=== PATIENT | female | born 1955 | race Caucasian/White ===

== ENCOUNTER 2016-09-02 22:15 | Outpatient (CLI) | payer MEDICARE | END 2016-09-02 22:16 | disposition short-term general hospital (02) | DX: S81.802A Unspecified open wound, left lower leg, initial encounter (principal); W05.0XXA Fall from non-moving wheelchair, initial encounter; Y92.038 Other place in apartment as the place of occurrence of the external cause | CPT/HCPCS: A0425; A0429 ==

== ENCOUNTER 2016-09-25 18:08 | Outpatient (CLI) | payer MEDICARE | END 2016-09-25 18:09 | disposition short-term general hospital (02) | LOC: EMS 18:08 | PROVIDERS: ATTEND Surgery | DX: R68.89 Other general symptoms and signs (principal) | CPT/HCPCS: A0425; A0429 ==

== ENCOUNTER 2016-10-10 11:51 | Outpatient (CLI) | payer MEDICARE | END 2016-10-10 11:52 | disposition short-term general hospital (02) | LOC: EMS 11:51 | PROVIDERS: ATTEND Surgery | DX: G43.909 Migraine, unspecified, not intractable, without status migrainosus (principal) | CPT/HCPCS: A0425; A0429 ==

== ENCOUNTER 2017-01-25 23:15 | Outpatient (CLI) | payer MEDICARE | END 2017-01-25 23:16 | disposition short-term general hospital (02) | LOC: EMS 23:15 | PROVIDERS: ATTEND Surgery | DX: R58 Hemorrhage, not elsewhere classified (principal) | CPT/HCPCS: A0425; A0429 ==

== ENCOUNTER 2017-01-30 17:11 | Outpatient (CLI) | payer MEDICARE | END 2017-01-30 17:12 | disposition short-term general hospital (02) | LOC: EMS 17:11 | PROVIDERS: ATTEND Surgery | DX: M79.606 Pain in leg, unspecified (principal); M25.559 Pain in unspecified hip | CPT/HCPCS: A0425; A0429 ==

== ENCOUNTER 2017-07-18 13:27 | Outpatient (CLI) | payer MEDICARE | END 2017-07-18 13:28 | disposition EMS.NT | LOC: EMS 13:27 | PROVIDERS: ATTEND Surgery | DX: Z03.89 Encounter for observation for other suspected diseases and conditions ruled out (principal) ==

== ENCOUNTER 2017-07-22 10:06 | Outpatient (CLI) | payer MEDICARE | END 2017-07-22 10:07 | disposition short-term general hospital (02) | LOC: EMS 10:06 | PROVIDERS: ATTEND Surgery | DX: R58 Hemorrhage, not elsewhere classified (principal); R05 Cough | CPT/HCPCS: A0425; A0429 ==

== ENCOUNTER 2017-09-26 13:26 | Outpatient (CLI) | payer MEDICARE | END 2017-09-26 13:27 | disposition short-term general hospital (02) | LOC: EMS 13:26 | PROVIDERS: ATTEND Surgery | DX: S91.309A Unspecified open wound, unspecified foot, initial encounter (principal); X58.XXXA Exposure to other specified factors, initial encounter | CPT/HCPCS: A0425; A0429 ==

== ENCOUNTER 2017-10-12 16:18 | Outpatient (CLI) | payer MEDICARE | END 2017-10-12 16:19 | disposition EMS.NT | LOC: EMS 16:18 | PROVIDERS: ATTEND Surgery | DX: Z03.89 Encounter for observation for other suspected diseases and conditions ruled out (principal) ==

== ENCOUNTER 2018-02-27 15:46 | Outpatient (CLI) | payer MEDICARE | END 2018-02-27 15:47 | disposition critical access hospital (66) | LOC: EMS 15:46 | PROVIDERS: ATTEND Surgery | DX: R51 Headache (principal); R10.2 Pelvic and perineal pain; R19.7 Diarrhea, unspecified | CPT/HCPCS: A0425; A0429 ==

== ENCOUNTER 2018-02-27 16:31 | Emergency (ER) | payer MEDICARE ==
--- NOTE | 2018-02-27 17:06 | ED Physician Documentation ---
PD HPI ABD PAIN - Stated complaint Stated Complaint: ABD PX - Chief complaint Chief Complaint: General - History obtained from History obtained from: Patient - History of Present Illness Timing - onset: Today Timing - duration: Days (1) Timing - details: Gradual onset, Still present Quality: Cramping, Aching, Pain (She is having pain in the lower abdomen and pelvic area progressive through the day. 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 She states she was unable to pass a catheter today as she typically would. She is feeling that her bladder is full. She has pain in the bladder and pelvic area into the low back. She had not noticed any fever or chills. She had not noticed dysuria but typically does not have sensation in that area. She also had an onset of a migraine type headache through the afternoon.) Location: Suprapubic Radiation: Left flank, Right flank Worsened by: Moving, Palpation Associated symptoms: Nausea, Other (unable to self cath as usual, feeling the catheter did not want to go in.). No: Fever, Diarrhea Similar symptoms before: Has not had sx before Recently seen: Not recently seen Review of Systems Constitutional: denies: Fever, Chills, Myalgias Nose: denies: Rhinorrhea / runny nose, Congestion Throat: denies: Sore throat Respiratory: denies: Cough GI: reports: Abdominal Pain, Nausea. denies: Vomiting, Constipation : denies: Incontinent Skin: denies: Rash, Lesions Neurologic: reports: Headache (this afternoon, feeling like migraine) PD PAST MEDICAL HISTORY - Past Medical History Cardiovascular: None Respiratory: None Musculoskeletal: Paraplegia (due to spinal cord injury) - Present Medications Home Medications: Ambulatory Orders Medication Instructions Recorded Confirmed 5-Hydroxytryptophan (5-Htp) [5-Htp] 100 mg PO BID 10/07/12 10/07/12 Aspirin EC [Ecotrin] 325 mg PO BID 10/07/12 10/07/12 Diphenhydramine HCl [Benadryl] 50 mg PO PRN 10/07/12 10/07/12 Anh 500 mg PO DAILY 10/07/12 10/07/12 Metoclopramide [Reglan] 5 mg PO Q6H 10/07/12 10/07/12 Morphine Sulfate [Ms Contin] 30 mg PO TID 10/07/12 10/07/12 Multivitamin [Multivitamins] 1 each PO BID 10/07/12 10/07/12 Ondansetron Oral Soln [Zofran] 4 mg PO Q6H PRN 10/07/12 10/07/12 Oxybutynin [Ditropan] 10 mg PO TID 10/07/12 10/07/12 Prochlorperazine [Compazine] 5 mg PO Q6H PRN 10/07/12 10/07/12 Sennosides [Senna] 8.6 mg PO PRN 10/07/12 10/07/12 Vitamin E (Dl,Tocopheryl Acet) 15 unit PO BID 10/07/12 10/07/12 [Vitamin E] Ceftriaxone [Rocephin] 2 gm IV DAILY 01/08/13 01/08/13 Docusate Sodium 250 mg PO 01/08/13 01/08/13 Loratadine 10 mg PO DAILY 01/08/13 01/08/13 Vancomycin HCl in Dextrose 5 % 750 mg IV BID 01/08/13 01/08/13 [Vancomycin 750 mg/150 ml Bag] Cephalexin [Keflex] 500 mg PO QID #24 capsule 02/28/18 Ondansetron Odt [Zofran] 4 mg TL Q6H PRN #15 tablet 02/28/18 - Allergies Allergies/Adverse Reactions: Allergies Allergy/AdvReac Type Severity Reaction Status Date / Time Penicillins Allergy Mild Rash Verified 02/27/18 17:52 chlorhexidine Allergy Unknown Itching Verified 02/05/13 14:16 PD ED PE NORMAL - Vitals Vital signs reviewed: Yes - General General: Alert and oriented X 3, Well developed/nourished, Other (appears uncomfortable) - HEENT HEENT: Atraumatic, Pharynx benign - Neck Neck: Supple, no meningeal sign, No adenopathy - Cardiac Cardiac: RRR, No murmur - Respiratory Respiratory: Clear bilaterally - Abdomen Abdomen: Normal bowel sounds, Soft, Other (some distension in suprapubic area; bladder scanner showed about 400 ml. Tender suprapubic area. ) - Female Female : Deferred - Back Back: No CVA TTP - Derm Derm: Normal color, Warm and dry Results - Vitals Vitals: Vital Signs - 24 hr 02/27/18 02/27/18 02/27/18 16:39 19:43 22:16 Temperature 36.6 C 36.7 C Heart Rate 100 76 85 Respiratory 100 H 16 18 Rate Blood Pressure 157/83 H 126/78 133/68 H O2 Saturation 97 100 97 02/28/18 00:18 Temperature 36.7 C Heart Rate 73 Respiratory 16 Rate Blood Pressure 135/82 H O2 Saturation 96 Oxygen O2 Source Room air - Labs Labs: Laboratory Tests 02/27/18 02/27/18 02/27/18 17:25 17:25 17:45 WBC 6.7 RBC 3.56 L Hgb 9.2 L Hct 28.8 L MCV 80.9 L MCH 25.8 L MCHC 31.9 L RDW 16.0 H Plt Count 255 MPV 7.5 L Neut # (Auto) 4.6 Lymph # (Auto) 1.5 [place] # (Auto) 0.5 Eos # (Auto) 0.1 Baso # (Auto) 0.0 Absolute Nucleated RBC 0.00 Nucleated RBC % 0.1 Sodium 139 Potassium 3.0 L Chloride 105 Carbon Dioxide 27 Anion Gap 7.0 BUN 13 Creatinine 0.3 L Estimated GFR (MDRD) 226 Glucose 100 Lactic Acid Calcium 8.4 L Total Bilirubin 0.5 AST 28 ALT 35 Alkaline Phosphatase 63 Total Protein 7.0 Albumin 3.2 Globulin 3.8 Albumin/Globulin Ratio 0.8 L Lipase 26 Urine Color YELLOW Urine Clarity CLEAR Urine pH 6.0 Ur Specific Pope 1.025 Urine Protein NEGATIVE Urine Glucose (UA) NEGATIVE Urine Ketones NEGATIVE Urine Occult Blood NEGATIVE Urine Nitrite POSITIVE H Urine Bilirubin NEGATIVE Urine Urobilinogen 0.2 (NORMAL) Ur Leukocyte Esterase TRACE H Urine RBC 0-5 Urine WBC 11-25 H Ur Squamous Epith Cells RARE Squamous Urine Bacteria Many H Ur Microscopic Review INDICATED Urine Culture Comments INDICATED 02/27/18 17:55 WBC RBC Hgb Hct MCV MCH MCHC RDW Plt Count MPV Neut # (Auto) Lymph # (Auto) [place] # (Auto) Eos # (Auto) Baso # (Auto) Absolute Nucleated RBC Nucleated RBC % Sodium Potassium Chloride Carbon Dioxide Anion Gap BUN Creatinine Estimated GFR (MDRD) Glucose Lactic Acid 0.6 Calcium Total Bilirubin AST ALT Alkaline Phosphatase Total Protein Albumin Globulin Albumin/Globulin Ratio Lipase Urine Color Urine Clarity Urine pH Ur Specific Pope Urine Protein Urine Glucose (UA) Urine Ketones Urine Occult Blood Urine Nitrite Urine Bilirubin Urine Urobilinogen Ur Leukocyte Esterase Urine RBC Urine WBC Ur Squamous Epith Cells Urine Bacteria Ur Microscopic Review Urine Culture Comments PD MEDICAL DECISION MAKING - ED course Complexity details: reviewed results (Bladder scanner showed approximately 400 mL. She was having troubles with self catheters catheterizing. Nursing placed a Stephens here and did get out over 400 mL of fluid. There is no difficulty with the Stephens catheter. However the urine does show signs of infection. I presume this is causing some spasming of the urethra and perhaps some inflammation. As such I think the catheter should stay in while we treat the infection to guarantee urine output as opposed to continuing the intermittent self caths. I think after a few days on antibiotics she could be attempted to have the catheter out and resume her normal intermittent catheterizations. She was given some IV fluids and medications in her abdominal pain improved which was mostly related to the decompression of the bladder. Her headache improved as well and that seems like 1 of her migraine type headaches. She is feeling much better at this time. However she does not have a way home except by bus so she will need to wait in the morning to be able to get home.) Departure - Departure Disposition: Home, Self Care Clinical Impression: Lower abdominal pain, Urinary retention UTI (urinary tract infection) Qualifiers: Urinary tract infection type: catheter-associated UTI Indwelling urinary catheter type: unspecified Encounter type: initial encounter Qualified Code(s): T83.511A - Infection and inflammatory reaction due to indwelling urethral catheter, initial encounter; N39.0 - Urinary tract infection, site not specified Migraine headache Qualifiers: Migraine type: without aura Status migrainosus presence: without status migrainosus Intractability: not intractable Qualified Code(s): G43.009 - Migraine without aura, not intractable, without status migrainosus Condition: Stable Record reviewed to determine appropriate education?: Yes Instructions: ED UTI Cystitis Female Follow-Up: Neo Pritchard MD [Primary Care Provider] - Prescriptions: Cephalexin [Keflex] 500 mg PO QID #24 capsule Ondansetron Odt [Zofran] 4 mg TL Q6H PRN #15 tablet PRN Reason: Nausea / Vomiting Comments: You do have a urinary tract infection which is likely causing some inflammation around the urethra and making it difficult for the self cath. I would leave the indwelling catheter in for several days while we treat the infection with cephalexin over the next week. Ondansetron if needed for nausea. After we have treated the infection for several days, we could then have the catheter out and resume the intermittent self caths which is actually better in the long run. Follow-up with your primary care early next week, call tomorrow for an appointment. Drink lots of fluids and continue usual medications.
[2018-02-27 17:34] LABS: BASOPHILS % (AUTO) 0.5 %; EOSINOPHILS # (AUTO) 0.1 10^3/uL (0.0-0.7); EOSINOPHILS % (AUTO) 1.2 %; HGB - HEMOGLOBIN 9.2 g/dL (12.0-16.0); LYMPHOCYTES # (AUTO) 1.5 10^3/uL (1.5-3.5); LYMPHOCYTES % (AUTO) 23.1 %; MEAN CORPUSCULAR HEMOGLOBIN 25.8 pg (27.0-31.0); MEAN CORPUSCULAR HGB CONC 31.9 g/dL (32.0-36.0); MEAN CORPUSCULAR VOLUME 80.9 fL (81.0-99.0); MEAN PLATELET VOLUME 7.5 fL (7.9-10.8); MONOCYTES # (AUTO) 0.5 10^3/uL (0.0-1.0); MONOCYTES % (AUTO) 6.9 %; NEUTROPHILS # (AUTO) 4.6 10^3/uL (1.5-6.6); NEUTROPHILS % (AUTO) 68.3 %; PLT - PLATELET COUNT 255 10^3/uL (130-450); RED BLOOD COUNT 3.56 10^6/uL (4.20-5.40); WHITE BLOOD COUNT 6.7 x10^3/uL (4.8-10.8)
[2018-02-27] MEDS ORDERED: MORPHINE 10 MG/ML VIAL IVP STA ×2 (17:39→22:30)
[2018-02-27] MEDS ORDERED: SODIUM CHLORIDE 0.9% 1,000 ML IV ONE (17:40)
[2018-02-27] MEDS ORDERED: KETOROLAC 15 MG/ML VIAL IVP STA (17:40)
[2018-02-27] MEDS ORDERED: METOCLOPRAMIDE 10 MG/2 ML VIAL IVP STA (17:40)
[2018-02-27 17:46] LABS: ALBUMIN 3.2 g/dL (3.2-5.5); ALBUMIN/GLOBULIN RATIO 0.8 (1.0-2.2); BILIRUBIN,TOTAL 0.5 mg/dL (0.2-1.0); CALCIUM 8.4 mg/dL (8.5-10.3); CREATININE 0.3 mg/dL (0.4-1.0)
[2018-02-27 17:56] LABS: BILIRUBIN,URINE NEGATIVE (NEGATIVE); GLUCOSE, URINE (UA) NEGATIVE (NEGATIVE); KETONES,URINE (UA) NEGATIVE (NEGATIVE); LEUKOCYTE ESTERASE, URINE TRACE (NEGATIVE); NITRITE,URINE POSITIVE (NEGATIVE); OCCULT BLOOD,URINE NEGATIVE (NEGATIVE); PROTEIN,URINE NEGATIVE (NEGATIVE); UROBILINOGEN,URINE 0.2 (NORMAL) E.U./dL (NORMAL)
[2018-02-27 18:05] LABS: BACTERIA,URINE Many /HPF (None Seen); CLARITY,URINE CLEAR (CLEAR); RBC,URINE 0-5 /HPF (0-5); SQUAMOUS EPITHELIAL CELL,UR RARE Squamous (<= Few)
[2018-02-27] MEDS ORDERED: cefTRIAXone 1 GM VIAL IVP STA (18:25)
[2018-02-28] MEDS ORDERED: LOPERAMIDE 2 MG CAPSULE PO STA (02:04)
[2018-02-28 02:13] VITALS: BP 165/72
== END 2018-02-28 02:43 | disposition home or self-care (01) ==
LOC: EDUNIT# → ED 16:31
DX: T83.511A Infection and inflammatory reaction due to indwelling urethral catheter, initial encounter (principal); N39.0 Urinary tract infection, site not specified; G43.009 Migraine without aura, not intractable, without status migrainosus; G82.20 Paraplegia, unspecified; R11.0 Nausea
CPT/HCPCS: 36415; 51703; 80053; 81001; 83605; 83690; 85025; 87077; 87086; 87181; 96361; 96374; 96375; 96376; 99283; 99284; A9270; J2765; 81003

== ENCOUNTER 2018-03-07 14:16 | Outpatient (CLI) | payer MEDICARE | END 2018-03-07 14:17 | disposition short-term general hospital (02) | LOC: EMS 14:16 | PROVIDERS: ATTEND Surgery | DX: R10.9 Unspecified abdominal pain (principal) | CPT/HCPCS: A0425; A0429 ==

== ENCOUNTER 2018-03-17 19:51 | Outpatient (CLI) | payer MEDICARE | END 2018-03-17 19:52 | disposition EMS.NT | LOC: EMS 19:51 | PROVIDERS: ATTEND Surgery | DX: S91.301A Unspecified open wound, right foot, initial encounter (principal); X58.XXXA Exposure to other specified factors, initial encounter ==

== ENCOUNTER 2018-03-22 16:11 | Outpatient (CLI) | payer MEDICARE | END 2018-03-22 16:12 | disposition short-term general hospital (02) | LOC: EMS 16:11 | PROVIDERS: ATTEND Surgery | DX: M25.552 Pain in left hip (principal); W05.0XXA Fall from non-moving wheelchair, initial encounter; Y92.039 Unspecified place in apartment as the place of occurrence of the external cause | CPT/HCPCS: A0425; A0429; A0888 ==

== ENCOUNTER 2018-04-21 13:30 | Emergency (ER) | payer MEDICARE ==
--- NOTE | 2018-04-21 14:03 | ED Physician Documentation ---
PD HPI SKIN - Stated complaint Stated Complaint: WOUND INFECTION/FEVER - Chief complaint Chief Complaint: Wound - History obtained from History obtained from: Patient - History of Present Illness Timing - onset: Today, Yesterday Timing - duration: Days (couple) Timing - details: Gradual onset, Still present, Waxing and waning Location: Other (she has sores on feet/toes with redness for couple of days. Also history of sacral area pressure sores but cannot see those areas. She does intermittent self cath at home for urine. She does own self care at home.) Quality / character: Discolored (redness of feet), Draining Review of Systems Constitutional: reports: Fever (today) Nose: denies: Rhinorrhea / runny nose, Congestion Throat: denies: Sore throat Cardiac: denies: Chest pain / pressure Respiratory: denies: Dyspnea, Cough GI: reports: Abdominal Pain (lower abd/periumbilical area), Nausea. denies: Abdominal Swelling, Vomiting, Diarrhea : reports: Unable to Void (does self-cath 3-4 times daily chronically.) Skin: reports: Lesions (ulcerations/pressure sores on feet and sacral/inguinal areas.). denies: Rash Neurologic: reports: Focal weakness (both legs from waist down due to prior T12 injury.) PD PAST MEDICAL HISTORY - Past Medical History Cardiovascular: None Respiratory: None Neuro: Migraines, Other : Kidney stones, Other Psych: Anxiety Musculoskeletal: Paraplegia (due to spinal cord injury) - Past Surgical History Past Surgical History: Yes - Present Medications Home Medications: Ambulatory Orders Medication Instructions Recorded Confirmed 5-Hydroxytryptophan (5-Htp) [5-Htp] 100 mg PO BID 10/07/12 10/07/12 Aspirin EC [Ecotrin] 325 mg PO BID 10/07/12 10/07/12 Diphenhydramine HCl [Benadryl] 50 mg PO PRN 10/07/12 10/07/12 Anh 500 mg PO DAILY 10/07/12 10/07/12 Metoclopramide [Reglan] 5 mg PO Q6H 10/07/12 10/07/12 Morphine Sulfate [Ms Contin] 30 mg PO TID 10/07/12 10/07/12 Multivitamin [Multivitamins] 1 each PO BID 10/07/12 10/07/12 Ondansetron Oral Soln [Zofran] 4 mg PO Q6H PRN 10/07/12 10/07/12 Oxybutynin [Ditropan] 10 mg PO TID 10/07/12 10/07/12 Prochlorperazine [Compazine] 5 mg PO Q6H PRN 10/07/12 10/07/12 Sennosides [Senna] 8.6 mg PO PRN 10/07/12 10/07/12 Vitamin E (Dl,Tocopheryl Acet) 15 unit PO BID 10/07/12 10/07/12 [Vitamin E] Ceftriaxone [Rocephin] 2 gm IV DAILY 01/08/13 01/08/13 Docusate Sodium 250 mg PO 01/08/13 01/08/13 Loratadine 10 mg PO DAILY 01/08/13 01/08/13 Vancomycin HCl in Dextrose 5 % 750 mg IV BID 01/08/13 01/08/13 [Vancomycin 750 mg/150 ml Bag] Cephalexin [Keflex] 500 mg PO QID #24 capsule 02/28/18 Ondansetron Odt [Zofran] 4 mg TL Q6H PRN #15 tablet 02/28/18 - Allergies Allergies/Adverse Reactions: Allergies Allergy/AdvReac Type Severity Reaction Status Date / Time Penicillins Allergy Mild Rash Verified 04/21/18 13:43 chlorhexidine Allergy Unknown Itching Verified 04/21/18 13:43 - Social History Does the pt smoke?: No Smoking Status: Never smoker Does the pt drink ETOH?: No Does the pt have substance abuse?: No - Immunizations Immunizations are current?: Yes - POLST Patient has POLST: No PD ED PE NORMAL - Vitals Vital signs reviewed: Yes - General General: Alert and oriented X 3, Well developed/nourished - HEENT HEENT: Ears normal, Moist mucous membranes, Pharynx benign - Neck Neck: Supple, no meningeal sign, No adenopathy - Cardiac Cardiac: No murmur. No: RRR (tachy but regular) - Respiratory Respiratory: No respiratory distress, Clear bilaterally - Abdomen Abdomen: Normal bowel sounds, Soft, Non distended, No organomegaly, Other (tender with some fullness in periumbilical area. Poor sensation at suprapubic area related to prior cord defect. Legs paraplegic. ) - Female Female : Deferred - Rectal Rectal: Deferred - Back Back: No CVA TTP - Derm Derm: Normal color, Warm and dry - Neuro Neuro: Other (no motor ability in legs due to prior cord injury T 12. ) Results - Vitals Vitals: Vital Signs - 24 hr 04/21/18 04/21/18 04/21/18 13:30 13:36 14:10 Temperature 38.7 C H 38 C H Heart Rate 110 H 116 H 111 H Respiratory 20 24 22 Rate Blood Pressure 122/51 L 147/60 H 144/70 H O2 Saturation 96 98 97 04/21/18 04/21/18 04/21/18 14:30 14:57 16:00 Temperature 38 C H Heart Rate 102 H 108 H 98 Respiratory 16 20 18 Rate Blood Pressure 112/66 131/69 H 118/52 L O2 Saturation 95 5 L 95 04/21/18 04/21/18 04/21/18 16:54 17:30 18:07 Temperature Heart Rate 99 94 93 Respiratory 21 16 18 Rate Blood Pressure 142/75 H 106/62 102/60 O2 Saturation 96 98 98 04/21/18 04/21/18 04/21/18 18:37 19:45 20:31 Temperature 36.7 C 36.4 C L Heart Rate 90 96 93 Respiratory 18 18 14 Rate Blood Pressure 109/82 H 103/52 L 118/50 L O2 Saturation 98 97 95 Oxygen O2 Source Room air - Labs Labs: Microbiology 04/21/18 14:25 Wound Culture - Preliminary Ankle - Left 04/21/18 14:25 Wound Culture - Preliminary Buttock - Left Laboratory Tests 04/21/18 04/21/18 04/21/18 14:00 14:00 14:00 WBC 14.7 H RBC 3.53 L Hgb 8.0 L Hct 25.1 L MCV 71.0 L MCH 22.5 L MCHC 31.7 L RDW 18.4 H Plt Count 476 H MPV 7.1 L Neut # (Auto) 12.7 H Lymph # (Auto) 0.9 L [place] # (Auto) 1.0 Eos # (Auto) 0.0 Baso # (Auto) 0.0 Absolute Nucleated RBC 0.00 Nucleated RBC % 0.0 PT 14.8 H INR 1.3 H APTT 25.9 Sodium 134 L Potassium 2.9 L Chloride 98 L Carbon Dioxide 28 Anion Gap 8.0 BUN 7 Creatinine 0.3 L Estimated GFR (MDRD) 226 Glucose 131 H Lactic Acid Calcium 8.3 L Total Bilirubin 0.7 AST 21 ALT 18 Alkaline Phosphatase 55 Total Protein 7.4 Albumin 2.7 L Globulin 4.7 H Albumin/Globulin Ratio 0.6 L Lipase 21 L Urine Color Urine Clarity Urine pH Ur Specific [place] Urine Protein Urine Glucose (UA) Urine Ketones Urine Occult Blood Urine Nitrite Urine Bilirubin Urine Urobilinogen Ur Leukocyte Esterase Ur Microscopic Review Urine Culture Comments 04/21/18 04/21/18 14:00 15:45 WBC RBC Hgb Hct MCV MCH MCHC RDW Plt Count MPV Neut # (Auto) Lymph # (Auto) [place] # (Auto) Eos # (Auto) Baso # (Auto) Absolute Nucleated RBC Nucleated RBC % PT INR APTT Sodium Potassium Chloride Carbon Dioxide Anion Gap BUN Creatinine Estimated GFR (MDRD) Glucose Lactic Acid 0.7 Calcium Total Bilirubin AST ALT Alkaline Phosphatase Total Protein Albumin Globulin Albumin/Globulin Ratio Lipase Urine Color YELLOW Urine Clarity CLEAR Urine pH 5.5 Ur Specific [place] >=1.030 H Urine Protein NEGATIVE Urine Glucose (UA) NEGATIVE Urine Ketones NEGATIVE Urine Occult Blood NEGATIVE Urine Nitrite NEGATIVE Urine Bilirubin NEGATIVE Urine Urobilinogen 0.2 (NORMAL) Ur Leukocyte Esterase NEGATIVE Ur Microscopic Review NOT INDICATED Urine Culture Comments NOT INDICATED - Rads (name of study) chest xray Radiology: Prelim report reviewed, EMP read contemporaneously (no acute process), See rad report abd/pelvic CT Radiology: Prelim report reviewed (Soft tissue 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 She is having abdominal pain and so I did do a CT abdomen for concern of other intra-abdominal process causing her fever and pain. The pain may not be referrable into the sacral area because of her spinal injury. The CT abdomen did not show any acute intra-abdominal process. However there were pelvic infections and labial abscess related to fistula formations from these soft tissue of the decubitus. I talked with our hospitalist who felt that the patient's surgical approach and care would be beyond the capacity of our critical care hospital. I talked with the [facility] sales representative and coordinating physician who said they do not have any beds available at their facilities of [facility] or [facility] and gave approval for transfer to any bed space we could find available. [facility] was contacted and did have beds available and they would accept transfer.), considered differential (She has fever and general feeling of illness. She is complicated patient with prior pressure sores and ulcerations and pelvic surgery as well as the paraplegia and prior UTIs with self cathing. She has had a little bit of cough recently as well. There are multiple potential causes for her fever and these will all need to be investigated. Concern for sepsis. ), d/w patient Departure - Departure Disposition: 02 Transfer Acute Care Hosp Clinical Impression: Wound infection, Pelvic abscess Sacral decubitus ulcer Qualifiers: Pressure injury stage: unspecified pressure injury stage Qualified Code(s): L89.159 - Pressure ulcer of sacral region, unspecified stage Fever Qualifiers: Fever type: due to other condition Qualified Code(s): R50.81 - Fever presenting with conditions classified elsewhere Condition: Stable Record reviewed to determine appropriate education?: Yes
[2018-04-21 14:10] LABS: BASOPHILS % (AUTO) 0.2 %; EOSINOPHILS % (AUTO) 0.1 %; LYMPHOCYTES # (AUTO) 0.9 10^3/uL (1.5-3.5); LYMPHOCYTES % (AUTO) 6.1 %; MEAN CORPUSCULAR HEMOGLOBIN 22.5 pg (27.0-31.0); MEAN CORPUSCULAR HGB CONC 31.7 g/dL (32.0-36.0); MEAN PLATELET VOLUME 7.1 fL (7.9-10.8); MONOCYTES % (AUTO) 6.9 %; NEUTROPHILS # (AUTO) 12.7 10^3/uL (1.5-6.6); NEUTROPHILS % (AUTO) 86.7 %; PLT - PLATELET COUNT 476 10^3/uL (130-450); RED BLOOD COUNT 3.53 10^6/uL (4.20-5.40); RED CELL DISTRIBUTION WIDTH 18.4 % (12.0-15.0); WHITE BLOOD COUNT 14.7 x10^3/uL (4.8-10.8)
[2018-04-21 14:18] LABS: INR 1.3 (0.8-1.2); PT - PROTHROMBIN TIME 14.8 secs (9.9-12.6)
[2018-04-21 14:28] LABS: ALBUMIN 2.7 g/dL (3.2-5.5); ALBUMIN/GLOBULIN RATIO 0.6 (1.0-2.2); BILIRUBIN,TOTAL 0.7 mg/dL (0.2-1.0); CALCIUM 8.3 mg/dL (8.5-10.3); CREATININE 0.3 mg/dL (0.4-1.0); TOTAL PROTEIN 7.4 g/dL (6.7-8.2)
[2018-04-21] MEDS ORDERED: SODIUM CHLORIDE 0.9% 1,000 ML IV ONE ×2 (14:37→17:28)
[2018-04-21] MEDS ORDERED: MORPHINE 10 MG/ML VIAL IVP STA (14:37)
[2018-04-21] MEDS ORDERED: ONDANSETRON 4 MG/2 ML VIAL IVP STA (14:38)
[2018-04-21] MEDS ORDERED: KETOROLAC 15 MG/ML VIAL IVP STA (14:42)
[2018-04-21] MEDS ORDERED: cefTRIAXone 1 GM VIAL IVP STA (14:42)
[2018-04-21] MEDS ORDERED: VANCOMYCIN INJ 1 GM in SODIUM CHLORIDE 0.9% 500 ML IV STA (14:43)
--- NOTE | 2018-04-21 14:43 | XRAY Report ---
Reason: tachy/febrile Procedure Date: 04/21/2018 Accession Number: [id number] / [id number] Procedure: XR - Chest 1 View X-Ray CPT Code: 46782 FULL RESULT: EXAM: CHEST RADIOGRAPHY EXAM DATE: 04/21/2018 02:07 PM. CLINICAL HISTORY: Tachycardic/febrile. COMPARISON: 07/09/2012. TECHNIQUE: 1 view. FINDINGS: Lungs/Pleura: No focal opacities evident. No pleural effusion. No pneumothorax. Stable geographic density superimposes over the left midlung possibly pleural-based, unchanged since 2012. Mediastinum: Within exam limitations, the cardiomediastinal contour is normal. Other: Stable appearance of spinal/scoliosis hardware, incompletely included. IMPRESSION: No infiltrates. RADIA
[2018-04-21] MEDS ORDERED: POTASSIUM BICARB 25 MEQ TABLET PO STA (14:54)
[2018-04-21] MEDS ORDERED: POTASSIUM CHLOR 10 MEQ/100 ML 10 MEQ/100 ML BAG IV ONE (14:54)
[2018-04-21] MEDS ORDERED: IOVERSOL 320 100 ML VIAL IVP ONE ×2 (15:19→16:51)
[2018-04-21 15:59] LABS: BILIRUBIN,URINE NEGATIVE (NEGATIVE); GLUCOSE, URINE (UA) NEGATIVE (NEGATIVE); KETONES,URINE (UA) NEGATIVE (NEGATIVE); LEUKOCYTE ESTERASE, URINE NEGATIVE (NEGATIVE); NITRITE,URINE NEGATIVE (NEGATIVE); OCCULT BLOOD,URINE NEGATIVE (NEGATIVE); PH,URINE 5.5 PH (5.0-7.5); PROTEIN,URINE NEGATIVE (NEGATIVE); UROBILINOGEN,URINE 0.2 (NORMAL) E.U./dL (NORMAL)
[2018-04-21 16:05] LABS: CLARITY,URINE CLEAR (CLEAR)
[2018-04-21] MEDS ORDERED: HYDROmorphone 1 MG/ML CARPUJECT IVP STA (17:28)
--- NOTE | 2018-04-21 17:49 | CT Report ---
Reason: lower abd pain and fever Procedure Date: 04/21/2018 Accession Number: [id number] / [id number] Procedure: CT - Abdomen/Pelvis W/ CPT Code: FULL RESULT: EXAM: CT ABDOMEN AND PELVIS EXAM DATE: 04/21/2018 04:52 PM. CLINICAL HISTORY: Lower abdominal pain. Fever. Decubitus ulcers. COMPARISONS: CT ABDOMEN AND PELVIS WITH CONTRAST 07/10/2012 5:16 PM. TECHNIQUE: Routine helical CT imaging was performed through the abdomen and pelvis. IV contrast: 90 ML OPTIRAY 320. Enteric contrast: No. Reconstructions: Coronal and sagittal. In accordance with CT protocol optimization, one or more of the following dose reduction techniques were utilized for this exam: automated exposure control, adjustment of mA and/or KV based on patient size, or use of iterative reconstructive technique. FINDINGS: Lung Bases: Unremarkable. Liver: Normal. No masses. Gallbladder/Bile Ducts: Unremarkable. Spleen: Stable mild splenomegaly. Pancreas: Normal. Adrenal Glands: Normal. Kidneys: Normal. No masses or hydronephrosis. Peritoneal Cavity/Bowel: Normal. No free fluid, free air or adenopathy. No masses or acute inflammatory process. Appendix not visualized but no inflammatory changes adjacent to the cecum. Pelvic Organs: Interval removal of the Stephens catheter. No stones nor air in the small caliber urinary bladder. Normal caliber uterus. Persistent trace amount of free fluid. No adnexal mass lesions. Increasing overall extent and volume of the markedly thickened and indurated soft tissues involving the subcutaneous fat to the left of midline at the sacrococcygeal region, centrally at the level of the rectum, and posteriorly involving the gluteal creases, left much greater than right. Interval increase in caliber and depth of the ulcerations and large sinus tracts, with the sinus tracts now extending into the left labia. The left labial collection of air and fluid measures over 2.1 x 5.1 x 2 cm, equivocal tiny patent fistulous tract between this fluid collection and the adjacent left peroneal ulceration. Vasculature: No aneurysm. Increasing caliber and number of common bifemoral hepatic vein collaterals, extending from right to left due to stable marked decrease in caliber of the left iliac venous systems. Bones: Chronic bony reactive changes both inferior pubic rami, if shims, and left acetabulum. No acute trabecular cortical disruption. Increasing effusion and disorganization of the left hip joint with the epicenter of the left humeral head 50% superior and anterior to the acetabular roof. Persistent moderate right hip effusion. Remote L2 and L3 corpectomy, remote thoracolumbar spine fusion. Other: None. IMPRESSION: 1. Stable mild splenomegaly. 2. Stable trace amount of free pelvic fluid. 3. No other intraabdominal evidence of reactive or inflammatory changes. 4. Interval progression of extensive communicating decubitus ulcers, wide open fistulous tracts, and associated subcutaneous fat necrosis and edema involving the pelvic floor, perineum, gluteal creases. 5. New 2.1 x 5.1 x 2.0 cm air and fluid collection left labia, previous phlegmon in this region. Probable tiny fistulous connection to the left peroneal ulceration bed, please note that isolated gas producing abscess not excluded. 6. Increasing right to left cross femoral venous collaterals due to extremely small caliber left iliac venous system. 7. Increasing disorganization left hip joint with increasing large left effusion. Correlate clinically to determine if this apparent dislocation is transitory or fixed. 8. Stable moderate right hip effusion. RADIA
[2018-04-22] MEDS ORDERED: HYDROmorphone 1 MG/ML CARPUJECT IVP STA (01:21)
[2018-04-22 03:12] VITALS: BP 120/65
== END 2018-04-22 03:05 | disposition short-term general hospital (02) ==
LOC: ED 13:30
DX: N76.4 Abscess of vulva (principal); N73.9 Female pelvic inflammatory disease, unspecified; L89.159 Pressure ulcer of sacral region, unspecified stage; L89.609 Pressure ulcer of unspecified heel, unspecified stage; L98.8 Other specified disorders of the skin and subcutaneous tissue; R05 Cough; G82.20 Paraplegia, unspecified; S24.104S Unspecified injury at T11-T12 level of thoracic spinal cord, sequela; X58.XXXS Exposure to other specified factors, sequela; Z79.82 Long term (current) use of aspirin
CPT/HCPCS: 36415; 51701; 51703; 71045; 74177; 80053; 81001; 81003; 83605; 83690; 85025; 85610; 85730; 87040; 87070; 87077; 87086; 87181; 87205; 96361; 96365; 96366; 96368; 96375; 96376; 99284; 99285

== ENCOUNTER 2018-05-27 21:23 | Outpatient (CLI) | payer MEDICARE | END 2018-05-27 21:24 | disposition home or self-care (01) | LOC: EMS 21:23 | PROVIDERS: ATTEND Surgery | DX: S91.301S Unspecified open wound, right foot, sequela (principal); Z99.3 Dependence on wheelchair | CPT/HCPCS: A0425; A0429 ==

== ENCOUNTER 2018-05-27 21:50 | Emergency (ER) | payer MEDICARE ==
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
[2018-05-28] MEDS: PIPERACILLIN/TAZOBACTAM 4.5 GM in SODIUM CHLORIDE 0.9% MINIBAG 100 ML IV STA (00:22)
[2018-05-28] MEDS: HYDROmorphone 1 MG/ML CARPUJECT IVP STA (00:22)
[2018-05-28 03:28] VITALS: BP 128/102
== END 2018-05-28 03:28 | disposition home or self-care (01) ==
LOC: EDUNIT# → ED 21:50
DX: L89.153 Pressure ulcer of sacral region, stage 3 (principal); L89.603 Pressure ulcer of unspecified heel, stage 3; M18.9 Osteoarthritis of first carpometacarpal joint, unspecified; G82.20 Paraplegia, unspecified
CPT/HCPCS: 80053; 85025; 85651; 86140; 96365; 96375; 99283

== ENCOUNTER 2018-05-28 03:44 | Outpatient (CLI) | payer MEDICARE | END 2018-05-28 03:45 | disposition home or self-care (01) | LOC: EMS 03:44 | PROVIDERS: ATTEND Surgery | DX: S91.311A Laceration without foreign body, right foot, initial encounter (principal); G82.20 Paraplegia, unspecified | CPT/HCPCS: A0425; A0428 ==

== ENCOUNTER 2018-05-28 08:00 | Outpatient (CLI) | payer MEDICARE ==
[2018-05-28 15:01] LABS: BASOPHILS % (AUTO) 0.4 %; EOSINOPHILS # (AUTO) 0.2 10^3/uL (0.0-0.7); EOSINOPHILS % (AUTO) 2.9 %; LYMPHOCYTES # (AUTO) 1.9 10^3/uL (1.5-3.5); LYMPHOCYTES % (AUTO) 32.2 %; MEAN CORPUSCULAR HEMOGLOBIN 25.8 pg (27.0-31.0); MEAN CORPUSCULAR HGB CONC 32.7 g/dL (32.0-36.0); MEAN CORPUSCULAR VOLUME 78.9 fL (81.0-99.0); MEAN PLATELET VOLUME 8.7 fL (7.9-10.8); MONOCYTES # (AUTO) 0.5 10^3/uL (0.0-1.0); MONOCYTES % (AUTO) 7.9 %; NEUTROPHILS # (AUTO) 3.4 10^3/uL (1.5-6.6); NEUTROPHILS % (AUTO) 56.6 %; PLT - PLATELET COUNT 205 10^3/uL (130-450); RED BLOOD COUNT 3.47 10^6/uL (4.20-5.40); RED CELL DISTRIBUTION WIDTH 24.7 % (12.0-15.0); WHITE BLOOD COUNT 5.9 x10^3/uL (4.8-10.8)
[2018-05-28 15:21] LABS: ALBUMIN 3.1 g/dL (3.2-5.5); ALBUMIN/GLOBULIN RATIO 0.9 (1.0-2.2); ALKALINE PHOSPHATASE 57 IU/L (42-121); ALT ALANINE AMINOTRANSFERASE 24 IU/L (10-60); AST ASPARTATE AMINOTRANSFERASE 22 IU/L (10-42); BILIRUBIN,TOTAL 0.4 mg/dL (0.2-1.0); BUN - BLOOD UREA NITROGEN 15 mg/dL (6-20); CALCIUM 8.7 mg/dL (8.5-10.3); CARBON DIOXIDE - CO2 26 mmol/L (21-32); CHLORIDE 106 mmol/L (101-111); CREATININE 0.4 mg/dL (0.4-1.0); CRP - C-REACTIVE PROTEIN < 1.0 mg/dL (0-1.0); GFR - MDRD 162 (>89); GLUCOSE 88 mg/dL (70-100); SODIUM 139 mmol/L (135-145); TOTAL PROTEIN 6.7 g/dL (6.7-8.2)
[2018-05-28 16:44] LABS: PLATELET ESTIMATE, MANUAL NORMAL (130-450,000) (NORMAL); PLATELET MORPHOLOGY NORMAL APPEARANCE (NORMAL)
== END 2018-05-28 23:59 | disposition home or self-care (01) ==
LOC: LAB.R 08:00
PROVIDERS: ATTEND Internal Medicine
DX: M18.9 Osteoarthritis of first carpometacarpal joint, unspecified (principal)
CPT/HCPCS: 80053; 85025; 85651; 86140

== ENCOUNTER 2018-06-06 14:00 | Outpatient (CLI) | payer MEDICARE ==
[2018-06-06 19:28] LABS: BASOPHILS % (AUTO) 0.2 %; EOSINOPHILS # (AUTO) 0.2 10^3/uL (0.0-0.7); HGB - HEMOGLOBIN 9.5 g/dL (12.0-16.0); LYMPHOCYTES # (AUTO) 1.7 10^3/uL (1.5-3.5); MEAN CORPUSCULAR HEMOGLOBIN 25.4 pg (27.0-31.0); MEAN CORPUSCULAR HGB CONC 31.5 g/dL (32.0-36.0); MEAN CORPUSCULAR VOLUME 80.6 fL (81.0-99.0); MEAN PLATELET VOLUME 8.3 fL (7.9-10.8); MONOCYTES # (AUTO) 0.4 10^3/uL (0.0-1.0); MONOCYTES % (AUTO) 9.6 %; NEUTROPHILS # (AUTO) 2.1 10^3/uL (1.5-6.6); NEUTROPHILS % (AUTO) 48.2 %; PLT - PLATELET COUNT 229 10^3/uL (130-450); RED BLOOD COUNT 3.74 10^6/uL (4.20-5.40); RED CELL DISTRIBUTION WIDTH 22.3 % (12.0-15.0); WHITE BLOOD COUNT 4.4 x10^3/uL (4.8-10.8)
[2018-06-06 20:13] LABS: ALBUMIN 3.3 g/dL (3.2-5.5); ALBUMIN/GLOBULIN RATIO 0.9 (1.0-2.2); BILIRUBIN,TOTAL 0.4 mg/dL (0.2-1.0); CALCIUM 8.7 mg/dL (8.5-10.3); CREATININE 0.4 mg/dL (0.4-1.0); CRP - C-REACTIVE PROTEIN 1.2 mg/dL (0-1.0); TOTAL PROTEIN 7.1 g/dL (6.7-8.2)
== END 2018-06-06 23:59 | disposition home or self-care (01) ==
LOC: LAB.WCP 14:00
PROVIDERS: ATTEND Internal Medicine
DX: A41.9 Sepsis, unspecified organism (principal); L89.309 Pressure ulcer of unspecified buttock, unspecified stage
CPT/HCPCS: 80053; 85025; 85651; 86140

== ENCOUNTER 2018-06-09 12:00 | Outpatient (CLI) | payer MEDICARE | END 2018-06-09 12:01 | disposition home or self-care (01) | LOC: LAB.WCP 12:00 | PROVIDERS: ATTEND Family Medicine | DX: A41.9 Sepsis, unspecified organism (principal); S31.502D Unspecified open wound of unspecified external genital organs, female, subsequent encounter | CPT/HCPCS: 87493 ==

== ENCOUNTER 2018-07-02 13:30 | Outpatient (CLI) | payer MEDICARE ==
[2018-07-02 19:10] LABS: BILIRUBIN,URINE NEGATIVE (NEGATIVE); GLUCOSE, URINE (UA) NEGATIVE (NEGATIVE); KETONES,URINE (UA) NEGATIVE (NEGATIVE); LEUKOCYTE ESTERASE, URINE SMALL (NEGATIVE); NITRITE,URINE NEGATIVE (NEGATIVE); OCCULT BLOOD,URINE MODERATE (NEGATIVE); PH,URINE 6.5 PH (5.0-7.5); PROTEIN,URINE 100 mg/dL (NEGATIVE); UROBILINOGEN,URINE 0.2 (NORMAL) E.U./dL (NORMAL)
[2018-07-02 19:24] LABS: CLARITY,URINE CLEAR (CLEAR)
[2018-07-02 19:25] LABS: BACTERIA,URINE None Seen /HPF (None Seen); SQUAMOUS EPITHELIAL CELL,UR RARE Squamous (<= Few)
== END 2018-07-02 23:59 | disposition home or self-care (01) ==
LOC: LAB.WCP 13:30
PROVIDERS: ATTEND Family Medicine
DX: R33.9 Retention of urine, unspecified (principal); N31.9 Neuromuscular dysfunction of bladder, unspecified
CPT/HCPCS: 81001; 81003; 87086

== ENCOUNTER 2018-09-27 07:30 | Outpatient (CLI) | payer MEDICARE | END 2018-09-27 07:31 | disposition short-term general hospital (02) | LOC: EMS 07:30 | PROVIDERS: ATTEND Surgery | DX: R53.1 Weakness (principal); R11.2 Nausea with vomiting, unspecified; R19.7 Diarrhea, unspecified; M54.5 Low back pain | CPT/HCPCS: A0425; A0429; A0888 ==

== ENCOUNTER 2018-12-26 14:50 | Outpatient (CLI) | payer MEDICARE | END 2018-12-26 14:51 | disposition EMS.NT | LOC: EMS 14:50 | PROVIDERS: ATTEND Surgery | DX: M79.631 Pain in right forearm (principal); X12.XXXA Contact with other hot fluids, initial encounter; Y92.009 Unspecified place in unspecified non-institutional (private) residence as the place of occurrence of the external cause ==

== ENCOUNTER 2019-02-18 17:40 | Outpatient (CLI) | payer MEDICARE | END 2019-02-18 17:41 | disposition critical access hospital (66) | LOC: EMS 17:40 | PROVIDERS: ATTEND Surgery | DX: S91.302A Unspecified open wound, left foot, initial encounter (principal); S91.301A Unspecified open wound, right foot, initial encounter; R41.0 Disorientation, unspecified; R42 Dizziness and giddiness; R53.1 Weakness; Z99.3 Dependence on wheelchair; X58.XXXA Exposure to other specified factors, initial encounter | CPT/HCPCS: A0425; A0429 ==

== ENCOUNTER 2019-04-30 07:25 | Outpatient (CLI) | payer MEDICARE | END 2019-04-30 07:26 | disposition EMS.NT | LOC: EMS 07:25 | PROVIDERS: ATTEND Surgery | DX: Z03.89 Encounter for observation for other suspected diseases and conditions ruled out (principal) ==

== ENCOUNTER 2019-05-25 16:00 | Outpatient (CLI) | payer MEDICARE ==
[2019-05-25 18:59] LABS: BILIRUBIN,URINE NEGATIVE (NEGATIVE); GLUCOSE, URINE (UA) NEGATIVE (NEGATIVE); KETONES,URINE (UA) NEGATIVE (NEGATIVE); LEUKOCYTE ESTERASE, URINE NEGATIVE (NEGATIVE); NITRITE,URINE NEGATIVE (NEGATIVE); OCCULT BLOOD,URINE NEGATIVE (NEGATIVE); PROTEIN,URINE NEGATIVE (NEGATIVE); UROBILINOGEN,URINE 0.2 (NORMAL) E.U./dL (NORMAL)
[2019-05-25 19:01] LABS: CLARITY,URINE HAZY (CLEAR)
[2019-05-25 19:08] LABS: BACTERIA,URINE Few /HPF (None Seen); RBC,URINE 0-5 /HPF (0-5); SQUAMOUS EPITHELIAL CELL,UR FEW Squamous (<= Few)
== END 2019-05-25 23:59 | disposition home or self-care (01) ==
LOC: LAB.R 16:00
PROVIDERS: ATTEND Family Medicine
DX: N31.9 Neuromuscular dysfunction of bladder, unspecified (principal)
CPT/HCPCS: 81001; 81003; 87086; 87181

== ENCOUNTER 2019-05-27 17:08 | Outpatient (CLI) | payer MEDICARE | END 2019-05-27 17:09 | disposition critical access hospital (66) | LOC: EMS 17:08 | PROVIDERS: ATTEND Surgery | DX: R52 Pain, unspecified (principal); R50.9 Fever, unspecified | CPT/HCPCS: A0425; A0429 ==

== ENCOUNTER 2019-05-27 17:38 | Emergency (ER) | payer MEDICARE ==
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
[2019-05-27 18:17] LABS: BASOPHILS % (AUTO) 0.3 %; EOSINOPHILS # (AUTO) 0.1 10^3/uL (0.0-0.7); EOSINOPHILS % (AUTO) 1.2 %; HGB - HEMOGLOBIN 9.8 g/dL (12.0-16.0); LYMPHOCYTES % (AUTO) 15.8 %; MEAN CORPUSCULAR HEMOGLOBIN 27.7 pg (27.0-31.0); MEAN CORPUSCULAR HGB CONC 30.2 g/dL (32.0-36.0); MEAN CORPUSCULAR VOLUME 91.5 fL (81.0-99.0); MEAN PLATELET VOLUME 9.2 fL (7.9-10.8); MONOCYTES # (AUTO) 0.6 10^3/uL (0.0-1.0); MONOCYTES % (AUTO) 9.4 %; NEUTROPHILS # (AUTO) 4.8 10^3/uL (1.5-6.6); PLT - PLATELET COUNT 260 10^3/uL (130-450); RED BLOOD COUNT 3.54 10^6/uL (4.20-5.40); RED CELL DISTRIBUTION WIDTH 15.4 % (12.0-15.0); WHITE BLOOD COUNT 6.6 x10^3/uL (4.8-10.8)
[2019-05-27 18:30] LABS: ALBUMIN 3.1 g/dL (3.2-5.5); ALBUMIN/GLOBULIN RATIO 0.7 (1.0-2.2); BILIRUBIN,TOTAL 0.5 mg/dL (0.2-1.0); CALCIUM 8.4 mg/dL (8.5-10.3); CREATININE 0.4 mg/dL (0.4-1.0); TOTAL PROTEIN 7.3 g/dL (6.7-8.2)
[2019-05-27] MEDS ORDERED: IOVERSOL 320 100 ML VIAL IVP ONE ×2 (18:34→21:06)
--- NOTE | 2019-05-27 19:27 | XRAY Report ---
Reason: wounds to B feet Procedure Date: 05/27/2019 Accession Number: [id number] / [id number] Procedure: XR - Foot 2 View BILAT CPT Code: Final Report FULL RESULT: EXAMS: 1. RIGHT FOOT RADIOGRAPHY 2. LEFT FOOT RADIOGRAPHY EXAM DATE: 05/27/2019 07:10 PM. CLINICAL HISTORY: Wounds to bilateral feet. COMPARISON: None. TECHNIQUE: 2 views each foot. FINDINGS: Right: Bones: No fractures or evidence of osteomyelitis. There is generalized demineralization. Joints: Normal. No subluxations. Soft Tissues: Normal. No soft tissue swelling. Left: Bones: No fractures or evidence of osteomyelitis. There is generalized demineralization. Joints: Normal. No subluxations. Soft Tissues: Normal. No soft tissue swelling. IMPRESSION: No acute bony abnormality. RADIA
--- NOTE | 2019-05-27 19:33 | CT Report ---
Reason: pelvic wounds, decubitus ulcers Procedure Date: 05/27/2019 Accession Number: [id number] / [id number] Procedure: CT - PELVIS W CPT Code: Final Report FULL RESULT: EXAM: CT PELVIS EXAM DATE: 05/27/2019 07:06 PM. CLINICAL HISTORY: Pelvic wounds, decubitus ulcers. COMPARISONS: ABDOMEN/PELVIS W/ 02/18/2019 7:21 PM. TECHNIQUE: Routine helical CT imaging was performed through the pelvis. IV contrast: OPTI 320 100ML. Enteric contrast: No. Reconstructions: Coronal and sagittal. In accordance with CT protocol optimization, one or more of the following dose reduction techniques were utilized for this exam: automated exposure control, adjustment of mA and/or KV based on patient size, or use of iterative reconstructive technique. FINDINGS: Peritoneal Cavity/Bowel: Normal. No free fluid, free air or adenopathy. No masses or acute inflammatory process. Visualized small bowel loops are nondilated. The appendix is normal. There is moderate formed stool in the visualized colon without pericolonic fat stranding. No free air or free fluid. No lymphadenopathy. Pelvic Organs: The bladder is unremarkable with the uterus is unremarkable. No adnexal mass is identified. Vasculature: Mild aortic atherosclerotic calcification. Bones: Bilateral L5 and S1 pedicle screws, incompletely visualized bilateral lumbosacral longitudinal stabilization rods, prior corpectomy and bone graft implant incompletely visualized in the lumbar spine down to the upper L5 level, as before. There are dysplastic bilateral hips with subluxation, as before small bilateral hip joint effusions, as before. Dysplastic appearing pelvis. As before, there is chronic mild erosion and sclerosis at the left greater than right ischial tuberosities and ischiopubic rami. Other: Large left and small right open decubitus ischial wounds with extensive soft tissue thickening, as before. No distinct fluid collections are identified. Subcutaneous varicosities are again noted in the region of the mons pubis. IMPRESSION: 1. Large left and small right ischial decubitus open wounds with moderate soft tissue thickening, as before. No distinct fluid collection is identified. 2. Chronic changes of osteomyelitis with mild bone erosion and sclerosis ischial tuberosities and ischiopubic rami bilaterally, as before. RADIA
[2019-05-27] MEDS ORDERED: MORPHINE 2 MG/ML CARPUJECT IVP STA ×2 (19:53→22:54)
[2019-05-27] MEDS ORDERED: VANCOMYCIN INJ 1 GM in SODIUM CHLORIDE 0.9% 500 ML IV STA (20:03)
[2019-05-27] MEDS ORDERED: MEROPENEM 1 GM in SODIUM CHLORIDE 0.9% MINIBAG 100 ML IV STA (20:03)
[2019-05-27 20:07] LABS: BILIRUBIN,URINE NEGATIVE (NEGATIVE); CLARITY,URINE HAZY (CLEAR); GLUCOSE, URINE (UA) NEGATIVE (NEGATIVE); KETONES,URINE (UA) NEGATIVE (NEGATIVE); LEUKOCYTE ESTERASE, URINE TRACE (NEGATIVE); NITRITE,URINE POSITIVE (NEGATIVE); OCCULT BLOOD,URINE NEGATIVE (NEGATIVE); PROTEIN,URINE NEGATIVE (NEGATIVE); UROBILINOGEN,URINE 0.2 (NORMAL) E.U./dL (NORMAL)
[2019-05-27 20:13] LABS: BACTERIA,URINE Many /HPF (None Seen); RBC,URINE 0-5 /HPF (0-5); SQUAMOUS EPITHELIAL CELL,UR RARE Squamous (<= Few)
[2019-05-28] MEDS ORDERED: MORPHINE 2 MG/ML CARPUJECT IVP STA (02:01)
[2019-05-28] MEDS ORDERED: LORazepam 2 MG/ML VIAL IVP STA (02:16)
[2019-05-28 02:30] VITALS: BP 128/76
== END 2019-05-28 02:31 | disposition short-term general hospital (02) ==
LOC: ED 17:38
DX: Z87.891 Personal history of nicotine dependence (principal); Z66 Do not resuscitate; M86.8X8 Other osteomyelitis, other site; L89.620 Pressure ulcer of left heel, unstageable; L89.610 Pressure ulcer of right heel, unstageable; L89.329 Pressure ulcer of left buttock, unspecified stage; L89.319 Pressure ulcer of right buttock, unspecified stage; L89.150 Pressure ulcer of sacral region, unstageable; N30.00 Acute cystitis without hematuria
CPT/HCPCS: 36415; 51702; 72193; 73620; 80053; 81001; 83605; 83690; 85025; 85651; 86140; 87040; 87070; 87077; 87086; 87181; 87205; 96365; 96366; 96368; 96375; 96376; 99285; J2060; J2185; J3370; Q9967; 81003

== ENCOUNTER 2019-10-11 16:42 | Outpatient (CLI) | payer MEDICARE | END 2019-10-11 23:59 | disposition critical access hospital (66) | LOC: EMS 16:42 | PROVIDERS: ATTEND Surgery | DX: R23.9 Unspecified skin changes (principal); W19.XXXA Unspecified fall, initial encounter; Y92.003 Bedroom of unspecified non-institutional (private) residence as the place of occurrence of the external cause | CPT/HCPCS: A0425; A0429 ==

== ENCOUNTER 2019-10-11 17:10 | Emergency (ER) | payer MEDICARE ==
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
[2019-10-11 17:50] LABS: BASOPHILS % (AUTO) 0.2 %; EOSINOPHILS # (AUTO) 0.1 10^3/uL (0.0-0.7); EOSINOPHILS % (AUTO) 1.2 %; HGB - HEMOGLOBIN 11.6 g/dL (12.0-16.0); LYMPHOCYTES # (AUTO) 1.4 10^3/uL (1.5-3.5); LYMPHOCYTES % (AUTO) 16.6 %; MEAN CORPUSCULAR HEMOGLOBIN 27.5 pg (27.0-31.0); MEAN CORPUSCULAR HGB CONC 30.8 g/dL (32.0-36.0); MEAN CORPUSCULAR VOLUME 89.3 fL (81.0-99.0); MEAN PLATELET VOLUME 10.3 fL (7.9-10.8); MONOCYTES # (AUTO) 0.6 10^3/uL (0.0-1.0); NEUTROPHILS % (AUTO) 74.6 %; PLT - PLATELET COUNT 255 10^3/uL (130-450); RED BLOOD COUNT 4.22 10^6/uL (4.20-5.40); RED CELL DISTRIBUTION WIDTH 13.1 % (12.0-15.0); WHITE BLOOD COUNT 8.1 x10^3/uL (4.8-10.8)
[2019-10-11 18:07] LABS: ALBUMIN 3.5 g/dL (3.2-5.5); ALBUMIN/GLOBULIN RATIO 0.7 (1.0-2.2); BILIRUBIN,TOTAL 0.7 mg/dL (0.2-1.0); CALCIUM 9.1 mg/dL (8.5-10.3); CREATININE 0.5 mg/dL (0.4-1.0); CRP - C-REACTIVE PROTEIN 3.5 mg/dL (0-1.0); TOTAL PROTEIN 8.2 g/dL (6.7-8.2)
--- NOTE | 2019-10-11 18:33 | XRAY Report ---
Reason: fall, L hip pain Procedure Date: 10/11/2019 Accession Number: [id number] / [id number] Procedure: XR - Hip w/Pelvis 2-3V LT CPT Code: Final Report FULL RESULT: PROCEDURE: Hip w/Pelvis 2-3V LT INDICATIONS: fall, L hip pain TECHNIQUE: AP pelvis with lateral view(s) of the bilateral hip(s). COMPARISON: CT pelvis 05/27/2019. FINDINGS: Bones: Exam is somewhat limited by positioning. The bilateral acetabulum appear dysplastic. Heterotopic calcification adjacent to the left greater trochanter. No fracture or dislocation is identified. Pelvic ring appears intact. No suspicious bony lesions. Lumbar/sacral fixation hardware. Soft tissues: The visualized bowel gas pattern is normal. No suspicious soft tissue calcifications. IMPRESSION: Exam is limited by positioning. No fracture or dislocation is identified. -Consider further evaluation with CT pelvis if concern for occult fracture. Bilateral acetabulum are dysplastic. Reviewed by: Aleks Plummer MD on 10/11/2019 6:32 PM PDT Approved by: Aleks Plummer MD on 10/11/2019 6:32 PM PDT Station ID: [id number]
[2019-10-11] MEDS ORDERED: POTASSIUM CHLORIDE 20 MEQ TABLET PO STA (19:06)
[2019-10-11] MEDS ORDERED: oxyCODONE 5 MG TABLET PO STA (19:21)
[2019-10-11 20:27] VITALS: BP 145/80
== END 2019-10-11 20:30 | disposition home or self-care (01) ==
LOC: EDUNIT# → ED 17:10
DX: M25.552 Pain in left hip (principal); W05.0XXA Fall from non-moving wheelchair, initial encounter; Y92.003 Bedroom of unspecified non-institutional (private) residence as the place of occurrence of the external cause; R53.1 Weakness; E87.6 Hypokalemia; S31.819A Unspecified open wound of right buttock, initial encounter; S31.829A Unspecified open wound of left buttock, initial encounter; S91.302A Unspecified open wound, left foot, initial encounter; S91.301A Unspecified open wound, right foot, initial encounter; X58.XXXA Exposure to other specified factors, initial encounter; G82.20 Paraplegia, unspecified; S24.104S Unspecified injury at T11-T12 level of thoracic spinal cord, sequela; V89.2XXS Person injured in unspecified motor-vehicle accident, traffic, sequela; B19.20 Unspecified viral hepatitis C without hepatic coma; Z79.82 Long term (current) use of aspirin; Z87.891 Personal history of nicotine dependence; Z66 Do not resuscitate
CPT/HCPCS: 36415; 73502; 80053; 83605; 83690; 85025; 85651; 86140; 87040; 99284; A9270

== ENCOUNTER 2019-10-11 20:32 | Outpatient (CLI) | payer MEDICARE | END 2019-10-11 23:59 | disposition home or self-care (01) | LOC: EMS 20:32 | PROVIDERS: ATTEND Surgery | DX: G82.20 Paraplegia, unspecified (principal); E87.6 Hypokalemia | CPT/HCPCS: A0425; A0428 ==

== ENCOUNTER 2020-04-19 14:24 | Inpatient (IN) | payer MEDICARE ==
[2020-04-19] MEDS ORDERED: SODIUM CHLORIDE 0.9% IV STA (14:53)
[2020-04-19] MEDS ORDERED: PIPERACILLIN/TAZOBACTAM 3.375 GM in SODIUM CHLORIDE 0.9% MINIBAG 100 ML IV STA (14:53)
[2020-04-19] MEDS ORDERED: VANCOMYCIN INJ 1.25 GM in SODIUM CHLORIDE 0.9% 250 ML IV STA (14:53)
[2020-04-19] MEDS ORDERED: CLINDAMYCIN 900 MG/50 ML 50 ML IV STA (14:53)
[2020-04-19 15:19] LABS: BASOPHILS % (AUTO) 0.3 %; EOSINOPHILS % (AUTO) 0.2 %; HGB - HEMOGLOBIN 7.9 g/dL (12.0-16.0); MEAN CORPUSCULAR HEMOGLOBIN 23.2 pg (27.0-31.0); MEAN CORPUSCULAR HGB CONC 29.5 g/dL (32.0-36.0); MEAN CORPUSCULAR VOLUME 78.8 fL (81.0-99.0); MEAN PLATELET VOLUME 9.4 fL (7.9-10.8); MONOCYTES % (AUTO) 5.7 %; NEUTROPHILS % (AUTO) 90.3 %; PLT - PLATELET COUNT 367 10^3/uL (130-450); RED CELL DISTRIBUTION WIDTH 16.5 % (12.0-15.0); WHITE BLOOD COUNT 31.9 x10^3/uL (4.8-10.8)
[2020-04-19 15:24] LABS: ABNORMAL LYMPHS % (MANUAL) 0 %
[2020-04-19 15:30] LABS: ALBUMIN 2.5 g/dL (3.2-5.5); ALBUMIN/GLOBULIN RATIO 0.5 (1.0-2.2); BILIRUBIN,TOTAL 2.1 mg/dL (0.2-1.0); CALCIUM 8.2 mg/dL (8.5-10.3); CREATININE 0.5 mg/dL (0.4-1.0); TOTAL PROTEIN 7.3 g/dL (6.7-8.2)
[2020-04-19] MEDS ORDERED: POTASSIUM CHLORIDE 20 MEQ TABLET PO STA (15:44)
[2020-04-19 15:50] LABS: BAND NEUTROPHILS % (MANUAL) 10 %; DIFFERENTIAL COMMENT MANUAL DIFFERENTIAL; LYMPHOCYTES # (MANUAL) 0.3 10^3/uL (1.5-3.5); LYMPHOCYTES % (MANUAL) 1 %; MONOCYTES # (MANUAL) 1.3 10^3/uL (0.0-1.0); PLATELET ESTIMATE, MANUAL NORMAL (130-450,000) (NORMAL); PLATELET MORPHOLOGY NORMAL APPEARANCE (NORMAL); RBC MORPHOLOGY (MULTIPLE) 2+ HYPOCHROMASIA (NORMAL)
[2020-04-19] MEDS ORDERED: MORPHINE 10 MG/ML VIAL IVP STA (16:18)
[2020-04-19] MEDS ORDERED: ONDANSETRON 4 MG/2 ML VIAL IVP STA (16:34)
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
[2020-04-19] MEDS ORDERED: IOVERSOL 320 100 ML VIAL IVP ONE ×2 (17:59→18:44)
--- NOTE | 2020-04-19 18:04 | XRAY Report ---
PROCEDURE: Chest 1 View X-Ray INDICATIONS: tachypnea, sepsis TECHNIQUE: One view of the chest was acquired. COMPARISON: Chest xray 02/23/19 FINDINGS: Surgical changes and devices: Thoracolumbar fixation rods. Lungs and pleura: No pleural effusions or pneumothorax. Lungs are clear. Mediastinum: Mediastinal contours appear normal. Heart size is mildly prominent. Bones and chest wall: No suspicious bony lesions. Overlying soft tissues appear unremarkable. IMPRESSION: 1. No acute pulmonary process. Reviewed by: Annelise Sargent MD on 04/19/2020 6:03 PM [facility] Approved by: Annelise Sargent MD on 04/19/2020 6:03 PM [facility] Station ID: [id number]
[2020-04-19] MEDS ORDERED: POTASSIUM CHLORIDE 20 MEQ/15 ML UDC PO STA (18:12)
[2020-04-19] MEDS ORDERED: ACETAMINOPHEN 325 MG TABLET PO STA (18:29)
--- NOTE | 2020-04-19 19:08 | CT Report ---
PROCEDURE: Abdomen/Pelvis W INDICATIONS: sepsis CONTRAST: IV CONTRAST: Optiray 320 ml: 100 PO CONTRAST: *NO PO CONTRAST TECHNIQUE: After the administration of IV contrast, 5 mm thick sections acquired from the diaphragms to the symp hysis. 5 mm thick coronal and sagittal reformats were acquired. For radiation dose reduction, the f ollowing was used: automated exposure control, adjustment of mA and/or kV according to patient size. COMPARISON: CT abdomen pelvis 02/19/2019. CT pelvis 05/27/2019 FINDINGS: Image quality: There is limited visualization of portions of the pelvis secondary to artifact from s radha fusion hardware. ABDOMEN: Lung bases: Lung bases are clear. Heart size is normal. Solid organs: Liver and spleen are normal in size and enhancement. Gallbladder demonstrates a depen dent calcification without wall thickening Biliary system is non dilated. Pancreas enhances normall y. No adrenal nodules. Kidneys demonstrate normal size and enhancement, without hydronephrosis. Peritoneum and bowel: Bowel loops demonstrate normal wall thickness and caliber. No free fluid or a ir. Nodes and vessels: No retroperitoneal or mesenteric adenopathy by size criteria. Aorta and inferior vena cava are normal in size. Miscellaneous: No ventral hernias. PELVIS: Genitourinary: Bladder wall thickness is normal. Miscellaneous: No inguinal hernias or adenopathy. There is diffuse soft tissue thickening within th e gluteal region bilaterally. Areas of air and soft tissue defect are identified. Is noted that a sim ilar appearance was present on the 05/27/2019 exam, although predominantly in the central and left asp ect. These regions have become more prominent as well as interval extension to the right gluteal leigh on. Bones: Dysplastic appearance of the pelvis is present. There is erosion and sclerosis of the initial tuberosities and ischio pubic rami. This has not significantly changed compared to prior exam. No kai tebral body compression fractures. IMPRESSION: 1. Persistent and progressive area of gluteal decubital soft tissue wounds with areas of skin defect as well as soft tissue air. Overall appearance remains most consistent with infection with likely are as of necrosis giving presence of air particularly within the right gluteal region. No defined fluid collection is identified. 2. Chronic changes of osteomyelitis within the initial tuberosities and rami without appreciable prog ression. Reviewed by: Annelise Sargent MD on 04/19/2020 7:06 PM PST Approved by: Annelise Sargent MD on 04/19/2020 7:06 PM PST Station ID: [id number]
[2020-04-19 19:38] LABS: C. PNEUMONIAE- RESP PCR PANEL NOT DETECTED
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
[2020-04-19] MEDS ORDERED: metroNIDAZOLE 500 MG/100 ML 500 MG/100 ML BAG IV SCH (21:00)
[2020-04-19] MEDS ORDERED: VANCOMYCIN INJ 1 GM in SODIUM CHLORIDE 0.9% 250 ML IV SCH (21:00)
[2020-04-19] MEDS ORDERED: SODIUM CHLORIDE 0.9% 1,000 ML IV SCH (21:00)
[2020-04-19] MEDS: CEFEPIME 2 GM in SODIUM CHLORIDE 0.9% MINIBAG 100 ML IV SCH (22:21)
[2020-04-19] MEDS: HEPARIN 5,000 UNIT/ML VIAL SUBQ SCH (22:27)
[2020-04-19] MEDS: SODIUM CHLORIDE FLUSH 0.9% 10 ML SYRINGE IVP PRN (22:32)
[2020-04-19] MEDS ORDERED: SODIUM CHLORIDE 0.9% 500 ML IV ONE (23:45)
[2020-04-19] MEDS ORDERED: SODIUM CHLORIDE 0.9% 1,000 ML IV ONE (23:57)
[2020-04-20] MEDS: HYDROcod/ACETAM 5/325 MG TABLET PO PRN ×5 (00:21→20:49)
[2020-04-20] MEDS ORDERED: VANCOMYCIN INJ 1 GM in SODIUM CHLORIDE 0.9% 250 ML IV SCH (03:00)
[2020-04-20 05:04] LABS: BASOPHILS % (AUTO) 0.2 %; EOSINOPHILS % (AUTO) 0.1 %; LYMPHOCYTES # (AUTO) 1.7 10^3/uL (1.5-3.5); LYMPHOCYTES % (AUTO) 9.4 %; MEAN CORPUSCULAR HEMOGLOBIN 23.7 pg (27.0-31.0); MEAN CORPUSCULAR VOLUME 81.8 fL (81.0-99.0); MEAN PLATELET VOLUME 9.3 fL (7.9-10.8); MONOCYTES % (AUTO) 5.6 %; NEUTROPHILS # (AUTO) 14.8 10^3/uL (1.5-6.6); PLT - PLATELET COUNT 262 10^3/uL (130-450); RED BLOOD COUNT 2.74 10^6/uL (4.20-5.40); RED CELL DISTRIBUTION WIDTH 16.5 % (12.0-15.0); WHITE BLOOD COUNT 17.5 x10^3/uL (4.8-10.8)
[2020-04-20 05:11] LABS: CALCIUM 7.3 mg/dL (8.5-10.3); CREATININE 0.4 mg/dL (0.4-1.0)
[2020-04-20 05:18] LABS: HGB - HEMOGLOBIN 6.5 g/dL (12.0-16.0)
[2020-04-20] MEDS: LEVOTHYROXINE 25 MCG TABLET PO SCH (06:15)
[2020-04-20] MEDS: SODIUM CHLORIDE 0.9% 1,000 ML IV SCH ×2 (06:22→15:57)
[2020-04-20] MEDS: metroNIDAZOLE 500 MG/100 ML 500 MG/100 ML BAG IV SCH ×2 (07:45→15:57)
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
[2020-04-20] MEDS ORDERED: POTASSIUM CHLORIDE 20 MEQ/15 ML UDC PO SCH (08:00)
[2020-04-20] MEDS: CEFEPIME 2 GM in SODIUM CHLORIDE 0.9% MINIBAG 100 ML IV SCH ×2 (08:56→20:49)
[2020-04-20] MEDS: HEPARIN 5,000 UNIT/ML VIAL SUBQ SCH ×2 (08:56→20:47)
--- NOTE | 2020-04-20 08:56 | PHARMACY PROGRESS NOTE ---
- Therapy Status Vancomycin regimen day #: 2 Therapy status: Awaiting steady state Basis for treatment: Empirical Treatment indication: Sepsis/osteomyelitis Trough goal: 15-20 Concurrent antibiotics: Cefepime and metronidazole - ROGE Risk Risk level for Acute Kidney Injury: Moderate Acute Kidney Injury risk factors: IV contrast within 72 hrs, Goal trough >15, Chronic baseline hypertension, Sepsis - Monitoring and Recommendation Clinical response to treatment: I&O Previous 24 hours 04/18/20 04/19/20 04/20/20 23:59 23:59 23:59 Intake Total 2690 3450.000 Output Total 700 750 Balance 1989 2700.000 Lab Results 04/20/20 04/19/20 04:55 15:00 BUN 9 11 Creatinine 0.4 0.5 Estimated GFR (MDRD) 161 125 Cultures 04/19/20 15:00 Blood Blood Culture - Preliminary 04/19/20 15:10 Blood Blood Culture - Preliminary Monitoring plan: Daily serum creatinine, Suggest ongoing fluid replacement Next trough due prior to maintenance dose #: 5 Next trough due (date/time): 04/21/2020 @ 1000 Areas for additional monitoring: IV to PO when appropriate, Therapy de- escalation based on culture results Pharmacy recommendation: Continue current regime
[2020-04-20] MEDS: ethyl alcohoL 62% SWAB AMPULE NAS SCH ×2 (08:57→20:48)
[2020-04-20 10:19] LABS: BILIRUBIN,URINE NEGATIVE (NEGATIVE); GLUCOSE, URINE (UA) NEGATIVE (NEGATIVE); KETONES,URINE (UA) NEGATIVE (NEGATIVE); LEUKOCYTE ESTERASE, URINE TRACE (NEGATIVE); NITRITE,URINE NEGATIVE (NEGATIVE); OCCULT BLOOD,URINE NEGATIVE (NEGATIVE); PROTEIN,URINE NEGATIVE (NEGATIVE); UROBILINOGEN,URINE 1 (NORMAL) E.U./dL (NORMAL)
[2020-04-20] MEDS: VANCOMYCIN INJ 1 GM in SODIUM CHLORIDE 0.9% 250 ML IV SCH ×2 (10:19→18:43)
[2020-04-20] MEDS: SODIUM CHLORIDE FLUSH 0.9% 10 ML SYRINGE IVP SCH ×3 (10:19→15:57)
[2020-04-20 10:26] LABS: CLARITY,URINE CLEAR (CLEAR)
[2020-04-20 10:33] LABS: BACTERIA,URINE Moderate /HPF (None Seen); RBC,URINE 0-5 /HPF (0-5); SQUAMOUS EPITHELIAL CELL,UR FEW Squamous (<= Few)
[2020-04-20 10:34] LABS: WBC CLUMPS,URINE PRESENT
--- NOTE | 2020-04-20 11:23 | PHARMACY PROGRESS NOTE ---
- Best Possible Medication History Admit Date and Time: 04/19/202001 Processed by: Pharmacy Medication History completed: Yes Patient Interview: Completed Secondary Source(s): Physician records, Pharmacy records, Insurance records As the person ultimately responsible for medication therapy, providers are able to order a medication from an existing home medication list in [facility] via the "Reconcile Routine" prior to Confirmation of that medication by business support administrator. Such practice is discouraged except when the physician, in their clinical judgment, deems that a medical need exists for a medication without regard to previous use.
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
[2020-04-20] MEDS ORDERED: diphenhydrAMINE 25 MG CAPSULE PO PRN (22:01)
[2020-04-21] MEDS: metroNIDAZOLE 500 MG/100 ML 500 MG/100 ML BAG IV SCH ×3 (00:47→15:50)
[2020-04-21] MEDS: SODIUM CHLORIDE FLUSH 0.9% 10 ML SYRINGE IVP SCH ×3 (00:47→15:58)
[2020-04-21] MEDS ORDERED: SODIUM CHLORIDE 0.9% 1,000 ML IV SCH (01:38)
[2020-04-21] MEDS: VANCOMYCIN INJ 1 GM in SODIUM CHLORIDE 0.9% 250 ML IV SCH ×2 (02:41→17:01)
[2020-04-21] MEDS: HYDROcod/ACETAM 5/325 MG TABLET PO PRN ×4 (02:41→19:37)
[2020-04-21 04:42] LABS: BASOPHILS % (AUTO) 0.2 %; EOSINOPHILS # (AUTO) 0.1 10^3/uL (0.0-0.7); EOSINOPHILS % (AUTO) 0.9 %; HGB - HEMOGLOBIN 7.8 g/dL (12.0-16.0); LYMPHOCYTES # (AUTO) 1.1 10^3/uL (1.5-3.5); LYMPHOCYTES % (AUTO) 9.6 %; MEAN CORPUSCULAR HEMOGLOBIN 24.2 pg (27.0-31.0); MEAN CORPUSCULAR HGB CONC 29.2 g/dL (32.0-36.0); MEAN CORPUSCULAR VOLUME 82.9 fL (81.0-99.0); MEAN PLATELET VOLUME 9.3 fL (7.9-10.8); MONOCYTES # (AUTO) 0.6 10^3/uL (0.0-1.0); MONOCYTES % (AUTO) 5.5 %; NEUTROPHILS # (AUTO) 9.2 10^3/uL (1.5-6.6); NEUTROPHILS % (AUTO) 83.2 %; PLT - PLATELET COUNT 285 10^3/uL (130-450); RED BLOOD COUNT 3.22 10^6/uL (4.20-5.40); RED CELL DISTRIBUTION WIDTH 16.9 % (12.0-15.0)
[2020-04-21 05:02] LABS: CALCIUM 7.5 mg/dL (8.5-10.3); CREATININE 0.3 mg/dL (0.4-1.0)
[2020-04-21] MEDS: LEVOTHYROXINE 25 MCG TABLET PO SCH (06:15)
[2020-04-21] MEDS: ONDANSETRON 4 MG/2 ML VIAL IVP PRN ×2 (07:57→15:46)
[2020-04-21] MEDS: HEPARIN 5,000 UNIT/ML VIAL SUBQ SCH ×2 (07:57→21:06)
[2020-04-21] MEDS: ethyl alcohoL 62% SWAB AMPULE NAS SCH ×2 (07:57→21:05)
--- NOTE | 2020-04-21 08:11 | PROVIDER PROGRESS NOTE ---
Assessment/Plan - Problem List (1) Gram-positive bacteremia Assessment/Plan: 2 of 2 bottles are growing gram pos cocci, drawn at admission. Obtain another blood cx today, to assure no further growth. Continue antibiotics. Await identification and sensitivities to tailor treatment. Follow CBC daily. She has received a lot of fluid for resuscitation because of septic picture. She is edematous. We will give 1 dose of p.o. Lasix to help diurese her extra fluid. (2) Sacral decubitus ulcer Qualifiers: Pressure injury stage: stage 3 Qualified Code(s): L89.153 - Pressure ulcer of sacral region, stage 3 Assessment/Plan: Awaiting Gen Surg and Wound service consults. Continue antibx Continue pain meds. Continue Stephens, to assist healing in this area. (3) Decubitus ulcer, heel Qualifiers: Pressure injury stage: unstageable Laterality: unspecified laterality Qualified Code(s): L89.600 - Pressure ulcer of unspecified heel, unstageable Assessment/Plan: Awaiting Gen Surg and Wound service consults. Continue antibiotics. Continue elevation. (4) Chronic osteomyelitis, other specified site Assessment/Plan: As per Hx and seen on imaging at admission. (5) Anemia Qualifiers: Anemia type: unspecified type Qualified Code(s): D64.9 - Anemia, unspecified Assessment/Plan: She needed 1U of PRBCs transfused yesterday, when Hgb was 6.5. Today Hgb 7.8. Follow CBC daily. (6) Paraplegia following spinal cord injury Assessment/Plan: As per Hx. (7) Neurogenic bladder Assessment/Plan: As per Hx. Now requiring a Stephens. (8) Chronic pain Qualifiers: Chronic pain type: chronic pain syndrome Qualified Code(s): G89.4 - Chronic pain syndrome Assessment/Plan: She was able to describe that she does not like to use morphine because she does not like how it makes her feel "high". She takes 2 [place] at a time and these changes were made. (9) Hypothyroidism Assessment/Plan: TSH normal. Continue her home dose of Synthroid. (10) Anxiety Assessment/Plan: She was reporting to the palliative adult care provider that she uses cannabis to manage her anxiety, does not want tablets like SSRIs. 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 (12) Sepsis Assessment/Plan: Resolved. No fever for 24 hours, BP and HR normalized and WBC decreasing. - Current Meds Current Meds: Current Medications Generic Name Dose Route Start Last Admin Trade Name Freq PRN Reason Stop Dose Admin Hydrocodone Bitart/Acetaminophen 2 tab 04/20/20 18:28 04/21/20 07:58 Hydrocod/Acetam 5/325 Mg Tablet PO 2 tab Q4HR PRN Administration PAIN Alcohol 1 amp 04/20/20 09:00 04/21/20 07:57 Ethyl Alcohol 62% Swab Ampule CONNER 1 amp BID VANE Administration Heparin Sodium (Porcine) 5,000 unit 04/19/20 21:00 04/21/20 07:57 Heparin 5,000 Unit/Ml Vial SUBQ 5,000 unit BID VANE Administration Cefepime HCl 2 gm/ Sodium 100 mls @ 200 mls/hr 04/19/20 21:00 04/20/20 21:20 Chloride IV Infused BID VANE Infusion Metronidazole 500 mg in 100 mls @ 100 mls/hr 04/20/20 08:00 04/21/20 07:57 Flagyl 500 Mg/100 Ml IV 100 mls/hr Q8H VANE Administration Vancomycin HCl 1 gm/ Sodium 250 mls @ 167 mls/hr 04/20/20 11:00 04/21/20 04:14 Chloride IV Infused Q8H VANE Infusion Sodium Chloride 1,000 mls @ 75 mls/hr 04/21/20 01:38 04/21/20 02:41 Normal Saline 0.9% IV 04/21/20 13:00 75 mls/hr .[id number] VANE Administration Levothyroxine Sodium 50 mcg 04/20/20 07:00 04/21/20 06:15 Levothyroxine 25 Mcg Tablet PO 50 mcg QDAC VANE Administration Ondansetron HCl 4 mg 04/19/20 20:02 04/21/20 07:57 Ondansetron 4 Mg/2 Ml Vial IVP 4 mg Q6HR PRN Administration Nausea / Vomiting Sodium Chloride 10 ml 04/19/20 20:02 04/19/20 22:32 Sodium Chloride Flush 0.9% 10 Ml Syringe IVP 10 ml PRN PRN Administration NEEDED PER PROVIDER ORDERS Sodium Chloride 10 ml 04/20/20 01:00 04/21/20 07:57 Sodium Chloride Flush 0.9% 10 Ml Syringe IVP 10 ml [id number] [facility] Administration - Lab Result Fish Bone Diagrams: 04/21/20 04:35 04/21/20 04:35 - Additional Planning My Orders: My Active Orders 04/20/20 18:28 HYDROcod/ACETAM 5/325 [[place] 5/325] 2 tab PO Q4HR PRN 04/21/20 CULTURE, BLOOD #1 [RM] Urgent Subjective - Subjective Patient Reports: Shortness of Breath (She intermittently starts breathing quickly and with deeper breaths and then speaks normally. Her oxygen saturation is normal on room) Objective Vital Signs: Vital Signs - 24 hr 04/20/20 04/20/20 04/20/20 10:45 11:21 12:08 Temperature 36.5 C 36.9 C 37 C Heart Rate 84 89 Heart Rate [ Brachial] Heart Rate [ 92 Radial] Respiratory 17 18 22 Rate Blood Pressure 111/51 L 111/53 L Blood Pressure [Left Brachial artery] Blood Pressure 90/59 L [Right Brachial artery] O2 Saturation 100 04/20/20 04/20/20 04/20/20 14:03 16:00 21:01 Temperature 36.8 C 37.2 C 37.5 C Heart Rate 87 Heart Rate [ 88 91 Brachial] Heart Rate [ Radial] Respiratory 20 24 20 Rate Blood Pressure 111/58 L Blood Pressure 118/60 [Left Brachial artery] Blood Pressure 124/52 L [Right Brachial artery] O2 Saturation 97 98 04/21/20 04/21/20 00:00 06:11 Temperature 36.5 C 36.7 C Heart Rate Heart Rate [ 91 76 Brachial] Heart Rate [ Radial] Respiratory 20 20 Rate Blood Pressure Blood Pressure 119/49 L [Left Brachial artery] Blood Pressure 105/61 [Right Brachial artery] O2 Saturation 97 97 Oxygen O2 Source Room air I&O (Last 24 Hrs): Intake and Output Totals x24h 04/19/20 04/20/20 04/21/20 23:59 23:59 23:59 Intake Total 2690 7355.000 1400 Output Total 700 1475 800 Balance 1989 5880.000 600 General: Alert, Oriented x3 HEENT: Mucous membr. moist/pink, Other (Pale) Neck: Supple, No JVD Neuro: Other (Paraplegia) Cardiovascular: Regular rate, No murmurs Respiratory: No respiratory distress, Breath sounds nml (anteriorly) Abdomen: Soft Genitourinary: Other (Ulcers as on photos, Stephens in place) Extremities: Other (deep L heel ulcer, 1+ hand edema) - Results Results: Laboratory Results WBC 11.0 x10^3/uL (4.8-10.8) H 04/21/20 04:35 RBC 3.22 10^6/uL (4.20-5.40) L 04/21/20 04:35 Hgb 7.8 g/dL (12.0-16.0) L 04/21/20 04:35 Hct 26.7 % (37.0-47.0) L 04/21/20 04:35 MCV 82.9 fL (81.0-99.0) 04/21/20 04:35 MCH 24.2 pg (27.0-31.0) L 04/21/20 04:35 MCHC 29.2 g/dL (32.0-36.0) L 04/21/20 04:35 RDW 16.9 % (12.0-15.0) H 04/21/20 04:35 Plt Count 285 10^3/uL (130-450) 04/21/20 04:35 MPV 9.3 fL (7.9-10.8) 04/21/20 04:35 Neut # (Auto) 9.2 10^3/uL (1.5-6.6) H 04/21/20 04:35 Lymph # (Auto) 1.1 10^3/uL (1.5-3.5) L 04/21/20 04:35 [place] # (Auto) 0.6 10^3/uL (0.0-1.0) 04/21/20 04:35 Eos # (Auto) 0.1 10^3/uL (0.0-0.7) 04/21/20 04:35 Baso # (Auto) 0.0 10^3/uL (0.0-0.1) 04/21/20 04:35 Absolute Nucleated RBC 0.00 x10^3/uL 04/21/20 04:35 Total Counted 100 04/19/20 15:00 Band Neuts % (Manual) 10 % (0-10) 04/19/20 15:00 Abnorm Lymph % (Manual) 0 % 04/19/20 15:00 Nucleated RBC % 0.0 /100WBC 04/21/20 04:35 Neutrophils # (Manual) 30.3 10^3/uL (1.5-6.6) H 04/19/20 15:00 Lymphocytes # (Manual) 0.3 10^3/uL (1.5-3.5) L 04/19/20 15:00 Monocytes # (Manual) 1.3 10^3/uL (0.0-1.0) H 04/19/20 15:00 Eosinophils # (Manual) 0.0 10^3/uL (0-0.7) 04/19/20 15:00 Basophils # (Manual) 0.0 10^3/uL (0-0.1) 04/19/20 15:00 Differential Comment MANUAL DIFFERENTIAL 04/19/20 15:00 Platelet Estimate NORMAL (130-450,000) (NORMAL) 04/19/20 15:00 Platelet Morphology NORMAL APPEARANCE (NORMAL) 04/19/20 15:00 RBC Morph Micro Appear 2+ HYPOCHROMASIA (NORMAL) 04/19/20 15:00 Sodium 141 mmol/L (135-145) 04/21/20 04:35 Potassium 3.4 mmol/L (3.5-5.0) L 04/21/20 04:35 Chloride 110 mmol/L (101-111) 04/21/20 04:35 Carbon Dioxide 22 mmol/L (21-32) 04/21/20 04:35 Anion Gap 9.0 (6-13) 04/21/20 04:35 BUN 8 mg/dL (6-20) 04/21/20 04:35 Creatinine 0.3 mg/dL (0.4-1.0) L 04/21/20 04:35 Estimated GFR (MDRD) 225 (>89) 04/21/20 04:35 Glucose 88 mg/dL (70-100) 04/21/20 04:35 Lactic Acid 1.3 mmol/L (0.5-2.2) 04/19/20 15:00 Calcium 7.5 mg/dL (8.5-10.3) L 04/21/20 04:35 Total Bilirubin 2.1 mg/dL (0.2-1.0) H 04/19/20 15:00 AST 24 IU/L (10-42) 04/19/20 15:00 ALT 26 IU/L (10-60) 04/19/20 15:00 Alkaline Phosphatase 62 IU/L (42-121) 04/19/20 15:00 Total Protein 7.3 g/dL (6.7-8.2) 04/19/20 15:00 Albumin 2.5 g/dL (3.2-5.5) L 04/19/20 15:00 Globulin 4.8 g/dL (2.1-4.2) H 04/19/20 15:00 Albumin/Globulin Ratio 0.5 (1.0-2.2) L 04/19/20 15:00 TSH 1.71 uIU/mL (0.34-5.60) 04/20/20 04:55 Cortisol 12.2 ug/dL 04/20/20 04:55 Urine Color YELLOW 04/19/20 09:15 Urine Clarity CLEAR (CLEAR) 04/19/20 09:15 Urine pH 5.0 PH (5.0-7.5) 04/19/20 09:15 Ur Specific [place] 1.010 (1.002-1.030) 04/19/20 09:15 Urine Protein NEGATIVE mg/dL (NEGATIVE) 04/19/20 09:15 Urine Glucose (UA) NEGATIVE mg/dL (NEGATIVE) 04/19/20 09:15 Urine Ketones NEGATIVE mg/dL (NEGATIVE) 04/19/20 09:15 Urine Occult Blood NEGATIVE (NEGATIVE) 04/19/20 09:15 Urine Nitrite NEGATIVE (NEGATIVE) 04/19/20 09:15 Urine Bilirubin NEGATIVE (NEGATIVE) 04/19/20 09:15 Urine Urobilinogen 1 (NORMAL) E.U./dL (NORMAL) 04/19/20 09:15 Ur Leukocyte Esterase TRACE (NEGATIVE) H 04/19/20 09:15 Urine RBC 0-5 /HPF (0-5) 04/19/20 09:15 Urine WBC 6-10 /HPF (0-5) H 04/19/20 09:15 Urine WBC Clumps PRESENT 04/19/20 09:15 Ur Squamous Epith Cells FEW Squamous (<= Few) 04/19/20 09:15 Urine Bacteria Moderate /HPF (None Seen) H 12/15/20 09:15 Urine Culture Comments INDICATED 04/19/20 09:15 Nasal Adenovirus (PCR) NOT DETECTED 04/19/20 18:40 Nasal B. parapertussis DNA (PCR) NOT DETECTED 04/19/20 18:40 Nasal Coronavir 229E PCR NOT DETECTED 04/19/20 18:40 Nasal Coronavir HKU1 PCR NOT DETECTED 04/19/20 18:40 Nasal Coronavir NL63 PCR NOT DETECTED 04/19/20 18:40 Nasal Coronavir OC43 PCR NOT DETECTED 04/19/20 18:40 Nasal Enterovir/Rhinovir PCR NOT DETECTED 04/19/20 18:40 Nasal Influenza B PCR NOT DETECTED 04/19/20 18:40 Nasal Influenza A PCR NOT DETECTED 04/19/20 18:40 Nasal Parainfluen 1 PCR NOT DETECTED 04/19/20 18:40 Nasal Parainfluen 2 PCR NOT DETECTED 04/19/20 18:40 Nasal Parainfluen 3 PCR NOT DETECTED 04/19/20 18:40 Nasal Parainfluen 4 PCR NOT DETECTED 04/19/20 18:40 Nasal RSV (PCR) NOT DETECTED 04/19/20 18:40 Nasal Screen MRSA (PCR) POSITIVE (NEGATIVE) A* 04/19/20 22:40 Nasal B.pertussis DNA PCR NOT DETECTED 04/19/20 18:40 Nasal C.pneumoniae (PCR) NOT DETECTED 04/19/20 18:40 [place] Human Metapneumo PCR NOT DETECTED 04/19/20 18:40 Nasal M.pneumoniae (PCR) NOT DETECTED 04/19/20 18:40 Nasal SARS-CoV-2 (PCR) NOT DETECTED 04/19/20 18:40 Blood Type A NEGATIVE 04/20/20 06:15 Antibody Screen NEGATIVE 04/20/20 06:15 Crossmatch See Detail 04/20/20 06:15 - Procedures Procedures: Procedures EXTRACTION OF BUTTOCK SKIN, EXTERNAL APPROACH (02/18/19) EXTRACTION OF L UP LEG SUBCU/FASCIA, PERC APPROACH (02/18/19) EXTRACTION OF LEFT FOOT SKIN, EXTERNAL APPROACH (02/18/19) EXTRACTION OF RIGHT FOOT SKIN, EXTERNAL APPROACH (02/18/19) INSERTION OF INFUSION DEV INTO SUP VENA CAVA, PERC APPROACH (02/18/19) Sepsis Event Note (H) - Evaluation Current Stage of Sepsis: Sepsis Possible source of Sepsis: positive: Skin/soft tissue - Sepsis Criteria Sepsis Criteria: Recorded Heart Rate greater than 90 bpm, Recorded Respiratory Rate greater than 20, WBC count greater than 10% bands, SBP less than 90 mmHg
[2020-04-21] MEDS: CEFEPIME 2 GM in SODIUM CHLORIDE 0.9% MINIBAG 100 ML IV SCH ×2 (10:00→21:24)
[2020-04-21 10:50] LABS: VANCOMYCIN,TROUGH 27.2 ug/mL (10.0-20.0)
[2020-04-21] MEDS ORDERED: FUROSEMIDE 20 MG TABLET PO STA (14:07)
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
--- NOTE | 2020-04-21 16:01 | OPERATIVE REPORT ---
Operative Report - General Admit Date: 04/19/20 Procedure Date: 04/21/20 Planned Procedure: Bedside debridement of bilateral heel ulcers Pre-Op Diagnosis: Bilateral heel ulcers. Stage I on the right and unstageable on the left Procedure Performed: Sharp debridement of bilateral heel ulcers Post Op Diagnosis: Stage IV bilateral heel ulcers with exposed calcaneus - Procedure Note Primary Surgeon: Cristian Estimated Blood Loss (mL): 5 Indications: Necrotic right heel ulcer and unstageable left heel ulcer Findings: Bilateral stage IV pressure ulcers Complications: None apparent - Other Other Information/Narrative: After obtaining informed consent, the patient's legs were placed on pillows in her bed revealing the calcaneus of each foot. Both areas were prepped and draped in the standard surgical fashion. Using a 15 blade scalpel, I began on the right side by examining the wound. It measured 5 x 5 cm in greatest dimension. At the superior aspect of the wound there was khanna devitalized tissue that did not have any foul odor. This area was sharply debrided in a full-thickness fashion to include all devitalized epidermis dermis subcutaneous tissue and periosteum down to the calcaneus. Total area of debridement was approximately 1 x 2 cm. The wound was checked for hemostasis. Direct pressure was held until all bleeding had stopped. A Mepilex dressing was applied. I now turned my attention to the left side. A 4 x 3 and half centimeter dark eschar was present over the calcaneus. I began by peeling the external portion off and it revealed devitalized and necrotic tissue beneath the continued sharp debridement with a 15 blade scalpel, iris scissors, and Adson forceps removing only devitalized tissue. The area of necrosis extended in a full-thickness fashion through all layers of the skin and subcutaneous tissue down to the calcaneus. Final debridement revealed exposed calcaneus in the region of 4 x 4 cm with surrounding viable tissue. The wound was checked for hemostasis. Direct pressure was held to provide hemostasis. A Mepilex dressing was applied. All sponge needle instrument counts were correct at the conclusion of the case. The patient tolerated procedure very well.
[2020-04-22] MEDS: HYDROcod/ACETAM 5/325 MG TABLET PO PRN ×5 (00:05→20:38)
[2020-04-22] MEDS: ONDANSETRON 4 MG/2 ML VIAL IVP PRN ×2 (00:14→10:13)
[2020-04-22] MEDS: SODIUM CHLORIDE FLUSH 0.9% 10 ML SYRINGE IVP SCH ×4 (00:14→15:55)
[2020-04-22] MEDS: metroNIDAZOLE 500 MG/100 ML 500 MG/100 ML BAG IV SCH ×3 (00:43→15:55)
[2020-04-22] MEDS: VANCOMYCIN INJ 1 GM in SODIUM CHLORIDE 0.9% 250 ML IV SCH ×2 (05:03→17:14)
[2020-04-22 05:43] LABS: BASOPHILS % (AUTO) 0.2 %; EOSINOPHILS # (AUTO) 0.2 10^3/uL (0.0-0.7); HGB - HEMOGLOBIN 7.8 g/dL (12.0-16.0); LYMPHOCYTES # (AUTO) 1.5 10^3/uL (1.5-3.5); LYMPHOCYTES % (AUTO) 18.4 %; MEAN CORPUSCULAR HEMOGLOBIN 24.1 pg (27.0-31.0); MEAN CORPUSCULAR HGB CONC 29.2 g/dL (32.0-36.0); MEAN CORPUSCULAR VOLUME 82.7 fL (81.0-99.0); MEAN PLATELET VOLUME 9.1 fL (7.9-10.8); MONOCYTES # (AUTO) 0.5 10^3/uL (0.0-1.0); MONOCYTES % (AUTO) 6.1 %; NEUTROPHILS # (AUTO) 5.7 10^3/uL (1.5-6.6); NEUTROPHILS % (AUTO) 71.4 %; PLT - PLATELET COUNT 324 10^3/uL (130-450); RED BLOOD COUNT 3.23 10^6/uL (4.20-5.40); RED CELL DISTRIBUTION WIDTH 17.3 % (12.0-15.0)
[2020-04-22] MEDS: LEVOTHYROXINE 25 MCG TABLET PO SCH (05:59)
[2020-04-22 06:22] LABS: FOLATE 13.6 ng/mL (5.90 - >24.8)
[2020-04-22 06:30] LABS: BUN - BLOOD UREA NITROGEN 12 mg/dL (6-20); CALCIUM 7.4 mg/dL (8.5-10.3); CARBON DIOXIDE - CO2 24 mmol/L (21-32); CHLORIDE 109 mmol/L (101-111); CREATININE 0.4 mg/dL (0.4-1.0); GLUCOSE 88 mg/dL (70-100); IRON < 6 ug/dL (28-170); SODIUM 140 mmol/L (135-145); TOTAL IRON BINDING CAPACITY 168 ug/dL (250-450); TRANSFERRIN 120 mg/dL (192-382)
[2020-04-22] MEDS ORDERED: BENZONATATE 100 MG CAPSULE PO PRN (06:57)
[2020-04-22] MEDS ORDERED: POTASSIUM CHLORIDE 20 MEQ TABLET PO ONE (07:30)
[2020-04-22] MEDS: ASCORBIC ACID CHEW 500 MG TABLET PO SCH ×2 (08:23→08:29)
[2020-04-22] MEDS: DOCUSATE SODIUM 250 MG CAPSULE PO SCH (08:23)
[2020-04-22] MEDS: MULTIVITAMIN W/MINERALS TABLET PO SCH (08:24)
[2020-04-22] MEDS: ethyl alcohoL 62% SWAB AMPULE NAS SCH ×2 (08:31→20:00)
[2020-04-22] MEDS: HEPARIN 5,000 UNIT/ML VIAL SUBQ SCH ×2 (08:33→20:00)
[2020-04-22] MEDS: polyethylene glycoL 3350 17 GM PACKET PO SCH (08:42)
[2020-04-22] MEDS: FERROUS GLUCONATE 324 MG TABLET PO SCH (08:45)
[2020-04-22] MEDS: CEFEPIME 2 GM in SODIUM CHLORIDE 0.9% MINIBAG 100 ML IV SCH ×2 (09:30→19:59)
--- NOTE | 2020-04-22 10:44 | PROVIDER PROGRESS NOTE ---
Progress Note Karian is not in good spirits today. She reports she is nauseated and "feels ignored". Left heel bled last evening after debridement. Dressed with surgifoam and dry gauze and stopped. Today the dressing is dry. Surgifoam is removed and replace with hydrofiber and clean gauze. Recommend changing both heel dressing with hydrofiber every 3 days.
[2020-04-22] MEDS ORDERED: LORazepam 2 MG/ML VIAL IVP ONE (11:56)
--- NOTE | 2020-04-22 13:15 | XRAY Report ---
PROCEDURE: Chest for Line Placement INDICATIONS: L PICC TECHNIQUE: One view of the chest was acquired. COMPARISON: 04/19/2020 FINDINGS: Surgical changes and devices: Partially visualized lower lumbar spine fixation hardware. PICC line pr ojects to the left axilla. Lungs and pleura: No pleural effusions or pneumothorax. Patchy opacities noted in the left lung base . Mediastinum: Mediastinal contours appear normal. Heart is enlarged. Bones and chest wall: No suspicious bony lesions. Overlying soft tissues appear unremarkable. IMPRESSION: 1. PICC line tip projects over the left axilla and should be advanced approximately 25-28 cm to reach the distal SVC. 2. New patchy opacities in the left lung base which could represent atelectasis, aspiration or pneumo michael. Reviewed by: Donna Polanco MD, PhD on 04/22/2020 1:14 PM PST Approved by: Donna Polanco MD, PhD on 04/22/2020 1:14 PM PST Station ID: [id number]
--- NOTE | 2020-04-22 13:42 | ANESTHESIA PROCEDURE NOTE ---
Diagnosis: wound infection on leg Procedure: midline IV Consent for Procedure(s) Verified and Reviewed: Yes Height and Weight: Height 5 ft 7 in Weight (kg) 64 kg Body Mass Index 22.1 Vital Signs: Temp Pulse Resp BP Pulse Ox 36.3 C L 75 16 129/63 94 04/22/20 08:00 04/22/20 08:00 04/22/20 08:00 04/22/20 08:00 04/22/20 08:00 Allergies Penicillins Allergy (Mild, Verified 04/19/20 14:37) Rash chlorhexidine Allergy (Unknown, Verified 04/19/20 14:37) Itching gabapentin Allergy (Verified 04/19/20 14:37) Unknown linezolid Allergy (Verified 04/19/20 14:37) Nausea Requesting Provider: Mikel Location: 2206 ASA classification: 3-Severe systemic disease Is this case an emergency?: No Anes. Monitoring and Equipment: All ports aspirate blood, Sterile prep and drape Anes. Procedure Start Time: 12:20 Anes. Procedure Stop Time: 12:51 Procedure Notes: called for PICC line, TO with RN, pt consented. Left brachial accessed with US, seldinger technique, sterile procedures. Unable to pass line beyone 20 cm (midline) trimmed at 20 and left as midline catheter. Dr Winston made aware. CXR confirms placement below clavicle.
--- NOTE | 2020-04-22 14:30 | PROVIDER PROGRESS NOTE ---
Assessment/Plan - Problem List (1) MRSA bacteremia Assessment/Plan: The gram pos in blood has been IDd as MRSA. Will order precautions. Will request PICC line as she will need iv antibiotics for 2+ weeks. (2) Sacral decubitus ulcer Qualifiers: Pressure injury stage: stage 3 Qualified Code(s): L89.153 - Pressure ulcer of sacral region, stage 3 Assessment/Plan: Awaiting general surgery consultation from the weekend general surgeon, Dr. Shaun Greene. Possibly would promote having the diverting colostomy so she does not have 2 sit in her feces. Stephens is in place but she was self cathing before. You meds for pain control (3) Pelvic cellulitis in female Assessment/Plan: Impression of the general surgeon, Dr. Foster, after reviewing the CT images what stat the majority of the problem is from cellulitis in the soft tissues, it is causing her pain, it probably led to the bacteremia as well. Continue with pain meds control. Continue with antibx. (4) Decubitus ulcer, heel Qualifiers: Pressure injury stage: unstageable Laterality: unspecified laterality Qualified Code(s): L89.600 - Pressure ulcer of unspecified heel, unstageable Assessment/Plan: Was debrided yesterday afternoon at bedside by Dr. Foster, general surgeon. Overnight she had extensive bleeding, a compression bandage was placed. Today Dr. Kaye has put a surgical Gelfoam on it and saw the patient. Appreciate her input (5) Chronic osteomyelitis, other specified site Assessment/Plan: As per Hx (6) Anemia Qualifiers: Anemia type: unspecified type Qualified Code(s): D64.9 - Anemia, unspecified Assessment/Plan: B12 and folate levels are adequate from blood test. Iron levels and iron stores are low. We will start oral iron replacement therapy Follow CBC daily. (7) Paraplegia following spinal cord injury Assessment/Plan: As per Hx (8) Neurogenic bladder Assessment/Plan: As per history. (9) Chronic pain Qualifiers: Chronic pain type: chronic pain syndrome Qualified Code(s): G89.4 - Chronic pain syndrome Assessment/Plan: Morphine is not preferred, she needs [place] for pain control (10) Hypothyroidism Assessment/Plan: Continue with thyroid replacement. (11) Anxiety Assessment/Plan: Continue with management as needed. 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 Assessment/Plan: She received alcohol nasal swabs (13) Sepsis Assessment/Plan: Resolved - Current Meds Current Meds: Current Medications Generic Name Dose Route Start Last Admin Trade Name Freq PRN Reason Stop Dose Admin Hydrocodone Bitart/Acetaminophen 2 tab 04/20/20 18:28 04/22/20 12:12 Hydrocod/Acetam 5/325 Mg Tablet PO 2 tab Q4HR PRN Administration PAIN Alcohol 1 amp 04/20/20 09:00 04/22/20 08:31 Ethyl Alcohol 62% Swab Ampule CONNER 1 amp BID VANE Administration Ascorbic Acid 500 mg 04/22/20 08:00 04/22/20 08:29 Ascorbic Acid Chew 500 Mg Tablet PO 500 mg DAILY VANE Administration Benzonatate 100 mg 04/22/20 06:57 04/22/20 08:23 Benzonatate 100 Mg Capsule PO 100 mg TID PRN Administration Cough Docusate Sodium 250 - 500 mg 04/22/20 09:00 04/22/20 08:23 Docusate Sodium 250 Mg Capsule PO 250 mg DAILY VANE Administration Ferrous Gluconate 324 mg 04/22/20 09:00 04/22/20 08:45 Ferrous Gluconate 324 Mg Tablet PO 324 mg DAILYWM VANE Administration Heparin Sodium (Porcine) 5,000 unit 04/19/20 21:00 04/22/20 08:33 Heparin 5,000 Unit/Ml Vial SUBQ Not Given BID VANE Cefepime HCl 2 gm/ Sodium 100 mls @ 200 mls/hr 04/19/20 21:00 04/22/20 10:10 Chloride IV Infused BID VANE Infusion Metronidazole 500 mg in 100 mls @ 100 mls/hr 04/20/20 08:00 04/22/20 09:31 Flagyl 500 Mg/100 Ml IV Infused Q8H VANE Infusion Vancomycin HCl 1 gm/ Sodium 250 mls @ 167 mls/hr 04/21/20 17:00 04/22/20 06:56 Chloride IV Infused Q12H VANE Infusion Levothyroxine Sodium 50 mcg 04/20/20 07:00 04/22/20 05:59 Levothyroxine 25 Mcg Tablet PO 50 mcg QDAC VANE Administration Multivitamins/Minerals 1 tab 04/22/20 08:00 04/22/20 08:24 Multivitamin W/Minerals Tablet PO 1 tab DAILYWM VANE Administration Ondansetron HCl 4 mg 04/19/20 20:02 04/22/20 10:13 Ondansetron 4 Mg/2 Ml Vial IVP 4 mg Q6HR PRN Administration Nausea / Vomiting Polyethylene Glycol 17 gm 04/22/20 09:00 04/22/20 08:42 Polyethylene Glycol 3350 17 Gm Packet PO Not Given DAILY VANE Sodium Chloride 10 ml 04/19/20 20:02 04/19/20 22:32 Sodium Chloride Flush 0.9% 10 Ml Syringe IVP 10 ml PRN PRN Administration NEEDED PER PROVIDER ORDERS Sodium Chloride 10 ml 04/20/20 01:00 04/22/20 10:14 Sodium Chloride Flush 0.9% 10 Ml Syringe IVP 10 ml 0100,0900,1700 [facility] Administration - Lab Result Fish Bone Diagrams: 04/22/20 14:07 04/22/20 05:35 - Additional Planning My Orders: My Active Orders 04/22/20 08:00 Ascorbic Acid Chew [Vitamin C] 500 mg PO DAILY Multivitamin W/Minerals [Theragran M] 1 tab PO DAILYWM 04/22/20 09:00 Ferrous Gluconate [Fergon] 324 mg PO DAILYWM 04/22/20 14:00 HEMOGLOBIN AND HEMATOCRIT [HEME] Timed 04/22/20 14:27 Miscellaenous Nursing Order [RC] QSHIFT Subjective - Subjective Patient Reports: Other (Sedated, got iv Ativan x1 for PICC line placement) Nursing Reports: Other (Eating her diet and is not SOB) Objective Vital Signs: Vital Signs - 24 hr 04/21/20 04/21/20 04/22/20 15:59 21:00 00:53 Temperature 36.9 C 37.5 C 37.0 C Heart Rate [ 95 86 78 Brachial] Respiratory 22 21 18 Rate Blood Pressure 134/50 H [Left Brachial artery] Blood Pressure 118/56 L 124/59 L [Right Brachial artery] O2 Saturation 97 97 96 04/22/20 08:00 Temperature 36.3 C L Heart Rate [ 75 Brachial] Respiratory 16 Rate Blood Pressure [Left Brachial artery] Blood Pressure 129/63 [Right Brachial artery] O2 Saturation 94 Oxygen O2 Source Room air I&O (Last 24 Hrs): Intake and Output Totals x24h 04/20/20 04/21/20 04/22/20 23:59 23:59 23:59 Intake Total 7355.000 3820 800 Output Total 1475 3400 1150 Balance 5880.000 420 -350 General: Other (sleepy) HEENT: Mucous membr. moist/pink Neck: Supple, No JVD Neuro: Other (Sedated. Paraplegia.) Cardiovascular: Regular rate, No murmurs Respiratory: No respiratory distress, Breath sounds nml (anteriorly.) Abdomen: Soft Genitourinary: Other (Stephens in place. Wounds are open, as at admission) Extremities: Other (Trace edema, L heel ulcer bandaged) - Results Results: Laboratory Results WBC 8.0 x10^3/uL (4.8-10.8) 04/22/20 05:35 RBC 3.23 10^6/uL (4.20-5.40) L 04/22/20 05:35 Hgb 7.8 g/dL (12.0-16.0) L 04/22/20 05:35 Hct 26.7 % (37.0-47.0) L 04/22/20 05:35 MCV 82.7 fL (81.0-99.0) 04/22/20 05:35 MCH 24.1 pg (27.0-31.0) L 04/22/20 05:35 MCHC 29.2 g/dL (32.0-36.0) L 04/22/20 05:35 RDW 17.3 % (12.0-15.0) H 04/22/20 05:35 Plt Count 324 10^3/uL (130-450) 04/22/20 05:35 MPV 9.1 fL (7.9-10.8) 04/22/20 05:35 Neut # (Auto) 5.7 10^3/uL (1.5-6.6) 04/22/20 05:35 Lymph # (Auto) 1.5 10^3/uL (1.5-3.5) 04/22/20 05:35 [place] # (Auto) 0.5 10^3/uL (0.0-1.0) 04/22/20 05:35 Eos # (Auto) 0.2 10^3/uL (0.0-0.7) 04/22/20 05:35 Baso # (Auto) 0.0 10^3/uL (0.0-0.1) 04/22/20 05:35 Absolute Nucleated RBC 0.00 x10^3/uL 04/22/20 05:35 Total Counted 100 04/19/20 15:00 Band Neuts % (Manual) 10 % (0-10) 04/19/20 15:00 Abnorm Lymph % (Manual) 0 % 04/19/20 15:00 Nucleated RBC % 0.0 /100WBC 04/22/20 05:35 Neutrophils # (Manual) 30.3 10^3/uL (1.5-6.6) H 04/19/20 15:00 Lymphocytes # (Manual) 0.3 10^3/uL (1.5-3.5) L 04/19/20 15:00 Monocytes # (Manual) 1.3 10^3/uL (0.0-1.0) H 04/19/20 15:00 Eosinophils # (Manual) 0.0 10^3/uL (0-0.7) 04/19/20 15:00 Basophils # (Manual) 0.0 10^3/uL (0-0.1) 04/19/20 15:00 Differential Comment MANUAL DIFFERENTIAL 04/19/20 15:00 Platelet Estimate NORMAL (130-450,000) (NORMAL) 04/19/20 15:00 Platelet Morphology NORMAL APPEARANCE (NORMAL) 04/19/20 15:00 RBC Morph Micro Appear 2+ HYPOCHROMASIA (NORMAL) 04/19/20 15:00 Sodium 140 mmol/L (135-145) 04/22/20 05:35 Potassium 3.3 mmol/L (3.5-5.0) L 04/22/20 05:35 Chloride 109 mmol/L (101-111) 04/22/20 05:35 Carbon Dioxide 24 mmol/L (21-32) 04/22/20 05:35 Anion Gap 7.0 (6-13) 04/22/20 05:35 BUN 12 mg/dL (6-20) 04/22/20 05:35 Creatinine 0.4 mg/dL (0.4-1.0) 04/22/20 05:35 Estimated GFR (MDRD) 161 (>89) 04/22/20 05:35 Glucose 88 mg/dL (70-100) 04/22/20 05:35 Lactic Acid 1.3 mmol/L (0.5-2.2) 04/19/20 15:00 Calcium 7.4 mg/dL (8.5-10.3) L 04/22/20 05:35 Iron < 6 ug/dL (28-170) L 04/22/20 05:35 TIBC 168 ug/dL (250-450) L 04/22/20 05:35 Transferrin 120 mg/dL (192-382) L 04/22/20 05:35 Total Bilirubin 2.1 mg/dL (0.2-1.0) H 04/19/20 15:00 AST 24 IU/L (10-42) 04/19/20 15:00 ALT 26 IU/L (10-60) 04/19/20 15:00 Alkaline Phosphatase 62 IU/L (42-121) 04/19/20 15:00 Total Protein 7.3 g/dL (6.7-8.2) 04/19/20 15:00 Albumin 2.5 g/dL (3.2-5.5) L 04/19/20 15:00 Globulin 4.8 g/dL (2.1-4.2) H 04/19/20 15:00 Albumin/Globulin Ratio 0.5 (1.0-2.2) L 04/19/20 15:00 Vitamin B12 1084 pg/mL (180-914) H 04/22/20 05:35 Folate 13.60 ng/mL (5.90 - >24.8) 04/22/20 05:35 TSH 1.71 uIU/mL (0.34-5.60) 04/20/20 04:55 Cortisol 12.2 ug/dL 04/20/20 04:55 Urine Color YELLOW 04/19/20 09:15 Urine Clarity CLEAR (CLEAR) 04/19/20 09:15 Urine pH 5.0 PH (5.0-7.5) 04/19/20 09:15 Ur Specific [place] 1.010 (1.002-1.030) 04/19/20 09:15 Urine Protein NEGATIVE mg/dL (NEGATIVE) 04/19/20 09:15 Urine Glucose (UA) NEGATIVE mg/dL (NEGATIVE) 04/19/20 09:15 Urine Ketones NEGATIVE mg/dL (NEGATIVE) 04/19/20 09:15 Urine Occult Blood NEGATIVE (NEGATIVE) 04/19/20 09:15 Urine Nitrite NEGATIVE (NEGATIVE) 04/19/20 09:15 Urine Bilirubin NEGATIVE (NEGATIVE) 04/19/20 09:15 Urine Urobilinogen 1 (NORMAL) E.U./dL (NORMAL) 04/19/20 09:15 Ur Leukocyte Esterase TRACE (NEGATIVE) H 04/19/20 09:15 Urine RBC 0-5 /HPF (0-5) 04/19/20 09:15 Urine WBC 6-10 /HPF (0-5) H 04/19/20 09:15 Urine WBC Clumps PRESENT 04/19/20 09:15 Ur Squamous Epith Cells FEW Squamous (<= Few) 04/19/20 09:15 Urine Bacteria Moderate /HPF (None Seen) H 04/19/20 09:15 Urine Culture Comments INDICATED 04/19/20 09:15 Nasal Adenovirus (PCR) NOT DETECTED 04/19/20 18:40 Nasal B. parapertussis DNA (PCR) NOT DETECTED 04/19/20 18:40 Nasal Coronavir 229E PCR NOT DETECTED 04/19/20 18:40 Nasal Coronavir HKU1 PCR NOT DETECTED 04/19/20 18:40 Nasal Coronavir NL63 PCR NOT DETECTED 04/19/20 18:40 Nasal Coronavir OC43 PCR NOT DETECTED 04/19/20 18:40 Nasal Enterovir/Rhinovir PCR NOT DETECTED 04/19/20 18:40 Nasal Influenza B PCR NOT DETECTED 04/19/20 18:40 Nasal Influenza A PCR NOT DETECTED 04/19/20 18:40 Nasal Parainfluen 1 PCR NOT DETECTED 04/19/20 18:40 Nasal Parainfluen 2 PCR NOT DETECTED 04/19/20 18:40 Nasal Parainfluen 3 PCR NOT DETECTED 04/19/20 18:40 Nasal Parainfluen 4 PCR NOT DETECTED 04/19/20 18:40 Nasal RSV (PCR) NOT DETECTED 04/19/20 18:40 Nasal Screen MRSA (PCR) POSITIVE (NEGATIVE) A* 04/19/20 22:40 Nasal B.pertussis DNA PCR NOT DETECTED 04/19/20 18:40 Nasal C.pneumoniae (PCR) NOT DETECTED 04/19/20 18:40 Conner Human Metapneumo PCR NOT DETECTED 04/19/20 18:40 Nasal M.pneumoniae (PCR) NOT DETECTED 04/19/20 18:40 Nasal SARS-CoV-2 (PCR) NOT DETECTED 04/19/20 18:40 Last Dose Date 04/20/20 04/21/20 10:00 Last Dose Time 0241 04/21/20 10:00 Vancomycin Trough 27.2 ug/mL (10.0-20.0) H* 04/21/20 10:00 Blood Type A NEGATIVE 04/20/20 06:15 Antibody Screen NEGATIVE 04/20/20 06:15 Crossmatch See Detail 04/20/20 06:15 - Procedures Procedures: Procedures EXTRACTION OF BUTTOCK SKIN, EXTERNAL APPROACH (02/18/19) EXTRACTION OF L UP LEG SUBCU/FASCIA, PERC APPROACH (02/18/19) EXTRACTION OF LEFT FOOT SKIN, EXTERNAL APPROACH (02/18/19) EXTRACTION OF RIGHT FOOT SKIN, EXTERNAL APPROACH (02/18/19) INSERTION OF INFUSION DEV INTO SUP VENA CAVA, PERC APPROACH (02/18/19) Sepsis Event Note (H) - Evaluation Current Stage of Sepsis: Sepsis Possible source of Sepsis: positive: Skin/soft tissue - Sepsis Criteria Sepsis Criteria: Recorded Heart Rate greater than 90 bpm, Recorded Respiratory Rate greater than 20, WBC count greater than 10% bands, SBP less than 90 mmHg
[2020-04-22 14:39] LABS: HGB - HEMOGLOBIN 8.1 g/dL (12.0-16.0)
[2020-04-22] MEDS ORDERED: SODIUM CHLORIDE 0.9% 500 ML IV PRN (21:45)
[2020-04-23] MEDS: HYDROcod/ACETAM 5/325 MG TABLET PO PRN ×6 (00:30→22:59)
[2020-04-23] MEDS: metroNIDAZOLE 500 MG/100 ML 500 MG/100 ML BAG IV SCH ×3 (00:31→15:26)
[2020-04-23] MEDS: ONDANSETRON 4 MG/2 ML VIAL IVP PRN ×5 (00:42→22:59)
[2020-04-23] MEDS: SODIUM CHLORIDE FLUSH 0.9% 10 ML SYRINGE IVP SCH ×3 (00:45→17:40)
[2020-04-23] MEDS: VANCOMYCIN INJ 1 GM in SODIUM CHLORIDE 0.9% 250 ML IV SCH ×2 (04:37→17:32)
[2020-04-23 05:43] LABS: BASOPHILS % (AUTO) 0.2 %; EOSINOPHILS # (AUTO) 0.2 10^3/uL (0.0-0.7); EOSINOPHILS % (AUTO) 2.9 %; HGB - HEMOGLOBIN 8.5 g/dL (12.0-16.0); LYMPHOCYTES # (AUTO) 1.6 10^3/uL (1.5-3.5); LYMPHOCYTES % (AUTO) 19.1 %; MEAN CORPUSCULAR HEMOGLOBIN 24.3 pg (27.0-31.0); MEAN CORPUSCULAR HGB CONC 29.2 g/dL (32.0-36.0); MEAN CORPUSCULAR VOLUME 83.1 fL (81.0-99.0); MEAN PLATELET VOLUME 9.6 fL (7.9-10.8); MONOCYTES # (AUTO) 0.5 10^3/uL (0.0-1.0); MONOCYTES % (AUTO) 6.2 %; NEUTROPHILS # (AUTO) 5.8 10^3/uL (1.5-6.6); NEUTROPHILS % (AUTO) 70.4 %; PLT - PLATELET COUNT 363 10^3/uL (130-450); RED CELL DISTRIBUTION WIDTH 18.3 % (12.0-15.0); WHITE BLOOD COUNT 8.2 x10^3/uL (4.8-10.8)
[2020-04-23 05:51] LABS: CALCIUM 7.9 mg/dL (8.5-10.3); CREATININE 0.3 mg/dL (0.4-1.0)
[2020-04-23] MEDS: LEVOTHYROXINE 25 MCG TABLET PO SCH (06:41)
[2020-04-23] MEDS: FERROUS GLUCONATE 324 MG TABLET PO SCH ×2 (08:02→10:24)
[2020-04-23] MEDS: MULTIVITAMIN W/MINERALS TABLET PO SCH ×2 (08:02→10:24)
[2020-04-23] MEDS: ASCORBIC ACID CHEW 500 MG TABLET PO SCH (10:24)
[2020-04-23] MEDS: DOCUSATE SODIUM 250 MG CAPSULE PO SCH (10:24)
[2020-04-23] MEDS: CEFEPIME 2 GM in SODIUM CHLORIDE 0.9% MINIBAG 100 ML IV SCH ×2 (10:24→20:11)
[2020-04-23] MEDS: polyethylene glycoL 3350 17 GM PACKET PO SCH (10:25)
[2020-04-23] MEDS: HEPARIN 5,000 UNIT/ML VIAL SUBQ SCH ×2 (10:25→20:12)
[2020-04-23] MEDS: ethyl alcohoL 62% SWAB AMPULE NAS SCH ×2 (10:25→20:11)
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
[2020-04-23 16:22] LABS: VANCOMYCIN,TROUGH 18.7 ug/mL (10.0-20.0)
--- NOTE | 2020-04-23 17:40 | PROVIDER PROGRESS NOTE ---
Assessment/Plan - Problem List (1) MRSA bacteremia Assessment/Plan: IV PICC line in place. Continue with IV Vanco. Duration of iv antibx is yet to be determined: Gen Surg consult recommendations anfter eval of her pelvis and sacrum (2) Sacral decubitus ulcer Qualifiers: Pressure injury stage: stage 3 Qualified Code(s): L89.153 - Pressure ulcer of sacral region, stage 3 Assessment/Plan: Continue antibx Cont oain meds General surgery evaluation today is pending regarding further management (3) Pelvic cellulitis in female Assessment/Plan: Continue IV antibiotics. Continue pain meds. Management also will be impacted by #2 above (4) Decubitus ulcer, heel Qualifiers: Pressure injury stage: unstageable Laterality: unspecified laterality Qualified Code(s): L89.600 - Pressure ulcer of unspecified heel, unstageable Assessment/Plan: Post debridement by the general surgeon at bedside. Continue with the topical care that the general surgeon ordered Continue IV antibiotics. (5) Chronic osteomyelitis, other specified site Assessment/Plan: As per Hx (6) Anemia Qualifiers: Anemia type: unspecified type Qualified Code(s): D64.9 - Anemia, unspecified Assessment/Plan: Hemodilutional or anemia of chronic disease. Follow hemoglobin daily, transfuse if under 7 (7) Paraplegia following spinal cord injury Assessment/Plan: As per Hx (8) Neurogenic bladder Assessment/Plan: He is to do self cath at home. She has a Stephens in place now to assist with perineal healing (9) Chronic pain Qualifiers: Chronic pain type: chronic pain syndrome Qualified Code(s): G89.4 - Chronic pain syndrome Assessment/Plan: Continue pain meds (10) Hypothyroidism Assessment/Plan: Continue her home thyroid replacement dose. (11) Anxiety Assessment/Plan: Continue management as per history 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 Assessment/Plan: She received alcohol nasal swabs at admission (13) Sepsis Assessment/Plan: Resolved - Current Meds Current Meds: Current Medications Generic Name Dose Route Start Last Admin Trade Name Freq PRN Reason Stop Dose Admin Hydrocodone Bitart/Acetaminophen 2 tab 04/20/20 18:28 04/23/20 14:25 Hydrocod/Acetam 5/325 Mg Tablet PO 2 tab Q4HR PRN Administration PAIN Alcohol 1 amp 04/20/20 09:00 04/23/20 10:25 Ethyl Alcohol 62% Swab Ampule CONNER 1 amp BID VANE Administration Ascorbic Acid 500 mg 04/22/20 08:00 04/23/20 10:24 Ascorbic Acid Chew 500 Mg Tablet PO 500 mg DAILY VANE Administration Benzonatate 100 mg 04/22/20 06:57 04/22/20 08:23 Benzonatate 100 Mg Capsule PO 100 mg TID PRN Administration Cough Docusate Sodium 250 - 500 mg 04/22/20 09:00 04/23/20 10:24 Docusate Sodium 250 Mg Capsule PO Not Given DAILY VANE Ferrous Gluconate 324 mg 04/22/20 09:00 04/23/20 10:24 Ferrous Gluconate 324 Mg Tablet PO 324 mg DAILYWM VANE Administration Heparin Sodium (Porcine) 5,000 unit 04/19/20 21:00 04/23/20 10:25 Heparin 5,000 Unit/Ml Vial SUBQ Not Given BID VANE Cefepime HCl 2 gm/ Sodium 100 mls @ 200 mls/hr 04/19/20 21:00 04/23/20 11:30 Chloride IV Infused BID VANE Infusion Metronidazole 500 mg in 100 mls @ 100 mls/hr 04/20/20 08:00 04/23/20 16:30 Flagyl 500 Mg/100 Ml IV Infused Q8H VANE Infusion Vancomycin HCl 1 gm/ Sodium 250 mls @ 167 mls/hr 04/21/20 17:00 04/23/20 17:32 Chloride IV 167 mls/hr Q12H VANE Administration Sodium Chloride 500 mls @ 0 mls/hr 04/22/20 21:45 04/22/20 22:13 Normal Saline 0.9% IV 10 mls/hr Q24H PRN Administration TKO RATE TKO Levothyroxine Sodium 50 mcg 04/20/20 07:00 04/23/20 06:41 Levothyroxine 25 Mcg Tablet PO 50 mcg QDAC VANE Administration Multivitamins/Minerals 1 tab 04/22/20 08:00 04/23/20 10:24 Multivitamin W/Minerals Tablet PO 1 tab DAILYWM VANE Administration Ondansetron HCl 4 mg 04/19/20 20:02 04/23/20 14:26 Ondansetron 4 Mg/2 Ml Vial IVP 4 mg Q6HR PRN Administration Nausea / Vomiting Polyethylene Glycol 17 gm 04/22/20 09:00 04/23/20 10:25 Polyethylene Glycol 3350 17 Gm Packet PO Not Given DAILY VANE Sodium Chloride 10 ml 04/19/20 20:02 04/19/20 22:32 Sodium Chloride Flush 0.9% 10 Ml Syringe IVP 10 ml PRN PRN Administration NEEDED PER PROVIDER ORDERS Sodium Chloride 10 ml 04/20/20 01:00 04/23/20 10:26 Sodium Chloride Flush 0.9% 10 Ml Syringe IVP 10 ml 0100,0900,1700 VANE Administration - Lab Result Fish Bone Diagrams: 04/24/20 05:28 04/24/20 05:28 - Additional Planning My Orders: My Active Orders 04/22/20 21:45 Sodium Chloride 0.9% [Normal Saline 0.9%] 500 ml IV Q24H Subjective - Subjective Patient Reports: Resting Comfortably Objective Vital Signs: Vital Signs - 24 hr 04/22/20 04/23/20 04/23/20 20:05 00:00 08:00 Temperature 36.7 C 36.4 C L 36.4 C L Heart Rate [ 93 Brachial] Heart Rate [ 75 94 Radial] Respiratory 16 18 18 Rate Blood Pressure 137/87 H [Left Brachial artery] Blood Pressure 135/82 H 107/68 [Right Brachial artery] O2 Saturation 97 92 99 04/23/20 16:00 Temperature 36.9 C Heart Rate [ 74 Brachial] Heart Rate [ Radial] Respiratory 15 Rate Blood Pressure [Left Brachial artery] Blood Pressure 142/77 H [Right Brachial artery] O2 Saturation 97 Oxygen O2 Source Room air I&O (Last 24 Hrs): Intake and Output Totals x24h 04/21/20 04/22/20 04/23/20 23:59 23:59 23:59 Intake Total 3820 1490 1250 Output Total 3400 3650 3700 Balance 420 -2160 -2450 General: Alert HEENT: Mucous membr. moist/pink Neck: Supple Neuro: Other (Paraplegia) Cardiovascular: Regular rate Respiratory: No respiratory distress Abdomen: Soft Extremities: Other (L heel bandaged) - Results Results: Laboratory Results WBC 8.2 x10^3/uL (4.8-10.8) 04/23/20 05:19 RBC 3.50 10^6/uL (4.20-5.40) L 04/23/20 05:19 Hgb 8.5 g/dL (12.0-16.0) L 04/23/20 05:19 Hct 29.1 % (37.0-47.0) L 04/23/20 05:19 MCV 83.1 fL (81.0-99.0) 04/23/20 05:19 MCH 24.3 pg (27.0-31.0) L 04/23/20 05:19 MCHC 29.2 g/dL (32.0-36.0) L 04/23/20 05:19 RDW 18.3 % (12.0-15.0) H 04/23/20 05:19 Plt Count 363 10^3/uL (130-450) 04/23/20 05:19 MPV 9.6 fL (7.9-10.8) 04/23/20 05:19 Neut # (Auto) 5.8 10^3/uL (1.5-6.6) 04/23/20 05:19 Lymph # (Auto) 1.6 10^3/uL (1.5-3.5) 04/23/20 05:19 [place] # (Auto) 0.5 10^3/uL (0.0-1.0) 04/23/20 05:19 Eos # (Auto) 0.2 10^3/uL (0.0-0.7) 04/23/20 05:19 Baso # (Auto) 0.0 10^3/uL (0.0-0.1) 04/23/20 05:19 Absolute Nucleated RBC 0.00 x10^3/uL 04/23/20 05:19 Total Counted 100 04/19/20 15:00 Band Neuts % (Manual) 10 % (0-10) 04/19/20 15:00 Abnorm Lymph % (Manual) 0 % 04/19/20 15:00 Nucleated RBC % 0.0 /100WBC 04/23/20 05:19 Neutrophils # (Manual) 30.3 10^3/uL (1.5-6.6) H 04/19/20 15:00 Lymphocytes # (Manual) 0.3 10^3/uL (1.5-3.5) L 04/19/20 15:00 Monocytes # (Manual) 1.3 10^3/uL (0.0-1.0) H 04/19/20 15:00 Eosinophils # (Manual) 0.0 10^3/uL (0-0.7) 04/19/20 15:00 Basophils # (Manual) 0.0 10^3/uL (0-0.1) 04/19/20 15:00 Differential Comment MANUAL DIFFERENTIAL 04/19/20 15:00 Platelet Estimate NORMAL (130-450,000) (NORMAL) 04/19/20 15:00 Platelet Morphology NORMAL APPEARANCE (NORMAL) 04/19/20 15:00 RBC Morph Micro Appear 2+ HYPOCHROMASIA (NORMAL) 04/19/20 15:00 Sodium 140 mmol/L (135-145) 04/23/20 05:19 Potassium 4.0 mmol/L (3.5-5.0) 04/23/20 05:19 Chloride 107 mmol/L (101-111) 04/23/20 05:19 Carbon Dioxide 28 mmol/L (21-32) 04/23/20 05:19 Anion Gap 5.0 (6-13) L 04/23/20 05:19 BUN 15 mg/dL (6-20) 04/23/20 05:19 Creatinine 0.3 mg/dL (0.4-1.0) L 04/23/20 05:19 Estimated GFR (MDRD) 225 (>89) 04/23/20 05:19 Glucose 106 mg/dL (70-100) H 04/23/20 05:19 Lactic Acid 1.3 mmol/L (0.5-2.2) 04/19/20 15:00 Calcium 7.9 mg/dL (8.5-10.3) L 04/23/20 05:19 Iron < 6 ug/dL (28-170) L 04/22/20 05:35 TIBC 168 ug/dL (250-450) L 04/22/20 05:35 Transferrin 120 mg/dL (192-382) L 04/22/20 05:35 Total Bilirubin 2.1 mg/dL (0.2-1.0) H 04/19/20 15:00 AST 24 IU/L (10-42) 04/19/20 15:00 ALT 26 IU/L (10-60) 04/19/20 15:00 Alkaline Phosphatase 62 IU/L (42-121) 04/19/20 15:00 Total Protein 7.3 g/dL (6.7-8.2) 04/19/20 15:00 Albumin 2.5 g/dL (3.2-5.5) L 04/19/20 15:00 Globulin 4.8 g/dL (2.1-4.2) H 04/19/20 15:00 Albumin/Globulin Ratio 0.5 (1.0-2.2) L 04/19/20 15:00 Vitamin B12 1084 pg/mL (180-914) H 04/22/20 05:35 Folate 13.60 ng/mL (5.90 - >24.8) 04/22/20 05:35 TSH 1.71 uIU/mL (0.34-5.60) 04/20/20 04:55 Cortisol 12.2 ug/dL 04/20/20 04:55 Urine Color YELLOW 04/19/20 09:15 Urine Clarity CLEAR (CLEAR) 04/19/20 09:15 Urine pH 5.0 PH (5.0-7.5) 04/19/20 09:15 Ur Specific [place] 1.010 (1.002-1.030) 04/19/20 09:15 Urine Protein NEGATIVE mg/dL (NEGATIVE) 04/19/20 09:15 Urine Glucose (UA) NEGATIVE mg/dL (NEGATIVE) 04/19/20 09:15 Urine Ketones NEGATIVE mg/dL (NEGATIVE) 04/19/20 09:15 Urine Occult Blood NEGATIVE (NEGATIVE) 04/19/20 09:15 Urine Nitrite NEGATIVE (NEGATIVE) 04/19/20 09:15 Urine Bilirubin NEGATIVE (NEGATIVE) 04/19/20 09:15 Urine Urobilinogen 1 (NORMAL) E.U./dL (NORMAL) 04/19/20 09:15 Ur Leukocyte Esterase TRACE (NEGATIVE) H 04/19/20 09:15 Urine RBC 0-5 /HPF (0-5) 04/19/20 09:15 Urine WBC 6-10 /HPF (0-5) H 04/19/20 09:15 Urine WBC Clumps PRESENT 04/19/20 09:15 Ur Squamous Epith Cells FEW Squamous (<= Few) 04/19/20 09:15 Urine Bacteria Moderate /HPF (None Seen) H 04/19/20 09:15 Urine Culture Comments INDICATED 04/19/20 09:15 Nasal Adenovirus (PCR) NOT DETECTED 04/19/20 18:40 Nasal B. parapertussis DNA (PCR) NOT DETECTED 04/19/20 18:40 Nasal Coronavir 229E PCR NOT DETECTED 04/19/20 18:40 Nasal Coronavir HKU1 PCR NOT DETECTED 04/19/20 18:40 Nasal Coronavir NL63 PCR NOT DETECTED 04/19/20 18:40 Nasal Coronavir OC43 PCR NOT DETECTED 04/19/20 18:40 Nasal Enterovir/Rhinovir PCR NOT DETECTED 04/19/20 18:40 Nasal Influenza B PCR NOT DETECTED 04/19/20 18:40 Nasal Influenza A PCR NOT DETECTED 04/19/20 18:40 Nasal Parainfluen 1 PCR NOT DETECTED 04/19/20 18:40 Nasal Parainfluen 2 PCR NOT DETECTED 04/19/20 18:40 Nasal Parainfluen 3 PCR NOT DETECTED 04/19/20 18:40 Nasal Parainfluen 4 PCR NOT DETECTED 04/19/20 18:40 Nasal RSV (PCR) NOT DETECTED 04/19/20 18:40 Nasal Screen MRSA (PCR) POSITIVE (NEGATIVE) A* 04/19/20 22:40 Nasal B.pertussis DNA PCR NOT DETECTED 04/19/20 18:40 Nasal C.pneumoniae (PCR) NOT DETECTED 04/19/20 18:40 [place]ner Human Metapneumo PCR NOT DETECTED 04/19/20 18:40 Nasal M.pneumoniae (PCR) NOT DETECTED 04/19/20 18:40 Nasal SARS-CoV-2 (PCR) NOT DETECTED 04/19/20 18:40 Last Dose Date 10/23/19 04/23/20 16:09 Last Dose Time 610AM 04/23/20 16:09 Vancomycin Trough 18.7 ug/mL (10.0-20.0) 04/23/20 16:09 Blood Type A NEGATIVE 04/20/20 06:15 Antibody Screen NEGATIVE 04/20/20 06:15 Crossmatch See Detail 04/20/20 06:15 - Procedures Procedures: Procedures EXTRACTION OF BUTTOCK SKIN, EXTERNAL APPROACH (02/18/19) EXTRACTION OF L UP LEG SUBCU/FASCIA, PERC APPROACH (02/18/19) EXTRACTION OF LEFT FOOT SKIN, EXTERNAL APPROACH (02/18/19) EXTRACTION OF RIGHT FOOT SKIN, EXTERNAL APPROACH (02/18/19) INSERTION OF INFUSION DEV INTO SUP VENA CAVA, PERC APPROACH (02/18/19) Sepsis Event Note (H) - Evaluation Current Stage of Sepsis: Sepsis Possible source of Sepsis: positive: Skin/soft tissue - Sepsis Criteria Sepsis Criteria: Recorded Heart Rate greater than 90 bpm, Recorded Respiratory Rate greater than 20, WBC count greater than 10% bands, SBP less than 90 mmHg
[2020-04-24] MEDS: metroNIDAZOLE 500 MG/100 ML 500 MG/100 ML BAG IV SCH ×3 (00:24→15:53)
[2020-04-24] MEDS: SODIUM CHLORIDE FLUSH 0.9% 10 ML SYRINGE IVP SCH ×3 (01:52→17:16)
[2020-04-24] MEDS: HYDROcod/ACETAM 5/325 MG TABLET PO PRN ×2 (02:54→06:50)
[2020-04-24] MEDS: VANCOMYCIN INJ 1 GM in SODIUM CHLORIDE 0.9% 250 ML IV SCH ×2 (04:48→17:16)
[2020-04-24 05:35] LABS: BASOPHILS % (AUTO) 0.2 %; EOSINOPHILS # (AUTO) 0.2 10^3/uL (0.0-0.7); EOSINOPHILS % (AUTO) 2.3 %; HGB - HEMOGLOBIN 8.6 g/dL (12.0-16.0); LYMPHOCYTES # (AUTO) 1.8 10^3/uL (1.5-3.5); LYMPHOCYTES % (AUTO) 20.5 %; MEAN CORPUSCULAR HEMOGLOBIN 24.8 pg (27.0-31.0); MEAN CORPUSCULAR HGB CONC 29.7 g/dL (32.0-36.0); MEAN CORPUSCULAR VOLUME 83.6 fL (81.0-99.0); MEAN PLATELET VOLUME 9.5 fL (7.9-10.8); MONOCYTES # (AUTO) 0.7 10^3/uL (0.0-1.0); MONOCYTES % (AUTO) 7.3 %; NEUTROPHILS # (AUTO) 6.1 10^3/uL (1.5-6.6); NEUTROPHILS % (AUTO) 68.2 %; PLT - PLATELET COUNT 364 10^3/uL (130-450); RED BLOOD COUNT 3.47 10^6/uL (4.20-5.40); RED CELL DISTRIBUTION WIDTH 18.7 % (12.0-15.0); WHITE BLOOD COUNT 8.9 x10^3/uL (4.8-10.8)
[2020-04-24 05:46] LABS: CALCIUM 7.9 mg/dL (8.5-10.3); CREATININE 0.4 mg/dL (0.4-1.0)
[2020-04-24] MEDS: ONDANSETRON 4 MG/2 ML VIAL IVP PRN ×3 (06:46→21:33)
[2020-04-24] MEDS: LEVOTHYROXINE 25 MCG TABLET PO SCH (06:50)
[2020-04-24] MEDS: HEPARIN 5,000 UNIT/ML VIAL SUBQ SCH ×2 (08:18→21:33)
[2020-04-24] MEDS: polyethylene glycoL 3350 17 GM PACKET PO SCH ×2 (08:18→09:38)
[2020-04-24] MEDS: SENNA 8.6 MG TABLET PO SCH (09:37)
[2020-04-24] MEDS: DOCUSATE SODIUM 250 MG CAPSULE PO SCH (09:37)
[2020-04-24] MEDS: MULTIVITAMIN W/MINERALS TABLET PO SCH (09:37)
[2020-04-24] MEDS: ASCORBIC ACID CHEW 500 MG TABLET PO SCH (09:37)
[2020-04-24] MEDS: FERROUS GLUCONATE 324 MG TABLET PO SCH (09:37)
[2020-04-24] MEDS: ethyl alcohoL 62% SWAB AMPULE NAS SCH ×2 (09:37→21:32)
[2020-04-24] MEDS: CEFEPIME 2 GM in SODIUM CHLORIDE 0.9% MINIBAG 100 ML IV SCH ×2 (09:38→21:33)
--- NOTE | 2020-04-24 11:41 | PROVIDER PROGRESS NOTE ---
Assessment/Plan - Problem List (1) MRSA bacteremia Assessment/Plan: PICC line is in place. IV Vanco is being dosed. Duration of treatment will depend on recommendations from general surgery and [facility]. (2) Sacral decubitus ulcer Qualifiers: Pressure injury stage: stage 3 Qualified Code(s): L89.153 - Pressure ulcer of sacral region, stage 3 Assessment/Plan: Dr. Greene did exam in her room and stated that there is a mass in her vagina plus the sacral and perineal decubitus. Continue with IV cefepime empirically. Will obtain [facility] consult for a biopsy of this area, if the patient will allow it. The General Surgeon also recommends an exam be done under anesthesia. (3) Pelvic cellulitis in female Assessment/Plan: Continue with IV Vanco and IV cefepime as described in #1 and #3. Will request [facility] consult and planning a biopsy of this area and exam under anesthesia, hopefully tomorrow. (4) Decubitus ulcer, heel Qualifiers: Pressure injury stage: unstageable Laterality: unspecified laterality Qualified Code(s): L89.600 - Pressure ulcer of unspecified heel, unstageable Assessment/Plan: Treated at bedside several days ago. Dressing changes have been started by general surgeon, Dr. Foster and instructions given for nursing care. (5) Chronic osteomyelitis, other specified site Assessment/Plan: As per Hx (6) Anemia Qualifiers: Anemia type: unspecified type Qualified Code(s): D64.9 - Anemia, unspecified Assessment/Plan: Hemodilutional and anemia of chronic disease. Follow CBC daily. Transfuse if hemoglobin under 7 (7) Paraplegia following spinal cord injury Assessment/Plan: As per Hx (8) Neurogenic bladder Assessment/Plan: As per Hx. She was self cathing before this admission. Currently a Stephens is in place to help with wound healing of the perineum. (9) Chronic pain Qualifiers: Chronic pain type: chronic pain syndrome Qualified Code(s): G89.4 - Chronic pain syndrome Assessment/Plan: Continue with pain meds as needed. (10) Hypothyroidism Assessment/Plan: Continue her home replacement dose (11) Anxiety Assessment/Plan: Continue management with meds as needed. She does not want to be on an SSRI. Prior to admission she used marijuana smoking for management of anxiety. 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 Assessment/Plan: She was nasal swab at admission, before the blood cultures turn positive for MRSA (13) Sepsis Assessment/Plan: Resolved. - Current Meds Current Meds: Current Medications Generic Name Dose Route Start Last Admin Trade Name Freq PRN Reason Stop Dose Admin Hydrocodone Bitart/Acetaminophen 2 tab 04/20/20 18:28 04/24/20 06:50 Hydrocod/Acetam 5/325 Mg Tablet PO 2 tab Q4HR PRN Administration PAIN Alcohol 1 amp 04/20/20 09:00 04/24/20 09:37 Ethyl Alcohol 62% Swab Ampule CONNER 1 amp BID VANE Administration Ascorbic Acid 500 mg 04/22/20 08:00 04/24/20 09:37 Ascorbic Acid Chew 500 Mg Tablet PO 500 mg DAILY VANE Administration Benzonatate 100 mg 04/22/20 06:57 04/22/20 08:23 Benzonatate 100 Mg Capsule PO 100 mg TID PRN Administration Cough Docusate Sodium 250 - 500 mg 04/22/20 09:00 04/24/20 09:37 Docusate Sodium 250 Mg Capsule PO 250 mg DAILY VANE Administration Ferrous Gluconate 324 mg 04/22/20 09:00 04/24/20 09:37 Ferrous Gluconate 324 Mg Tablet PO 324 mg DAILYWM VANE Administration Heparin Sodium (Porcine) 5,000 unit 04/19/20 21:00 04/24/20 08:18 Heparin 5,000 Unit/Ml Vial SUBQ Not Given BID VANE Cefepime HCl 2 gm/ Sodium 100 mls @ 200 mls/hr 04/19/20 21:00 04/24/20 10:57 Chloride IV Infused BID VANE Infusion Metronidazole 500 mg in 100 mls @ 100 mls/hr 04/20/20 08:00 04/24/20 10:56 Flagyl 500 Mg/100 Ml IV Infused Q8H VANE Infusion Vancomycin HCl 1 gm/ Sodium 250 mls @ 167 mls/hr 04/21/20 17:00 04/24/20 06:45 Chloride IV Infused Q12H VANE Infusion Levothyroxine Sodium 50 mcg 04/20/20 07:00 04/24/20 06:50 Levothyroxine 25 Mcg Tablet PO 50 mcg QDAC VANE Administration Multivitamins/Minerals 1 tab 04/22/20 08:00 04/24/20 09:37 Multivitamin W/Minerals Tablet PO 1 tab DAILYWM VANE Administration Ondansetron HCl 4 mg 04/19/20 20:02 04/24/20 06:46 Ondansetron 4 Mg/2 Ml Vial IVP 4 mg Q6HR PRN Administration Nausea / Vomiting Polyethylene Glycol 17 gm 04/24/20 09:00 04/24/20 09:38 Polyethylene Glycol 3350 17 Gm Packet PO 17 gm DAILY VANE Administration Senna 8.6 - 17.2 mg 04/24/20 09:00 04/24/20 09:37 Senna 8.6 Mg Tablet PO 8.6 mg DAILY VANE Administration Sodium Chloride 10 ml 04/19/20 20:02 04/19/20 22:32 Sodium Chloride Flush 0.9% 10 Ml Syringe IVP 10 ml PRN PRN Administration NEEDED PER PROVIDER ORDERS Sodium Chloride 10 ml 04/20/20 01:00 04/24/20 09:38 Sodium Chloride Flush 0.9% 10 Ml Syringe IVP 10 ml 0100,0900,1700 VANE Administration - Lab Result Fish Bone Diagrams: 04/24/20 05:28 04/24/20 05:28 - Additional Planning My Orders: My Active Orders 04/24/20 09:00 Senna [Senokot] 8.6 - 17.2 mg PO DAILY polyethylene glycoL 3350 [Miralax] 17 gm PO DAILY 04/24/20 10:51 IS [Incentive Spirometry - RT] [RC] TID Chest 1 View X-Ray [XR] Stat Subjective - Subjective Patient Reports: Shortness of Breath (Patient told her nurse that she was short of breath, her saturation is 100% on room air however) Objective Vital Signs: Vital Signs - 24 hr 04/23/20 04/24/20 04/24/20 16:00 00:00 08:15 Temperature 36.9 C 36.4 C L 36.4 C L Heart Rate [ 74 Brachial] Heart Rate [ 80 77 Radial] Respiratory 15 16 17 Rate Blood Pressure 142/77 H 136/75 H 156/79 H [Right Brachial artery] O2 Saturation 97 96 93 04/24/20 09:58 Temperature Heart Rate [ Brachial] Heart Rate [ Radial] Respiratory 17 Rate Blood Pressure [Right Brachial artery] O2 Saturation 100 Oxygen O2 Source Room air I&O (Last 24 Hrs): Intake and Output Totals x24h 04/22/20 04/23/2020 23:59 23:59 23:59 Intake Total 1490 2080 770 Output Total 8619 7720 1100 Balance -2160 -3620 -330 General: Alert HEENT: EOMI, Mucous membr. moist/pink Neck: Supple, No JVD Neuro: Other (Paraplegia) Cardiovascular: Regular rate Respiratory: No respiratory distress Abdomen: Soft Extremities: Other (Left heel in bandage, trace pedal edema bilateral) - Results Results: Laboratory Results WBC 8.9 x10^3/uL (4.8-10.8) 04/24/20 05:28 RBC 3.47 10^6/uL (4.20-5.40) L 04/24/20 05:28 Hgb 8.6 g/dL (12.0-16.0) L 04/24/20 05:28 Hct 29.0 % (37.0-47.0) L 04/24/20 05:28 MCV 83.6 fL (81.0-99.0) 04/24/20 05:28 MCH 24.8 pg (27.0-31.0) L 04/24/20 05:28 MCHC 29.7 g/dL (32.0-36.0) L 04/24/20 05:28 RDW 18.7 % (12.0-15.0) H 04/24/20 05:28 Plt Count 364 10^3/uL (130-450) 04/24/20 05:28 MPV 9.5 fL (7.9-10.8) 04/24/20 05:28 Neut # (Auto) 6.1 10^3/uL (1.5-6.6) 04/24/20 05:28 Lymph # (Auto) 1.8 10^3/uL (1.5-3.5) 04/24/20 05:28 [place] # (Auto) 0.7 10^3/uL (0.0-1.0) 04/24/20 05:28 Eos # (Auto) 0.2 10^3/uL (0.0-0.7) 04/24/20 05:28 Baso # (Auto) 0.0 10^3/uL (0.0-0.1) 04/24/20 05:28 Absolute Nucleated RBC 0.00 x10^3/uL 04/24/20 05:28 Total Counted 100 04/19/20 15:00 Band Neuts % (Manual) 10 % (0-10) 04/19/20 15:00 Abnorm Lymph % (Manual) 0 % 04/19/20 15:00 Nucleated RBC % 0.0 /100WBC 04/24/20 05:28 Neutrophils # (Manual) 30.3 10^3/uL (1.5-6.6) H 04/19/20 15:00 Lymphocytes # (Manual) 0.3 10^3/uL (1.5-3.5) L 04/19/20 15:00 Monocytes # (Manual) 1.3 10^3/uL (0.0-1.0) H 04/19/20 15:00 Eosinophils # (Manual) 0.0 10^3/uL (0-0.7) 04/19/20 15:00 Basophils # (Manual) 0.0 10^3/uL (0-0.1) 04/19/20 15:00 Differential Comment MANUAL DIFFERENTIAL 04/19/20 15:00 Platelet Estimate NORMAL (130-450,000) (NORMAL) 04/19/20 15:00 Platelet Morphology NORMAL APPEARANCE (NORMAL) 04/19/20 15:00 RBC Morph Micro Appear 2+ HYPOCHROMASIA (NORMAL) 04/19/20 15:00 Sodium 139 mmol/L (135-145) 04/24/20 05:28 Potassium 3.8 mmol/L (3.5-5.0) 04/24/20 05:28 Chloride 105 mmol/L (101-111) 04/24/20 05:28 Carbon Dioxide 27 mmol/L (21-32) 04/24/20 05:28 Anion Gap 7.0 (6-13) 04/24/20 05:28 BUN 11 mg/dL (6-20) 04/24/20 05:28 Creatinine 0.4 mg/dL (0.4-1.0) 04/24/20 05:28 Estimated GFR (MDRD) 161 (>89) 04/24/20 05:28 Glucose 84 mg/dL (70-100) 04/24/20 05:28 Lactic Acid 1.3 mmol/L (0.5-2.2) 04/19/20 15:00 Calcium 7.9 mg/dL (8.5-10.3) L 04/24/20 05:28 Iron < 6 ug/dL (28-170) L 04/22/20 05:35 TIBC 168 ug/dL (250-450) L 04/22/20 05:35 Transferrin 120 mg/dL (192-382) L 04/22/20 05:35 Total Bilirubin 2.1 mg/dL (0.2-1.0) H 04/19/20 15:00 AST 24 IU/L (10-42) 04/19/20 15:00 ALT 26 IU/L (10-60) 04/19/20 15:00 Alkaline Phosphatase 62 IU/L (42-121) 04/19/20 15:00 Total Protein 7.3 g/dL (6.7-8.2) 04/19/20 15:00 Albumin 2.5 g/dL (3.2-5.5) L 04/19/20 15:00 Globulin 4.8 g/dL (2.1-4.2) H 04/19/20 15:00 Albumin/Globulin Ratio 0.5 (1.0-2.2) L 04/19/20 15:00 Vitamin B12 1084 pg/mL (180-914) H 04/22/20 05:35 Folate 13.60 ng/mL (5.90 - >24.8) 04/22/20 05:35 TSH 1.71 uIU/mL (0.34-5.60) 04/20/20 04:55 Cortisol 12.2 ug/dL 04/20/20 04:55 Urine Color YELLOW 04/19/20 09:15 Urine Clarity CLEAR (CLEAR) 04/19/20 09:15 Urine pH 5.0 PH (5.0-7.5) 04/19/20 09:15 Ur Specific [place] 1.010 (1.002-1.030) 04/19/20 09:15 Urine Protein NEGATIVE mg/dL (NEGATIVE) 04/19/20 09:15 Urine Glucose (UA) NEGATIVE mg/dL (NEGATIVE) 04/19/20 09:15 Urine Ketones NEGATIVE mg/dL (NEGATIVE) 04/19/20 09:15 Urine Occult Blood NEGATIVE (NEGATIVE) 04/19/20 09:15 Urine Nitrite NEGATIVE (NEGATIVE) 12/15/20 09:15 Urine Bilirubin NEGATIVE (NEGATIVE) 04/19/20 09:15 Urine Urobilinogen 1 (NORMAL) E.U./dL (NORMAL) 04/19/20 09:15 Ur Leukocyte Esterase TRACE (NEGATIVE) H 04/19/20 09:15 Urine RBC 0-5 /HPF (0-5) 04/19/20 09:15 Urine WBC 6-10 /HPF (0-5) H 04/19/20 09:15 Urine WBC Clumps PRESENT 04/19/20 09:15 Ur Squamous Epith Cells FEW Squamous (<= Few) 04/19/20 09:15 Urine Bacteria Moderate /HPF (None Seen) H 04/19/20 09:15 Urine Culture Comments INDICATED 04/19/20 09:15 Nasal Adenovirus (PCR) NOT DETECTED 04/19/20 18:40 Nasal B. parapertussis DNA (PCR) NOT DETECTED 04/19/20 18:40 Nasal Coronavir 229E PCR NOT DETECTED 04/19/20 18:40 Nasal Coronavir HKU1 PCR NOT DETECTED 04/19/20 18:40 Nasal Coronavir NL63 PCR NOT DETECTED 04/19/20 18:40 Nasal Coronavir OC43 PCR NOT DETECTED 04/19/20 18:40 Nasal Enterovir/Rhinovir PCR NOT DETECTED 04/19/20 18:40 Nasal Influenza B PCR NOT DETECTED 04/19/20 18:40 Nasal Influenza A PCR NOT DETECTED 04/19/20 18:40 Nasal Parainfluen 1 PCR NOT DETECTED 04/19/20 18:40 Nasal Parainfluen 2 PCR NOT DETECTED 04/19/20 18:40 Nasal Parainfluen 3 PCR NOT DETECTED 04/19/20 18:40 Nasal Parainfluen 4 PCR NOT DETECTED 04/19/20 18:40 Nasal RSV (PCR) NOT DETECTED 04/19/20 18:40 Nasal Screen MRSA (PCR) POSITIVE (NEGATIVE) A* 04/19/20 22:40 Nasal B.pertussis DNA PCR NOT DETECTED 04/19/20 18:40 Nasal C.pneumoniae (PCR) NOT DETECTED 04/19/20 18:40 [place] Human Metapneumo PCR NOT DETECTED 04/19/20 18:40 Nasal M.pneumoniae (PCR) NOT DETECTED 04/19/20 18:40 Nasal SARS-CoV-2 (PCR) NOT DETECTED 12/15/20 18:40 Last Dose Date 10/23/19 04/23/20 16:09 Last Dose Time 610AM 04/23/20 16:09 Vancomycin Trough 18.7 ug/mL (10.0-20.0) 04/23/20 16:09 Blood Type A NEGATIVE 04/20/20 06:15 Antibody Screen NEGATIVE 04/20/20 06:15 Crossmatch See Detail 04/20/20 06:15 - Procedures Procedures: Procedures EXTRACTION OF BUTTOCK SKIN, EXTERNAL APPROACH (02/18/19) EXTRACTION OF L UP LEG SUBCU/FASCIA, PERC APPROACH (02/18/19) EXTRACTION OF LEFT FOOT SKIN, EXTERNAL APPROACH (02/18/19) EXTRACTION OF RIGHT FOOT SKIN, EXTERNAL APPROACH (02/18/19) INSERTION OF INFUSION DEV INTO SUP VENA CAVA, PERC APPROACH (02/18/19) Sepsis Event Note (H) - Evaluation Current Stage of Sepsis: Sepsis Possible source of Sepsis: positive: Skin/soft tissue - Sepsis Criteria Sepsis Criteria: Recorded Heart Rate greater than 90 bpm, Recorded Respiratory Rate greater than 20, WBC count greater than 10% bands, SBP less than 90 mmHg
--- NOTE | 2020-04-24 11:42 | XRAY Report ---
PROCEDURE: Chest 1 View X-Ray INDICATIONS: SOB TECHNIQUE: One view of the chest was acquired. COMPARISON: 04/19/2020 FINDINGS: Surgical changes and devices: Spinal fusion hardware is again seen unchanged from previous study.. Lungs and pleura: No pleural effusions or pneumothorax. Increased rhonchal vascular markings in bila teral hilar region are seen. Mild bronchial wall thickening is also noted. No definite focal infiltra te. Mediastinum: Mediastinal contours appear normal. Heart size is normal. Bones and chest wall: No suspicious bony lesions. Overlying soft tissues appear unremarkable. IMPRESSION: Finding may represent mild reactive airway disease such as bronchitis or asthma. No focal infiltrate. No pleural effusion or pneumothorax. Reviewed by: Duarte Singh MD on 04/24/2020 11:41 AM PST Approved by: Duarte Singh MD on 04/24/2020 11:41 AM PST Station ID: [id number]
--- NOTE | 2020-04-24 12:31 | PROVIDER PROGRESS NOTE ---
Progress Note Subjective Please see progress note from April 23, 2020. Continues to feel ill. Very tearful. Objective General Appearance: positive: No acute distress Eyes Bilateral: positive: Normal inspection ENT: positive: ENT inspection nml Neck: positive: Nml inspection Respiratory: positive: Chest non-tender, No respiratory distress, Breath sounds nml. negative: Wheezes, Rales, Rhonchi Cardiovascular: positive: Regular rate & rhythm Abdomen: positive: No distention, Other. negative: Guarding, Rebound Impression/Plan Please see progress note from April 23, 2020. Discussed with patient indication to proceed with exam under anesthesia to evaluate areas of vaginal ulceration and potential malignant process with multiple biopsies. We will consult gynecology and ask for their input. Patient should be n.p.o. after midnight. We will schedule for tomorrow.
[2020-04-24] MEDS ORDERED: WATER FOR INJECTION,STERILE 10 ML ONE (15:23)
[2020-04-24] MEDS: PROCHLORPERAZINE 10 MG/2 ML VIAL IVP PRN (17:44)
[2020-04-24] MEDS: MORPHINE 2 MG/ML CARPUJECT IVP PRN (22:10)
[2020-04-25] MEDS: metroNIDAZOLE 500 MG/100 ML 500 MG/100 ML BAG IV SCH ×3 (00:36→15:35)
[2020-04-25] MEDS: PROCHLORPERAZINE 10 MG/2 ML VIAL IVP PRN ×2 (00:44→09:03)
[2020-04-25] MEDS: SODIUM CHLORIDE FLUSH 0.9% 10 ML SYRINGE IVP SCH ×4 (02:13→21:37)
[2020-04-25] MEDS: LEVOTHYROXINE 25 MCG TABLET PO SCH (04:03)
[2020-04-25] MEDS ORDERED: SODIUM CHLORIDE 0.9% 500 ML IV ONE ×2 (04:31→18:01)
[2020-04-25] MEDS: ONDANSETRON 4 MG/2 ML VIAL IVP PRN ×2 (04:42→15:36)
[2020-04-25] MEDS: VANCOMYCIN INJ 1 GM in SODIUM CHLORIDE 0.9% 250 ML IV SCH ×2 (04:43→18:02)
[2020-04-25] MEDS: MORPHINE 2 MG/ML CARPUJECT IVP PRN ×3 (04:43→19:11)
[2020-04-25] MEDS: FERROUS GLUCONATE 324 MG TABLET PO SCH (07:59)
[2020-04-25] MEDS: MULTIVITAMIN W/MINERALS TABLET PO SCH (07:59)
--- NOTE | 2020-04-25 08:20 | PROVIDER PROGRESS NOTE ---
Assessment/Plan - Problem List (1) MRSA bacteremia Assessment/Plan: Patient has PICC line. Continue IV vancomycin. Duration of treatment will not be determined by TEST EXAMINER input and general surgery input and recommendations. Contact precautions are in place in her room. (2) Sacral decubitus ulcer Qualifiers: Pressure injury stage: stage 3 Qualified Code(s): L89.153 - Pressure ulcer of sacral region, stage 3 Assessment/Plan: Patient is a Stephens to help with healing. She is currently constipated therefore she has not had a bowel movement to soil her skin surface. Plan will be determined by TEST EXAMINER and general surgery going forward (3) Pelvic cellulitis in female Assessment/Plan: Continue with IV antibiotics. Plan will be determined by TEST EXAMINER and general surgery going forward (4) Decubitus ulcer, heel Qualifiers: Pressure injury stage: unstageable Laterality: unspecified laterality Qualified Code(s): L89.600 - Pressure ulcer of unspecified heel, unstageable Assessment/Plan: This was debrided at bedside several days ago. There was excessive bleeding the night after debridement which has now stabilized. Continue with wound dressing changes as ordered by general surgeon, Dr. Foster (5) Chronic osteomyelitis, other specified site Assessment/Plan: As per history (6) Anemia Qualifiers: Anemia type: unspecified type Qualified Code(s): D64.9 - Anemia, unspecified Assessment/Plan: Continue with replacement. Follow CBC daily. Transfuse if hemoglobin under 7 (7) Paraplegia following spinal cord injury Assessment/Plan: As per history (8) Neurogenic bladder Assessment/Plan: She was self cathing herself at home. Here she has a Stephens catheter in place (9) Chronic pain Qualifiers: Chronic pain type: chronic pain syndrome Qualified Code(s): G89.4 - Chronic pain syndrome Assessment/Plan: She has sensation from the thighs upward, so she can feel the sacral ulcers and pelvic are. She has no overall complaints of pain when I see her, or that her RN reports to me. Continue with pain meds as needed (10) Hypothyroidism Assessment/Plan: Her TSH was adequate at 1.71. Continue with her home dose of thyroid replacement (11) Anxiety Assessment/Plan: She uses cannabis smoking to control her anxiety when at home. She does not wish to be on an SSRI. Here we have needed to use Ativan in tiny doses. 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 Assessment/Plan: She had nasal treatment done at the time of admission - Current Meds Current Meds: Current Medications Generic Name Dose Route Start Last Admin Trade Name Freq PRN Reason Stop Dose Admin Hydrocodone Bitart/Acetaminophen 2 tab 04/20/20 18:28 04/24/20 06:50 Hydrocod/Acetam 5/325 Mg Tablet PO 2 tab Q4HR PRN Administration PAIN Alcohol 1 amp 04/20/20 09:00 04/24/20 21:32 Ethyl Alcohol 62% Swab Ampule CONNER 1 amp BID VANE Administration Ascorbic Acid 500 mg 04/22/20 08:00 04/24/20 09:37 Ascorbic Acid Chew 500 Mg Tablet PO 500 mg DAILY VANE Administration Benzonatate 100 mg 04/22/20 06:57 04/22/20 08:23 Benzonatate 100 Mg Capsule PO 100 mg TID PRN Administration Cough Docusate Sodium 250 - 500 mg 04/22/20 09:00 04/24/20 09:37 Docusate Sodium 250 Mg Capsule PO 250 mg DAILY VANE Administration Ferrous Gluconate 324 mg 04/22/20 09:00 04/25/20 07:59 Ferrous Gluconate 324 Mg Tablet PO Not Given DAILYWM VANE Heparin Sodium (Porcine) 5,000 unit 04/19/20 21:00 04/24/20 21:33 Heparin 5,000 Unit/Ml Vial SUBQ Not Given BID VANE Cefepime HCl 2 gm/ Sodium 100 mls @ 200 mls/hr 04/19/20 21:00 04/24/20 22:05 Chloride IV Infused BID VANE Infusion Metronidazole 500 mg in 100 mls @ 100 mls/hr 04/20/20 08:00 04/25/20 07:54 Flagyl 500 Mg/100 Ml IV 100 mls/hr Q8H VANE Administration Vancomycin HCl 1 gm/ Sodium 250 mls @ 167 mls/hr 04/21/20 17:00 04/25/20 06:15 Chloride IV Infused Q12H VANE Infusion Levothyroxine Sodium 50 mcg 04/20/20 07:00 04/25/20 04:03 Levothyroxine 25 Mcg Tablet PO Not Given QDAC VANE Morphine Sulfate 2 mg 04/24/20 21:51 04/25/20 04:43 Morphine 2 Mg/Ml Carpuject IVP 2 mg Q6HR PRN Administration PAIN Multivitamins/Minerals 1 tab 04/22/20 08:00 04/25/20 07:59 Multivitamin W/Minerals Tablet PO Not Given DAILYWM VANE Ondansetron HCl 4 mg 04/19/20 20:02 04/25/20 04:42 Ondansetron 4 Mg/2 Ml Vial IVP 4 mg Q6HR PRN Administration Nausea / Vomiting Polyethylene Glycol 17 gm 04/24/20 09:00 04/24/20 09:38 Polyethylene Glycol 3350 17 Gm Packet PO 17 gm DAILY VANE Administration Prochlorperazine Edisylate 10 mg 04/24/20 17:34 04/25/20 00:44 Prochlorperazine 10 Mg/2 Ml Vial IVP 10 mg Q6HR PRN Administration Nausea / Vomiting Senna 8.6 - 17.2 mg 04/24/20 09:00 04/24/20 09:37 Senna 8.6 Mg Tablet PO 8.6 mg DAILY VANE Administration Sodium Chloride 10 ml 04/19/20 20:02 04/19/20 22:32 Sodium Chloride Flush 0.9% 10 Ml Syringe IVP 10 ml PRN PRN Administration NEEDED PER PROVIDER ORDERS Sodium Chloride 10 ml 04/20/20 01:00 04/25/20 02:13 Sodium Chloride Flush 0.9% 10 Ml Syringe IVP Not Given 0100,0900,1700 VANE - Lab Result Fish Bone Diagrams: 04/24/20 05:28 04/24/20 05:28 - Additional Planning My Orders: My Active Orders 04/24/20 09:00 Senna [Senokot] 8.6 - 17.2 mg PO DAILY polyethylene glycoL 3350 [Miralax] 17 gm PO DAILY 04/24/20 10:51 IS [Incentive Spirometry - RT] [RC] .TID 04/24/20 17:34 Prochlorperazine Inj [Compazine Inj] 10 mg IVP Q6HR PRN 04/25/20 Consult [Gynecology Consult] [CONS] Routine 04/25/20 08:00 Echo Transthoracic Complete [ECHO] Routine Subjective - Subjective Patient Reports: No Complaints (except she is irritated that she does not know when her surgery will be done today) Objective Vital Signs: Vital Signs - 24 hr 04/24/20 04/24/20 04/25/20 09:58 16:00 00:40 Temperature 36.9 C 36.4 C L Heart Rate [ 75 Brachial] Heart Rate [ 85 Radial] Respiratory 17 17 17 Rate Blood Pressure 156/65 H 146/69 H [Right Brachial artery] O2 Saturation 100 98 96 04/25/20 08:00 Temperature 36.5 C Heart Rate [ Brachial] Heart Rate [ 88 Radial] Respiratory 18 Rate Blood Pressure 131/86 H [Right Brachial artery] O2 Saturation 96 Oxygen O2 Source Room air I&O (Last 24 Hrs): Intake and Output Totals x24h 04/23/20 04/24/20 04/25/20 23:59 23:59 23:59 Intake Total 2080 1220 850 Output Total 5700 3350 1450 Balance -3620 -2130 -600 General: Alert HEENT: Mucous membr. moist/pink Neck: Supple, No JVD Neuro: Other (paraplegia) Cardiovascular: Regular rate Respiratory: No respiratory distress Abdomen: Soft Genitourinary: Other (Stephens in place , sacral and perineal wounds as at admission) Extremities: Other (L heel in bandage, mild pedal edema bilaterally.) - Results Results: Laboratory Results WBC 8.9 x10^3/uL (4.8-10.8) 04/24/20 05:28 RBC 3.47 10^6/uL (4.20-5.40) L 04/24/20 05:28 Hgb 8.6 g/dL (12.0-16.0) L 04/24/20 05:28 Hct 29.0 % (37.0-47.0) L 04/24/20 05:28 MCV 83.6 fL (81.0-99.0) 04/24/20 05:28 MCH 24.8 pg (27.0-31.0) L 04/24/20 05:28 MCHC 29.7 g/dL (32.0-36.0) L 04/24/20 05:28 RDW 18.7 % (12.0-15.0) H 04/24/20 05:28 Plt Count 364 10^3/uL (130-450) 04/24/20 05:28 MPV 9.5 fL (7.9-10.8) 04/24/20 05:28 Neut # (Auto) 6.1 10^3/uL (1.5-6.6) 04/24/20 05:28 Lymph # (Auto) 1.8 10^3/uL (1.5-3.5) 04/24/20 05:28 [place] # (Auto) 0.7 10^3/uL (0.0-1.0) 04/24/20 05:28 Eos # (Auto) 0.2 10^3/uL (0.0-0.7) 04/24/20 05:28 Baso # (Auto) 0.0 10^3/uL (0.0-0.1) 04/24/20 05:28 Absolute Nucleated RBC 0.00 x10^3/uL 04/24/20 05:28 Total Counted 100 04/19/20 15:00 Band Neuts % (Manual) 10 % (0-10) 04/19/20 15:00 Abnorm Lymph % (Manual) 0 % 04/19/20 15:00 Nucleated RBC % 0.0 /100WBC 04/24/20 05:28 Neutrophils # (Manual) 30.3 10^3/uL (1.5-6.6) H 04/19/20 15:00 Lymphocytes # (Manual) 0.3 10^3/uL (1.5-3.5) L 04/19/20 15:00 Monocytes # (Manual) 1.3 10^3/uL (0.0-1.0) H 04/19/20 15:00 Eosinophils # (Manual) 0.0 10^3/uL (0-0.7) 04/19/20 15:00 Basophils # (Manual) 0.0 10^3/uL (0-0.1) 04/19/20 15:00 Differential Comment MANUAL DIFFERENTIAL 04/19/20 15:00 Platelet Estimate NORMAL (130-450,000) (NORMAL) 04/19/20 15:00 Platelet Morphology NORMAL APPEARANCE (NORMAL) 04/19/20 15:00 RBC Morph Micro Appear 2+ HYPOCHROMASIA (NORMAL) 04/19/20 15:00 Sodium 139 mmol/L (135-145) 04/24/20 05:28 Potassium 3.8 mmol/L (3.5-5.0) 04/24/20 05:28 Chloride 105 mmol/L (101-111) 04/24/20 05:28 Carbon Dioxide 27 mmol/L (21-32) 04/24/20 05:28 Anion Gap 7.0 (6-13) 04/24/20 05:28 BUN 11 mg/dL (6-20) 04/24/20 05:28 Creatinine 0.4 mg/dL (0.4-1.0) 04/24/20 05:28 Estimated GFR (MDRD) 161 (>89) 04/24/20 05:28 Glucose 84 mg/dL (70-100) 04/24/20 05:28 Lactic Acid 1.3 mmol/L (0.5-2.2) 04/19/20 15:00 Calcium 7.9 mg/dL (8.5-10.3) L 04/24/20 05:28 Iron < 6 ug/dL (28-170) L 04/22/20 05:35 TIBC 168 ug/dL (250-450) L 04/22/20 05:35 Transferrin 120 mg/dL (192-382) L 04/22/20 05:35 Total Bilirubin 2.1 mg/dL (0.2-1.0) H 04/19/20 15:00 AST 24 IU/L (10-42) 04/19/20 15:00 ALT 26 IU/L (10-60) 04/19/20 15:00 Alkaline Phosphatase 62 IU/L (42-121) 04/19/20 15:00 Total Protein 7.3 g/dL (6.7-8.2) 04/19/20 15:00 Albumin 2.5 g/dL (3.2-5.5) L 04/19/20 15:00 Globulin 4.8 g/dL (2.1-4.2) H 04/19/20 15:00 Albumin/Globulin Ratio 0.5 (1.0-2.2) L 04/19/20 15:00 Vitamin B12 1084 pg/mL (180-914) H 04/22/20 05:35 Folate 13.60 ng/mL (5.90 - >24.8) 04/22/20 05:35 TSH 1.71 uIU/mL (0.34-5.60) 04/20/20 04:55 Cortisol 12.2 ug/dL 04/20/20 04:55 Urine Color YELLOW 04/19/20 09:15 Urine Clarity CLEAR (CLEAR) 04/19/20 09:15 Urine pH 5.0 PH (5.0-7.5) 04/19/20 09:15 Ur Specific [place] 1.010 (1.002-1.030) 04/19/20 09:15 Urine Protein NEGATIVE mg/dL (NEGATIVE) 04/19/20 09:15 Urine Glucose (UA) NEGATIVE mg/dL (NEGATIVE) 04/19/20 09:15 Urine Ketones NEGATIVE mg/dL (NEGATIVE) 04/19/20 09:15 Urine Occult Blood NEGATIVE (NEGATIVE) 04/19/20 09:15 Urine Nitrite NEGATIVE (NEGATIVE) 04/19/20 09:15 Urine Bilirubin NEGATIVE (NEGATIVE) 04/19/20 09:15 Urine Urobilinogen 1 (NORMAL) E.U./dL (NORMAL) 04/19/20 09:15 Ur Leukocyte Esterase TRACE (NEGATIVE) H 04/19/20 09:15 Urine RBC 0-5 /HPF (0-5) 04/19/20 09:15 Urine WBC 6-10 /HPF (0-5) H 04/19/20 09:15 Urine WBC Clumps PRESENT 04/19/20 09:15 Ur Squamous Epith Cells FEW Squamous (<= Few) 04/19/20 09:15 Urine Bacteria Moderate /HPF (None Seen) H 04/19/20 09:15 Urine Culture Comments INDICATED 04/19/20 09:15 Nasal Adenovirus (PCR) NOT DETECTED 04/19/20 18:40 Nasal B. parapertussis DNA (PCR) NOT DETECTED 04/19/20 18:40 Nasal Coronavir 229E PCR NOT DETECTED 04/19/20 18:40 Nasal Coronavir HKU1 PCR NOT DETECTED 04/19/20 18:40 Nasal Coronavir NL63 PCR NOT DETECTED 04/19/20 18:40 Nasal Coronavir OC43 PCR NOT DETECTED 04/19/20 18:40 Nasal Enterovir/Rhinovir PCR NOT DETECTED 04/19/20 18:40 Nasal Influenza B PCR NOT DETECTED 04/19/20 18:40 Nasal Influenza A PCR NOT DETECTED 04/19/20 18:40 Nasal Parainfluen 1 PCR NOT DETECTED 04/19/20 18:40 Nasal Parainfluen 2 PCR NOT DETECTED 04/19/20 18:40 Nasal Parainfluen 3 PCR NOT DETECTED 04/19/20 18:40 Nasal Parainfluen 4 PCR NOT DETECTED 04/19/20 18:40 Nasal RSV (PCR) NOT DETECTED 04/19/20 18:40 Nasal Screen MRSA (PCR) POSITIVE (NEGATIVE) A* 04/19/20 22:40 Nasal B.pertussis DNA PCR NOT DETECTED 04/19/20 18:40 Nasal C.pneumoniae (PCR) NOT DETECTED 04/19/20 18:40 [place] Human Metapneumo PCR NOT DETECTED 04/19/20 18:40 Nasal M.pneumoniae (PCR) NOT DETECTED 04/19/20 18:40 Nasal SARS-CoV-2 (PCR) NOT DETECTED 04/19/20 18:40 Last Dose Date 10/23/19 04/23/20 16:09 Last Dose Time 610AM 04/23/20 16:09 Vancomycin Trough 18.7 ug/mL (10.0-20.0) 04/23/20 16:09 Blood Type A NEGATIVE 04/20/20 06:15 Antibody Screen NEGATIVE 04/20/20 06:15 Crossmatch See Detail 04/20/20 06:15 - Procedures Procedures: Procedures EXTRACTION OF BUTTOCK SKIN, EXTERNAL APPROACH (02/18/19) EXTRACTION OF L UP LEG SUBCU/FASCIA, PERC APPROACH (02/18/19) EXTRACTION OF LEFT FOOT SKIN, EXTERNAL APPROACH (02/18/19) EXTRACTION OF RIGHT FOOT SKIN, EXTERNAL APPROACH (02/18/19) INSERTION OF INFUSION DEV INTO SUP VENA CAVA, PERC APPROACH (02/18/19) Sepsis Event Note (H) - Evaluation Current Stage of Sepsis: Sepsis Possible source of Sepsis: positive: Skin/soft tissue - Sepsis Criteria Sepsis Criteria: Recorded Heart Rate greater than 90 bpm, Recorded Respiratory Rate greater than 20, WBC count greater than 10% bands, SBP less than 90 mmHg
[2020-04-25] MEDS: CEFEPIME 2 GM in SODIUM CHLORIDE 0.9% MINIBAG 100 ML IV SCH ×2 (09:03→21:37)
[2020-04-25] MEDS: ethyl alcohoL 62% SWAB AMPULE NAS SCH ×2 (09:03→21:49)
[2020-04-25] MEDS: HEPARIN 5,000 UNIT/ML VIAL SUBQ SCH ×2 (09:04→21:48)
[2020-04-25] MEDS: polyethylene glycoL 3350 17 GM PACKET PO SCH (09:04)
[2020-04-25] MEDS: DOCUSATE SODIUM 250 MG CAPSULE PO SCH (09:04)
[2020-04-25] MEDS: ASCORBIC ACID CHEW 500 MG TABLET PO SCH (09:04)
[2020-04-25] MEDS: SENNA 8.6 MG TABLET PO SCH (09:04)
--- NOTE | 2020-04-25 11:08 | ANESTHESIA ---
Pre-Anesthesia VS, & Labs - Diagnosis Diagnosis 1. Urosepsis 2. Neurogenic bladder 3. Sacral and perineal decubitus ulcers with chronic osteomyelitis 4. Bilateral heel ulcers - stage 4 on the right and not stageable on the left. - Procedure EUA, Vaginal biopsy Vital Signs: Temp Pulse Resp BP Pulse Ox 36.5 C 88 18 131/86 H 96 04/25/20 08:00 04/25/20 08:00 04/25/20 08:00 04/25/20 08:00 04/25/20 08:00 Height: 5 ft 7 in Weight (kg): 64 kg Body Mass Index: 22.1 BMI Classification: Healthy weight - NPO >8 hours - Is Patient ?: No - Lab Results Current Lab Results: Laboratory Tests 04/24/20 05:28: Sodium 139, Potassium 3.8, Chloride 105, Carbon Dioxide 27, Anion Gap 7.0, BUN 11, Creatinine 0.4, Estimated GFR (MDRD) 161, Glucose 84, Aden cium 7.9 L 04/24/20 05:28: WBC 8.9, RBC 3.47 L, Hgb 8.6 L, Hct 29.0 L, MCV 83.6, MCH 24.8 L , MCHC 29.7 L, RDW 18.7 H, Plt Count 364, MPV 9.5, Neut # (Auto) 6.1, Lymph # (Auto) 1.8, [place] # (Auto) 0.7, Eos # (Auto) 0.2, Baso # (Auto) 0.0, Absolute Nucleated RBC 0.00, Nucleated RBC % 0.0 04/23/20 16:09: Last Dose Date 10/23/19, Last Dose Time 610AM, Vancomycin Trough 18.7 04/23/20 05:19: Sodium 140, Potassium 4.0, Chloride 107, Carbon Dioxide 28, Anion Gap 5.0 L, BUN 15, Creatinine 0.3 L, Estimated GFR (MDRD) 225, Glucose 106 H, Calcium 7.9 L 04/23/20 05:19: WBC 8.2, RBC 3.50 L, Hgb 8.5 L, Hct 29.1 L, MCV 83.1, MCH 24.3 L , MCHC 29.2 L, RDW 18.3 H, Plt Count 363, MPV 9.6, Neut # (Auto) 5.8, Lymph # (Auto) 1.6, [place] # (Auto) 0.5, Eos # (Auto) 0.2, Baso # (Auto) 0.0, Absolute Nucleated RBC 0.00, Nucleated RBC % 0.0 04/22/20 14:07: Hgb 8.1 L, Hct 27.2 L 04/22/20 05:35: Vitamin B12 1084 H, Folate 13.60 04/22/20 05:35: Sodium 140, Potassium 3.3 L, Chloride 109, Carbon Dioxide 24, Anion Gap 7.0, BUN 12, Creatinine 0.4, Estimated GFR (MDRD) 161, Glucose 88, Calcium 7.4 L, Iron < 6 L, TIBC 168 L, Transferrin 120 L 04/22/20 05:35: WBC 8.0, RBC 3.23 L, Hgb 7.8 L, Hct 26.7 L, MCV 82.7, MCH 24.1 L , MCHC 29.2 L, RDW 17.3 H, Plt Count 324, MPV 9.1, Neut # (Auto) 5.7, Lymph # (Auto) 1.5, [place] # (Auto) 0.5, Eos # (Auto) 0.2, Baso # (Auto) 0.0, Absolute Nucleated RBC 0.00, Nucleated RBC % 0.0 04/21/20 10:00: Last Dose Date 04/20/20, Last Dose Time 0241, Vancomycin Trough 27.2 H* 04/21/20 04:35: Sodium 141, Potassium 3.4 L, Chloride 110, Carbon Dioxide 22, Anion Gap 9.0, BUN 8, Creatinine 0.3 L, Estimated GFR (MDRD) 225, Glucose 88, Calcium 7.5 L 04/21/20 04:35: WBC 11.0 H, RBC 3.22 L, Hgb 7.8 L, Hct 26.7 L, MCV 82.9, MCH 24.2 L, MCHC 29.2 L, RDW 16.9 H, Plt Count 285, MPV 9.3, Neut # (Auto) 9.2 H, Lymph # (Auto) 1.1 L, [place] # (Auto) 0.6, Eos # (Auto) 0.1, Baso # (Auto) 0.0, Absolute Nucleated RBC 0.00, Nucleated RBC % 0.0 04/20/20 06:15: Blood Type A NEGATIVE, Antibody Screen NEGATIVE, Crossmatch See Detail 04/20/20 04:55: TSH 1.71 04/20/20 04:55: Cortisol 12.2 04/20/20 04:55: Sodium 139, Potassium 4.2, Chloride 110, Carbon Dioxide 24, Anion Gap 5.0 L, BUN 9, Creatinine 0.4, Estimated GFR (MDRD) 161, Glucose 89, Calcium 7.3 L 04/20/20 04:55: WBC 17.5 H, RBC 2.74 L, Hgb 6.5 L*, Hct 22.4 L, MCV 81.8, MCH 23.7 L, MCHC 29.0 L, RDW 16.5 H, Plt Count 262, MPV 9.3, Neut # (Auto) 14.8 H, Lymph # (Auto) 1.7, [place] # (Auto) 1.0, Eos # (Auto) 0.0, Baso # (Auto) 0.0, Absolute Nucleated RBC 0.00, Nucleated RBC % 0.0 04/19/20 15:00: Lactic Acid 1.3 04/19/20 15:00: Sodium 134 L, Potassium 3.1 L, Chloride 97 L, Carbon Dioxide 27, Anion Gap 10.0, BUN 11, Creatinine 0.5, Estimated GFR (MDRD) 125, Glucose 133 H, Calcium 8.2 L, Total Bilirubin 2.1 H, AST 24, ALT 26, Alkaline Phosphatase 62, Total Protein 7.3, Albumin 2.5 L, Globulin 4.8 H, Albumin/Globulin Ratio 0.5 L 04/19/20 15:00: WBC 31.9 H, RBC 3.40 L, Hgb 7.9 L, Hct 26.8 L, MCV 78.8 L, MCH 23.2 L, MCHC 29.5 L, RDW 16.5 H, Plt Count 367, MPV 9.4, Neut # (Auto) Not Reportable, Lymph # (Auto) Not Reportable, [place] # (Auto) Not Reportable, Eos # (Auto) Not Reportable, Baso # (Auto) Not Reportable, Absolute Nucleated RBC Not Reportable, Total Counted 100, Band Neuts % (Manual) 10, Abnorm Lymph % (Manual) 0, Nucleated RBC % Not Reportable, Neutrophils # (Manual) 30.3 H, Lymphocytes # (Manual) 0.3 L, Monocytes # (Manual) 1.3 H, Eosinophils # (Manual) 0.0, Basophils # (Manual) 0.0, Differential Comment MANUAL DIFFERENTIAL, Platelet Estimate NORMAL (130-450,000), Platelet Morphology NORMAL APPEARANCE, RBC Morph Micro Appear 2+ HYPOCHROMASIA Fish Bones: 04/24/20 05:28 04/24/20 05:28 Home Medications and Allergies Home Medications: Ambulatory Orders Levothyroxine Sodium [Levothyroxine] 50 mcg PO DAILY 04/20/20 Morphine Sulfate [Luly] 20 mg PO BID 04/21/20 Active Medications Hydrocodone Bitart/Acetaminophen (Hydrocod/Acetam 5/325 Mg Tablet) 2 tab PO Q4HR PRN PRN Reason: PAIN Last Admin: 04/24/20 06:50 Dose: 2 tab Documented by: Alcohol (Ethyl Alcohol 62% Swab Ampule) 1 amp [place]NER BID [facility] Last Admin: 04/25/20 09:03 Dose: 1 amp Documented by: Ascorbic Acid (Ascorbic Acid Chew 500 Mg Tablet) 500 mg PO DAILY [facility] Last Admin: 04/25/20 09:04 Dose: Not Given Documented by: Benzonatate (Benzonatate 100 Mg Capsule) 100 mg PO TID PRN PRN Reason: Cough Last Admin: 04/22/20 08:23 Dose: 100 mg Documented by: Diphenhydramine HCl (Diphenhydramine 25 Mg Capsule) 25 mg PO QPM PRN PRN Reason: Insomnia Docusate Sodium (Docusate Sodium 250 Mg Capsule) 250 - 500 mg PO DAILY [facility] Last Admin: 04/25/20 09:04 Dose: Not Given Documented by: Ferrous Gluconate (Ferrous Gluconate 324 Mg Tablet) 324 mg PO DAILYWM [facility] Last Admin: 04/25/20 07:59 Dose: Not Given Documented by: Heparin Sodium (Porcine) (Heparin 5,000 Unit/Ml Vial) 5,000 unit SUBQ BID [facility] Last Admin: 04/25/20 09:04 Dose: Not Given Documented by: Cefepime HCl 2 gm/ Sodium (Chloride) 100 mls @ 200 mls/hr IV BID [facility] Last Infusion: 04/25/20 09:40 Dose: Infused Documented by: Metronidazole (Flagyl 500 Mg/100 Ml) 500 mg in 100 mls @ 100 mls/hr IV Q8H [facility] Last Infusion: 04/25/20 09:04 Dose: Infused Documented by: Vancomycin HCl 1 gm/ Sodium (Chloride) 250 mls @ 167 mls/hr IV Q12H [facility] Last Infusion: 04/25/20 06:15 Dose: Infused Documented by: Levothyroxine Sodium (Levothyroxine 25 Mcg Tablet) 50 mcg PO QDAC [facility] Last Admin: 04/25/20 04:03 Dose: Not Given Documented by: Morphine Sulfate (Morphine 2 Mg/Ml Carpuject) 2 mg IVP Q6HR PRN PRN Reason: PAIN Last Admin: 04/25/20 04:43 Dose: 2 mg Documented by: Multivitamins/Minerals (Multivitamin W/Minerals Tablet) 1 tab PO DAILYWM [facility] Last Admin: 04/25/20 07:59 Dose: Not Given Documented by: Ondansetron HCl (Ondansetron 4 Mg/2 Ml Vial) 4 mg IVP Q6HR PRN PRN Reason: Nausea / Vomiting Last Admin: 04/25/20 04:42 Dose: 4 mg Documented by: Polyethylene Glycol (Polyethylene Glycol 3350 17 Gm Packet) 17 gm PO DAILY [facility] Last Admin: 04/25/20 09:04 Dose: Not Given Documented by: Prochlorperazine Edisylate (Prochlorperazine 10 Mg/2 Ml Vial) 10 mg IVP Q6HR PRN PRN Reason: Nausea / Vomiting Last Admin: 04/25/20 09:03 Dose: 10 mg Documented by: Senna (Senna 8.6 Mg Tablet) 8.6 - 17.2 mg PO DAILY [facility] Last Admin: 04/25/20 09:04 Dose: Not Given Documented by: Sodium Chloride (Sodium Chloride Flush 0.9% 10 Ml Syringe) 10 ml IVP PRN PRN PRN Reason: NEEDED PER PROVIDER ORDERS Last Admin: 04/19/20 22:32 Dose: 10 ml Documented by: Sodium Chloride (Sodium Chloride Flush 0.9% 10 Ml Syringe) 10 ml IVP 0100,0900,1700 [facility] Last Admin: 04/25/20 09:04 Dose: 10 ml Documented by: Aspirin EC [Ecotrin] 325 mg PO DAILY PRN 10/07/12 Multivitamin [Multivitamins] 1 tab PO DAILY 10/07/12 Sennosides [Senna] 8.6 mg PO DAILY 10/07/12 Oxybutynin Chloride 10 mg PO TID 02/19/19 Levothyroxine Sodium [Levothyroxine] 50 mcg PO DAILY 04/20/20 Morphine Sulfate [Luly] 20 mg PO BID 04/21/20 Allergies/Adverse Reactions: Allergies Allergy/AdvReac Type Severity Reaction Status Date / Time Penicillins Allergy Mild Rash Verified 04/19/20 14:37 chlorhexidine Allergy Unknown Itching Verified 04/19/20 14:37 gabapentin Allergy Unknown Verified 04/19/20 14:37 linezolid Allergy Nausea Verified 04/19/20 14:37 Anes History & Medical History - Anesthetic History Anesthesia Complications: reports: No previous complications - Medical History Cardiovascular: reports: Deep vein thrombosis Pulmonary: reports: None Gastrointestinal: reports: Hepatitis, Cholelithiasis Urinary: reports: Retention (has in past self cathed 3x a day; problem getting new supplies and admits unable to do; has known neurogenic bladder), Kidney stones, Other Neuro: reports: Head injury, Migraines, Seizure disorder Musculoskeletal: reports: Osteoarthritis, Paraplegia, Fatigue, Chronic back pain, Other (wheelchair bound) Endocrine/Autoimmune: reports: HyPOthyroidism Blood Disorders: reports: Anemia Skin: reports: Other (assisted pressure ulcers/osteomylitis) Smoking Status: Former smoker Psychosocial: reports: Depression, Anxiety History of Cancer?: No - Surgical History Eyes Ears Nose Throat (EENT): Tonsil/Adenoidectomy Gynecologic: Tubal ligation Orthopedic: Spine surgery Dermatologic: Skin grafts Exam General: Alert, Oriented x3, Cooperative, No acute distress Dental: Poor dentition Mouth Openin Fingerbreadth Neck Mobility: Normal Mallampati classification: II Thyromental Distance: 4-6 cm Mental/Cognitive Status: Alert/Oriented X3, Normal for patient, Lethargic Plan Anesthesia Type: General, MAC Consent for Procedure(s) Verified and Reviewed: Yes Code Status: Attempt Resuscitation ASA classification: 3-Severe systemic disease Is this case an emergency?: No
[2020-04-25] MEDS ORDERED: MIDAZOLAM 2 MG/2 ML VIAL ONE (14:50)
[2020-04-25] MEDS ORDERED: fentaNYL 100 MCG/2 ML VIAL ONE (14:51)
[2020-04-25] MEDS ORDERED: PROPOFOL 200 MG/20 ML VIAL IVP ONE ×3 (14:51→16:57)
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
[2020-04-25] MEDS ORDERED: SILVER NITRATE APPLICATOR TOP ONE (15:38)
[2020-04-25] MEDS ORDERED: KETAMINE 500 MG/10 ML VIAL ONE (16:20)
[2020-04-25] MEDS ORDERED: SODIUM CHLORIDE 0.9% 10 ML ONE (16:20)
--- NOTE | 2020-04-25 17:24 | ANESTHESIA POST OP EVALUATION ---
Anesthesia Post Eval - Post Anesthesia Eval Vitals: Last Vital Signs Temp 36.5 C 04/25/20 16:12 Pulse 80 04/25/20 16:12 Resp 16 04/25/20 16:12 BP 131/86 H 04/25/20 08:00 Pulse Ox 96 04/25/20 16:12 CV Function Including HR & BP: positive: Stable Pain Control: positive: Satisfactory Nausea & Vomiting: positive: Negative Mental Status: positive: Baseline Respiratory Status: Airway Patent Hydration Status: Satisfactory Anesthesia Complications: positive: None
--- NOTE | 2020-04-25 17:35 | OPERATIVE REPORT ---
Operative Report - General Admit Date: 04/19/20 Procedure Date: 04/25/20 Planned Procedure: 1. Exam under anesthesia 2. Rigid proctosigmoidoscopy 3. Disimpaction 4. Biopsy of perineum, multiple 5. Pelvic exam, per gynecology 6. Pap smear, per gynecology 7. Possible debridement Pre-Op Diagnosis: Paraplegia, decubiti, vaginal mass, osteomyelitis, MRSA SEPSIS, Abd pain Procedure Performed: 1. Exam under anesthesia 2. Rigid proctosigmoidoscopy 3. Disimpaction, fecal 4. Biopsy of right perineal decubitus ulcer 5. Debridement of right perineal decubitus ulceration 6. Pulse lavage of right perineal decubitus ulceration 7. Pelvic exam and Pap smear, per gynecology 8. 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 Extensive biopsy of left vaginal lesion/mass Post Op Diagnosis: Same, extensive tracking wounds with associated concerns for masses - Procedure Note Primary Surgeon: Ramona Secondary Surgeon: Vel Anesthesia Provider: Teresa Anesthesia Technique: MAC Pathology: Specimens: 1. Right perineal wound aerobic and anaerobic culture 2. Right perineal wound pathology 3. Left perineal wound, external opening 4. Left posterior vaginal biopsy, mass 5. Left medial vaginal biopsy, mass 6. Internal opening, vagina, left perineal fistulous communication Drain/Tube Type: Other (1. Left perineal/vaginal fistula seton using [facility] 2. Right perineal decubitus packed with 1 inch iodoform 3. Left vaginal wound placed for extensive Surgicel and achieved for hemostasis with Bovie electrocautery) Indications: 1. MRSA bacteremia/sepsis 2. Multiple perineal wounds, tracking sinuses, amongst others 3. Complicated history, poor historian, concern for prior rectovaginal fistula by report from palliative care 4. See surgical consultation and EMR notes Findings: 1. Rigid proctosigmoidoscopy: Normal rectum and rectosigmoid with no ulcerations masses or concerns for fistulous communication with the perineum or vaginal cavity, large stool burden decompressed and disimpacted without complication. 3. Disimpaction, fecal: Both digital and proctoscopic cleared to the rectosigmoid without complication. 4. 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 This wound tracked approximately 8 to 10 cm curvilinearly. Opening was 4 cm x 3 cm. This was packed with iodoform packing strip 1 inch. This area was debrided and performed for pulse lavage. 5. Debridement of right perineal decubitus ulceration: see above. 6. Pulse lavage of right perineal decubitus ulceration: see above. 7. Pelvic exam and Pap smear, per gynecology: Per Dr. Crowder, however no significant pathologic findings other than within the left vaginal canal, see below. 8. Placement of seton around left peroneal to vagina fistula, along with biopsy of external opening: Left perineal to vaginal fistula overlying area of dense fibrous tissue for which seton was placed, external opening biopsied for tissue pathology and diagnosis 9. Extensive biopsy of left vaginal lesion/mass: Multiple biopsies taken from the left vaginal masslike area, this area was large cavitating with no organized architecture, internal opening portion of the above listed fistula was biopsied independent with multiple other biopsies taken and sent for permanent pathology. Complications: NONE - Other Other Information/Narrative: Final operative report pending.
[2020-04-25] MEDS: SODIUM CHLORIDE FLUSH 0.9% 10 ML SYRINGE IVP PRN (18:04)
[2020-04-26] MEDS: metroNIDAZOLE 500 MG/100 ML 500 MG/100 ML BAG IV SCH ×2 (00:35→08:26)
[2020-04-26] MEDS: SODIUM CHLORIDE FLUSH 0.9% 10 ML SYRINGE IVP SCH ×2 (00:36→01:20)
[2020-04-26] MEDS: MORPHINE 2 MG/ML CARPUJECT IVP PRN ×4 (01:20→21:30)
[2020-04-26] MEDS: VANCOMYCIN INJ 1 GM in SODIUM CHLORIDE 0.9% 250 ML IV SCH ×2 (04:41→17:02)
[2020-04-26] MEDS: HYDROcod/ACETAM 5/325 MG TABLET PO PRN ×2 (04:42→12:32)
[2020-04-26] MEDS: SODIUM CHLORIDE FLUSH 0.9% 10 ML SYRINGE IVP PRN ×2 (04:44→04:53)
[2020-04-26] MEDS: ONDANSETRON 4 MG/2 ML VIAL IVP PRN ×2 (04:53→10:47)
[2020-04-26] MEDS: LEVOTHYROXINE 25 MCG TABLET PO SCH (06:30)
[2020-04-26] MEDS: ASCORBIC ACID CHEW 500 MG TABLET PO SCH (08:25)
[2020-04-26] MEDS: FERROUS GLUCONATE 324 MG TABLET PO SCH (08:25)
[2020-04-26] MEDS: MULTIVITAMIN W/MINERALS TABLET PO SCH (08:25)
[2020-04-26] MEDS: SENNA 8.6 MG TABLET PO SCH (08:27)
[2020-04-26] MEDS: ethyl alcohoL 62% SWAB AMPULE NAS SCH ×2 (08:27→21:30)
[2020-04-26] MEDS: polyethylene glycoL 3350 17 GM PACKET PO SCH (08:27)
[2020-04-26] MEDS: DOCUSATE SODIUM 250 MG CAPSULE PO SCH (08:27)
[2020-04-26 09:16] LABS: BASOPHILS % (AUTO) 0.2 %; EOSINOPHILS # (AUTO) 0.2 10^3/uL (0.0-0.7); LYMPHOCYTES # (AUTO) 1.9 10^3/uL (1.5-3.5); LYMPHOCYTES % (AUTO) 21.9 %; MEAN CORPUSCULAR HEMOGLOBIN 24.3 pg (27.0-31.0); MEAN CORPUSCULAR HGB CONC 29.3 g/dL (32.0-36.0); MEAN CORPUSCULAR VOLUME 82.7 fL (81.0-99.0); MEAN PLATELET VOLUME 9.4 fL (7.9-10.8); MONOCYTES # (AUTO) 0.6 10^3/uL (0.0-1.0); MONOCYTES % (AUTO) 6.7 %; NEUTROPHILS % (AUTO) 67.3 %; PLT - PLATELET COUNT 365 10^3/uL (130-450); RED BLOOD COUNT 3.71 10^6/uL (4.20-5.40); RED CELL DISTRIBUTION WIDTH 19.2 % (12.0-15.0); WHITE BLOOD COUNT 8.9 x10^3/uL (4.8-10.8)
[2020-04-26] MEDS: HEPARIN 5,000 UNIT/ML VIAL SUBQ SCH ×2 (09:24→21:29)
[2020-04-26] MEDS: ZINC OXIDE 20% OINT 30 GM TUBE TOP PRN (09:25)
[2020-04-26] MEDS: NYSTATIN POWDER 15 GM TOP SCH ×2 (09:25→21:34)
[2020-04-26 09:27] LABS: CALCIUM 7.7 mg/dL (8.5-10.3); CREATININE 0.4 mg/dL (0.4-1.0)
[2020-04-26 10:17] LABS: VANCOMYCIN,RANDOM 30.4 ug/mL
[2020-04-26] MEDS: SACCHAROMYCES BOULARDII 250 MG CAPSULE PO SCH ×2 (10:45→17:01)
[2020-04-26] MEDS: CEFEPIME 2 GM in SODIUM CHLORIDE 0.9% MINIBAG 100 ML IV SCH ×2 (10:45→21:30)
--- NOTE | 2020-04-26 15:25 | PROVIDER PROGRESS NOTE ---
Assessment/Plan - Problem List (1) MRSA bacteremia Assessment/Plan: Repeat blood culture is negative for bacteremia, Patient has PICC line, continue IV antibiotics of Cefepime and vancomycin two weeks now. Add probiotics (2) Sacral decubitus ulcer Called wound care consult, Nurse turn patient every 2 hours For prevention of further pressure ulcer, Continue wound care and dressing change, Continue antibiotics, General surgeon was consulted For wound care and debridged for pt before at the bedside. (3) Pelvic cellulitis in female Continue with IV antibiotics. (4) Decubitus ulcer, heel continue would culture and nurse care, turn pt Q2H for prevention of further pressure ulcer. pt was debrided at bedside several days ago. There was excessive bleeding the night after debridement which has now stabilized. General surgeon was consulted For wound care and debridged as needed. (5) Chronic osteomyelitis, other specified site Assessment/Plan: As per history, pt is on IV antibiotics now (6) Anemia Continue with replacement. Follow CBC daily. Transfuse if hemoglobin under 7 (7) Paraplegia following spinal cord injury Assessment/Plan: As per history (8) Neurogenic bladder Assessment/Plan: She was self cathing herself at home. Here she has a Stephens catheter in place (9) Chronic pain Patient has history of chronic pain, She has sensation from the thighs upward, so she can feel the sacral ulcers and pelvic are. Continue with pain meds as needed (10) Hypothyroidism Assessment/Plan: Her TSH was adequate at 1.71. Continue with her home dose of thyroid replacement (11) Anxiety Assessment/Plan: She uses cannabis smoking to control her anxiety when at home. She does not wish to be on an SSRI. Here we have needed to use Ativan in tiny doses. 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 Assessment/Plan: She had nasal treatment done at the time of admission (13)vulvar mass Patient was consulted by RETANNER, patient had biopsy yesterday, biopsy results is pending (14)sepsis Patient present sepsis in the admission, now patient has normal range WBC, patient has no fever, patient has no tachycardia, patient hemodynamic stable.We will continue antibiotics, Continue laboratory and vital signs monitor rebar worker was consulted for patient safety disposition - Current Meds Current Meds: Current Medications Generic Name Dose Route Start Last Admin Trade Name Freq PRN Reason Stop Dose Admin Hydrocodone Bitart/Acetaminophen 2 tab 04/20/20 18:28 04/26/20 12:32 Hydrocod/Acetam 5/325 Mg Tablet PO 2 tab Q4HR PRN Administration PAIN Alcohol 1 amp 04/20/20 09:00 04/26/20 08:27 Ethyl Alcohol 62% Swab Ampule CONNER 1 amp BID [facility] Administration Ascorbic Acid 500 mg 04/22/20 08:00 04/26/20 08:25 Ascorbic Acid Chew 500 Mg Tablet PO 500 mg DAILY [facility] Administration Benzonatate 100 mg 04/22/20 06:57 04/22/20 08:23 Benzonatate 100 Mg Capsule PO 100 mg TID PRN Administration Cough Diphenhydramine HCl 25 mg 04/20/20 22:01 04/25/20 21:35 Diphenhydramine 25 Mg Capsule PO 25 mg QPM PRN Administration Insomnia Docusate Sodium 250 - 500 mg 04/22/20 09:00 04/26/20 08:27 Docusate Sodium 250 Mg Capsule PO Not Given DAILY [facility] Ferrous Gluconate 324 mg 04/22/20 09:00 04/26/20 08:25 Ferrous Gluconate 324 Mg Tablet PO 324 mg DAILYWM [facility] Administration Heparin Sodium (Porcine) 5,000 unit 04/19/20 21:00 04/26/20 09:24 Heparin 5,000 Unit/Ml Vial SUBQ 5,000 unit BID [facility] Administration Cefepime HCl 2 gm/ Sodium 100 mls @ 200 mls/hr 04/19/20 21:00 04/26/20 11:38 Chloride IV Infused BID [facility] Infusion Levothyroxine Sodium 50 mcg 04/20/20 07:00 04/26/20 06:30 Levothyroxine 25 Mcg Tablet PO 50 mcg QDAC [facility] Administration Morphine Sulfate 2 mg 04/24/20 21:51 04/26/20 09:01 Morphine 2 Mg/Ml Carpuject IVP 2 mg Q6HR PRN Administration PAIN Multi-Ingredient Ointment 1 applic 04/26/20 09:19 04/26/20 09:25 Zinc Oxide 20% Oint 30 Gm Tube TOP 1 applic PRN PRN Administration Skin Care Multivitamins/Minerals 1 tab 04/22/20 08:00 04/26/20 08:25 Multivitamin W/Minerals Tablet PO 1 tab DAILYWM [facility] Administration Nystatin 1 applic 04/26/20 10:00 04/26/20 09:25 Nystatin Powder 15 Gm TOP 1 applic BID [facility] Administration Ondansetron HCl 4 mg 04/19/20 20:02 04/26/20 10:47 Ondansetron 4 Mg/2 Ml Vial IVP 4 mg Q6HR PRN Administration Nausea / Vomiting Polyethylene Glycol 17 gm 04/24/20 09:00 04/26/20 08:27 Polyethylene Glycol 3350 17 Gm Packet PO Not Given DAILY [facility] Prochlorperazine Edisylate 10 mg 04/24/20 17:34 04/25/20 09:03 Prochlorperazine 10 Mg/2 Ml Vial IVP 10 mg Q6HR PRN Administration Nausea / Vomiting Saccharomyces Boulardii 250 mg 04/26/20 10:17 04/26/20 10:45 Saccharomyces Boulardii 250 Mg Capsule PO 250 mg BIDWM [facility] Administration Senna 8.6 - 17.2 mg 04/24/20 09:00 04/26/20 08:27 Senna 8.6 Mg Tablet PO Not Given DAILY [facility] Sodium Chloride 10 ml 04/19/20 20:02 04/26/20 04:53 Sodium Chloride Flush 0.9% 10 Ml Syringe IVP 10 ml PRN PRN Administration NEEDED PER PROVIDER ORDERS Sodium Chloride 10 ml 04/20/20 01:00 04/26/20 01:20 Sodium Chloride Flush 0.9% 10 Ml Syringe IVP 10 ml 0100,0900,1700 [facility] Administration - Lab Result Fish Bone Diagrams: 04/26/20 09:08 04/26/20 09:08 - Additional Planning My Orders: My Active Orders 04/26/20 09:13 Wound Care - MAC [RC] .ONCE 04/26/20 10:00 Nystatin [Nystop] 1 applic TOP BID 04/26/20 10:17 Saccharomyces Boulardii [Florastor] 250 mg PO BIDWM 04/27/20 05:00 BMP - BASIC METABOLIC PANEL [CHEM] DAILYLAB CBC - COMP BLD CT W/AUTO DIFF [HEME] DAILYLAB 04/28/20 05:00 BMP - BASIC METABOLIC PANEL [CHEM] DAILYLAB CBC - COMP BLD CT W/AUTO DIFF [HEME] DAILYLAB 04/29/20 05:00 BMP - BASIC METABOLIC PANEL [CHEM] DAILYLAB CBC - COMP BLD CT W/AUTO DIFF [HEME] DAILYLAB 04/30/20 05:00 BMP - BASIC METABOLIC PANEL [CHEM] DAILYLAB CBC - COMP BLD CT W/AUTO DIFF [HEME] DAILYLAB 05/01/20 05:00 BMP - BASIC METABOLIC PANEL [CHEM] DAILYLAB CBC - COMP BLD CT W/AUTO DIFF [HEME] DAILYLAB Subjective - Subjective Patient Reports: Feeling Better Objective Vital Signs: Vital Signs - 24 hr 04/25/20 04/25/20 04/25/20 16:12 17:30 18:00 Temperature 36.5 C 36.3 C L 36.5 C Heart Rate 80 Heart Rate [ 83 Brachial] Heart Rate [ 84 Radial] Respiratory 16 18 18 Rate Blood Pressure [Left Brachial artery] Blood Pressure 158/72 H 157/71 H [Right Brachial artery] O2 Saturation 96 100 100 04/25/20 04/25/20 04/26/20 20:00 22:00 00:50 Temperature 36.7 C 36.8 C 36.4 C L Heart Rate Heart Rate [ 92 91 98 Brachial] Heart Rate [ Radial] Respiratory 18 18 20 Rate Blood Pressure [Left Brachial artery] Blood Pressure 160/64 H 153/76 H 150/67 H [Right Brachial artery] O2 Saturation 100 99 99 04/26/20 04/26/20 04/26/20 04:31 08:36 12:35 Temperature 36.5 C 36.5 C Heart Rate Heart Rate [ 91 Brachial] Heart Rate [ 83 Radial] Respiratory 18 18 Rate Blood Pressure 141/68 H 139/67 H 149/46 H [Left Brachial artery] Blood Pressure [Right Brachial artery] O2 Saturation 97 98 Oxygen O2 Source Room air I&O (Last 24 Hrs): Intake and Output Totals x24h 04/24/20 04/25/20 04/26/20 23:59 23:59 23:59 Intake Total 1220 2220 1030 Output Total 3350 5450 2264 Balance -2135 -304 -6468 General: Alert, Oriented x3, Mild distress HEENT: Atraumatic Neck: Supple Lymphatic: no adenopathy Neuro: Alert, Oriented Times 3 Cardiovascular: Regular rate, Normal S1, Normal S2 Respiratory: Chest non-tender, No respiratory distress Abdomen: Normal bowel sounds, Soft - Results Results: Laboratory Results WBC 8.9 x10^3/uL (4.8-10.8) 04/26/20 09:08 RBC 3.71 10^6/uL (4.20-5.40) L 04/26/20 09:08 Hgb 9.0 g/dL (12.0-16.0) L 04/26/20 09:08 Hct 30.7 % (37.0-47.0) L 04/26/20 09:08 MCV 82.7 fL (81.0-99.0) 04/26/20 09:08 MCH 24.3 pg (27.0-31.0) L 04/26/20 09:08 MCHC 29.3 g/dL (32.0-36.0) L 04/26/20 09:08 RDW 19.2 % (12.0-15.0) H 04/26/20 09:08 Plt Count 365 10^3/uL (130-450) 04/26/20 09:08 MPV 9.4 fL (7.9-10.8) 04/26/20 09:08 Neut # (Auto) 6.0 10^3/uL (1.5-6.6) 04/26/20 09:08 Lymph # (Auto) 1.9 10^3/uL (1.5-3.5) 04/26/20 09:08 [place] # (Auto) 0.6 10^3/uL (0.0-1.0) 04/26/20 09:08 Eos # (Auto) 0.2 10^3/uL (0.0-0.7) 04/26/20 09:08 Baso # (Auto) 0.0 10^3/uL (0.0-0.1) 04/26/20 09:08 Absolute Nucleated RBC 0.00 x10^3/uL 04/26/20 09:08 Total Counted 100 04/19/20 15:00 Band Neuts % (Manual) 10 % (0-10) 04/19/20 15:00 Abnorm Lymph % (Manual) 0 % 04/19/20 15:00 Nucleated RBC % 0.0 /100WBC 04/26/20 09:08 Neutrophils # (Manual) 30.3 10^3/uL (1.5-6.6) H 04/19/20 15:00 Lymphocytes # (Manual) 0.3 10^3/uL (1.5-3.5) L 04/19/20 15:00 Monocytes # (Manual) 1.3 10^3/uL (0.0-1.0) H 04/19/20 15:00 Eosinophils # (Manual) 0.0 10^3/uL (0-0.7) 04/19/20 15:00 Basophils # (Manual) 0.0 10^3/uL (0-0.1) 04/19/20 15:00 Differential Comment MANUAL DIFFERENTIAL 04/19/20 15:00 Platelet Estimate NORMAL (130-450,000) (NORMAL) 04/19/20 15:00 Platelet Morphology NORMAL APPEARANCE (NORMAL) 04/19/20 15:00 RBC Morph Micro Appear 2+ HYPOCHROMASIA (NORMAL) 04/19/20 15:00 Sodium 136 mmol/L (135-145) 04/26/20 09:08 Potassium 3.2 mmol/L (3.5-5.0) L 04/26/20 09:08 Chloride 103 mmol/L (101-111) 04/26/20 09:08 Carbon Dioxide 25 mmol/L (21-32) 04/26/20 09:08 Anion Gap 8.0 (6-13) 04/26/20 09:08 BUN 6 mg/dL (6-20) 04/26/20 09:08 Creatinine 0.4 mg/dL (0.4-1.0) 04/26/20 09:08 Estimated GFR (MDRD) 161 (>89) 04/26/20 09:08 Glucose 143 mg/dL (70-100) H 04/26/20 09:08 Lactic Acid 1.3 mmol/L (0.5-2.2) 04/19/20 15:00 Calcium 7.7 mg/dL (8.5-10.3) L 04/26/20 09:08 Iron < 6 ug/dL (28-170) L 04/22/20 05:35 TIBC 168 ug/dL (250-450) L 04/22/20 05:35 Transferrin 120 mg/dL (192-382) L 04/22/20 05:35 Total Bilirubin 2.1 mg/dL (0.2-1.0) H 04/19/20 15:00 AST 24 IU/L (10-42) 04/19/20 15:00 ALT 26 IU/L (10-60) 04/19/20 15:00 Alkaline Phosphatase 62 IU/L (42-121) 04/19/20 15:00 Total Protein 7.3 g/dL (6.7-8.2) 04/19/20 15:00 Albumin 2.5 g/dL (3.2-5.5) L 04/19/20 15:00 Globulin 4.8 g/dL (2.1-4.2) H 04/19/20 15:00 Albumin/Globulin Ratio 0.5 (1.0-2.2) L 04/19/20 15:00 Vitamin B12 1084 pg/mL (180-914) H 04/22/20 05:35 Folate 13.60 ng/mL (5.90 - >24.8) 04/22/20 05:35 TSH 1.71 uIU/mL (0.34-5.60) 04/20/20 04:55 Cortisol 12.2 ug/dL 04/20/20 04:55 Urine Color YELLOW 04/19/20 09:15 Urine Clarity CLEAR (CLEAR) 04/19/20 09:15 Urine pH 5.0 PH (5.0-7.5) 04/19/20 09:15 Ur Specific [place] 1.010 (1.002-1.030) 04/19/20 09:15 Urine Protein NEGATIVE mg/dL (NEGATIVE) 04/19/20 09:15 Urine Glucose (UA) NEGATIVE mg/dL (NEGATIVE) 04/19/20 09:15 Urine Ketones NEGATIVE mg/dL (NEGATIVE) 04/19/20 09:15 Urine Occult Blood NEGATIVE (NEGATIVE) 04/19/20 09:15 Urine Nitrite NEGATIVE (NEGATIVE) 04/19/20 09:15 Urine Bilirubin NEGATIVE (NEGATIVE) 04/19/20 09:15 Urine Urobilinogen 1 (NORMAL) E.U./dL (NORMAL) 04/19/20 09:15 Ur Leukocyte Esterase TRACE (NEGATIVE) H 04/19/20 09:15 Urine RBC 0-5 /HPF (0-5) 04/19/20 09:15 Urine WBC 6-10 /HPF (0-5) H 04/19/20 09:15 Urine WBC Clumps PRESENT 04/19/20 09:15 Ur Squamous Epith Cells FEW Squamous (<= Few) 04/19/20 09:15 Urine Bacteria Moderate /HPF (None Seen) H 04/19/20 09:15 Urine Culture Comments INDICATED 04/19/20 09:15 Nasal Adenovirus (PCR) NOT DETECTED 04/19/20 18:40 Nasal B. parapertussis DNA (PCR) NOT DETECTED 04/19/20 18:40 Nasal Coronavir 229E PCR NOT DETECTED 04/19/20 18:40 Nasal Coronavir HKU1 PCR NOT DETECTED 04/19/20 18:40 Nasal Coronavir NL63 PCR NOT DETECTED 04/19/20 18:40 Nasal Coronavir OC43 PCR NOT DETECTED 04/19/20 18:40 Nasal Enterovir/Rhinovir PCR NOT DETECTED 04/19/20 18:40 Nasal Influenza B PCR NOT DETECTED 04/19/20 18:40 Nasal Influenza A PCR NOT DETECTED 04/19/20 18:40 Nasal Parainfluen 1 PCR NOT DETECTED 04/19/20 18:40 Nasal Parainfluen 2 PCR NOT DETECTED 04/19/20 18:40 Nasal Parainfluen 3 PCR NOT DETECTED 04/19/20 18:40 Nasal Parainfluen 4 PCR NOT DETECTED 04/19/20 18:40 Nasal RSV (PCR) NOT DETECTED 04/19/20 18:40 Nasal Screen MRSA (PCR) POSITIVE (NEGATIVE) A* 04/19/20 22:40 Nasal B.pertussis DNA PCR NOT DETECTED 04/19/20 18:40 Nasal C.pneumoniae (PCR) NOT DETECTED 04/19/20 18:40 Conner Human Metapneumo PCR NOT DETECTED 04/19/20 18:40 Nasal M.pneumoniae (PCR) NOT DETECTED 04/19/20 18:40 Nasal SARS-CoV-2 (PCR) NOT DETECTED 04/19/20 18:40 Dose Cancelled 04/26/20 09:08 Last Dose Date Cancelled 04/26/20 09:08 Last Dose Time Cancelled 04/26/20 09:08 Vancomycin Trough Cancelled 04/26/20 09:08 Random Vancomycin 30.4 ug/mL 04/26/20 09:00 Blood Type A NEGATIVE 04/20/20 06:15 Antibody Screen NEGATIVE 04/20/20 06:15 Crossmatch See Detail 04/20/20 06:15 - Procedures Procedures: Procedures EXTRACTION OF BUTTOCK SKIN, EXTERNAL APPROACH (02/18/19) EXTRACTION OF L UP LEG SUBCU/FASCIA, PERC APPROACH (02/18/19) EXTRACTION OF LEFT FOOT SKIN, EXTERNAL APPROACH (02/18/19) EXTRACTION OF RIGHT FOOT SKIN, EXTERNAL APPROACH (02/18/19) INSERTION OF INFUSION DEV INTO SUP VENA CAVA, PERC APPROACH (02/18/19) Sepsis Event Note (H) - Evaluation Current Stage of Sepsis: Sepsis Possible source of Sepsis: positive: Skin/soft tissue - Sepsis Criteria Sepsis Criteria: Recorded Heart Rate greater than 90 bpm, Recorded Respiratory Rate greater than 20, WBC count greater than 10% bands, SBP less than 90 mmHg ABX Reporting Has patient been on IV antibiotics over the past 48 hours?: Yes Current Medications - Current Medications Current Medications: Active Medications Hydrocodone Bitart/Acetaminophen (Hydrocod/Acetam 5/325 Mg Tablet) 2 tab PO Q4HR PRN PRN Reason: PAIN Last Admin: 04/26/20 12:32 Dose: 2 tab Documented by: Alcohol (Ethyl Alcohol 62% Swab Ampule) 1 amp CONNER BID [facility] Last Admin: 04/26/20 08:27 Dose: 1 amp Documented by: Ascorbic Acid (Ascorbic Acid Chew 500 Mg Tablet) 500 mg PO DAILY [facility] Last Admin: 04/26/20 08:25 Dose: 500 mg Documented by: Benzonatate (Benzonatate 100 Mg Capsule) 100 mg PO TID PRN PRN Reason: Cough Last Admin: 04/22/20 08:23 Dose: 100 mg Documented by: Diphenhydramine HCl (Diphenhydramine 25 Mg Capsule) 25 mg PO QPM PRN PRN Reason: Insomnia Last Admin: 04/25/20 21:35 Dose: 25 mg Documented by: Docusate Sodium (Docusate Sodium 250 Mg Capsule) 250 - 500 mg PO DAILY [facility] Last Admin: 04/26/20 08:27 Dose: Not Given Documented by: Ferrous Gluconate (Ferrous Gluconate 324 Mg Tablet) 324 mg PO DAILYWM [facility] Last Admin: 04/26/20 08:25 Dose: 324 mg Documented by: Heparin Sodium (Porcine) (Heparin 5,000 Unit/Ml Vial) 5,000 unit SUBQ BID [facility] Last Admin: 04/26/20 09:24 Dose: 5,000 unit Documented by: Cefepime HCl 2 gm/ Sodium (Chloride) 100 mls @ 200 mls/hr IV BID [facility] Last Infusion: 04/26/20 11:38 Dose: Infused Documented by: Vancomycin HCl 1 gm/ Sodium (Chloride) 250 mls @ 167 mls/hr IV Q12H [facility] Levothyroxine Sodium (Levothyroxine 25 Mcg Tablet) 50 mcg PO QDAC [facility] Last Admin: 04/26/20 06:30 Dose: 50 mcg Documented by: Morphine Sulfate (Morphine 2 Mg/Ml Carpuject) 2 mg IVP Q6HR PRN PRN Reason: PAIN Last Admin: 04/26/20 09:01 Dose: 2 mg Documented by: Multi-Ingredient Ointment (Zinc Oxide 20% Oint 30 Gm Tube) 1 applic TOP PRN PRN PRN Reason: Skin Care Last Admin: 04/26/20 09:25 Dose: 1 applic Documented by: Multivitamins/Minerals (Multivitamin W/Minerals Tablet) 1 tab PO DAILYWM [facility] Last Admin: 04/26/20 08:25 Dose: 1 tab Documented by: Nystatin (Nystatin Powder 15 Gm) 1 applic TOP BID [facility] Last Admin: 04/26/20 09:25 Dose: 1 applic Documented by: Ondansetron HCl (Ondansetron 4 Mg/2 Ml Vial) 4 mg IVP Q6HR PRN PRN Reason: Nausea / Vomiting Last Admin: 04/26/20 10:47 Dose: 4 mg Documented by: Polyethylene Glycol (Polyethylene Glycol 3350 17 Gm Packet) 17 gm PO DAILY [facility] Last Admin: 04/26/20 08:27 Dose: Not Given Documented by: Prochlorperazine Edisylate (Prochlorperazine 10 Mg/2 Ml Vial) 10 mg IVP Q6HR PRN PRN Reason: Nausea / Vomiting Last Admin: 04/25/20 09:03 Dose: 10 mg Documented by: Saccharomyces Boulardii (Saccharomyces Boulardii 250 Mg Capsule) 250 mg PO BIDWM [facility] Last Admin: 04/26/20 10:45 Dose: 250 mg Documented by: Senna (Senna 8.6 Mg Tablet) 8.6 - 17.2 mg PO DAILY [facility] Last Admin: 04/26/20 08:27 Dose: Not Given Documented by: Sodium Chloride (Sodium Chloride Flush 0.9% 10 Ml Syringe) 10 ml IVP PRN PRN PRN Reason: NEEDED PER PROVIDER ORDERS Last Admin: 04/26/20 04:53 Dose: 10 ml Documented by: Sodium Chloride (Sodium Chloride Flush 0.9% 10 Ml Syringe) 10 ml IVP 0100,0900,1700 [facility] Last Admin: 04/26/20 01:20 Dose: 10 ml Documented by: Aspirin EC [Ecotrin] 325 mg PO DAILY PRN 10/07/12 Multivitamin [Multivitamins] 1 tab PO DAILY 10/07/12 Sennosides [Senna] 8.6 mg PO DAILY 10/07/12 Oxybutynin Chloride 10 mg PO TID 02/19/19 Levothyroxine Sodium [Levothyroxine] 50 mcg PO DAILY 04/20/20 Morphine Sulfate [Luly] 20 mg PO BID 04/21/20
[2020-04-26 16:14] LABS: VANCOMYCIN,TROUGH 16.8 ug/mL (10.0-20.0)
--- NOTE | 2020-04-26 20:52 | PROVIDER PROGRESS NOTE ---
Progress Note Patient status post below listed procedures: 1. Exam under anesthesia 2. Rigid proctosigmoidoscopy 3. Disimpaction, fecal 4. Biopsy of right perineal decubitus ulcer 5. Debridement of right perineal decubitus ulceration 6. Pulse lavage of right perineal decubitus ulceration 7. Pelvic exam and Pap smear, per gynecology 8. 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 Extensive biopsy of left vaginal lesion/mass We will need to await pathology towards guiding therapy. Extensive pelvic and perineal tissue compromise and associated loss. Evidence of ongoing osteomyelitis. Pending pathology will have to consider transfer for higher level of care. Continue with local wound care. Continue with IV antibiotics.
[2020-04-27] MEDS: HYDROcod/ACETAM 5/325 MG TABLET PO PRN ×3 (01:36→21:00)
[2020-04-27] MEDS: SODIUM CHLORIDE FLUSH 0.9% 10 ML SYRINGE IVP SCH ×3 (01:37→16:31)
[2020-04-27] MEDS: VANCOMYCIN INJ 1 GM in SODIUM CHLORIDE 0.9% 250 ML IV SCH ×2 (04:50→16:30)
[2020-04-27 05:28] LABS: BASOPHILS % (AUTO) 0.3 %; EOSINOPHILS # (AUTO) 0.2 10^3/uL (0.0-0.7); EOSINOPHILS % (AUTO) 3.1 %; HGB - HEMOGLOBIN 8.3 g/dL (12.0-16.0); LYMPHOCYTES # (AUTO) 2.2 10^3/uL (1.5-3.5); MEAN CORPUSCULAR HEMOGLOBIN 24.4 pg (27.0-31.0); MEAN CORPUSCULAR HGB CONC 29.3 g/dL (32.0-36.0); MEAN CORPUSCULAR VOLUME 83.2 fL (81.0-99.0); MEAN PLATELET VOLUME 9.5 fL (7.9-10.8); MONOCYTES # (AUTO) 0.6 10^3/uL (0.0-1.0); MONOCYTES % (AUTO) 8.4 %; NEUTROPHILS # (AUTO) 4.2 10^3/uL (1.5-6.6); PLT - PLATELET COUNT 380 10^3/uL (130-450); WHITE BLOOD COUNT 7.4 x10^3/uL (4.8-10.8)
[2020-04-27 05:39] LABS: CREATININE 0.4 mg/dL (0.4-1.0)
[2020-04-27] MEDS: ZINC OXIDE 20% OINT 30 GM TUBE TOP PRN (06:05)
[2020-04-27] MEDS: LEVOTHYROXINE 25 MCG TABLET PO SCH (06:57)
[2020-04-27] MEDS: MORPHINE 2 MG/ML CARPUJECT IVP PRN ×3 (06:58→19:02)
[2020-04-27] MEDS ORDERED: POTASSIUM CHLORIDE 20 MEQ TABLET PO ONE (07:38)
[2020-04-27] MEDS: ASCORBIC ACID CHEW 500 MG TABLET PO SCH (09:21)
[2020-04-27] MEDS: DOCUSATE SODIUM 250 MG CAPSULE PO SCH (09:21)
[2020-04-27] MEDS: FERROUS GLUCONATE 324 MG TABLET PO SCH (09:21)
[2020-04-27] MEDS: ethyl alcohoL 62% SWAB AMPULE NAS SCH ×2 (09:21→20:59)
[2020-04-27] MEDS: MULTIVITAMIN W/MINERALS TABLET PO SCH (09:22)
[2020-04-27] MEDS: polyethylene glycoL 3350 17 GM PACKET PO SCH (09:22)
[2020-04-27] MEDS: SENNA 8.6 MG TABLET PO SCH (09:22)
[2020-04-27] MEDS: SACCHAROMYCES BOULARDII 250 MG CAPSULE PO SCH ×2 (09:22→16:31)
[2020-04-27] MEDS: NYSTATIN POWDER 15 GM TOP SCH ×2 (09:29→20:59)
[2020-04-27] MEDS: CEFEPIME 2 GM in SODIUM CHLORIDE 0.9% MINIBAG 100 ML IV SCH ×2 (09:29→20:58)
[2020-04-27] MEDS: ONDANSETRON 4 MG/2 ML VIAL IVP PRN (09:50)
[2020-04-27] MEDS: SODIUM CHLORIDE FLUSH 0.9% 10 ML SYRINGE IVP PRN ×2 (09:51→13:10)
[2020-04-27] MEDS: HEPARIN 5,000 UNIT/ML VIAL SUBQ SCH ×2 (09:54→21:03)
[2020-04-27] MEDS: PROCHLORPERAZINE 10 MG/2 ML VIAL IVP PRN (13:09)
--- NOTE | 2020-04-27 13:28 | PROVIDER PROGRESS NOTE ---
Assessment/Plan - Problem List (1) MRSA bacteremia Assessment/Plan: 04/27 continue vancomycin treatment, Repeated blood cultures is negative For bacteremia. we may call ID for guiding antibiotics treatment Repeat blood culture is negative for bacteremia, Patient has PICC line, continue IV antibiotics of Cefepime and vancomycin two weeks now. Add probiotics (2) Sacral decubitus ulcer 04/27 pt had Debridement of right perineal decubitus ulceration by surgeon, pt is await pathology towards guiding therapy. pt has chronic Extensive pelvic and perineal tissue compromise and associated loss. Evidence of ongoing osteomyelitis, plus decubitus ulcer, at heel. This Is patient's chronic condition, will continue wound care. Social work was consulted for assisted facility to continue care of the patient in the d/c plan Called wound care consult, Nurse turn patient every 2 hours For prevention of further pressure ulcer, Continue wound care and dressing change, Continue antibiotics, General surgeon was consulted For wound care and debridged for pt before at the bedside. (3) Pelvic cellulitis in female Continue with IV antibiotics. (4) Decubitus ulcer, heel 04/27, We will continue wound care, will consult wound care in the hospital for inpatient service, it is pending now. continue would culture and nurse care, turn pt Q2H for prevention of further pressure ulcer. pt was debrided at bedside several days ago. There was excessive bleeding the night after debridement which has now stabilized. General surgeon was consulted For wound care and debrided as needed. (5) Chronic osteomyelitis, other specified site Assessment/Plan: 1223, patient has chronic osteomyelitis, We tried for higher level care for patient in the last admission, Unfortunately, another hospital decline. The patient had this chronic infection For quite a long time. Patient declined Intervention service in the past at Higher level care of hospital. As per history, pt is on IV antibiotics now (6) Anemia Continue with replacement. Follow CBC daily. Transfuse if hemoglobin under 7 (7) Paraplegia following spinal cord injury Assessment/Plan: As per history (8) Neurogenic bladder Assessment/Plan: She was self cathing herself at home. Here she has a Stephens catheter in place (9) Chronic pain Patient has history of chronic pain, She has sensation from the thighs upward, so she can feel the sacral ulcers and pelvic are. Continue with pain meds as needed (10) Hypothyroidism Assessment/Plan: Her TSH was adequate at 1.71. Continue with her home dose of thyroid replacement (11) Anxiety Assessment/Plan: She uses cannabis smoking to control her anxiety when at home. She does not wish to be on an SSRI. Here we have needed to use Ativan in tiny doses. 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 Patient was consulted by [employer], patient had biopsy yesterday, biopsy results is pending (14)sepsis Patient present sepsis in the admission, now patient has normal range WBC, patient has no fever, patient has no tachycardia, patient hemodynamic stable.We will continue antibiotics, Continue laboratory and vital signs monitor - Current Meds Current Meds: Current Medications Generic Name Dose Route Start Last Admin Trade Name Freq PRN Reason Stop Dose Admin Hydrocodone Bitart/Acetaminophen 2 tab 04/20/20 18:28 04/27/20 01:36 Hydrocod/Acetam 5/325 Mg Tablet PO 2 tab Q4HR PRN Administration PAIN Alcohol 1 amp 04/20/20 09:00 04/27/20 09:21 Ethyl Alcohol 62% Swab Ampule CONNER 1 amp BID VANE Administration Ascorbic Acid 500 mg 04/22/20 08:00 04/27/20 09:21 Ascorbic Acid Chew 500 Mg Tablet PO 500 mg DAILY VANE Administration Benzonatate 100 mg 04/22/20 06:57 04/22/20 08:23 Benzonatate 100 Mg Capsule PO 100 mg TID PRN Administration Cough Diphenhydramine HCl 25 mg 04/20/20 22:01 04/25/20 21:35 Diphenhydramine 25 Mg Capsule PO 25 mg QPM PRN Administration Insomnia Docusate Sodium 250 - 500 mg 04/22/20 09:00 04/27/20 09:21 Docusate Sodium 250 Mg Capsule PO Not Given DAILY VANE Ferrous Gluconate 324 mg 04/22/20 09:00 04/27/20 09:21 Ferrous Gluconate 324 Mg Tablet PO 324 mg DAILYWM [facility] Administration Heparin Sodium (Porcine) 5,000 unit 04/19/20 21:00 04/27/20 09:54 Heparin 5,000 Unit/Ml Vial SUBQ 5,000 unit BID VANE Administration Cefepime HCl 2 gm/ Sodium 100 mls @ 200 mls/hr 04/19/20 21:00 04/27/20 10:00 Chloride IV Infused BID [facility] Infusion Vancomycin HCl 1 gm/ Sodium 250 mls @ 167 mls/hr 04/26/20 17:00 04/27/20 06:20 Chloride IV Infused Q12H [facility] Infusion Levothyroxine Sodium 50 mcg 04/20/20 07:00 04/27/20 06:57 Levothyroxine 25 Mcg Tablet PO 50 mcg QDAC [facility]ANE Administration Morphine Sulfate 2 mg 04/24/20 21:51 04/27/20 13:09 Morphine 2 Mg/Ml Carpuject IVP 2 mg Q6HR PRN Administration PAIN Multi-Ingredient Ointment 1 applic 04/26/20 09:19 04/27/20 06:05 Zinc Oxide 20% Oint 30 Gm Tube TOP 1 applic PRN PRN Administration Skin Care Multivitamins/Minerals 1 tab 04/22/20 08:00 04/27/20 09:22 Multivitamin W/Minerals Tablet PO 1 tab DAILYWM [facility] Administration Nystatin 1 applic 04/26/20 10:00 04/27/20 09:29 Nystatin Powder 15 Gm TOP 1 applic BID VANE Administration Ondansetron HCl 4 mg 04/19/20 20:02 04/27/20 09:50 Ondansetron 4 Mg/2 Ml Vial IVP 4 mg Q6HR PRN Administration Nausea / Vomiting Polyethylene Glycol 17 gm 04/24/20 09:00 04/27/20 09:22 Polyethylene Glycol 3350 17 Gm Packet PO Not Given DAILY [facility]ANE Prochlorperazine Edisylate 10 mg 04/24/20 17:34 04/27/20 13:09 Prochlorperazine 10 Mg/2 Ml Vial IVP 10 mg Q6HR PRN Administration Nausea / Vomiting Saccharomyces Boulardii 250 mg 04/26/20 10:17 04/27/20 09:22 Saccharomyces Boulardii 250 Mg Capsule PO 250 mg BIDWM VANE Administration Senna 8.6 - 17.2 mg 04/24/20 09:00 04/27/20 09:22 Senna 8.6 Mg Tablet PO Not Given DAILY [facility] Sodium Chloride 10 ml 04/19/20 20:02 04/27/20 13:10 Sodium Chloride Flush 0.9% 10 Ml Syringe IVP 10 ml PRN PRN Administration NEEDED PER PROVIDER ORDERS Sodium Chloride 10 ml 04/20/20 01:00 04/27/20 01:49 Sodium Chloride Flush 0.9% 10 Ml Syringe IVP 10 ml 0100,0900,1700 [facility] Administration - Lab Result Fish Bone Diagrams: 04/27/20 04:40 04/27/20 04:40 - Additional Planning My Orders: My Active Orders 04/28/20 05:00 BMP - BASIC METABOLIC PANEL [CHEM] DAILYLAB CBC - COMP BLD CT W/AUTO DIFF [HEME] DAILYLAB 04/29/20 05:00 BMP - BASIC METABOLIC PANEL [CHEM] DAILYLAB CBC - COMP BLD CT W/AUTO DIFF [HEME] DAILYLAB 04/30/20 05:00 BMP - BASIC METABOLIC PANEL [CHEM] DAILYLAB CBC - COMP BLD CT W/AUTO DIFF [HEME] DAILYLAB 05/01/20 05:00 BMP - BASIC METABOLIC PANEL [CHEM] DAILYLAB CBC - COMP BLD CT W/AUTO DIFF [HEME] DAILYLAB Subjective - Subjective Patient Reports: Feeling Better Objective Vital Signs: Vital Signs - 24 hr 04/26/20 04/27/20 04/27/20 17:23 01:43 04:40 Temperature 36.6 C 36.6 C 36.5 C Heart Rate [ 86 Brachial] Heart Rate [ 88 89 Radial] Respiratory 20 16 16 Rate Blood Pressure 141/73 H [Left Brachial artery] Blood Pressure 146/78 H 135/66 H [Right Brachial artery] O2 Saturation 97 98 97 04/27/20 09:59 Temperature 36.8 C Heart Rate [ Brachial] Heart Rate [ 94 Radial] Respiratory 18 Rate Blood Pressure 142/81 H [Left Brachial artery] Blood Pressure [Right Brachial artery] O2 Saturation 99 Oxygen O2 Source Room air I&O (Last 24 Hrs): Intake and Output Totals x24h 04/25/20 04/26/20 04/27/20 23:59 23:59 23:59 Intake Total 2220 2120 1265 Output Total 3050 4325 2600 Balance -830 -6004 -1335 General: Alert, Oriented x3, Cooperative, No acute distress HEENT: Atraumatic, PERRLA Neck: Supple Lymphatic: no adenopathy Neuro: Alert, Oriented Times 3 Cardiovascular: Regular rate, Normal S1, Normal S2 Respiratory: Chest non-tender, No respiratory distress Abdomen: Normal bowel sounds, Soft Extremities: Normal pulses - Results Results: Laboratory Results WBC 7.4 x10^3/uL (4.8-10.8) 04/27/20 04:40 RBC 3.40 10^6/uL (4.20-5.40) L 04/27/20 04:40 Hgb 8.3 g/dL (12.0-16.0) L 04/27/20 04:40 Hct 28.3 % (37.0-47.0) L 04/27/20 04:40 MCV 83.2 fL (81.0-99.0) 04/27/20 04:40 MCH 24.4 pg (27.0-31.0) L 04/27/20 04:40 MCHC 29.3 g/dL (32.0-36.0) L 04/27/20 04:40 RDW 19.0 % (12.0-15.0) H 04/27/20 04:40 Plt Count 380 10^3/uL (130-450) 04/27/20 04:40 MPV 9.5 fL (7.9-10.8) 04/27/20 04:40 Neut # (Auto) 4.2 10^3/uL (1.5-6.6) 04/27/20 04:40 Lymph # (Auto) 2.2 10^3/uL (1.5-3.5) 04/27/20 04:40 [place] # (Auto) 0.6 10^3/uL (0.0-1.0) 04/27/20 04:40 Eos # (Auto) 0.2 10^3/uL (0.0-0.7) 04/27/20 04:40 Baso # (Auto) 0.0 10^3/uL (0.0-0.1) 04/27/20 04:40 Absolute Nucleated RBC 0.00 x10^3/uL 04/27/20 04:40 Total Counted 100 04/19/20 15:00 Band Neuts % (Manual) 10 % (0-10) 04/19/20 15:00 Abnorm Lymph % (Manual) 0 % 04/19/20 15:00 Nucleated RBC % 0.0 /100WBC 04/27/20 04:40 Neutrophils # (Manual) 30.3 10^3/uL (1.5-6.6) H 04/19/20 15:00 Lymphocytes # (Manual) 0.3 10^3/uL (1.5-3.5) L 04/19/20 15:00 Monocytes # (Manual) 1.3 10^3/uL (0.0-1.0) H 04/19/20 15:00 Eosinophils # (Manual) 0.0 10^3/uL (0-0.7) 04/19/20 15:00 Basophils # (Manual) 0.0 10^3/uL (0-0.1) 04/19/20 15:00 Differential Comment MANUAL DIFFERENTIAL 04/19/20 15:00 Platelet Estimate NORMAL (130-450,000) (NORMAL) 04/19/20 15:00 Platelet Morphology NORMAL APPEARANCE (NORMAL) 04/19/20 15:00 RBC Morph Micro Appear 2+ HYPOCHROMASIA (NORMAL) 04/19/20 15:00 Sodium 139 mmol/L (135-145) 04/27/20 04:40 Potassium 3.4 mmol/L (3.5-5.0) L 04/27/20 04:40 Chloride 103 mmol/L (101-111) 04/27/20 04:40 Carbon Dioxide 29 mmol/L (21-32) 04/27/20 04:40 Anion Gap 7.0 (6-13) 04/27/20 04:40 BUN 14 mg/dL (6-20) 04/27/20 04:40 Creatinine 0.4 mg/dL (0.4-1.0) 04/27/20 04:40 Estimated GFR (MDRD) 161 (>89) 04/27/20 04:40 Glucose 97 mg/dL (70-100) 04/27/20 04:40 Lactic Acid 1.3 mmol/L (0.5-2.2) 04/19/20 15:00 Calcium 8.0 mg/dL (8.5-10.3) L 04/27/20 04:40 Iron < 6 ug/dL (28-170) L 04/22/20 05:35 TIBC 168 ug/dL (250-450) L 04/22/20 05:35 Transferrin 120 mg/dL (192-382) L 04/22/20 05:35 Total Bilirubin 2.1 mg/dL (0.2-1.0) H 04/19/20 15:00 AST 24 IU/L (10-42) 04/19/20 15:00 ALT 26 IU/L (10-60) 04/19/20 15:00 Alkaline Phosphatase 62 IU/L (42-121) 04/19/20 15:00 Total Protein 7.3 g/dL (6.7-8.2) 04/19/20 15:00 Albumin 2.5 g/dL (3.2-5.5) L 04/19/20 15:00 Globulin 4.8 g/dL (2.1-4.2) H 04/19/20 15:00 Albumin/Globulin Ratio 0.5 (1.0-2.2) L 04/19/20 15:00 Vitamin B12 1084 pg/mL (180-914) H 04/22/20 05:35 Folate 13.60 ng/mL (5.90 - >24.8) 04/22/20 05:35 TSH 1.71 uIU/mL (0.34-5.60) 04/20/20 04:55 Cortisol 12.2 ug/dL 04/20/20 04:55 Urine Color YELLOW 04/19/20 09:15 Urine Clarity CLEAR (CLEAR) 04/19/20 09:15 Urine pH 5.0 PH (5.0-7.5) 04/19/20 09:15 Ur Specific Mcneal 1.010 (1.002-1.030) 04/19/20 09:15 Urine Protein NEGATIVE mg/dL (NEGATIVE) 04/19/20 09:15 Urine Glucose (UA) NEGATIVE mg/dL (NEGATIVE) 04/19/20 09:15 Urine Ketones NEGATIVE mg/dL (NEGATIVE) 04/19/20 09:15 Urine Occult Blood NEGATIVE (NEGATIVE) 04/19/20 09:15 Urine Nitrite NEGATIVE (NEGATIVE) 04/19/20 09:15 Urine Bilirubin NEGATIVE (NEGATIVE) 04/19/20 09:15 Urine Urobilinogen 1 (NORMAL) E.U./dL (NORMAL) 04/19/20 09:15 Ur Leukocyte Esterase TRACE (NEGATIVE) H 04/19/20 09:15 Urine RBC 0-5 /HPF (0-5) 04/19/20 09:15 Urine WBC 6-10 /HPF (0-5) H 04/19/20 09:15 Urine WBC Clumps PRESENT 04/19/20 09:15 Ur Squamous Epith Cells FEW Squamous (<= Few) 04/19/20 09:15 Urine Bacteria Moderate /HPF (None Seen) H 04/19/20 09:15 Urine Culture Comments INDICATED 04/19/20 09:15 Nasal Adenovirus (PCR) NOT DETECTED 04/19/20 18:40 Nasal B. parapertussis DNA (PCR) NOT DETECTED 04/19/20 18:40 Nasal Coronavir 229E PCR NOT DETECTED 04/19/20 18:40 Nasal Coronavir HKU1 PCR NOT DETECTED 04/19/20 18:40 Nasal Coronavir NL63 PCR NOT DETECTED 04/19/20 18:40 Nasal Coronavir OC43 PCR NOT DETECTED 04/19/20 18:40 Nasal Enterovir/Rhinovir PCR NOT DETECTED 04/19/20 18:40 Nasal Influenza B PCR NOT DETECTED 04/19/20 18:40 Nasal Influenza A PCR NOT DETECTED 04/19/20 18:40 Nasal Parainfluen 1 PCR NOT DETECTED 04/19/20 18:40 Nasal Parainfluen 2 PCR NOT DETECTED 04/19/20 18:40 Nasal Parainfluen 3 PCR NOT DETECTED 04/19/20 18:40 Nasal Parainfluen 4 PCR NOT DETECTED 04/19/20 18:40 Nasal RSV (PCR) NOT DETECTED 04/19/20 18:40 Nasal Screen MRSA (PCR) POSITIVE (NEGATIVE) A* 04/19/20 22:40 Nasal B.pertussis DNA PCR NOT DETECTED 04/19/20 18:40 Nasal C.pneumoniae (PCR) NOT DETECTED 04/19/20 18:40 Conner Human Metapneumo PCR NOT DETECTED 04/19/20 18:40 Nasal M.pneumoniae (PCR) NOT DETECTED 04/19/20 18:40 Nasal SARS-CoV-2 (PCR) NOT DETECTED 04/19/20 18:40 Dose Cancelled 04/26/20 09:08 Last Dose Date 04/26/20 04/26/20 16:00 Last Dose Time 0611 04/26/20 16:00 Vancomycin Trough 16.8 ug/mL (10.0-20.0) 04/26/20 16:00 Random Vancomycin 30.4 ug/mL 04/26/20 09:00 Blood Type A NEGATIVE 04/20/20 06:15 Antibody Screen NEGATIVE 04/20/20 06:15 Crossmatch See Detail 04/20/20 06:15 - Procedures Procedures: Procedures EXTRACTION OF BUTTOCK SKIN, EXTERNAL APPROACH (02/18/19) EXTRACTION OF L UP LEG SUBCU/FASCIA, PERC APPROACH (02/18/19) EXTRACTION OF LEFT FOOT SKIN, EXTERNAL APPROACH (02/18/19) EXTRACTION OF RIGHT FOOT SKIN, EXTERNAL APPROACH (02/18/19) INSERTION OF INFUSION DEV INTO SUP VENA CAVA, PERC APPROACH (02/18/19) Sepsis Event Note (H) - Evaluation Current Stage of Sepsis: Sepsis Possible source of Sepsis: positive: Skin/soft tissue - Sepsis Criteria Sepsis Criteria: Recorded Heart Rate greater than 90 bpm, Recorded Respiratory Rate greater than 20, WBC count greater than 10% bands, SBP less than 90 mmHg ABX Reporting Has patient been on IV antibiotics over the past 48 hours?: Yes Current Medications - Current Medications Current Medications: Active Medications Hydrocodone Bitart/Acetaminophen (Hydrocod/Acetam 5/325 Mg Tablet) 2 tab PO Q4HR PRN PRN Reason: PAIN Last Admin: 04/27/20 01:36 Dose: 2 tab Documented by: Alcohol (Ethyl Alcohol 62% Swab Ampule) 1 amp CONNER BID [facility] Last Admin: 04/27/20 09:21 Dose: 1 amp Documented by: Ascorbic Acid (Ascorbic Acid Chew 500 Mg Tablet) 500 mg PO DAILY [facility] Last Admin: 04/27/20 09:21 Dose: 500 mg Documented by: Benzonatate (Benzonatate 100 Mg Capsule) 100 mg PO TID PRN PRN Reason: Cough Last Admin: 04/22/20 08:23 Dose: 100 mg Documented by: Diphenhydramine HCl (Diphenhydramine 25 Mg Capsule) 25 mg PO QPM PRN PRN Reason: Insomnia Last Admin: 04/25/20 21:35 Dose: 25 mg Documented by: Docusate Sodium (Docusate Sodium 250 Mg Capsule) 250 - 500 mg PO DAILY [facility] Last Admin: 04/27/20 09:21 Dose: Not Given Documented by: Ferrous Gluconate (Ferrous Gluconate 324 Mg Tablet) 324 mg PO DAILYWM [facility] Last Admin: 04/27/20 09:21 Dose: 324 mg Documented by: Heparin Sodium (Porcine) (Heparin 5,000 Unit/Ml Vial) 5,000 unit SUBQ BID [facility] Last Admin: 04/27/20 09:54 Dose: 5,000 unit Documented by: Cefepime HCl 2 gm/ Sodium (Chloride) 100 mls @ 200 mls/hr IV BID [facility] Last Infusion: 04/27/20 10:00 Dose: Infused Documented by: Vancomycin HCl 1 gm/ Sodium (Chloride) 250 mls @ 167 mls/hr IV Q12H [facility] Last Infusion: 04/27/20 06:20 Dose: Infused Documented by: Levothyroxine Sodium (Levothyroxine 25 Mcg Tablet) 50 mcg PO QDAC [facility] Last Admin: 04/27/20 06:57 Dose: 50 mcg Documented by: Morphine Sulfate (Morphine 2 Mg/Ml Carpuject) 2 mg IVP Q6HR PRN PRN Reason: PAIN Last Admin: 04/27/20 13:09 Dose: 2 mg Documented by: Multi-Ingredient Ointment (Zinc Oxide 20% Oint 30 Gm Tube) 1 applic TOP PRN PRN PRN Reason: Skin Care Last Admin: 04/27/20 06:05 Dose: 1 applic Documented by: Multivitamins/Minerals (Multivitamin W/Minerals Tablet) 1 tab PO DAILYWM [facility] Last Admin: 04/27/20 09:22 Dose: 1 tab Documented by: Nystatin (Nystatin Powder 15 Gm) 1 applic TOP BID [facility] Last Admin: 04/27/20 09:29 Dose: 1 applic Documented by: Ondansetron HCl (Ondansetron 4 Mg/2 Ml Vial) 4 mg IVP Q6HR PRN PRN Reason: Nausea / Vomiting Last Admin: 04/27/20 09:50 Dose: 4 mg Documented by: Polyethylene Glycol (Polyethylene Glycol 3350 17 Gm Packet) 17 gm PO DAILY [facility] Last Admin: 04/27/20 09:22 Dose: Not Given Documented by: Prochlorperazine Edisylate (Prochlorperazine 10 Mg/2 Ml Vial) 10 mg IVP Q6HR PRN PRN Reason: Nausea / Vomiting Last Admin: 04/27/20 13:09 Dose: 10 mg Documented by: Saccharomyces Boulardii (Saccharomyces Boulardii 250 Mg Capsule) 250 mg PO BIDWM [facility] Last Admin: 04/27/20 09:22 Dose: 250 mg Documented by: Senna (Senna 8.6 Mg Tablet) 8.6 - 17.2 mg PO DAILY [facility] Last Admin: 04/27/20 09:22 Dose: Not Given Documented by: Sodium Chloride (Sodium Chloride Flush 0.9% 10 Ml Syringe) 10 ml IVP PRN PRN PRN Reason: NEEDED PER PROVIDER ORDERS Last Admin: 04/27/20 13:10 Dose: 10 ml Documented by: Sodium Chloride (Sodium Chloride Flush 0.9% 10 Ml Syringe) 10 ml IVP 0100,0900,1700 [facility] Last Admin: 04/27/20 01:49 Dose: 10 ml Documented by: Aspirin EC [Ecotrin] 325 mg PO DAILY PRN 10/07/12 Multivitamin [Multivitamins] 1 tab PO DAILY 10/07/12 Sennosides [Senna] 8.6 mg PO DAILY 10/07/12 Oxybutynin Chloride 10 mg PO TID 02/19/19 Levothyroxine Sodium [Levothyroxine] 50 mcg PO DAILY 04/20/20 Morphine Sulfate [Luly] 20 mg PO BID 04/21/20
[2020-04-27] MEDS ORDERED: SEVOFLURANE 250 ML LIQUID INH ONE ×2 (14:32→14:43)
[2020-04-27] MEDS ORDERED: PHENYLEPHRINE 10 MG/ML VIAL ONE (14:34)
[2020-04-27] MEDS ORDERED: PROPOFOL 200 MG/20 ML VIAL IVP ONE (14:34)
[2020-04-27] MEDS ORDERED: ceFAZolin 1 GM VIAL ONE (14:49)
[2020-04-27] MEDS ORDERED: LIDOCAINE-MPF 2% 5 ML VIAL ONE (14:50)
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
[2020-04-28] MEDS: ONDANSETRON 4 MG/2 ML VIAL IVP PRN ×2 (01:31→09:51)
[2020-04-28] MEDS: MORPHINE 2 MG/ML CARPUJECT IVP PRN ×3 (01:33→15:54)
[2020-04-28] MEDS: SODIUM CHLORIDE FLUSH 0.9% 10 ML SYRINGE IVP SCH ×3 (01:33→15:55)
[2020-04-28 05:42] LABS: BASOPHILS % (AUTO) 0.4 %; EOSINOPHILS # (AUTO) 0.2 10^3/uL (0.0-0.7); EOSINOPHILS % (AUTO) 2.5 %; HGB - HEMOGLOBIN 8.6 g/dL (12.0-16.0); LYMPHOCYTES # (AUTO) 2.3 10^3/uL (1.5-3.5); LYMPHOCYTES % (AUTO) 33.7 %; MEAN CORPUSCULAR HEMOGLOBIN 24.5 pg (27.0-31.0); MEAN CORPUSCULAR HGB CONC 29.3 g/dL (32.0-36.0); MEAN CORPUSCULAR VOLUME 83.8 fL (81.0-99.0); MEAN PLATELET VOLUME 9.4 fL (7.9-10.8); MONOCYTES # (AUTO) 0.6 10^3/uL (0.0-1.0); MONOCYTES % (AUTO) 8.4 %; NEUTROPHILS # (AUTO) 3.6 10^3/uL (1.5-6.6); NEUTROPHILS % (AUTO) 51.8 %; PLT - PLATELET COUNT 369 10^3/uL (130-450); RED BLOOD COUNT 3.51 10^6/uL (4.20-5.40); RED CELL DISTRIBUTION WIDTH 19.4 % (12.0-15.0); WHITE BLOOD COUNT 6.9 x10^3/uL (4.8-10.8)
[2020-04-28] MEDS: VANCOMYCIN INJ 1 GM in SODIUM CHLORIDE 0.9% 250 ML IV SCH ×2 (05:51→16:05)
[2020-04-28 05:52] LABS: CALCIUM 8.2 mg/dL (8.5-10.3); CREATININE 0.4 mg/dL (0.4-1.0)
[2020-04-28] MEDS: LEVOTHYROXINE 25 MCG TABLET PO SCH (06:20)
[2020-04-28] MEDS ORDERED: HYDROcod/ACETAM 5/325 MG TABLET PO PRN (07:06)
[2020-04-28] MEDS: CEFEPIME 2 GM in SODIUM CHLORIDE 0.9% MINIBAG 100 ML IV SCH (09:51)
[2020-04-28] MEDS: FERROUS GLUCONATE 324 MG TABLET PO SCH (09:52)
[2020-04-28] MEDS: ASCORBIC ACID CHEW 500 MG TABLET PO SCH (09:52)
[2020-04-28] MEDS: MULTIVITAMIN W/MINERALS TABLET PO SCH (09:52)
[2020-04-28] MEDS: SACCHAROMYCES BOULARDII 250 MG CAPSULE PO SCH ×2 (09:52→15:57)
[2020-04-28] MEDS: HEPARIN 5,000 UNIT/ML VIAL SUBQ SCH (09:53)
[2020-04-28] MEDS: ethyl alcohoL 62% SWAB AMPULE NAS SCH (10:00)
[2020-04-28] MEDS: polyethylene glycoL 3350 17 GM PACKET PO SCH (10:01)
[2020-04-28] MEDS: NYSTATIN POWDER 15 GM TOP SCH (10:01)
[2020-04-28] MEDS: DOCUSATE SODIUM 250 MG CAPSULE PO SCH (10:01)
[2020-04-28] MEDS: SENNA 8.6 MG TABLET PO SCH (10:01)
[2020-04-28] MEDS: SODIUM CHLORIDE FLUSH 0.9% 10 ML SYRINGE IVP PRN (10:43)
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
[2020-04-28 17:58] VITALS: BP 144/78
== END 2020-04-28 19:37 | disposition short-term general hospital (02) | DRG 853 ==
LOC: EDUNIT# → ED 14:24 → MS2 20:02
PROVIDERS: ADMIT Internal Medicine; ATTEND Nurse Practitioner Gerontology
PROC: 0QBL0ZZ Excision of Right Tarsal, Open Approach (ICD-10-PCS; principal; 2020-04-19)
PROC: 0KBW0ZZ Excision of Left Foot Muscle, Open Approach (ICD-10-PCS; 2020-04-19)
PROC: 30233N1 Transfusion of Nonautologous Red Blood Cells into Peripheral Vein, Percutaneous Approach (ICD-10-PCS; 2020-04-20)
PROC: 05HY33Z Insertion of Infusion Device into Upper Vein, Percutaneous Approach (ICD-10-PCS; 2020-04-22)
PROC: 0JBB0ZZ Excision of Perineum Subcutaneous Tissue and Fascia, Open Approach (ICD-10-PCS; 2020-04-25)
PROC: 0UBG7ZX Excision of Vagina, Via Natural or Artificial Opening, Diagnostic (ICD-10-PCS; 2020-04-25)
PROC: 0U9G70Z Drainage of Vagina with Drainage Device, Via Natural or Artificial Opening (ICD-10-PCS; 2020-04-25)
PROC: 0DJD8ZZ Inspection of Lower Intestinal Tract, Via Natural or Artificial Opening Endoscopic (ICD-10-PCS; 2020-04-25)
DX: A41.02 Sepsis due to Methicillin resistant Staphylococcus aureus (principal); L89.614 Pressure ulcer of right heel, stage 4; A41.9 Sepsis, unspecified organism; M86.459 Chronic osteomyelitis with draining sinus, unspecified femur; L89.153 Pressure ulcer of sacral region, stage 3; L03.317 Cellulitis of buttock; L03.315 Cellulitis of perineum; L89.222 Pressure ulcer of left hip, stage 2; L89.620 Pressure ulcer of left heel, unstageable; R65.20 Severe sepsis without septic shock; N76.5 Ulceration of vagina; B07.9 Viral wart, unspecified; D50.9 Iron deficiency anemia, unspecified; L97.409 Non-pressure chronic ulcer of unspecified heel and midfoot with unspecified severity; G82.20 Paraplegia, unspecified; N31.9 Neuromuscular dysfunction of bladder, unspecified; N39.498 Other specified urinary incontinence; R33.8 Other retention of urine; G89.4 Chronic pain syndrome; R10.2 Pelvic and perineal pain; E03.9 Hypothyroidism, unspecified; K59.00 Constipation, unspecified; G40.909 Epilepsy, unspecified, not intractable, without status epilepticus; F41.9 Anxiety disorder, unspecified; F32.9 Major depressive disorder, single episode, unspecified; G31.84 Mild cognitive impairment of uncertain or unknown etiology; H54.7 Unspecified visual loss; Z22.322 Carrier or suspected carrier of Methicillin resistant Staphylococcus aureus; Z99.3 Dependence on wheelchair; Z66 Do not resuscitate; Z51.5 Encounter for palliative care; S24.104S Unspecified injury at T11-T12 level of thoracic spinal cord, sequela; Z72.89 Other problems related to lifestyle; V49.9XXS Car occupant (driver) (passenger) injured in unspecified traffic accident, sequela; Z86.718 Personal history of other venous thrombosis and embolism; Z87.891 Personal history of nicotine dependence; Z87.440 Personal history of urinary (tract) infections; Z86.19 Personal history of other infectious and parasitic diseases; Z91.19 Patient's noncompliance with other medical treatment and regimen; Z74.2 Need for assistance at home and no other household member able to render care; R00.0 Tachycardia, unspecified; Z79.82 Long term (current) use of aspirin; Z79.891 Long term (current) use of opiate analgesic; Z79.899 Other long term (current) drug therapy
CPT/HCPCS: 36415; 51702; 71045; 74177; 80048; 80053; 80202; 81001; 81599; 82533; 82607; 82746; 83540; 83605; 84443; 84466; 85014; 85018; 85025; 86850; 86900; 86901; 86922; 87040; 87077; 87086; 87181; 87631; 87640; 93306; 96365; 96366; 96368; 96375; 99223; 99285; A9270; J2060; J3370; J3490; P9016; Q9967; 0202U; 87070; 87205

== ENCOUNTER 2020-04-19 18:03 | Outpatient (CLI) | payer MEDICARE | END 2020-04-19 18:04 | disposition critical access hospital (66) | LOC: EMS 18:03 | PROVIDERS: ATTEND Surgery | DX: R10.30 Lower abdominal pain, unspecified (principal); M25.552 Pain in left hip; M25.551 Pain in right hip; S71.102A Unspecified open wound, left thigh, initial encounter; X58.XXXA Exposure to other specified factors, initial encounter | CPT/HCPCS: A0425; A0429 ==

== ENCOUNTER 2021-11-20 12:21 | Outpatient (CLI) | payer MEDICARE | END 2021-11-20 12:22 | disposition short-term general hospital (02) | LOC: EMS 12:21 | DX: R10.9 Unspecified abdominal pain (principal); R19.7 Diarrhea, unspecified; R39.89 Other symptoms and signs involving the genitourinary system | CPT/HCPCS: A0425; A0429 ==

== ENCOUNTER 2021-11-24 07:06 | Outpatient (CLI) | payer MEDICARE | END 2021-11-24 07:07 | disposition EMS.NT | LOC: EMS 07:06 | DX: Z03.89 Encounter for observation for other suspected diseases and conditions ruled out (principal) ==

== ENCOUNTER 2021-11-28 06:34 | Outpatient (CLI) | payer MEDICARE | END 2021-11-28 06:35 | disposition short-term general hospital (02) | LOC: EMS 06:34 | DX: M79.605 Pain in left leg (principal); M53.3 Sacrococcygeal disorders, not elsewhere classified; L89.159 Pressure ulcer of sacral region, unspecified stage; L89.899 Pressure ulcer of other site, unspecified stage | CPT/HCPCS: A0425; A0429; A0888 ==

== ENCOUNTER 2022-01-02 18:12 | Outpatient (CLI) | payer MEDICARE | END 2022-01-02 18:13 | disposition critical access hospital (66) | LOC: EMS 18:12 | DX: R10.30 Lower abdominal pain, unspecified (principal); R11.2 Nausea with vomiting, unspecified; R19.7 Diarrhea, unspecified; R51.9 Headache, unspecified | CPT/HCPCS: A0425; A0429 ==

== ENCOUNTER 2022-01-02 18:39 | Observation (INO) | payer MEDICARE ==
[2022-01-02 19:12] LABS: BASOPHILS % (AUTO) 0.3 %; EOSINOPHILS % (AUTO) 0.2 %; HCT - HEMATOCRIT 36.6 % (37.0-47.0); HGB - HEMOGLOBIN 11.6 g/dL (12.0-16.0); LYMPHOCYTES # (AUTO) 0.9 10^3/uL (1.5-3.5); LYMPHOCYTES % (AUTO) 13.7 %; MEAN CORPUSCULAR HEMOGLOBIN 29.4 pg (27.0-31.0); MEAN CORPUSCULAR HGB CONC 31.7 g/dL (32.0-36.0); MEAN CORPUSCULAR VOLUME 92.9 fL (81.0-99.0); MEAN PLATELET VOLUME 10.3 fL (7.9-10.8); MONOCYTES # (AUTO) 0.3 10^3/uL (0.0-1.0); MONOCYTES % (AUTO) 5.5 %; PLT - PLATELET COUNT 187 10^3/uL (130-450); RED BLOOD COUNT 3.94 10^6/uL (4.20-5.40); RED CELL DISTRIBUTION WIDTH 12.7 % (12.0-15.0); WHITE BLOOD COUNT 6.2 x10^3/uL (4.8-10.8)
[2022-01-02] MEDS ORDERED: HYDROmorphone 1 MG/ML CARPUJECT IVP STA (19:15)
[2022-01-02] MEDS ORDERED: SODIUM CHLORIDE 0.9% 1,000 ML IV STA (19:15)
[2022-01-02] MEDS ORDERED: ONDANSETRON 4 MG/2 ML VIAL IVP STA (19:15)
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
[2022-01-02 19:25] LABS: ALBUMIN 3.9 g/dL (3.2-5.5); ALBUMIN/GLOBULIN RATIO 1.1 (1.0-2.2); BILIRUBIN,TOTAL 0.6 mg/dL (0.2-1.0); CALCIUM 9.1 mg/dL (8.5-10.3); CREATININE 0.3 mg/dL (0.4-1.0); POTASSIUM 3.5 mmol/L (3.5-5.0); TOTAL PROTEIN 7.6 g/dL (6.7-8.2)
--- NOTE | 2022-01-02 20:30 | CT Report ---
PROCEDURE: HEAD WO INDICATIONS: headache vomit TECHNIQUE: Noncontrast 4.5 mm thick angled axial sections acquired from the foramen magnum to the vertex. For r adiation dose reduction, the following was used: automated exposure control, adjustment of mA and/or kV according to patient size. COMPARISON: None. FINDINGS: Image quality: Excellent. CSF spaces: Basal cisterns are patent. No extra-axial fluid collections. There is mild ex vacuo dil atation of the frontal horn of the right lateral ventricle. Brain: No intracranial hemorrhage, mass, or mass effect. There is extensive encephalomalacia within the right frontal lobe as well as small areas of encephalomalacia in the left frontal and right tempo ral lobes likely representing sequelae of prior trauma. Skull and face: Calvarium and visualized facial bones demonstrate no acute fractures. There are pos tsurgical changes consistent with a prior right frontal craniectomy. Sinuses: Visualized sinuses and mastoids are clear. IMPRESSION: 1. No acute intracranial abnormality. 2. Extensive encephalomalacia primarily involving the right frontal lobe likely representing sequelae of prior trauma. Associated postsurgical changes from prior right frontal craniectomy also demonstra kinza. Reviewed by: Silviano Peraza MD on 01/02/2022 8:28 PM PDT Approved by: Silviano Peraza MD on 01/02/2022 8:28 PM PDT Station ID: [id number]
[2022-01-02] MEDS ORDERED: METOCLOPRAMIDE 10 MG/2 ML VIAL IVP STA (21:19)
--- NOTE | 2022-01-02 21:34 | CT Report ---
PROCEDURE: Abdomen/Pelvis W INDICATIONS: abd pain vomit CONTRAST: IV CONTRAST: Optiray 320 ml: 100 PO CONTRAST: *NO PO CONTRAST TECHNIQUE: After the administration of intravenous contrast, 5 mm thick sections acquired from the diaphragms to the symphysis. 5 mm thick coronal and sagittal reformats were acquired. For radiation dose reducti on, the following was used: automated exposure control, adjustment of mA and/or kV according to jesus ent size. COMPARISON: None. FINDINGS: Image quality: There is extensive metallic streak artifact from patient's surgical hardware within th e thoracolumbar spine limiting evaluation. Lung bases:There is dependent atelectasis and scarring the lung bases. Heart: Heart is normal in size. ABDOMEN: Liver: No mass lesion. Gallbladder:There are a few dependent calcified gallstones in the gallbladder without definite wall thickening or pericholecystic fat stranding. Biliary ducts: No biliary ductal dilatation. Pancreas: Unremarkable. Spleen: Normal in size. Adrenal Glands: No adrenal nodules. Kidneys and Ureters: No hydronephrosis. Stomach and Bowel: Stomach and small bowel loops are normal in caliber and wall thickness. The appen prosper is within normal limits. There is diffuse mild wall thickening throughout the colon with associat ed mild pericolonic fat stranding consistent with an infectious or inflammatory pancolitis. Peritoneum: No abnormal intraperitoneal fluid. No free air. Ventral Wall: No hernia. Abdominal Nodes: No retroperitoneal or mesenteric adenopathy by size criteria. Vessels: Aorta and inferior vena cava are normal in size. PELVIS: Pelvic Organs: Unremarkable. Bladder: Unremarkable. Pelvic Nodes: No enlarged lymph nodes. Miscellaneous: No inguinal hernias. There is a left decubitus ulcer overlying the ischium. There is associated sclerosis and cortical irr egularity within the left ischial compatible sequelae of chronic osteomyelitis. There is also subcuta neous skin thickening overlying the right ischium with a suspected cutaneous ulcer. Bones: There is deformity of the hips bilaterally with posterior subluxation on the left. There is a ssociated articular edema and fluid along the left hip redemonstrated. There is also mild posterior m igration of the right femoral head. Extensive postsurgical changes are demonstrated status post poste rior fixation throughout the visualized lower thoracic spine and along the lumbar spine extending to S1. IMPRESSION: 1. Diffuse colonic wall thickening with mild associated fat stranding consistent with an infectious o r inflammatory pancolitis. 2. Cholelithiasis without CT evidence of acute cholecystitis. 3. Left ischial decubitus ulcer with suspected sequelae of chronic osteomyelitis in the left ischial tuberosity. There is also soft tissue thickening and a suspected cutaneous ulcer overlying the right ischial tuberosity. 4. Extensive postsurgical changes throughout the spine redemonstrated and dysplastic appearance of th e pelvis with posterior subluxation of the left hip. Reviewed by: Silviano Peraza MD on 01/02/2022 9:33 PM PDT Approved by: Silviano Peraza MD on 01/02/2022 9:33 PM PDT Station ID: [id number]
[2022-01-02] MEDS ORDERED: HYDROmorphone 1 MG/ML CARPUJECT ONE (22:48)
[2022-01-02] MEDS ORDERED: ONDANSETRON 4 MG/2 ML VIAL ONE (22:49)
[2022-01-02] MEDS ORDERED: CIPROFLOXACIN 400 MG/200 ML 400 MG/200 ML BAG IV ONE (22:50)
[2022-01-02] MEDS ORDERED: metroNIDAZOLE 500 MG/100 ML 500 MG/100 ML BAG ONE (22:50)
[2022-01-02] MEDS ORDERED: SODIUM CHLORIDE FLUSH 0.9% 10 ML SYRINGE IVP PRN (23:33)
[2022-01-02 23:37] LABS: B. PARAPERTUSSIS- RESP PCR PAN NOT DETECTED; B. PERTUSSIS- RESP PCR PANEL NOT DETECTED; C. PNEUMONIAE- RESP PCR PANEL NOT DETECTED; CORONAVIRUS 229E-RESP PCR NOT DETECTED; CORONAVIRUS HKU1-RESP PCR NOT DETECTED; CORONAVIRUS NL63-RESP PCR NOT DETECTED; CORONAVIRUS OC43-RESP PCR NOT DETECTED; HUMAN METAPNEUMOVIRUS NOT DETECTED; INFLUENZA A- RESP PCR PANEL NOT DETECTED; INFLUENZA B - RESP PCR PANEL NOT DETECTED; M. PNEUMONIAE- RESP PCR PANEL NOT DETECTED; PARAINFLUENZA VIRUS 1 NOT DETECTED; PARAINFLUENZA VIRUS 2 NOT DETECTED; PARAINFLUENZA VIRUS 3 NOT DETECTED; PARAINFLUENZA VIRUS 4 NOT DETECTED; RHINOVIRUS/ENTEROVIRUS NOT DETECTED; RSV- RESP PCR PANEL NOT DETECTED; SARS-CoV-2 -RESP PCR PANEL NOT DETECTED
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
[2022-01-03] MEDS ORDERED: ACETAMINOPHEN 1,000 MG/100 ML 1,000 MG/100 ML BAG IV PRN (00:32)
[2022-01-03] MEDS: D5NS W/20 MEQ KCL 1,000 ML IV SCH ×3 (00:48→20:22)
[2022-01-03] MEDS: SODIUM CHLORIDE FLUSH 0.9% 10 ML SYRINGE IVP SCH ×4 (00:49→23:08)
[2022-01-03] MEDS: ONDANSETRON 4 MG/2 ML VIAL IVP PRN ×3 (01:03→20:18)
[2022-01-03] MEDS: PROCHLORPERAZINE 10 MG/2 ML VIAL IVP PRN ×4 (02:10→23:20)
[2022-01-03] MEDS: HYDROmorphone 0.5 MG/0.5 ML SYRINGE IVP PRN ×7 (02:11→23:20)
[2022-01-03 05:06] LABS: BASOPHILS % (AUTO) 0.2 %; HCT - HEMATOCRIT 33.5 % (37.0-47.0); HGB - HEMOGLOBIN 10.3 g/dL (12.0-16.0); LYMPHOCYTES # (AUTO) 1.3 10^3/uL (1.5-3.5); LYMPHOCYTES % (AUTO) 20.4 %; MEAN CORPUSCULAR HEMOGLOBIN 29.1 pg (27.0-31.0); MEAN CORPUSCULAR HGB CONC 30.7 g/dL (32.0-36.0); MEAN CORPUSCULAR VOLUME 94.6 fL (81.0-99.0); MEAN PLATELET VOLUME 10.5 fL (7.9-10.8); MONOCYTES # (AUTO) 0.4 10^3/uL (0.0-1.0); MONOCYTES % (AUTO) 5.7 %; NEUTROPHILS # (AUTO) 4.5 10^3/uL (1.5-6.6); NEUTROPHILS % (AUTO) 73.4 %; PLT - PLATELET COUNT 175 10^3/uL (130-450); RED BLOOD COUNT 3.54 10^6/uL (4.20-5.40); RED CELL DISTRIBUTION WIDTH 12.8 % (12.0-15.0); WHITE BLOOD COUNT 6.1 x10^3/uL (4.8-10.8)
[2022-01-03 05:14] LABS: CALCIUM 8.6 mg/dL (8.5-10.3); CREATININE 0.4 mg/dL (0.4-1.0); MAGNESIUM 1.8 mg/dL (1.7-2.8); POTASSIUM 3.6 mmol/L (3.5-5.0)
[2022-01-03] MEDS: metroNIDAZOLE 500 MG/100 ML 500 MG/100 ML BAG IV SCH ×3 (05:18→21:21)
[2022-01-03] MEDS: CIPROFLOXACIN 400 MG/200 ML 400 MG/200 ML BAG IV SCH ×2 (08:50→20:22)
[2022-01-03] MEDS: ENOXAPARIN 40 MG/0.4 ML SYRINGE SUBQ SCH (08:50)
[2022-01-03] MEDS: LACTOBACILLUS RHAMNOSUS GG CAPSULE PO SCH (17:24)
[2022-01-03] MEDS ORDERED: ZINC OXIDE 20% OINT 30 GM TUBE TOP PRN (17:27)
--- NOTE | 2022-01-03 18:52 | PROVIDER PROGRESS NOTE ---
Subjective - Prog Note Date Prog Note Date: 01/03/22 Prog Note Time: 18:52 - Subjective Pt reports feeling: Improved Subjective: She is improved and that she is no longer having vomiting. However she still has nausea, does not want to eat. And is having frequent stools. No fever, no chills. No elevated white cell count. Current Medications - Current Medications Current Medications: Active Medications Enoxaparin Sodium (Enoxaparin 40 Mg/0.4 Ml Syringe) 40 mg SUBQ DAILY [facility] Last Admin: 01/03/22 08:50 Dose: 40 mg Hydromorphone HCl (Hydromorphone 0.5 Mg/0.5 Ml Syringe) 0.5 mg IVP Q2H PRN PRN Reason: PAIN Last Admin: 01/03/22 16:19 Dose: 0.5 mg Potassium Chloride/Dextrose/Sod Cl (D5ns W/20 Meq Kcl) 1,000 mls @ 100 mls/hr IV .Q10H [facility] Last Admin: 01/03/22 13:07 Dose: 100 mls/hr Ciprofloxacin (Cipro 400 Mg/200 Ml) 400 mg in 200 mls @ 200 mls/hr IV Q12H [facility] Last Infusion: 01/03/22 15:34 Dose: Infused Metronidazole (Flagyl 500 Mg/100 Ml) 500 mg in 100 mls @ 100 mls/hr IV Q8H [facility] Last Infusion: 01/03/22 15:34 Dose: Infused Acetaminophen (Acetaminophen) 1,000 mg in 100 mls @ 400 mls/hr IV Q6HR PRN PRN Reason: PAIN Last Infusion: 01/03/22 01:05 Dose: Infused Lactobacillus Rhamnosus (Lactobacillus Rhamnosus Gg Capsule) 1 cap PO DAILY [facility] Last Admin: 01/03/22 17:24 Dose: 1 cap Multi-Ingredient Ointment (Zinc Oxide 20% Oint 30 Gm Tube) 1 applic TOP PRN PRN PRN Reason: Skin Care Ondansetron HCl (Ondansetron 4 Mg/2 Ml Vial) 4 mg IVP Q6HR PRN PRN Reason: Nausea / Vomiting Last Admin: 01/03/22 12:59 Dose: 4 mg Prochlorperazine Edisylate (Prochlorperazine 10 Mg/2 Ml Vial) 10 mg IVP Q6HR PRN PRN Reason: Nausea / Vomiting Last Admin: 01/03/22 16:19 Dose: 10 mg Sodium Chloride (Sodium Chloride Flush 0.9% 10 Ml Syringe) 10 ml IVP PRN PRN PRN Reason: NEEDED PER PROVIDER ORDERS Sodium Chloride (Sodium Chloride Flush 0.9% 10 Ml Syringe) 10 ml IVP 0100,0900,1700 [facility] Last Admin: 01/03/22 16:19 Dose: Not Given Aspirin EC [Ecotrin] 325 mg PO DAILY PRN 10/07/12 Multivitamin [Multivitamins] 1 tab PO DAILY 10/07/12 Sennosides [Senna] 8.6 mg PO DAILY 10/07/12 Oxybutynin Chloride 5 mg PO TID 02/19/19 Morphine Sulfate [Luly] 20 mg PO BID 04/21/20 Objective - Vital Signs/Intake & Output Reviewed Vital Signs: Yes Vital Signs: Vital Signs x48h Temp Pulse Resp BP BP Pulse Ox 01/03/22 16:09 36.6 C 108 H 16 157/87 H 97 01/03/22 12:00 2.4 C L 71 14 127/61 98 Intake & Output: Intake & Output 12/31/21 01/01/22 01/02/22 01/03/22 23:59 23:59 23:59 23:59 Intake Total 1000 1740 Output Total 2075 Balance 1000 -335 - Objective General Appearance: positive: Alert, Mild distress (From nausea.), Other (Cachectic appearing. Rolled over on her left side) Eyes Bilateral: positive: PERRL, EOMI ENT: positive: No signs of dehydration Neck: positive: No JVD. negative: Stiff neck Respiratory: positive: No respiratory distress. negative: Wheezes, Rales Cardiovascular: positive: Regular rate & rhythm. negative: Gallop/S4, Friction rub Abdomen: positive: No organomegaly, Nml bowel sounds, No distention, Tenderness (Mild and diffuse, but no rebound or guarding) Skin: positive: Warm, Dry Extremities: positive: Full ROM, No pedal edema Neurologic/Psychiatric: positive: Oriented x3, CN's nml (2-12). negative: Motor nml (She appears profoundly weak) - Lab Results Fish Bones: 01/03/22 04:52 01/03/22 04:52 Other Labs: Lab Results x24hrs 01/03/22 01/03/22 01/03/22 Range/Units 04:52 04:52 04:52 WBC 6.1 (4.8-10.8) x10^3/uL RBC 3.54 L (4.20-5.40) 10^6/uL Hgb 10.3 L (12.0-16.0) g/dL Hct 33.5 L (37.0-47.0) % MCV 94.6 (81.0-99.0) fL MCH 29.1 (27.0-31.0) pg MCHC 30.7 L (32.0-36.0) g/dL RDW 12.8 (12.0-15.0) % Plt Count 175 (130-450) 10^3/uL MPV 10.5 (7.9-10.8) fL Neut # (Auto) 4.5 (1.5-6.6) 10^3/uL Lymph # (Auto) 1.3 L (1.5-3.5) 10^3/uL [place] # (Auto) 0.4 (0.0-1.0) 10^3/uL Eos # (Auto) 0.0 (0.0-0.7) 10^3/uL Baso # (Auto) 0.0 (0.0-0.1) 10^3/uL Absolute Nucleated RBC 0.00 x10^3/uL Nucleated RBC % 0.0 /100WBC Sodium 137 (135-145) mmol/L Potassium 3.6 (3.5-5.0) mmol/L Chloride 105 (101-111) mmol/L Carbon Dioxide 25 (21-32) mmol/L Anion Gap 7.0 (6-13) BUN 9 (6-20) mg/dL Creatinine 0.4 (0.4-1.0) mg/dL Estimated GFR (MDRD) 160 (>89) Glucose 116 H (70-100) mg/dL Lactic Acid (0.5-2.2) mmol/L Calcium 8.6 (8.5-10.3) mg/dL Magnesium 1.8 (1.7-2.8) mg/dL Total Bilirubin (0.2-1.0) mg/dL AST (10-42) IU/L ALT (10-60) IU/L Alkaline Phosphatase (42-121) IU/L Total Protein (6.7-8.2) g/dL Albumin (3.2-5.5) g/dL Globulin (2.1-4.2) g/dL Albumin/Globulin Ratio (1.0-2.2) Lipase (22-51) U/L TSH 2.67 (0.34-5.60) uIU/mL Nasal Adenovirus (PCR) Nasal B. parapertussis DNA (PCR) Nasal Coronavir 229E PCR Nasal Coronavir HKU1 PCR Nasal Coronavir NL63 PCR Nasal Coronavir OC43 PCR Nasal Enterovir/Rhinovir PCR Nasal Influenza B PCR Nasal Influenza A PCR Nasal Parainfluen 1 PCR Nasal Parainfluen 2 PCR Nasal Parainfluen 3 PCR Nasal Parainfluen 4 PCR Nasal RSV (PCR) Nasal B.pertussis DNA PCR Nasal C.pneumoniae (PCR) Adair Human Metapneumo PCR Nasal M.pneumoniae (PCR) Nasal SARS-CoV-2 (PCR) 01/02/22 01/02/22 01/02/22 Range/Units 23:45 22:30 19:06 WBC (4.8-10.8) x10^3/uL RBC (4.20-5.40) 10^6/uL Hgb (12.0-16.0) g/dL Hct (37.0-47.0) % MCV (81.0-99.0) fL MCH (27.0-31.0) pg MCHC (32.0-36.0) g/dL RDW (12.0-15.0) % Plt Count (130-450) 10^3/uL MPV (7.9-10.8) fL Neut # (Auto) (1.5-6.6) 10^3/uL Lymph # (Auto) (1.5-3.5) 10^3/uL Torrance # (Auto) (0.0-1.0) 10^3/uL Eos # (Auto) (0.0-0.7) 10^3/uL Baso # (Auto) (0.0-0.1) 10^3/uL Absolute Nucleated RBC x10^3/uL Nucleated RBC % /100WBC Sodium 137 (135-145) mmol/L Potassium 3.5 (3.5-5.0) mmol/L Chloride 102 (101-111) mmol/L Carbon Dioxide 23 (21-32) mmol/L Anion Gap 12.0 (6-13) BUN 11 (6-20) mg/dL Creatinine 0.3 L (0.4-1.0) mg/dL Estimated GFR (MDRD) 223 (>89) Glucose 114 H (70-100) mg/dL Lactic Acid 1.0 (0.5-2.2) mmol/L Calcium 9.1 (8.5-10.3) mg/dL Magnesium 2.0 (1.7-2.8) mg/dL Total Bilirubin 0.6 (0.2-1.0) mg/dL AST 24 (10-42) IU/L ALT 26 (10-60) IU/L Alkaline Phosphatase 87 (42-121) IU/L Total Protein 7.6 (6.7-8.2) g/dL Albumin 3.9 (3.2-5.5) g/dL Globulin 3.7 (2.1-4.2) g/dL Albumin/Globulin Ratio 1.1 (1.0-2.2) Lipase 44 (22-51) U/L TSH (0.34-5.60) uIU/mL Nasal Adenovirus (PCR) NOT DETECTED Nasal B. parapertussis DNA (PCR) NOT DETECTED Nasal Coronavir 229E PCR NOT DETECTED Nasal Coronavir HKU1 PCR NOT DETECTED Nasal Coronavir NL63 PCR NOT DETECTED Nasal Coronavir OC43 PCR NOT DETECTED Nasal Enterovir/Rhinovir PCR NOT DETECTED Nasal Influenza B PCR NOT DETECTED Nasal Influenza A PCR NOT DETECTED Nasal Parainfluen 1 PCR NOT DETECTED Nasal Parainfluen 2 PCR NOT DETECTED Nasal Parainfluen 3 PCR NOT DETECTED Nasal Parainfluen 4 PCR NOT DETECTED Nasal RSV (PCR) NOT DETECTED Nasal B.pertussis DNA PCR NOT DETECTED Nasal C.pneumoniae (PCR) NOT DETECTED Adair Human Metapneumo PCR NOT DETECTED Nasal M.pneumoniae (PCR) NOT DETECTED Nasal SARS-CoV-2 (PCR) NOT DETECTED 01/02/22 Range/Units 19:06 WBC 6.2 (4.8-10.8) x10^3/uL RBC 3.94 L (4.20-5.40) 10^6/uL Hgb 11.6 L (12.0-16.0) g/dL Hct 36.6 L (37.0-47.0) % MCV 92.9 (81.0-99.0) fL MCH 29.4 (27.0-31.0) pg MCHC 31.7 L (32.0-36.0) g/dL RDW 12.7 (12.0-15.0) % Plt Count 187 (130-450) 10^3/uL MPV 10.3 (7.9-10.8) fL Neut # (Auto) 5.0 (1.5-6.6) 10^3/uL Lymph # (Auto) 0.9 L (1.5-3.5) 10^3/uL [place] # (Auto) 0.3 (0.0-1.0) 10^3/uL Eos # (Auto) 0.0 (0.0-0.7) 10^3/uL Baso # (Auto) 0.0 (0.0-0.1) 10^3/uL Absolute Nucleated RBC 0.00 x10^3/uL Nucleated RBC % 0.0 /100WBC Sodium (135-145) mmol/L Potassium (3.5-5.0) mmol/L Chloride (101-111) mmol/L Carbon Dioxide (21-32) mmol/L Anion Gap (6-13) BUN (6-20) mg/dL Creatinine (0.4-1.0) mg/dL Estimated GFR (MDRD) (>89) Glucose (70-100) mg/dL Lactic Acid (0.5-2.2) mmol/L Calcium (8.5-10.3) mg/dL Magnesium (1.7-2.8) mg/dL Total Bilirubin (0.2-1.0) mg/dL AST (10-42) IU/L ALT (10-60) IU/L Alkaline Phosphatase (42-121) IU/L Total Protein (6.7-8.2) g/dL Albumin (3.2-5.5) g/dL Globulin (2.1-4.2) g/dL Albumin/Globulin Ratio (1.0-2.2) Lipase (22-51) U/L TSH (0.34-5.60) uIU/mL Nasal Adenovirus (PCR) Nasal B. parapertussis DNA (PCR) Nasal Coronavir 229E PCR Nasal Coronavir HKU1 PCR Nasal Coronavir NL63 PCR Nasal Coronavir OC43 PCR Nasal Enterovir/Rhinovir PCR Nasal Influenza B PCR Nasal Influenza A PCR Nasal Parainfluen 1 PCR Nasal Parainfluen 2 PCR Nasal Parainfluen 3 PCR Nasal Parainfluen 4 PCR Nasal RSV (PCR) Nasal B.pertussis DNA PCR Nasal C.pneumoniae (PCR) Adair Human Metapneumo PCR Nasal M.pneumoniae (PCR) Nasal SARS-CoV-2 (PCR) ABX Reporting Has patient been on IV antibiotics over the past 48 hours?: Yes Assessment/Plan - Problem List (1) Pancolitis Impression: She had been on bowel rest starting from admission. Today we advance her diet to clears. While she is tolerating that and has not had any more emesis, she just does not want to eat. We will continue her on IV fluids, IV antiemetics, empiric antibiotic therapy. She is [place]. She will remain in observation s tatus. Diarrhea has not been significant.In spite of the impressive CT findings, the patient's abdominal exam is mild in severity, and white cell count is still normal. (2) Paraplegia following spinal cord injury Conclusion/Plan: As per Hx Turn and reposition prn ordered (3) Osteomyelitis of pelvic region Conclusion/Plan: Medications are still not been reconciled as of this afternoon. We will talk to pharmacy tomorrow. Will try to keep the sacral decubitus and area clean, as much as possible, given the diarrhea. The patient was asked what [facility] nurses do at their visits and she could describe no details at all. We will contact [facility] for their input Possibly a Wound Nurse consult may be needed (4) Decubitus ulcer of both heels Conclusion/Plan: Will order bandaging and continue any home management for this, will check what care [facility] provides her (5) Sacral decubitus ulcer Conclusion/Plan: Will try to keep the sacral decubitus and area clean, as much as possible, given the diarrhea. The patient was asked what [facility] nurses do at their visits and she could describe no details at all. We will contact [facility] for their input Possibly a Wound Nurse consult may be needed Will order diapering and continue any home management for this Qualifiers: Pressure injury stage: stage 3 Qualified Code(s): L89.153 - Pressure ulcer of sacral region, stage 3 (6) Chronic indwelling Stephens catheter Conclusion/Plan: She has a very complex anatomy in jher pelvis and the Stephens will not be changed. (7) Hypothyroidism Conclusion/Plan: We will continue her home thyroid replacement. Check TSH with morning labs
[2022-01-04 04:58] LABS: EOSINOPHILS # (AUTO) 0.1 10^3/uL (0.0-0.7); EOSINOPHILS % (AUTO) 1.6 %; HCT - HEMATOCRIT 31.7 % (37.0-47.0); HGB - HEMOGLOBIN 9.9 g/dL (12.0-16.0); LYMPHOCYTES # (AUTO) 1.5 10^3/uL (1.5-3.5); LYMPHOCYTES % (AUTO) 49.7 %; MEAN CORPUSCULAR HEMOGLOBIN 29.6 pg (27.0-31.0); MEAN CORPUSCULAR HGB CONC 31.2 g/dL (32.0-36.0); MEAN CORPUSCULAR VOLUME 94.6 fL (81.0-99.0); MEAN PLATELET VOLUME 10.3 fL (7.9-10.8); MONOCYTES # (AUTO) 0.3 10^3/uL (0.0-1.0); NEUTROPHILS # (AUTO) 1.2 10^3/uL (1.5-6.6); NEUTROPHILS % (AUTO) 37.4 %; PLT - PLATELET COUNT 148 10^3/uL (130-450); RED BLOOD COUNT 3.35 10^6/uL (4.20-5.40); WHITE BLOOD COUNT 3.1 x10^3/uL (4.8-10.8)
[2022-01-04 05:53] LABS: BUN - BLOOD UREA NITROGEN < 5 mg/dL (6-20); CALCIUM 8.4 mg/dL (8.5-10.3); CARBON DIOXIDE - CO2 26 mmol/L (21-32); CHLORIDE 108 mmol/L (101-111); CREATININE 0.4 mg/dL (0.4-1.0); GFR - MDRD 160 (>89); GLUCOSE 105 mg/dL (70-100); POTASSIUM 3.4 mmol/L (3.5-5.0); SODIUM 140 mmol/L (135-145)
[2022-01-04] MEDS: metroNIDAZOLE 500 MG/100 ML 500 MG/100 ML BAG IV SCH (06:02)
[2022-01-04] MEDS: HYDROmorphone 0.5 MG/0.5 ML SYRINGE IVP PRN ×2 (06:03→08:58)
[2022-01-04] MEDS: D5NS W/20 MEQ KCL 1,000 ML IV SCH (06:03)
[2022-01-04] MEDS: PROCHLORPERAZINE 10 MG/2 ML VIAL IVP PRN (06:03)
[2022-01-04] MEDS: LACTOBACILLUS RHAMNOSUS GG CAPSULE PO SCH (08:57)
[2022-01-04] MEDS: ENOXAPARIN 40 MG/0.4 ML SYRINGE SUBQ SCH (08:57)
[2022-01-04] MEDS: CIPROFLOXACIN 400 MG/200 ML 400 MG/200 ML BAG IV SCH (08:58)
[2022-01-04] MEDS: SODIUM CHLORIDE FLUSH 0.9% 10 ML SYRINGE IVP SCH (08:59)
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
[2022-01-04] MEDS ORDERED: HYDROmorphone 1 MG/ML CARPUJECT IM STA (11:05)
[2022-01-04 17:06] VITALS: BP 170/81
== END 2022-01-04 14:05 | disposition home or self-care (01) ==
LOC: EDUNIT# → ED 18:39 → MS2 23:33
PROVIDERS: ADMIT Internal Medicine; ATTEND Specialist
DX: K51.00 Ulcerative (chronic) pancolitis without complications (principal); G82.20 Paraplegia, unspecified; S24.104S Unspecified injury at T11-T12 level of thoracic spinal cord, sequela; L89.624 Pressure ulcer of left heel, stage 4; L89.614 Pressure ulcer of right heel, stage 4; L89.153 Pressure ulcer of sacral region, stage 3; Z96.0 Presence of urogenital implants; E03.9 Hypothyroidism, unspecified; Z87.891 Personal history of nicotine dependence; Z66 Do not resuscitate; Z20.822 Contact with and (suspected) exposure to COVID-19; N31.9 Neuromuscular dysfunction of bladder, unspecified; R46.89 Other symptoms and signs involving appearance and behavior; M86.68 Other chronic osteomyelitis, other site; M54.9 Dorsalgia, unspecified; G89.29 Other chronic pain; F32.A Depression, unspecified; F41.9 Anxiety disorder, unspecified
CPT/HCPCS: 36415; 70450; 74177; 80048; 80053; 83605; 83690; 83735; 84443; 85025; 87633; 96365; 96366; 96367; 96368; 96372; 96375; 96376; 99285; A9270; G0378; J0131; J1170; J1650; J2765; Q9967

== ENCOUNTER 2022-01-19 09:43 | Outpatient (CLI) | payer MEDICARE | END 2022-01-19 09:44 | disposition critical access hospital (66) | LOC: EMS 09:43 | DX: R51.9 Headache, unspecified (principal); R11.0 Nausea; R53.1 Weakness; Z20.822 Contact with and (suspected) exposure to COVID-19 | CPT/HCPCS: A0425; A0429 ==

== ENCOUNTER 2022-01-27 09:46 | Outpatient (CLI) | payer MEDICARE | END 2022-01-27 09:47 | disposition critical access hospital (66) | LOC: EMS 09:46 | DX: R19.7 Diarrhea, unspecified (principal); R52 Pain, unspecified; R11.2 Nausea with vomiting, unspecified; R53.1 Weakness; Z99.3 Dependence on wheelchair | CPT/HCPCS: A0425; A0429 ==

== ENCOUNTER 2022-01-27 10:14 | Emergency (ER) | payer MEDICARE ==
--- NOTE | 2022-01-27 10:26 | ED Physician Documentation ---
PD HPI NVD - Stated complaint Stated Complaint: ABD PX - Chief complaint Chief Complaint: Abd Pain - History obtained from History obtained from: Patient, EMS - History of Present Illness Timing - onset: Today, Yesterday Timing - duration: Days (1) Timing - details: Abrupt onset, Still present Associated symptoms: Abdominal pain (cramping lower abd), Loss of appetite, Other (loose diarrheal stool 4-5 times since yesterday. Started on abx for UTI 3 days ago. Had been on Doxy week ago or so for same and had upset stomach from that.). No: Fever, Melena, Hematochezia Contributing factors: Recent antibiotics. No: Sick contact, Travel Improved by: BM (cramping decreases). No: Eating Worsened by: No: Eating Similar symptoms before: Diagnosis (had similar symptoms month ago with Dx of colitis on CT.) Recently seen: Clinic, Emergency Dept Review of Systems Constitutional: denies: Fever, Chills Nose: denies: Rhinorrhea / runny nose, Congestion Throat: denies: Sore throat Respiratory: denies: Cough GI: reports: Abdominal Pain, Nausea, Diarrhea. denies: Abdominal Swelling, Constipation, Bloody / black stool : reports: Other (indwelling ramirez). denies: Hematuria Musculoskeletal: reports: Back pain PD PAST MEDICAL HISTORY - Past Medical History Cardiovascular: Deep vein thrombosis Respiratory: None Neuro: Head injury, Migraines, Seizure disorder Endocrine/Autoimmune: HyPOthyroidism GI: Hepatitis, Cholelithiasis BAKER: Other : Retention, Kidney stones, Other HEENT: Chronic vision loss Psych: Depression, Anxiety Musculoskeletal: Osteoarthritis, Paraplegia, Fatigue, Chronic back pain, Other Derm: Other - Past Surgical History Past Surgical History: Yes Ortho: Spine surgery /BAKER: Tubal ligation HEENT: Tonsil/Adenoidectomy Derm: Skin grafts - Present Medications Home Medications: Ambulatory Orders Medication Instructions Recorded Confirmed Oxybutynin Chloride 5 mg PO TID 02/19/19 01/19/22 Doxycycline Monohydrate 100 mg PO DAILY 01/19/22 01/19/22 Levetiracetam [Keppra] 1,000 mg PO DAILY 01/19/22 01/19/22 HYDROcod/ACETAM 5/325 [[place] 5/325] 1 ea PO Q6H PRN #10 tablet 01/27/22 L.acid/L.casei/B.bif/B.aiyana/Fos 1 each PO TID 7 Days #20 cap 01/27/22 [Probiotic Blend Capsule] Ondansetron Odt [Zofran] 4 mg TL Q6H PRN #10 tablet 01/27/22 Potassium Citrate [Potassium] 99 mg PO DAILY 15 Days #15 cap 01/27/22 - Allergies Allergies/Adverse Reactions: Allergies Allergy/AdvReac Type Severity Reaction Status Date / Time Penicillins Allergy Mild Rash Verified 01/27/22 10:22 chlorhexidine Allergy Unknown Itching Verified 01/27/22 10:22 gabapentin Allergy Unknown Verified 01/27/22 10:22 linezolid Allergy Nausea Verified 01/27/22 10:22 - Social History Does the pt smoke?: No Smoking Status: Never smoker Does the pt drink ETOH?: No Does the pt have substance abuse?: No - Immunizations Immunizations are current?: Yes - POLST Patient has POLST: Yes POLST Status: DNR (No intubation or CPR.) PD ED PE NORMAL - Vitals Vital signs reviewed: Yes - General General: Alert and oriented X 3, Well developed/nourished, Other (appears uncomfortable due to stomach pain.) - Neck Neck: Supple, no meningeal sign, No adenopathy - Cardiac Cardiac: RRR, No murmur - Respiratory Respiratory: Clear bilaterally - Abdomen Abdomen: Soft, Non distended, Other (tender without guarding mid abdomen). No: Normal bowel sounds (decreased) - Back Back: No CVA TTP - Derm Derm: Normal color, Warm and dry - Extremities Extremities: No edema, Other (lower extremity weakness. ) - Neuro Neuro: Alert and oriented X 3 Results - Vitals Vitals: Vital Signs - 24 hr 01/27/22 01/27/22 01/27/22 10:18 11:05 14:19 Temperature 36.7 C Heart Rate 89 80 68 Respiratory 20 23 20 Rate Blood Pressure 145/73 H 146/66 H O2 Saturation 99 100 99 Oxygen O2 Source Room air - Labs Labs: Laboratory Tests 01/27/22 01/27/22 01/27/22 10:59 10:59 10:59 WBC 6.4 RBC 3.99 L Hgb 11.3 L Hct 36.1 L MCV 90.5 MCH 28.3 MCHC 31.3 L RDW 13.7 Plt Count 165 MPV 11.2 H Neut # (Auto) 4.5 Lymph # (Auto) 1.3 L [place] # (Auto) 0.5 Eos # (Auto) 0.2 Baso # (Auto) 0.0 Absolute Nucleated RBC 0.00 Nucleated RBC % 0.0 Sodium 140 Potassium 2.9 L Chloride 104 Carbon Dioxide 25 Anion Gap 11.0 BUN 13 Creatinine 0.4 Estimated GFR (MDRD) 160 Glucose 91 Lactic Acid 1.0 Calcium 9.1 Magnesium 2.0 Total Bilirubin 0.8 AST 28 ALT 30 Alkaline Phosphatase 66 Total Protein 7.3 Albumin 3.7 Globulin 3.6 Albumin/Globulin Ratio 1.0 Lipase 48 - Rads (name of study) abd/pelvic CT Radiology: Prelim report reviewed (no signs of colitis. No acute problems. ), See rad report PD MEDICAL DECISION MAKING - ED course Complexity details: reviewed old records, reviewed results, re-evaluated patient (improved symptoms. No obvious admission criteria. She was able to transfer from bed to wheelchair in ER. So seems improved strength compared to home earlier. ), considered differential, d/w patient Departure - Departure Disposition: Home, Self Care Clinical Impression: Antibiotic-associated diarrhea, Abdominal cramping, Nausea, Hypokalemia, General weakness Condition: Stable Record reviewed to determine appropriate education?: Yes Follow-Up: JEANNE KWONG PA-C [Primary Care Provider] - Prescriptions: HYDROcod/ACETAM 5/325 [[place] 5/325] 1 ea PO Q6H PRN #10 tablet PRN Reason: Pain Potassium Citrate [Potassium] 99 mg PO DAILY 15 Days #15 cap L.acid/L.casei/B.bif/B.aiynaa/Fos [Probiotic Blend Capsule] 1 each PO TID 7 Days #20 cap Ondansetron Odt [Zofran] 4 mg TL Q6H PRN #10 tablet PRN Reason: Nausea / Vomiting Comments: I would stop your current antibiotics. This is presumably the cause for the diarrhea and your abdominal cramps and pains. Your CT scan does not show any signs of intestinal inflammation (colitis). I presume we could improve your symptoms with stopping the antibiotic and adding probiotics over the next several days to week along with some Lomotil antidiarrhea medicine. Add ondansetron if needed for nausea and Tylenol or hydrocodone if needed for pains and cramps. Your potassium level was low as well and may be adding to your general weakness. I would suggest a potassium supplement daily for the next 10 days or so. Stay well-hydrated. Recheck if not improving well over the next few days. I transmitted prescriptions to your preferred pharmacy. I am prescribing a short course of narcotic pain medication for you. These are potentially dangerous and addictive medications that should be used carefully. These medications may constipate you. Take an [id number] stool softener such as docusate twice daily with plenty of water while taking these medications. If you go 24 hours without a bowel movement, take [id number] MiraLAX, per package instructions. Do not drink or drive while taking these medications. If you received narcotic or sedating medications while in the emergency department do not drive for 24 hours. Store this medication in a safe, secure place and out of reach of children. It is a violation of federal law to give or sell this medication to another person or to use in a manner other than prescribed. The ED will not refill narcotic prescriptions, including prescriptions lost or stolen. You can dispose of unwanted medications at the [facility]'s office or at several pharmacies such as [facility]. Discharge Date/Time: 01/27/22 15:40
[2022-01-27] MEDS ORDERED: SODIUM CHLORIDE 0.9% 1,000 ML IV STA (10:31)
[2022-01-27] MEDS ORDERED: ONDANSETRON 4 MG/2 ML VIAL IVP STA (10:31)
--- OUTSIDE RECORDS SUMMARY | 2022-01-27 10:44 | EXTERNAL MEDICAL SUMMARY RPT | Continuity of Care Document ---
:1955 Author Organization [place] Address [address] [place] [address] Phone Allergies and Intolerances date description facility type (no date) Mild [facility] (unknown) (no date) Penicillins [facility] (unknown) (no date) chlorhexidine [facility] (unknown) (no date) ertapenem [facility] (unknown) (no date) lactose [facility] (unknown) (no date) linezolid [facility] (unknown) Encounters No information. Functional Status No information. Immunizations No information. Medications date description facility [id number] cefpodoxime 200 MG Oral Tablet [facility] [id number] Acetaminophen 325 MG / Hydrocodone Is [facility] Bitartrate 5 MG Oral Tablet Problems No information. Procedures date description facility [id number] General Physician [facility] [id number] [facility] Physician [facility] [id number] [facility] Results/Labs test date author facility value unit interpret ation Result panel 1 (unknown) (no date) (unknown) (unknown) 1+ (units (unkn own) unknown) (unknown) (no date) (unknown) (unknown) 1.0 E.U./dL (unkn own) (unknown) (no date) (unknown) (unknown) 1.015 (units (unkn own) unknown) (unknown) (no date) (unknown) (unknown) 2+ (units (unkn own) unknown) (unknown) (no date) (unknown) (unknown) 3+ (units (unkn own) unknown) (unknown) (no date) (unknown) (unknown) 8.5 (units (unkn own) unknown) (unknown) (no date) (unknown) (unknown) CLOUDY (units (unkn own) unknown) (unknown) (no date) (unknown) (unknown) NEGATIVE (units (unkn own) unknown) (unknown) (no date) (unknown) (unknown) NEGATIVE g/dL (unkn own) (unknown) (no date) (unknown) (unknown) POSITIVE (units (unkn own) unknown) (unknown) (no date) (unknown) (unknown) YELLOW (units (unkn own) unknown) Result panel 2 (unknown) (no date) (unknown) (unknown) 1+ (units (unkn own) unknown) (unknown) (no date) (unknown) (unknown) 1.0 E.U./dL (unkn own) (unknown) (no date) (unknown) (unknown) 1.015 (units (unkn own) unknown) (unknown) (no date) (unknown) (unknown) 10-30/HPF (units (unk nown) unknown) (unknown) (no date) (unknown) (unknown) 2+ (units (unkn own) unknown) (unknown) (no date) (unknown) (unknown) 3+ (units (unkn own) unknown) (unknown) (no date) (unknown) (unknown) 30-100/HPF (units (un known) unknown) (unknown) (no date) (unknown) (unknown) 8.5 (units (unkn own) unknown) (unknown) (no date) (unknown) (unknown) CLOUDY (units (unkn own) unknown) (unknown) (no date) (unknown) (unknown) Many (>30) (units (un known) unknown) (unknown) (no date) (unknown) (unknown) Moderate (units (unkn own) unknown) (unknown) (no date) (unknown) (unknown) NEGATIVE (units (unkn own) unknown) (unknown) (no date) (unknown) (unknown) NEGATIVE g/dL (unkn own) (unknown) (no date) (unknown) (unknown) POSITIVE (units (unkn own) unknown) (unknown) (no date) (unknown) (unknown) Specimen (units (unkn own) Cultured unknown) (unknown) (no date) (unknown) (unknown) YELLOW (units (unkn own) unknown) Result panel 3 (unknown) (no (unknown) (unknown) (no value) (units (unk nown) date) unknown) (unknown) (no (unknown) (unknown) Date of Service: (units (unknown) date) 11/17/21 unknown) (unknown) (no (unknown) (unknown) (no value) (units (unk nown) date) unknown) (unknown) (no (unknown) (unknown) 10 mg PO TID (units (u nknown) date) unknown) (unknown) (no (unknown) (unknown) 17.2 mg PO (units (unk nown) date) BEDTIME Qty: 60 unknown) 5RF (unknown) (no (unknown) (unknown) 50 mcg PO DAILY (units (unknown) date) Qty: 30 5RF unknown) (unknown) (no (unknown) (unknown) 500 mg .ROUTE (units ( unknown) date) .COMPLEX unknown) (unknown) (no (unknown) (unknown) 500 mg crush and (units (unknown) date) apply topically unknown) to wound twice weekly; (unknown) (no (unknown) (unknown) Allergies (units (unkn own) date) unknown) (unknown) (no (unknown) (unknown) Diabetes (units (unkno wn) date) mellitus unknown) (unknown) (no (unknown) (unknown) ED Orders (units (unkn own) date) unknown) (unknown) (no (unknown) (unknown) Emergency Report (units (unknown) date) unknown) (unknown) (no (unknown) (unknown) Home Medications (units (unknown) date) unknown) (unknown) (no (unknown) (unknown) [facility] (units (unknown) date) [address] [place] [address] unknown) [place] [address] (unknown) (no (unknown) (unknown) Lab Results (units (un known) date) unknown) (unknown) (no (unknown) (unknown) Previous Rx's (units ( unknown) date) unknown) (unknown) (no (unknown) (unknown) Rx Instructions: (units (unknown) date) unknown) (unknown) (no (unknown) (unknown) Vital Signs - 8 (units (unknown) date) hr unknown) (unknown) (no (unknown) (unknown) (no value) (units (unk nown) date) unknown) (unknown) (no (unknown) (unknown) 11/17/21 (units (unkno wn) date) Range/Units unknown) (unknown) (no (unknown) (unknown) 23:30 (units (unkno wn) date) unknown) (unknown) (no (unknown) (unknown) levothyroxine (units ( unknown) date) [Synthroid] 50 unknown) mcg tablet (unknown) (no (unknown) (unknown) metronidazole (units ( unknown) date) 500 mg tablet unknown) (unknown) (no (unknown) (unknown) oxybutynin (units (unk nown) date) chloride 5 mg unknown) tablet (unknown) (no (unknown) (unknown) sennosides (units (unk nown) date) [senna] 8.6 mg unknown) tablet (unknown) (no (unknown) (unknown) 11/17/21 (units (unkno wn) date) unknown) (unknown) (no (unknown) (unknown) Medication (units (unk nown) date) Instructions unknown) Recorded (unknown) (no (unknown) (unknown) Medication (units (unk nown) date) Instructions unknown) Recorded Confirmed (unknown) (no (unknown) (unknown) (Synthroid) (units (un known) date) unknown) (unknown) (no (unknown) (unknown) 11/17/21 23:16 (units (unknown) date) unknown) (unknown) (no (unknown) (unknown) 11/17/21 23:30 (units (unknown) date) unknown) (unknown) (no (unknown) (unknown) 0807 (units (unkno wn) date) unknown) (unknown) (no (unknown) (unknown) 23:12 (units (unkno wn) date) unknown) (unknown) (no (unknown) (unknown) AF (paroxysmal (units (unknown) date) atrial unknown) fibrillation) (unknown) (no (unknown) (unknown) Abrasion, left (units (unknown) date) lower leg, unknown) initial encounter (unknown) (no (unknown) (unknown) Abscess and (units (un known) date) cellulitis of unknown) gluteal region (unknown) (no (unknown) (unknown) Acute UTI (units (unkn own) date) unknown) (unknown) (no (unknown) (unknown) Acute (units (unkno wn) date) hypokalemia unknown) (unknown) (no (unknown) (unknown) Acute narcotic (units (unknown) date) withdrawal unknown) without complication (unknown) (no (unknown) (unknown) Age/Sex: 66 / F (units (unknown) date) unknown) (unknown) (no (unknown) (unknown) Allergy/AdvReac (units (unknown) date) Type Severity unknown) Reaction Status Date / Time (unknown) (no (unknown) (unknown) Anemia (units (unkno wn) date) unknown) (unknown) (no (unknown) (unknown) Bilateral lower (units (unknown) date) leg cellulitis unknown) (unknown) (no (unknown) (unknown) Bleeding from (units ( unknown) date) PICC line unknown) (unknown) (no (unknown) (unknown) Blood Pressure (units (unknown) date) 179/84 H 11/17/21 unknown) 23:12 (unknown) (no (unknown) (unknown) Blood Pressure (units (unknown) date) 179/84 H unknown) (unknown) (no (unknown) (unknown) Brother Mental (units (unknown) date) health problem unknown) (unknown) (no (unknown) (unknown) Cat scratch of (units (unknown) date) face unknown) (unknown) (no (unknown) (unknown) Cellulitis (units (unk nown) date) unknown) (unknown) (no (unknown) (unknown) Chief complaint: (units (unknown) date) Urogenital-Female unknown) (unknown) (no (unknown) (unknown) 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 (unknown) (no (unknown) (unknown) Chronic (units (unkno wn) date) osteomyelitis unknown) involving multiple sites (unknown) (no (unknown) (unknown) Chronic skin (units (u nknown) date) ulcer unknown) (unknown) (no (unknown) (unknown) 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 [employer] unknown) Stat (unknown) (no (unknown) (unknown) Contusion of (units (u nknown) date) left lower leg, unknown) initial encounter (unknown) (no (unknown) (unknown) Course (units (unkno wn) date) unknown) (unknown) (no (unknown) (unknown) Cutaneous (units (unkn own) date) abscess of unknown) buttock (unknown) (no (unknown) (unknown) : 1955 (units (unknown) date) Acct:[id number] unknown) (unknown) (no (unknown) (unknown) Deep vein (units (unkn own) date) thrombosis unknown) (unknown) (no (unknown) (unknown) Departure (units (unkn own) date) unknown) (unknown) (no (unknown) (unknown) Discharge Plan (units (unknown) date) unknown) (unknown) (no (unknown) (unknown) Dizziness (units (unkn own) date) unknown) (unknown) (no (unknown) (unknown) ER Physician: (units ( unknown) date) Noah Jessica unknown) D.O. (unknown) (no (unknown) (unknown) Exam (units (unkno wn) date) unknown) (unknown) (no (unknown) (unknown) Fall (units (unkno wn) date) unknown) (unknown) (no (unknown) (unknown) Family History (units (unknown) date) (Reviewed unknown) 11/13/19 @ 12:52 by CHRISTIAN Molina) (unknown) (no (unknown) (unknown) General (units (unkno wn) date) unknown) (unknown) (no (unknown) (unknown) Grandfather (units (un known) date) Cancer unknown) (unknown) (no (unknown) (unknown) HPI - General (units ( unknown) date) Adult unknown) (unknown) (no (unknown) (unknown) Hematoma of left (units (unknown) date) lower extremity unknown) (unknown) (no (unknown) (unknown) Hemiparesis (units (un known) date) unknown) (unknown) (no (unknown) (unknown) Hepatitis C (units (un known) date) () unknown) (unknown) (no (unknown) (unknown) Neo Pritchard MD (units (unknown) date) [Primary Care unknown) Provider] - (unknown) (no (unknown) (unknown) Initial Vital (units ( unknown) date) Signs unknown) (unknown) (no (unknown) (unknown) Initial Vital (units ( unknown) date) Signs: unknown) (unknown) (no (unknown) (unknown) Lab Data (units (unkno wn) date) unknown) (unknown) (no (unknown) (unknown) Labs: (units (unkno wn) date) unknown) (unknown) (no (unknown) (unknown) Left leg (units (unkno wn) date) cellulitis unknown) (unknown) (no (unknown) (unknown) Measles (units (unkno wn) date) unknown) (unknown) (no (unknown) (unknown) Medical Decision (units (unknown) date) Making unknown) (unknown) (no (unknown) (unknown) Medical History (units (unknown) date) (Updated 11/17/21 unknown) @ 00:00 by ) (unknown) (no (unknown) (unknown) Mode of arrival: (units (unknown) date) Wheelchair unknown) (unknown) (no (unknown) (unknown) 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) (unknown) (no (unknown) (unknown) Multiple falls (units (unknown) date) unknown) (unknown) (no (unknown) (unknown) No Action (units (unkn own) date) unknown) (unknown) (no (unknown) (unknown) Ordered: (units (unkno wn) date) unknown) (unknown) (no (unknown) (unknown) Orders (units (unkno wn) date) unknown) (unknown) (no (unknown) (unknown) Oxygen Delivery (units (unknown) date) Method 11/17/21 unknown) 23:12 (unknown) (no (unknown) (unknown) Oxygen Delivery (units (unknown) date) Method Room Air unknown) (unknown) (no (unknown) (unknown) PICC (units (unkno wn) date) (peripherally unknown) inserted central catheter) in place (unknown) (no (unknown) (unknown) Paraplegia (units (unk nown) date) (02/14/16) unknown) (unknown) (no (unknown) (unknown) Paraplegic (units (unk nown) date) spinal paralysis unknown) (unknown) (no (unknown) (unknown) Patient History (units (unknown) date) unknown) (unknown) (no (unknown) (unknown) Patient: (units (unkno wn) date) Karina Diallo MR#: unknown) [id number] (unknown) (no (unknown) (unknown) Penicillins (units (un known) date) Allergy Unknown unknown) Verified 11/09/19 14:38 (unknown) (no (unknown) (unknown) Post-op bleeding (units (unknown) date) unknown) (unknown) (no (unknown) (unknown) Prescriptions: (units (unknown) date) unknown) (unknown) (no (unknown) (unknown) Pressure ulcer (units (unknown) date) of contiguous unknown) site of back, buttock and hip, stage 2 (unknown) (no (unknown) (unknown) Pressure ulcer (units (unknown) date) of left thigh unknown) (unknown) (no (unknown) (unknown) Pulse Oximetry (units (unknown) date) 99 11/17/21 23:12 unknown) (unknown) (no (unknown) (unknown) Pulse Oximetry (units (unknown) date) 99 unknown) (unknown) (no (unknown) (unknown) Pulse Rate 91 H (units (unknown) date) 11/17/21 23:12 unknown) (unknown) (no (unknown) (unknown) Pulse Rate 91 H (units (unknown) date) unknown) (unknown) (no (unknown) (unknown) Referrals: (units (unk nown) date) unknown) (unknown) (no (unknown) (unknown) Related Data (units (u nknown) date) unknown) (unknown) (no (unknown) (unknown) Respiratory Rate (units (unknown) date) 17 11/17/21 23:12 unknown) (unknown) (no (unknown) (unknown) Respiratory Rate (units (unknown) date) 17 unknown) (unknown) (no (unknown) (unknown) Retention of (units (u nknown) date) urine, unknown) unspecified (unknown) (no (unknown) (unknown) Seasonal (units (unkno wn) date) allergies unknown) (unknown) (no (unknown) (unknown) Signed By: (units (unk nown) date) unknown) (unknown) (no (unknown) (unknown) Sister Mental (units ( unknown) date) health problem unknown) (unknown) (no (unknown) (unknown) Skin ulcer of (units ( unknown) date) ankle unknown) (unknown) (no (unknown) (unknown) Smoking Status: (units (unknown) date) Current some day unknown) smoker (unknown) (no (unknown) (unknown) Smoking Status: (units (unknown) date) Current some day unknown) smoker (unknown) (no (unknown) (unknown) Social History (units (unknown) date) (Reviewed unknown) 01/29/19 @ 14:00 by Noah Jessica DO) (unknown) (no (unknown) (unknown) Source: patient (units (unknown) date) unknown) (unknown) (no (unknown) (unknown) Stated (units (unkno wn) date) complaint: unknown) UTI/LIGHT HEADED/WITHDRAWS (unknown) (no (unknown) (unknown) Substance Use (units ( unknown) date) Type: marijuana unknown) (unknown) (no (unknown) (unknown) Temperature 97.8 (units (unknown) date) F 11/17/21 23:12 unknown) (unknown) (no (unknown) (unknown) Temperature 97.8 (units (unknown) date) F unknown) (unknown) (no (unknown) (unknown) Time Seen by (units (u nknown) date) Provider: unknown) 11/17/21 23:06 (unknown) (no (unknown) (unknown) Toe laceration (units (unknown) date) unknown) (unknown) (no (unknown) (unknown) Triple Phos (units (un known) date) Crystals Moderate unknown) (unknown) (no (unknown) (unknown) UTI (urinary (units (u nknown) date) tract infection) unknown) (unknown) (no (unknown) (unknown) UTI (urinary (units (u nknown) date) tract infection) unknown) due to Enterococcus (unknown) (no (unknown) (unknown) Ur Culture (units (unk nown) date) Indicated? unknown) Specimen cultured (unknown) (no (unknown) (unknown) Ur Leukocyte (units (u nknown) date) Esterase 1+ H unknown) (NEGATIVE) (unknown) (no (unknown) (unknown) Ur Specific (units (un known) date) Duarte 1.015 unknown) (1.000-1.035) (unknown) (no (unknown) (unknown) Urinalysis and (units (unknown) date) Microscopic Stat unknown) (unknown) (no (unknown) (unknown) Urine Appearance (units (unknown) date) Cloudy unknown) (unknown) (no (unknown) (unknown) Urine Bacteria (units (unknown) date) Many (>30) H unknown) (None) (unknown) (no (unknown) (unknown) Urine Bilirubin (units (unknown) date) Negative unknown) (NEGATIVE) (unknown) (no (unknown) (unknown) Urine Color (units (un known) date) Yellow unknown) (unknown) (no (unknown) (unknown) Urine Culture (units ( unknown) date) Stat unknown) (unknown) (no (unknown) (unknown) Urine Glucose (units ( unknown) date) (UA) Negative unknown) (Negative) g/dL (unknown) (no (unknown) (unknown) Urine Ketones 1+ (units (unknown) date) H (NEGATIVE) unknown) (unknown) (no (unknown) (unknown) Urine Nitrate (units ( unknown) date) Positive H unknown) (Negative) (unknown) (no (unknown) (unknown) Urine Occult (units (u nknown) date) Blood 3+ H unknown) (Negative) (unknown) (no (unknown) (unknown) Urine Protein 2+ (units (unknown) date) H (Negative) unknown) (unknown) (no (unknown) (unknown) Urine RBC (units (unkn own) date) 10-30/hpf H unknown) (0-5/HPF) (unknown) (no (unknown) (unknown) Urine (units (unkno wn) date) Urobilinogen 1.0 unknown) (0.2) E.U./dL (unknown) (no (unknown) (unknown) Urine WBC (units (unkn own) date) 30-100/hpf H unknown) (0-5/HPF) (unknown) (no (unknown) (unknown) Urine pH 8.5 H (units (unknown) date) (4.5-8.0) unknown) (unknown) (no (unknown) (unknown) Vital Signs (units (un known) date) unknown) (unknown) (no (unknown) (unknown) Vital signs: (units (u nknown) date) unknown) (unknown) (no (unknown) (unknown) Wound of sacral (units (unknown) date) region, unknown) subsequent encounter (08/29/15) (unknown) (no (unknown) (unknown) alcohol intake (units (unknown) date) frequency: unknown) holidays/special occasions only (unknown) (no (unknown) (unknown) alcohol intake: (units (unknown) date) never unknown) (unknown) (no (unknown) (unknown) chlorhexidine (units ( unknown) date) Allergy Mild unknown) ITCHING Verified 11/14/19 03:00 (unknown) (no (unknown) (unknown) ertapenem (units (unkn own) date) Allergy Severe unknown) SEIZURES Verified 11/09/19 14:38 (unknown) (no (unknown) (unknown) household (units (unkn own) date) members: none unknown) (unknown) (no (unknown) (unknown) lactose AdvReac (units (unknown) date) Unknown Verified unknown) 11/09/19 14:38 (unknown) (no (unknown) (unknown) levothyroxine 50 (units (unknown) date) mcg tablet 50 mcg unknown) PO DAILY #30 tabs 10/12/19 (unknown) (no (unknown) (unknown) linezolid (units (unkn own) date) [LINEZOLID] unknown) Allergy Mild Verified 11/09/19 14:38 (unknown) (no (unknown) (unknown) metronidazole (units ( unknown) date) 500 mg tablet 500 unknown) mg .Route .COMPLEX 03/17/20 (unknown) (no (unknown) (unknown) oxybutynin (units (unk nown) date) chloride 5 mg unknown) tablet 10 mg PO TID 03/17/20 (unknown) (no (unknown) (unknown) sennosides 8.6 (units (unknown) date) mg tablet (senna) unknown) 17.2 mg PO BEDTIME #60 tabs 03/17/20 Result panel 4 (unknown) (no (unknown) (unknown) (no value) (units (unk nown) date) unknown) (unknown) (no (unknown) (unknown) Date of Service: (units (unknown) date) 11/17/21 unknown) (unknown) (no (unknown) (unknown) (no value) (units (unk nown) date) unknown) (unknown) (no (unknown) (unknown) <Electronically (units (unknown) date) signed by Noah Jessica D.O.> (unknown) (no (unknown) (unknown) 11/18/21 0518 (units ( unknown) date) unknown) (unknown) (no (unknown) (unknown) 10 mg PO TID (units (u nknown) date) unknown) (unknown) (no (unknown) (unknown) 100 mg PO Q12H 5 (units (unknown) date) Days Qty: 10 0RF unknown) (unknown) (no (unknown) (unknown) 17.2 mg PO BEDTIME (units (unknown) date) Qty: 60 5RF unknown) (unknown) (no (unknown) (unknown) 50 mcg PO DAILY (units (unknown) date) Qty: 30 5RF unknown) (unknown) (no (unknown) (unknown) 500 mg .ROUTE (units ( unknown) date) .COMPLEX unknown) (unknown) (no (unknown) (unknown) 500 mg crush and (units (unknown) date) apply topically to unknown) wound twice weekly; (unknown) (no (unknown) (unknown) Allergies (units (unkn own) date) unknown) (unknown) (no (unknown) (unknown) Diabetes mellitus (units (unknown) date) unknown) (unknown) (no (unknown) (unknown) Documented By: RL (units (unknown) date) unknown) (unknown) (no (unknown) (unknown) ED Orders (units (unkn own) date) unknown) (unknown) (no (unknown) (unknown) Emergency Report (units (unknown) date) unknown) (unknown) (no (unknown) (unknown) Home Medications (units (unknown) date) unknown) (unknown) (no (unknown) (unknown) [facility] (units (unknown) date) [address] [place] [address] unknown) [place] [address] (unknown) (no (unknown) (unknown) Lab Results (units (un known) date) unknown) (unknown) (no (unknown) (unknown) Last Admin: (units (un known) date) 11/18/21 00:17 unknown) Dose: 100 mg (unknown) (no (unknown) (unknown) Previous Rx's (units ( unknown) date) unknown) (unknown) (no (unknown) (unknown) Rx Instructions: (units (unknown) date) unknown) (unknown) (no (unknown) (unknown) Stop: 11/18/21 (units (unknown) date) 00:04 unknown) (unknown) (no (unknown) (unknown) Vital Signs - 8 hr (units (unknown) date) unknown) (unknown) (no (unknown) (unknown) must administer (units (unknown) date) with a meal/food unknown) (unknown) (no (unknown) (unknown) (no value) (units (unk nown) date) unknown) (unknown) (no (unknown) (unknown) 11/17/21 (units (unkno wn) date) Range/Units unknown) (unknown) (no (unknown) (unknown) 23:30 (units (unkno wn) date) unknown) (unknown) (no (unknown) (unknown) levothyroxine (units ( unknown) date) [Synthroid] 50 mcg unknown) tablet (unknown) (no (unknown) (unknown) metronidazole 500 (units (unknown) date) mg tablet unknown) (unknown) (no (unknown) (unknown) nitrofurantoin (units (unknown) date) monohyd/m-cryst unknown) [Macrobid] 100 mg capsule (unknown) (no (unknown) (unknown) oxybutynin (units (unk nown) date) chloride 5 mg unknown) tablet (unknown) (no (unknown) (unknown) sennosides [senna] (units (unknown) date) 8.6 mg tablet unknown) (unknown) (no (unknown) (unknown) 11/17/21 (units (unkno wn) date) unknown) (unknown) (no (unknown) (unknown) Acute UTI (units (unkn own) date) unknown) (unknown) (no (unknown) (unknown) Medication (units (unk nown) date) Instructions unknown) Recorded (unknown) (no (unknown) (unknown) Medication (units (unk nown) date) Instructions unknown) Recorded Confirmed (unknown) (no (unknown) (unknown) and agreement. (units (unknown) date) unknown) (unknown) (no (unknown) (unknown) not appear to be (units (unknown) date) infected and she unknown) does have follow-up with this as an (unknown) (no (unknown) (unknown) (Synthroid) (units (un known) date) unknown) (unknown) (no (unknown) (unknown) 00:16 (units (unkno wn) date) unknown) (unknown) (no (unknown) (unknown) 11/17/21 23:16 (units (unknown) date) unknown) (unknown) (no (unknown) (unknown) 11/17/21 23:30 (units (unknown) date) unknown) (unknown) (no (unknown) (unknown) 0807 (units (unkno wn) date) unknown) (unknown) (no (unknown) (unknown) 23:03 11/17/21 (units (unknown) date) unknown) (unknown) (no (unknown) (unknown) 23:04 (units (unkno wn) date) unknown) (unknown) (no (unknown) (unknown) 23:04 11/18/21 (units (unknown) date) unknown) (unknown) (no (unknown) (unknown) 23:12 11/17/21 (units (unknown) date) unknown) (unknown) (no (unknown) (unknown) AF (paroxysmal (units (unknown) date) atrial unknown) fibrillation) (unknown) (no (unknown) (unknown) Abrasion, left (units (unknown) date) lower leg, initial unknown) encounter (unknown) (no (unknown) (unknown) Abscess and (units (un known) date) cellulitis of unknown) gluteal region (unknown) (no (unknown) (unknown) Activity (units (unkno wn) date) Restrictions/Additi unknown) onal Instructions: (unknown) (no (unknown) (unknown) Acute UTI (units (unkn own) date) unknown) (unknown) (no (unknown) (unknown) Acute hypokalemia (units (unknown) date) unknown) (unknown) (no (unknown) (unknown) Acute narcotic (units (unknown) date) withdrawal without unknown) complication (unknown) (no (unknown) (unknown) Age/Sex: 66 / F (units (unknown) date) unknown) (unknown) (no (unknown) (unknown) Allergy/AdvReac (units (unknown) date) Type Severity unknown) Reaction Status Date / Time (unknown) (no (unknown) (unknown) Anemia (units (unkno wn) date) unknown) (unknown) (no (unknown) (unknown) Auscultation: (units ( unknown) date) clear to unknown) auscultation bilaterally (unknown) (no (unknown) (unknown) Bilateral lower (units (unknown) date) leg cellulitis unknown) (unknown) (no (unknown) (unknown) Bleeding from PICC (units (unknown) date) line unknown) (unknown) (no (unknown) (unknown) Blood Pressure (units (unknown) date) 176/82 H unknown) (unknown) (no (unknown) (unknown) Blood Pressure (units (unknown) date) 179/84 H 179/84 H unknown) (unknown) (no (unknown) (unknown) Brother Mental (units (unknown) date) health problem unknown) (unknown) (no (unknown) (unknown) Cardio (units (unkno wn) date) unknown) (unknown) (no (unknown) (unknown) Cardiovascular (units (unknown) date) unknown) (unknown) (no (unknown) (unknown) Cardiovascular: (units (unknown) date) Reports system unknown) reviewed and no additional complaints, except as (unknown) (no (unknown) (unknown) Cat scratch of (units (unknown) date) face unknown) (unknown) (no (unknown) (unknown) Cellulitis (units (unk nown) date) unknown) (unknown) (no (unknown) (unknown) Chief complaint: (units (unknown) date) Urogenital-Female unknown) (unknown) (no (unknown) (unknown) 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 (unknown) (no (unknown) (unknown) Chronic (units (unkno wn) date) osteomyelitis unknown) involving multiple sites (unknown) (no (unknown) (unknown) Chronic skin ulcer (units (unknown) date) unknown) (unknown) (no (unknown) (unknown) Clinical (units (unkno wn) date) Impression: unknown) (unknown) (no (unknown) (unknown) Constitutional (units (unknown) date) unknown) (unknown) (no (unknown) (unknown) Constitutional: (units (unknown) date) Denies fever(s) unknown) (unknown) (no (unknown) (unknown) 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 A prescription for (unknown) (no (unknown) (unknown) Contusion of left (units (unknown) date) lower leg, initial unknown) encounter (unknown) (no (unknown) (unknown) Course (units (unkno wn) date) unknown) (unknown) (no (unknown) (unknown) Cutaneous abscess (units (unknown) date) of buttock unknown) (unknown) (no (unknown) (unknown) : 1955 (units (unknown) date) Acct:[id number] unknown) (unknown) (no (unknown) (unknown) Deep vein (units (unkn own) date) thrombosis unknown) (unknown) (no (unknown) (unknown) Departure (units (unkn own) date) unknown) (unknown) (no (unknown) (unknown) Discharge Plan (units (unknown) date) unknown) (unknown) (no (unknown) (unknown) Discontinued (units (u nknown) date) Medications unknown) (unknown) (no (unknown) (unknown) Dizziness (units (unkn own) date) unknown) (unknown) (no (unknown) (unknown) ER Physician: (units ( unknown) date) Noah Jessica D.O. unknown) (unknown) (no (unknown) (unknown) Effort + (units (unkno wn) date) Inspection: normal unknown) respiratory effort (unknown) (no (unknown) (unknown) Exam (units (unkno wn) date) unknown) (unknown) (no (unknown) (unknown) Fall (units (unkno wn) date) unknown) (unknown) (no (unknown) (unknown) Family History (units (unknown) date) (Reviewed 11/13/19 unknown) @ 12:52 by CHRISTIAN Molina) (unknown) (no (unknown) (unknown) Gastrointestinal (units (unknown) date) unknown) (unknown) (no (unknown) (unknown) Gastrointestinal: (units (unknown) date) Reports system unknown) reviewed and no additional complaints, except (unknown) (no (unknown) (unknown) General (units (unkno wn) date) unknown) (unknown) (no (unknown) (unknown) General: patient (units (unknown) date) alert, patient unknown) awake and patient oriented x3 (unknown) (no (unknown) (unknown) Grandfather Cancer (units (unknown) date) unknown) (unknown) (no (unknown) (unknown) HENMT (units (unkno wn) date) unknown) (unknown) (no (unknown) (unknown) HPI - General (units ( unknown) date) Adult unknown) (unknown) (no (unknown) (unknown) HPI narrative: (units (unknown) date) unknown) (unknown) (no (unknown) (unknown) Head: normal to (units (unknown) date) inspection and unknown) normocephalic (unknown) (no (unknown) (unknown) Hematoma of left (units (unknown) date) lower extremity unknown) (unknown) (no (unknown) (unknown) Hemiparesis (units (un known) date) unknown) (unknown) (no (unknown) (unknown) Hepatitis C (units (un known) date) () unknown) (unknown) (no (unknown) (unknown) Her current Stephens (units (unknown) date) catheter was unknown) removed and replaced by nursing staff. A urine (unknown) (no (unknown) (unknown) History of Present (units (unknown) date) Illness unknown) (unknown) (no (unknown) (unknown) Neo Pritchard MD (units (unknown) date) [Primary Care unknown) Provider] - (unknown) (no (unknown) (unknown) Initial Vital (units ( unknown) date) Signs unknown) (unknown) (no (unknown) (unknown) Initial Vital (units ( unknown) date) Signs: unknown) (unknown) (no (unknown) (unknown) Instructions: DI (units (unknown) date) for Urinary Tract unknown) Infection (UTI) (unknown) (no (unknown) (unknown) Integumentary/[place] (units (unknown) date) sts unknown) (unknown) (no (unknown) (unknown) Lab Data (units (unkno wn) date) unknown) (unknown) (no (unknown) (unknown) Labs: (units (unkno wn) date) unknown) (unknown) (no (unknown) (unknown) Left leg (units (unkno wn) date) cellulitis unknown) (unknown) (no (unknown) (unknown) MDM Narrative (units ( unknown) date) unknown) (unknown) (no (unknown) (unknown) Measles (units (unkno wn) date) unknown) (unknown) (no (unknown) (unknown) Medical Decision (units (unknown) date) Making unknown) (unknown) (no (unknown) (unknown) Medical History (units (unknown) date) (Reviewed 11/18/21 unknown) @ 05:15 by Noah Jessica DO) (unknown) (no (unknown) (unknown) Medical decision (units (unknown) date) making narrative: unknown) (unknown) (no (unknown) (unknown) Mode of arrival: (units (unknown) date) Wheelchair unknown) (unknown) (no (unknown) (unknown) 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) (unknown) (no (unknown) (unknown) Multiple falls (units (unknown) date) unknown) (unknown) (no (unknown) (unknown) Neuro (units (unkno wn) date) unknown) (unknown) (no (unknown) (unknown) Neurologic (units (unk nown) date) unknown) (unknown) (no (unknown) (unknown) Neurologic: (units (un known) date) Reports system unknown) reviewed and no additional complaints, except as (unknown) (no (unknown) (unknown) New (units (unkno wn) date) unknown) (unknown) (no (unknown) (unknown) Nitrofurantoin (units (unknown) date) Macrocrystals unknown) (Nitrofurantoin Er 100 Mg Capsule) 100 mg PO NOW (unknown) (no (unknown) (unknown) No Action (units (unkn own) date) unknown) (unknown) (no (unknown) (unknown) ONE (units (unkno wn) date) unknown) (unknown) (no (unknown) (unknown) Ordered: (units (unkno wn) date) unknown) (unknown) (no (unknown) (unknown) Orders (units (unkno wn) date) unknown) (unknown) (no (unknown) (unknown) Other: (units (unkno wn) date) unknown) (unknown) (no (unknown) (unknown) Oxygen Delivery (units (unknown) date) Method unknown) (unknown) (no (unknown) (unknown) Oxygen Delivery (units (unknown) date) Method Room Air unknown) (unknown) (no (unknown) (unknown) PICC (peripherally (units (unknown) date) inserted central unknown) catheter) in place (unknown) (no (unknown) (unknown) Paraplegia (units (unk nown) date) (02/14/16) unknown) (unknown) (no (unknown) (unknown) Paraplegic spinal (units (unknown) date) paralysis unknown) (unknown) (no (unknown) (unknown) Patient (units (unkno wn) date) Disposition: Home unknown) (unknown) (no (unknown) (unknown) Patient History (units (unknown) date) unknown) (unknown) (no (unknown) (unknown) Patient does have (units (unknown) date) deep ulcerations to unknown) the left sacrum/buttocks. There is no (unknown) (no (unknown) (unknown) Patient is a (units (un known) date) 66-year-old female unknown) who arrives by private vehicle for evaluation of (unknown) (no (unknown) (unknown) Patient: (units (unkno wn) date) Karina Diallo MR#: unknown) [id number] (unknown) (no (unknown) (unknown) Penicillins (units (un known) date) Allergy Unknown unknown) Verified 11/09/19 14:38 (unknown) (no (unknown) (unknown) Post-op bleeding (units (unknown) date) unknown) (unknown) (no (unknown) (unknown) Prescriptions: (units (unknown) date) unknown) (unknown) (no (unknown) (unknown) Pressure ulcer of (units (unknown) date) contiguous site of unknown) back, buttock and hip, stage 2 (unknown) (no (unknown) (unknown) Pressure ulcer of (units (unknown) date) left thigh unknown) (unknown) (no (unknown) (unknown) Pulse Oximetry 99 (units (unknown) date) 11/17/21 23:03 unknown) (unknown) (no (unknown) (unknown) Pulse Oximetry 98 (units (unknown) date) 100 unknown) (unknown) (no (unknown) (unknown) Pulse Oximetry 99 (units (unknown) date) 99 unknown) (unknown) (no (unknown) (unknown) Pulse Rate 90 (units ( unknown) date) 11/17/21 23:03 unknown) (unknown) (no (unknown) (unknown) Pulse Rate 89 71 (units (unknown) date) unknown) (unknown) (no (unknown) (unknown) Pulse Rate 91 H 90 (units (unknown) date) unknown) (unknown) (no (unknown) (unknown) Rate: regular rate (units (unknown) date) unknown) (unknown) (no (unknown) (unknown) Referrals: (units (unk nown) date) unknown) (unknown) (no (unknown) (unknown) Related Data (units (u nknown) date) unknown) (unknown) (no (unknown) (unknown) Resp (units (unkno wn) date) unknown) (unknown) (no (unknown) (unknown) Respiratory (units (un known) date) unknown) (unknown) (no (unknown) (unknown) Respiratory Rate (units (unknown) date) 16 unknown) (unknown) (no (unknown) (unknown) Respiratory Rate (units (unknown) date) 17 unknown) (unknown) (no (unknown) (unknown) Respiratory: (units (u nknown) date) Reports system unknown) reviewed and no additional complaints, except as (unknown) (no (unknown) (unknown) Retention of (units (u nknown) date) urine, unspecified unknown) (unknown) (no (unknown) (unknown) Review of Systems (units (unknown) date) unknown) (unknown) (no (unknown) (unknown) Rhythm: regular (units (unknown) date) rhythm unknown) (unknown) (no (unknown) (unknown) Seasonal allergies (units (unknown) date) unknown) (unknown) (no (unknown) (unknown) She is a (units (unkno wn) date) paraplegic. And is unknown) wheelchair bound. She has an indwelling Stephens (unknown) (no (unknown) (unknown) Signed By: (units (unk nown) date) unknown) (unknown) (no (unknown) (unknown) Sister Mental (units ( unknown) date) health problem unknown) (unknown) (no (unknown) (unknown) Skin (units (unkno wn) date) unknown) (unknown) (no (unknown) (unknown) Skin ulcer of (units ( unknown) date) ankle unknown) (unknown) (no (unknown) (unknown) Skin/Breast: (units (u nknown) date) Reports system unknown) reviewed and no additional complaints, except as (unknown) (no (unknown) (unknown) Smoking Status: (units (unknown) date) Current some day unknown) smoker (unknown) (no (unknown) (unknown) Smoking Status: (units (unknown) date) Current some day unknown) smoker (unknown) (no (unknown) (unknown) Social History (units (unknown) date) (Reviewed 11/18/21 unknown) @ 05:16 by Noah Jessica DO) (unknown) (no (unknown) (unknown) Source: patient (units (unknown) date) unknown) (unknown) (no (unknown) (unknown) Stated complaint: (units (unknown) date) UTI/LIGHT unknown) HEADED/WITHDRAWS (unknown) (no (unknown) (unknown) Substance Use (units ( unknown) date) Type: marijuana unknown) (unknown) (no (unknown) (unknown) Temperature (units (un known) date) unknown) (unknown) (no (unknown) (unknown) Temperature 97.8 F (units (unknown) date) unknown) (unknown) (no (unknown) (unknown) Time Seen by (units (u nknown) date) Provider: 11/17/21 unknown) 23:06 (unknown) (no (unknown) (unknown) Toe laceration (units (unknown) date) unknown) (unknown) (no (unknown) (unknown) Triple Phos (units (un known) date) Crystals Moderate unknown) (unknown) (no (unknown) (unknown) UTI (urinary tract (units (unknown) date) infection) unknown) (unknown) (no (unknown) (unknown) UTI (urinary tract (units (unknown) date) infection) due to unknown) Enterococcus (unknown) (no (unknown) (unknown) Ur Culture (units (unk nown) date) Indicated? Specimen unknown) cultured (unknown) (no (unknown) (unknown) Ur Leukocyte (units (u nknown) date) Esterase 1+ H unknown) (NEGATIVE) (unknown) (no (unknown) (unknown) Ur Specific (units (un known) date) Duarte 1.015 unknown) (1.000-1.035) (unknown) (no (unknown) (unknown) Urinalysis and (units (unknown) date) Microscopic Stat unknown) (unknown) (no (unknown) (unknown) Urine Appearance (units (unknown) date) Cloudy unknown) (unknown) (no (unknown) (unknown) Urine Bacteria (units (unknown) date) Many (>30) H (None) unknown) (unknown) (no (unknown) (unknown) Urine Bilirubin (units (unknown) date) Negative (NEGATIVE) unknown) (unknown) (no (unknown) (unknown) Urine Color Yellow (units (unknown) date) unknown) (unknown) (no (unknown) (unknown) Urine Culture Stat (units (unknown) date) unknown) (unknown) (no (unknown) (unknown) Urine Glucose (UA) (units (unknown) date) Negative (Negative) unknown) g/dL (unknown) (no (unknown) (unknown) Urine Ketones 1+ H (units (unknown) date) (NEGATIVE) unknown) (unknown) (no (unknown) (unknown) Urine Nitrate (units ( unknown) date) Positive H unknown) (Negative) (unknown) (no (unknown) (unknown) Urine Occult Blood (units (unknown) date) 3+ H (Negative) unknown) (unknown) (no (unknown) (unknown) Urine Protein 2+ H (units (unknown) date) (Negative) unknown) (unknown) (no (unknown) (unknown) Urine RBC (units (unkn own) date) 10-30/hpf H unknown) (0-5/HPF) (unknown) (no (unknown) (unknown) Urine Urobilinogen (units (unknown) date) 1.0 (0.2) E.U./dL unknown) (unknown) (no (unknown) (unknown) Urine WBC (units (unkn own) date) 30-100/hpf H unknown) (0-5/HPF) (unknown) (no (unknown) (unknown) Urine pH 8.5 H (units (unknown) date) (4.5-8.0) unknown) (unknown) (no (unknown) (unknown) Visit Report (units (u nknown) date) Forms: Patient unknown) Portal/API (unknown) (no (unknown) (unknown) Vital Signs (units (un known) date) unknown) (unknown) (no (unknown) (unknown) Vital signs: (units (u nknown) date) unknown) (unknown) (no (unknown) (unknown) Wound of sacral (units (unknown) date) region, subsequent unknown) encounter (08/29/15) (unknown) (no (unknown) (unknown) about her care. (units (unknown) date) She is scheduled to unknown) see wound care at the beginning of next (unknown) (no (unknown) (unknown) alcohol intake (units (unknown) date) frequency: unknown) holidays/special occasions only (unknown) (no (unknown) (unknown) alcohol intake: (units (unknown) date) never unknown) (unknown) (no (unknown) (unknown) antibiotics was (units (unknown) date) [facility] Please start taking them as directed. A (unknown) (no (unknown) (unknown) as documented (units ( unknown) date) unknown) (unknown) (no (unknown) (unknown) capsule (Macrobid) (units (unknown) date) unknown) (unknown) (no (unknown) (unknown) catheter in place (units (unknown) date) that is been in for unknown) at least the past month. She was just (unknown) (no (unknown) (unknown) chlorhexidine (units ( unknown) date) Allergy Mild unknown) ITCHING Verified 11/14/19 03:00 (unknown) (no (unknown) (unknown) culture was (units (un known) date) obtained. unknown) Urinalysis does have nitrite positive urine. Review of (unknown) (no (unknown) (unknown) documented (units (unk nown) date) unknown) (unknown) (no (unknown) (unknown) does not have (units ( unknown) date) morphine now so she unknown) thinks she is withdrawing from this. (unknown) (no (unknown) (unknown) drainage. No (units (u nknown) date) surrounding unknown) erythema. There is a loop dressing in place. (unknown) (no (unknown) (unknown) ertapenem Allergy (units (unknown) date) Severe SEIZURES unknown) Verified 11/09/19 14:38 (unknown) (no (unknown) (unknown) her legs. She left (units (unknown) date) the half-way unknown) facility on her own because of concerns (unknown) (no (unknown) (unknown) her medical record (units (unknown) date) shows that in 2019 unknown) she had an E coli. She is allergic to (unknown) (no (unknown) (unknown) hospital. She was (units (unknown) date) given strict return unknown) precautions. She expressed understanding (unknown) (no (unknown) (unknown) household members: (units (unknown) date) none unknown) (unknown) (no (unknown) (unknown) if we need to (units ( unknown) date) change in the unknown) antibiotics based on the results of this. Contact (unknown) (no (unknown) (unknown) infection in these (units (unknown) date) areas. Return to unknown) the emergency department for any new (unknown) (no (unknown) (unknown) lactose AdvReac (units (unknown) date) Unknown Verified unknown) 11/09/19 14:38 (unknown) (no (unknown) (unknown) levothyroxine 50 (units (unknown) date) mcg tablet 50 mcg unknown) PO DAILY #30 tabs 10/12/19 (unknown) (no (unknown) (unknown) linezolid (units (unkn own) date) [LINEZOLID] Allergy unknown) Mild Verified 11/09/19 14:38 (unknown) (no (unknown) (unknown) metronidazole 500 (units (unknown) date) mg tablet 500 mg unknown) .Route .COMPLEX 03/17/20 (unknown) (no (unknown) (unknown) monohydrate/macroc (units (unknown) date) rystals 100 mg unknown) (unknown) (no (unknown) (unknown) nitrofurantoin 100 (units (unknown) date) mg PO Q12H 5 days unknown) #10 caps 11/18/21 (unknown) (no (unknown) (unknown) outpatient. Given (units (unknown) date) her presentation unknown) today she does not require admission to the (unknown) (no (unknown) (unknown) oxybutynin (units (unk nown) date) chloride 5 mg unknown) tablet 10 mg PO TID 03/17/20 (unknown) (no (unknown) (unknown) penicillin. Her (units (unknown) date) prior culture was unknown) positive to Macrobid. She is nitrite (unknown) (no (unknown) (unknown) positive. Patient (units (unknown) date) was given a dose of unknown) Macrobid here and will send home with a (unknown) (no (unknown) (unknown) prescription for (units (unknown) date) this. She is unknown) nontoxic appearing. The skin decubitus ulcers do (unknown) (no (unknown) (unknown) recently in a (units ( unknown) date) half-way unknown) facility. She has ulcers on her buttocks and on (unknown) (no (unknown) (unknown) sennosides 8.6 mg (units (unknown) date) tablet (senna) 17.2 unknown) mg PO BEDTIME #60 tabs 03/17/20 (unknown) (no (unknown) (unknown) symptoms. (units (unkn own) date) unknown) (unknown) (no (unknown) (unknown) ulcers on your (units (unknown) date) right hip/buttocks. unknown) Today there does not appear to be any (unknown) (no (unknown) (unknown) urine culture was (units (unknown) date) pending at the time unknown) of your discharge and we will contact you (unknown) (no (unknown) (unknown) week. She was on (units (unknown) date) morphine for her unknown) discomfort while she was in the facility and (unknown) (no (unknown) (unknown) which she thinks (units (unknown) date) is a urinary tract unknown) infection and lightheaded and withdrawals. (unknown) (no (unknown) (unknown) your primary (units (u nknown) date) doctor for unknown) follow-up. You are going to require wound care for the Result panel 5 (unknown) (no date) (unknown) (unknown) (no value) (units (un known) unknown) (unknown) (no date) (unknown) (unknown) Very Early (units (un known) Growth: Culture unknown) too young for work-up reincubated Result panel 6 (unknown) (no (unknown) (unknown) >100,000 CFU/ml (unkno wn) date) (unknown) (no (unknown) (unknown) GenericComposite[ (units (unknown) date) GNB^Gram negative unknown) bacilli] (unknown) (no (unknown) (unknown) Identification (units (unknown) date) and Sensitivity to unknown) Follow Result panel 7 (unknown) (no (unknown) (unknown) (no value) (units (unk nown) date) unknown) (unknown) (no (unknown) (unknown) >100,000 CFU/ml (unkno wn) date) (unknown) (no (unknown) (unknown) 50,000 - 60,000 CFU/ml (unknown) date) (unknown) (no (unknown) (unknown) GenericComposite (units (unknown) date) [GNB^Gram unknown) negative bacilli] (unknown) (no (unknown) (unknown) Identification (units (unknown) date) and Sensitivity unknown) to Follow Result panel 8 (unknown) (no (unknown) (unknown) (no value) (units (unk nown) date) unknown) (unknown) (no (unknown) (unknown) *Please continue to (unit s (unknown) date) take your regular unknown) medications as directed. (unknown) (no (unknown) (unknown) Date of Service: (units (unknown) date) 11/20/21 unknown) (unknown) (no (unknown) (unknown) (no value) (units (unk nown) date) unknown) (unknown) (no (unknown) (unknown) <Electronically (units (unknown) date) signed by Elena Strong unknown) [facility]> (unknown) (no (unknown) (unknown) 11/20/21 1430 (units ( unknown) date) unknown) (unknown) (no (unknown) (unknown) 10 mg PO TID (units (u nknown) date) unknown) (unknown) (no (unknown) (unknown) 100 mg PO Q12H 5 (units (unknown) date) Days Qty: 10 0RF unknown) (unknown) (no (unknown) (unknown) 17.2 mg PO BEDTIME (units (unknown) date) Qty: 60 5RF unknown) (unknown) (no (unknown) (unknown) 50 mcg PO DAILY (units (unknown) date) Qty: 30 5RF unknown) (unknown) (no (unknown) (unknown) 500 mg .ROUTE (units ( unknown) date) .COMPLEX unknown) (unknown) (no (unknown) (unknown) 500 mg crush and (units (unknown) date) apply topically to unknown) wound twice weekly; (unknown) (no (unknown) (unknown) Allergies (units (unkn own) date) unknown) (unknown) (no (unknown) (unknown) Diabetes mellitus (units (unknown) date) unknown) (unknown) (no (unknown) (unknown) ED Orders (units (unkn own) date) unknown) (unknown) (no (unknown) (unknown) Emergency Report (units (unknown) date) unknown) (unknown) (no (unknown) (unknown) Home Medications (units (unknown) date) unknown) (unknown) (no (unknown) (unknown) [facility] (units (unknown) date) [address] [place] [address] unknown) [place] [address] (unknown) (no (unknown) (unknown) Previous Rx's (units ( unknown) date) unknown) (unknown) (no (unknown) (unknown) Rx Instructions: (units (unknown) date) unknown) (unknown) (no (unknown) (unknown) Vital Signs - 8 hr (units (unknown) date) unknown) (unknown) (no (unknown) (unknown) [ ] New medication (units (unknown) date) written as a paper unknown) prescription (unknown) (no (unknown) (unknown) [ x] No new (units (un known) date) medications given unknown) (unknown) (no (unknown) (unknown) [] New medication (units (unknown) date) prescriptions sent unknown) to your pharmacy: [ ] (unknown) (no (unknown) (unknown) must administer (units (unknown) date) with a meal/food unknown) (unknown) (no (unknown) (unknown) (no value) (units (unk nown) date) unknown) (unknown) (no (unknown) (unknown) All questions and (units (unknown) date) concerns answered at unknown) this time. (unknown) (no (unknown) (unknown) levothyroxine (units ( unknown) date) [Synthroid] 50 mcg unknown) tablet (unknown) (no (unknown) (unknown) metronidazole 500 (units (unknown) date) mg tablet unknown) (unknown) (no (unknown) (unknown) nitrofurantoin (units (unknown) date) monohyd/m-cryst unknown) [Macrobid] 100 mg capsule (unknown) (no (unknown) (unknown) oxybutynin chloride (unit s (unknown) date) 5 mg tablet unknown) (unknown) (no (unknown) (unknown) sennosides [senna] (units (unknown) date) 8.6 mg tablet unknown) (unknown) (no (unknown) (unknown) 11/20/21 (units (unkno wn) date) unknown) (unknown) (no (unknown) (unknown) Encounter type: (units (unknown) date) initial encounter unknown) Qualified Code(s): T83.9XXA - Unspecified (unknown) (no (unknown) (unknown) Frequent loose (units (unknown) date) stools unknown) (unknown) (no (unknown) (unknown) Medication (units (unk nown) date) Instructions unknown) Recorded (unknown) (no (unknown) (unknown) Medication (units (unk nown) date) Instructions unknown) Recorded Confirmed (unknown) (no (unknown) (unknown) hydrated if you are (unit s (unknown) date) having frequent unknown) loose stools and drink extra to make up for (unknown) (no (unknown) (unknown) pain or pressure. (units (unknown) date) unknown) (unknown) (no (unknown) (unknown) patient was twisted (unit s (unknown) date) and kinked, this was unknown) fixed, adhere to the side, urine and (unknown) (no (unknown) (unknown) that fluid loss. (units (unknown) date) Your catheter unknown) appears to be draining well at this time, if (unknown) (no (unknown) (unknown) (Synthroid) (units (un known) date) unknown) (unknown) (no (unknown) (unknown) *If you do not have (unit s (unknown) date) a primary care unknown) provider please contact [phone] to (unknown) (no (unknown) (unknown) *Please follow up (units (unknown) date) with your primary unknown) care provider in 2-3 days, call for an (unknown) (no (unknown) (unknown) *Return to (units (unk nown) date) Emergency Department unknown) if you should have any new, worsening or (unknown) (no (unknown) (unknown) *What to do: (units (u nknown) date) unknown) (unknown) (no (unknown) (unknown) *You have been (units (unknown) date) diagnosed with unknown) bladder infection and diarrhea likely from your (unknown) (no (unknown) (unknown) 11/20/21 13:08 (units (unknown) date) unknown) (unknown) (no (unknown) (unknown) 0807 (units (unkno wn) date) unknown) (unknown) (no (unknown) (unknown) 13:00 (units (unkno wn) date) unknown) (unknown) (no (unknown) (unknown) AF (paroxysmal (units (unknown) date) atrial fibrillation) unknown) (unknown) (no (unknown) (unknown) Abrasion, left (units (unknown) date) lower leg, initial unknown) encounter (unknown) (no (unknown) (unknown) Abscess and (units (un known) date) cellulitis of unknown) gluteal region (unknown) (no (unknown) (unknown) Activity (units (unkno wn) date) Restrictions/Additio unknown) nal Instructions: (unknown) (no (unknown) (unknown) Acute UTI (units (unkn own) date) unknown) (unknown) (no (unknown) (unknown) Acute hypokalemia (units (unknown) date) unknown) (unknown) (no (unknown) (unknown) Acute narcotic (units (unknown) date) withdrawal without unknown) complication (unknown) (no (unknown) (unknown) Age/Sex: 66 / F (units (unknown) date) unknown) (unknown) (no (unknown) (unknown) Allergy/AdvReac (units (unknown) date) Type Severity unknown) Reaction Status Date / Time (unknown) (no (unknown) (unknown) Anemia (units (unkno wn) date) unknown) (unknown) (no (unknown) (unknown) Bilateral lower leg (unit s (unknown) date) cellulitis unknown) (unknown) (no (unknown) (unknown) Bleeding from PICC (units (unknown) date) line unknown) (unknown) (no (unknown) (unknown) Blood Pressure (units (unknown) date) 181/86 H 11/20/21 unknown) 13:00 (unknown) (no (unknown) (unknown) Blood Pressure (units (unknown) date) 181/86 H unknown) (unknown) (no (unknown) (unknown) Brother Mental (units (unknown) date) health problem unknown) (unknown) (no (unknown) (unknown) Cardio: Regular (units (unknown) date) rate and rhythm, no unknown) peripheral edema (unknown) (no (unknown) (unknown) Cardio: denies (units (unknown) date) chest pain, unknown) palpitations, edema (unknown) (no (unknown) (unknown) Cat scratch of face (unit s (unknown) date) unknown) (unknown) (no (unknown) (unknown) Cellulitis (units (unk nown) date) unknown) (unknown) (no (unknown) (unknown) Chief complaint: (units (unknown) date) Urogenital-Female unknown) (unknown) (no (unknown) (unknown) 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 (unknown) (no (unknown) (unknown) Chronic (units (unkno wn) date) osteomyelitis unknown) involving multiple sites (unknown) (no (unknown) (unknown) Chronic skin ulcer (units (unknown) date) unknown) (unknown) (no (unknown) (unknown) Clinical (units (unkno wn) date) Impression: unknown) (unknown) (no (unknown) (unknown) 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 E Commerce Stat unknown) (unknown) (no (unknown) (unknown) Contusion of left (units (unknown) date) lower leg, initial unknown) encounter (unknown) (no (unknown) (unknown) Course (units (unkno wn) date) unknown) (unknown) (no (unknown) (unknown) Cutaneous abscess (units (unknown) date) of buttock unknown) (unknown) (no (unknown) (unknown) : 1955 (units (unknown) date) Acct:[id number] unknown) (unknown) (no (unknown) (unknown) Deep vein (units (unkn own) date) thrombosis unknown) (unknown) (no (unknown) (unknown) Departure (units (unkn own) date) unknown) (unknown) (no (unknown) (unknown) Discharge Plan (units (unknown) date) unknown) (unknown) (no (unknown) (unknown) Dizziness (units (unkn own) date) unknown) (unknown) (no (unknown) (unknown) EMS. Patient is (units (unknown) date) appropriate and unknown) amenable to discharge home. Vital signs are (unknown) (no (unknown) (unknown) ER Physician: (units ( unknown) date) Elena Hamilton unknown) (unknown) (no (unknown) (unknown) Exam (units (unkno wn) date) unknown) (unknown) (no (unknown) (unknown) Exam Narrative: (units (unknown) date) unknown) (unknown) (no (unknown) (unknown) Eyes: EOMI, (units (un known) date) conjunctiva normal unknown) (unknown) (no (unknown) (unknown) Eyes: denies visual (unit s (unknown) date) changes, eye pain unknown) (unknown) (no (unknown) (unknown) Fall (units (unkno wn) date) unknown) (unknown) (no (unknown) (unknown) Family History (units (unknown) date) (Reviewed 11/20/21 @ unknown) 14:27 by CHRISTIAN Lee) (unknown) (no (unknown) (unknown) GI: Abdomen soft, (units (unknown) date) nontender to unknown) palpation x4 quadrants, no guarding or rebound (unknown) (no (unknown) (unknown) GI: denies (units (unk nown) date) abdominal pain, unknown) nausea, vomiting, or diarrhea (unknown) (no (unknown) (unknown) : On exam, (units (u nknown) date) patient's flexible unknown) catheter was twisted and kinked, this was (unknown) (no (unknown) (unknown) : denies (units (unk nown) date) hematuria, endorses unknown) catheter at baseline, states stopped draining (unknown) (no (unknown) (unknown) General (units (unkno wn) date) unknown) (unknown) (no (unknown) (unknown) General: Awake, (units (unknown) date) alert, nontoxic, no unknown) cardiorespiratory distress (unknown) (no (unknown) (unknown) General: denies (units (unknown) date) fever, chills, unknown) malaise, sweats, fatigue (unknown) (no (unknown) (unknown) Grandfather Cancer (units (unknown) date) unknown) (unknown) (no (unknown) (unknown) HPI - Female (units (u nknown) date) Genitourinary unknown) (unknown) (no (unknown) (unknown) HPI Narrative: (units (unknown) date) unknown) (unknown) (no (unknown) (unknown) Head/Neck: (units (unk nown) date) Atraumatic, neck unknown) supple (unknown) (no (unknown) (unknown) Head/Neck: denies (units (unknown) date) headache, neck pain, unknown) dizziness (unknown) (no (unknown) (unknown) Hematoma of left (units (unknown) date) lower extremity unknown) (unknown) (no (unknown) (unknown) Hemiparesis (units (un known) date) unknown) (unknown) (no (unknown) (unknown) Hepatitis C (-1978) (unit s (unknown) date) unknown) (unknown) (no (unknown) (unknown) History of Present (units (unknown) date) Illness unknown) (unknown) (no (unknown) (unknown) Neo Pritchard MD (units (unknown) date) [Primary Care unknown) Provider] - (unknown) (no (unknown) (unknown) Independently (units ( unknown) date) reviewed vitals unknown) signs and nursing notes. (unknown) (no (unknown) (unknown) Initial Vital Signs (unit s (unknown) date) unknown) (unknown) (no (unknown) (unknown) Initial Vital (units ( unknown) date) Signs: unknown) (unknown) (no (unknown) (unknown) Instructions: (units ( unknown) date) Diarrhea, DI for unknown) Urinary Tract Infection (UTI) (unknown) (no (unknown) (unknown) Left leg cellulitis (unit s (unknown) date) unknown) (unknown) (no (unknown) (unknown) MDM - Female (units (u nknown) date) Genitourinary unknown) (unknown) (no (unknown) (unknown) MDM Narrative (units ( unknown) date) unknown) (unknown) (no (unknown) (unknown) MSK: Moves all (units (unknown) date) extremities, unknown) neurovascularly intact, range of motion without (unknown) (no (unknown) (unknown) MSK: denies joint (units (unknown) date) pain, muscle unknown) weakness (unknown) (no (unknown) (unknown) Measles (units (unkno wn) date) unknown) (unknown) (no (unknown) (unknown) Medical History (units (unknown) date) (Reviewed 11/20/21 @ unknown) 14:27 by Elena Hamilton [facility]) (unknown) (no (unknown) (unknown) Medical decision (units (unknown) date) making narrative: unknown) (unknown) (no (unknown) (unknown) Mode of arrival: (units (unknown) date) EMS unknown) (unknown) (no (unknown) (unknown) 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) unknown) (unknown) (no (unknown) (unknown) Mouth/Throat: moist (unit s (unknown) date) mucus membranes, unknown) posterior pharynx without erythema or (unknown) (no (unknown) (unknown) Multiple falls (units (unknown) date) unknown) (unknown) (no (unknown) (unknown) Narrative (units (unkn own) date) unknown) (unknown) (no (unknown) (unknown) Narrative: (units (unk nown) date) unknown) (unknown) (no (unknown) (unknown) Neuro: Normal (units ( unknown) date) speech and unknown) cognition, normal gait (unknown) (no (unknown) (unknown) Neuro: denies (units ( unknown) date) numbness, tingling unknown) (unknown) (no (unknown) (unknown) No Action (units (unkn own) date) unknown) (unknown) (no (unknown) (unknown) Nose: nares patent, (unit s (unknown) date) no rhinorrhea unknown) (unknown) (no (unknown) (unknown) Ordered: (units (unkno wn) date) unknown) (unknown) (no (unknown) (unknown) Orders (units (unkno wn) date) unknown) (unknown) (no (unknown) (unknown) Oxygen Delivery (units (unknown) date) Method 11/20/21 unknown) 13:00 (unknown) (no (unknown) (unknown) Oxygen Delivery (units (unknown) date) Method Room Air unknown) (unknown) (no (unknown) (unknown) PICC (peripherally (units (unknown) date) inserted central unknown) catheter) in place (unknown) (no (unknown) (unknown) Paraplegia (units (unk nown) date) (02/14/16) unknown) (unknown) (no (unknown) (unknown) Paraplegic spinal (units (unknown) date) paralysis unknown) (unknown) (no (unknown) (unknown) Patient (units (unkno wn) date) Disposition: Home unknown) (unknown) (no (unknown) (unknown) Patient History (units (unknown) date) unknown) (unknown) (no (unknown) (unknown) Patient: Karina Diallo (unit s (unknown) date) Ivan MR#: [id number] unknown) (unknown) (no (unknown) (unknown) Penicillins Allergy (unit s (unknown) date) Unknown Verified unknown) 11/09/19 14:38 (unknown) (no (unknown) (unknown) Post-op bleeding (units (unknown) date) unknown) (unknown) (no (unknown) (unknown) Prescriptions: (units (unknown) date) unknown) (unknown) (no (unknown) (unknown) Pressure ulcer of (units (unknown) date) contiguous site of unknown) back, buttock and hip, stage 2 (unknown) (no (unknown) (unknown) Pressure ulcer of (units (unknown) date) left thigh unknown) (unknown) (no (unknown) (unknown) Problem with Stephens (units (unknown) date) catheter unknown) (unknown) (no (unknown) (unknown) Pulse Oximetry 100 (units (unknown) date) 11/20/21 13:00 unknown) (unknown) (no (unknown) (unknown) Pulse Oximetry 100 (units (unknown) date) unknown) (unknown) (no (unknown) (unknown) Pulse Rate 77 (units ( unknown) date) 11/20/21 13:00 unknown) (unknown) (no (unknown) (unknown) Pulse Rate 77 (units ( unknown) date) unknown) (unknown) (no (unknown) (unknown) Qualifiers: (units (un known) date) unknown) (unknown) (no (unknown) (unknown) Referrals: (units (unk nown) date) unknown) (unknown) (no (unknown) (unknown) Related Data (units (u nknown) date) unknown) (unknown) (no (unknown) (unknown) Respiratory Rate 18 (unit s (unknown) date) 11/20/21 13:00 unknown) (unknown) (no (unknown) (unknown) Respiratory Rate 18 (unit s (unknown) date) unknown) (unknown) (no (unknown) (unknown) Respiratory: denies (unit s (unknown) date) dyspnea, cough, unknown) orthopnea (unknown) (no (unknown) (unknown) Respiratory: (units (u nknown) date) respirations unknown) unlabored without wheezing, stridor, or rales. No (unknown) (no (unknown) (unknown) Retention of urine, (unit s (unknown) date) unspecified unknown) (unknown) (no (unknown) (unknown) Review of Systems (units (unknown) date) unknown) (unknown) (no (unknown) (unknown) Seasonal allergies (units (unknown) date) unknown) (unknown) (no (unknown) (unknown) Signed By: (units (unk nown) date) unknown) (unknown) (no (unknown) (unknown) Sister Mental (units ( unknown) date) health problem unknown) (unknown) (no (unknown) (unknown) Skin ulcer of ankle (unit s (unknown) date) unknown) (unknown) (no (unknown) (unknown) Skin: Normal (units (u nknown) date) capillary refill, no unknown) rash (unknown) (no (unknown) (unknown) Skin: denies rash, (units (unknown) date) itching, skin unknown) lesions or other (unknown) (no (unknown) (unknown) Source: patient and (unit s (unknown) date) EMS unknown) (unknown) (no (unknown) (unknown) Stated complaint: (units (unknown) date) Clogged cath unknown) (unknown) (no (unknown) (unknown) Substance Use Type: (unit s (unknown) date) marijuana unknown) (unknown) (no (unknown) (unknown) Temperature 98.5 F (units (unknown) date) 11/20/21 13:00 unknown) (unknown) (no (unknown) (unknown) Temperature 98.5 F (units (unknown) date) unknown) (unknown) (no (unknown) (unknown) This is a (units (unkn own) date) 66-year-old female unknown) who presents to the emergency department via EMS (unknown) (no (unknown) (unknown) Time Seen by (units (u nknown) date) Provider: 11/20/21 unknown) 14:04 (unknown) (no (unknown) (unknown) Toe laceration (units (unknown) date) unknown) (unknown) (no (unknown) (unknown) UTI (urinary tract (units (unknown) date) infection) unknown) (unknown) (no (unknown) (unknown) UTI (urinary tract (units (unknown) date) infection) due to unknown) Enterococcus (unknown) (no (unknown) (unknown) Vital Signs (units (un known) date) unknown) (unknown) (no (unknown) (unknown) Vital signs: (units (u nknown) date) unknown) (unknown) (no (unknown) (unknown) Wound of sacral (units (unknown) date) region, subsequent unknown) encounter (08/29/15) (unknown) (no (unknown) (unknown) alcohol intake (units (unknown) date) frequency: unknown) holidays/special occasions only (unknown) (no (unknown) (unknown) antibiotic. Please (units (unknown) date) continue taking your unknown) antibiotic morning and night until it (unknown) (no (unknown) (unknown) any other needs. (units (unknown) date) Thank you for unknown) trusting us with your care, I hope you feel (unknown) (no (unknown) (unknown) any other symptoms. (unit s (unknown) date) unknown) (unknown) (no (unknown) (unknown) appointment. Let (units (unknown) date) them know you were unknown) seen in the Emergency Department and that we (unknown) (no (unknown) (unknown) asked that you be (units (unknown) date) seen for follow-up. unknown) We will electronically transmit a record (unknown) (no (unknown) (unknown) before bed if she (units (unknown) date) is having loose unknown) stools overnight. Recommend she follow-up (unknown) (no (unknown) (unknown) better soon, please (unit s (unknown) date) follow-up with unknown) Francheska or his PA Annalisa Navarro if you have (unknown) (no (unknown) (unknown) better soon. (units (u nknown) date) unknown) (unknown) (no (unknown) (unknown) bladder infection, (units (unknown) date) reports that she had unknown) some diarrhea last night, she is on day (unknown) (no (unknown) (unknown) bladder, no (units (unk nown) date) hematuria, unknown) cloudiness, urine is clear, patient denies any suprapubic (unknown) (no (unknown) (unknown) capsule (Macrobid) (units (unknown) date) unknown) (unknown) (no (unknown) (unknown) catheter was less (units (unknown) date) than 1000 mL, clear unknown) yellow without signs of hematuria or (unknown) (no (unknown) (unknown) chlorhexidine (units ( unknown) date) Allergy Mild ITCHING unknown) Verified 11/14/19 03:00 (unknown) (no (unknown) (unknown) complaining of (units ( unknown) date) clogged catheter. On unknown) exam, the flexible catheter proximal to the (unknown) (no (unknown) (unknown) complication of (units (unknown) date) genitourinary unknown) prosthetic device, implant and graft, initial (unknown) (no (unknown) (unknown) concerning (units (unk nown) date) symptoms, such as unknown) [fever greater than 101F, chills, worsening pain, (unknown) (no (unknown) (unknown) corrected, urine (units (unknown) date) started flowing unknown) without difficulty, less than 1000 mL in (unknown) (no (unknown) (unknown) deficit (units (unkno wn) date) unknown) (unknown) (no (unknown) (unknown) encounter (units (unkn own) date) unknown) (unknown) (no (unknown) (unknown) ertapenem Allergy (units (unknown) date) Severe SEIZURES unknown) Verified 11/09/19 14:38 (unknown) (no (unknown) (unknown) establish care with (unit s (unknown) [facility]. (unknown) (no (unknown) (unknown) for a clogged (units ( unknown) date) urinary catheter unknown) this morning. Patient is being treated for a (unknown) (no (unknown) (unknown) is gone. If you (units (unknown) date) have diarrhea unknown) related to this antibiotic and it is new since (unknown) (no (unknown) (unknown) lactose AdvReac (units (unknown) date) Unknown Verified unknown) 11/09/19 14:38 (unknown) (no (unknown) (unknown) lesion (units (unkno wn) date) unknown) (unknown) (no (unknown) (unknown) levothyroxine 50 (units (unknown) date) mcg tablet 50 mcg PO unknown) DAILY #30 tabs 10/12/19 (unknown) (no (unknown) (unknown) linezolid (units (unkn own) date) [LINEZOLID] Allergy unknown) Mild Verified 11/09/19 14:38 (unknown) (no (unknown) (unknown) metronidazole 500 (units (unknown) date) mg tablet 500 mg unknown) .Route .COMPLEX 03/17/20 (unknown) (no (unknown) (unknown) monohydrate/macrocr (unit s (unknown) date) ystals 100 mg unknown) (unknown) (no (unknown) (unknown) nitrofurantoin 100 (units (unknown) date) mg PO Q12H 5 days unknown) #10 caps 11/18/21 (unknown) (no (unknown) (unknown) of today's note if (units (unknown) date) your PCP is in our unknown) system (unknown) (no (unknown) (unknown) oxybutynin chloride (unit s (unknown) date) 5 mg tablet 10 mg PO unknown) TID 03/17/20 (unknown) (no (unknown) (unknown) persistent vomiting (unit s (unknown) date) or other bothersome unknown) symptoms] (unknown) (no (unknown) (unknown) providers as (units (un known) date) instructed. Patient unknown) understands plan and agrees to discharge home. (unknown) (no (unknown) (unknown) results. Patient (units (unknown) date) has been given unknown) strict return to ER precautions for any new or (unknown) (no (unknown) (unknown) retractions, (units (u nknown) date) hypoxia or tachypnea unknown) (unknown) (no (unknown) (unknown) sediment. Patient (units (unknown) date) endorses loose unknown) stools since starting her antibiotic, discuss (unknown) (no (unknown) (unknown) sennosides 8.6 mg (units (unknown) date) tablet (senna) 17.2 unknown) mg PO BEDTIME #60 tabs 03/17/20 (unknown) (no (unknown) (unknown) stable on repeat (units (unknown) date) examination is unknown) unremarkable. Patient has been informed of (unknown) (no (unknown) (unknown) starting it, you can (unit s (unknown) date) try loperamide as unknown) needed to bulk up her stool. Please stay (unknown) (no (unknown) (unknown) tenderness (units (unk nown) date) unknown) (unknown) (no (unknown) (unknown) that her urinary (units (unknown) date) catheter is not unknown) draining and she does not know why, she denies (unknown) (no (unknown) (unknown) that she can use (units (unknown) date) loperamide if this unknown) is significant otherwise to hold her senna (unknown) (no (unknown) (unknown) this morning. (units ( unknown) date) unknown) (unknown) (no (unknown) (unknown) three of Macrobid (units (unknown) date) for her UTI, denies unknown) any suprapubic pressure, fever, nausea (unknown) (no (unknown) (unknown) vomiting but (units (u nknown) date) endorses loose unknown) stools which started last night. Patient reports (unknown) (no (unknown) (unknown) with Dr. Pritchard her (units (unknown) date) primary care unknown) provider. She was transported back home via (unknown) (no (unknown) (unknown) worsening symptoms. (unit s (unknown) date) Patient understands unknown) to follow up closely with outpatient (unknown) (no (unknown) (unknown) your stool is that (units (unknown) date) loose, please hold unknown) your senna. I hope you start feeling Result panel 9 (unknown) (no (unknown) (unknown) (no value) (units (unk nown) date) unknown) (unknown) (no (unknown) (unknown) (no value) (units (unk nown) date) unknown) (unknown) (no (unknown) (unknown) >100,000 CFU/ml (unkno wn) date) (unknown) (no (unknown) (unknown) <=0.12 (units (unkno wn) date) unknown) (unknown) (no (unknown) (unknown) <=0.25 (units (unkno wn) date) unknown) (unknown) (no (unknown) (unknown) <=1 (units (unkno wn) date) unknown) (unknown) (no (unknown) (unknown) <=2 (units (unkno wn) date) unknown) (unknown) (no (unknown) (unknown) <=20 (units (unkno wn) date) unknown) (unknown) (no (unknown) (unknown) <=4 (units (unkno wn) date) unknown) (unknown) (no (unknown) (unknown) 0.5 (units (unkno wn) date) unknown) (unknown) (no (unknown) (unknown) 1 (units (unkno wn) date) unknown) (unknown) (no (unknown) (unknown) 256 (units (unkno wn) date) unknown) (unknown) (no (unknown) (unknown) 50,000 - 60,000 CFU/ml (unknown) date) (unknown) (no (unknown) (unknown) GenericComposite (units (unknown) date) [GNB^Gram unknown) negative bacilli] (unknown) (no (unknown) (unknown) GenericComposite (units (unknown) date) [PRORET^Providenc unknown) ia rettgeri] (unknown) (no (unknown) (unknown) Identification (units (unknown) date) and Sensitivity unknown) to Follow (unknown) (no (unknown) (unknown) No Further (units (unk nown) date) Workup unknown) Result panel 10 (unknown) (no date) (unknown) (unknown) (no value) (units (un known) unknown) (unknown) (no date) (unknown) (unknown) (no value) (units (un known) unknown) (unknown) (no date) (unknown) (unknown) >100,000 CFU/ml (unkn own) (unknown) (no date) (unknown) (unknown) >=320 (units (unkn own) unknown) (unknown) (no date) (unknown) (unknown) >=4 (units (unkn own) unknown) (unknown) (no date) (unknown) (unknown) >=8 (units (unkn own) unknown) (unknown) (no date) (unknown) (unknown) <=0.12 (units (unkn own) unknown) (unknown) (no date) (unknown) (unknown) <=0.25 (units (unkn own) unknown) (unknown) (no date) (unknown) (unknown) <=0.5 (units (unkn own) unknown) (unknown) (no date) (unknown) (unknown) <=1 (units (unkn own) unknown) (unknown) (no date) (unknown) (unknown) <=16 (units (unkn own) unknown) (unknown) (no date) (unknown) (unknown) <=2 (units (unkn own) unknown) (unknown) (no date) (unknown) (unknown) <=20 (units (unkn own) unknown) (unknown) (no date) (unknown) (unknown) <=4 (units (unkn own) unknown) (unknown) (no date) (unknown) (unknown) 0.5 (units (unkn own) unknown) (unknown) (no date) (unknown) (unknown) 1 (units (unkn own) unknown) (unknown) (no date) (unknown) (unknown) 16 (units (unkn own) unknown) (unknown) (no date) (unknown) (unknown) 2 (units (unkn own) unknown) (unknown) (no date) (unknown) (unknown) 256 (units (unkn own) unknown) (unknown) (no date) (unknown) (unknown) 40,000 - CFU/ml (unkn own) 50,000 (unknown) (no date) (unknown) (unknown) 50,000 - CFU/ml (unkn own) 60,000 (unknown) (no date) (unknown) (unknown) 8 (units (unkn own) unknown) (unknown) (no date) (unknown) (unknown) GenericCompo (units ( unknown) site[ESCCOL^E unknown) scherichia coli] (unknown) (no date) (unknown) (unknown) GenericCompo (units ( unknown) site[PRORET^P unknown) rovidencia rettgeri] (unknown) (no date) (unknown) (unknown) GenericCompo (units ( unknown) site[PSEAER^P unknown) seudomonas aeruginosa] (unknown) (no date) (unknown) (unknown) No Further (units (un known) Workup unknown) Result panel 11 (unknown) (no (unknown) (unknown) (no value) (units (unk nown) date) unknown) (unknown) (no (unknown) (unknown) *Please continue to (unit s (unknown) date) take your regular unknown) medications as directed. (unknown) (no (unknown) (unknown) Date of Service: (units (unknown) date) 11/20/21 unknown) (unknown) (no (unknown) (unknown) (no value) (units (unk nown) date) unknown) (unknown) (no (unknown) (unknown) <Electronically (units (unknown) date) signed by Anisa unknown) Samuel Burton> (unknown) (no (unknown) (unknown) <Electronically (units (unknown) date) signed by Elena Strong unknown) PRIVACY MANAGER Crew> (unknown) (no (unknown) (unknown) 11/20/21 1430 (units ( unknown) date) unknown) (unknown) (no (unknown) (unknown) 11/22/21 0803 (units ( unknown) date) unknown) (unknown) (no (unknown) (unknown) 10 mg PO TID (units (u nknown) date) unknown) (unknown) (no (unknown) (unknown) 100 mg PO Q12H 5 (units (unknown) date) Days Qty: 10 0RF unknown) (unknown) (no (unknown) (unknown) 17.2 mg PO BEDTIME (units (unknown) date) Qty: 60 5RF unknown) (unknown) (no (unknown) (unknown) 50 mcg PO DAILY (units (unknown) date) Qty: 30 5RF unknown) (unknown) (no (unknown) (unknown) 500 mg .ROUTE (units ( unknown) date) .COMPLEX unknown) (unknown) (no (unknown) (unknown) 500 mg crush and (units (unknown) date) apply topically to unknown) wound twice weekly; (unknown) (no (unknown) (unknown) Allergies (units (unkn own) date) unknown) (unknown) (no (unknown) (unknown) Diabetes mellitus (units (unknown) date) unknown) (unknown) (no (unknown) (unknown) ED Orders (units (unkn own) date) unknown) (unknown) (no (unknown) (unknown) Emergency Report (units (unknown) date) unknown) (unknown) (no (unknown) (unknown) Home Medications (units (unknown) date) unknown) (unknown) (no (unknown) (unknown) [facility] (units (unknown) date) [address] unknown) [place] [address] (unknown) (no (unknown) (unknown) Previous Rx's (units ( unknown) date) unknown) (unknown) (no (unknown) (unknown) Rx Instructions: (units (unknown) date) unknown) (unknown) (no (unknown) (unknown) Vital Signs - 8 hr (units (unknown) date) unknown) (unknown) (no (unknown) (unknown) [ ] New medication (units (unknown) date) written as a paper unknown) prescription (unknown) (no (unknown) (unknown) [ x] No new (units (un known) date) medications given unknown) (unknown) (no (unknown) (unknown) [] New medication (units (unknown) date) prescriptions sent unknown) to your pharmacy: [ ] (unknown) (no (unknown) (unknown) must administer (units (unknown) date) with a meal/food unknown) (unknown) (no (unknown) (unknown) (no value) (units (unk nown) date) unknown) (unknown) (no (unknown) (unknown) levothyroxine (units ( unknown) date) [Synthroid] 50 mcg unknown) tablet (unknown) (no (unknown) (unknown) metronidazole 500 (units (unknown) date) mg tablet unknown) (unknown) (no (unknown) (unknown) nitrofurantoin (units (unknown) date) monohyd/m-cryst unknown) [Macrobid] 100 mg capsule (unknown) (no (unknown) (unknown) oxybutynin chloride (unit s (unknown) date) 5 mg tablet unknown) (unknown) (no (unknown) (unknown) sennosides [senna] (units (unknown) date) 8.6 mg tablet unknown) (unknown) (no (unknown) (unknown) 11/20/21 (units (unkno wn) date) unknown) (unknown) (no (unknown) (unknown) All questions and (units (unknown) date) concerns answered at unknown) this time. (unknown) (no (unknown) (unknown) Encounter type: (units (unknown) date) initial encounter unknown) Qualified Code(s): T83.9XXA - Unspecified (unknown) (no (unknown) (unknown) Frequent loose (units (unknown) date) stools unknown) (unknown) (no (unknown) (unknown) Medication (units (unk nown) date) Instructions unknown) Recorded (unknown) (no (unknown) (unknown) Medication (units (unk nown) date) Instructions unknown) Recorded Confirmed (unknown) (no (unknown) (unknown) <Anisa Burton DO (unit s (unknown) date) - Last Filed: unknown) 11/22/21 08:03> (unknown) (no (unknown) (unknown) <Elena Hamilton, (units (unknown) date) PRIVACY MANAGER - Last Filed: unknown) 11/20/21 14:30> (unknown) (no (unknown) (unknown) (Synthroid) (units (un known) date) unknown) (unknown) (no (unknown) (unknown) *If you do not have (unit s (unknown) date) a primary care unknown) provider please contact [phone] to (unknown) (no (unknown) (unknown) *Please follow up (units (unknown) date) with your primary unknown) care provider in 2-3 days, call for an (unknown) (no (unknown) (unknown) *Return to (units (unk nown) date) Emergency Department unknown) if you should have any new, worsening or (unknown) (no (unknown) (unknown) *What to do: (units (u nknown) date) unknown) (unknown) (no (unknown) (unknown) *You have been (units (unknown) date) diagnosed with unknown) bladder infection and diarrhea likely from your (unknown) (no (unknown) (unknown) 11/20/21 13:08 (units (unknown) date) unknown) (unknown) (no (unknown) (unknown) 0807 (units (unkno wn) date) unknown) (unknown) (no (unknown) (unknown) 13:00 (units (unkno wn) date) unknown) (unknown) (no (unknown) (unknown) AF (paroxysmal (units (unknown) date) atrial fibrillation) unknown) (unknown) (no (unknown) (unknown) Abrasion, left (units (unknown) date) lower leg, initial unknown) encounter (unknown) (no (unknown) (unknown) Abscess and (units (un known) date) cellulitis of unknown) gluteal region (unknown) (no (unknown) (unknown) Activity (units (unkno wn) date) Restrictions/Additio unknown) nal Instructions: (unknown) (no (unknown) (unknown) Acute UTI (units (unkn own) date) unknown) (unknown) (no (unknown) (unknown) Acute hypokalemia (units (unknown) date) unknown) (unknown) (no (unknown) (unknown) Acute narcotic (units (unknown) date) withdrawal without unknown) complication (unknown) (no (unknown) (unknown) Age/Sex: 66 / F (units (unknown) date) unknown) (unknown) (no (unknown) (unknown) Allergy/AdvReac (units (unknown) date) Type Severity unknown) Reaction Status Date / Time (unknown) (no (unknown) (unknown) Anemia (units (unkno wn) date) unknown) (unknown) (no (unknown) (unknown) Bilateral lower leg (unit s (unknown) date) cellulitis unknown) (unknown) (no (unknown) (unknown) Bleeding from PICC (units (unknown) date) line unknown) (unknown) (no (unknown) (unknown) Blood Pressure (units (unknown) date) 181/86 H 11/20/21 unknown) 13:00 (unknown) (no (unknown) (unknown) Blood Pressure (units (unknown) date) 181/86 H unknown) (unknown) (no (unknown) (unknown) Brother Mental (units (unknown) date) health problem unknown) (unknown) (no (unknown) (unknown) Cardio: Regular (units (unknown) date) rate and rhythm, no unknown) peripheral edema (unknown) (no (unknown) (unknown) Cardio: denies (units (unknown) date) chest pain, unknown) palpitations, edema (unknown) (no (unknown) (unknown) Cat scratch of face (unit s (unknown) date) unknown) (unknown) (no (unknown) (unknown) Cellulitis (units (unk nown) date) unknown) (unknown) (no (unknown) (unknown) Chief complaint: (units (unknown) date) Urogenital-Female unknown) (unknown) (no (unknown) (unknown) 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 (unknown) (no (unknown) (unknown) Chronic (units (unkno wn) date) osteomyelitis unknown) involving multiple sites (unknown) (no (unknown) (unknown) Chronic skin ulcer (units (unknown) date) unknown) (unknown) (no (unknown) (unknown) Clinical (units (unkno wn) date) Impression: unknown) (unknown) (no (unknown) (unknown) 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 E Commerce Stat unknown) (unknown) (no (unknown) (unknown) Contusion of left (units (unknown) date) lower leg, initial unknown) encounter (unknown) (no (unknown) (unknown) Cosign (units (unkno wn) date) unknown) (unknown) (no (unknown) (unknown) Course (units (unkno wn) date) unknown) (unknown) (no (unknown) (unknown) Cutaneous abscess (units (unknown) date) of buttock unknown) (unknown) (no (unknown) (unknown) : 1955 (units (unknown) date) Acct:[id number] unknown) (unknown) (no (unknown) (unknown) Deep vein (units (unkn own) date) thrombosis unknown) (unknown) (no (unknown) (unknown) Departure (units (unkn own) date) unknown) (unknown) (no (unknown) (unknown) Discharge Plan (units (unknown) date) unknown) (unknown) (no (unknown) (unknown) Dizziness (units (unkn own) date) unknown) (unknown) (no (unknown) (unknown) ED Attending (units (u nknown) date) Cosignature unknown) Attestation: (unknown) (no (unknown) (unknown) EMS. Patient is (units (unknown) date) appropriate and unknown) amenable to discharge home. Vital signs are (unknown) (no (unknown) (unknown) ER Physician: (units ( unknown) date) Elena Hamilton unknown) (unknown) (no (unknown) (unknown) Exam (units (unkno wn) date) unknown) (unknown) (no (unknown) (unknown) Exam Narrative: (units (unknown) date) unknown) (unknown) (no (unknown) (unknown) Eyes: EOMI, (units (un known) date) conjunctiva normal unknown) (unknown) (no (unknown) (unknown) Eyes: denies visual (unit s (unknown) date) changes, eye pain unknown) (unknown) (no (unknown) (unknown) Fall (units (unkno wn) date) unknown) (unknown) (no (unknown) (unknown) Family History (units (unknown) date) (Reviewed 11/20/21 @ unknown) 14:27 by CHRISTIAN Lee) (unknown) (no (unknown) (unknown) GI: Abdomen soft, (units (unknown) date) nontender to unknown) palpation x4 quadrants, no guarding or rebound (unknown) (no (unknown) (unknown) GI: denies (units (unk nown) date) abdominal pain, unknown) nausea, vomiting, or diarrhea (unknown) (no (unknown) (unknown) : On exam, (units (u nknown) date) patient's flexible unknown) catheter was twisted and kinked, this was (unknown) (no (unknown) (unknown) : denies (units (unk nown) date) hematuria, endorses unknown) catheter at baseline, states stopped draining (unknown) (no (unknown) (unknown) General (units (unkno wn) date) unknown) (unknown) (no (unknown) (unknown) General: Awake, (units (unknown) date) alert, nontoxic, no unknown) cardiorespiratory distress (unknown) (no (unknown) (unknown) General: denies (units (unknown) date) fever, chills, unknown) malaise, sweats, fatigue (unknown) (no (unknown) (unknown) Grandfather Cancer (units (unknown) date) unknown) (unknown) (no (unknown) (unknown) HPI - Female (units (u nknown) date) Genitourinary unknown) (unknown) (no (unknown) (unknown) HPI Narrative: (units (unknown) date) unknown) (unknown) (no (unknown) (unknown) Head/Neck: (units (unk nown) date) Atraumatic, neck unknown) supple (unknown) (no (unknown) (unknown) Head/Neck: denies (units (unknown) date) headache, neck pain, unknown) dizziness (unknown) (no (unknown) (unknown) Hematoma of left (units (unknown) date) lower extremity unknown) (unknown) (no (unknown) (unknown) Hemiparesis (units (un known) date) unknown) (unknown) (no (unknown) (unknown) Hepatitis C (-1978) (unit s (unknown) date) unknown) (unknown) (no (unknown) (unknown) History of Present (units (unknown) date) Illness unknown) (unknown) (no (unknown) (unknown) Neo Pritchard MD (units (unknown) date) [Primary Care unknown) Provider] - (unknown) (no (unknown) (unknown) I was immediately (units (unknown) date) available in the unknown) department for consultation. Documentation (unknown) (no (unknown) (unknown) Independently (units ( unknown) date) reviewed vitals unknown) signs and nursing notes. (unknown) (no (unknown) (unknown) Initial Vital Signs (unit s (unknown) date) unknown) (unknown) (no (unknown) (unknown) Initial Vital (units ( unknown) date) Signs: unknown) (unknown) (no (unknown) (unknown) Instructions: (units ( unknown) date) Diarrhea, DI for unknown) Urinary Tract Infection (UTI) (unknown) (no (unknown) (unknown) Left leg cellulitis (unit s (unknown) date) unknown) (unknown) (no (unknown) (unknown) MDM - Female (units (u nknown) date) Genitourinary unknown) (unknown) (no (unknown) (unknown) MDM Narrative (units ( unknown) date) unknown) (unknown) (no (unknown) (unknown) MSK: Moves all (units (unknown) date) extremities, unknown) neurovascularly intact, range of motion without (unknown) (no (unknown) (unknown) MSK: denies joint (units (unknown) date) pain, muscle unknown) weakness (unknown) (no (unknown) (unknown) Measles (units (unkno wn) date) unknown) (unknown) (no (unknown) (unknown) Medical History (units (unknown) date) (Updated 11/22/21 @ unknown) 00:00 by ) (unknown) (no (unknown) (unknown) Medical decision (units (unknown) date) making narrative: unknown) (unknown) (no (unknown) (unknown) Mode of arrival: (units (unknown) date) EMS unknown) (unknown) (no (unknown) (unknown) 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) unknown) (unknown) (no (unknown) (unknown) Mouth/Throat: moist (unit s (unknown) date) mucus membranes, unknown) posterior pharynx without erythema or (unknown) (no (unknown) (unknown) Multiple falls (units (unknown) date) unknown) (unknown) (no (unknown) (unknown) Narrative (units (unkn own) date) unknown) (unknown) (no (unknown) (unknown) Narrative: (units (unk nown) date) unknown) (unknown) (no (unknown) (unknown) Neuro: Normal (units ( unknown) date) speech and unknown) cognition, normal gait (unknown) (no (unknown) (unknown) Neuro: denies (units ( unknown) date) numbness, tingling unknown) (unknown) (no (unknown) (unknown) No Action (units (unkn own) date) unknown) (unknown) (no (unknown) (unknown) Nose: nares patent, (unit s (unknown) date) no rhinorrhea unknown) (unknown) (no (unknown) (unknown) Ordered: (units (unkno wn) date) unknown) (unknown) (no (unknown) (unknown) Orders (units (unkno wn) date) unknown) (unknown) (no (unknown) (unknown) Oxygen Delivery (units (unknown) date) Method 11/20/21 unknown) 13:00 (unknown) (no (unknown) (unknown) Oxygen Delivery (units (unknown) date) Method Room Air unknown) (unknown) (no (unknown) (unknown) PICC (peripherally (units (unknown) date) inserted central unknown) catheter) in place (unknown) (no (unknown) (unknown) Paraplegia (units (unk nown) date) (02/14/16) unknown) (unknown) (no (unknown) (unknown) Paraplegic spinal (units (unknown) date) paralysis unknown) (unknown) (no (unknown) (unknown) Patient (units (unkno wn) date) Disposition: Home unknown) (unknown) (no (unknown) (unknown) Patient History (units (unknown) date) unknown) (unknown) (no (unknown) (unknown) Patient: Karina Diallo (unit s (unknown) date) Ivan MR#: [id number] unknown) (unknown) (no (unknown) (unknown) Penicillins Allergy (unit s (unknown) date) Unknown Verified unknown) 11/09/19 14:38 (unknown) (no (unknown) (unknown) Post-op bleeding (units (unknown) date) unknown) (unknown) (no (unknown) (unknown) Prescriptions: (units (unknown) date) unknown) (unknown) (no (unknown) (unknown) Pressure ulcer of (units (unknown) date) contiguous site of unknown) back, buttock and hip, stage 2 (unknown) (no (unknown) (unknown) Pressure ulcer of (units (unknown) date) left thigh unknown) (unknown) (no (unknown) (unknown) Problem with Stephens (units (unknown) date) catheter unknown) (unknown) (no (unknown) (unknown) Pulse Oximetry 100 (units (unknown) date) 11/20/21 13:00 unknown) (unknown) (no (unknown) (unknown) Pulse Oximetry 100 (units (unknown) date) unknown) (unknown) (no (unknown) (unknown) Pulse Rate 77 (units ( unknown) date) 11/20/21 13:00 unknown) (unknown) (no (unknown) (unknown) Pulse Rate 77 (units ( unknown) date) unknown) (unknown) (no (unknown) (unknown) Qualifiers: (units (un known) date) unknown) (unknown) (no (unknown) (unknown) Referrals: (units (unk nown) date) unknown) (unknown) (no (unknown) (unknown) Related Data (units (u nknown) date) unknown) (unknown) (no (unknown) (unknown) Respiratory Rate 18 (unit s (unknown) date) 11/20/21 13:00 unknown) (unknown) (no (unknown) (unknown) Respiratory Rate 18 (unit s (unknown) date) unknown) (unknown) (no (unknown) (unknown) Respiratory: denies (unit s (unknown) date) dyspnea, cough, unknown) orthopnea (unknown) (no (unknown) (unknown) Respiratory: (units (u nknown) date) respirations unknown) unlabored without wheezing, stridor, or rales. No (unknown) (no (unknown) (unknown) Retention of urine, (unit s (unknown) date) unspecified unknown) (unknown) (no (unknown) (unknown) Review of Systems (units (unknown) date) unknown) (unknown) (no (unknown) (unknown) Seasonal allergies (units (unknown) date) unknown) (unknown) (no (unknown) (unknown) Signed By: (units (unk nown) date) unknown) (unknown) (no (unknown) (unknown) Sister Mental (units ( unknown) date) health problem unknown) (unknown) (no (unknown) (unknown) Skin ulcer of ankle (unit s (unknown) date) unknown) (unknown) (no (unknown) (unknown) Skin: Normal (units (u nknown) date) capillary refill, no unknown) rash (unknown) (no (unknown) (unknown) Skin: denies rash, (units (unknown) date) itching, skin unknown) lesions or other (unknown) (no (unknown) (unknown) Source: patient and (unit s (unknown) date) EMS unknown) (unknown) (no (unknown) (unknown) Stated complaint: (units (unknown) date) Clogged cath unknown) (unknown) (no (unknown) (unknown) Substance Use Type: (unit s (unknown) date) marijuana unknown) (unknown) (no (unknown) (unknown) Temperature 98.5 F (units (unknown) date) 11/20/21 13:00 unknown) (unknown) (no (unknown) (unknown) Temperature 98.5 F (units (unknown) date) unknown) (unknown) (no (unknown) (unknown) This is a (units (unkn own) date) 66-year-old female unknown) who presents to the emergency department via EMS (unknown) (no (unknown) (unknown) Time Seen by (units (u nknown) date) Provider: 11/20/21 unknown) 14:04 (unknown) (no (unknown) (unknown) Toe laceration (units (unknown) date) unknown) (unknown) (no (unknown) (unknown) UTI (urinary tract (units (unknown) date) infection) unknown) (unknown) (no (unknown) (unknown) UTI (urinary tract (units (unknown) date) infection) due to unknown) Enterococcus (unknown) (no (unknown) (unknown) Visit Report Forms: (unit s (unknown) date) Patient Portal/API unknown) (unknown) (no (unknown) (unknown) Vital Signs (units (un known) date) unknown) (unknown) (no (unknown) (unknown) Vital signs: (units (u nknown) date) unknown) (unknown) (no (unknown) (unknown) Wound of sacral (units (unknown) date) region, subsequent unknown) encounter (08/29/15) (unknown) (no (unknown) (unknown) alcohol intake (units (unknown) date) frequency: unknown) holidays/special occasions only (unknown) (no (unknown) (unknown) antibiotic. Please (units (unknown) date) continue taking your unknown) antibiotic morning and night until it (unknown) (no (unknown) (unknown) any other needs. (units (unknown) date) Thank you for unknown) trusting us with your care, I hope you feel (unknown) (no (unknown) (unknown) any other symptoms. (unit s (unknown) date) unknown) (unknown) (no (unknown) (unknown) appointment. Let (units (unknown) date) them know you were unknown) seen in the Emergency Department and that we (unknown) (no (unknown) (unknown) asked that you be (units (unknown) date) seen for follow-up. unknown) We will electronically transmit a record (unknown) (no (unknown) (unknown) before bed if she (units (unknown) date) is having loose unknown) stools overnight. Recommend she follow-up (unknown) (no (unknown) (unknown) better soon, please (unit s (unknown) date) follow-up with unknown) Francheska or his PA Annalisa Navarro if you have (unknown) (no (unknown) (unknown) better soon. (units (u nknown) date) unknown) (unknown) (no (unknown) (unknown) bladder infection, (units (unknown) date) reports that she had unknown) some diarrhea last night, she is on day (unknown) (no (unknown) (unknown) bladder, no (units (unk nown) date) hematuria, unknown) cloudiness, urine is clear, patient denies any suprapubic (unknown) (no (unknown) (unknown) capsule (Macrobid) (units (unknown) date) unknown) (unknown) (no (unknown) (unknown) catheter was less (units (unknown) date) than 1000 mL, clear unknown) yellow without signs of hematuria or (unknown) (no (unknown) (unknown) chlorhexidine (units ( unknown) date) Allergy Mild ITCHING unknown) Verified 11/14/19 03:00 (unknown) (no (unknown) (unknown) complaining of (units ( unknown) date) clogged catheter. On unknown) exam, the flexible catheter proximal to the (unknown) (no (unknown) (unknown) complication of (units (unknown) date) genitourinary unknown) prosthetic device, implant and graft, initial (unknown) (no (unknown) (unknown) concerning (units (unk nown) date) symptoms, such as unknown) [fever greater than 101F, chills, worsening pain, (unknown) (no (unknown) (unknown) corrected, urine (units (unknown) date) started flowing unknown) without difficulty, less than 1000 mL in (unknown) (no (unknown) (unknown) deficit (units (unkno wn) date) unknown) (unknown) (no (unknown) (unknown) encounter (units (unkn own) date) unknown) (unknown) (no (unknown) (unknown) ertapenem Allergy (units (unknown) date) Severe SEIZURES unknown) Verified 11/09/19 14:38 (unknown) (no (unknown) (unknown) establish care with (unit s (unknown) date) [facility]. (unknown) (no (unknown) (unknown) for a clogged (units ( unknown) date) urinary catheter unknown) this morning. Patient is being treated for a (unknown) (no (unknown) (unknown) has been reviewed. (units (unknown) date) I agree with unknown) assessment and plan. (unknown) (no (unknown) (unknown) hydrated if you are (unit s (unknown) date) having frequent unknown) loose stools and drink extra to make up for (unknown) (no (unknown) (unknown) is gone. If you (units (unknown) date) have diarrhea unknown) related to this antibiotic and it is new since (unknown) (no (unknown) (unknown) lactose AdvReac (units (unknown) date) Unknown Verified unknown) 11/09/19 14:38 (unknown) (no (unknown) (unknown) lesion (units (unkno wn) date) unknown) (unknown) (no (unknown) (unknown) levothyroxine 50 (units (unknown) date) mcg tablet 50 mcg PO unknown) DAILY #30 tabs 10/12/19 (unknown) (no (unknown) (unknown) linezolid (units (unkn own) date) [LINEZOLID] Allergy unknown) Mild Verified 11/09/19 14:38 (unknown) (no (unknown) (unknown) metronidazole 500 (units (unknown) date) mg tablet 500 mg unknown) .Route .COMPLEX 03/17/20 (unknown) (no (unknown) (unknown) monohydrate/macrocr (unit s (unknown) date) ystals 100 mg unknown) (unknown) (no (unknown) (unknown) nitrofurantoin 100 (units (unknown) date) mg PO Q12H 5 days unknown) #10 caps 11/18/21 (unknown) (no (unknown) (unknown) of today's note if (units (unknown) date) your PCP is in our unknown) system (unknown) (no (unknown) (unknown) oxybutynin chloride (unit s (unknown) date) 5 mg tablet 10 mg PO unknown) TID 03/17/20 (unknown) (no (unknown) (unknown) pain or pressure. (units (unknown) date) unknown) (unknown) (no (unknown) (unknown) patient was twisted (unit s (unknown) date) and kinked, this was unknown) fixed, adhere to the side, urine and (unknown) (no (unknown) (unknown) persistent vomiting (unit s (unknown) date) or other bothersome unknown) symptoms] (unknown) (no (unknown) (unknown) providers as (units (un known) date) instructed. Patient unknown) understands plan and agrees to discharge home. (unknown) (no (unknown) (unknown) results. Patient (units (unknown) date) has been given unknown) strict return to ER precautions for any new or (unknown) (no (unknown) (unknown) retractions, (units (u nknown) date) hypoxia or tachypnea unknown) (unknown) (no (unknown) (unknown) sediment. Patient (units (unknown) date) endorses loose unknown) stools since starting her antibiotic, discuss (unknown) (no (unknown) (unknown) sennosides 8.6 mg (units (unknown) date) tablet (senna) 17.2 unknown) mg PO BEDTIME #60 tabs 03/17/20 (unknown) (no (unknown) (unknown) stable on repeat (units (unknown) date) examination is unknown) unremarkable. Patient has been informed of (unknown) (no (unknown) (unknown) starting it, you can (unit s (unknown) date) try loperamide as unknown) needed to bulk up her stool. Please stay (unknown) (no (unknown) (unknown) tenderness (units (unk nown) date) unknown) (unknown) (no (unknown) (unknown) that fluid loss. (units (unknown) date) Your catheter unknown) appears to be draining well at this time, if (unknown) (no (unknown) (unknown) that her urinary (units (unknown) date) catheter is not unknown) draining and she does not know why, she denies (unknown) (no (unknown) (unknown) that she can use (units (unknown) date) loperamide if this unknown) is significant otherwise to hold her senna (unknown) (no (unknown) (unknown) this morning. (units ( unknown) date) unknown) (unknown) (no (unknown) (unknown) three of Macrobid (units (unknown) date) for her UTI, denies unknown) any suprapubic pressure, fever, nausea (unknown) (no (unknown) (unknown) vomiting but (units (u nknown) date) endorses loose unknown) stools which started last night. Patient reports (unknown) (no (unknown) (unknown) with Dr. Pritchard her (units (unknown) date) primary care unknown) provider. She was transported back home via (unknown) (no (unknown) (unknown) worsening symptoms. (unit s (unknown) date) Patient understands unknown) to follow up closely with outpatient (unknown) (no (unknown) (unknown) your stool is that (units (unknown) date) loose, please hold unknown) your senna. I hope you start feeling Result panel 12 (unknown) (no (unknown) (unknown) (no value) (units (unk nown) date) unknown) (unknown) (no (unknown) (unknown) Date of Service: (units (unknown) date) 11/28/21 unknown) (unknown) (no (unknown) (unknown) (no value) (units (unk nown) date) unknown) (unknown) (no (unknown) (unknown) 10 mg PO TID (units (u nknown) date) unknown) (unknown) (no (unknown) (unknown) 17.2 mg PO (units (unk nown) date) BEDTIME Qty: 60 unknown) 5RF (unknown) (no (unknown) (unknown) 50 mcg PO DAILY (units (unknown) date) Qty: 30 5RF unknown) (unknown) (no (unknown) (unknown) 500 mg .ROUTE (units ( unknown) date) .COMPLEX unknown) (unknown) (no (unknown) (unknown) 500 mg crush and (units (unknown) date) apply topically unknown) to wound twice weekly; (unknown) (no (unknown) (unknown) Allergies (units (unkn own) date) unknown) (unknown) (no (unknown) (unknown) Diabetes (units (unkno wn) date) mellitus unknown) (unknown) (no (unknown) (unknown) Emergency Report (units (unknown) date) unknown) (unknown) (no (unknown) (unknown) Home Medications (units (unknown) date) unknown) (unknown) (no (unknown) (unknown) [facility] (units (unknown) date) [address]) [place] [address] (unknown) (no (unknown) (unknown) Previous Rx's (units ( unknown) date) unknown) (unknown) (no (unknown) (unknown) Rx Instructions: (units (unknown) date) unknown) (unknown) (no (unknown) (unknown) Vital Signs - 8 (units (unknown) date) hr unknown) (unknown) (no (unknown) (unknown) (no value) (units (unk nown) date) unknown) (unknown) (no (unknown) (unknown) levothyroxine (units ( unknown) date) [Synthroid] 50 unknown) mcg tablet (unknown) (no (unknown) (unknown) metronidazole (units ( unknown) date) 500 mg tablet unknown) (unknown) (no (unknown) (unknown) oxybutynin (units (unk nown) date) chloride 5 mg unknown) tablet (unknown) (no (unknown) (unknown) sennosides (units (unk nown) date) [senna] 8.6 mg unknown) tablet (unknown) (no (unknown) (unknown) 11/28/21 (units (unkno wn) date) unknown) (unknown) (no (unknown) (unknown) Medication (units (unk nown) date) Instructions unknown) Recorded (unknown) (no (unknown) (unknown) Medication (units (unk nown) date) Instructions unknown) Recorded Confirmed (unknown) (no (unknown) (unknown) (Synthroid) (units (un known) date) unknown) (unknown) (no (unknown) (unknown) 07:16 (units (unkno wn) date) unknown) (unknown) (no (unknown) (unknown) 0807 (units (unkno wn) date) unknown) (unknown) (no (unknown) (unknown) AF (paroxysmal (units (unknown) date) atrial unknown) fibrillation) (unknown) (no (unknown) (unknown) Abrasion, left (units (unknown) date) lower leg, unknown) initial encounter (unknown) (no (unknown) (unknown) Abscess and (units (un known) date) cellulitis of unknown) gluteal region (unknown) (no (unknown) (unknown) Acute UTI (units (unkn own) date) unknown) (unknown) (no (unknown) (unknown) Acute (units (unkno wn) date) hypokalemia unknown) (unknown) (no (unknown) (unknown) Acute narcotic (units (unknown) date) withdrawal unknown) without complication (unknown) (no (unknown) (unknown) Age/Sex: 66 / F (units (unknown) date) unknown) (unknown) (no (unknown) (unknown) Allergy/AdvReac (units (unknown) date) Type Severity unknown) Reaction Status Date / Time (unknown) (no (unknown) (unknown) Anemia (units (unkno wn) date) unknown) (unknown) (no (unknown) (unknown) Bilateral lower (units (unknown) date) leg cellulitis unknown) (unknown) (no (unknown) (unknown) Bleeding from (units ( unknown) date) PICC line unknown) (unknown) (no (unknown) (unknown) Blood Pressure (units (unknown) date) 139/76 11/28/21 unknown) 07:16 (unknown) (no (unknown) (unknown) Blood Pressure (units (unknown) date) 139/76 unknown) (unknown) (no (unknown) (unknown) Brother Mental (units (unknown) date) health problem unknown) (unknown) (no (unknown) (unknown) Cat scratch of (units (unknown) date) face unknown) (unknown) (no (unknown) (unknown) Cellulitis (units (unk nown) date) unknown) (unknown) (no (unknown) (unknown) Chief Complaint: (units (unknown) date) Wound/Laceration unknown) (unknown) (no (unknown) (unknown) 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 (unknown) (no (unknown) (unknown) Chronic (units (unkno wn) date) osteomyelitis unknown) involving multiple sites (unknown) (no (unknown) (unknown) Chronic skin (units (u nknown) date) ulcer unknown) (unknown) (no (unknown) (unknown) Contusion of (units (u nknown) date) left lower leg, unknown) initial encounter (unknown) (no (unknown) (unknown) Course (units (unkno wn) date) unknown) (unknown) (no (unknown) (unknown) Cutaneous (units (unkn own) date) abscess of unknown) buttock (unknown) (no (unknown) (unknown) : 1955 (units (unknown) date) Acct:[id number] unknown) (unknown) (no (unknown) (unknown) Deep vein (units (unkn own) date) thrombosis unknown) (unknown) (no (unknown) (unknown) Departure (units (unkn own) date) unknown) (unknown) (no (unknown) (unknown) Discharge Plan (units (unknown) date) unknown) (unknown) (no (unknown) (unknown) Dizziness (units (unkn own) date) unknown) (unknown) (no (unknown) (unknown) ER Physician: (units ( unknown) date) Anisa Burton unknown) D.O. (unknown) (no (unknown) (unknown) Exam (units (unkno wn) date) unknown) (unknown) (no (unknown) (unknown) Fall (units (unkno wn) date) unknown) (unknown) (no (unknown) (unknown) Family History (units (unknown) date) (Reviewed unknown) 11/20/21 @ 14:27 by Elena Hamilton [facility]) (unknown) (no (unknown) (unknown) General (units (unkno wn) date) unknown) (unknown) (no (unknown) (unknown) Grandfather (units (un known) date) Cancer unknown) (unknown) (no (unknown) (unknown) HPI - (units (unkno wn) date) Wound/Laceration unknown) (unknown) (no (unknown) (unknown) Hematoma of left (units (unknown) date) lower extremity unknown) (unknown) (no (unknown) (unknown) Hemiparesis (units (un known) date) unknown) (unknown) (no (unknown) (unknown) Hepatitis C (units (un known) date) () unknown) (unknown) (no (unknown) (unknown) Neo Pritchard MD (units (unknown) date) [Primary Care unknown) Provider] - (unknown) (no (unknown) (unknown) Initial Vital (units ( unknown) date) Signs unknown) (unknown) (no (unknown) (unknown) Initial Vital (units ( unknown) date) Signs: unknown) (unknown) (no (unknown) (unknown) Left leg (units (unkno wn) date) cellulitis unknown) (unknown) (no (unknown) (unknown) Measles (units (unkno wn) date) unknown) (unknown) (no (unknown) (unknown) Medical History (units (unknown) date) (Updated 11/28/21 unknown) @ 00:00 by ) (unknown) (no (unknown) (unknown) Mode of arrival: (units (unknown) date) EMS unknown) (unknown) (no (unknown) (unknown) 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) (unknown) (no (unknown) (unknown) Multiple falls (units (unknown) date) unknown) (unknown) (no (unknown) (unknown) No Action (units (unkn own) date) unknown) (unknown) (no (unknown) (unknown) Oxygen Delivery (units (unknown) date) Method 11/28/21 unknown) 07:16 (unknown) (no (unknown) (unknown) Oxygen Delivery (units (unknown) date) Method Room Air unknown) (unknown) (no (unknown) (unknown) PICC (units (unkno wn) date) (peripherally unknown) inserted central catheter) in place (unknown) (no (unknown) (unknown) Paraplegia (units (unk nown) date) (02/14/16) unknown) (unknown) (no (unknown) (unknown) Paraplegic (units (unk nown) date) spinal paralysis unknown) (unknown) (no (unknown) (unknown) Patient History (units (unknown) date) unknown) (unknown) (no (unknown) (unknown) Patient: (units (unkno wn) date) Karina Diallo MR#: unknown) [id number] (unknown) (no (unknown) (unknown) Penicillins (units (un known) date) Allergy Unknown unknown) Verified 11/28/21 07:23 (unknown) (no (unknown) (unknown) Post-op bleeding (units (unknown) date) unknown) (unknown) (no (unknown) (unknown) Prescriptions: (units (unknown) date) unknown) (unknown) (no (unknown) (unknown) Pressure ulcer (units (unknown) date) of contiguous unknown) site of back, buttock and hip, stage 2 (unknown) (no (unknown) (unknown) Pressure ulcer (units (unknown) date) of left thigh unknown) (unknown) (no (unknown) (unknown) Pulse Oximetry (units (unknown) date) 100 11/28/21 unknown) 07:16 (unknown) (no (unknown) (unknown) Pulse Oximetry (units (unknown) date) 100 unknown) (unknown) (no (unknown) (unknown) Pulse Rate 95 H (units (unknown) date) 11/28/21 07:16 unknown) (unknown) (no (unknown) (unknown) Pulse Rate 95 H (units (unknown) date) unknown) (unknown) (no (unknown) (unknown) Referrals: (units (unk nown) date) unknown) (unknown) (no (unknown) (unknown) Related Data (units (u nknown) date) unknown) (unknown) (no (unknown) (unknown) Respiratory Rate (units (unknown) date) 20 11/28/21 07:16 unknown) (unknown) (no (unknown) (unknown) Respiratory Rate (units (unknown) date) 20 unknown) (unknown) (no (unknown) (unknown) Retention of (units (u nknown) date) urine, unknown) unspecified (unknown) (no (unknown) (unknown) Seasonal (units (unkno wn) date) allergies unknown) (unknown) (no (unknown) (unknown) Signed By: (units (unk nown) date) unknown) (unknown) (no (unknown) (unknown) Sister Mental (units ( unknown) date) health problem unknown) (unknown) (no (unknown) (unknown) Skin ulcer of (units ( unknown) date) ankle unknown) (unknown) (no (unknown) (unknown) Smoking Status: (units (unknown) date) Current some day unknown) smoker (unknown) (no (unknown) (unknown) Smoking Status: (units (unknown) date) Current some day unknown) smoker (unknown) (no (unknown) (unknown) Social History (units (unknown) date) (Reviewed unknown) 11/18/21 @ 05:16 by Noah Jessica DO) (unknown) (no (unknown) (unknown) Source: EMS (units (un known) date) unknown) (unknown) (no (unknown) (unknown) Stated (units (unkno wn) date) Complaint: Bed unknown) sores (unknown) (no (unknown) (unknown) Substance Use (units ( unknown) date) Type: marijuana unknown) (unknown) (no (unknown) (unknown) Temperature 97.9 (units (unknown) date) F 11/28/21 07:16 unknown) (unknown) (no (unknown) (unknown) Temperature 97.9 (units (unknown) date) F unknown) (unknown) (no (unknown) (unknown) Time Seen by (units (u nknown) date) Provider: unknown) 11/28/21 07:55 (unknown) (no (unknown) (unknown) Toe laceration (units (unknown) date) unknown) (unknown) (no (unknown) (unknown) UTI (urinary (units (u nknown) date) tract infection) unknown) (unknown) (no (unknown) (unknown) UTI (urinary (units (u nknown) date) tract infection) unknown) due to Enterococcus (unknown) (no (unknown) (unknown) Vital Signs (units (un known) date) unknown) (unknown) (no (unknown) (unknown) Vital signs: (units (u nknown) date) unknown) (unknown) (no (unknown) (unknown) Wound of sacral (units (unknown) date) region, unknown) subsequent encounter (08/29/15) (unknown) (no (unknown) (unknown) alcohol intake (units (unknown) date) frequency: unknown) holidays/special occasions only (unknown) (no (unknown) (unknown) alcohol intake: (units (unknown) date) never unknown) (unknown) (no (unknown) (unknown) chlorhexidine (units ( unknown) date) Allergy Mild unknown) ITCHING Verified 11/28/21 07:23 (unknown) (no (unknown) (unknown) ertapenem (units (unkn own) date) Allergy Severe unknown) SEIZURES Verified 11/28/21 07:23 (unknown) (no (unknown) (unknown) household (units (unkn own) date) members: none unknown) (unknown) (no (unknown) (unknown) lactose AdvReac (units (unknown) date) Unknown Verified unknown) 11/28/21 07:23 (unknown) (no (unknown) (unknown) levothyroxine 50 (units (unknown) date) mcg tablet 50 mcg unknown) PO DAILY #30 tabs 10/12/19 (unknown) (no (unknown) (unknown) linezolid (units (unkn own) date) [LINEZOLID] unknown) Allergy Mild Verified 11/28/21 07:23 (unknown) (no (unknown) (unknown) metronidazole (units ( unknown) date) 500 mg tablet 500 unknown) mg .Route .COMPLEX 03/17/20 (unknown) (no (unknown) (unknown) oxybutynin (units (unk nown) date) chloride 5 mg unknown) tablet 10 mg PO TID 03/17/20 (unknown) (no (unknown) (unknown) sennosides 8.6 (units (unknown) date) mg tablet (senna) unknown) 17.2 mg PO BEDTIME #60 tabs 03/17/20 Result panel 13 (unknown) (no (unknown) (unknown) (no value) (units (unk nown) date) unknown) (unknown) (no (unknown) (unknown) Date of Service: (units (unknown) date) 11/28/21 unknown) (unknown) (no (unknown) (unknown) (no value) (units (unk nown) date) unknown) (unknown) (no (unknown) (unknown) 10 mg PO TID (units (u nknown) date) unknown) (unknown) (no (unknown) (unknown) 17.2 mg PO (units (unk nown) date) BEDTIME Qty: 60 unknown) 5RF (unknown) (no (unknown) (unknown) 50 mcg PO DAILY (units (unknown) date) Qty: 30 5RF unknown) (unknown) (no (unknown) (unknown) 500 mg .ROUTE (units ( unknown) date) .COMPLEX unknown) (unknown) (no (unknown) (unknown) 500 mg crush and (units (unknown) date) apply topically unknown) to wound twice weekly; (unknown) (no (unknown) (unknown) Allergies (units (unkn own) date) unknown) (unknown) (no (unknown) (unknown) Diabetes (units (unkno wn) date) mellitus unknown) (unknown) (no (unknown) (unknown) ED Orders (units (unkn own) date) unknown) (unknown) (no (unknown) (unknown) Emergency Report (units (unknown) date) unknown) (unknown) (no (unknown) (unknown) Home Medications (units (unknown) date) unknown) (unknown) (no (unknown) (unknown) [facility] (units (unknown) date) [address] unknown) [place] [address] (unknown) (no (unknown) (unknown) Previous Rx's (units ( unknown) date) unknown) (unknown) (no (unknown) (unknown) Rx Instructions: (units (unknown) date) unknown) (unknown) (no (unknown) (unknown) Vital Signs - 8 (units (unknown) date) hr unknown) (unknown) (no (unknown) (unknown) (no value) (units (unk nown) date) unknown) (unknown) (no (unknown) (unknown) levothyroxine (units ( unknown) date) [Synthroid] 50 unknown) mcg tablet (unknown) (no (unknown) (unknown) metronidazole (units ( unknown) date) 500 mg tablet unknown) (unknown) (no (unknown) (unknown) oxybutynin (units (unk nown) date) chloride 5 mg unknown) tablet (unknown) (no (unknown) (unknown) sennosides (units (unk nown) date) [senna] 8.6 mg unknown) tablet (unknown) (no (unknown) (unknown) 11/28/21 (units (unkno wn) date) unknown) (unknown) (no (unknown) (unknown) Medication (units (unk nown) date) Instructions unknown) Recorded (unknown) (no (unknown) (unknown) Medication (units (unk nown) date) Instructions unknown) Recorded Confirmed (unknown) (no (unknown) (unknown) (Synthroid) (units (un known) date) unknown) (unknown) (no (unknown) (unknown) 11/28/21 09:08 (units (unknown) date) unknown) (unknown) (no (unknown) (unknown) 11/28/21 09:09 (units (unknown) date) unknown) (unknown) (no (unknown) (unknown) 07:16 (units (unkno wn) date) unknown) (unknown) (no (unknown) (unknown) 0807 (units (unkno wn) date) unknown) (unknown) (no (unknown) (unknown) AF (paroxysmal (units (unknown) date) atrial unknown) fibrillation) (unknown) (no (unknown) (unknown) Abrasion, left (units (unknown) date) lower leg, unknown) initial encounter (unknown) (no (unknown) (unknown) Abscess and (units (un known) date) cellulitis of unknown) gluteal region (unknown) (no (unknown) (unknown) Acute UTI (units (unkn own) date) unknown) (unknown) (no (unknown) (unknown) Acute (units (unkno wn) date) hypokalemia unknown) (unknown) (no (unknown) (unknown) Acute narcotic (units (unknown) date) withdrawal unknown) without complication (unknown) (no (unknown) (unknown) Age/Sex: 66 / F (units (unknown) date) unknown) (unknown) (no (unknown) (unknown) Allergy/AdvReac (units (unknown) date) Type Severity unknown) Reaction Status Date / Time (unknown) (no (unknown) (unknown) Anemia (units (unkno wn) date) unknown) (unknown) (no (unknown) (unknown) Bilateral lower (units (unknown) date) leg cellulitis unknown) (unknown) (no (unknown) (unknown) Bleeding from (units ( unknown) date) PICC line unknown) (unknown) (no (unknown) (unknown) Blood Culture (units ( unknown) date) Stat unknown) (unknown) (no (unknown) (unknown) Blood Pressure (units (unknown) date) 139/76 11/28/21 unknown) 07:16 (unknown) (no (unknown) (unknown) Blood Pressure (units (unknown) date) 139/76 unknown) (unknown) (no (unknown) (unknown) Brother Mental (units (unknown) date) health problem unknown) (unknown) (no (unknown) (unknown) CBC Auto Diff (units ( unknown) date) [Complete Blood unknown) Count AUTO DIFF] Stat (unknown) (no (unknown) (unknown) CMP (units (unkno wn) date) [Comprehensive unknown) Metabolic Panel] Stat (unknown) (no (unknown) (unknown) COVID19 -Nasal (units (unknown) date) RAPID/Pre-Proc unknown) Stat (unknown) (no (unknown) (unknown) Cat scratch of (units (unknown) date) face unknown) (unknown) (no (unknown) (unknown) Cellulitis (units (unk nown) date) unknown) (unknown) (no (unknown) (unknown) Chief Complaint: (units (unknown) date) Wound/Laceration unknown) (unknown) (no (unknown) (unknown) 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 (unknown) (no (unknown) (unknown) Chronic (units (unkno wn) date) osteomyelitis unknown) involving multiple sites (unknown) (no (unknown) (unknown) Chronic skin (units (u nknown) date) ulcer unknown) (unknown) (no (unknown) (unknown) Contusion of (units (u nknown) date) left lower leg, unknown) initial encounter (unknown) (no (unknown) (unknown) Course (units (unkno wn) date) unknown) (unknown) (no (unknown) (unknown) Cutaneous (units (unkn own) date) abscess of unknown) buttock (unknown) (no (unknown) (unknown) : 1955 (units (unknown) date) Acct:[id number] unknown) (unknown) (no (unknown) (unknown) Deep vein (units (unkn own) date) thrombosis unknown) (unknown) (no (unknown) (unknown) Departure (units (unkn own) date) unknown) (unknown) (no (unknown) (unknown) Discharge Plan (units (unknown) date) unknown) (unknown) (no (unknown) (unknown) Dizziness (units (unkn own) date) unknown) (unknown) (no (unknown) (unknown) ER Physician: (units ( unknown) date) Anisa Burton unknown) D.O. (unknown) (no (unknown) (unknown) Exam (units (unkno wn) date) unknown) (unknown) (no (unknown) (unknown) Fall (units (unkno wn) date) unknown) (unknown) (no (unknown) (unknown) Family History (units (unknown) date) (Reviewed unknown) 11/20/21 @ 14:27 by Elena Hamilton [facility]) (unknown) (no (unknown) (unknown) General (units (unkno wn) date) unknown) (unknown) (no (unknown) (unknown) Grandfather (units (un known) date) Cancer unknown) (unknown) (no (unknown) (unknown) HPI - (units (unkno wn) date) Wound/Laceration unknown) (unknown) (no (unknown) (unknown) Hematoma of left (units (unknown) date) lower extremity unknown) (unknown) (no (unknown) (unknown) Hemiparesis (units (un known) date) unknown) (unknown) (no (unknown) (unknown) Hepatitis C (units (un known) date) () unknown) (unknown) (no (unknown) (unknown) Neo Pritchard MD (units (unknown) date) [Primary Care unknown) Provider] - (unknown) (no (unknown) (unknown) Initial Vital (units ( unknown) date) Signs unknown) (unknown) (no (unknown) (unknown) Initial Vital (units ( unknown) date) Signs: unknown) (unknown) (no (unknown) (unknown) Lactate (Lactic (units (unknown) date) Acid) Stat unknown) (unknown) (no (unknown) (unknown) Left leg (units (unkno wn) date) cellulitis unknown) (unknown) (no (unknown) (unknown) Measles (units (unkno wn) date) unknown) (unknown) (no (unknown) (unknown) Medical History (units (unknown) date) (Updated 11/28/21 unknown) @ 00:00 by ) (unknown) (no (unknown) (unknown) Mode of arrival: (units (unknown) date) EMS unknown) (unknown) (no (unknown) (unknown) 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) (unknown) (no (unknown) (unknown) Multiple falls (units (unknown) date) unknown) (unknown) (no (unknown) (unknown) No Action (units (unkn own) date) unknown) (unknown) (no (unknown) (unknown) Ordered: (units (unkno wn) date) unknown) (unknown) (no (unknown) (unknown) Orders (units (unkno wn) date) unknown) (unknown) (no (unknown) (unknown) Oxygen Delivery (units (unknown) date) Method 11/28/21 unknown) 07:16 (unknown) (no (unknown) (unknown) Oxygen Delivery (units (unknown) date) Method Room Air unknown) (unknown) (no (unknown) (unknown) PICC (units (unkno wn) date) (peripherally unknown) inserted central catheter) in place (unknown) (no (unknown) (unknown) Paraplegia (units (unk nown) date) (02/14/16) unknown) (unknown) (no (unknown) (unknown) Paraplegic (units (unk nown) date) spinal paralysis unknown) (unknown) (no (unknown) (unknown) Patient History (units (unknown) date) unknown) (unknown) (no (unknown) (unknown) Patient: (units (unkno wn) date) Karina Diallo MR#: unknown) [id number] (unknown) (no (unknown) (unknown) Penicillins (units (un known) date) Allergy Unknown unknown) Verified 11/28/21 07:23 (unknown) (no (unknown) (unknown) Post-op bleeding (units (unknown) date) unknown) (unknown) (no (unknown) (unknown) Prescriptions: (units (unknown) date) unknown) (unknown) (no (unknown) (unknown) Pressure ulcer (units (unknown) date) of contiguous unknown) site of back, buttock and hip, stage 2 (unknown) (no (unknown) (unknown) Pressure ulcer (units (unknown) date) of left thigh unknown) (unknown) (no (unknown) (unknown) Procalcitonin (units ( unknown) date) Stat unknown) (unknown) (no (unknown) (unknown) Pulse Oximetry (units (unknown) date) 100 11/28/21 unknown) 07:16 (unknown) (no (unknown) (unknown) Pulse Oximetry (units (unknown) date) 100 unknown) (unknown) (no (unknown) (unknown) Pulse Rate 95 H (units (unknown) date) 11/28/21 07:16 unknown) (unknown) (no (unknown) (unknown) Pulse Rate 95 H (units (unknown) date) unknown) (unknown) (no (unknown) (unknown) Referrals: (units (unk nown) date) unknown) (unknown) (no (unknown) (unknown) Related Data (units (u nknown) date) unknown) (unknown) (no (unknown) (unknown) Respiratory Rate (units (unknown) date) 20 11/28/21 07:16 unknown) (unknown) (no (unknown) (unknown) Respiratory Rate (units (unknown) date) 20 unknown) (unknown) (no (unknown) (unknown) Retention of (units (u nknown) date) urine, unknown) unspecified (unknown) (no (unknown) (unknown) Seasonal (units (unkno wn) date) allergies unknown) (unknown) (no (unknown) (unknown) Signed By: (units (unk nown) date) unknown) (unknown) (no (unknown) (unknown) Sister Mental (units ( unknown) date) health problem unknown) (unknown) (no (unknown) (unknown) Skin ulcer of (units ( unknown) date) ankle unknown) (unknown) (no (unknown) (unknown) Smoking Status: (units (unknown) date) Current some day unknown) smoker (unknown) (no (unknown) (unknown) Smoking Status: (units (unknown) date) Current some day unknown) smoker (unknown) (no (unknown) (unknown) Social History (units (unknown) date) (Reviewed unknown) 11/18/21 @ 05:16 by Noah Jessica DO) (unknown) (no (unknown) (unknown) Source: EMS (units (un known) date) unknown) (unknown) (no (unknown) (unknown) Stated (units (unkno wn) date) Complaint: Bed unknown) sores (unknown) (no (unknown) (unknown) Substance Use (units ( unknown) date) Type: marijuana unknown) (unknown) (no (unknown) (unknown) Temperature 97.9 (units (unknown) date) F 11/28/21 07:16 unknown) (unknown) (no (unknown) (unknown) Temperature 97.9 (units (unknown) date) F unknown) (unknown) (no (unknown) (unknown) Time Seen by (units (u nknown) date) Provider: unknown) 11/28/21 07:55 (unknown) (no (unknown) (unknown) Toe laceration (units (unknown) date) unknown) (unknown) (no (unknown) (unknown) UA Complete (units (un known) date) [Urinalysis and unknown) Microscopic] Stat (unknown) (no (unknown) (unknown) UTI (urinary (units (u nknown) date) tract infection) unknown) (unknown) (no (unknown) (unknown) UTI (urinary (units (u nknown) date) tract infection) unknown) due to Enterococcus (unknown) (no (unknown) (unknown) Vital Signs (units (un known) date) unknown) (unknown) (no (unknown) (unknown) Vital signs: (units (u nknown) date) unknown) (unknown) (no (unknown) (unknown) Wound of sacral (units (unknown) date) region, unknown) subsequent encounter (08/29/15) (unknown) (no (unknown) (unknown) alcohol intake (units (unknown) date) frequency: unknown) holidays/special occasions only (unknown) (no (unknown) (unknown) alcohol intake: (units (unknown) date) never unknown) (unknown) (no (unknown) (unknown) chlorhexidine (units ( unknown) date) Allergy Mild unknown) ITCHING Verified 11/28/21 07:23 (unknown) (no (unknown) (unknown) ertapenem (units (unkn own) date) Allergy Severe unknown) SEIZURES Verified 11/28/21 07:23 (unknown) (no (unknown) (unknown) household (units (unkn own) date) members: none unknown) (unknown) (no (unknown) (unknown) lactose AdvReac (units (unknown) date) Unknown Verified unknown) 11/28/21 07:23 (unknown) (no (unknown) (unknown) levothyroxine 50 (units (unknown) date) mcg tablet 50 mcg unknown) PO DAILY #30 tabs 10/12/19 (unknown) (no (unknown) (unknown) linezolid (units (unkn own) date) [LINEZOLID] unknown) Allergy Mild Verified 11/28/21 07:23 (unknown) (no (unknown) (unknown) metronidazole (units ( unknown) date) 500 mg tablet 500 unknown) mg .Route .COMPLEX 03/17/20 (unknown) (no (unknown) (unknown) oxybutynin (units (unk nown) date) chloride 5 mg unknown) tablet 10 mg PO TID 03/17/20 (unknown) (no (unknown) (unknown) sennosides 8.6 (units (unknown) date) mg tablet (senna) unknown) 17.2 mg PO BEDTIME #60 tabs 03/17/20 Result panel 14 (unknown) (no (unknown) (unknown) (no value) (units (unk nown) date) unknown) (unknown) (no (unknown) (unknown) [address] [place] [address] (units (unknown) date) unknown) (unknown) (no (unknown) (unknown) [place] (units ( unknown) date) [id number] unknown) (unknown) (no (unknown) (unknown) [facility] (units (unknown) date) unknown) (unknown) (no (unknown) (unknown) Signed (units (unkno wn) date) unknown) (unknown) (no (unknown) (unknown) XRay Report (units (un known) date) unknown) (unknown) (no (unknown) (unknown) (no value) (units (unk nown) date) unknown) (unknown) (no (unknown) (unknown) 11/28/21 (units (unkno wn) date) unknown) (unknown) (no (unknown) (unknown) Approved by: (units (u nknown) date) Elia Grant M.D. on unknown) 11/28/2021 at 11:09 (unknown) (no (unknown) (unknown) Bones and chest (units (unknown) date) wall: No unknown) suspicious bony lesions. Overlying soft tissues (unknown) (no (unknown) (unknown) COMPARISON: (units (un known) date) [facility] unknown) Hospital, CR, XR CHEST 1 VIEW, 06/12/2019, 13:59. (unknown) (no (unknown) (unknown) Dictated by: (units (u nknown) date) Elia Grant M.D. on unknown) 11/28/2021 at 11:08 (unknown) (no (unknown) (unknown) FINDINGS: (units (unkn own) date) unknown) (unknown) (no (unknown) (unknown) Hospital, CR, XR (units (unknown) date) CHEST FOR PICC 1V, unknown) 01/16/2019, 12:09. (unknown) (no (unknown) (unknown) IMPRESSION: (units (un known) date) Stable unknown) radiographic evaluation of the chest without acute (unknown) (no (unknown) (unknown) INDICATIONS: (units (u nknown) date) fever unknown) (unknown) (no (unknown) (unknown) Lungs and pleura: (units (unknown) date) Lungs are clear. unknown) No pleural effusions or pneumothorax. (unknown) (no (unknown) (unknown) Mediastinum: (units (u nknown) date) Mediastinal unknown) contours appear normal. Heart size is normal. (unknown) (no (unknown) (unknown) Surgical changes (units (unknown) date) and devices: unknown) Partially imaged thoracolumbar spinal fusion (unknown) (no (unknown) (unknown) TECHNIQUE: One (units (unknown) date) view of the chest unknown) was acquired. (unknown) (no (unknown) (unknown) abnormalities or (units (unknown) date) focal airspace unknown) disease. (unknown) (no (unknown) (unknown) incompletely (units (u nknown) date) visualized. No unknown) evidence for hardware complication. (unknown) (no (unknown) (unknown) unremarkable. (units ( unknown) date) unknown) (unknown) (no (unknown) (unknown) (units (unkno wn) date) unknown) (unknown) (no (unknown) (unknown) Accession Number: (units (unknown) date) [id number] unknown) (unknown) (no (unknown) (unknown) Age/Sex: 66 / F (units (unknown) date) Date of Service: unknown) (unknown) (no (unknown) (unknown) : 1955 (units (unknown) date) Acct:[id number] unknown) (unknown) (no (unknown) (unknown) [place] (units (unkno wn) date) unknown) (unknown) (no (unknown) (unknown) Loc: ED (units (unkno wn) date) unknown) (unknown) (no (unknown) (unknown) Ordering (units (unkno wn) date) Provider: unknown) Anisa Burton D.O. (unknown) (no (unknown) (unknown) PROCEDURE: XR (units ( unknown) date) CHEST 1V unknown) (unknown) (no (unknown) (unknown) Patient: (units (unkno wn) date) Karina Diallo MR#: unknown) [id number] (unknown) (no (unknown) (unknown) Procedure: XR (units ( unknown) date) chest 1V unknown) (unknown) (no (unknown) (unknown) appear (units (unkno wn) date) unknown) (unknown) (no (unknown) (unknown) cardiopulmonary (units (unknown) date) unknown) (unknown) (no (unknown) (unknown) hardware is (units (un known) date) unknown) Result panel 15 (unknown) (no (unknown) (unknown) (no value) (units (unk nown) date) unknown) (unknown) (no (unknown) (unknown) Date of Service: (units (unknown) date) 11/28/21 unknown) (unknown) (no (unknown) (unknown) (no value) (units (unk nown) date) unknown) (unknown) (no (unknown) (unknown) 10 mg PO TID (units (u nknown) date) unknown) (unknown) (no (unknown) (unknown) 17.2 mg PO (units (unk nown) date) BEDTIME Qty: 60 unknown) 5RF (unknown) (no (unknown) (unknown) 50 mcg PO DAILY (units (unknown) date) Qty: 30 5RF unknown) (unknown) (no (unknown) (unknown) 500 mg .ROUTE (units ( unknown) date) .COMPLEX unknown) (unknown) (no (unknown) (unknown) 500 mg crush and (units (unknown) date) apply topically to unknown) wound twice weekly; (unknown) (no (unknown) (unknown) Allergies (units (unkn own) date) unknown) (unknown) (no (unknown) (unknown) Diabetes mellitus (units (unknown) date) unknown) (unknown) (no (unknown) (unknown) ED Orders (units (unkn own) date) unknown) (unknown) (no (unknown) (unknown) Emergency Report (units (unknown) date) unknown) (unknown) (no (unknown) (unknown) Home Medications (units (unknown) date) unknown) (unknown) (no (unknown) (unknown) [facility] (units (unknown) date) [address] unknown) [place] [address] (unknown) (no (unknown) (unknown) Previous Rx's (units ( unknown) date) unknown) (unknown) (no (unknown) (unknown) Rx Instructions: (units (unknown) date) unknown) (unknown) (no (unknown) (unknown) Vital Signs - 8 (units (unknown) date) hr unknown) (unknown) (no (unknown) (unknown) (no value) (units (unk nown) date) unknown) (unknown) (no (unknown) (unknown) levothyroxine (units ( unknown) date) [Synthroid] 50 mcg unknown) tablet (unknown) (no (unknown) (unknown) metronidazole 500 (units (unknown) date) mg tablet unknown) (unknown) (no (unknown) (unknown) oxybutynin (units (unk nown) date) chloride 5 mg unknown) tablet (unknown) (no (unknown) (unknown) sennosides (units (unk nown) date) [senna] 8.6 mg unknown) tablet (unknown) (no (unknown) (unknown) 11/28/21 (units (unkno wn) date) unknown) (unknown) (no (unknown) (unknown) Medication (units (unk nown) date) Instructions unknown) Recorded (unknown) (no (unknown) (unknown) Medication (units (unk nown) date) Instructions unknown) Recorded Confirmed (unknown) (no (unknown) (unknown) pain. (units (unkno wn) date) unknown) (unknown) (no (unknown) (unknown) (Synthroid) (units (un known) date) unknown) (unknown) (no (unknown) (unknown) 11/28/21 09:08 (units (unknown) date) unknown) (unknown) (no (unknown) (unknown) 11/28/21 09:09 (units (unknown) date) unknown) (unknown) (no (unknown) (unknown) 07:16 (units (unkno wn) date) unknown) (unknown) (no (unknown) (unknown) 0807 (units (unkno wn) date) unknown) (unknown) (no (unknown) (unknown) 12 point review (units (unknown) date) of systems is unknown) negative except for those stated above and HPI (unknown) (no (unknown) (unknown) ABDOMEN: Soft, (units (unknown) date) nontender. unknown) Normoactive bowel sounds all 4 quadrants. No (unknown) (no (unknown) (unknown) AF (paroxysmal (units (unknown) date) atrial unknown) fibrillation) (unknown) (no (unknown) (unknown) Abrasion, left (units (unknown) date) lower leg, initial unknown) encounter (unknown) (no (unknown) (unknown) Abscess and (units (un known) date) cellulitis of unknown) gluteal region (unknown) (no (unknown) (unknown) Acute UTI (units (unkn own) date) unknown) (unknown) (no (unknown) (unknown) Acute hypokalemia (units (unknown) date) unknown) (unknown) (no (unknown) (unknown) Acute narcotic (units (unknown) date) withdrawal without unknown) complication (unknown) (no (unknown) (unknown) Age/Sex: 66 / F (units (unknown) date) unknown) (unknown) (no (unknown) (unknown) Allergy/AdvReac (units (unknown) date) Type Severity unknown) Reaction Status Date / Time (unknown) (no (unknown) (unknown) Anemia (units (unkno wn) date) unknown) (unknown) (no (unknown) (unknown) Bilateral lower (units (unknown) date) leg cellulitis unknown) (unknown) (no (unknown) (unknown) Bleeding from (units ( unknown) date) PICC line unknown) (unknown) (no (unknown) (unknown) Blood Culture (units ( unknown) date) Stat unknown) (unknown) (no (unknown) (unknown) Blood Pressure (units (unknown) date) 139/76 11/28/21 unknown) 07:16 (unknown) (no (unknown) (unknown) Blood Pressure (units (unknown) date) 139/76 unknown) (unknown) (no (unknown) (unknown) Brother Mental (units (unknown) date) health problem unknown) (unknown) (no (unknown) (unknown) CARDIOVASCULAR: (units (unknown) date) Denies chest pain, unknown) palpitations, orthopnea, edema (unknown) (no (unknown) (unknown) CARDIOVASCULAR: (units (unknown) date) Regular rate and unknown) rhythm without murmurs, rubs or gallops. (unknown) (no (unknown) (unknown) CBC Auto Diff (units ( unknown) date) [Complete Blood unknown) Count AUTO DIFF] Stat (unknown) (no (unknown) (unknown) CMP (units (unkno wn) date) [Comprehensive unknown) Metabolic Panel] Stat (unknown) (no (unknown) (unknown) COVID19 -Nasal (units (unknown) date) RAPID/Pre-Proc unknown) Stat (unknown) (no (unknown) (unknown) Cat scratch of (units (unknown) date) face unknown) (unknown) (no (unknown) (unknown) Cellulitis (units (unk nown) date) unknown) (unknown) (no (unknown) (unknown) Chief Complaint: (units (unknown) date) Wound/Laceration unknown) (unknown) (no (unknown) (unknown) 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 (unknown) (no (unknown) (unknown) Chronic (units (unkno wn) date) osteomyelitis unknown) involving multiple sites (unknown) (no (unknown) (unknown) Chronic skin (units (u nknown) date) ulcer unknown) (unknown) (no (unknown) (unknown) Contusion of left (units (unknown) date) lower leg, initial unknown) encounter (unknown) (no (unknown) (unknown) Course (units (unkno wn) date) unknown) (unknown) (no (unknown) (unknown) Cutaneous abscess (units (unknown) date) of buttock unknown) (unknown) (no (unknown) (unknown) : 1955 (units (unknown) date) Acct:[id number] unknown) (unknown) (no (unknown) (unknown) Deep vein (units (unkn own) date) thrombosis unknown) (unknown) (no (unknown) (unknown) Departure (units (unkn own) date) unknown) (unknown) (no (unknown) (unknown) Discharge Plan (units (unknown) date) unknown) (unknown) (no (unknown) (unknown) Dizziness (units (unkn own) date) unknown) (unknown) (no (unknown) (unknown) ER Physician: (units ( unknown) date) Anisa Butron unknown) D.O. (unknown) (no (unknown) (unknown) EXTREMITIES: (units (u nknown) date) Normal range of unknown) motion, no clubbing or edema. Neurovascularly (unknown) (no (unknown) (unknown) Exam (units (unkno wn) date) unknown) (unknown) (no (unknown) (unknown) Fall (units (unkno wn) date) unknown) (unknown) (no (unknown) (unknown) Family History (units (unknown) date) (Reviewed 11/20/21 unknown) @ 14:27 [facility]) (unknown) (no (unknown) (unknown) GASTROINTESTINAL: (units (unknown) date) Denies nausea, unknown) vomiting, abdominal pain, diarrhea, (unknown) (no (unknown) (unknown) GENERAL: Alert (units (unknown) date) chronically ill unknown) 66-year-old female appears uncomfortable and in (unknown) (no (unknown) (unknown) GENERAL: See HPI (units (unknown) date) unknown) (unknown) (no (unknown) (unknown) : Stephens (units (unkn own) date) catheter in place unknown) (unknown) (no (unknown) (unknown) : Denies (units (unkn own) date) dysuria, unknown) frequency, incontinence, hematuria, urinary retention, flank (unknown) (no (unknown) (unknown) General (units (unkno wn) date) unknown) (unknown) (no (unknown) (unknown) Grandfather (units (un known) date) Cancer unknown) (unknown) (no (unknown) (unknown) HEENT: Denies (units ( unknown) date) sinus pain, ear unknown) pain, sore throat, difficulty swallowing, neck (unknown) (no (unknown) (unknown) HEENT: Head (units (un known) date) atraumatic,EOMI, unknown) pupils reactive, face symmetric, moist mucous (unknown) (no (unknown) (unknown) HPI - (units (unkno wn) date) Wound/Laceration unknown) (unknown) (no (unknown) (unknown) HPI narrative: (units (unknown) date) unknown) (unknown) (no (unknown) (unknown) Hematoma of left (units (unknown) date) lower extremity unknown) (unknown) (no (unknown) (unknown) Hemiparesis (units (un known) date) unknown) (unknown) (no (unknown) (unknown) Hepatitis C (units (un known) date) (-1979) unknown) (unknown) (no (unknown) (unknown) History of (units (unk nown) date) Present Illness unknown) (unknown) (no (unknown) (unknown) Neo Pritchard MD (units (unknown) date) [Primary Care unknown) Provider] - (unknown) (no (unknown) (unknown) Initial Vital (units ( unknown) date) Signs unknown) (unknown) (no (unknown) (unknown) Initial Vital (units ( unknown) date) Signs: unknown) (unknown) (no (unknown) (unknown) Lactate (Lactic (units (unknown) date) Acid) Stat unknown) (unknown) (no (unknown) (unknown) Left leg (units (unkno wn) date) cellulitis unknown) (unknown) (no (unknown) (unknown) MUSCULOSKELETAL: (units (unknown) date) Denies weakness, unknown) joint pain, or bony pain (unknown) (no (unknown) (unknown) Measles (units (unkno wn) date) unknown) (unknown) (no (unknown) (unknown) Medical History (units (unknown) date) (Updated 11/28/21 unknown) @ 00:00 by ) (unknown) (no (unknown) (unknown) Mode of arrival: (units (unknown) date) EMS unknown) (unknown) (no (unknown) (unknown) 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) (unknown) (no (unknown) (unknown) Multiple falls (units (unknown) date) unknown) (unknown) (no (unknown) (unknown) NEUROLOGIC: (units (un known) date) Denies weakness, unknown) dizziness, headache, numbness, change in speech, (unknown) (no (unknown) (unknown) NEUROLOGICAL: (units ( unknown) date) Alert and oriented unknown) x4.N (unknown) (no (unknown) (unknown) Narrative: (units (unk nown) date) unknown) (unknown) (no (unknown) (unknown) No Action (units (unkn own) date) unknown) (unknown) (no (unknown) (unknown) Ordered: (units (unkno wn) date) unknown) (unknown) (no (unknown) (unknown) Orders (units (unkno wn) date) unknown) (unknown) (no (unknown) (unknown) Oxygen Delivery (units (unknown) date) Method 11/28/21 unknown) 07:16 (unknown) (no (unknown) (unknown) Oxygen Delivery (units (unknown) date) Method Room Air unknown) (unknown) (no (unknown) (unknown) PICC (units (unkno wn) date) (peripherally unknown) inserted central catheter) in place (unknown) (no (unknown) (unknown) PSYCHIATRIC: No (units (unknown) date) concerning unknown) psychosocial issues. (unknown) (no (unknown) (unknown) Paraplegia (units (unk nown) date) (02/14/16) unknown) (unknown) (no (unknown) (unknown) Paraplegic spinal (units (unknown) date) paralysis unknown) (unknown) (no (unknown) (unknown) Patient History (units (unknown) date) unknown) (unknown) (no (unknown) (unknown) Patient is a (units (u nknown) date) 66-year-old female unknown) history of paraplegia chronic Stephens catheter (unknown) (no (unknown) (unknown) Patient: (units (unkno wn) date) Karina Diallo MR#: unknown) [id number] (unknown) (no (unknown) (unknown) Penicillins (units (un known) date) Allergy Unknown unknown) Verified 11/28/21 07:23 (unknown) (no (unknown) (unknown) Post-op bleeding (units (unknown) date) unknown) (unknown) (no (unknown) (unknown) Prescriptions: (units (unknown) date) unknown) (unknown) (no (unknown) (unknown) Pressure ulcer of (units (unknown) date) contiguous site of unknown) back, buttock and hip, stage 2 (unknown) (no (unknown) (unknown) Pressure ulcer of (units (unknown) date) left thigh unknown) (unknown) (no (unknown) (unknown) Procalcitonin (units ( unknown) date) Stat unknown) (unknown) (no (unknown) (unknown) Pulse Oximetry (units (unknown) date) 100 11/28/21 07:16 unknown) (unknown) (no (unknown) (unknown) Pulse Oximetry (units (unknown) date) 100 unknown) (unknown) (no (unknown) (unknown) Pulse Rate 95 H (units (unknown) date) 11/28/21 07:16 unknown) (unknown) (no (unknown) (unknown) Pulse Rate 95 H (units (unknown) date) unknown) (unknown) (no (unknown) (unknown) RESPIRATORY: (units (u nknown) date) Breath sounds unknown) equal bilaterally, no wheezes rales or rhonchi. (unknown) (no (unknown) (unknown) RESPIRATORY: (units (u nknown) date) Denies dyspnea, unknown) cough, wheezing, hemoptysis, sputum. (unknown) (no (unknown) (unknown) Referrals: (units (unk nown) date) unknown) (unknown) (no (unknown) (unknown) Related Data (units (u nknown) date) unknown) (unknown) (no (unknown) (unknown) Respiratory Rate (units (unknown) date) 20 11/28/21 07:16 unknown) (unknown) (no (unknown) (unknown) Respiratory Rate (units (unknown) date) 20 unknown) (unknown) (no (unknown) (unknown) Retention of (units (u nknown) date) urine, unspecified unknown) (unknown) (no (unknown) (unknown) Review of Systems (units (unknown) date) unknown) (unknown) (no (unknown) (unknown) SKIN: No rash, no (units (unknown) date) erythema, no unknown) pruritus (unknown) (no (unknown) (unknown) SKIN: Warm, dry, (units (unknown) date) no laceration, no unknown) petechiae, no rashes or lesions. (unknown) (no (unknown) (unknown) Seasonal (units (unkno wn) date) allergies unknown) (unknown) (no (unknown) (unknown) Signed By: (units (unk nown) date) unknown) (unknown) (no (unknown) (unknown) Sister Mental (units ( unknown) date) health problem unknown) (unknown) (no (unknown) (unknown) Skin ulcer of (units ( unknown) date) ankle unknown) (unknown) (no (unknown) (unknown) Smoking Status: (units (unknown) date) Current some day unknown) smoker (unknown) (no (unknown) (unknown) Smoking Status: (units (unknown) date) Current some day unknown) smoker (unknown) (no (unknown) (unknown) Social History (units (unknown) date) (Reviewed 11/18/21 unknown) @ 05:16 by Noah Jessica DO) (unknown) (no (unknown) (unknown) Source: EMS (units (un known) date) unknown) (unknown) (no (unknown) (unknown) Stated Complaint: (units (unknown) date) Bed sores unknown) (unknown) (no (unknown) (unknown) Substance Use (units ( unknown) date) Type: marijuana unknown) (unknown) (no (unknown) (unknown) Temperature 97.9 (units (unknown) date) F 11/28/21 07:16 unknown) (unknown) (no (unknown) (unknown) Temperature 97.9 (units (unknown) date) F unknown) (unknown) (no (unknown) (unknown) Time Seen by (units (u nknown) date) Provider: 11/28/21 unknown) 07:55 (unknown) (no (unknown) (unknown) Toe laceration (units (unknown) date) unknown) (unknown) (no (unknown) (unknown) UA Complete (units (un known) date) [Urinalysis and unknown) Microscopic] Stat (unknown) (no (unknown) (unknown) UTI (urinary (units (u nknown) date) tract infection) unknown) (unknown) (no (unknown) (unknown) UTI (urinary (units (u nknown) date) tract infection) unknown) due to Enterococcus (unknown) (no (unknown) (unknown) Vital Signs (units (un known) date) unknown) (unknown) (no (unknown) (unknown) Vital signs: (units (u nknown) date) unknown) (unknown) (no (unknown) (unknown) Wound of sacral (units (unknown) date) region, subsequent unknown) encounter (08/29/15) (unknown) (no (unknown) (unknown) alcohol intake (units (unknown) date) frequency: unknown) holidays/special occasions only (unknown) (no (unknown) (unknown) alcohol intake: (units (unknown) date) never unknown) (unknown) (no (unknown) (unknown) area. He says (units ( unknown) date) these are also unknown) painful. She denies any cough chest pain (unknown) (no (unknown) (unknown) chlorhexidine (units ( unknown) date) Allergy Mild unknown) ITCHING Verified 11/28/21 07:23 (unknown) (no (unknown) (unknown) confusion (units (unkn own) date) unknown) (unknown) (no (unknown) (unknown) constipation, (units ( unknown) date) melena. unknown) (unknown) (no (unknown) (unknown) ertapenem Allergy (units (unknown) date) Severe SEIZURES unknown) Verified 11/28/21 07:23 (unknown) (no (unknown) (unknown) guarding or (units (un known) date) rebound. unknown) (unknown) (no (unknown) (unknown) household (units (unkn own) date) members: none unknown) (unknown) (no (unknown) (unknown) increased (units (unkn own) date) shoulder pain. She unknown) has multiple wounds on her feet and peritoneal (unknown) (no (unknown) (unknown) intact (units (unkno wn) date) unknown) (unknown) (no (unknown) (unknown) kinked catheter. (units (unknown) date) She returns today unknown) she said that she was freezing cold this (unknown) (no (unknown) (unknown) lactose AdvReac (units (unknown) date) Unknown Verified unknown) 11/28/21 07:23 (unknown) (no (unknown) (unknown) levothyroxine 50 (units (unknown) date) mcg tablet 50 mcg unknown) PO DAILY #30 tabs 10/12/19 (unknown) (no (unknown) (unknown) linezolid (units (unkn own) date) [LINEZOLID] unknown) Allergy Mild Verified 11/28/21 07:23 (unknown) (no (unknown) (unknown) membranes (units (unkn own) date) unknown) (unknown) (no (unknown) (unknown) metronidazole 500 (units (unknown) date) mg tablet 500 mg unknown) .Route .COMPLEX 03/17/20 (unknown) (no (unknown) (unknown) morning she took (units (unknown) date) some Tylenol and unknown) got very hot. She did not take her (unknown) (no (unknown) (unknown) no acute (units (unkno wn) date) distress. unknown) (unknown) (no (unknown) (unknown) oxybutynin (units (unk nown) date) chloride 5 mg unknown) tablet 10 mg PO TID 03/17/20 (unknown) (no (unknown) (unknown) pain (units (unkno wn) date) unknown) (unknown) (no (unknown) (unknown) placement chronic (units (unknown) date) wounds presenting unknown) today with fever weakness and pain. She was (unknown) (no (unknown) (unknown) seen and (units (unkno wn) date) evaluated last unknown) week she had some diarrhea at that time found to have (unknown) (no (unknown) (unknown) sennosides 8.6 mg (units (unknown) date) tablet (senna) unknown) 17.2 mg PO BEDTIME #60 tabs 03/17/20 (unknown) (no (unknown) (unknown) shortness of (units (u nknown) date) breath abdominal unknown) pain. (unknown) (no (unknown) (unknown) temperature but (units (unknown) date) feels like this unknown) might be a fever. She has body aches she has Result panel 16 (unknown) (no date) (unknown) (unknown) 0 /uL (unkn own) (unknown) (no date) (unknown) (unknown) 0.7 % (unkn own) (unknown) (no date) (unknown) (unknown) 12.4 g/dL (unkn own) (unknown) (no date) (unknown) (unknown) 13.9 % (unkn own) (unknown) (no date) (unknown) (unknown) 1600 /uL (unkn own) (unknown) (no date) (unknown) (unknown) 200 /uL (unkn own) (unknown) (no date) (unknown) (unknown) 205 X10 3/uL (unkn own) (unknown) (no date) (unknown) (unknown) 3.1 % (unkn own) (unknown) (no date) (unknown) (unknown) 30.0 % (unkn own) (unknown) (no date) (unknown) (unknown) 30.6 PG (unkn own) (unknown) (no date) (unknown) (unknown) 3100 /uL (unkn own) (unknown) (no date) (unknown) (unknown) 33.6 % (unkn own) (unknown) (no date) (unknown) (unknown) 36.9 % (unkn own) (unknown) (no date) (unknown) (unknown) 4.05 X10 6/uL (unkn own) (unknown) (no date) (unknown) (unknown) 400 /uL (unkn own) (unknown) (no date) (unknown) (unknown) 5.3 X10 3/uL (unkn own) (unknown) (no date) (unknown) (unknown) 58.3 % (unkn own) (unknown) (no date) (unknown) (unknown) 7.9 % (unkn own) (unknown) (no date) (unknown) (unknown) 91.1 fL (unkn own) Result panel 17 (unknown) (no date) (unknown) (unknown) 0.8 mmol/L (unkn own) Result panel 18 (unknown) (no date) (unknown) (unknown) Negative (units (unkn own) unknown) Result panel 19 (unknown) (no date) (unknown) (unknown) > 60 mL/min (unkn own) (unknown) (no date) (unknown) (unknown) 0.43 mg/dL (unkn own) (unknown) (no date) (unknown) (unknown) 0.6 mg/dL (unkn own) (unknown) (no date) (unknown) (unknown) 1.1 (units unknown) (unknown) (unknown) (no date) (unknown) (unknown) 102 mmol/L (unkn own) (unknown) (no date) (unknown) (unknown) 107 mg/dL (unkn own) (unknown) (no date) (unknown) (unknown) 141 mmol/L (unkn own) (unknown) (no date) (unknown) (unknown) 16.3 (units unknown) (unknown) (unknown) (no date) (unknown) (unknown) 3.5 mmol/L (unkn own) (unknown) (no date) (unknown) (unknown) 3.9 g/dL (unkn own) (unknown) (no date) (unknown) (unknown) 32 mmol/L (unkn own) (unknown) (no date) (unknown) (unknown) 4.4 g/dL (unkn own) (unknown) (no date) (unknown) (unknown) 48 IU/L (unkn own) (unknown) (no date) (unknown) (unknown) 50 IU/L (unkn own) (unknown) (no date) (unknown) (unknown) 7 mg/dL (unkn own) (unknown) (no date) (unknown) (unknown) 78 U/L (unkn own) (unknown) (no date) (unknown) (unknown) 8.3 g/dL (unkn own) (unknown) (no date) (unknown) (unknown) 9.0 mg/dL (unkn own) Result panel 20 (unknown) (no date) (unknown) (unknown) 0.2 E.U./dL (unkn own) (unknown) (no date) (unknown) (unknown) 1.010 (units (unkn own) unknown) (unknown) (no date) (unknown) (unknown) 2+ (units (unkn own) unknown) (unknown) (no date) (unknown) (unknown) 3+ (units (unkn own) unknown) (unknown) (no date) (unknown) (unknown) 8.0 (units (unkn own) unknown) (unknown) (no date) (unknown) (unknown) CLEAR (units (unkn own) unknown) (unknown) (no date) (unknown) (unknown) NEGATIVE (units (unkn own) unknown) (unknown) (no date) (unknown) (unknown) NEGATIVE g/dL (unkn own) (unknown) (no date) (unknown) (unknown) POSITIVE (units (unkn own) unknown) (unknown) (no date) (unknown) (unknown) YELLOW (units (unkn own) unknown) Result panel 21 (unknown) (no date) (unknown) (unknown) 0.07 ng/mL (unkn own) Result panel 22 (unknown) (no date) (unknown) (unknown) 0.2 E.U./dL (unkn own) (unknown) (no date) (unknown) (unknown) 1-5 /HPF (units (unkn own) unknown) (unknown) (no date) (unknown) (unknown) 1-5/HPF (units (unkn own) unknown) (unknown) (no date) (unknown) (unknown) 1-5/HPF (units (unkn own) unknown) (unknown) (no date) (unknown) (unknown) 1.010 (units (unkn own) unknown) (unknown) (no date) (unknown) (unknown) 2+ (units (unkn own) unknown) (unknown) (no date) (unknown) (unknown) 3+ (units (unkn own) unknown) (unknown) (no date) (unknown) (unknown) 8.0 (units (unkn own) unknown) (unknown) (no date) (unknown) (unknown) CLEAR (units (unkn own) unknown) (unknown) (no date) (unknown) (unknown) Many (>30) (units (un known) unknown) (unknown) (no date) (unknown) (unknown) NEGATIVE (units (unkn own) unknown) (unknown) (no date) (unknown) (unknown) NEGATIVE g/dL (unkn own) (unknown) (no date) (unknown) (unknown) Occasional (units (un known) unknown) (unknown) (no date) (unknown) (unknown) POSITIVE (units (unkn own) unknown) (unknown) (no date) (unknown) (unknown) Specimen (units (unkn own) Cultured unknown) (unknown) (no date) (unknown) (unknown) YELLOW (units (unkn own) unknown) Result panel 23 (unknown) (no (unknown) (unknown) (no value) (units (unk nown) date) unknown) (unknown) (no (unknown) (unknown) Radiologist's (units ( unknown) date) Impression: unknown) (unknown) (no (unknown) (unknown) Date of Service: (units (unknown) date) 11/28/21 unknown) (unknown) (no (unknown) (unknown) (no value) (units (unk nown) date) unknown) (unknown) (no (unknown) (unknown) 11/28/21 09:33 (units (unknown) date) unknown) (unknown) (no (unknown) (unknown) 10 mg PO TID (units (u nknown) date) unknown) (unknown) (no (unknown) (unknown) 17.2 mg PO (units (unk nown) date) BEDTIME Qty: 60 unknown) 5RF (unknown) (no (unknown) (unknown) 50 mcg PO DAILY (units (unknown) date) Qty: 30 5RF unknown) (unknown) (no (unknown) (unknown) 500 mg .ROUTE (units ( unknown) date) .COMPLEX unknown) (unknown) (no (unknown) (unknown) 500 mg crush and (units (unknown) date) apply topically to unknown) wound twice weekly; (unknown) (no (unknown) (unknown) Allergies (units (unkn own) date) unknown) (unknown) (no (unknown) (unknown) [place], [place] (units ( unknown) date) [id number] unknown) (unknown) (no (unknown) (unknown) Diabetes mellitus (units (unknown) date) unknown) (unknown) (no (unknown) (unknown) Documented By: KB (units (unknown) date) unknown) (unknown) (no (unknown) (unknown) ED Orders (units (unkn own) date) unknown) (unknown) (no (unknown) (unknown) Emergency Report (units (unknown) date) unknown) (unknown) (no (unknown) (unknown) Home Medications (units (unknown) date) unknown) (unknown) (no (unknown) (unknown) [facility] (units (unknown) date) [address] [place] [address] unknown) [place] [address] (unknown) (no (unknown) (unknown) Lab Results (units (un known) date) unknown) (unknown) (no (unknown) (unknown) Last Admin: (units (un known) date) 11/28/21 09:51 unknown) Dose: 2 mg (unknown) (no (unknown) (unknown) Previous Rx's (units ( unknown) date) unknown) (unknown) (no (unknown) (unknown) Rx Instructions: (units (unknown) date) unknown) (unknown) (no (unknown) (unknown) Signed (units (unkno wn) date) unknown) (unknown) (no (unknown) (unknown) Stop: 11/28/21 (units (unknown) date) 09:37 unknown) (unknown) (no (unknown) (unknown) Vital Signs - 8 (units (unknown) date) hr unknown) (unknown) (no (unknown) (unknown) XRay Report (units (un known) date) unknown) (unknown) (no (unknown) (unknown) (no value) (units (unk nown) date) unknown) (unknown) (no (unknown) (unknown) 11/28/21 11/28/21 (units (unknown) date) 11/28/21 unknown) Range/Units (unknown) (no (unknown) (unknown) 09:33 09:33 09:33 (units (unknown) date) unknown) (unknown) (no (unknown) (unknown) 09:33 09:35 10:10 (units (unknown) date) unknown) (unknown) (no (unknown) (unknown) levothyroxine (units ( unknown) date) [Synthroid] 50 mcg unknown) tablet (unknown) (no (unknown) (unknown) metronidazole 500 (units (unknown) date) mg tablet unknown) (unknown) (no (unknown) (unknown) oxybutynin (units (unk nown) date) chloride 5 mg unknown) tablet (unknown) (no (unknown) (unknown) sennosides (units (unk nown) date) [senna] 8.6 mg unknown) tablet (unknown) (no (unknown) (unknown) 11/28/21 (units (unkno wn) date) unknown) (unknown) (no (unknown) (unknown) Medication (units (unk nown) date) Instructions unknown) Recorded (unknown) (no (unknown) (unknown) Medication (units (unk nown) date) Instructions unknown) Recorded Confirmed (unknown) (no (unknown) (unknown) UTI (urinary (units (u nknown) date) tract infection) unknown) due to urinary indwelling catheter, Chronic wound (unknown) (no (unknown) (unknown) but she does have (units (unknown) date) a bilaterally. No unknown) surrounding erythema or severe tenderness. (unknown) (no (unknown) (unknown) her she used to (units (unknown) date) be a lot stronger unknown) she is not strong enough to transfer herself (unknown) (no (unknown) (unknown) of extremity (units (u nknown) date) unknown) (unknown) (no (unknown) (unknown) pain. (units (unkno wn) date) unknown) (unknown) (no (unknown) (unknown) (Synthroid) (units (un known) date) unknown) (unknown) (no (unknown) (unknown) *Continue to take (units (unknown) date) medications as unknown) directed (unknown) (no (unknown) (unknown) *Follow up with (units (unknown) date) your primary care unknown) provider in 2-3 days or call [phone] (unknown) (no (unknown) (unknown) *Return to ER if (units (unknown) date) you should have unknown) increasing weakness fever chills or any new, (unknown) (no (unknown) (unknown) *What to do: At (units (unknown) date) this time you have unknown) been signed up for home health care. Start (unknown) (no (unknown) (unknown) *You have been (units (unknown) date) diagnosed with unknown) chronic wounds, UTI (unknown) (no (unknown) (unknown) 11/28/21 09:33 (units (unknown) date) unknown) (unknown) (no (unknown) (unknown) 11/28/21 09:35 (units (unknown) date) unknown) (unknown) (no (unknown) (unknown) 11/28/21 09:36 (units (unknown) date) unknown) (unknown) (no (unknown) (unknown) 11/28/21 09:40 (units (unknown) date) unknown) (unknown) (no (unknown) (unknown) 11/28/21 10:10 (units (unknown) date) unknown) (unknown) (no (unknown) (unknown) 11/28/21 12:28 (units (unknown) date) unknown) (unknown) (no (unknown) (unknown) 11/28/21 13:16 (units (unknown) date) unknown) (unknown) (no (unknown) (unknown) 07:16 11/28/21 (units (unknown) date) unknown) (unknown) (no (unknown) (unknown) 0807 (units (unkno wn) date) unknown) (unknown) (no (unknown) (unknown) 08:48 11/28/21 (units (unknown) date) unknown) (unknown) (no (unknown) (unknown) 09:00 (units (unkno wn) date) unknown) (unknown) (no (unknown) (unknown) 09:00 11/28/21 (units (unknown) date) unknown) (unknown) (no (unknown) (unknown) 09:30 (units (unkno wn) date) unknown) (unknown) (no (unknown) (unknown) 09:30 11/28/21 (units (unknown) date) unknown) (unknown) (no (unknown) (unknown) 10:00 11/28/21 (units (unknown) date) unknown) (unknown) (no (unknown) (unknown) 10:30 (units (unkno wn) date) unknown) (unknown) (no (unknown) (unknown) 10:30 11/28/21 (units (unknown) date) unknown) (unknown) (no (unknown) (unknown) 11:00 (units (unkno wn) date) unknown) (unknown) (no (unknown) (unknown) 11:00 11/28/21 (units (unknown) date) unknown) (unknown) (no (unknown) (unknown) 11:30 11/28/21 (units (unknown) date) unknown) (unknown) (no (unknown) (unknown) 11:36 (units (unkno wn) date) unknown) (unknown) (no (unknown) (unknown) 11:36 11/28/21 (units (unknown) date) unknown) (unknown) (no (unknown) (unknown) 12 point review (units (unknown) date) of systems is unknown) negative except for those stated above and HPI (unknown) (no (unknown) (unknown) 12:00 (units (unkno wn) date) unknown) (unknown) (no (unknown) (unknown) 12:00 11/28/21 (units (unknown) date) unknown) (unknown) (no (unknown) (unknown) ? (units (unkno wn) date) unknown) (unknown) (no (unknown) (unknown) ABDOMEN: Soft, (units (unknown) date) nontender. unknown) Normoactive bowel sounds all 4 quadrants. No (unknown) (no (unknown) (unknown) AF (paroxysmal (units (unknown) date) atrial unknown) fibrillation) (unknown) (no (unknown) (unknown) ALT (<35) IU/L (units (unknown) date) unknown) (unknown) (no (unknown) (unknown) ALT 50 H (<35) (units (unknown) date) IU/L unknown) (unknown) (no (unknown) (unknown) AST (14-36) IU/L (units (unknown) date) unknown) (unknown) (no (unknown) (unknown) AST 48 H (14-36) (units (unknown) date) IU/L unknown) (unknown) (no (unknown) (unknown) Abrasion, left (units (unknown) date) lower leg, initial unknown) encounter (unknown) (no (unknown) (unknown) Abscess and (units (un known) date) cellulitis of unknown) gluteal region (unknown) (no (unknown) (unknown) Accession Number: (units (unknown) date) [id number] ?? unknown) (unknown) (no (unknown) (unknown) Acct:[id number] (units (unknown) date) unknown) (unknown) (no (unknown) (unknown) Activity (units (unkno wn) date) Restrictions/Addit unknown) ional Instructions: (unknown) (no (unknown) (unknown) Acute UTI (units (unkn own) date) unknown) (unknown) (no (unknown) (unknown) Acute hypokalemia (units (unknown) date) unknown) (unknown) (no (unknown) (unknown) Acute narcotic (units (unknown) date) withdrawal without unknown) complication (unknown) (no (unknown) (unknown) Age/Sex: 66 / F (units (unknown) date) unknown) (unknown) (no (unknown) (unknown) Age/Sex: 66 / F (units (unknown) date) unknown) (unknown) (no (unknown) (unknown) Albumin (3.5-5.0) (units (unknown) date) g/dL unknown) (unknown) (no (unknown) (unknown) Albumin 4.4 (units (un known) date) (3.5-5.0) g/dL unknown) (unknown) (no (unknown) (unknown) Albumin/Globulin (units (unknown) date) Ratio (1.0-2.8) unknown) (unknown) (no (unknown) (unknown) Albumin/Globulin (units (unknown) date) Ratio 1.1 unknown) (1.0-2.8) (unknown) (no (unknown) (unknown) Alkaline (units (unkno wn) date) Phosphatase unknown) (38-126) U/L (unknown) (no (unknown) (unknown) Alkaline (units (unkno wn) date) Phosphatase 78 unknown) (38-126) U/L (unknown) (no (unknown) (unknown) Allergy/AdvReac (units (unknown) date) Type Severity unknown) Reaction Status Date / Time (unknown) (no (unknown) (unknown) Anemia (units (unkno wn) date) unknown) (unknown) (no (unknown) (unknown) BUN (7-17) mg/dL (units (unknown) date) unknown) (unknown) (no (unknown) (unknown) BUN 7 (7-17) (units (u nknown) date) mg/dL unknown) (unknown) (no (unknown) (unknown) BUN/Creatinine (units (unknown) date) Ratio (6-22) unknown) (unknown) (no (unknown) (unknown) BUN/Creatinine (units (unknown) date) Ratio 16.3 (6-22) unknown) (unknown) (no (unknown) (unknown) Baso # (Auto) (units ( unknown) date) (0-100) /uL unknown) (unknown) (no (unknown) (unknown) Baso # (Auto) 0 (units (unknown) date) (0-100) /uL unknown) (unknown) (no (unknown) (unknown) Baso % (Auto) (units ( unknown) date) (0-2) % unknown) (unknown) (no (unknown) (unknown) Baso % (Auto) 0.7 (units (unknown) date) (0-2) % unknown) (unknown) (no (unknown) (unknown) Bilateral lower (units (unknown) date) leg cellulitis unknown) (unknown) (no (unknown) (unknown) Bleeding from (units ( unknown) date) PICC line unknown) (unknown) (no (unknown) (unknown) Blood Culture (units ( unknown) date) Stat unknown) (unknown) (no (unknown) (unknown) Blood Pressure (units (unknown) date) 137/84 unknown) (unknown) (no (unknown) (unknown) Blood Pressure (units (unknown) date) 139/76 11/28/21 unknown) 07:16 (unknown) (no (unknown) (unknown) Blood Pressure (units (unknown) date) 141/68 H unknown) (unknown) (no (unknown) (unknown) Blood Pressure (units (unknown) date) 151/83 H unknown) (unknown) (no (unknown) (unknown) Blood Pressure (units (unknown) date) 126/60 156/72 H unknown) (unknown) (no (unknown) (unknown) Blood Pressure (units (unknown) date) 139/76 134/73 unknown) (unknown) (no (unknown) (unknown) Blood Pressure (units (unknown) date) 151/81 H 157/86 H unknown) (unknown) (no (unknown) (unknown) Bones and chest (units (unknown) date) wall:? No unknown) suspicious bony lesions.? Overlying soft tissues (unknown) (no (unknown) (unknown) Brother Mental (units (unknown) date) health problem unknown) (unknown) (no (unknown) (unknown) CARDIOVASCULAR: (units (unknown) date) Denies chest pain, unknown) palpitations, orthopnea, edema (unknown) (no (unknown) (unknown) CARDIOVASCULAR: (units (unknown) date) Regular rate and unknown) rhythm without murmurs, rubs or gallops. (unknown) (no (unknown) (unknown) CBC Auto Diff (units ( unknown) date) [Complete Blood unknown) Count AUTO DIFF] Stat (unknown) (no (unknown) (unknown) CMP (units (unkno wn) date) [Comprehensive unknown) Metabolic Panel] Stat (unknown) (no (unknown) (unknown) COMPARISON:? (units (u nknown) date) [facility] unknown) [facility], [facility], XR CHEST 1 VIEW, 06/12/2019, 13:59.? (unknown) (no (unknown) (unknown) COVID19 -Nasal (units (unknown) date) RAPID/Pre-Proc unknown) Stat (unknown) (no (unknown) (unknown) Calcium (units (unkno wn) date) (8.4-10.2) mg/dL unknown) (unknown) (no (unknown) (unknown) Calcium 9.0 (units (un known) date) (8.4-10.2) mg/dL unknown) (unknown) (no (unknown) (unknown) Carbon Dioxide (units (unknown) date) (22-32) mmol/L unknown) (unknown) (no (unknown) (unknown) Carbon Dioxide 32 (units (unknown) date) (22-32) mmol/L unknown) (unknown) (no (unknown) (unknown) Cat scratch of (units (unknown) date) face unknown) (unknown) (no (unknown) (unknown) Cefpodoxime twice (units (unknown) date) daily for 7 days unknown) (unknown) (no (unknown) (unknown) Cellulitis (units (unk nown) date) unknown) (unknown) (no (unknown) (unknown) Chest x-ray: (units (u nknown) date) unknown) (unknown) (no (unknown) (unknown) Chief Complaint: (units (unknown) date) Wound/Laceration unknown) (unknown) (no (unknown) (unknown) Chloride (98-107) (units (unknown) date) mmol/L unknown) (unknown) (no (unknown) (unknown) Chloride 102 (units (u nknown) date) (98-107) mmol/L unknown) (unknown) (no (unknown) (unknown) 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 (unknown) (no (unknown) (unknown) Chronic (units (unkno wn) date) osteomyelitis unknown) involving multiple sites (unknown) (no (unknown) (unknown) Chronic skin (units (u nknown) date) ulcer unknown) (unknown) (no (unknown) (unknown) Clinical (units (unkno wn) date) Impression: unknown) (unknown) (no (unknown) (unknown) Consult to Home (units (unknown) date) Health Stat unknown) (unknown) (no (unknown) (unknown) 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 [employer] unknown) Stat (unknown) (no (unknown) (unknown) Contusion of left (units (unknown) date) lower leg, initial unknown) encounter (unknown) (no (unknown) (unknown) Course (units (unkno wn) date) unknown) (unknown) (no (unknown) (unknown) Creatinine (units (unk nown) date) (0.52-1.04) mg/dL unknown) (unknown) (no (unknown) (unknown) Creatinine 0.43 L (units (unknown) date) (0.52-1.04) mg/dL unknown) (unknown) (no (unknown) (unknown) Cutaneous abscess (units (unknown) date) of buttock unknown) (unknown) (no (unknown) (unknown) : 1955 (units (unknown) date) Acct:[id number] unknown) (unknown) (no (unknown) (unknown) : 1955 (units (unknown) date) unknown) (unknown) (no (unknown) (unknown) Date of Service: (units (unknown) date) 11/28/21 unknown) (unknown) (no (unknown) (unknown) Deep vein (units (unkn own) date) thrombosis unknown) (unknown) (no (unknown) (unknown) Departure (units (unkn own) date) unknown) (unknown) (no (unknown) (unknown) Dictated by: (units (u nknown) date) Elia Grant M.D. on unknown) 11/28/2021 at 11:08 ? ? (unknown) (no (unknown) (unknown) Discharge Plan (units (unknown) date) unknown) (unknown) (no (unknown) (unknown) Discontinued (units (u nknown) date) Medications unknown) (unknown) (no (unknown) (unknown) Dizziness (units (unkn own) date) unknown) (unknown) (no (unknown) (unknown) ER Physician: (units ( unknown) date) Anisa Burton unknown) D.O. (unknown) (no (unknown) (unknown) EXTREMITIES: (units (u nknown) date) Normal range of unknown) motion, no clubbing or edema. Neurovascularly (unknown) (no (unknown) (unknown) Eos # (Auto) (units (u nknown) date) (0-450) /uL unknown) (unknown) (no (unknown) (unknown) Eos # (Auto) 200 (units (unknown) date) (0-450) /uL unknown) (unknown) (no (unknown) (unknown) Eos % (Auto) (units (u nknown) date) (2-4) % unknown) (unknown) (no (unknown) (unknown) Eos % (Auto) 3.1 (units (unknown) date) (2-4) % unknown) (unknown) (no (unknown) (unknown) Estimated GFR (units ( unknown) date) (>60) mL/min unknown) (unknown) (no (unknown) (unknown) Estimated GFR > (units (unknown) date) 60 (>60) mL/min unknown) (unknown) (no (unknown) (unknown) Exam (units (unkno wn) date) unknown) (unknown) (no (unknown) (unknown) FINDINGS:? (units (unk nown) date) unknown) (unknown) (no (unknown) (unknown) Fall (units (unkno wn) date) unknown) (unknown) (no (unknown) (unknown) Family History (units (unknown) date) (Reviewed 11/20/21 unknown) @ 14:27 by Elena Hamilton [facility]) (unknown) (no (unknown) (unknown) GASTROINTESTINAL: (units (unknown) date) Denies nausea, unknown) vomiting, abdominal pain, diarrhea, (unknown) (no (unknown) (unknown) GENERAL: Alert (units (unknown) date) chronically ill unknown) 66-year-old female appears uncomfortable and in (unknown) (no (unknown) (unknown) GENERAL: See HPI (units (unknown) date) unknown) (unknown) (no (unknown) (unknown) : [place] (units (unkn own) date) catheter in place unknown) (unknown) (no (unknown) (unknown) : Denies (units (unkn own) date) dysuria, unknown) frequency, incontinence, hematuria, urinary retention, flank (unknown) (no (unknown) (unknown) General (units (unkno wn) date) unknown) (unknown) (no (unknown) (unknown) GenericComposite[ (units (unknown) date) Plt Count unknown) (150-400) X10^3/uL ] (unknown) (no (unknown) (unknown) GenericComposite[ (units (unknown) date) Plt Count 205 unknown) (150-400) X10^3/uL ] (unknown) (no (unknown) (unknown) GenericComposite[ (units (unknown) date) RBC (4.0-5.2) unknown) X10^6/uL ] (unknown) (no (unknown) (unknown) GenericComposite[ (units (unknown) date) RBC 4.05 (4.0-5.2) unknown) X10^6/uL ] (unknown) (no (unknown) (unknown) GenericComposite[ (units (unknown) date) WBC (4.5-11.0) unknown) X10^3/uL ] (unknown) (no (unknown) (unknown) GenericComposite[ (units (unknown) date) WBC 5.3 (4.5-11.0) unknown) X10^3/uL ] (unknown) (no (unknown) (unknown) Globulin (units (unkno wn) date) (1.7-4.1) g/dL unknown) (unknown) (no (unknown) (unknown) Globulin 3.9 (units (u nknown) date) (1.7-4.1) g/dL unknown) (unknown) (no (unknown) (unknown) Glucose (80-110) (units (unknown) date) mg/dL unknown) (unknown) (no (unknown) (unknown) Glucose 107 (units (un known) date) (80-110) mg/dL unknown) (unknown) (no (unknown) (unknown) Grandfather (units (un known) date) Cancer unknown) (unknown) (no (unknown) (unknown) HEENT: Denies (units ( unknown) date) sinus pain, ear unknown) pain, sore throat, difficulty swallowing, neck (unknown) (no (unknown) (unknown) HEENT: Head (units (un known) date) atraumatic,EOMI, unknown) pupils reactive, face symmetric, moist mucous (unknown) (no (unknown) (unknown) HPI - (units (unkno wn) date) Wound/Laceration unknown) (unknown) (no (unknown) (unknown) HPI narrative: (units (unknown) date) unknown) (unknown) (no (unknown) (unknown) Hct (36-46) % (units ( unknown) date) unknown) (unknown) (no (unknown) (unknown) Hct 36.9 (36-46) (units (unknown) date) % unknown) (unknown) (no (unknown) (unknown) Hematoma of left (units (unknown) date) lower extremity unknown) (unknown) (no (unknown) (unknown) Hemiparesis (units (un known) date) unknown) (unknown) (no (unknown) (unknown) Hepatitis C (units (un known) date) (-1978) unknown) (unknown) (no (unknown) (unknown) Hgb (12.0-16.0) (units (unknown) date) g/dL unknown) (unknown) (no (unknown) (unknown) Hgb 12.4 (units (unkno wn) date) (12.0-16.0) g/dL unknown) (unknown) (no (unknown) (unknown) History of (units (unk nown) date) Present Illness unknown) (unknown) (no (unknown) (unknown) Neo Pritchard MD (units (unknown) date) [Primary Care unknown) Provider] - (unknown) (no (unknown) (unknown) Hospital, CR, XR (units (unknown) date) CHEST FOR PICC 1V, unknown) 01/16/2019, 12:09. (unknown) (no (unknown) (unknown) IMPRESSION:? (units (u nknown) date) Stable unknown) radiographic evaluation of the chest without acute (unknown) (no (unknown) (unknown) INDICATIONS:? (units ( unknown) date) fever unknown) (unknown) (no (unknown) (unknown) Imaging Data (units (u nknown) date) unknown) (unknown) (no (unknown) (unknown) Initial Vital (units ( unknown) date) Signs unknown) (unknown) (no (unknown) (unknown) Initial Vital (units ( unknown) date) Signs: unknown) (unknown) (no (unknown) (unknown) Instructions: DI (units (unknown) date) for Urinary Tract unknown) Infection (UTI) (unknown) (no (unknown) (unknown) [place] (units (unkno wn) date) unknown) (unknown) (no (unknown) (unknown) Lab Data (units (unkno wn) date) unknown) (unknown) (no (unknown) (unknown) Labs: (units (unkno wn) date) unknown) (unknown) (no (unknown) (unknown) Lactate (0.7-2.1) (units (unknown) date) mmol/L unknown) (unknown) (no (unknown) (unknown) Lactate 0.8 (units (un known) date) (0.7-2.1) mmol/L unknown) (unknown) (no (unknown) (unknown) Lactate (Lactic (units (unknown) date) Acid) Stat unknown) (unknown) (no (unknown) (unknown) Left leg (units (unkno wn) date) cellulitis unknown) (unknown) (no (unknown) (unknown) Loc: ED (units (unkno wn) date) unknown) (unknown) (no (unknown) (unknown) Lungs and (units (unkn own) date) pleura:? Lungs are unknown) clear.? No pleural effusions or pneumothorax.? (unknown) (no (unknown) (unknown) Lymph # (Auto) (units (unknown) date) ([id number]) /uL unknown) (unknown) (no (unknown) (unknown) Lymph # (Auto) (units (unknown) date) 1600 (0652-6335) unknown) /uL (unknown) (no (unknown) (unknown) Lymph % (Auto) (units (unknown) date) (25-40) % unknown) (unknown) (no (unknown) (unknown) Lymph % (Auto) (units (unknown) date) 30.0 (25-40) % unknown) (unknown) (no (unknown) (unknown) MCH (26-34) PG (units (unknown) date) unknown) (unknown) (no (unknown) (unknown) MCH 30.6 (26-34) (units (unknown) date) PG unknown) (unknown) (no (unknown) (unknown) MCHC (30-36) % (units (unknown) date) unknown) (unknown) (no (unknown) (unknown) MCHC 33.6 (30-36) (units (unknown) date) % unknown) (unknown) (no (unknown) (unknown) MCV (80-100) fL (units (unknown) date) unknown) (unknown) (no (unknown) (unknown) MCV 91.1 (80-100) (units (unknown) date) fL unknown) (unknown) (no (unknown) (unknown) MDM - (units (unkno wn) date) Wound/Laceration unknown) (unknown) (no (unknown) (unknown) MDM Narrative (units ( unknown) date) unknown) (unknown) (no (unknown) (unknown) MR#: [id number] (units (unknown) date) unknown) (unknown) (no (unknown) (unknown) MUSCULOSKELETAL: (units (unknown) date) Denies weakness, unknown) joint pain, or bony pain (unknown) (no (unknown) (unknown) Measles (units (unkno wn) date) unknown) (unknown) (no (unknown) (unknown) Mediastinum:? (units ( unknown) date) Mediastinal unknown) contours appear normal.? Heart size is normal.? (unknown) (no (unknown) (unknown) Medical History (units (unknown) date) (Updated 11/28/21 unknown) @ 13:41 by Anisa Burton DO) (unknown) (no (unknown) (unknown) Medical decision (units (unknown) date) making narrative: unknown) (unknown) (no (unknown) (unknown) Mode of arrival: (units (unknown) date) EMS unknown) (unknown) (no (unknown) (unknown) Jerome # (Auto) (units ( unknown) date) (0-900) /uL unknown) (unknown) (no (unknown) (unknown) Jerome # (Auto) 400 (units (unknown) date) (0-900) /uL unknown) (unknown) (no (unknown) (unknown) Jerome % (Auto) (units ( unknown) date) (3-14) % unknown) (unknown) (no (unknown) (unknown) Jerome % (Auto) 7.9 (units (unknown) date) (3-14) % unknown) (unknown) (no (unknown) (unknown) 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) (unknown) (no (unknown) (unknown) Morphine Sulfate (units (unknown) date) (Morphine 2 Mg/Ml unknown) Inj) 2 mg IV NOW ONE (unknown) (no (unknown) (unknown) Multiple falls (units (unknown) date) unknown) (unknown) (no (unknown) (unknown) NEUROLOGIC: (units (un known) date) Denies weakness, unknown) dizziness, headache, numbness, change in speech, (unknown) (no (unknown) (unknown) NEUROLOGICAL: (units ( unknown) date) Alert and oriented unknown) x4.N (unknown) (no (unknown) (unknown) Narrative: (units (unk nown) date) unknown) (unknown) (no (unknown) (unknown) Neut # (Auto) (units ( unknown) date) (0204-7472) /uL unknown) (unknown) (no (unknown) (unknown) Neut # (Auto) (units ( unknown) date) 3100 ([id number]) unknown) /uL (unknown) (no (unknown) (unknown) Neut % (Auto) (units ( unknown) date) (50-75) % unknown) (unknown) (no (unknown) (unknown) Neut % (Auto) (units ( unknown) date) 58.3 (50-75) % unknown) (unknown) (no (unknown) (unknown) No Action (units (unkn own) date) unknown) (unknown) (no (unknown) (unknown) Ordered: (units (unkno wn) date) unknown) (unknown) (no (unknown) (unknown) Ordering (units (unkno wn) date) Provider: unknown) Anisa Burton D.O. (unknown) (no (unknown) (unknown) Orders (units (unkno wn) date) unknown) (unknown) (no (unknown) (unknown) Oxygen Delivery (units (unknown) date) Method unknown) (unknown) (no (unknown) (unknown) Oxygen Delivery (units (unknown) date) Method 11/28/21 unknown) 07:16 (unknown) (no (unknown) (unknown) Oxygen Delivery (units (unknown) date) Method Room Air unknown) (unknown) (no (unknown) (unknown) PICC (units (unkno wn) date) (peripherally unknown) inserted central catheter) in place (unknown) (no (unknown) (unknown) PROCEDURE:? XR (units (unknown) date) CHEST 1V unknown) (unknown) (no (unknown) (unknown) PSYCHIATRIC: No (units (unknown) date) concerning unknown) psychosocial issues. (unknown) (no (unknown) (unknown) Paraplegia (units (unk nown) date) (02/14/16) unknown) (unknown) (no (unknown) (unknown) Paraplegic spinal (units (unknown) date) paralysis unknown) (unknown) (no (unknown) (unknown) Patient (units (unkno wn) date) Disposition: Home unknown) (unknown) (no (unknown) (unknown) Patient History (units (unknown) date) unknown) (unknown) (no (unknown) (unknown) Patient is a (units (u nknown) date) 66-year-old female unknown) history of paraplegia chronic Stephens catheter (unknown) (no (unknown) (unknown) Patient is is (units ( unknown) date) chronically unknown) bed-bound she has chronic wounds which do seem to be (unknown) (no (unknown) (unknown) Patient: (units (unkno wn) date) Karina Diallo MR#: unknown) [id number] (unknown) (no (unknown) (unknown) Patient: (units (unkno wn) date) Karina Diallo unknown) (unknown) (no (unknown) (unknown) Penicillins (units (un known) date) Allergy Unknown unknown) Verified 11/28/21 07:23 (unknown) (no (unknown) (unknown) Post-op bleeding (units (unknown) date) unknown) (unknown) (no (unknown) (unknown) Potassium (units (unkn own) date) (3.4-5.1) mmol/L unknown) (unknown) (no (unknown) (unknown) Potassium 3.5 (units ( unknown) date) (3.4-5.1) mmol/L unknown) (unknown) (no (unknown) (unknown) Prescriptions: (units (unknown) date) unknown) (unknown) (no (unknown) (unknown) Pressure ulcer of (units (unknown) date) contiguous site of unknown) back, buttock and hip, stage 2 (unknown) (no (unknown) (unknown) Pressure ulcer of (units (unknown) date) left thigh unknown) (unknown) (no (unknown) (unknown) Procalcitonin (units ( unknown) date) (<0.5) ng/mL unknown) (unknown) (no (unknown) (unknown) Procalcitonin (units ( unknown) date) 0.07 (<0.5) ng/mL unknown) (unknown) (no (unknown) (unknown) Procalcitonin (units ( unknown) date) Stat unknown) (unknown) (no (unknown) (unknown) Procedure: XR (units ( unknown) date) chest 1V unknown) (unknown) (no (unknown) (unknown) Pulse Oximetry (units (unknown) date) 100 unknown) (unknown) (no (unknown) (unknown) Pulse Oximetry (units (unknown) date) 100 11/28/21 07:16 unknown) (unknown) (no (unknown) (unknown) Pulse Oximetry 98 (units (unknown) date) unknown) (unknown) (no (unknown) (unknown) Pulse Oximetry (units (unknown) date) 100 100 unknown) (unknown) (no (unknown) (unknown) Pulse Oximetry (units (unknown) date) 100 98 unknown) (unknown) (no (unknown) (unknown) Pulse Oximetry 97 (units (unknown) date) 100 unknown) (unknown) (no (unknown) (unknown) Pulse Oximetry 99 (units (unknown) date) 99 unknown) (unknown) (no (unknown) (unknown) Pulse Rate 77 (units ( unknown) date) unknown) (unknown) (no (unknown) (unknown) Pulse Rate 81 (units ( unknown) date) unknown) (unknown) (no (unknown) (unknown) Pulse Rate 95 H (units (unknown) date) 11/28/21 07:16 unknown) (unknown) (no (unknown) (unknown) Pulse Rate 100 H (units (unknown) date) 90 unknown) (unknown) (no (unknown) (unknown) Pulse Rate 75 78 (units (unknown) date) unknown) (unknown) (no (unknown) (unknown) Pulse Rate 82 83 (units (unknown) date) unknown) (unknown) (no (unknown) (unknown) Pulse Rate 95 H (units (unknown) date) 91 H unknown) (unknown) (no (unknown) (unknown) RDW (11.6-14.8) % (units (unknown) date) unknown) (unknown) (no (unknown) (unknown) RDW 13.9 (units (unkno wn) date) (11.6-14.8) % unknown) (unknown) (no (unknown) (unknown) RESPIRATORY: (units (u nknown) date) Breath sounds unknown) equal bilaterally, no wheezes rales or rhonchi. (unknown) (no (unknown) (unknown) RESPIRATORY: (units (u nknown) date) Denies dyspnea, unknown) cough, wheezing, hemoptysis, sputum. (unknown) (no (unknown) (unknown) Referrals: (units (unk nown) date) unknown) (unknown) (no (unknown) (unknown) Related Data (units (u nknown) date) unknown) (unknown) (no (unknown) (unknown) Respiratory Rate (units (unknown) date) unknown) (unknown) (no (unknown) (unknown) Respiratory Rate (units (unknown) date) 20 11/28/21 07:16 unknown) (unknown) (no (unknown) (unknown) Respiratory Rate (units (unknown) date) 20 unknown) (unknown) (no (unknown) (unknown) Result diagrams: (units (unknown) date) unknown) (unknown) (no (unknown) (unknown) Retention of (units (u nknown) date) urine, unspecified unknown) (unknown) (no (unknown) (unknown) Review of Systems (units (unknown) date) unknown) (unknown) (no (unknown) (unknown) SARS-CoV-2 (PCR) (units (unknown) date) (Negative) unknown) (unknown) (no (unknown) (unknown) SARS-CoV-2 (PCR) (units (unknown) date) Negative unknown) (Negative) (unknown) (no (unknown) (unknown) SKIN: Chronic (units (u nknown) date) wound on buttocks, unknown) no gross drainage more wound on the right side (unknown) (no (unknown) (unknown) SKIN: No rash, no (units (unknown) date) erythema, no unknown) pruritus (unknown) (no (unknown) (unknown) Seasonal (units (unkno wn) date) allergies unknown) (unknown) (no (unknown) (unknown) Signed By: (units (unk nown) date) unknown) (unknown) (no (unknown) (unknown) Sister Mental (units ( unknown) date) health problem unknown) (unknown) (no (unknown) (unknown) Skin ulcer of (units ( unknown) date) ankle unknown) (unknown) (no (unknown) (unknown) Smoking Status: (units (unknown) date) Current some day unknown) smoker (unknown) (no (unknown) (unknown) Smoking Status: (units (unknown) date) Current some day unknown) smoker (unknown) (no (unknown) (unknown) Social History (units (unknown) date) (Reviewed 11/18/21 unknown) @ 05:16 by Noah Jessica DO) (unknown) (no (unknown) (unknown) Sodium (137-145) (units (unknown) date) mmol/L unknown) (unknown) (no (unknown) (unknown) Sodium 141 (units (unk nown) date) (137-145) mmol/L unknown) (unknown) (no (unknown) (unknown) Source: EMS (units (un known) date) unknown) (unknown) (no (unknown) (unknown) Stated Complaint: (units (unknown) date) Bed sores unknown) (unknown) (no (unknown) (unknown) Substance Use (units ( unknown) date) Type: marijuana unknown) (unknown) (no (unknown) (unknown) Surgical changes (units (unknown) date) and devices:? unknown) Partially imaged thoracolumbar spinal fusion (unknown) (no (unknown) (unknown) TECHNIQUE:? One (units (unknown) date) view of the chest unknown) was acquired.? (unknown) (no (unknown) (unknown) Temperature (units (un known) date) unknown) (unknown) (no (unknown) (unknown) Temperature 97.9 (units (unknown) date) F 11/28/21 07:16 unknown) (unknown) (no (unknown) (unknown) Temperature 97.9 (units (unknown) date) F unknown) (unknown) (no (unknown) (unknown) Time Seen by (units (u nknown) date) Provider: 11/28/21 unknown) 07:55 (unknown) (no (unknown) (unknown) Toe laceration (units (unknown) date) unknown) (unknown) (no (unknown) (unknown) Total Bilirubin (units (unknown) date) (0.2-1.3) mg/dL unknown) (unknown) (no (unknown) (unknown) Total Bilirubin (units (unknown) date) 0.6 (0.2-1.3) unknown) mg/dL (unknown) (no (unknown) (unknown) Total Protein (units ( unknown) date) (6.3-8.2) g/dL unknown) (unknown) (no (unknown) (unknown) Total Protein 8.3 (units (unknown) date) H (6.3-8.2) g/dL unknown) (unknown) (no (unknown) (unknown) Triple Phos (units (un known) date) Crystals unknown) (unknown) (no (unknown) (unknown) Triple Phos (units (un known) date) Crystals unknown) Occasional (unknown) (no (unknown) (unknown) UA Complete (units (un known) date) [Urinalysis and unknown) Microscopic] Stat (unknown) (no (unknown) (unknown) UTI (urinary (units (u nknown) date) tract infection) unknown) (unknown) (no (unknown) (unknown) UTI (urinary (units (u nknown) date) tract infection) unknown) due to Enterococcus (unknown) (no (unknown) (unknown) Ur Culture (units (unk nown) date) Indicated? unknown) (unknown) (no (unknown) (unknown) Ur Culture (units (unk nown) date) Indicated? unknown) Specimen cultured (unknown) (no (unknown) (unknown) Ur Leukocyte (units (u nknown) date) Esterase unknown) (NEGATIVE) (unknown) (no (unknown) (unknown) Ur Leukocyte (units (u nknown) date) Esterase 3+ H unknown) (NEGATIVE) (unknown) (no (unknown) (unknown) Ur Specific (units (un known) date) Duarte unknown) (1.000-1.035) (unknown) (no (unknown) (unknown) Ur Specific (units (un known) date) Duarte 1.010 unknown) (1.000-1.035) (unknown) (no (unknown) (unknown) Ur Squamous Epith (units (unknown) date) Cells (0-5/HPF) unknown) (unknown) (no (unknown) (unknown) Ur Squamous Epith (units (unknown) date) Cells 1-5 /hpf unknown) (0-5/HPF) (unknown) (no (unknown) (unknown) Urine Appearance (units (unknown) date) unknown) (unknown) (no (unknown) (unknown) Urine Appearance (units (unknown) date) Clear unknown) (unknown) (no (unknown) (unknown) Urine Bacteria (units (unknown) date) (None) unknown) (unknown) (no (unknown) (unknown) Urine Bacteria (units (unknown) date) Many (>30) H unknown) (None) (unknown) (no (unknown) (unknown) Urine Bilirubin (units (unknown) date) (NEGATIVE) unknown) (unknown) (no (unknown) (unknown) Urine Bilirubin (units (unknown) date) Negative unknown) (NEGATIVE) (unknown) (no (unknown) (unknown) Urine Color (units (un known) date) unknown) (unknown) (no (unknown) (unknown) Urine Color (units (un known) date) Yellow unknown) (unknown) (no (unknown) (unknown) Urine Culture (units ( unknown) date) Stat unknown) (unknown) (no (unknown) (unknown) Urine Glucose (units ( unknown) date) (UA) (Negative) unknown) g/dL (unknown) (no (unknown) (unknown) Urine Glucose (units ( unknown) date) (UA) Negative unknown) (Negative) g/dL (unknown) (no (unknown) (unknown) Urine Ketones (units ( unknown) date) (NEGATIVE) unknown) (unknown) (no (unknown) (unknown) Urine Ketones (units ( unknown) date) Negative unknown) (NEGATIVE) (unknown) (no (unknown) (unknown) Urine Nitrate (units ( unknown) date) (Negative) unknown) (unknown) (no (unknown) (unknown) Urine Nitrate (units ( unknown) date) Positive H unknown) (Negative) (unknown) (no (unknown) (unknown) Urine Occult (units (u nknown) date) Blood (Negative) unknown) (unknown) (no (unknown) (unknown) Urine Occult (units (u nknown) date) Blood 3+ H unknown) (Negative) (unknown) (no (unknown) (unknown) Urine Protein (units ( unknown) date) (Negative) unknown) (unknown) (no (unknown) (unknown) Urine Protein 2+ (units (unknown) date) H (Negative) unknown) (unknown) (no (unknown) (unknown) Urine RBC (units (unkn own) date) (0-5/HPF) unknown) (unknown) (no (unknown) (unknown) Urine RBC 1-5/hpf (units (unknown) date) D (0-5/HPF) unknown) (unknown) (no (unknown) (unknown) Urine (units (unkno wn) date) Urobilinogen (0.2) unknown) E.U./dL (unknown) (no (unknown) (unknown) Urine (units (unkno wn) date) Urobilinogen 0.2 unknown) (0.2) E.U./dL (unknown) (no (unknown) (unknown) Urine WBC (units (unkn own) date) (0-5/HPF) unknown) (unknown) (no (unknown) (unknown) Urine WBC 1-5/hpf (units (unknown) date) (0-5/HPF) unknown) (unknown) (no (unknown) (unknown) Urine pH (units (unkno wn) date) (4.5-8.0) unknown) (unknown) (no (unknown) (unknown) Urine pH 8.0 (units (u nknown) date) (4.5-8.0) unknown) (unknown) (no (unknown) (unknown) Vital Signs (units (un known) date) unknown) (unknown) (no (unknown) (unknown) Vital signs: (units (u nknown) date) unknown) (unknown) (no (unknown) (unknown) Wound of sacral (units (unknown) date) region, subsequent unknown) encounter (08/29/15) (unknown) (no (unknown) (unknown) XR chest 1V Stat (units (unknown) date) unknown) (unknown) (no (unknown) (unknown) [Embedded Image (units (unknown) date) Not Available] unknown) (unknown) (no (unknown) (unknown) abnormalities or (units (unknown) date) focal airspace unknown) disease. (unknown) (no (unknown) (unknown) alcohol intake (units (unknown) date) frequency: unknown) holidays/special occasions only (unknown) (no (unknown) (unknown) alcohol intake: (units (unknown) date) never unknown) (unknown) (no (unknown) (unknown) appear (units (unkno wn) date) unknown) (unknown) (no (unknown) (unknown) area. He says (units ( unknown) date) these are also unknown) painful. She denies any cough chest pain (unknown) (no (unknown) (unknown) cardiopulmonary (units (unknown) date) unknown) (unknown) (no (unknown) (unknown) chlorhexidine (units ( unknown) date) Allergy Mild unknown) ITCHING Verified 11/28/21 07:23 (unknown) (no (unknown) (unknown) confusion (units (unkn own) date) unknown) (unknown) (no (unknown) (unknown) constipation, (units ( unknown) date) melena. unknown) (unknown) (no (unknown) (unknown) ertapenem Allergy (units (unknown) date) Severe SEIZURES unknown) Verified 11/28/21 07:23 (unknown) (no (unknown) (unknown) guarding or (units (un known) date) rebound. unknown) (unknown) (no (unknown) (unknown) hardware is (units (un known) date) unknown) (unknown) (no (unknown) (unknown) household (units (unkn own) date) members: none unknown) (unknown) (no (unknown) (unknown) incompletely (units (u nknown) date) visualized.? No unknown) evidence for hardware complication. (unknown) (no (unknown) (unknown) increased (units (unkn own) date) shoulder pain. She unknown) has multiple wounds on her feet and peritoneal (unknown) (no (unknown) (unknown) intact (units (unkno wn) date) unknown) (unknown) (no (unknown) (unknown) kinked catheter. (units (unknown) date) She returns today unknown) she said that she was freezing cold this (unknown) (no (unknown) (unknown) lactose AdvReac (units (unknown) date) Unknown Verified unknown) 11/28/21 07:23 (unknown) (no (unknown) (unknown) levothyroxine 50 (units (unknown) date) mcg tablet 50 mcg unknown) PO DAILY #30 tabs 10/12/19 (unknown) (no (unknown) (unknown) linezolid (units (unkn own) date) [LINEZOLID] unknown) Allergy Mild Verified 11/28/21 07:23 (unknown) (no (unknown) (unknown) membranes (units (unkn own) date) unknown) (unknown) (no (unknown) (unknown) metronidazole 500 (units (unknown) date) mg tablet 500 mg unknown) .Route .COMPLEX 03/17/20 (unknown) (no (unknown) (unknown) morning she took (units (unknown) date) some Tylenol and unknown) got very hot. She did not take her (unknown) (no (unknown) (unknown) no acute (units (unkno wn) date) distress. unknown) (unknown) (no (unknown) (unknown) now. Wounds do (units (unknown) date) not seem to be unknown) acutely infected. She does have nitrates and (unknown) (no (unknown) (unknown) oxybutynin (units (unk nown) date) chloride 5 mg unknown) tablet 10 mg PO TID 03/17/20 (unknown) (no (unknown) (unknown) pain (units (unkno wn) date) unknown) (unknown) (no (unknown) (unknown) placement chronic (units (unknown) date) wounds presenting unknown) today with fever weakness and pain. She was (unknown) (no (unknown) (unknown) seem to be (units (unk nown) date) sensitive to 3rd unknown) and 4th generation cephalosporins. She is not (unknown) (no (unknown) (unknown) seen and (units (unkno wn) date) evaluated last unknown) week she had some diarrhea at that time found to have (unknown) (no (unknown) (unknown) sennosides 8.6 mg (units (unknown) date) tablet (senna) unknown) 17.2 mg PO BEDTIME #60 tabs 03/17/20 (unknown) (no (unknown) (unknown) septic at this (units (unknown) date) time. Social Work unknown) has been in to see and evaluate patient and (unknown) (no (unknown) (unknown) she will go home (units (unknown) date) with home health unknown) care referral. (unknown) (no (unknown) (unknown) shortness of (units (u nknown) date) breath abdominal unknown) pain. (unknown) (no (unknown) (unknown) signs of a UTI. (units (unknown) date) Previous culture unknown) does show multiple drug resistance but does (unknown) (no (unknown) (unknown) taking (units (unkno wn) date) antibiotics should unknown) help you feel better (unknown) (no (unknown) (unknown) temperature but (units (unknown) date) feels like this unknown) might be a fever. She has body aches she has (unknown) (no (unknown) (unknown) unremarkable.? (units (unknown) date) unknown) (unknown) (no (unknown) (unknown) worse she does not (units (unknown) date) have enough help unknown) at home. Her friend has been taking care of (unknown) (no (unknown) (unknown) worsening or (units (u nknown) date) concerning unknown) symptoms Result panel 24 (unknown) (no (unknown) (unknown) (no value) (units (unk nown) date) unknown) (unknown) (no (unknown) (unknown) Radiologist's (units ( unknown) date) Impression: unknown) (unknown) (no (unknown) (unknown) Date of Service: (units (unknown) date) 11/28/21 unknown) (unknown) (no (unknown) (unknown) (no value) (units (unk nown) date) unknown) (unknown) (no (unknown) (unknown) 11/28/21 09:33 (units (unknown) date) unknown) (unknown) (no (unknown) (unknown) 1 tab PO Q6H PRN (units (unknown) date) (Reason: pain) unknown) Qty: 10 0RF (unknown) (no (unknown) (unknown) 10 mg PO TID (units (u nknown) date) unknown) (unknown) (no (unknown) (unknown) 17.2 mg PO (units (unk nown) date) BEDTIME Qty: 60 unknown) 5RF (unknown) (no (unknown) (unknown) 200 mg PO Q12H (units (unknown) date) Qty: 14 0RF unknown) (unknown) (no (unknown) (unknown) 50 mcg PO DAILY (units (unknown) date) Qty: 30 5RF unknown) (unknown) (no (unknown) (unknown) 500 mg .ROUTE (units ( unknown) date) .COMPLEX unknown) (unknown) (no (unknown) (unknown) 500 mg crush and (units (unknown) date) apply topically to unknown) wound twice weekly; (unknown) (no (unknown) (unknown) Allergies (units (unkn own) date) unknown) (unknown) (no (unknown) (unknown) [place], [place] (units ( unknown) date) [id number] unknown) (unknown) (no (unknown) (unknown) Diabetes mellitus (units (unknown) date) unknown) (unknown) (no (unknown) (unknown) Documented By: KB (units (unknown) date) unknown) (unknown) (no (unknown) (unknown) ED Orders (units (unkn own) date) unknown) (unknown) (no (unknown) (unknown) Emergency Report (units (unknown) date) unknown) (unknown) (no (unknown) (unknown) Home Medications (units (unknown) date) unknown) (unknown) (no (unknown) (unknown) [facility] (units (unknown) date) [address] unknown) [place] [address] (unknown) (no (unknown) (unknown) Lab Results (units (un known) date) unknown) (unknown) (no (unknown) (unknown) Last Admin: (units (un known) date) 11/28/21 09:51 unknown) Dose: 2 mg (unknown) (no (unknown) (unknown) Previous Rx's (units ( unknown) date) unknown) (unknown) (no (unknown) (unknown) Rx Instructions: (units (unknown) date) unknown) (unknown) (no (unknown) (unknown) Signed (units (unkno wn) date) unknown) (unknown) (no (unknown) (unknown) Stop: 11/28/21 (units (unknown) date) 09:37 unknown) (unknown) (no (unknown) (unknown) Vital Signs - 8 (units (unknown) date) hr unknown) (unknown) (no (unknown) (unknown) XRay Report (units (un known) date) unknown) (unknown) (no (unknown) (unknown) must administer (units (unknown) date) with a meal/food unknown) (unknown) (no (unknown) (unknown) (no value) (units (unk nown) date) unknown) (unknown) (no (unknown) (unknown) 11/28/21 11/28/21 (units (unknown) date) 11/28/21 unknown) Range/Units (unknown) (no (unknown) (unknown) 09:33 09:33 09:33 (units (unknown) date) unknown) (unknown) (no (unknown) (unknown) 09:33 09:35 10:10 (units (unknown) date) unknown) (unknown) (no (unknown) (unknown) cefpodoxime 200 (units (unknown) date) mg tablet unknown) (unknown) (no (unknown) (unknown) hydrocodone-aceta (units (unknown) date) minophen 5-325 mg unknown) tablet (unknown) (no (unknown) (unknown) levothyroxine (units ( unknown) date) [Synthroid] 50 mcg unknown) tablet (unknown) (no (unknown) (unknown) metronidazole 500 (units (unknown) date) mg tablet unknown) (unknown) (no (unknown) (unknown) oxybutynin (units (unk nown) date) chloride 5 mg unknown) tablet (unknown) (no (unknown) (unknown) sennosides (units (unk nown) date) [senna] 8.6 mg unknown) tablet (unknown) (no (unknown) (unknown) 11/28/21 (units (unkno wn) date) unknown) (unknown) (no (unknown) (unknown) Medication (units (unk nown) date) Instructions unknown) Recorded (unknown) (no (unknown) (unknown) Medication (units (unk nown) date) Instructions unknown) Recorded Confirmed (unknown) (no (unknown) (unknown) UTI (urinary (units (u nknown) date) tract infection) unknown) due to urinary indwelling catheter, Chronic wound (unknown) (no (unknown) (unknown) but she does have (units (unknown) date) a bilaterally. No unknown) surrounding erythema or severe tenderness. (unknown) (no (unknown) (unknown) her she used to (units (unknown) date) be a lot stronger unknown) she is not strong enough to transfer herself (unknown) (no (unknown) (unknown) of extremity (units (u nknown) date) unknown) (unknown) (no (unknown) (unknown) pain. (units (unkno wn) date) unknown) (unknown) (no (unknown) (unknown) (Synthroid) (units (un known) date) unknown) (unknown) (no (unknown) (unknown) *Continue to take (units (unknown) date) medications as unknown) directed (unknown) (no (unknown) (unknown) *Follow up with (units (unknown) date) your primary care unknown) provider in 2-3 days or call [phone] (unknown) (no (unknown) (unknown) *Return to ER if (units (unknown) date) you should have unknown) increasing weakness fever chills or any new, (unknown) (no (unknown) (unknown) *What to do: At (units (unknown) date) this time you have unknown) been signed up for home health care. Start (unknown) (no (unknown) (unknown) *You have been (units (unknown) date) diagnosed with unknown) chronic wounds, UTI (unknown) (no (unknown) (unknown) 11/28/21 09:33 (units (unknown) date) unknown) (unknown) (no (unknown) (unknown) 11/28/21 09:35 (units (unknown) date) unknown) (unknown) (no (unknown) (unknown) 11/28/21 09:36 (units (unknown) date) unknown) (unknown) (no (unknown) (unknown) 11/28/21 09:40 (units (unknown) date) unknown) (unknown) (no (unknown) (unknown) 11/28/21 10:10 (units (unknown) date) unknown) (unknown) (no (unknown) (unknown) 11/28/21 12:28 (units (unknown) date) unknown) (unknown) (no (unknown) (unknown) 11/28/21 13:16 (units (unknown) date) unknown) (unknown) (no (unknown) (unknown) 07:16 11/28/21 (units (unknown) date) unknown) (unknown) (no (unknown) (unknown) 0807 (units (unkno wn) date) unknown) (unknown) (no (unknown) (unknown) 08:48 11/28/21 (units (unknown) date) unknown) (unknown) (no (unknown) (unknown) 09:00 (units (unkno wn) date) unknown) (unknown) (no (unknown) (unknown) 09:00 11/28/21 (units (unknown) date) unknown) (unknown) (no (unknown) (unknown) 09:30 (units (unkno wn) date) unknown) (unknown) (no (unknown) (unknown) 09:30 11/28/21 (units (unknown) date) unknown) (unknown) (no (unknown) (unknown) 10:00 11/28/21 (units (unknown) date) unknown) (unknown) (no (unknown) (unknown) 10:30 (units (unkno wn) date) unknown) (unknown) (no (unknown) (unknown) 10:30 11/28/21 (units (unknown) date) unknown) (unknown) (no (unknown) (unknown) 11:00 (units (unkno wn) date) unknown) (unknown) (no (unknown) (unknown) 11:00 11/28/21 (units (unknown) date) unknown) (unknown) (no (unknown) (unknown) 11:30 11/28/21 (units (unknown) date) unknown) (unknown) (no (unknown) (unknown) 11:36 (units (unkno wn) date) unknown) (unknown) (no (unknown) (unknown) 11:36 11/28/21 (units (unknown) date) unknown) (unknown) (no (unknown) (unknown) 12 point review (units (unknown) date) of systems is unknown) negative except for those stated above and HPI (unknown) (no (unknown) (unknown) 12:00 (units (unkno wn) date) unknown) (unknown) (no (unknown) (unknown) 12:00 11/28/21 (units (unknown) date) unknown) (unknown) (no (unknown) (unknown) ? (units (unkno wn) date) unknown) (unknown) (no (unknown) (unknown) ABDOMEN: Soft, (units (unknown) date) nontender. unknown) Normoactive bowel sounds all 4 quadrants. No (unknown) (no (unknown) (unknown) AF (paroxysmal (units (unknown) date) atrial unknown) fibrillation) (unknown) (no (unknown) (unknown) ALT (<35) IU/L (units (unknown) date) unknown) (unknown) (no (unknown) (unknown) ALT 50 H (<35) (units (unknown) date) IU/L unknown) (unknown) (no (unknown) (unknown) AST (14-36) IU/L (units (unknown) date) unknown) (unknown) (no (unknown) (unknown) AST 48 H (14-36) (units (unknown) date) IU/L unknown) (unknown) (no (unknown) (unknown) Abrasion, left (units (unknown) date) lower leg, initial unknown) encounter (unknown) (no (unknown) (unknown) Abscess and (units (un known) date) cellulitis of unknown) gluteal region (unknown) (no (unknown) (unknown) Accession Number: (units (unknown) date) [id number] ?? unknown) (unknown) (no (unknown) (unknown) Acct:[id number] (units (unknown) date) unknown) (unknown) (no (unknown) (unknown) Activity (units (unkno wn) date) Restrictions/Addit unknown) ional Instructions: (unknown) (no (unknown) (unknown) Acute UTI (units (unkn own) date) unknown) (unknown) (no (unknown) (unknown) Acute hypokalemia (units (unknown) date) unknown) (unknown) (no (unknown) (unknown) Acute narcotic (units (unknown) date) withdrawal without unknown) complication (unknown) (no (unknown) (unknown) Age/Sex: 66 / F (units (unknown) date) unknown) (unknown) (no (unknown) (unknown) Age/Sex: 66 / F (units (unknown) date) unknown) (unknown) (no (unknown) (unknown) Albumin (3.5-5.0) (units (unknown) date) g/dL unknown) (unknown) (no (unknown) (unknown) Albumin 4.4 (units (un known) date) (3.5-5.0) g/dL unknown) (unknown) (no (unknown) (unknown) Albumin/Globulin (units (unknown) date) Ratio (1.0-2.8) unknown) (unknown) (no (unknown) (unknown) Albumin/Globulin (units (unknown) date) Ratio 1.1 unknown) (1.0-2.8) (unknown) (no (unknown) (unknown) Alkaline (units (unkno wn) date) Phosphatase unknown) (38-126) U/L (unknown) (no (unknown) (unknown) Alkaline (units (unkno wn) date) Phosphatase 78 unknown) (38-126) U/L (unknown) (no (unknown) (unknown) Allergy/AdvReac (units (unknown) date) Type Severity unknown) Reaction Status Date / Time (unknown) (no (unknown) (unknown) Anemia (units (unkno wn) date) unknown) (unknown) (no (unknown) (unknown) BUN (7-17) mg/dL (units (unknown) date) unknown) (unknown) (no (unknown) (unknown) BUN 7 (7-17) (units (u nknown) date) mg/dL unknown) (unknown) (no (unknown) (unknown) BUN/Creatinine (units (unknown) date) Ratio (6-22) unknown) (unknown) (no (unknown) (unknown) BUN/Creatinine (units (unknown) date) Ratio 16.3 (6-22) unknown) (unknown) (no (unknown) (unknown) Baso # (Auto) (units ( unknown) date) (0-100) /uL unknown) (unknown) (no (unknown) (unknown) Baso # (Auto) 0 (units (unknown) date) (0-100) /uL unknown) (unknown) (no (unknown) (unknown) Baso % (Auto) (units ( unknown) date) (0-2) % unknown) (unknown) (no (unknown) (unknown) Baso % (Auto) 0.7 (units (unknown) date) (0-2) % unknown) (unknown) (no (unknown) (unknown) Bilateral lower (units (unknown) date) leg cellulitis unknown) (unknown) (no (unknown) (unknown) Bleeding from (units ( unknown) date) PICC line unknown) (unknown) (no (unknown) (unknown) Blood Culture (units ( unknown) date) Stat unknown) (unknown) (no (unknown) (unknown) Blood Pressure (units (unknown) date) 137/84 unknown) (unknown) (no (unknown) (unknown) Blood Pressure (units (unknown) date) 139/76 07// unknown) 07:16 (unknown) (no (unknown) (unknown) Blood Pressure (units (unknown) date) 141/68 H unknown) (unknown) (no (unknown) (unknown) Blood Pressure (units (unknown) date) 151/83 H unknown) (unknown) (no (unknown) (unknown) Blood Pressure (units (unknown) date) 126/60 156/72 H unknown) (unknown) (no (unknown) (unknown) Blood Pressure (units (unknown) date) 139/76 134/73 unknown) (unknown) (no (unknown) (unknown) Blood Pressure (units (unknown) date) 151/81 H 157/86 H unknown) (unknown) (no (unknown) (unknown) Bones and chest (units (unknown) date) wall:? No unknown) suspicious bony lesions.? Overlying soft tissues (unknown) (no (unknown) (unknown) Brother Mental (units (unknown) date) health problem unknown) (unknown) (no (unknown) (unknown) CARDIOVASCULAR: (units (unknown) date) Denies chest pain, unknown) palpitations, orthopnea, edema (unknown) (no (unknown) (unknown) CARDIOVASCULAR: (units (unknown) date) Regular rate and unknown) rhythm without murmurs, rubs or gallops. (unknown) (no (unknown) (unknown) CBC Auto Diff (units ( unknown) date) [Complete Blood unknown) Count AUTO DIFF] Stat (unknown) (no (unknown) (unknown) CMP (units (unkno wn) date) [Comprehensive unknown) Metabolic Panel] Stat (unknown) (no (unknown) (unknown) COMPARISON:? (units (u nknown) date) [facility] unknown) Hospital, CR, XR CHEST 1 VIEW, 06/12/2019, 13:59.? (unknown) (no (unknown) (unknown) COVID19 -Nasal (units (unknown) date) RAPID/Pre-Proc unknown) Stat (unknown) (no (unknown) (unknown) Calcium (units (unkno wn) date) (8.4-10.2) mg/dL unknown) (unknown) (no (unknown) (unknown) Calcium 9.0 (units (un known) date) (8.4-10.2) mg/dL unknown) (unknown) (no (unknown) (unknown) Carbon Dioxide (units (unknown) date) (22-32) mmol/L unknown) (unknown) (no (unknown) (unknown) Carbon Dioxide 32 (units (unknown) date) (22-32) mmol/L unknown) (unknown) (no (unknown) (unknown) Cat scratch of (units (unknown) date) face unknown) (unknown) (no (unknown) (unknown) Cefpodoxime twice (units (unknown) date) daily for 7 days unknown) (unknown) (no (unknown) (unknown) Cellulitis (units (unk nown) date) unknown) (unknown) (no (unknown) (unknown) Chest x-ray: (units (u nknown) date) unknown) (unknown) (no (unknown) (unknown) Chief Complaint: (units (unknown) date) Wound/Laceration unknown) (unknown) (no (unknown) (unknown) Chloride (98-107) (units (unknown) date) mmol/L unknown) (unknown) (no (unknown) (unknown) Chloride 102 (units (u nknown) date) (98-107) mmol/L unknown) (unknown) (no (unknown) (unknown) 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 (unknown) (no (unknown) (unknown) Chronic (units (unkno wn) date) osteomyelitis unknown) involving multiple sites (unknown) (no (unknown) (unknown) Chronic skin (units (u nknown) date) ulcer unknown) (unknown) (no (unknown) (unknown) Clinical (units (unkno wn) date) Impression: unknown) (unknown) (no (unknown) (unknown) Consult to Home (units (unknown) date) Health Stat unknown) (unknown) (no (unknown) (unknown) 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 unknown) Stat (unknown) (no (unknown) (unknown) Contusion of left (units (unknown) date) lower leg, initial unknown) encounter (unknown) (no (unknown) (unknown) Course (units (unkno wn) date) unknown) (unknown) (no (unknown) (unknown) Creatinine (units (unk nown) date) (0.52-1.04) mg/dL unknown) (unknown) (no (unknown) (unknown) Creatinine 0.43 L (units (unknown) date) (0.52-1.04) mg/dL unknown) (unknown) (no (unknown) (unknown) Cutaneous abscess (units (unknown) date) of buttock unknown) (unknown) (no (unknown) (unknown) : 1955 (units (unknown) date) Acct:[id number] unknown) (unknown) (no (unknown) (unknown) : 1955 (units (unknown) date) unknown) (unknown) (no (unknown) (unknown) Date of Service: (units (unknown) date) 11/28/21 unknown) (unknown) (no (unknown) (unknown) Deep vein (units (unkn own) date) thrombosis unknown) (unknown) (no (unknown) (unknown) Departure (units (unkn own) date) unknown) (unknown) (no (unknown) (unknown) Dictated by: (units (u nknown) date) Elia Grant M.D. on unknown) 11/28/2021 at 11:08 ? ? (unknown) (no (unknown) (unknown) Discharge Plan (units (unknown) date) unknown) (unknown) (no (unknown) (unknown) Discontinued (units (u nknown) date) Medications unknown) (unknown) (no (unknown) (unknown) Dizziness (units (unkn own) date) unknown) (unknown) (no (unknown) (unknown) ER Physician: (units ( unknown) date) Anisa Burton unknown) D.O. (unknown) (no (unknown) (unknown) EXTREMITIES: (units (u nknown) date) Normal range of unknown) motion, no clubbing or edema. Neurovascularly (unknown) (no (unknown) (unknown) Eos # (Auto) (units (u nknown) date) (0-450) /uL unknown) (unknown) (no (unknown) (unknown) Eos # (Auto) 200 (units (unknown) date) (0-450) /uL unknown) (unknown) (no (unknown) (unknown) Eos % (Auto) (units (u nknown) date) (2-4) % unknown) (unknown) (no (unknown) (unknown) Eos % (Auto) 3.1 (units (unknown) date) (2-4) % unknown) (unknown) (no (unknown) (unknown) Estimated GFR (units ( unknown) date) (>60) mL/min unknown) (unknown) (no (unknown) (unknown) Estimated GFR > (units (unknown) date) 60 (>60) mL/min unknown) (unknown) (no (unknown) (unknown) Exam (units (unkno wn) date) unknown) (unknown) (no (unknown) (unknown) FINDINGS:? (units (unk nown) date) unknown) (unknown) (no (unknown) (unknown) Fall (units (unkno wn) date) unknown) (unknown) (no (unknown) (unknown) Family History (units (unknown) date) (Reviewed 11/20/21 unknown) @ 14:27 by Elena Hamilton [facility]) (unknown) (no (unknown) (unknown) GASTROINTESTINAL: (units (unknown) date) Denies nausea, unknown) vomiting, abdominal pain, diarrhea, (unknown) (no (unknown) (unknown) GENERAL: Alert (units (unknown) date) chronically ill unknown) 66-year-old female appears uncomfortable and in (unknown) (no (unknown) (unknown) GENERAL: See HPI (units (unknown) date) unknown) (unknown) (no (unknown) (unknown) : Stephens (units (unkn own) date) catheter in place unknown) (unknown) (no (unknown) (unknown) : Denies (units (unkn own) date) dysuria, unknown) frequency, incontinence, hematuria, urinary retention, flank (unknown) (no (unknown) (unknown) General (units (unkno wn) date) unknown) (unknown) (no (unknown) (unknown) GenericComposite[ (units (unknown) date) Plt Count unknown) (150-400) X10^3/uL ] (unknown) (no (unknown) (unknown) GenericComposite[ (units (unknown) date) Plt Count 205 unknown) (150-400) X10^3/uL ] (unknown) (no (unknown) (unknown) GenericComposite[ (units (unknown) date) RBC (4.0-5.2) unknown) X10^6/uL ] (unknown) (no (unknown) (unknown) GenericComposite[ (units (unknown) date) RBC 4.05 (4.0-5.2) unknown) X10^6/uL ] (unknown) (no (unknown) (unknown) GenericComposite[ (units (unknown) date) WBC (4.5-11.0) unknown) X10^3/uL ] (unknown) (no (unknown) (unknown) GenericComposite[ (units (unknown) date) WBC 5.3 (4.5-11.0) unknown) X10^3/uL ] (unknown) (no (unknown) (unknown) Globulin (units (unkno wn) date) (1.7-4.1) g/dL unknown) (unknown) (no (unknown) (unknown) Globulin 3.9 (units (u nknown) date) (1.7-4.1) g/dL unknown) (unknown) (no (unknown) (unknown) Glucose (80-110) (units (unknown) date) mg/dL unknown) (unknown) (no (unknown) (unknown) Glucose 107 (units (un known) date) (80-110) mg/dL unknown) (unknown) (no (unknown) (unknown) Grandfather (units (un known) date) Cancer unknown) (unknown) (no (unknown) (unknown) HEENT: Denies (units ( unknown) date) sinus pain, ear unknown) pain, sore throat, difficulty swallowing, neck (unknown) (no (unknown) (unknown) HEENT: Head (units (un known) date) atraumatic,EOMI, unknown) pupils reactive, face symmetric, moist mucous (unknown) (no (unknown) (unknown) HPI - (units (unkno wn) date) Wound/Laceration unknown) (unknown) (no (unknown) (unknown) HPI narrative: (units (unknown) date) unknown) (unknown) (no (unknown) (unknown) Hct (36-46) % (units ( unknown) date) unknown) (unknown) (no (unknown) (unknown) Hct 36.9 (36-46) (units (unknown) date) % unknown) (unknown) (no (unknown) (unknown) Hematoma of left (units (unknown) date) lower extremity unknown) (unknown) (no (unknown) (unknown) Hemiparesis (units (un known) date) unknown) (unknown) (no (unknown) (unknown) Hepatitis C (units (un known) date) () unknown) (unknown) (no (unknown) (unknown) Hgb (12.0-16.0) (units (unknown) date) g/dL unknown) (unknown) (no (unknown) (unknown) Hgb 12.4 (units (unkno wn) date) (12.0-16.0) g/dL unknown) (unknown) (no (unknown) (unknown) History of (units (unk nown) date) Present Illness unknown) (unknown) (no (unknown) (unknown) Neo Pritchard MD (units (unknown) date) [Primary Care unknown) Provider] - (unknown) (no (unknown) (unknown) Hospital, CR, XR (units (unknown) date) CHEST FOR PICC 1V, unknown) 01/16/2019, 12:09. (unknown) (no (unknown) (unknown) IMPRESSION:? (units (u nknown) date) Stable unknown) radiographic evaluation of the chest without acute (unknown) (no (unknown) (unknown) INDICATIONS:? (units ( unknown) date) fever unknown) (unknown) (no (unknown) (unknown) Imaging Data (units (u nknown) date) unknown) (unknown) (no (unknown) (unknown) Initial Vital (units ( unknown) date) Signs unknown) (unknown) (no (unknown) (unknown) Initial Vital (units ( unknown) date) Signs: unknown) (unknown) (no (unknown) (unknown) Instructions: DI (units (unknown) date) for Urinary Tract unknown) Infection (UTI) (unknown) (no (unknown) (unknown) [place] (units (unkno wn) date) unknown) (unknown) (no (unknown) (unknown) Lab Data (units (unkno wn) date) unknown) (unknown) (no (unknown) (unknown) Labs: (units (unkno wn) date) unknown) (unknown) (no (unknown) (unknown) Lactate (0.7-2.1) (units (unknown) date) mmol/L unknown) (unknown) (no (unknown) (unknown) Lactate 0.8 (units (un known) date) (0.7-2.1) mmol/L unknown) (unknown) (no (unknown) (unknown) Lactate (Lactic (units (unknown) date) Acid) Stat unknown) (unknown) (no (unknown) (unknown) Left leg (units (unkno wn) date) cellulitis unknown) (unknown) (no (unknown) (unknown) Loc: ED (units (unkno wn) date) unknown) (unknown) (no (unknown) (unknown) Lungs and (units (unkn own) date) pleura:? Lungs are unknown) clear.? No pleural effusions or pneumothorax.? (unknown) (no (unknown) (unknown) Lymph # (Auto) (units (unknown) date) (3501-3803) /uL unknown) (unknown) (no (unknown) (unknown) Lymph # (Auto) (units (unknown) date) 1600 (0986-9028) unknown) /uL (unknown) (no (unknown) (unknown) Lymph % (Auto) (units (unknown) date) (25-40) % unknown) (unknown) (no (unknown) (unknown) Lymph % (Auto) (units (unknown) date) 30.0 (25-40) % unknown) (unknown) (no (unknown) (unknown) MCH (26-34) PG (units (unknown) date) unknown) (unknown) (no (unknown) (unknown) MCH 30.6 (26-34) (units (unknown) date) PG unknown) (unknown) (no (unknown) (unknown) MCHC (30-36) % (units (unknown) date) unknown) (unknown) (no (unknown) (unknown) MCHC 33.6 (30-36) (units (unknown) date) % unknown) (unknown) (no (unknown) (unknown) MCV (80-100) fL (units (unknown) date) unknown) (unknown) (no (unknown) (unknown) MCV 91.1 (80-100) (units (unknown) date) fL unknown) (unknown) (no (unknown) (unknown) MDM - (units (unkno wn) date) Wound/Laceration unknown) (unknown) (no (unknown) (unknown) MDM Narrative (units ( unknown) date) unknown) (unknown) (no (unknown) (unknown) MR#: [id number] (units (unknown) date) unknown) (unknown) (no (unknown) (unknown) MUSCULOSKELETAL: (units (unknown) date) Denies weakness, unknown) joint pain, or bony pain (unknown) (no (unknown) (unknown) Measles (units (unkno wn) date) unknown) (unknown) (no (unknown) (unknown) Mediastinum:? (units ( unknown) date) Mediastinal unknown) contours appear normal.? Heart size is normal.? (unknown) (no (unknown) (unknown) Medical History (units (unknown) date) (Updated 11/28/21 unknown) @ 13:41 by Anisa Burton DO) (unknown) (no (unknown) (unknown) Medical decision (units (unknown) date) making narrative: unknown) (unknown) (no (unknown) (unknown) Mode of arrival: (units (unknown) date) EMS unknown) (unknown) (no (unknown) (unknown) Jerome # (Auto) (units ( unknown) date) (0-900) /uL unknown) (unknown) (no (unknown) (unknown) Jerome # (Auto) 400 (units (unknown) date) (0-900) /uL unknown) (unknown) (no (unknown) (unknown) Jerome % (Auto) (units ( unknown) date) (3-14) % unknown) (unknown) (no (unknown) (unknown) Jerome % (Auto) 7.9 (units (unknown) date) (3-14) % unknown) (unknown) (no (unknown) (unknown) 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) (unknown) (no (unknown) (unknown) Morphine Sulfate (units (unknown) date) (Morphine 2 Mg/Ml unknown) Inj) 2 mg IV NOW ONE (unknown) (no (unknown) (unknown) Multiple falls (units (unknown) date) unknown) (unknown) (no (unknown) (unknown) NEUROLOGIC: (units (un known) date) Denies weakness, unknown) dizziness, headache, numbness, change in speech, (unknown) (no (unknown) (unknown) NEUROLOGICAL: (units ( unknown) date) Alert and oriented unknown) x4.N (unknown) (no (unknown) (unknown) Narrative: (units (unk nown) date) unknown) (unknown) (no (unknown) (unknown) Neut # (Auto) (units ( unknown) date) (3983-1283) /uL unknown) (unknown) (no (unknown) (unknown) Neut # (Auto) (units ( unknown) date) 3100 (3988-3901) unknown) /uL (unknown) (no (unknown) (unknown) Neut % (Auto) (units ( unknown) date) (50-75) % unknown) (unknown) (no (unknown) (unknown) Neut % (Auto) (units ( unknown) date) 58.3 (50-75) % unknown) (unknown) (no (unknown) (unknown) New (units (unkno wn) date) unknown) (unknown) (no (unknown) (unknown) No Action (units (unkn own) date) unknown) (unknown) (no (unknown) (unknown) Ordered: (units (unkno wn) date) unknown) (unknown) (no (unknown) (unknown) Ordering (units (unkno wn) date) Provider: unknown) Anisa Burton D.O. (unknown) (no (unknown) (unknown) Orders (units (unkno wn) date) unknown) (unknown) (no (unknown) (unknown) Oxygen Delivery (units (unknown) date) Method unknown) (unknown) (no (unknown) (unknown) Oxygen Delivery (units (unknown) date) Method 11/28/21 unknown) 07:16 (unknown) (no (unknown) (unknown) Oxygen Delivery (units (unknown) date) Method Room Air unknown) (unknown) (no (unknown) (unknown) PICC (units (unkno wn) date) (peripherally unknown) inserted central catheter) in place (unknown) (no (unknown) (unknown) PROCEDURE:? XR (units (unknown) date) CHEST 1V unknown) (unknown) (no (unknown) (unknown) PSYCHIATRIC: No (units (unknown) date) concerning unknown) psychosocial issues. (unknown) (no (unknown) (unknown) Paraplegia (units (unk nown) date) (02/14/16) unknown) (unknown) (no (unknown) (unknown) Paraplegic spinal (units (unknown) date) paralysis unknown) (unknown) (no (unknown) (unknown) Patient (units (unkno wn) date) Disposition: Home unknown) (unknown) (no (unknown) (unknown) Patient History (units (unknown) date) unknown) (unknown) (no (unknown) (unknown) Patient is a (units (u nknown) date) 66-year-old female unknown) history of paraplegia chronic Stephens catheter (unknown) (no (unknown) (unknown) Patient is is (units ( unknown) date) chronically unknown) bed-bound she has chronic wounds which do seem to be (unknown) (no (unknown) (unknown) Patient: (units (unkno wn) date) Karina Diallo MR#: unknown) [id number] (unknown) (no (unknown) (unknown) Patient: (units (unkno wn) date) Karina Diallo unknown) (unknown) (no (unknown) (unknown) Penicillins (units (un known) date) Allergy Unknown unknown) Verified 11/28/21 07:23 (unknown) (no (unknown) (unknown) Post-op bleeding (units (unknown) date) unknown) (unknown) (no (unknown) (unknown) Potassium (units (unkn own) date) (3.4-5.1) mmol/L unknown) (unknown) (no (unknown) (unknown) Potassium 3.5 (units ( unknown) date) (3.4-5.1) mmol/L unknown) (unknown) (no (unknown) (unknown) Prescriptions: (units (unknown) date) unknown) (unknown) (no (unknown) (unknown) Pressure ulcer of (units (unknown) date) contiguous site of unknown) back, buttock and hip, stage 2 (unknown) (no (unknown) (unknown) Pressure ulcer of (units (unknown) date) left thigh unknown) (unknown) (no (unknown) (unknown) Procalcitonin (units ( unknown) date) (<0.5) ng/mL unknown) (unknown) (no (unknown) (unknown) Procalcitonin (units ( unknown) date) 0.07 (<0.5) ng/mL unknown) (unknown) (no (unknown) (unknown) Procalcitonin (units ( unknown) date) Stat unknown) (unknown) (no (unknown) (unknown) Procedure: XR (units ( unknown) date) chest 1V unknown) (unknown) (no (unknown) (unknown) Pulse Oximetry (units (unknown) date) 100 unknown) (unknown) (no (unknown) (unknown) Pulse Oximetry (units (unknown) date) 100 11/28/21 07:16 unknown) (unknown) (no (unknown) (unknown) Pulse Oximetry 98 (units (unknown) date) unknown) (unknown) (no (unknown) (unknown) Pulse Oximetry (units (unknown) date) 100 100 unknown) (unknown) (no (unknown) (unknown) Pulse Oximetry (units (unknown) date) 100 98 unknown) (unknown) (no (unknown) (unknown) Pulse Oximetry 97 (units (unknown) date) 100 unknown) (unknown) (no (unknown) (unknown) Pulse Oximetry 99 (units (unknown) date) 99 unknown) (unknown) (no (unknown) (unknown) Pulse Rate 77 (units ( unknown) date) unknown) (unknown) (no (unknown) (unknown) Pulse Rate 81 (units ( unknown) date) unknown) (unknown) (no (unknown) (unknown) Pulse Rate 95 H (units (unknown) date) 11/28/21 07:16 unknown) (unknown) (no (unknown) (unknown) Pulse Rate 100 H (units (unknown) date) 90 unknown) (unknown) (no (unknown) (unknown) Pulse Rate 75 78 (units (unknown) date) unknown) (unknown) (no (unknown) (unknown) Pulse Rate 82 83 (units (unknown) date) unknown) (unknown) (no (unknown) (unknown) Pulse Rate 95 H (units (unknown) date) 91 H unknown) (unknown) (no (unknown) (unknown) RDW (11.6-14.8) % (units (unknown) date) unknown) (unknown) (no (unknown) (unknown) RDW 13.9 (units (unkno wn) date) (11.6-14.8) % unknown) (unknown) (no (unknown) (unknown) RESPIRATORY: (units (u nknown) date) Breath sounds unknown) equal bilaterally, no wheezes rales or rhonchi. (unknown) (no (unknown) (unknown) RESPIRATORY: (units (u nknown) date) Denies dyspnea, unknown) cough, wheezing, hemoptysis, sputum. (unknown) (no (unknown) (unknown) Referrals: (units (unk nown) date) unknown) (unknown) (no (unknown) (unknown) Related Data (units (u nknown) date) unknown) (unknown) (no (unknown) (unknown) Respiratory Rate (units (unknown) date) unknown) (unknown) (no (unknown) (unknown) Respiratory Rate (units (unknown) date) 20 11/28/21 07:16 unknown) (unknown) (no (unknown) (unknown) Respiratory Rate (units (unknown) date) 20 unknown) (unknown) (no (unknown) (unknown) Result diagrams: (units (unknown) date) unknown) (unknown) (no (unknown) (unknown) Retention of (units (u nknown) date) urine, unspecified unknown) (unknown) (no (unknown) (unknown) Review of Systems (units (unknown) date) unknown) (unknown) (no (unknown) (unknown) SARS-CoV-2 (PCR) (units (unknown) date) (Negative) unknown) (unknown) (no (unknown) (unknown) SARS-CoV-2 (PCR) (units (unknown) date) Negative unknown) (Negative) (unknown) (no (unknown) (unknown) SKIN: Chronic (units (u nknown) date) wound on buttocks, unknown) no gross drainage more wound on the right side (unknown) (no (unknown) (unknown) SKIN: No rash, no (units (unknown) date) erythema, no unknown) pruritus (unknown) (no (unknown) (unknown) Seasonal (units (unkno wn) date) allergies unknown) (unknown) (no (unknown) (unknown) Signed By: (units (unk nown) date) unknown) (unknown) (no (unknown) (unknown) Sister Mental (units ( unknown) date) health problem unknown) (unknown) (no (unknown) (unknown) Skin ulcer of (units ( unknown) date) ankle unknown) (unknown) (no (unknown) (unknown) Smoking Status: (units (unknown) date) Current some day unknown) smoker (unknown) (no (unknown) (unknown) Smoking Status: (units (unknown) date) Current some day unknown) smoker (unknown) (no (unknown) (unknown) Social History (units (unknown) date) (Reviewed 11/18/21 unknown) @ 05:16 by Noah Jessica DO) (unknown) (no (unknown) (unknown) Sodium (137-145) (units (unknown) date) mmol/L unknown) (unknown) (no (unknown) (unknown) Sodium 141 (units (unk nown) date) (137-145) mmol/L unknown) (unknown) (no (unknown) (unknown) Source: EMS (units (un known) date) unknown) (unknown) (no (unknown) (unknown) Stated Complaint: (units (unknown) date) Bed sores unknown) (unknown) (no (unknown) (unknown) Substance Use (units ( unknown) date) Type: marijuana unknown) (unknown) (no (unknown) (unknown) Surgical changes (units (unknown) date) and devices:? unknown) Partially imaged thoracolumbar spinal fusion (unknown) (no (unknown) (unknown) TECHNIQUE:? One (units (unknown) date) view of the chest unknown) was acquired.? (unknown) (no (unknown) (unknown) Temperature (units (un known) date) unknown) (unknown) (no (unknown) (unknown) Temperature 97.9 (units (unknown) date) F 11/28/21 07:16 unknown) (unknown) (no (unknown) (unknown) Temperature 97.9 (units (unknown) date) F unknown) (unknown) (no (unknown) (unknown) Time Seen by (units (u nknown) date) Provider: 11/28/21 unknown) 07:55 (unknown) (no (unknown) (unknown) Toe laceration (units (unknown) date) unknown) (unknown) (no (unknown) (unknown) Total Bilirubin (units (unknown) date) (0.2-1.3) mg/dL unknown) (unknown) (no (unknown) (unknown) Total Bilirubin (units (unknown) date) 0.6 (0.2-1.3) unknown) mg/dL (unknown) (no (unknown) (unknown) Total Protein (units ( unknown) date) (6.3-8.2) g/dL unknown) (unknown) (no (unknown) (unknown) Total Protein 8.3 (units (unknown) date) H (6.3-8.2) g/dL unknown) (unknown) (no (unknown) (unknown) Triple Phos (units (un known) date) Crystals unknown) (unknown) (no (unknown) (unknown) Triple Phos (units (un known) date) Crystals unknown) Occasional (unknown) (no (unknown) (unknown) UA Complete (units (un known) date) [Urinalysis and unknown) Microscopic] Stat (unknown) (no (unknown) (unknown) UTI (urinary (units (u nknown) date) tract infection) unknown) (unknown) (no (unknown) (unknown) UTI (urinary (units (u nknown) date) tract infection) unknown) due to Enterococcus (unknown) (no (unknown) (unknown) Ur Culture (units (unk nown) date) Indicated? unknown) (unknown) (no (unknown) (unknown) Ur Culture (units (unk nown) date) Indicated? unknown) Specimen cultured (unknown) (no (unknown) (unknown) Ur Leukocyte (units (u nknown) date) Esterase unknown) (NEGATIVE) (unknown) (no (unknown) (unknown) Ur Leukocyte (units (u nknown) date) Esterase 3+ H unknown) (NEGATIVE) (unknown) (no (unknown) (unknown) Ur Specific (units (un known) date) Duarte unknown) (1.000-1.035) (unknown) (no (unknown) (unknown) Ur Specific (units (un known) date) Duarte 1.010 unknown) (1.000-1.035) (unknown) (no (unknown) (unknown) Ur Squamous Epith (units (unknown) date) Cells (0-5/HPF) unknown) (unknown) (no (unknown) (unknown) Ur Squamous Epith (units (unknown) date) Cells 1-5 /hpf unknown) (0-5/HPF) (unknown) (no (unknown) (unknown) Urine Appearance (units (unknown) date) unknown) (unknown) (no (unknown) (unknown) Urine Appearance (units (unknown) date) Clear unknown) (unknown) (no (unknown) (unknown) Urine Bacteria (units (unknown) date) (None) unknown) (unknown) (no (unknown) (unknown) Urine Bacteria (units (unknown) date) Many (>30) H unknown) (None) (unknown) (no (unknown) (unknown) Urine Bilirubin (units (unknown) date) (NEGATIVE) unknown) (unknown) (no (unknown) (unknown) Urine Bilirubin (units (unknown) date) Negative unknown) (NEGATIVE) (unknown) (no (unknown) (unknown) Urine Color (units (un known) date) unknown) (unknown) (no (unknown) (unknown) Urine Color (units (un known) date) Yellow unknown) (unknown) (no (unknown) (unknown) Urine Culture (units ( unknown) date) Stat unknown) (unknown) (no (unknown) (unknown) Urine Glucose (units ( unknown) date) (UA) (Negative) unknown) g/dL (unknown) (no (unknown) (unknown) Urine Glucose (units ( unknown) date) (UA) Negative unknown) (Negative) g/dL (unknown) (no (unknown) (unknown) Urine Ketones (units ( unknown) date) (NEGATIVE) unknown) (unknown) (no (unknown) (unknown) Urine Ketones (units ( unknown) date) Negative unknown) (NEGATIVE) (unknown) (no (unknown) (unknown) Urine Nitrate (units ( unknown) date) (Negative) unknown) (unknown) (no (unknown) (unknown) Urine Nitrate (units ( unknown) date) Positive H unknown) (Negative) (unknown) (no (unknown) (unknown) Urine Occult (units (u nknown) date) Blood (Negative) unknown) (unknown) (no (unknown) (unknown) Urine Occult (units (u nknown) date) Blood 3+ H unknown) (Negative) (unknown) (no (unknown) (unknown) Urine Protein (units ( unknown) date) (Negative) unknown) (unknown) (no (unknown) (unknown) Urine Protein 2+ (units (unknown) date) H (Negative) unknown) (unknown) (no (unknown) (unknown) Urine RBC (units (unkn own) date) (0-5/HPF) unknown) (unknown) (no (unknown) (unknown) Urine RBC 1-5/hpf (units (unknown) date) D (0-5/HPF) unknown) (unknown) (no (unknown) (unknown) Urine (units (unkno wn) date) Urobilinogen (0.2) unknown) E.U./dL (unknown) (no (unknown) (unknown) Urine (units (unkno wn) date) Urobilinogen 0.2 unknown) (0.2) E.U./dL (unknown) (no (unknown) (unknown) Urine WBC (units (unkn own) date) (0-5/HPF) unknown) (unknown) (no (unknown) (unknown) Urine WBC 1-5/hpf (units (unknown) date) (0-5/HPF) unknown) (unknown) (no (unknown) (unknown) Urine pH (units (unkno wn) date) (4.5-8.0) unknown) (unknown) (no (unknown) (unknown) Urine pH 8.0 (units (u nknown) date) (4.5-8.0) unknown) (unknown) (no (unknown) (unknown) Vital Signs (units (un known) date) unknown) (unknown) (no (unknown) (unknown) Vital signs: (units (u nknown) date) unknown) (unknown) (no (unknown) (unknown) Wound of sacral (units (unknown) date) region, subsequent unknown) encounter (08/29/15) (unknown) (no (unknown) (unknown) XR chest 1V Stat (units (unknown) date) unknown) (unknown) (no (unknown) (unknown) [Embedded Image (units (unknown) date) Not Available] unknown) (unknown) (no (unknown) (unknown) abnormalities or (units (unknown) date) focal airspace unknown) disease. (unknown) (no (unknown) (unknown) alcohol intake (units (unknown) date) frequency: unknown) holidays/special occasions only (unknown) (no (unknown) (unknown) alcohol intake: (units (unknown) date) never unknown) (unknown) (no (unknown) (unknown) appear (units (unkno wn) date) unknown) (unknown) (no (unknown) (unknown) area. He says (units ( unknown) date) these are also unknown) painful. She denies any cough chest pain (unknown) (no (unknown) (unknown) cardiopulmonary (units (unknown) date) unknown) (unknown) (no (unknown) (unknown) cefpodoxime 200 (units (unknown) date) mg tablet 200 mg unknown) PO Q12H #14 tabs 11/28/21 (unknown) (no (unknown) (unknown) chlorhexidine (units ( unknown) date) Allergy Mild unknown) ITCHING Verified 11/28/21 07:23 (unknown) (no (unknown) (unknown) confusion (units (unkn own) date) unknown) (unknown) (no (unknown) (unknown) constipation, (units ( unknown) date) melena. unknown) (unknown) (no (unknown) (unknown) ertapenem Allergy (units (unknown) date) Severe SEIZURES unknown) Verified 11/28/21 07:23 (unknown) (no (unknown) (unknown) guarding or (units (un known) date) rebound. unknown) (unknown) (no (unknown) (unknown) hardware is (units (un known) date) unknown) (unknown) (no (unknown) (unknown) household (units (unkn own) date) members: none unknown) (unknown) (no (unknown) (unknown) hydrocodone 5 (units ( unknown) date) mg-acetaminophen unknown) 325 1 tab PO Q6H PRN pain #10 tabs 11/28/21 (unknown) (no (unknown) (unknown) incompletely (units (u nknown) date) visualized.? No unknown) evidence for hardware complication. (unknown) (no (unknown) (unknown) increased (units (unkn own) date) shoulder pain. She unknown) has multiple wounds on her feet and peritoneal (unknown) (no (unknown) (unknown) intact (units (unkno wn) date) unknown) (unknown) (no (unknown) (unknown) kinked catheter. (units (unknown) date) She returns today unknown) she said that she was freezing cold this (unknown) (no (unknown) (unknown) lactose AdvReac (units (unknown) date) Unknown Verified unknown) 11/28/21 07:23 (unknown) (no (unknown) (unknown) levothyroxine 50 (units (unknown) date) mcg tablet 50 mcg unknown) PO DAILY #30 tabs 10/12/19 (unknown) (no (unknown) (unknown) linezolid (units (unkn own) date) [LINEZOLID] unknown) Allergy Mild Verified 11/28/21 07:23 (unknown) (no (unknown) (unknown) membranes (units (unkn own) date) unknown) (unknown) (no (unknown) (unknown) metronidazole 500 (units (unknown) date) mg tablet 500 mg unknown) .Route .COMPLEX 03/17/20 (unknown) (no (unknown) (unknown) mg tablet (units (unkn own) date) unknown) (unknown) (no (unknown) (unknown) morning she took (units (unknown) date) some Tylenol and unknown) got very hot. She did not take her (unknown) (no (unknown) (unknown) no acute (units (unkno wn) date) distress. unknown) (unknown) (no (unknown) (unknown) now. Wounds do (units (unknown) date) not seem to be unknown) acutely infected. She does have nitrates and (unknown) (no (unknown) (unknown) oxybutynin (units (unk nown) date) chloride 5 mg unknown) tablet 10 mg PO TID 03/17/20 (unknown) (no (unknown) (unknown) pain (units (unkno wn) date) unknown) (unknown) (no (unknown) (unknown) placement chronic (units (unknown) date) wounds presenting unknown) today with fever weakness and pain. She was (unknown) (no (unknown) (unknown) seem to be (units (unk nown) date) sensitive to 3rd unknown) and 4th generation cephalosporins. She is not (unknown) (no (unknown) (unknown) seen and (units (unkno wn) date) evaluated last unknown) week she had some diarrhea at that time found to have (unknown) (no (unknown) (unknown) sennosides 8.6 mg (units (unknown) date) tablet (senna) unknown) 17.2 mg PO BEDTIME #60 tabs 03/17/20 (unknown) (no (unknown) (unknown) septic at this (units (unknown) date) time. Social Work unknown) has been in to see and evaluate patient and (unknown) (no (unknown) (unknown) she will go home (units (unknown) date) with home health unknown) care referral. (unknown) (no (unknown) (unknown) shortness of (units (u nknown) date) breath abdominal unknown) pain. (unknown) (no (unknown) (unknown) signs of a UTI. (units (unknown) date) Previous culture unknown) does show multiple drug resistance but does (unknown) (no (unknown) (unknown) taking (units (unkno wn) date) antibiotics should unknown) help you feel better (unknown) (no (unknown) (unknown) temperature but (units (unknown) date) feels like this unknown) might be a fever. She has body aches she has (unknown) (no (unknown) (unknown) unremarkable.? (units (unknown) date) unknown) (unknown) (no (unknown) (unknown) worse she does not (units (unknown) date) have enough help unknown) at home. Her friend has been taking care of (unknown) (no (unknown) (unknown) worsening or (units (u nknown) date) concerning unknown) symptoms Result panel 25 (unknown) (no (unknown) (unknown) (no value) (units (unk nown) date) unknown) (unknown) (no (unknown) (unknown) Radiologist's (units ( unknown) date) Impression: unknown) (unknown) (no (unknown) (unknown) Date of Service: (units (unknown) date) 11/28/21 unknown) (unknown) (no (unknown) (unknown) (no value) (units (unk nown) date) unknown) (unknown) (no (unknown) (unknown) <Electronically (units (unknown) date) signed by Anisa Burton D.O.> (unknown) (no (unknown) (unknown) 11/28/21 09:33 (units (unknown) date) unknown) (unknown) (no (unknown) (unknown) 11/28/211955 (units ( unknown) date) unknown) (unknown) (no (unknown) (unknown) 1 tab PO Q6H PRN (units (unknown) date) (Reason: pain) unknown) Qty: 10 0RF (unknown) (no (unknown) (unknown) 10 mg PO TID (units (u nknown) date) unknown) (unknown) (no (unknown) (unknown) 17.2 mg PO (units (unk nown) date) BEDTIME Qty: 60 unknown) 5RF (unknown) (no (unknown) (unknown) 200 mg PO Q12H (units (unknown) date) Qty: 14 0RF unknown) (unknown) (no (unknown) (unknown) 50 mcg PO DAILY (units (unknown) date) Qty: 30 5RF unknown) (unknown) (no (unknown) (unknown) 500 mg .ROUTE (units ( unknown) date) .COMPLEX unknown) (unknown) (no (unknown) (unknown) 500 mg crush and (units (unknown) date) apply topically to unknown) wound twice weekly; (unknown) (no (unknown) (unknown) Allergies (units (unkn own) date) unknown) (unknown) (no (unknown) (unknown) [place] (units ( unknown) date) [id number] unknown) (unknown) (no (unknown) (unknown) Diabetes mellitus (units (unknown) date) unknown) (unknown) (no (unknown) (unknown) Documented By: LESLIE (units (unknown) date) unknown) (unknown) (no (unknown) (unknown) ED Orders (units (unkn own) date) unknown) (unknown) (no (unknown) (unknown) Emergency Report (units (unknown) date) unknown) (unknown) (no (unknown) (unknown) Home Medications (units (unknown) date) unknown) (unknown) (no (unknown) (unknown) [facility] (units (unknown) date) [address] unknown) [place] [address] (unknown) (no (unknown) (unknown) Lab Results (units (un known) date) unknown) (unknown) (no (unknown) (unknown) Last Admin: (units (un known) date) 11/28/21 09:51 unknown) Dose: 2 mg (unknown) (no (unknown) (unknown) Previous Rx's (units ( unknown) date) unknown) (unknown) (no (unknown) (unknown) Rx Instructions: (units (unknown) date) unknown) (unknown) (no (unknown) (unknown) Signed (units (unkno wn) date) unknown) (unknown) (no (unknown) (unknown) Stop: 11/28/21 (units (unknown) date) 09:37 unknown) (unknown) (no (unknown) (unknown) Vital Signs - 8 (units (unknown) date) hr unknown) (unknown) (no (unknown) (unknown) XRay Report (units (un known) date) unknown) (unknown) (no (unknown) (unknown) must administer (units (unknown) date) with a meal/food unknown) (unknown) (no (unknown) (unknown) (no value) (units (unk nown) date) unknown) (unknown) (no (unknown) (unknown) 11/28/21 11/28/21 (units (unknown) date) 11/28/21 unknown) Range/Units (unknown) (no (unknown) (unknown) 09:33 09:33 09:33 (units (unknown) date) unknown) (unknown) (no (unknown) (unknown) 09:33 09:35 10:10 (units (unknown) date) unknown) (unknown) (no (unknown) (unknown) cefpodoxime 200 (units (unknown) date) mg tablet unknown) (unknown) (no (unknown) (unknown) hydrocodone-aceta (units (unknown) date) minophen 5-325 mg unknown) tablet (unknown) (no (unknown) (unknown) levothyroxine (units ( unknown) date) [Synthroid] 50 mcg unknown) tablet (unknown) (no (unknown) (unknown) metronidazole 500 (units (unknown) date) mg tablet unknown) (unknown) (no (unknown) (unknown) oxybutynin (units (unk nown) date) chloride 5 mg unknown) tablet (unknown) (no (unknown) (unknown) sennosides (units (unk nown) date) [senna] 8.6 mg unknown) tablet (unknown) (no (unknown) (unknown) 11/28/21 (units (unkno wn) date) unknown) (unknown) (no (unknown) (unknown) Medication (units (unk nown) date) Instructions unknown) Recorded (unknown) (no (unknown) (unknown) Medication (units (unk nown) date) Instructions unknown) Recorded Confirmed (unknown) (no (unknown) (unknown) UTI (urinary (units (u nknown) date) tract infection) unknown) due to urinary indwelling catheter, Chronic wound (unknown) (no (unknown) (unknown) but she does have (units (unknown) date) a bilaterally. No unknown) surrounding erythema or severe tenderness. (unknown) (no (unknown) (unknown) can have some (units ( unknown) date) deliver these unknown) medications to your house she will have to call and (unknown) (no (unknown) (unknown) contact (units (unkno wn) date) unknown) (unknown) (no (unknown) (unknown) her she used to (units (unknown) date) be a lot stronger unknown) she is not strong enough to transfer herself (unknown) (no (unknown) (unknown) of extremity (units (u nknown) date) unknown) (unknown) (no (unknown) (unknown) pain. (units (unkno wn) date) unknown) (unknown) (no (unknown) (unknown) what they were (units (unknown) date) able to provide. unknown) The time she does not meet any sort of (unknown) (no (unknown) (unknown) (Synthroid) (units (un known) date) unknown) (unknown) (no (unknown) (unknown) *Continue to take (units (unknown) date) medications as unknown) directed--> sent to [facility] you (unknown) (no (unknown) (unknown) *Follow up with (units (unknown) date) your primary care unknown) provider in 2-3 days or call [phone] (unknown) (no (unknown) (unknown) *Return to ER if (units (unknown) date) you should have unknown) increasing weakness fever chills or any new, (unknown) (no (unknown) (unknown) *What to do: At (units (unknown) date) this time you have unknown) been signed up for home health care. Start (unknown) (no (unknown) (unknown) *You have been (units (unknown) date) diagnosed with unknown) chronic wounds, UTI (unknown) (no (unknown) (unknown) 11/28/21 12:28 (units (unknown) date) unknown) (unknown) (no (unknown) (unknown) 11/28/21 13:16 (units (unknown) date) unknown) (unknown) (no (unknown) (unknown) 0807 (units (unkno wn) date) unknown) (unknown) (no (unknown) (unknown) 12 point review (units (unknown) date) of systems is unknown) negative except for those stated above and HPI (unknown) (no (unknown) (unknown) 12:00 11/28/21 (units (unknown) date) unknown) (unknown) (no (unknown) (unknown) 12:30 (units (unkno wn) date) unknown) (unknown) (no (unknown) (unknown) 12:30 11/28/21 (units (unknown) date) unknown) (unknown) (no (unknown) (unknown) 13:00 11/28/21 (units (unknown) date) unknown) (unknown) (no (unknown) (unknown) 13:01 (units (unkno wn) date) unknown) (unknown) (no (unknown) (unknown) 13:01 11/28/21 (units (unknown) date) unknown) (unknown) (no (unknown) (unknown) 13:30 (units (unkno wn) date) unknown) (unknown) (no (unknown) (unknown) 13:30 11/28/21 (units (unknown) date) unknown) (unknown) (no (unknown) (unknown) 14:00 11/28/21 (units (unknown) date) unknown) (unknown) (no (unknown) (unknown) 14:30 (units (unkno wn) date) unknown) (unknown) (no (unknown) (unknown) ? (units (unkno wn) date) unknown) (unknown) (no (unknown) (unknown) ABDOMEN: Soft, (units (unknown) date) nontender. unknown) Normoactive bowel sounds all 4 quadrants. No (unknown) (no (unknown) (unknown) AF (paroxysmal (units (unknown) date) atrial unknown) fibrillation) (unknown) (no (unknown) (unknown) ALT (<35) IU/L (units (unknown) date) unknown) (unknown) (no (unknown) (unknown) ALT 50 H (<35) (units (unknown) date) IU/L unknown) (unknown) (no (unknown) (unknown) AST (14-36) IU/L (units (unknown) date) unknown) (unknown) (no (unknown) (unknown) AST 48 H (14-36) (units (unknown) date) IU/L unknown) (unknown) (no (unknown) (unknown) Abrasion, left (units (unknown) date) lower leg, initial unknown) encounter (unknown) (no (unknown) (unknown) Abscess and (units (un known) date) cellulitis of unknown) gluteal region (unknown) (no (unknown) (unknown) Accession Number: (units (unknown) date) [id number] ?? unknown) (unknown) (no (unknown) (unknown) Acct:[id number] (units (unknown) date) unknown) (unknown) (no (unknown) (unknown) Activity (units (unkno wn) date) Restrictions/Addit unknown) ional Instructions: (unknown) (no (unknown) (unknown) Acute UTI (units (unkn own) date) unknown) (unknown) (no (unknown) (unknown) Acute hypokalemia (units (unknown) date) unknown) (unknown) (no (unknown) (unknown) Acute narcotic (units (unknown) date) withdrawal without unknown) complication (unknown) (no (unknown) (unknown) Age/Sex: 66 / F (units (unknown) date) unknown) (unknown) (no (unknown) (unknown) Age/Sex: 66 / F (units (unknown) date) unknown) (unknown) (no (unknown) (unknown) Albumin (3.5-5.0) (units (unknown) date) g/dL unknown) (unknown) (no (unknown) (unknown) Albumin 4.4 (units (un known) date) (3.5-5.0) g/dL unknown) (unknown) (no (unknown) (unknown) Albumin/Globulin (units (unknown) date) Ratio (1.0-2.8) unknown) (unknown) (no (unknown) (unknown) Albumin/Globulin (units (unknown) date) Ratio 1.1 unknown) (1.0-2.8) (unknown) (no (unknown) (unknown) Alkaline (units (unkno wn) date) Phosphatase unknown) (38-126) U/L (unknown) (no (unknown) (unknown) Alkaline (units (unkno wn) date) Phosphatase 78 unknown) (38-126) U/L (unknown) (no (unknown) (unknown) Allergy/AdvReac (units (unknown) date) Type Severity unknown) Reaction Status Date / Time (unknown) (no (unknown) (unknown) Anemia (units (unkno wn) date) unknown) (unknown) (no (unknown) (unknown) BUN (7-17) mg/dL (units (unknown) date) unknown) (unknown) (no (unknown) (unknown) BUN 7 (7-17) (units (u nknown) date) mg/dL unknown) (unknown) (no (unknown) (unknown) BUN/Creatinine (units (unknown) date) Ratio (6-22) unknown) (unknown) (no (unknown) (unknown) BUN/Creatinine (units (unknown) date) Ratio 16.3 (6-22) unknown) (unknown) (no (unknown) (unknown) Baso # (Auto) (units ( unknown) date) (0-100) /uL unknown) (unknown) (no (unknown) (unknown) Baso # (Auto) 0 (units (unknown) date) (0-100) /uL unknown) (unknown) (no (unknown) (unknown) Baso % (Auto) (units ( unknown) date) (0-2) % unknown) (unknown) (no (unknown) (unknown) Baso % (Auto) 0.7 (units (unknown) date) (0-2) % unknown) (unknown) (no (unknown) (unknown) Bilateral lower (units (unknown) date) leg cellulitis unknown) (unknown) (no (unknown) (unknown) Bleeding from (units ( unknown) date) PICC line unknown) (unknown) (no (unknown) (unknown) Blood Pressure (units (unknown) date) unknown) (unknown) (no (unknown) (unknown) Blood Pressure (units (unknown) date) 181/77 H unknown) (unknown) (no (unknown) (unknown) Blood Pressure (units (unknown) date) 139/76 11/28/21 unknown) 07:16 (unknown) (no (unknown) (unknown) Blood Pressure (units (unknown) date) 152/72 H unknown) (unknown) (no (unknown) (unknown) Blood Pressure (units (unknown) date) 151/83 H 149/73 H unknown) (unknown) (no (unknown) (unknown) Blood Pressure (units (unknown) date) 175/81 H 141/70 H unknown) (unknown) (no (unknown) (unknown) Bones and chest (units (unknown) date) wall:? No unknown) suspicious bony lesions.? Overlying soft tissues (unknown) (no (unknown) (unknown) Brother Mental (units (unknown) date) health problem unknown) (unknown) (no (unknown) (unknown) CARDIOVASCULAR: (units (unknown) date) Denies chest pain, unknown) palpitations, orthopnea, edema (unknown) (no (unknown) (unknown) CARDIOVASCULAR: (units (unknown) date) Regular rate and unknown) rhythm without murmurs, rubs or gallops. (unknown) (no (unknown) (unknown) COMPARISON:? (units (u nknown) date) [facility] unknown[facility]ST 1 V[facility], 06/12/2019, 13:59.? (unknown) (no (unknown) (unknown) Calcium (units (unkno wn) date) (8.4-10.2) mg/dL unknown) (unknown) (no (unknown) (unknown) Calcium 9.0 (units (un known) date) (8.4-10.2) mg/dL unknown) (unknown) (no (unknown) (unknown) Carbon Dioxide (units (unknown) date) (22-32) mmol/L unknown) (unknown) (no (unknown) (unknown) Carbon Dioxide 32 (units (unknown) date) (22-32) mmol/L unknown) (unknown) (no (unknown) (unknown) Cat scratch of (units (unknown) date) face unknown) (unknown) (no (unknown) (unknown) Cefpodoxime twice (units (unknown) date) daily for 7 days unknown) (unknown) (no (unknown) (unknown) Cellulitis (units (unk nown) date) unknown) (unknown) (no (unknown) (unknown) Chest x-ray: (units (u nknown) date) unknown) (unknown) (no (unknown) (unknown) Chief Complaint: (units (unknown) date) Wound/Laceration unknown) (unknown) (no (unknown) (unknown) Chloride (98-107) (units (unknown) date) mmol/L unknown) (unknown) (no (unknown) (unknown) Chloride 102 (units (u nknown) date) (98-107) mmol/L unknown) (unknown) (no (unknown) (unknown) 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 (unknown) (no (unknown) (unknown) Chronic (units (unkno wn) date) osteomyelitis unknown) involving multiple sites (unknown) (no (unknown) (unknown) Chronic skin (units (u nknown) date) ulcer unknown) (unknown) (no (unknown) (unknown) Clinical (units (unkno wn) date) Impression: unknown) (unknown) (no (unknown) (unknown) Consult to Home (units (unknown) date) Health Stat unknown) (unknown) (no (unknown) (unknown) 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 [employer] unknown) Stat (unknown) (no (unknown) (unknown) Contusion of left (units (unknown) date) lower leg, initial unknown) encounter (unknown) (no (unknown) (unknown) Course (units (unkno wn) date) unknown) (unknown) (no (unknown) (unknown) Creatinine (units (unk nown) date) (0.52-1.04) mg/dL unknown) (unknown) (no (unknown) (unknown) Creatinine 0.43 L (units (unknown) date) (0.52-1.04) mg/dL unknown) (unknown) (no (unknown) (unknown) Cutaneous abscess (units (unknown) date) of buttock unknown) (unknown) (no (unknown) (unknown) : 1955 (units (unknown) date) Acct:[id number] unknown) (unknown) (no (unknown) (unknown) : 1955 (units (unknown) date) unknown) (unknown) (no (unknown) (unknown) Date of Service: (units (unknown) date) 11/28/21 unknown) (unknown) (no (unknown) (unknown) Deep vein (units (unkn own) date) thrombosis unknown) (unknown) (no (unknown) (unknown) Departure (units (unkn own) date) unknown) (unknown) (no (unknown) (unknown) Dictated by: (units (u nknown) date) Elia Grant M.D. on unknown) 11/28/2021 at 11:08 ? ? (unknown) (no (unknown) (unknown) Discharge Plan (units (unknown) date) unknown) (unknown) (no (unknown) (unknown) Discontinued (units (u nknown) date) Medications unknown) (unknown) (no (unknown) (unknown) Dizziness (units (unkn own) date) unknown) (unknown) (no (unknown) (unknown) ER Physician: (units ( unknown) date) Anisa Burton unknown) D.O. (unknown) (no (unknown) (unknown) EXTREMITIES: (units (u nknown) date) Normal range of unknown) motion, no clubbing or edema. Neurovascularly (unknown) (no (unknown) (unknown) Eos # (Auto) (units (u nknown) date) (0-450) /uL unknown) (unknown) (no (unknown) (unknown) Eos # (Auto) 200 (units (unknown) date) (0-450) /uL unknown) (unknown) (no (unknown) (unknown) Eos % (Auto) (units (u nknown) date) (2-4) % unknown) (unknown) (no (unknown) (unknown) Eos % (Auto) 3.1 (units (unknown) date) (2-4) % unknown) (unknown) (no (unknown) (unknown) Estimated GFR (units ( unknown) date) (>60) mL/min unknown) (unknown) (no (unknown) (unknown) Estimated GFR > (units (unknown) date) 60 (>60) mL/min unknown) (unknown) (no (unknown) (unknown) Exam (units (unkno wn) date) unknown) (unknown) (no (unknown) (unknown) FINDINGS:? (units (unk nown) date) unknown) (unknown) (no (unknown) (unknown) Fall (units (unkno wn) date) unknown) (unknown) (no (unknown) (unknown) Family History (units (unknown) date) (Reviewed 11/20/21 unknown) @ 14:27 by CHRISTIAN Lee) (unknown) (no (unknown) (unknown) GASTROINTESTINAL: (units (unknown) date) Denies nausea, unknown) vomiting, abdominal pain, diarrhea, (unknown) (no (unknown) (unknown) GENERAL: Alert (units (unknown) date) chronically ill unknown) 66-year-old female appears uncomfortable and in (unknown) (no (unknown) (unknown) GENERAL: See HPI (units (unknown) date) unknown) (unknown) (no (unknown) (unknown) : Stephens (units (unkn own) date) catheter in place unknown) (unknown) (no (unknown) (unknown) : Denies (units (unkn own) date) dysuria, unknown) frequency, incontinence, hematuria, urinary retention, flank (unknown) (no (unknown) (unknown) General (units (unkno wn) date) unknown) (unknown) (no (unknown) (unknown) GenericComposite[ (units (unknown) date) Plt Count unknown) (150-400) X10^3/uL ] (unknown) (no (unknown) (unknown) GenericComposite[ (units (unknown) date) Plt Count 205 unknown) (150-400) X10^3/uL ] (unknown) (no (unknown) (unknown) GenericComposite[ (units (unknown) date) RBC (4.0-5.2) unknown) X10^6/uL ] (unknown) (no (unknown) (unknown) GenericComposite[ (units (unknown) date) RBC 4.05 (4.0-5.2) unknown) X10^6/uL ] (unknown) (no (unknown) (unknown) GenericComposite[ (units (unknown) date) WBC (4.5-11.0) unknown) X10^3/uL ] (unknown) (no (unknown) (unknown) GenericComposite[ (units (unknown) date) WBC 5.3 (4.5-11.0) unknown) X10^3/uL ] (unknown) (no (unknown) (unknown) Globulin (units (unkno wn) date) (1.7-4.1) g/dL unknown) (unknown) (no (unknown) (unknown) Globulin 3.9 (units (u nknown) date) (1.7-4.1) g/dL unknown) (unknown) (no (unknown) (unknown) Glucose (80-110) (units (unknown) date) mg/dL unknown) (unknown) (no (unknown) (unknown) Glucose 107 (units (un known) date) (80-110) mg/dL unknown) (unknown) (no (unknown) (unknown) Grandfather (units (un known) date) Cancer unknown) (unknown) (no (unknown) (unknown) HEENT: Denies (units ( unknown) date) sinus pain, ear unknown) pain, sore throat, difficulty swallowing, neck (unknown) (no (unknown) (unknown) HEENT: Head (units (un known) date) atraumatic,EOMI, unknown) pupils reactive, face symmetric, moist mucous (unknown) (no (unknown) (unknown) HPI - (units (unkno wn) date) Wound/Laceration unknown) (unknown) (no (unknown) (unknown) HPI narrative: (units (unknown) date) unknown) (unknown) (no (unknown) (unknown) Hct (36-46) % (units ( unknown) date) unknown) (unknown) (no (unknown) (unknown) Hct 36.9 (36-46) (units (unknown) date) % unknown) (unknown) (no (unknown) (unknown) Hematoma of left (units (unknown) date) lower extremity unknown) (unknown) (no (unknown) (unknown) Hemiparesis (units (un known) date) unknown) (unknown) (no (unknown) (unknown) Hepatitis C (units (un known) date) (-1978) unknown) (unknown) (no (unknown) (unknown) Hgb (12.0-16.0) (units (unknown) date) g/dL unknown) (unknown) (no (unknown) (unknown) Hgb 12.4 (units (unkno wn) date) (12.0-16.0) g/dL unknown) (unknown) (no (unknown) (unknown) History of (units (unk nown) date) Present Illness unknown) (unknown) (no (unknown) (unknown) Neo Pritchard MD (units (unknown) date) [Primary Care unknown) Provider] - (unknown) (no (unknown) (unknown) Hospital, CR, XR (units (unknown) date) CHEST FOR PICC 1V, unknown) 01/16/2019, 12:09. (unknown) (no (unknown) (unknown) IMPRESSION:? (units (u nknown) date) Stable unknown) radiographic evaluation of the chest without acute (unknown) (no (unknown) (unknown) INDICATIONS:? (units ( unknown) date) fever unknown) (unknown) (no (unknown) (unknown) Imaging Data (units (u nknown) date) unknown) (unknown) (no (unknown) (unknown) Initial Vital (units ( unknown) date) Signs unknown) (unknown) (no (unknown) (unknown) Initial Vital (units ( unknown) date) Signs: unknown) (unknown) (no (unknown) (unknown) Instructions: DI (units (unknown) date) for Urinary Tract unknown) Infection (UTI) (unknown) (no (unknown) (unknown) [place] (units (unkno wn) date) unknown) (unknown) (no (unknown) (unknown) Lab Data (units (unkno wn) date) unknown) (unknown) (no (unknown) (unknown) Labs: (units (unkno wn) date) unknown) (unknown) (no (unknown) (unknown) Lactate (0.7-2.1) (units (unknown) date) mmol/L unknown) (unknown) (no (unknown) (unknown) Lactate 0.8 (units (un known) date) (0.7-2.1) mmol/L unknown) (unknown) (no (unknown) (unknown) Left leg (units (unkno wn) date) cellulitis unknown) (unknown) (no (unknown) (unknown) Loc: ED (units (unkno wn) date) unknown) (unknown) (no (unknown) (unknown) Lungs and (units (unkn own) date) pleura:? Lungs are unknown) clear.? No pleural effusions or pneumothorax.? (unknown) (no (unknown) (unknown) Lymph # (Auto) (units (unknown) date) (1482-1884) /uL unknown) (unknown) (no (unknown) (unknown) Lymph # (Auto) (units (unknown) date) 1600 (0935-7374) unknown) /uL (unknown) (no (unknown) (unknown) Lymph % (Auto) (units (unknown) date) (25-40) % unknown) (unknown) (no (unknown) (unknown) Lymph % (Auto) (units (unknown) date) 30.0 (25-40) % unknown) (unknown) (no (unknown) (unknown) MCH (26-34) PG (units (unknown) date) unknown) (unknown) (no (unknown) (unknown) MCH 30.6 (26-34) (units (unknown) date) PG unknown) (unknown) (no (unknown) (unknown) MCHC (30-36) % (units (unknown) date) unknown) (unknown) (no (unknown) (unknown) MCHC 33.6 (30-36) (units (unknown) date) % unknown) (unknown) (no (unknown) (unknown) MCV (80-100) fL (units (unknown) date) unknown) (unknown) (no (unknown) (unknown) MCV 91.1 (80-100) (units (unknown) date) fL unknown) (unknown) (no (unknown) (unknown) MDM - (units (unkno wn) date) Wound/Laceration unknown) (unknown) (no (unknown) (unknown) MDM Narrative (units ( unknown) date) unknown) (unknown) (no (unknown) (unknown) MR#: [id number] (units (unknown) date) unknown) (unknown) (no (unknown) (unknown) MUSCULOSKELETAL: (units (unknown) date) Denies weakness, unknown) joint pain, or bony pain (unknown) (no (unknown) (unknown) Measles (units (unkno wn) date) unknown) (unknown) (no (unknown) (unknown) Mediastinum:? (units ( unknown) date) Mediastinal unknown) contours appear normal.? Heart size is normal.? (unknown) (no (unknown) (unknown) Medical History (units (unknown) date) (Updated 11/28/21 unknown) @ 13:41 by Anisa Burton DO) (unknown) (no (unknown) (unknown) Medical decision (units (unknown) date) making narrative: unknown) (unknown) (no (unknown) (unknown) Mode of arrival: (units (unknown) date) EMS unknown) (unknown) (no (unknown) (unknown) Jerome # (Auto) (units ( unknown) date) (0-900) /uL unknown) (unknown) (no (unknown) (unknown) Jerome # (Auto) 400 (units (unknown) date) (0-900) /uL unknown) (unknown) (no (unknown) (unknown) Jerome % (Auto) (units ( unknown) date) (3-14) % unknown) (unknown) (no (unknown) (unknown) Jerome % (Auto) 7.9 (units (unknown) date) (3-14) % unknown) (unknown) (no (unknown) (unknown) 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) (unknown) (no (unknown) (unknown) Morphine Sulfate (units (unknown) date) (Morphine 2 Mg/Ml unknown) Inj) 2 mg IV NOW ONE (unknown) (no (unknown) (unknown) Multiple falls (units (unknown) date) unknown) (unknown) (no (unknown) (unknown) NEUROLOGIC: (units (un known) date) Denies weakness, unknown) dizziness, headache, numbness, change in speech, (unknown) (no (unknown) (unknown) NEUROLOGICAL: (units ( unknown) date) Alert and oriented unknown) x4.N (unknown) (no (unknown) (unknown) Narrative: (units (unk nown) date) unknown) (unknown) (no (unknown) (unknown) Neut # (Auto) (units ( unknown) date) (8496-9265) /uL unknown) (unknown) (no (unknown) (unknown) Neut # (Auto) (units ( unknown) date) 3100 (4264-1325) unknown) /uL (unknown) (no (unknown) (unknown) Neut % (Auto) (units ( unknown) date) (50-75) % unknown) (unknown) (no (unknown) (unknown) Neut % (Auto) (units ( unknown) date) 58.3 (50-75) % unknown) (unknown) (no (unknown) (unknown) New (units (unkno wn) date) unknown) (unknown) (no (unknown) (unknown) No Action (units (unkn own) date) unknown) (unknown) (no (unknown) (unknown) [place] 1 tab every (units (unknown) date) 6 hours if needed unknown) for pain (unknown) (no (unknown) (unknown) Ordered: (units (unkno wn) date) unknown) (unknown) (no (unknown) (unknown) Ordering (units (unkno wn) date) Provider: unknown) Anisa Burton D.O. (unknown) (no (unknown) (unknown) Orders (units (unkno wn) date) unknown) (unknown) (no (unknown) (unknown) Oxygen Delivery (units (unknown) date) Method 11/28/21 unknown) 07:16 (unknown) (no (unknown) (unknown) PICC (units (unkno wn) date) (peripherally unknown) inserted central catheter) in place (unknown) (no (unknown) (unknown) PROCEDURE:? XR (units (unknown) date) CHEST 1V unknown) (unknown) (no (unknown) (unknown) PSYCHIATRIC: No (units (unknown) date) concerning unknown) psychosocial issues. (unknown) (no (unknown) (unknown) Paraplegia (units (unk nown) date) (02/14/16) unknown) (unknown) (no (unknown) (unknown) Paraplegic spinal (units (unknown) date) paralysis unknown) (unknown) (no (unknown) (unknown) Patient (units (unkno wn) date) Disposition: Home unknown) (unknown) (no (unknown) (unknown) Patient History (units (unknown) date) unknown) (unknown) (no (unknown) (unknown) Patient does have (units (unknown) date) some friends to unknown) help her at but she needs more assistance than (unknown) (no (unknown) (unknown) Patient is a (units (u nknown) date) 66-year-old female unknown) history of paraplegia chronic Stephens catheter (unknown) (no (unknown) (unknown) Patient is is (units ( unknown) date) chronically unknown) bed-bound she has chronic wounds which do seem to be (unknown) (no (unknown) (unknown) Patient: (units (unkno wn) date) Karina Diallo MR#: unknown) [id number] (unknown) (no (unknown) (unknown) Patient: (units (unkno wn) date) Karina Diallo unknown) (unknown) (no (unknown) (unknown) Penicillins (units (un known) date) Allergy Unknown unknown) Verified 11/28/21 07:23 (unknown) (no (unknown) (unknown) Post-op bleeding (units (unknown) date) unknown) (unknown) (no (unknown) (unknown) Potassium (units (unkn own) date) (3.4-5.1) mmol/L unknown) (unknown) (no (unknown) (unknown) Potassium 3.5 (units (unknown) date) (3.4-5.1) mmol/L unknown) (unknown) (no (unknown) (unknown) Prescriptions: (units (unknown) date) unknown) (unknown) (no (unknown) (unknown) Pressure ulcer of (units (unknown) date) contiguous site of unknown) back, buttock and hip, stage 2 (unknown) (no (unknown) (unknown) Pressure ulcer of (units (unknown) date) left thigh unknown) (unknown) (no (unknown) (unknown) Procalcitonin (units ( unknown) date) (<0.5) ng/mL unknown) (unknown) (no (unknown) (unknown) Procalcitonin (units ( unknown) date) 0.07 (<0.5) ng/mL unknown) (unknown) (no (unknown) (unknown) Procedure: XR (units ( unknown) date) chest 1V unknown) (unknown) (no (unknown) (unknown) Pulse Oximetry (units (unknown) date) 100 11/28/21 07:16 unknown) (unknown) (no (unknown) (unknown) Pulse Oximetry 96 (units (unknown) date) unknown) (unknown) (no (unknown) (unknown) Pulse Oximetry 99 (units (unknown) date) unknown) (unknown) (no (unknown) (unknown) Pulse Oximetry 97 (units (unknown) date) 99 unknown) (unknown) (no (unknown) (unknown) Pulse Oximetry 99 (units (unknown) date) unknown) (unknown) (no (unknown) (unknown) Pulse Oximetry 99 (units (unknown) date) 98 unknown) (unknown) (no (unknown) (unknown) Pulse Rate 83 (units ( unknown) date) unknown) (unknown) (no (unknown) (unknown) Pulse Rate 92 H (units (unknown) date) unknown) (unknown) (no (unknown) (unknown) Pulse Rate 95 H (units (unknown) date) 11/28/21 07:16 unknown) (unknown) (no (unknown) (unknown) Pulse Rate 85 84 (units (unknown) date) unknown) (unknown) (no (unknown) (unknown) Pulse Rate 88 98 (units (unknown) date) H unknown) (unknown) (no (unknown) (unknown) Pulse Rate 89 (units ( unknown) date) unknown) (unknown) (no (unknown) (unknown) RDW (11.6-14.8) % (units (unknown) date) unknown) (unknown) (no (unknown) (unknown) RDW 13.9 (units (unkno wn) date) (11.6-14.8) % unknown) (unknown) (no (unknown) (unknown) RESPIRATORY: (units (u nknown) date) Breath sounds unknown) equal bilaterally, no wheezes rales or rhonchi. (unknown) (no (unknown) (unknown) RESPIRATORY: (units (u nknown) date) Denies dyspnea, unknown) cough, wheezing, hemoptysis, sputum. (unknown) (no (unknown) (unknown) Referrals: (units (unk nown) date) unknown) (unknown) (no (unknown) (unknown) Related Data (units (u nknown) date) unknown) (unknown) (no (unknown) (unknown) Respiratory Rate (units (unknown) date) unknown) (unknown) (no (unknown) (unknown) Respiratory Rate (units (unknown) date) 18 unknown) (unknown) (no (unknown) (unknown) Respiratory Rate (units (unknown) date) 18 unknown) (unknown) (no (unknown) (unknown) Respiratory Rate (units (unknown) date) 11/28/21 07:16 unknown) (unknown) (no (unknown) (unknown) Respiratory Rate (units (unknown) date) 18 unknown) (unknown) (no (unknown) (unknown) Result diagrams: (units (unknown) date) unknown) (unknown) (no (unknown) (unknown) Retention of (units (u nknown) date) urine, unspecified unknown) (unknown) (no (unknown) (unknown) Review of Systems (units (unknown) date) unknown) (unknown) (no (unknown) (unknown) SARS-CoV-2 (PCR) (units (unknown) date) (Negative) unknown) (unknown) (no (unknown) (unknown) SARS-CoV-2 (PCR) (units (unknown) date) Negative unknown) (Negative) (unknown) (no (unknown) (unknown) SKIN: Chronic (units (u nknown) date) wound on buttocks, unknown) no gross drainage more wound on the right side (unknown) (no (unknown) (unknown) SKIN: No rash, no (units (unknown) date) erythema, no unknown) pruritus (unknown) (no (unknown) (unknown) Seasonal (units (unkno wn) date) allergies unknown) (unknown) (no (unknown) (unknown) Signed By: (units (unk nown) date) unknown) (unknown) (no (unknown) (unknown) Sister Mental (units ( unknown) date) health problem unknown) (unknown) (no (unknown) (unknown) Skin ulcer of (units ( unknown) date) ankle unknown) (unknown) (no (unknown) (unknown) Smoking Status: (units (unknown) date) Current some day unknown) smoker (unknown) (no (unknown) (unknown) Smoking Status: (units (unknown) date) Current some day unknown) smoker (unknown) (no (unknown) (unknown) Social History (units (unknown) date) (Reviewed 11/18/21 unknown) @ 05:16 by Noah Jessica DO) (unknown) (no (unknown) (unknown) Sodium (137-145) (units (unknown) date) mmol/L unknown) (unknown) (no (unknown) (unknown) Sodium 141 (units (unk nown) date) (137-145) mmol/L unknown) (unknown) (no (unknown) (unknown) Source: EMS (units (un known) date) unknown) (unknown) (no (unknown) (unknown) Stated Complaint: (units (unknown) date) Bed sores unknown) (unknown) (no (unknown) (unknown) Substance Use (units ( unknown) date) Type: marijuana unknown) (unknown) (no (unknown) (unknown) Surgical changes (units (unknown) date) and devices:? unknown) Partially imaged thoracolumbar spinal fusion (unknown) (no (unknown) (unknown) TECHNIQUE:? One (units (unknown) date) view of the chest unknown) was acquired.? (unknown) (no (unknown) (unknown) Temperature 97.9 (units (unknown) date) F 11/28/21 07:16 unknown) (unknown) (no (unknown) (unknown) Time Seen by (units (u nknown) date) Provider: 11/28/21 unknown) 07:55 (unknown) (no (unknown) (unknown) Toe laceration (units (unknown) date) unknown) (unknown) (no (unknown) (unknown) Total Bilirubin (units (unknown) date) (0.2-1.3) mg/dL unknown) (unknown) (no (unknown) (unknown) Total Bilirubin (units (unknown) date) 0.6 (0.2-1.3) unknown) mg/dL (unknown) (no (unknown) (unknown) Total Protein (units ( unknown) date) (6.3-8.2) g/dL unknown) (unknown) (no (unknown) (unknown) Total Protein 8.3 (units (unknown) date) H (6.3-8.2) g/dL unknown) (unknown) (no (unknown) (unknown) Triple Phos (units (un known) date) Crystals unknown) (unknown) (no (unknown) (unknown) Triple Phos (units (un known) date) Crystals unknown) Occasional (unknown) (no (unknown) (unknown) UTI (urinary (units (u nknown) date) tract infection) unknown) (unknown) (no (unknown) (unknown) UTI (urinary (units (u nknown) date) tract infection) unknown) due to Enterococcus (unknown) (no (unknown) (unknown) Ur Culture (units (unk nown) date) Indicated? unknown) (unknown) (no (unknown) (unknown) Ur Culture (units (unk nown) date) Indicated? unknown) Specimen cultured (unknown) (no (unknown) (unknown) Ur Leukocyte (units (u nknown) date) Esterase unknown) (NEGATIVE) (unknown) (no (unknown) (unknown) Ur Leukocyte (units (u nknown) date) Esterase 3+ H unknown) (NEGATIVE) (unknown) (no (unknown) (unknown) Ur Specific (units (un known) date) Duarte unknown) (1.000-1.035) (unknown) (no (unknown) (unknown) Ur Specific (units (un known) date) Duarte 1.010 unknown) (1.000-1.035) (unknown) (no (unknown) (unknown) Ur Squamous Epith (units (unknown) date) Cells (0-5/HPF) unknown) (unknown) (no (unknown) (unknown) Ur Squamous Epith (units (unknown) date) Cells 1-5 /hpf unknown) (0-5/HPF) (unknown) (no (unknown) (unknown) Urine Appearance (units (unknown) date) unknown) (unknown) (no (unknown) (unknown) Urine Appearance (units (unknown) date) Clear unknown) (unknown) (no (unknown) (unknown) Urine Bacteria (units (unknown) date) (None) unknown) (unknown) (no (unknown) (unknown) Urine Bacteria (units (unknown) date) Many (>30) H unknown) (None) (unknown) (no (unknown) (unknown) Urine Bilirubin (units (unknown) date) (NEGATIVE) unknown) (unknown) (no (unknown) (unknown) Urine Bilirubin (units (unknown) date) Negative unknown) (NEGATIVE) (unknown) (no (unknown) (unknown) Urine Color (units (un known) date) unknown) (unknown) (no (unknown) (unknown) Urine Color (units (un known) date) Yellow unknown) (unknown) (no (unknown) (unknown) Urine Glucose (units ( unknown) date) (UA) (Negative) unknown) g/dL (unknown) (no (unknown) (unknown) Urine Glucose (units ( unknown) date) (UA) Negative unknown) (Negative) g/dL (unknown) (no (unknown) (unknown) Urine Ketones (units ( unknown) date) (NEGATIVE) unknown) (unknown) (no (unknown) (unknown) Urine Ketones (units ( unknown) date) Negative unknown) (NEGATIVE) (unknown) (no (unknown) (unknown) Urine Nitrate (units ( unknown) date) (Negative) unknown) (unknown) (no (unknown) (unknown) Urine Nitrate (units ( unknown) date) Positive H unknown) (Negative) (unknown) (no (unknown) (unknown) Urine Occult (units (u nknown) date) Blood (Negative) unknown) (unknown) (no (unknown) (unknown) Urine Occult (units (u nknown) date) Blood 3+ H unknown) (Negative) (unknown) (no (unknown) (unknown) Urine Protein (units ( unknown) date) (Negative) unknown) (unknown) (no (unknown) (unknown) Urine Protein 2+ (units (unknown) date) H (Negative) unknown) (unknown) (no (unknown) (unknown) Urine RBC (units (unkn own) date) (0-5/HPF) unknown) (unknown) (no (unknown) (unknown) Urine RBC 1-5/hpf (units (unknown) date) D (0-5/HPF) unknown) (unknown) (no (unknown) (unknown) Urine (units (unkno wn) date) Urobilinogen (0.2) unknown) E.U./dL (unknown) (no (unknown) (unknown) Urine (units (unkno wn) date) Urobilinogen 0.2 unknown) (0.2) E.U./dL (unknown) (no (unknown) (unknown) Urine WBC (units (unkn own) date) (0-5/HPF) unknown) (unknown) (no (unknown) (unknown) Urine WBC 1-5/hpf (units (unknown) date) (0-5/HPF) unknown) (unknown) (no (unknown) (unknown) Urine pH (units (unkno wn) date) (4.5-8.0) unknown) (unknown) (no (unknown) (unknown) Urine pH 8.0 (units (u nknown) date) (4.5-8.0) unknown) (unknown) (no (unknown) (unknown) Visit Report (units (u nknown) date) Forms: Patient unknown) Portal/API (unknown) (no (unknown) (unknown) Vital Signs (units (un known) date) unknown) (unknown) (no (unknown) (unknown) Vital signs: (units (u nknown) date) unknown) (unknown) (no (unknown) (unknown) Wound of sacral (units (unknown) date) region, subsequent unknown) encounter (08/29/15) (unknown) (no (unknown) (unknown) [Embedded Image (units (unknown) date) Not Available] unknown) (unknown) (no (unknown) (unknown) abnormalities or (units (unknown) date) focal airspace unknown) disease. (unknown) (no (unknown) (unknown) admission (units (unkn own) date) criteria. unknown) (unknown) (no (unknown) (unknown) alcohol intake (units (unknown) date) frequency: unknown) holidays/special occasions only (unknown) (no (unknown) (unknown) alcohol intake: (units (unknown) date) never unknown) (unknown) (no (unknown) (unknown) appear (units (unkno wn) date) unknown) (unknown) (no (unknown) (unknown) area. He says (units ( unknown) date) these are also unknown) painful. She denies any cough chest pain (unknown) (no (unknown) (unknown) cardiopulmonary (units (unknown) date) unknown) (unknown) (no (unknown) (unknown) cefpodoxime 200 (units (unknown) date) mg tablet 200 mg unknown) PO Q12H #14 tabs 11/28/21 (unknown) (no (unknown) (unknown) chlorhexidine (units ( unknown) date) Allergy Mild unknown) ITCHING Verified 11/28/21 07:23 (unknown) (no (unknown) (unknown) confusion (units (unkn own) date) unknown) (unknown) (no (unknown) (unknown) constipation, (units ( unknown) date) melena. unknown) (unknown) (no (unknown) (unknown) ertapenem Allergy (units (unknown) date) Severe SEIZURES unknown) Verified 11/28/21 07:23 (unknown) (no (unknown) (unknown) guarding or (units (un known) date) rebound. unknown) (unknown) (no (unknown) (unknown) hardware is (units (un known) date) unknown) (unknown) (no (unknown) (unknown) household (units (unkn own) date) members: none unknown) (unknown) (no (unknown) (unknown) hydrocodone 5 (units ( unknown) date) mg-acetaminophen unknown) 325 1 tab PO Q6H PRN pain #10 tabs 11/28/21 (unknown) (no (unknown) (unknown) incompletely (units (u nknown) date) visualized.? No unknown) evidence for hardware complication. (unknown) (no (unknown) (unknown) increased (units (unkn own) date) shoulder pain. She unknown) has multiple wounds on her feet and peritoneal (unknown) (no (unknown) (unknown) intact (units (unkno wn) date) unknown) (unknown) (no (unknown) (unknown) kinked catheter. (units (unknown) date) She returns today unknown) she said that she was freezing cold this (unknown) (no (unknown) (unknown) lactose AdvReac (units (unknown) date) Unknown Verified unknown) 11/28/21 07:23 (unknown) (no (unknown) (unknown) levothyroxine 50 (units (unknown) date) mcg tablet 50 mcg unknown) PO DAILY #30 tabs 10/12/19 (unknown) (no (unknown) (unknown) linezolid (units (unkn own) date) [LINEZOLID] unknown) Allergy Mild Verified 11/28/21 07:23 (unknown) (no (unknown) (unknown) membranes (units (unkn own) date) unknown) (unknown) (no (unknown) (unknown) metronidazole 500 (units (unknown) date) mg tablet 500 mg unknown) .Route .COMPLEX 03/17/20 (unknown) (no (unknown) (unknown) mg tablet (units (unkn own) date) unknown) (unknown) (no (unknown) (unknown) morning she took (units (unknown) date) some Tylenol and unknown) got very hot. She did not take her (unknown) (no (unknown) (unknown) no acute (units (unkno wn) date) distress. unknown) (unknown) (no (unknown) (unknown) now. Wounds do (units (unknown) date) not seem to be unknown) acutely infected. She does have nitrates and (unknown) (no (unknown) (unknown) oxybutynin (units (unk nown) date) chloride 5 mg unknown) tablet 10 mg PO TID 03/17/20 (unknown) (no (unknown) (unknown) pain (units (unkno wn) date) unknown) (unknown) (no (unknown) (unknown) placement chronic (units (unknown) date) wounds presenting unknown) today with fever weakness and pain. She was (unknown) (no (unknown) (unknown) seem to be (units (unk nown) date) sensitive to 3rd unknown) and 4th generation cephalosporins. She is not (unknown) (no (unknown) (unknown) seen and (units (unkno wn) date) evaluated last unknown) week she had some diarrhea at that time found to have (unknown) (no (unknown) (unknown) sennosides 8.6 mg (units (unknown) date) tablet (senna) unknown) 17.2 mg PO BEDTIME #60 tabs 03/17/20 (unknown) (no (unknown) (unknown) septic at this (units (unknown) date) time. Social Work unknown) has been in to see and evaluate patient and (unknown) (no (unknown) (unknown) she will go home (units (unknown) date) with home health unknown) care referral. (unknown) (no (unknown) (unknown) shortness of (units (u nknown) date) breath abdominal unknown) pain. (unknown) (no (unknown) (unknown) signs of a UTI. (units (unknown) date) Previous culture unknown) does show multiple drug resistance but does (unknown) (no (unknown) (unknown) taking (units (unkno wn) date) antibiotics should unknown) help you feel better (unknown) (no (unknown) (unknown) temperature but (units (unknown) date) feels like this unknown) might be a fever. She has body aches she has (unknown) (no (unknown) (unknown) unremarkable.? (units (unknown) date) unknown) (unknown) (no (unknown) (unknown) worse she does not (units (unknown) date) have enough help unknown) at home. Her friend has been taking care of (unknown) (no (unknown) (unknown) worsening or (units (u nknown) date) concerning unknown) symptoms Result panel 26 (unknown) (no date) (unknown) (unknown) (no value) (units (un known) unknown) (unknown) (no date) (unknown) (unknown) Very Early (units (un known) Growth: Culture unknown) too young for work-up reincubated Result panel 27 (unknown) (no date) (unknown) (unknown) (no value) (units (un known) unknown) (unknown) (no date) (unknown) (unknown) NO GROWTH (units (unk nown) AFTER 24 unknown) HOURS Result panel 28 (unknown) (no date) (unknown) (unknown) (no value) (units (un known) unknown) (unknown) (no date) (unknown) (unknown) NO GROWTH (units (unk nown) AFTER 24 unknown) HOURS Result panel 29 (unknown) (no (unknown) (unknown) (no value) (units (unk nown) date) unknown) (unknown) (no (unknown) (unknown) >100,000 CFU/ml (unkno wn) date) (unknown) (no (unknown) (unknown) GenericComposite (units (unknown) date) [GNB^Gram unknown) negative bacilli] (unknown) (no (unknown) (unknown) Identification (units (unknown) date) and Sensitivity unknown) to Follow Result panel 30 (unknown) (no date) (unknown) (unknown) NO GROWTH (units (unk nown) AFTER 48 unknown) HOURS (unknown) (no date) (unknown) (unknown) (no value) (units (un known) unknown) Result panel 31 (unknown) (no date) (unknown) (unknown) NO GROWTH (units (unk nown) AFTER 48 unknown) HOURS (unknown) (no date) (unknown) (unknown) (no value) (units (un known) unknown) Result panel 32 (unknown) (no date) (unknown) (unknown) (no value) (units (un known) unknown) (unknown) (no date) (unknown) (unknown) (no value) (units (un known) unknown) (unknown) (no date) (unknown) (unknown) >100,000 CFU/ml (unkn own) (unknown) (no date) (unknown) (unknown) >=8 (units (unkn own) unknown) (unknown) (no date) (unknown) (unknown) <=0.25 (units (unkn own) unknown) (unknown) (no date) (unknown) (unknown) <=0.5 (units (unkn own) unknown) (unknown) (no date) (unknown) (unknown) <=1 (units (unkn own) unknown) (unknown) (no date) (unknown) (unknown) <=2 (units (unkn own) unknown) (unknown) (no date) (unknown) (unknown) <=20 (units (unkn own) unknown) (unknown) (no date) (unknown) (unknown) <=4 (units (unkn own) unknown) (unknown) (no date) (unknown) (unknown) 0.5 (units (unkn own) unknown) (unknown) (no date) (unknown) (unknown) 128 (units (unkn own) unknown) (unknown) (no date) (unknown) (unknown) 2 (units (unkn own) unknown) (unknown) (no date) (unknown) (unknown) 4 (units (unkn own) unknown) (unknown) (no date) (unknown) (unknown) 64 (units (unkn own) unknown) (unknown) (no date) (unknown) (unknown) GenericCompo (units ( unknown) site[PRORET^P unknown) rovidencia rettgeri] (unknown) (no date) (unknown) (unknown) GenericCompo (units ( unknown) site[PSEAER^P unknown) seudomonas aeruginosa] (unknown) (no date) (unknown) (unknown) No Further (units (un known) Workup unknown) Result panel 33 (unknown) (no date) (unknown) (unknown) (no value) (units (un known) unknown) (unknown) (no date) (unknown) (unknown) NO GROWTH (units (unk nown) AFTER 72 unknown) HOURS Result panel 34 (unknown) (no date) (unknown) (unknown) (no value) (units (un known) unknown) (unknown) (no date) (unknown) (unknown) NO GROWTH (units (unk nown) AFTER 72 unknown) HOURS Result panel 35 (unknown) (no date) (unknown) (unknown) (no value) (units (un known) unknown) (unknown) (no date) (unknown) (unknown) NO GROWTH (units (unk nown) AFTER 4 DAYS unknown) Result panel 36 (unknown) (no date) (unknown) (unknown) (no value) (units (un known) unknown) (unknown) (no date) (unknown) (unknown) NO GROWTH (units (unk nown) AFTER 4 DAYS unknown) Result panel 37 (unknown) (no date) (unknown) (unknown) (no value) (units (un known) unknown) (unknown) (no date) (unknown) (unknown) NO GROWTH (units (unk nown) AFTER 5 DAYS unknown) Result panel 38 (unknown) (no date) (unknown) (unknown) (no value) (units (un known) unknown) (unknown) (no date) (unknown) (unknown) NO GROWTH (units (unk nown) AFTER 5 DAYS unknown) Result panel 39 (unknown) (no date) (unknown) (unknown) Negative (units (unkn own) unknown) Result panel 40 (unknown) (no date) (unknown) (unknown) 0 /uL (unkn own) (unknown) (no date) (unknown) (unknown) 0 /uL (unkn own) (unknown) (no date) (unknown) (unknown) 0.1 % (unkn own) (unknown) (no date) (unknown) (unknown) 0.2 % (unkn own) (unknown) (no date) (unknown) (unknown) 12.5 g/dL (unkn own) (unknown) (no date) (unknown) (unknown) 13.6 % (unkn own) (unknown) (no date) (unknown) (unknown) 1400 /uL (unkn own) (unknown) (no date) (unknown) (unknown) 17.4 % (unkn own) (unknown) (no date) (unknown) (unknown) 214 X10 3/uL (unkn own) (unknown) (no date) (unknown) (unknown) 31.1 PG (unkn own) (unknown) (no date) (unknown) (unknown) 33.8 % (unkn own) (unknown) (no date) (unknown) (unknown) 36.9 % (unkn own) (unknown) (no date) (unknown) (unknown) 4.01 X10 6/uL (unkn own) (unknown) (no date) (unknown) (unknown) 6.9 % (unkn own) (unknown) (no date) (unknown) (unknown) 600 /uL (unkn own) (unknown) (no date) (unknown) (unknown) 6100 /uL (unkn own) (unknown) (no date) (unknown) (unknown) 75.4 % (unkn own) (unknown) (no date) (unknown) (unknown) 8.1 X10 3/uL (unkn own) (unknown) (no date) (unknown) (unknown) 91.9 fL (unkn own) Result panel 41 (unknown) (no date) (unknown) (unknown) > 60 mL/min (unkn own) (unknown) (no date) (unknown) (unknown) 0.4 mg/dL (unkn own) (unknown) (no date) (unknown) (unknown) 0.47 mg/dL (unkn own) (unknown) (no date) (unknown) (unknown) 1.0 (units unknown) (unknown) (unknown) (no date) (unknown) (unknown) 1.1 mmol/L (unkn own) (unknown) (no date) (unknown) (unknown) 105 mmol/L (unkn own) (unknown) (no date) (unknown) (unknown) 108 U/L (unkn own) (unknown) (no date) (unknown) (unknown) 12 mg/dL (unkn own) (unknown) (no date) (unknown) (unknown) 141 mmol/L (unkn own) (unknown) (no date) (unknown) (unknown) 25.5 (units unknown) (unknown) (unknown) (no date) (unknown) (unknown) 3.9 mmol/L (unkn own) (unknown) (no date) (unknown) (unknown) 32 mmol/L (unkn own) (unknown) (no date) (unknown) (unknown) 4.2 g/dL (unkn own) (unknown) (no date) (unknown) (unknown) 4.4 g/dL (unkn own) (unknown) (no date) (unknown) (unknown) 44 IU/L (unkn own) (unknown) (no date) (unknown) (unknown) 68 IU/L (unkn own) (unknown) (no date) (unknown) (unknown) 8.6 g/dL (unkn own) (unknown) (no date) (unknown) (unknown) 9.1 mg/dL (unkn own) (unknown) (no date) (unknown) (unknown) 90 mg/dL (unkn own) Result panel 42 (unknown) (no (unknown) (unknown) (no value) (units (unk nown) date) unknown) (unknown) (no (unknown) (unknown) Date of Service: (units (unknown) date) 12/07/21 unknown) (unknown) (no (unknown) (unknown) (no value) (units (unk nown) date) unknown) (unknown) (no (unknown) (unknown) 12/07/21 17:26 (units (unknown) date) unknown) (unknown) (no (unknown) (unknown) 1 tab PO Q6H PRN (units (unknown) date) (Reason: pain) unknown) Qty: 10 0RF (unknown) (no (unknown) (unknown) 10 mg PO TID (units (u nknown) date) unknown) (unknown) (no (unknown) (unknown) 17.2 mg PO (units (unk nown) date) BEDTIME Qty: 60 unknown) 5RF (unknown) (no (unknown) (unknown) 200 mg PO Q12H (units (unknown) date) Qty: 14 0RF unknown) (unknown) (no (unknown) (unknown) 50 mcg PO DAILY (units (unknown) date) Qty: 30 5RF unknown) (unknown) (no (unknown) (unknown) 500 mg .ROUTE (units ( unknown) date) .COMPLEX unknown) (unknown) (no (unknown) (unknown) 500 mg crush and (units (unknown) date) apply topically unknown) to wound twice weekly; (unknown) (no (unknown) (unknown) Allergies (units (unkn own) date) unknown) (unknown) (no (unknown) (unknown) Diabetes (units (unkno wn) date) mellitus unknown) (unknown) (no (unknown) (unknown) ED Orders (units (unkn own) date) unknown) (unknown) (no (unknown) (unknown) Emergency Report (units (unknown) date) unknown) (unknown) (no (unknown) (unknown) Home Medications (units (unknown) date) unknown) (unknown) (no (unknown) (unknown) [facility] (units (unknown) date) [address] unknown) [place] [address] (unknown) (no (unknown) (unknown) Lab Results (units (un known) date) unknown) (unknown) (no (unknown) (unknown) Previous Rx's (units ( unknown) date) unknown) (unknown) (no (unknown) (unknown) Rx Instructions: (units (unknown) date) unknown) (unknown) (no (unknown) (unknown) Vital Signs - 8 (units (unknown) date) hr unknown) (unknown) (no (unknown) (unknown) must administer (units (unknown) date) with a meal/food unknown) (unknown) (no (unknown) (unknown) (no value) (units (unk nown) date) unknown) (unknown) (no (unknown) (unknown) 12/07/21 (units (unkno wn) date) 12/07/21 12/07/21 unknown) Range/Units (unknown) (no (unknown) (unknown) 12/07/21 (units (unkno wn) date) Range/Units unknown) (unknown) (no (unknown) (unknown) 17:07 17:26 (units (un known) date) 17:26 unknown) (unknown) (no (unknown) (unknown) 17:26 (units (unkno wn) date) unknown) (unknown) (no (unknown) (unknown) cefpodoxime 200 (units (unknown) date) mg tablet unknown) (unknown) (no (unknown) (unknown) hydrocodone-acet (units (unknown) date) aminophen 5-325 unknown) mg tablet (unknown) (no (unknown) (unknown) levothyroxine (units ( unknown) date) [Synthroid] 50 unknown) mcg tablet (unknown) (no (unknown) (unknown) metronidazole (units ( unknown) date) 500 mg tablet unknown) (unknown) (no (unknown) (unknown) oxybutynin (units (unk nown) date) chloride 5 mg unknown) tablet (unknown) (no (unknown) (unknown) sennosides (units (unk nown) date) [senna] 8.6 mg unknown) tablet (unknown) (no (unknown) (unknown) 12/07/21 (units (unkno wn) date) unknown) (unknown) (no (unknown) (unknown) Medication (units (unk nown) date) Instructions unknown) Recorded (unknown) (no (unknown) (unknown) Medication (units (unk nown) date) Instructions unknown) Recorded Confirmed (unknown) (no (unknown) (unknown) (Synthroid) (units (un known) date) unknown) (unknown) (no (unknown) (unknown) 12/07/21 17:07 (units (unknown) date) unknown) (unknown) (no (unknown) (unknown) 12/07/21 17:26 (units (unknown) date) unknown) (unknown) (no (unknown) (unknown) 12/07/21 18:27 (units (unknown) date) unknown) (unknown) (no (unknown) (unknown) 12/07/21 19:40 (units (unknown) date) unknown) (unknown) (no (unknown) (unknown) 0807 (units (unkno wn) date) unknown) (unknown) (no (unknown) (unknown) 16:32 (units (unkno wn) date) unknown) (unknown) (no (unknown) (unknown) AF (paroxysmal (units (unknown) date) atrial unknown) fibrillation) (unknown) (no (unknown) (unknown) ALT 68 H (<35) (units (unknown) date) IU/L unknown) (unknown) (no (unknown) (unknown) ALT (<35) IU/L (units (unknown) date) unknown) (unknown) (no (unknown) (unknown) AST 44 H (units (unkn own) date) (14-36) IU/L unknown) (unknown) (no (unknown) (unknown) AST (14-36) IU/L (units (unknown) date) unknown) (unknown) (no (unknown) (unknown) Abrasion, left (units (unknown) date) lower leg, unknown) initial encounter (unknown) (no (unknown) (unknown) Abscess and (units (un known) date) cellulitis of unknown) gluteal region (unknown) (no (unknown) (unknown) Acute UTI (units (unkn own) date) unknown) (unknown) (no (unknown) (unknown) Acute (units (unkno wn) date) hypokalemia unknown) (unknown) (no (unknown) (unknown) Acute narcotic (units (unknown) date) withdrawal unknown) without complication (unknown) (no (unknown) (unknown) Age/Sex: 66 / F (units (unknown) date) unknown) (unknown) (no (unknown) (unknown) Albumin 4.4 (units (un known) date) (3.5-5.0) g/dL unknown) (unknown) (no (unknown) (unknown) Albumin (units (unkno wn) date) (3.5-5.0) g/dL unknown) (unknown) (no (unknown) (unknown) Albumin/Globulin (units (unknown) date) Ratio 1.0 unknown) (1.0-2.8) (unknown) (no (unknown) (unknown) Albumin/Globulin (units (unknown) date) Ratio (1.0-2.8) unknown) (unknown) (no (unknown) (unknown) Alkaline (units (unkno wn) date) Phosphatase 108 unknown) (38-126) U/L (unknown) (no (unknown) (unknown) Alkaline (units (unkno wn) date) Phosphatase unknown) (38-126) U/L (unknown) (no (unknown) (unknown) Allergy/AdvReac (units (unknown) date) Type Severity unknown) Reaction Status Date / Time (unknown) (no (unknown) (unknown) Anemia (units (unkno wn) date) unknown) (unknown) (no (unknown) (unknown) BUN 12 (7-17) (units ( unknown) date) mg/dL unknown) (unknown) (no (unknown) (unknown) BUN (7-17) (units (unk nown) date) mg/dL unknown) (unknown) (no (unknown) (unknown) BUN/Creatinine (units (unknown) date) Ratio 25.5 H unknown) (6-22) (unknown) (no (unknown) (unknown) BUN/Creatinine (units (unknown) date) Ratio (6-22) unknown) (unknown) (no (unknown) (unknown) Baso # (Auto) (units ( unknown) date) (0-100) /uL unknown) (unknown) (no (unknown) (unknown) Baso # (Auto) 0 (units (unknown) date) (0-100) /uL unknown) (unknown) (no (unknown) (unknown) Baso % (Auto) (units ( unknown) date) (0-2) % unknown) (unknown) (no (unknown) (unknown) Baso % (Auto) (units ( unknown) date) 0.2 (0-2) % unknown) (unknown) (no (unknown) (unknown) Bilateral lower (units (unknown) date) leg cellulitis unknown) (unknown) (no (unknown) (unknown) Bleeding from (units ( unknown) date) PICC line unknown) (unknown) (no (unknown) (unknown) Blood Culture (units ( unknown) date) Stat unknown) (unknown) (no (unknown) (unknown) Blood Pressure (units (unknown) date) 164/72 H 12/07/21 unknown) 16:32 (unknown) (no (unknown) (unknown) Blood Pressure (units (unknown) date) 164/72 H unknown) (unknown) (no (unknown) (unknown) Brother Mental (units (unknown) date) health problem unknown) (unknown) (no (unknown) (unknown) COVID19 -Nasal (units (unknown) date) RAPID/Pre-Proc unknown) Stat (unknown) (no (unknown) (unknown) Calcium 9.1 (units (un known) date) (8.4-10.2) mg/dL unknown) (unknown) (no (unknown) (unknown) Calcium (units (unkno wn) date) (8.4-10.2) mg/dL unknown) (unknown) (no (unknown) (unknown) Carbon Dioxide (units (unknown) date) 32 (22-32) mmol/L unknown) (unknown) (no (unknown) (unknown) Carbon Dioxide (units (unknown) date) (22-32) mmol/L unknown) (unknown) (no (unknown) (unknown) Cat scratch of (units (unknown) date) face unknown) (unknown) (no (unknown) (unknown) Cellulitis (units (unk nown) date) unknown) (unknown) (no (unknown) (unknown) Chief Complaint: (units (unknown) date) Recheck/Abnormal unknown) Lab/Rx (unknown) (no (unknown) (unknown) Chloride 105 (units (u nknown) date) (98-107) mmol/L unknown) (unknown) (no (unknown) (unknown) Chloride (units (unkno wn) date) (98-107) mmol/L unknown) (unknown) (no (unknown) (unknown) 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 (unknown) (no (unknown) (unknown) Chronic (units (unkno wn) date) osteomyelitis unknown) involving multiple sites (unknown) (no (unknown) (unknown) Chronic skin (units (u nknown) date) ulcer unknown) (unknown) (no (unknown) (unknown) Complete Blood (units (unknown) date) Count AUTO DIFF unknown) Stat (unknown) (no (unknown) (unknown) Comprehensive (units ( unknown) date) Metabolic Panel unknown) Stat (unknown) (no (unknown) (unknown) Contusion of (units (u nknown) date) left lower leg, unknown) initial encounter (unknown) (no (unknown) (unknown) Course (units (unkno wn) date) unknown) (unknown) (no (unknown) (unknown) Creatinine 0.47 (units (unknown) date) L (0.52-1.04) unknown) mg/dL (unknown) (no (unknown) (unknown) Creatinine (units (unk nown) date) (0.52-1.04) mg/dL unknown) (unknown) (no (unknown) (unknown) Cutaneous (units (unkn own) date) abscess of unknown) buttock (unknown) (no (unknown) (unknown) : 1955 (units (unknown) date) Acct:[id number] unknown) (unknown) (no (unknown) (unknown) Deep vein (units (unkn own) date) thrombosis unknown) (unknown) (no (unknown) (unknown) Departure (units (unkn own) date) unknown) (unknown) (no (unknown) (unknown) Discharge Plan (units (unknown) date) unknown) (unknown) (no (unknown) (unknown) Dizziness (units (unkn own) date) unknown) (unknown) (no (unknown) (unknown) ER Physician: (units ( unknown) date) Matthew Mccormick unknown) D.O. (unknown) (no (unknown) (unknown) Eos # (Auto) (units (u nknown) date) (0-450) /uL unknown) (unknown) (no (unknown) (unknown) Eos # (Auto) 0 (units (unknown) date) (0-450) /uL unknown) (unknown) (no (unknown) (unknown) Eos % (Auto) (units (u nknown) date) (2-4) % unknown) (unknown) (no (unknown) (unknown) Eos % (Auto) 0.1 (units (unknown) date) L (2-4) % unknown) (unknown) (no (unknown) (unknown) Estimated GFR > (units (unknown) date) 60 (>60) mL/min unknown) (unknown) (no (unknown) (unknown) Estimated GFR (units ( unknown) date) (>60) mL/min unknown) (unknown) (no (unknown) (unknown) Exam (units (unkno wn) date) unknown) (unknown) (no (unknown) (unknown) Fall (units (unkno wn) date) unknown) (unknown) (no (unknown) (unknown) Family History (units (unknown) date) (Reviewed unknown) 11/20/21 @ 14:27 by Elena Hamilton [facility]) (unknown) (no (unknown) (unknown) General (units (unkno wn) date) unknown) (unknown) (no (unknown) (unknown) GenericComposite (units (unknown) date) [Plt Count unknown) (150-400) X10^3/uL ] (unknown) (no (unknown) (unknown) GenericComposite (units (unknown) date) [Plt Count 214 unknown) (150-400) X10^3/uL ] (unknown) (no (unknown) (unknown) GenericComposite (units (unknown) date) [RBC (4.0-5.2) unknown) X10^6/uL ] (unknown) (no (unknown) (unknown) GenericComposite (units (unknown) date) [RBC 4.01 unknown) (4.0-5.2) X10^6/uL ] (unknown) (no (unknown) (unknown) GenericComposite (units (unknown) date) [WBC (4.5-11.0) unknown) X10^3/uL ] (unknown) (no (unknown) (unknown) GenericComposite (units (unknown) date) [WBC 8.1 unknown) (4.5-11.0) X10^3/uL ] (unknown) (no (unknown) (unknown) Globulin 4.2 H (units (unknown) date) (1.7-4.1) g/dL unknown) (unknown) (no (unknown) (unknown) Globulin (units (unkno wn) date) (1.7-4.1) g/dL unknown) (unknown) (no (unknown) (unknown) Glucose 90 (units (unk nown) date) (80-110) mg/dL unknown) (unknown) (no (unknown) (unknown) Glucose (80-110) (units (unknown) date) mg/dL unknown) (unknown) (no (unknown) (unknown) Grandfather (units (un known) date) Cancer unknown) (unknown) (no (unknown) (unknown) HPI - (units (unkno wn) date) Recheck/Abnormal unknown) Lab/Rx (unknown) (no (unknown) (unknown) Hct (36-46) % (units ( unknown) date) unknown) (unknown) (no (unknown) (unknown) Hct 36.9 (36-46) (units (unknown) date) % unknown) (unknown) (no (unknown) (unknown) Hematoma of left (units (unknown) date) lower extremity unknown) (unknown) (no (unknown) (unknown) Hemiparesis (units (un known) date) unknown) (unknown) (no (unknown) (unknown) Hepatitis C (units (un known) date) () unknown) (unknown) (no (unknown) (unknown) Hgb (12.0-16.0) (units (unknown) date) g/dL unknown) (unknown) (no (unknown) (unknown) Hgb 12.5 (units (unkno wn) date) (12.0-16.0) g/dL unknown) (unknown) (no (unknown) (unknown) Neo Pritchard MD (units (unknown) date) [Primary Care unknown) Provider] - (unknown) (no (unknown) (unknown) Initial Vital (units ( unknown) date) Signs unknown) (unknown) (no (unknown) (unknown) Initial Vital (units ( unknown) date) Signs: unknown) (unknown) (no (unknown) (unknown) Lab Data (units (unkno wn) date) unknown) (unknown) (no (unknown) (unknown) Labs: (units (unkno wn) date) unknown) (unknown) (no (unknown) (unknown) Lactate (units (unkno wn) date) (0.7-2.1) mmol/L unknown) (unknown) (no (unknown) (unknown) Lactate 1.1 (units (un known) date) (0.7-2.1) mmol/L unknown) (unknown) (no (unknown) (unknown) Lactate (Lactic (units (unknown) date) Acid) Stat unknown) (unknown) (no (unknown) (unknown) Left leg (units (unkno wn) date) cellulitis unknown) (unknown) (no (unknown) (unknown) Lymph # (Auto) (units (unknown) date) (1754-0423) /uL unknown) (unknown) (no (unknown) (unknown) Lymph # (Auto) (units (unknown) date) 1400 (3232-4235) unknown) /uL (unknown) (no (unknown) (unknown) Lymph % (Auto) (units (unknown) date) (25-40) % unknown) (unknown) (no (unknown) (unknown) Lymph % (Auto) (units (unknown) date) 17.4 L (25-40) % unknown) (unknown) (no (unknown) (unknown) MCH (26-34) PG (units (unknown) date) unknown) (unknown) (no (unknown) (unknown) MCH 31.1 (26-34) (units (unknown) date) PG unknown) (unknown) (no (unknown) (unknown) MCHC (30-36) % (units (unknown) date) unknown) (unknown) (no (unknown) (unknown) MCHC 33.8 (units (unkn own) date) (30-36) % unknown) (unknown) (no (unknown) (unknown) MCV (80-100) fL (units (unknown) date) unknown) (unknown) (no (unknown) (unknown) MCV 91.9 (units (unkno wn) date) (80-100) fL unknown) (unknown) (no (unknown) (unknown) MDM - (units (unkno wn) date) Recheck/Abnormal unknown) Lab/Rx (unknown) (no (unknown) (unknown) Measles (units (unkno wn) date) unknown) (unknown) (no (unknown) (unknown) Medical History (units (unknown) date) (Updated 12/07/21 unknown) @ 00:00 by ) (unknown) (no (unknown) (unknown) Mode of arrival: (units (unknown) date) EMS unknown) (unknown) (no (unknown) (unknown) Jerome # (Auto) (units ( unknown) date) (0-900) /uL unknown) (unknown) (no (unknown) (unknown) Jerome # (Auto) (units ( unknown) date) 600 (0-900) /uL unknown) (unknown) (no (unknown) (unknown) Jerome % (Auto) (units ( unknown) date) (3-14) % unknown) (unknown) (no (unknown) (unknown) Jerome % (Auto) (units ( unknown) date) 6.9 (3-14) % unknown) (unknown) (no (unknown) (unknown) 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) (unknown) (no (unknown) (unknown) Multiple falls (units (unknown) date) unknown) (unknown) (no (unknown) (unknown) Neut # (Auto) (units ( unknown) date) (6075-5538) /uL unknown) (unknown) (no (unknown) (unknown) Neut # (Auto) (units ( unknown) date) 6100 (4183-0824) unknown) /uL (unknown) (no (unknown) (unknown) Neut % (Auto) (units ( unknown) date) (50-75) % unknown) (unknown) (no (unknown) (unknown) Neut % (Auto) (units ( unknown) date) 75.4 H (50-75) % unknown) (unknown) (no (unknown) (unknown) No Action (units (unkn own) date) unknown) (unknown) (no (unknown) (unknown) Ordered: (units (unkno wn) date) unknown) (unknown) (no (unknown) (unknown) Orders (units (unkno wn) date) unknown) (unknown) (no (unknown) (unknown) Oxygen Delivery (units (unknown) date) Method 12/07/21 unknown) 16:32 (unknown) (no (unknown) (unknown) Oxygen Delivery (units (unknown) date) Method Room Air unknown) (unknown) (no (unknown) (unknown) PICC (units (unkno wn) date) (peripherally unknown) inserted central catheter) in place (unknown) (no (unknown) (unknown) Paraplegia (units (unk nown) date) (02/14/16) unknown) (unknown) (no (unknown) (unknown) Paraplegic (units (unk nown) date) spinal paralysis unknown) (unknown) (no (unknown) (unknown) Patient History (units (unknown) date) unknown) (unknown) (no (unknown) (unknown) Patient: (units (unkno wn) date) Karina Diallo MR#: unknown) [id number] (unknown) (no (unknown) (unknown) Penicillins (units (un known) date) Allergy Unknown unknown) Verified 11/28/21 07:23 (unknown) (no (unknown) (unknown) Post-op bleeding (units (unknown) date) unknown) (unknown) (no (unknown) (unknown) Potassium 3.9 (units ( unknown) date) (3.4-5.1) mmol/L unknown) (unknown) (no (unknown) (unknown) Potassium (units (unkn own) date) (3.4-5.1) mmol/L unknown) (unknown) (no (unknown) (unknown) Prescriptions: (units (unknown) date) unknown) (unknown) (no (unknown) (unknown) Pressure ulcer (units (unknown) date) of contiguous unknown) site of back, buttock and hip, stage 2 (unknown) (no (unknown) (unknown) Pressure ulcer (units (unknown) date) of left thigh unknown) (unknown) (no (unknown) (unknown) Pulse Rate 102 H (units (unknown) date) 12/07/21 16:32 unknown) (unknown) (no (unknown) (unknown) Pulse Rate 102 H (units (unknown) date) unknown) (unknown) (no (unknown) (unknown) RDW (11.6-14.8) (units (unknown) date) % unknown) (unknown) (no (unknown) (unknown) RDW 13.6 (units (unkno wn) date) (11.6-14.8) % unknown) (unknown) (no (unknown) (unknown) Referrals: (units (unk nown) date) unknown) (unknown) (no (unknown) (unknown) Related Data (units (u nknown) date) unknown) (unknown) (no (unknown) (unknown) Respiratory Rate (units (unknown) date) 20 12/07/21 16:32 unknown) (unknown) (no (unknown) (unknown) Respiratory Rate (units (unknown) date) 20 unknown) (unknown) (no (unknown) (unknown) Result diagrams: (units (unknown) date) unknown) (unknown) (no (unknown) (unknown) Retention of (units (u nknown) date) urine, unknown) unspecified (unknown) (no (unknown) (unknown) SARS-CoV-2 (PCR) (units (unknown) date) (Negative) unknown) (unknown) (no (unknown) (unknown) SARS-CoV-2 (PCR) (units (unknown) date) Negative unknown) (Negative) (unknown) (no (unknown) (unknown) Seasonal (units (unkno wn) date) allergies unknown) (unknown) (no (unknown) (unknown) Signed By: (units (unk nown) date) unknown) (unknown) (no (unknown) (unknown) Sister Mental (units ( unknown) date) health problem unknown) (unknown) (no (unknown) (unknown) Skin ulcer of (units ( unknown) date) ankle unknown) (unknown) (no (unknown) (unknown) Smoking Status: (units (unknown) date) Former smoker unknown) (unknown) (no (unknown) (unknown) Smoking Status: (units (unknown) date) Former smoker unknown) (unknown) (no (unknown) (unknown) Social History (units (unknown) date) (Reviewed unknown) 11/18/21 @ 05:16 by Noah Jessica DO) (unknown) (no (unknown) (unknown) Sodium 141 (units (unk nown) date) (137-145) mmol/L unknown) (unknown) (no (unknown) (unknown) Sodium (137-145) (units (unknown) date) mmol/L unknown) (unknown) (no (unknown) (unknown) Source: EMS (units (un known) date) unknown) (unknown) (no (unknown) (unknown) Stated (units (unkno wn) date) Complaint: Body unknown) Aches (unknown) (no (unknown) (unknown) Substance Use (units ( unknown) date) Type: marijuana unknown) (unknown) (no (unknown) (unknown) Temperature 98.7 (units (unknown) date) F 12/07/21 16:32 unknown) (unknown) (no (unknown) (unknown) Temperature 98.7 (units (unknown) date) F unknown) (unknown) (no (unknown) (unknown) Time Seen by (units (u nknown) date) Provider: unknown) 12/07/21 19:51 (unknown) (no (unknown) (unknown) Toe laceration (units (unknown) date) unknown) (unknown) (no (unknown) (unknown) Total Bilirubin (units (unknown) date) 0.4 (0.2-1.3) unknown) mg/dL (unknown) (no (unknown) (unknown) Total Bilirubin (units (unknown) date) (0.2-1.3) mg/dL unknown) (unknown) (no (unknown) (unknown) Total Protein (units ( unknown) date) 8.6 H (6.3-8.2) unknown) g/dL (unknown) (no (unknown) (unknown) Total Protein (units ( unknown) date) (6.3-8.2) g/dL unknown) (unknown) (no (unknown) (unknown) UA Complete (units (un known) date) [Urinalysis and unknown) Microscopic] Stat (unknown) (no (unknown) (unknown) UTI (urinary (units (u nknown) date) tract infection) unknown) (unknown) (no (unknown) (unknown) UTI (urinary (units (u nknown) date) tract infection) unknown) due to Enterococcus (unknown) (no (unknown) (unknown) Vital Signs (units (un known) date) unknown) (unknown) (no (unknown) (unknown) Vital signs: (units (u nknown) date) unknown) (unknown) (no (unknown) (unknown) Wound of sacral (units (unknown) date) region, unknown) subsequent encounter (08/29/15) (unknown) (no (unknown) (unknown) [Embedded Image (units (unknown) date) Not Available] unknown) (unknown) (no (unknown) (unknown) alcohol intake (units (unknown) date) frequency: unknown) holidays/special occasions only (unknown) (no (unknown) (unknown) alcohol intake: (units (unknown) date) never unknown) (unknown) (no (unknown) (unknown) cefpodoxime 200 (units (unknown) date) mg tablet 200 mg unknown) PO Q12H #14 tabs 11/28/21 (unknown) (no (unknown) (unknown) chlorhexidine (units ( unknown) date) Allergy Mild unknown) ITCHING Verified 11/28/21 07:23 (unknown) (no (unknown) (unknown) ertapenem (units (unkn own) date) Allergy Severe unknown) SEIZURES Verified 11/28/21 07:23 (unknown) (no (unknown) (unknown) household (units (unkn own) date) members: none unknown) (unknown) (no (unknown) (unknown) hydrocodone 5 (units ( unknown) date) mg-acetaminophen unknown) 325 1 tab PO Q6H PRN pain #10 tabs 11/28/21 (unknown) (no (unknown) (unknown) lactose AdvReac (units (unknown) date) Unknown Verified unknown) 11/28/21 07:23 (unknown) (no (unknown) (unknown) levothyroxine 50 (units (unknown) date) mcg tablet 50 mcg unknown) PO DAILY #30 tabs 10/12/19 (unknown) (no (unknown) (unknown) linezolid (units (unkn own) date) [LINEZOLID] unknown) Allergy Mild Verified 11/28/21 07:23 (unknown) (no (unknown) (unknown) metronidazole (units ( unknown) date) 500 mg tablet 500 unknown) mg .Route .COMPLEX 03/17/20 (unknown) (no (unknown) (unknown) mg tablet (units (unkn own) date) unknown) (unknown) (no (unknown) (unknown) oxybutynin (units (unk nown) date) chloride 5 mg unknown) tablet 10 mg PO TID 03/17/20 (unknown) (no (unknown) (unknown) sennosides 8.6 (units (unknown) date) mg tablet (senna) unknown) 17.2 mg PO BEDTIME #60 tabs 03/17/20 Result panel 43 (unknown) (no date) (unknown) (unknown) 0.2 E.U./dL (unkn own) (unknown) (no date) (unknown) (unknown) 1.015 (units (unkn own) unknown) (unknown) (no date) (unknown) (unknown) 3+ (units (unkn own) unknown) (unknown) (no date) (unknown) (unknown) 7.0 (units (unkn own) unknown) (unknown) (no date) (unknown) (unknown) CLEAR (units (unkn own) unknown) (unknown) (no date) (unknown) (unknown) NEGATIVE (units (unkn own) unknown) (unknown) (no date) (unknown) (unknown) NEGATIVE g/dL (unkn own) (unknown) (no date) (unknown) (unknown) TRACE (units (unkn own) unknown) (unknown) (no date) (unknown) (unknown) TRACE-LYSED (units (u nknown) unknown) (unknown) (no date) (unknown) (unknown) YELLOW (units (unkn own) unknown) Result panel 44 (unknown) (no date) (unknown) (unknown) 0-1/HPF (units (unkn own) unknown) (unknown) (no date) (unknown) (unknown) 0.2 E.U./dL (unkn own) (unknown) (no date) (unknown) (unknown) 1-5 /HPF (units (unkn own) unknown) (unknown) (no date) (unknown) (unknown) 1-5/HPF (units (unkn own) unknown) (unknown) (no date) (unknown) (unknown) 1.015 (units (unkn own) unknown) (unknown) (no date) (unknown) (unknown) 10-30/HPF (units (unk nown) unknown) (unknown) (no date) (unknown) (unknown) 3+ (units (unkn own) unknown) (unknown) (no date) (unknown) (unknown) 7.0 (units (unkn own) unknown) (unknown) (no date) (unknown) (unknown) CLEAR (units (unkn own) unknown) (unknown) (no date) (unknown) (unknown) Few (units (unkn own) unknown) (unknown) (no date) (unknown) (unknown) Many (>30) (units (un known) unknown) (unknown) (no date) (unknown) (unknown) NEGATIVE (units (unkn own) unknown) (unknown) (no date) (unknown) (unknown) NEGATIVE g/dL (unkn own) (unknown) (no date) (unknown) (unknown) Specimen (units (unkn own) Cultured unknown) (unknown) (no date) (unknown) (unknown) TRACE (units (unkn own) unknown) (unknown) (no date) (unknown) (unknown) TRACE-LYSED (units (u nknown) unknown) (unknown) (no date) (unknown) (unknown) YELLOW (units (unkn own) unknown) Result panel 45 (unknown) (no (unknown) (unknown) (no value) (units (unk nown) date) unknown) (unknown) (no (unknown) (unknown) [address] [place] [address] (units (unknown) date) unknown) (unknown) (no (unknown) (unknown) [place] (units ( unknown) date) [id number] unknown) (unknown) (no (unknown) (unknown) [facility] (units (unknown) date) unknown) (unknown) (no (unknown) (unknown) Signed (units (unkno wn) date) unknown) (unknown) (no (unknown) (unknown) XRay Report (units (un known) date) unknown) (unknown) (no (unknown) (unknown) (no value) (units (unk nown) date) unknown) (unknown) (no (unknown) (unknown) 12/07/21 (units (unkno wn) date) unknown) (unknown) (no (unknown) (unknown) 1. No definite (units (unknown) date) radiographic unknown) evidence of osteomyelitis but evaluation is limited (unknown) (no (unknown) (unknown) Approved by: (units (u nknown) date) Silviano Hathaway, unknown) Ani on 12/07/2021 at 22:11 (unknown) (no (unknown) (unknown) Bones: There is (units (unknown) date) marked unknown) demineralization limiting evaluation. Postsurgical (unknown) (no (unknown) (unknown) COMPARISON: [place] (units (unknown) date) [facility], CR, XR unknown) FOOT LT MIN 3V, 11/11/2019, 8:16. (unknown) (no (unknown) (unknown) Dictated by: (units (u nknown) date) Silviano Hathaway, unknown) M.D. on 12/07/2021 at 22:10 (unknown) (no (unknown) (unknown) FINDINGS: (units (unkn own) date) unknown) (unknown) (no (unknown) (unknown) IMPRESSION: (units (un known) date) unknown) (unknown) (no (unknown) (unknown) INDICATIONS: wound (units (unknown) date) overlying heel unknown) (unknown) (no (unknown) (unknown) Soft tissues: No (units (unknown) date) suspicious soft unknown) tissue calcifications or soft tissue gas. (unknown) (no (unknown) (unknown) TECHNIQUE: 3 views (units (unknown) date) of the foot were unknown) acquired. (unknown) (no (unknown) (unknown) demonstrated in (units (unknown) date) the posterior unknown) calcaneus consistent with prior partial (unknown) (no (unknown) (unknown) discrete bony (units ( unknown) date) erosions or unknown) definite periosteal reaction. (unknown) (no (unknown) (unknown) marked (units (unkno wn) date) demineralization. unknown) If clinical concern persists, further evaluation may (unknown) (no (unknown) (unknown) obtained with MRI. (units (unknown) date) unknown) (unknown) (no (unknown) (unknown) (units (unkno wn) date) unknown) (unknown) (no (unknown) (unknown) Accession Number: (units (unknown) date) [id number] unknown) (unknown) (no (unknown) (unknown) Age/Sex: 66 / F (units (unknown) date) Date of Service: unknown) (unknown) (no (unknown) (unknown) : 1955 (units (unknown) date) Acct:[id number] unknown) (unknown) (no (unknown) (unknown) Loc: ED (units (unkno wn) date) unknown) (unknown) (no (unknown) (unknown) Ordering Provider: (units (unknown) date) Matthew Mccormick D.O. unknown) (unknown) (no (unknown) (unknown) PROCEDURE: XR FOOT (units (unknown) date) LT MIN 3V unknown) (unknown) (no (unknown) (unknown) Patient: (units (unkno wn) date) Karina Diallo MR#: unknown) [id number] (unknown) (no (unknown) (unknown) Procedure: XR foot (units (unknown) date) LT min 3V unknown) (unknown) (no (unknown) (unknown) amputation. No (units (unknown) date) unknown) (unknown) (no (unknown) (unknown) be (units (unkno wn) date) unknown) (unknown) (no (unknown) (unknown) changes are (units (un known) date) unknown) (unknown) (no (unknown) (unknown) due to (units (unkno wn) date) unknown) Result panel 46 (unknown) (no (unknown) (unknown) (no value) (units (unk nown) date) unknown) (unknown) (no (unknown) (unknown) Date of Service: (units (unknown) date) 12/07/21 unknown) (unknown) (no (unknown) (unknown) (no value) (units (unk nown) date) unknown) (unknown) (no (unknown) (unknown) 12/07/21 17:26 (units (unknown) date) unknown) (unknown) (no (unknown) (unknown) 1 tab PO Q6H PRN (units (unknown) date) (Reason: pain) unknown) Qty: 10 0RF (unknown) (no (unknown) (unknown) 10 mg PO TID (units (u nknown) date) unknown) (unknown) (no (unknown) (unknown) 17.2 mg PO (units (unk nown) date) BEDTIME Qty: 60 unknown) 5RF (unknown) (no (unknown) (unknown) 200 mg PO Q12H (units (unknown) date) Qty: 14 0RF unknown) (unknown) (no (unknown) (unknown) 50 mcg PO DAILY (units (unknown) date) Qty: 30 5RF unknown) (unknown) (no (unknown) (unknown) 500 mg .ROUTE (units ( unknown) date) .COMPLEX unknown) (unknown) (no (unknown) (unknown) 500 mg crush and (units (unknown) date) apply topically unknown) to wound twice weekly; (unknown) (no (unknown) (unknown) Allergies (units (unkn own) date) unknown) (unknown) (no (unknown) (unknown) Diabetes (units (unkno wn) date) mellitus unknown) (unknown) (no (unknown) (unknown) ED Orders (units (unkn own) date) unknown) (unknown) (no (unknown) (unknown) Emergency Report (units (unknown) date) unknown) (unknown) (no (unknown) (unknown) Home Medications (units (unknown) date) unknown) (unknown) (no (unknown) (unknown) [facility] (units (unknown) date) [address] [place] [address] unknown) [place] [address] (unknown) (no (unknown) (unknown) Lab Results (units (un known) date) unknown) (unknown) (no (unknown) (unknown) Previous Rx's (units ( unknown) date) unknown) (unknown) (no (unknown) (unknown) Rx Instructions: (units (unknown) date) unknown) (unknown) (no (unknown) (unknown) Vital Signs - 8 (units (unknown) date) hr unknown) (unknown) (no (unknown) (unknown) must administer (units (unknown) date) with a meal/food unknown) (unknown) (no (unknown) (unknown) (no value) (units (unk nown) date) unknown) (unknown) (no (unknown) (unknown) 12/07/21 (units (unkno wn) date) 12/07/21 12/07/21 unknown) Range/Units (unknown) (no (unknown) (unknown) 12/07/21 (units (unkno wn) date) 12/07/21 unknown) Range/Units (unknown) (no (unknown) (unknown) 17:07 17:26 (units (un known) date) 17:26 unknown) (unknown) (no (unknown) (unknown) 17:26 19:40 (units (un known) date) unknown) (unknown) (no (unknown) (unknown) cefpodoxime 200 (units (unknown) date) mg tablet unknown) (unknown) (no (unknown) (unknown) hydrocodone-acet (units (unknown) date) aminophen 5-325 unknown) mg tablet (unknown) (no (unknown) (unknown) levothyroxine (units ( unknown) date) [Synthroid] 50 unknown) mcg tablet (unknown) (no (unknown) (unknown) metronidazole (units ( unknown) date) 500 mg tablet unknown) (unknown) (no (unknown) (unknown) oxybutynin (units (unk n) date) chloride 5 mg unknown) tablet (unknown) (no (unknown) (unknown) sennosides (units (unk n) date) [senna] 8.6 mg unknown) tablet (unknown) (no (unknown) (unknown) 12/07/21 (units (unkno wn) date) unknown) (unknown) (no (unknown) (unknown) Medication (units (unk nown) date) Instructions unknown) Recorded (unknown) (no (unknown) (unknown) Medication (units (unk n) date) Instructions unknown) Recorded Confirmed (unknown) (no (unknown) (unknown) (Synthroid) (units (un known) date) unknown) (unknown) (no (unknown) (unknown) 12/07/21 17:07 (units (unknown) date) unknown) (unknown) (no (unknown) (unknown) 12/07/21 17:26 (units (unknown) date) unknown) (unknown) (no (unknown) (unknown) 12/07/21 18:27 (units (unknown) date) unknown) (unknown) (no (unknown) (unknown) 12/07/21 19:40 (units (unknown) date) unknown) (unknown) (no (unknown) (unknown) 0807 (units (unkno wn) date) unknown) (unknown) (no (unknown) (unknown) 16:32 12/07/21 (units (unknown) date) unknown) (unknown) (no (unknown) (unknown) 20:48 (units (unkno wn) date) unknown) (unknown) (no (unknown) (unknown) AF (paroxysmal (units (unknown) date) atrial unknown) fibrillation) (unknown) (no (unknown) (unknown) ALT (<35) IU/L (units (unknown) date) unknown) (unknown) (no (unknown) (unknown) ALT 68 H (<35) (units (unknown) date) IU/L unknown) (unknown) (no (unknown) (unknown) AST (14-36) IU/L (units (unknown) date) unknown) (unknown) (no (unknown) (unknown) AST 44 H (14-36) (units (unknown) date) IU/L unknown) (unknown) (no (unknown) (unknown) Abrasion, left (units (unknown) date) lower leg, unknown) initial encounter (unknown) (no (unknown) (unknown) Abscess and (units (un known) date) cellulitis of unknown) gluteal region (unknown) (no (unknown) (unknown) Acute UTI (units (unkn own) date) unknown) (unknown) (no (unknown) (unknown) Acute (units (unkno wn) date) hypokalemia unknown) (unknown) (no (unknown) (unknown) Acute narcotic (units (unknown) date) withdrawal unknown) without complication (unknown) (no (unknown) (unknown) Age/Sex: 66 / F (units (unknown) date) unknown) (unknown) (no (unknown) (unknown) Albumin (units (unkno wn) date) (3.5-5.0) g/dL unknown) (unknown) (no (unknown) (unknown) Albumin 4.4 (units (un known) date) (3.5-5.0) g/dL unknown) (unknown) (no (unknown) (unknown) Albumin/Globulin (units (unknown) date) Ratio (1.0-2.8) unknown) (unknown) (no (unknown) (unknown) Albumin/Globulin (units (unknown) date) Ratio 1.0 unknown) (1.0-2.8) (unknown) (no (unknown) (unknown) Alkaline (units (unkno wn) date) Phosphatase unknown) (38-126) U/L (unknown) (no (unknown) (unknown) Alkaline (units (unkno wn) date) Phosphatase 108 unknown) (38-126) U/L (unknown) (no (unknown) (unknown) Allergy/AdvReac (units (unknown) date) Type Severity unknown) Reaction Status Date / Time (unknown) (no (unknown) (unknown) Anemia (units (unkno wn) date) unknown) (unknown) (no (unknown) (unknown) BUN (7-17) mg/dL (units (unknown) date) unknown) (unknown) (no (unknown) (unknown) BUN 12 (7-17) (units ( unknown) date) mg/dL unknown) (unknown) (no (unknown) (unknown) BUN/Creatinine (units (unknown) date) Ratio (6-22) unknown) (unknown) (no (unknown) (unknown) BUN/Creatinine (units (unknown) date) Ratio 25.5 H unknown) (6-22) (unknown) (no (unknown) (unknown) Baso # (Auto) (units ( unknown) date) (0-100) /uL unknown) (unknown) (no (unknown) (unknown) Baso # (Auto) 0 (units (unknown) date) (0-100) /uL unknown) (unknown) (no (unknown) (unknown) Baso % (Auto) (units ( unknown) date) (0-2) % unknown) (unknown) (no (unknown) (unknown) Baso % (Auto) (units ( unknown) date) 0.2 (0-2) % unknown) (unknown) (no (unknown) (unknown) Bilateral lower (units (unknown) date) leg cellulitis unknown) (unknown) (no (unknown) (unknown) Bleeding from (units ( unknown) date) PICC line unknown) (unknown) (no (unknown) (unknown) Blood Culture (units ( unknown) date) Stat unknown) (unknown) (no (unknown) (unknown) Blood Pressure (units (unknown) date) 164/72 H 12/07/21 unknown) 16:32 (unknown) (no (unknown) (unknown) Blood Pressure (units (unknown) date) 164/72 H 191/103 unknown) H (unknown) (no (unknown) (unknown) Brother Mental (units (unknown) date) health problem unknown) (unknown) (no (unknown) (unknown) COVID19 -Nasal (units (unknown) date) RAPID/Pre-Proc unknown) Stat (unknown) (no (unknown) (unknown) Calcium (units (unkno wn) date) (8.4-10.2) mg/dL unknown) (unknown) (no (unknown) (unknown) Calcium 9.1 (units (un known) date) (8.4-10.2) mg/dL unknown) (unknown) (no (unknown) (unknown) Calcium Oxalate (units (unknown) date) Crystal unknown) (unknown) (no (unknown) (unknown) Calcium Oxalate (units (unknown) date) Crystal Few H unknown) (unknown) (no (unknown) (unknown) Carbon Dioxide (units (unknown) date) (22-32) mmol/L unknown) (unknown) (no (unknown) (unknown) Carbon Dioxide (units (unknown) date) 32 (22-32) mmol/L unknown) (unknown) (no (unknown) (unknown) Cat scratch of (units (unknown) date) face unknown) (unknown) (no (unknown) (unknown) Cellulitis (units (unk nown) date) unknown) (unknown) (no (unknown) (unknown) Chief Complaint: (units (unknown) date) Recheck/Abnormal unknown) Lab/Rx (unknown) (no (unknown) (unknown) Chloride (units (unkno wn) date) (98-107) mmol/L unknown) (unknown) (no (unknown) (unknown) Chloride 105 (units (u nknown) date) (98-107) mmol/L unknown) (unknown) (no (unknown) (unknown) 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 (unknown) (no (unknown) (unknown) Chronic (units (unkno wn) date) osteomyelitis unknown) involving multiple sites (unknown) (no (unknown) (unknown) Chronic skin (units (u nknown) date) ulcer unknown) (unknown) (no (unknown) (unknown) Complete Blood (units (unknown) date) Count AUTO DIFF unknown) Stat (unknown) (no (unknown) (unknown) Comprehensive (units ( unknown) date) Metabolic Panel unknown) Stat (unknown) (no (unknown) (unknown) Contusion of (units (u nknown) date) left lower leg, unknown) initial encounter (unknown) (no (unknown) (unknown) Course (units (unkno wn) date) unknown) (unknown) (no (unknown) (unknown) Creatinine (units (unk nown) date) (0.52-1.04) mg/dL unknown) (unknown) (no (unknown) (unknown) Creatinine 0.47 (units (unknown) date) L (0.52-1.04) unknown) mg/dL (unknown) (no (unknown) (unknown) Cutaneous (units (unkn own) date) abscess of unknown) buttock (unknown) (no (unknown) (unknown) : 1955 (units (unknown) date) Acct:[id number] unknown) (unknown) (no (unknown) (unknown) Deep vein (units (unkn own) date) thrombosis unknown) (unknown) (no (unknown) (unknown) Departure (units (unkn own) date) unknown) (unknown) (no (unknown) (unknown) Discharge Plan (units (unknown) date) unknown) (unknown) (no (unknown) (unknown) Dizziness (units (unkn own) date) unknown) (unknown) (no (unknown) (unknown) ER Physician: (units ( unknown) date) Matthew Mccormick unknown) D.O. (unknown) (no (unknown) (unknown) Eos # (Auto) (units (u nknown) date) (0-450) /uL unknown) (unknown) (no (unknown) (unknown) Eos # (Auto) 0 (units (unknown) date) (0-450) /uL unknown) (unknown) (no (unknown) (unknown) Eos % (Auto) (units (u nknown) date) (2-4) % unknown) (unknown) (no (unknown) (unknown) Eos % (Auto) 0.1 (units (unknown) date) L (2-4) % unknown) (unknown) (no (unknown) (unknown) Estimated GFR > (units (unknown) date) 60 (>60) mL/min unknown) (unknown) (no (unknown) (unknown) Estimated GFR (units ( unknown) date) (>60) mL/min unknown) (unknown) (no (unknown) (unknown) Exam (units (unkno wn) date) unknown) (unknown) (no (unknown) (unknown) Fall (units (unkno wn) date) unknown) (unknown) (no (unknown) (unknown) Family History (units (unknown) date) (Reviewed unknown) 11/20/21 @ 14:27 by Elena Hamilton PRIVACY MANAGER) (unknown) (no (unknown) (unknown) General (units (unkno wn) date) unknown) (unknown) (no (unknown) (unknown) GenericComposite (units (unknown) date) [Plt Count unknown) (150-400) X10^3/uL ] (unknown) (no (unknown) (unknown) GenericComposite (units (unknown) date) [Plt Count 214 unknown) (150-400) X10^3/uL ] (unknown) (no (unknown) (unknown) GenericComposite (units (unknown) date) [RBC (4.0-5.2) unknown) X10^6/uL ] (unknown) (no (unknown) (unknown) GenericComposite (units (unknown) date) [RBC 4.01 unknown) (4.0-5.2) X10^6/uL ] (unknown) (no (unknown) (unknown) GenericComposite (units (unknown) date) [WBC (4.5-11.0) unknown) X10^3/uL ] (unknown) (no (unknown) (unknown) GenericComposite (units (unknown) date) [WBC 8.1 unknown) (4.5-11.0) X10^3/uL ] (unknown) (no (unknown) (unknown) Globulin (units (unkno wn) date) (1.7-4.1) g/dL unknown) (unknown) (no (unknown) (unknown) Globulin 4.2 H (units (unknown) date) (1.7-4.1) g/dL unknown) (unknown) (no (unknown) (unknown) Glucose (80-110) (units (unknown) date) mg/dL unknown) (unknown) (no (unknown) (unknown) Glucose 90 (units (unk nown) date) (80-110) mg/dL unknown) (unknown) (no (unknown) (unknown) Grandfather (units (un known) date) Cancer unknown) (unknown) (no (unknown) (unknown) HPI - (units (unkno wn) date) Recheck/Abnormal unknown) Lab/Rx (unknown) (no (unknown) (unknown) Hct (36-46) % (units ( unknown) date) unknown) (unknown) (no (unknown) (unknown) Hct 36.9 (36-46) (units (unknown) date) % unknown) (unknown) (no (unknown) (unknown) Hematoma of left (units (unknown) date) lower extremity unknown) (unknown) (no (unknown) (unknown) Hemiparesis (units (un known) date) unknown) (unknown) (no (unknown) (unknown) Hepatitis C (units (un known) date) () unknown) (unknown) (no (unknown) (unknown) Hgb (12.0-16.0) (units (unknown) date) g/dL unknown) (unknown) (no (unknown) (unknown) Hgb 12.5 (units (unkno wn) date) (12.0-16.0) g/dL unknown) (unknown) (no (unknown) (unknown) Neo Pritchard MD (units (unknown) date) [Primary Care unknown) Provider] - (unknown) (no (unknown) (unknown) Initial Vital (units ( unknown) date) Signs unknown) (unknown) (no (unknown) (unknown) Initial Vital (units ( unknown) date) Signs: unknown) (unknown) (no (unknown) (unknown) Lab Data (units (unkno wn) date) unknown) (unknown) (no (unknown) (unknown) Labs: (units (unkno wn) date) unknown) (unknown) (no (unknown) (unknown) Lactate (units (unkno wn) date) (0.7-2.1) mmol/L unknown) (unknown) (no (unknown) (unknown) Lactate 1.1 (units (un known) date) (0.7-2.1) mmol/L unknown) (unknown) (no (unknown) (unknown) Lactate (Lactic (units (unknown) date) Acid) Stat unknown) (unknown) (no (unknown) (unknown) Left leg (units (unkno wn) date) cellulitis unknown) (unknown) (no (unknown) (unknown) Lymph # (Auto) (units (unknown) date) (4899-8931) /uL unknown) (unknown) (no (unknown) (unknown) Lymph # (Auto) (units (unknown) date) 1400 (0011-4307) unknown) /uL (unknown) (no (unknown) (unknown) Lymph % (Auto) (units (unknown) date) (25-40) % unknown) (unknown) (no (unknown) (unknown) Lymph % (Auto) (units (unknown) date) 17.4 L (25-40) % unknown) (unknown) (no (unknown) (unknown) MCH (26-34) PG (units (unknown) date) unknown) (unknown) (no (unknown) (unknown) MCH 31.1 (26-34) (units (unknown) date) PG unknown) (unknown) (no (unknown) (unknown) MCHC (30-36) % (units (unknown) date) unknown) (unknown) (no (unknown) (unknown) MCHC 33.8 (units (unkn own) date) (30-36) % unknown) (unknown) (no (unknown) (unknown) MCV (80-100) fL (units (unknown) date) unknown) (unknown) (no (unknown) (unknown) MCV 91.9 (units (unkno wn) date) (80-100) fL unknown) (unknown) (no (unknown) (unknown) MDM - (units (unkno wn) date) Recheck/Abnormal unknown) Lab/Rx (unknown) (no (unknown) (unknown) Measles (units (unkno wn) date) unknown) (unknown) (no (unknown) (unknown) Medical History (units (unknown) date) (Updated 12/07/21 unknown) @ 00:00 by ) (unknown) (no (unknown) (unknown) Mode of arrival: (units (unknown) date) EMS unknown) (unknown) (no (unknown) (unknown) Jerome # (Auto) (units ( unknown) date) (0-900) /uL unknown) (unknown) (no (unknown) (unknown) Jerome # (Auto) (units ( unknown) date) 600 (0-900) /uL unknown) (unknown) (no (unknown) (unknown) Jerome % (Auto) (units ( unknown) date) (3-14) % unknown) (unknown) (no (unknown) (unknown) Jerome % (Auto) (units ( unknown) date) 6.9 (3-14) % unknown) (unknown) (no (unknown) (unknown) 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) (unknown) (no (unknown) (unknown) Multiple falls (units (unknown) date) unknown) (unknown) (no (unknown) (unknown) Neut # (Auto) (units ( unknown) date) (3662-1492) /uL unknown) (unknown) (no (unknown) (unknown) Neut # (Auto) (units ( unknown) date) 6100 (6697-5159) unknown) /uL (unknown) (no (unknown) (unknown) Neut % (Auto) (units ( unknown) date) (50-75) % unknown) (unknown) (no (unknown) (unknown) Neut % (Auto) (units ( unknown) date) 75.4 H (50-75) % unknown) (unknown) (no (unknown) (unknown) No Action (units (unkn own) date) unknown) (unknown) (no (unknown) (unknown) Ordered: (units (unkno wn) date) unknown) (unknown) (no (unknown) (unknown) Orders (units (unkno wn) date) unknown) (unknown) (no (unknown) (unknown) Oxygen Delivery (units (unknown) date) Method 12/07/21 unknown) 16:32 (unknown) (no (unknown) (unknown) Oxygen Delivery (units (unknown) date) Method Room Air unknown) Room Air (unknown) (no (unknown) (unknown) PICC (units (unkno wn) date) (peripherally unknown) inserted central catheter) in place (unknown) (no (unknown) (unknown) Paraplegia (units (unk nown) date) (02/14/16) unknown) (unknown) (no (unknown) (unknown) Paraplegic (units (unk nown) date) spinal paralysis unknown) (unknown) (no (unknown) (unknown) Patient History (units (unknown) date) unknown) (unknown) (no (unknown) (unknown) Patient: (units (unkno wn) date) Karina Diallo MR#: unknown) [id number] (unknown) (no (unknown) (unknown) Penicillins (units (un known) date) Allergy Unknown unknown) Verified 11/28/21 07:23 (unknown) (no (unknown) (unknown) Post-op bleeding (units (unknown) date) unknown) (unknown) (no (unknown) (unknown) Potassium (units (unkn own) date) (3.4-5.1) mmol/L unknown) (unknown) (no (unknown) (unknown) Potassium 3.9 (units ( unknown) date) (3.4-5.1) mmol/L unknown) (unknown) (no (unknown) (unknown) Prescriptions: (units (unknown) date) unknown) (unknown) (no (unknown) (unknown) Pressure ulcer (units (unknown) date) of contiguous unknown) site of back, buttock and hip, stage 2 (unknown) (no (unknown) (unknown) Pressure ulcer (units (unknown) date) of left thigh unknown) (unknown) (no (unknown) (unknown) Pulse Oximetry (units (unknown) date) 96 unknown) (unknown) (no (unknown) (unknown) Pulse Rate 102 H (units (unknown) date) 12/07/21 16:32 unknown) (unknown) (no (unknown) (unknown) Pulse Rate 102 H (units (unknown) date) 61 unknown) (unknown) (no (unknown) (unknown) RDW (11.6-14.8) (units (unknown) date) % unknown) (unknown) (no (unknown) (unknown) RDW 13.6 (units (unkno wn) date) (11.6-14.8) % unknown) (unknown) (no (unknown) (unknown) Referrals: (units (unk nown) date) unknown) (unknown) (no (unknown) (unknown) Related Data (units (u nknown) date) unknown) (unknown) (no (unknown) (unknown) Respiratory Rate (units (unknown) date) 20 12/07/21 16:32 unknown) (unknown) (no (unknown) (unknown) Respiratory Rate (units (unknown) date) 20 14 unknown) (unknown) (no (unknown) (unknown) Result diagrams: (units (unknown) date) unknown) (unknown) (no (unknown) (unknown) Retention of (units (u nknown) date) urine, unknown) unspecified (unknown) (no (unknown) (unknown) SARS-CoV-2 (PCR) (units (unknown) date) (Negative) unknown) (unknown) (no (unknown) (unknown) SARS-CoV-2 (PCR) (units (unknown) date) Negative unknown) (Negative) (unknown) (no (unknown) (unknown) Seasonal (units (unkno wn) date) allergies unknown) (unknown) (no (unknown) (unknown) Signed By: (units (unk nown) date) unknown) (unknown) (no (unknown) (unknown) Sister Mental (units ( unknown) date) health problem unknown) (unknown) (no (unknown) (unknown) Skin ulcer of (units ( unknown) date) ankle unknown) (unknown) (no (unknown) (unknown) Smoking Status: (units (unknown) date) Former smoker unknown) (unknown) (no (unknown) (unknown) Smoking Status: (units (unknown) date) Former smoker unknown) (unknown) (no (unknown) (unknown) Social History (units (unknown) date) (Reviewed unknown) 11/18/21 @ 05:16 by Noah Jessica DO) (unknown) (no (unknown) (unknown) Sodium (137-145) (units (unknown) date) mmol/L unknown) (unknown) (no (unknown) (unknown) Sodium 141 (units (unk nown) date) (137-145) mmol/L unknown) (unknown) (no (unknown) (unknown) Source: EMS (units (un known) date) unknown) (unknown) (no (unknown) (unknown) Stated (units (unkno wn) date) Complaint: Body unknown) Aches (unknown) (no (unknown) (unknown) Substance Use (units ( unknown) date) Type: marijuana unknown) (unknown) (no (unknown) (unknown) Temperature 98.7 (units (unknown) date) F 12/07/21 16:32 unknown) (unknown) (no (unknown) (unknown) Temperature 98.7 (units (unknown) date) F 97.9 F unknown) (unknown) (no (unknown) (unknown) Time Seen by (units (u nknown) date) Provider: unknown) 12/07/21 19:51 (unknown) (no (unknown) (unknown) Toe laceration (units (unknown) date) unknown) (unknown) (no (unknown) (unknown) Total Bilirubin (units (unknown) date) (0.2-1.3) mg/dL unknown) (unknown) (no (unknown) (unknown) Total Bilirubin (units (unknown) date) 0.4 (0.2-1.3) unknown) mg/dL (unknown) (no (unknown) (unknown) Total Protein (units ( unknown) date) (6.3-8.2) g/dL unknown) (unknown) (no (unknown) (unknown) Total Protein (units ( unknown) date) 8.6 H (6.3-8.2) unknown) g/dL (unknown) (no (unknown) (unknown) UA Complete (units (un known) date) [Urinalysis and unknown) Microscopic] Stat (unknown) (no (unknown) (unknown) UTI (urinary (units (u nknown) date) tract infection) unknown) (unknown) (no (unknown) (unknown) UTI (urinary (units (u nknown) date) tract infection) unknown) due to Enterococcus (unknown) (no (unknown) (unknown) Ur Culture (units (unk nown) date) Indicated? unknown) (unknown) (no (unknown) (unknown) Ur Culture (units (unk nown) date) Indicated? unknown) Specimen cultured (unknown) (no (unknown) (unknown) Ur Leukocyte (units (u nknown) date) Esterase unknown) (NEGATIVE) (unknown) (no (unknown) (unknown) Ur Leukocyte (units (u nknown) date) Esterase 3+ H unknown) (NEGATIVE) (unknown) (no (unknown) (unknown) Ur Renal (units (unkno wn) date) Epithelial Cell unknown) (0-1/HPF) (unknown) (no (unknown) (unknown) Ur Renal (units (unkno wn) date) Epithelial Cell unknown) 0-1/hpf (0-1/HPF) (unknown) (no (unknown) (unknown) Ur Specific (units (un known) date) Duarte unknown) (1.000-1.035) (unknown) (no (unknown) (unknown) Ur Specific (units (un known) date) Duarte 1.015 unknown) (1.000-1.035) (unknown) (no (unknown) (unknown) Ur Squamous (units (un known) date) Epith Cells unknown) (0-5/HPF) (unknown) (no (unknown) (unknown) Ur Squamous (units (un known) date) Epith Cells 1-5 unknown) /hpf (0-5/HPF) (unknown) (no (unknown) (unknown) Ur Transition (units ( unknown) date) Epith Cell unknown) (0-5/HPF) (unknown) (no (unknown) (unknown) Ur Transition (units ( unknown) date) Epith Cell unknown) 1-5/hpf (0-5/HPF) (unknown) (no (unknown) (unknown) Urine Appearance (units (unknown) date) unknown) (unknown) (no (unknown) (unknown) Urine Appearance (units (unknown) date) Clear unknown) (unknown) (no (unknown) (unknown) Urine Bacteria (units (unknown) date) (None) unknown) (unknown) (no (unknown) (unknown) Urine Bacteria (units (unknown) date) Many (>30) H unknown) (None) (unknown) (no (unknown) (unknown) Urine Bilirubin (units (unknown) date) (NEGATIVE) unknown) (unknown) (no (unknown) (unknown) Urine Bilirubin (units (unknown) date) Negative unknown) (NEGATIVE) (unknown) (no (unknown) (unknown) Urine Color (units (un known) date) unknown) (unknown) (no (unknown) (unknown) Urine Color (units (un known) date) Yellow unknown) (unknown) (no (unknown) (unknown) Urine Culture (units ( unknown) date) Stat unknown) (unknown) (no (unknown) (unknown) Urine Glucose (units ( unknown) date) (UA) (Negative) unknown) g/dL (unknown) (no (unknown) (unknown) Urine Glucose (units ( unknown) date) (UA) Negative unknown) (Negative) g/dL (unknown) (no (unknown) (unknown) Urine Ketones (units ( unknown) date) (NEGATIVE) unknown) (unknown) (no (unknown) (unknown) Urine Ketones (units ( unknown) date) Trace H unknown) (NEGATIVE) (unknown) (no (unknown) (unknown) Urine Nitrate (units ( unknown) date) (Negative) unknown) (unknown) (no (unknown) (unknown) Urine Nitrate (units ( unknown) date) Negative unknown) (Negative) (unknown) (no (unknown) (unknown) Urine Occult (units (u nknown) date) Blood (Negative) unknown) (unknown) (no (unknown) (unknown) Urine Occult (units (u nknown) date) Blood Trace-lysed unknown) (Negative) (unknown) (no (unknown) (unknown) Urine Protein (units ( unknown) date) (Negative) unknown) (unknown) (no (unknown) (unknown) Urine Protein (units ( unknown) date) Negative unknown) (Negative) (unknown) (no (unknown) (unknown) Urine RBC (units (unkn own) date) (0-5/HPF) unknown) (unknown) (no (unknown) (unknown) Urine RBC (units (unkn own) date) 1-5/hpf (0-5/HPF) unknown) (unknown) (no (unknown) (unknown) Urine (units (unkno wn) date) Urobilinogen unknown) (0.2) E.U./dL (unknown) (no (unknown) (unknown) Urine (units (unkno wn) date) Urobilinogen 0.2 unknown) (0.2) E.U./dL (unknown) (no (unknown) (unknown) Urine WBC (units (unkn own) date) (0-5/HPF) unknown) (unknown) (no (unknown) (unknown) Urine WBC (units (unkn own) date) 10-30/hpf H unknown) (0-5/HPF) (unknown) (no (unknown) (unknown) Urine pH (units (unkno wn) date) (4.5-8.0) unknown) (unknown) (no (unknown) (unknown) Urine pH 7.0 (units (u nknown) date) (4.5-8.0) unknown) (unknown) (no (unknown) (unknown) Vital Signs (units (un known) date) unknown) (unknown) (no (unknown) (unknown) Vital signs: (units (u nknown) date) unknown) (unknown) (no (unknown) (unknown) Wound of sacral (units (unknown) date) region, unknown) subsequent encounter (08/29/15) (unknown) (no (unknown) (unknown) [Embedded Image (units (unknown) date) Not Available] unknown) (unknown) (no (unknown) (unknown) alcohol intake (units (unknown) date) frequency: unknown) holidays/special occasions only (unknown) (no (unknown) (unknown) alcohol intake: (units (unknown) date) never unknown) (unknown) (no (unknown) (unknown) cefpodoxime 200 (units (unknown) date) mg tablet 200 mg unknown) PO Q12H #14 tabs 11/28/21 (unknown) (no (unknown) (unknown) chlorhexidine (units ( unknown) date) Allergy Mild unknown) ITCHING Verified 11/28/21 07:23 (unknown) (no (unknown) (unknown) ertapenem (units (unkn own) date) Allergy Severe unknown) SEIZURES Verified 11/28/21 07:23 (unknown) (no (unknown) (unknown) household (units (unkn own) date) members: none unknown) (unknown) (no (unknown) (unknown) hydrocodone 5 (units ( unknown) date) mg-acetaminophen unknown) 325 1 tab PO Q6H PRN pain #10 tabs 11/28/21 (unknown) (no (unknown) (unknown) lactose AdvReac (units (unknown) date) Unknown Verified unknown) 11/28/21 07:23 (unknown) (no (unknown) (unknown) levothyroxine 50 (units (unknown) date) mcg tablet 50 mcg unknown) PO DAILY #30 tabs 10/12/19 (unknown) (no (unknown) (unknown) linezolid (units (unkn own) date) [LINEZOLID] unknown) Allergy Mild Verified 11/28/21 07:23 (unknown) (no (unknown) (unknown) metronidazole (units ( unknown) date) 500 mg tablet 500 unknown) mg .Route .COMPLEX 03/17/20 (unknown) (no (unknown) (unknown) mg tablet (units (unkn own) date) unknown) (unknown) (no (unknown) (unknown) oxybutynin (units (unk nown) date) chloride 5 mg unknown) tablet 10 mg PO TID 03/17/20 (unknown) (no (unknown) (unknown) sennosides 8.6 (units (unknown) date) mg tablet (senna) unknown) 17.2 mg PO BEDTIME #60 tabs 03/17/20 Result panel 47 (unknown) (no (unknown) (unknown) (no value) (units (unk nown) date) unknown) (unknown) (no (unknown) (unknown) Date of Service: (units (unknown) date) 12/07/21 unknown) (unknown) (no (unknown) (unknown) (no value) (units (unk nown) date) unknown) (unknown) (no (unknown) (unknown) 12/07/21 17:26 (units (unknown) date) unknown) (unknown) (no (unknown) (unknown) 1 tab PO Q6H PRN (units (unknown) date) (Reason: pain) unknown) Qty: 10 0RF (unknown) (no (unknown) (unknown) 10 mg PO TID (units (u nknown) date) unknown) (unknown) (no (unknown) (unknown) 17.2 mg PO (units (unk nown) date) BEDTIME Qty: 60 unknown) 5RF (unknown) (no (unknown) (unknown) 200 mg PO Q12H (units (unknown) date) Qty: 14 0RF unknown) (unknown) (no (unknown) (unknown) 50 mcg PO DAILY (units (unknown) date) Qty: 30 5RF unknown) (unknown) (no (unknown) (unknown) 500 mg .ROUTE (units ( unknown) date) .COMPLEX unknown) (unknown) (no (unknown) (unknown) 500 mg crush and (units (unknown) date) apply topically unknown) to wound twice weekly; (unknown) (no (unknown) (unknown) Allergies (units (unkn own) date) unknown) (unknown) (no (unknown) (unknown) Diabetes (units (unkno wn) date) mellitus unknown) (unknown) (no (unknown) (unknown) ED Orders (units (unkn own) date) unknown) (unknown) (no (unknown) (unknown) Emergency Report (units (unknown) date) unknown) (unknown) (no (unknown) (unknown) Home Medications (units (unknown) date) unknown) (unknown) (no (unknown) (unknown) [facility] (units (unknown) date) [address] unknown) [place] [address] (unknown) (no (unknown) (unknown) Lab Results (units (un known) date) unknown) (unknown) (no (unknown) (unknown) Previous Rx's (units ( unknown) date) unknown) (unknown) (no (unknown) (unknown) Rx Instructions: (units (unknown) date) unknown) (unknown) (no (unknown) (unknown) Vital Signs - 8 (units (unknown) date) hr unknown) (unknown) (no (unknown) (unknown) must administer (units (unknown) date) with a meal/food unknown) (unknown) (no (unknown) (unknown) (no value) (units (unk nown) date) unknown) (unknown) (no (unknown) (unknown) 12/07/21 (units (unkno wn) date) 12/07/21 12/07/21 unknown) Range/Units (unknown) (no (unknown) (unknown) 12/07/21 (units (unkno wn) date) 12/07/21 unknown) Range/Units (unknown) (no (unknown) (unknown) 17:07 17:26 (units (un known) date) 17:26 unknown) (unknown) (no (unknown) (unknown) 17:26 19:40 (units (un known) date) unknown) (unknown) (no (unknown) (unknown) cefpodoxime 200 (units (unknown) date) mg tablet unknown) (unknown) (no (unknown) (unknown) hydrocodone-acet (units (unknown) date) aminophen 5-325 unknown) mg tablet (unknown) (no (unknown) (unknown) levothyroxine (units ( unknown) date) [Synthroid] 50 unknown) mcg tablet (unknown) (no (unknown) (unknown) metronidazole (units ( unknown) date) 500 mg tablet unknown) (unknown) (no (unknown) (unknown) oxybutynin (units (unk nown) date) chloride 5 mg unknown) tablet (unknown) (no (unknown) (unknown) sennosides (units (unk nown) date) [senna] 8.6 mg unknown) tablet (unknown) (no (unknown) (unknown) 12/07/21 (units (unkno wn) date) unknown) (unknown) (no (unknown) (unknown) Medication (units (unk nown) date) Instructions unknown) Recorded (unknown) (no (unknown) (unknown) Medication (units (unk nown) date) Instructions unknown) Recorded Confirmed (unknown) (no (unknown) (unknown) (Synthroid) (units (un known) date) unknown) (unknown) (no (unknown) (unknown) 12/07/21 17:07 (units (unknown) date) unknown) (unknown) (no (unknown) (unknown) 12/07/21 17:26 (units (unknown) date) unknown) (unknown) (no (unknown) (unknown) 12/07/21 18:27 (units (unknown) date) unknown) (unknown) (no (unknown) (unknown) 12/07/21 19:40 (units (unknown) date) unknown) (unknown) (no (unknown) (unknown) 12/07/21 21:22 (units (unknown) date) unknown) (unknown) (no (unknown) (unknown) 0807 (units (unkno wn) date) unknown) (unknown) (no (unknown) (unknown) 16:32 12/07/21 (units (unknown) date) unknown) (unknown) (no (unknown) (unknown) 20:48 (units (unkno wn) date) unknown) (unknown) (no (unknown) (unknown) AF (paroxysmal (units (unknown) date) atrial unknown) fibrillation) (unknown) (no (unknown) (unknown) ALT (<35) IU/L (units (unknown) date) unknown) (unknown) (no (unknown) (unknown) ALT 68 H (<35) (units (unknown) date) IU/L unknown) (unknown) (no (unknown) (unknown) AST (14-36) IU/L (units (unknown) date) unknown) (unknown) (no (unknown) (unknown) AST 44 H (14-36) (units (unknown) date) IU/L unknown) (unknown) (no (unknown) (unknown) Abrasion, left (units (unknown) date) lower leg, unknown) initial encounter (unknown) (no (unknown) (unknown) Abscess and (units (un known) date) cellulitis of unknown) gluteal region (unknown) (no (unknown) (unknown) Acute UTI (units (unkn own) date) unknown) (unknown) (no (unknown) (unknown) Acute (units (unkno wn) date) hypokalemia unknown) (unknown) (no (unknown) (unknown) Acute narcotic (units (unknown) date) withdrawal unknown) without complication (unknown) (no (unknown) (unknown) Age/Sex: 66 / F (units (unknown) date) unknown) (unknown) (no (unknown) (unknown) Albumin (units (unkno wn) date) (3.5-5.0) g/dL unknown) (unknown) (no (unknown) (unknown) Albumin 4.4 (units (un known) date) (3.5-5.0) g/dL unknown) (unknown) (no (unknown) (unknown) Albumin/Globulin (units (unknown) date) Ratio (1.0-2.8) unknown) (unknown) (no (unknown) (unknown) Albumin/Globulin (units (unknown) date) Ratio 1.0 unknown) (1.0-2.8) (unknown) (no (unknown) (unknown) Alkaline (units (unkno wn) date) Phosphatase unknown) (38-126) U/L (unknown) (no (unknown) (unknown) Alkaline (units (unkno wn) date) Phosphatase 108 unknown) (38-126) U/L (unknown) (no (unknown) (unknown) Allergy/AdvReac (units (unknown) date) Type Severity unknown) Reaction Status Date / Time (unknown) (no (unknown) (unknown) Anemia (units (unkno wn) date) unknown) (unknown) (no (unknown) (unknown) BUN (7-17) mg/dL (units (unknown) date) unknown) (unknown) (no (unknown) (unknown) BUN 12 (7-17) (units ( unknown) date) mg/dL unknown) (unknown) (no (unknown) (unknown) BUN/Creatinine (units (unknown) date) Ratio (6-22) unknown) (unknown) (no (unknown) (unknown) BUN/Creatinine (units (unknown) date) Ratio 25.5 H unknown) (6-22) (unknown) (no (unknown) (unknown) Baso # (Auto) (units ( unknown) date) (0-100) /uL unknown) (unknown) (no (unknown) (unknown) Baso # (Auto) 0 (units (unknown) date) (0-100) /uL unknown) (unknown) (no (unknown) (unknown) Baso % (Auto) (units ( unknown) date) (0-2) % unknown) (unknown) (no (unknown) (unknown) Baso % (Auto) (units ( unknown) date) 0.2 (0-2) % unknown) (unknown) (no (unknown) (unknown) Bilateral lower (units (unknown) date) leg cellulitis unknown) (unknown) (no (unknown) (unknown) Bleeding from (units ( unknown) date) PICC line unknown) (unknown) (no (unknown) (unknown) Blood Culture (units ( unknown) date) Stat unknown) (unknown) (no (unknown) (unknown) Blood Pressure (units (unknown) date) 164/72 H 12/07/21 unknown) 16:32 (unknown) (no (unknown) (unknown) Blood Pressure (units (unknown) date) 164/72 H 191/103 unknown) H (unknown) (no (unknown) (unknown) Brother Mental (units (unknown) date) health problem unknown) (unknown) (no (unknown) (unknown) COVID19 -Nasal (units (unknown) date) RAPID/Pre-Proc unknown) Stat (unknown) (no (unknown) (unknown) Calcium (units (unkno wn) date) (8.4-10.2) mg/dL unknown) (unknown) (no (unknown) (unknown) Calcium 9.1 (units (un known) date) (8.4-10.2) mg/dL unknown) (unknown) (no (unknown) (unknown) Calcium Oxalate (units (unknown) date) Crystal unknown) (unknown) (no (unknown) (unknown) Calcium Oxalate (units (unknown) date) Crystal Few H unknown) (unknown) (no (unknown) (unknown) Carbon Dioxide (units (unknown) date) (22-32) mmol/L unknown) (unknown) (no (unknown) (unknown) Carbon Dioxide (units (unknown) date) 32 (22-32) mmol/L unknown) (unknown) (no (unknown) (unknown) Cat scratch of (units (unknown) date) face unknown) (unknown) (no (unknown) (unknown) Cellulitis (units (unk nown) date) unknown) (unknown) (no (unknown) (unknown) Chief Complaint: (units (unknown) date) Recheck/Abnormal unknown) Lab/Rx (unknown) (no (unknown) (unknown) Chloride (units (unkno wn) date) (98-107) mmol/L unknown) (unknown) (no (unknown) (unknown) Chloride 105 (units (u nknown) date) (98-107) mmol/L unknown) (unknown) (no (unknown) (unknown) 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 (unknown) (no (unknown) (unknown) Chronic (units (unkno wn) date) osteomyelitis unknown) involving multiple sites (unknown) (no (unknown) (unknown) Chronic skin (units (u nknown) date) ulcer unknown) (unknown) (no (unknown) (unknown) Complete Blood (units (unknown) date) Count AUTO DIFF unknown) Stat (unknown) (no (unknown) (unknown) Comprehensive (units ( unknown) date) Metabolic Panel unknown) Stat (unknown) (no (unknown) (unknown) Contusion of (units (u nknown) date) left lower leg, unknown) initial encounter (unknown) (no (unknown) (unknown) Course (units (unkno wn) date) unknown) (unknown) (no (unknown) (unknown) Creatinine (units (unk nown) date) (0.52-1.04) mg/dL unknown) (unknown) (no (unknown) (unknown) Creatinine 0.47 (units (unknown) date) L (0.52-1.04) unknown) mg/dL (unknown) (no (unknown) (unknown) Cutaneous (units (unkn own) date) abscess of unknown) buttock (unknown) (no (unknown) (unknown) : 1955 (units (unknown) date) Acct:[id number] unknown) (unknown) (no (unknown) (unknown) Deep vein (units (unkn own) date) thrombosis unknown) (unknown) (no (unknown) (unknown) Departure (units (unkn own) date) unknown) (unknown) (no (unknown) (unknown) Discharge Plan (units (unknown) date) unknown) (unknown) (no (unknown) (unknown) Dizziness (units (unkn own) date) unknown) (unknown) (no (unknown) (unknown) ER Physician: (units ( unknown) date) Matthwe Mccormick unknown) D.O. (unknown) (no (unknown) (unknown) Eos # (Auto) (units (u nknown) date) (0-450) /uL unknown) (unknown) (no (unknown) (unknown) Eos # (Auto) 0 (units (unknown) date) (0-450) /uL unknown) (unknown) (no (unknown) (unknown) Eos % (Auto) (units (u nknown) date) (2-4) % unknown) (unknown) (no (unknown) (unknown) Eos % (Auto) 0.1 (units (unknown) date) L (2-4) % unknown) (unknown) (no (unknown) (unknown) Estimated GFR > (units (unknown) date) 60 (>60) mL/min unknown) (unknown) (no (unknown) (unknown) Estimated GFR (units ( unknown) date) (>60) mL/min unknown) (unknown) (no (unknown) (unknown) Exam (units (unkno wn) date) unknown) (unknown) (no (unknown) (unknown) Fall (units (unkno wn) date) unknown) (unknown) (no (unknown) (unknown) Family History (units (unknown) date) (Reviewed unknown) 11/20/21 @ 14:27 by Elena Hamilton [facility]) (unknown) (no (unknown) (unknown) General (units (unkno wn) date) unknown) (unknown) (no (unknown) (unknown) GenericComposite (units (unknown) date) [Plt Count unknown) (150-400) X10^3/uL ] (unknown) (no (unknown) (unknown) GenericComposite (units (unknown) date) [Plt Count 214 unknown) (150-400) X10^3/uL ] (unknown) (no (unknown) (unknown) GenericComposite (units (unknown) date) [RBC (4.0-5.2) unknown) X10^6/uL ] (unknown) (no (unknown) (unknown) GenericComposite (units (unknown) date) [RBC 4.01 unknown) (4.0-5.2) X10^6/uL ] (unknown) (no (unknown) (unknown) GenericComposite (units (unknown) date) [WBC (4.5-11.0) unknown) X10^3/uL ] (unknown) (no (unknown) (unknown) GenericComposite (units (unknown) date) [WBC 8.1 unknown) (4.5-11.0) X10^3/uL ] (unknown) (no (unknown) (unknown) Globulin (units (unkno wn) date) (1.7-4.1) g/dL unknown) (unknown) (no (unknown) (unknown) Globulin 4.2 H (units (unknown) date) (1.7-4.1) g/dL unknown) (unknown) (no (unknown) (unknown) Glucose (80-110) (units (unknown) date) mg/dL unknown) (unknown) (no (unknown) (unknown) Glucose 90 (units (unk nown) date) (80-110) mg/dL unknown) (unknown) (no (unknown) (unknown) Grandfather (units (un known) date) Cancer unknown) (unknown) (no (unknown) (unknown) HPI - (units (unkno wn) date) Recheck/Abnormal unknown) Lab/Rx (unknown) (no (unknown) (unknown) Hct (36-46) % (units ( unknown) date) unknown) (unknown) (no (unknown) (unknown) Hct 36.9 (36-46) (units (unknown) date) % unknown) (unknown) (no (unknown) (unknown) Hematoma of left (units (unknown) date) lower extremity unknown) (unknown) (no (unknown) (unknown) Hemiparesis (units (un known) date) unknown) (unknown) (no (unknown) (unknown) Hepatitis C (units (un known) date) () unknown) (unknown) (no (unknown) (unknown) Hgb (12.0-16.0) (units (unknown) date) g/dL unknown) (unknown) (no (unknown) (unknown) Hgb 12.5 (units (unkno wn) date) (12.0-16.0) g/dL unknown) (unknown) (no (unknown) (unknown) Neo Pritchard MD (units (unknown) date) [Primary Care unknown) Provider] - (unknown) (no (unknown) (unknown) Initial Vital (units ( unknown) date) Signs unknown) (unknown) (no (unknown) (unknown) Initial Vital (units ( unknown) date) Signs: unknown) (unknown) (no (unknown) (unknown) Lab Data (units (unkno wn) date) unknown) (unknown) (no (unknown) (unknown) Labs: (units (unkno wn) date) unknown) (unknown) (no (unknown) (unknown) Lactate (units (unkno wn) date) (0.7-2.1) mmol/L unknown) (unknown) (no (unknown) (unknown) Lactate 1.1 (units (un known) date) (0.7-2.1) mmol/L unknown) (unknown) (no (unknown) (unknown) Lactate (Lactic (units (unknown) date) Acid) Stat unknown) (unknown) (no (unknown) (unknown) Left leg (units (unkno wn) date) cellulitis unknown) (unknown) (no (unknown) (unknown) Lymph # (Auto) (units (unknown) date) (9421-8116) /uL unknown) (unknown) (no (unknown) (unknown) Lymph # (Auto) (units (unknown) date) 1400 (0246-3696) unknown) /uL (unknown) (no (unknown) (unknown) Lymph % (Auto) (units (unknown) date) (25-40) % unknown) (unknown) (no (unknown) (unknown) Lymph % (Auto) (units (unknown) date) 17.4 L (25-40) % unknown) (unknown) (no (unknown) (unknown) MCH (26-34) PG (units (unknown) date) unknown) (unknown) (no (unknown) (unknown) MCH 31.1 (26-34) (units (unknown) date) PG unknown) (unknown) (no (unknown) (unknown) MCHC (30-36) % (units (unknown) date) unknown) (unknown) (no (unknown) (unknown) MCHC 33.8 (units (unkn own) date) (30-36) % unknown) (unknown) (no (unknown) (unknown) MCV (80-100) fL (units (unknown) date) unknown) (unknown) (no (unknown) (unknown) MCV 91.9 (units (unkno wn) date) (80-100) fL unknown) (unknown) (no (unknown) (unknown) MDM - (units (unkno wn) date) Recheck/Abnormal unknown) Lab/Rx (unknown) (no (unknown) (unknown) Measles (units (unkno wn) date) unknown) (unknown) (no (unknown) (unknown) Medical History (units (unknown) date) (Updated 12/07/21 unknown) @ 00:00 by ) (unknown) (no (unknown) (unknown) Mode of arrival: (units (unknown) date) EMS unknown) (unknown) (no (unknown) (unknown) Jerome # (Auto) (units ( unknown) date) (0-900) /uL unknown) (unknown) (no (unknown) (unknown) Jerome # (Auto) (units ( unknown) date) 600 (0-900) /uL unknown) (unknown) (no (unknown) (unknown) Jerome % (Auto) (units ( unknown) date) (3-14) % unknown) (unknown) (no (unknown) (unknown) Jerome % (Auto) (units ( unknown) date) 6.9 (3-14) % unknown) (unknown) (no (unknown) (unknown) 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) (unknown) (no (unknown) (unknown) Multiple falls (units (unknown) date) unknown) (unknown) (no (unknown) (unknown) Neut # (Auto) (units ( unknown) date) (3733-9133) /uL unknown) (unknown) (no (unknown) (unknown) Neut # (Auto) (units ( unknown) date) 6100 (9060-4146) unknown) /uL (unknown) (no (unknown) (unknown) Neut % (Auto) (units ( unknown) date) (50-75) % unknown) (unknown) (no (unknown) (unknown) Neut % (Auto) (units ( unknown) date) 75.4 H (50-75) % unknown) (unknown) (no (unknown) (unknown) No Action (units (unkn own) date) unknown) (unknown) (no (unknown) (unknown) Ordered: (units (unkno wn) date) unknown) (unknown) (no (unknown) (unknown) Orders (units (unkno wn) date) unknown) (unknown) (no (unknown) (unknown) Oxygen Delivery (units (unknown) date) Method 12/07/21 unknown) 16:32 (unknown) (no (unknown) (unknown) Oxygen Delivery (units (unknown) date) Method Room Air unknown) Room Air (unknown) (no (unknown) (unknown) PICC (units (unkno wn) date) (peripherally unknown) inserted central catheter) in place (unknown) (no (unknown) (unknown) Paraplegia (units (unk nown) date) (02/14/16) unknown) (unknown) (no (unknown) (unknown) Paraplegic (units (unk nown) date) spinal paralysis unknown) (unknown) (no (unknown) (unknown) Patient History (units (unknown) date) unknown) (unknown) (no (unknown) (unknown) Patient: (units (unkno wn) date) Karina Diallo MR#: unknown) [id number] (unknown) (no (unknown) (unknown) Penicillins (units (un known) date) Allergy Unknown unknown) Verified 11/28/21 07:23 (unknown) (no (unknown) (unknown) Post-op bleeding (units (unknown) date) unknown) (unknown) (no (unknown) (unknown) Potassium (units (unkn own) date) (3.4-5.1) mmol/L unknown) (unknown) (no (unknown) (unknown) Potassium 3.9 (units ( unknown) date) (3.4-5.1) mmol/L unknown) (unknown) (no (unknown) (unknown) Prescriptions: (units (unknown) date) unknown) (unknown) (no (unknown) (unknown) Pressure ulcer (units (unknown) date) of contiguous unknown) site of back, buttock and hip, stage 2 (unknown) (no (unknown) (unknown) Pressure ulcer (units (unknown) date) of left thigh unknown) (unknown) (no (unknown) (unknown) Pulse Oximetry (units (unknown) date) 96 unknown) (unknown) (no (unknown) (unknown) Pulse Rate 102 H (units (unknown) date) 12/07/21 16:32 unknown) (unknown) (no (unknown) (unknown) Pulse Rate 102 H (units (unknown) date) 61 unknown) (unknown) (no (unknown) (unknown) RDW (11.6-14.8) (units (unknown) date) % unknown) (unknown) (no (unknown) (unknown) RDW 13.6 (units (unkno wn) date) (11.6-14.8) % unknown) (unknown) (no (unknown) (unknown) Referrals: (units (unk nown) date) unknown) (unknown) (no (unknown) (unknown) Related Data (units (u nknown) date) unknown) (unknown) (no (unknown) (unknown) Respiratory Rate (units (unknown) date) 20 12/07/21 16:32 unknown) (unknown) (no (unknown) (unknown) Respiratory Rate (units (unknown) date) 20 14 unknown) (unknown) (no (unknown) (unknown) Result diagrams: (units (unknown) date) unknown) (unknown) (no (unknown) (unknown) Retention of (units (u nknown) date) urine, unknown) unspecified (unknown) (no (unknown) (unknown) SARS-CoV-2 (PCR) (units (unknown) date) (Negative) unknown) (unknown) (no (unknown) (unknown) SARS-CoV-2 (PCR) (units (unknown) date) Negative unknown) (Negative) (unknown) (no (unknown) (unknown) Seasonal (units (unkno wn) date) allergies unknown) (unknown) (no (unknown) (unknown) Signed By: (units (unk nown) date) unknown) (unknown) (no (unknown) (unknown) Sister Mental (units ( unknown) date) health problem unknown) (unknown) (no (unknown) (unknown) Skin ulcer of (units ( unknown) date) ankle unknown) (unknown) (no (unknown) (unknown) Smoking Status: (units (unknown) date) Former smoker unknown) (unknown) (no (unknown) (unknown) Smoking Status: (units (unknown) date) Former smoker unknown) (unknown) (no (unknown) (unknown) Social History (units (unknown) date) (Reviewed unknown) 11/18/21 @ 05:16 by Noah Jessica DO) (unknown) (no (unknown) (unknown) Sodium (137-145) (units (unknown) date) mmol/L unknown) (unknown) (no (unknown) (unknown) Sodium 141 (units (unk nown) date) (137-145) mmol/L unknown) (unknown) (no (unknown) (unknown) Source: EMS (units (un known) date) unknown) (unknown) (no (unknown) (unknown) Stated (units (unkno wn) date) Complaint: Body unknown) Aches (unknown) (no (unknown) (unknown) Substance Use (units ( unknown) date) Type: marijuana unknown) (unknown) (no (unknown) (unknown) Temperature 98.7 (units (unknown) date) F 12/07/21 16:32 unknown) (unknown) (no (unknown) (unknown) Temperature 98.7 (units (unknown) date) F 97.9 F unknown) (unknown) (no (unknown) (unknown) Time Seen by (units (u nknown) date) Provider: unknown) 12/07/21 19:51 (unknown) (no (unknown) (unknown) Toe laceration (units (unknown) date) unknown) (unknown) (no (unknown) (unknown) Total Bilirubin (units (unknown) date) (0.2-1.3) mg/dL unknown) (unknown) (no (unknown) (unknown) Total Bilirubin (units (unknown) date) 0.4 (0.2-1.3) unknown) mg/dL (unknown) (no (unknown) (unknown) Total Protein (units ( unknown) date) (6.3-8.2) g/dL unknown) (unknown) (no (unknown) (unknown) Total Protein (units ( unknown) date) 8.6 H (6.3-8.2) unknown) g/dL (unknown) (no (unknown) (unknown) UA Complete (units (un known) date) [Urinalysis and unknown) Microscopic] Stat (unknown) (no (unknown) (unknown) UTI (urinary (units (u nknown) date) tract infection) unknown) (unknown) (no (unknown) (unknown) UTI (urinary (units (u nknown) date) tract infection) unknown) due to Enterococcus (unknown) (no (unknown) (unknown) Ur Culture (units (unk nown) date) Indicated? unknown) (unknown) (no (unknown) (unknown) Ur Culture (units (unk nown) date) Indicated? unknown) Specimen cultured (unknown) (no (unknown) (unknown) Ur Leukocyte (units (u nknown) date) Esterase unknown) (NEGATIVE) (unknown) (no (unknown) (unknown) Ur Leukocyte (units (u nknown) date) Esterase 3+ H unknown) (NEGATIVE) (unknown) (no (unknown) (unknown) Ur Renal (units (unkno wn) date) Epithelial Cell unknown) (0-1/HPF) (unknown) (no (unknown) (unknown) Ur Renal (units (unkno wn) date) Epithelial Cell unknown) 0-1/hpf (0-1/HPF) (unknown) (no (unknown) (unknown) Ur Specific (units (un known) date) Duarte unknown) (1.000-1.035) (unknown) (no (unknown) (unknown) Ur Specific (units (un known) date) Duarte 1.015 unknown) (1.000-1.035) (unknown) (no (unknown) (unknown) Ur Squamous (units (un known) date) Epith Cells unknown) (0-5/HPF) (unknown) (no (unknown) (unknown) Ur Squamous (units (un known) date) Epith Cells 1-5 unknown) /hpf (0-5/HPF) (unknown) (no (unknown) (unknown) Ur Transition (units ( unknown) date) Epith Cell unknown) (0-5/HPF) (unknown) (no (unknown) (unknown) Ur Transition (units ( unknown) date) Epith Cell unknown) 1-5/hpf (0-5/HPF) (unknown) (no (unknown) (unknown) Urine Appearance (units (unknown) date) unknown) (unknown) (no (unknown) (unknown) Urine Appearance (units (unknown) date) Clear unknown) (unknown) (no (unknown) (unknown) Urine Bacteria (units (unknown) date) (None) unknown) (unknown) (no (unknown) (unknown) Urine Bacteria (units (unknown) date) Many (>30) H unknown) (None) (unknown) (no (unknown) (unknown) Urine Bilirubin (units (unknown) date) (NEGATIVE) unknown) (unknown) (no (unknown) (unknown) Urine Bilirubin (units (unknown) date) Negative unknown) (NEGATIVE) (unknown) (no (unknown) (unknown) Urine Color (units (un known) date) unknown) (unknown) (no (unknown) (unknown) Urine Color (units (un known) date) Yellow unknown) (unknown) (no (unknown) (unknown) Urine Culture (units ( unknown) date) Stat unknown) (unknown) (no (unknown) (unknown) Urine Glucose (units ( unknown) date) (UA) (Negative) unknown) g/dL (unknown) (no (unknown) (unknown) Urine Glucose (units ( unknown) date) (UA) Negative unknown) (Negative) g/dL (unknown) (no (unknown) (unknown) Urine Ketones (units ( unknown) date) (NEGATIVE) unknown) (unknown) (no (unknown) (unknown) Urine Ketones (units ( unknown) date) Trace H unknown) (NEGATIVE) (unknown) (no (unknown) (unknown) Urine Nitrate (units ( unknown) date) (Negative) unknown) (unknown) (no (unknown) (unknown) Urine Nitrate (units ( unknown) date) Negative unknown) (Negative) (unknown) (no (unknown) (unknown) Urine Occult (units (u nknown) date) Blood (Negative) unknown) (unknown) (no (unknown) (unknown) Urine Occult (units (u nknown) date) Blood Trace-lysed unknown) (Negative) (unknown) (no (unknown) (unknown) Urine Protein (units ( unknown) date) (Negative) unknown) (unknown) (no (unknown) (unknown) Urine Protein (units ( unknown) date) Negative unknown) (Negative) (unknown) (no (unknown) (unknown) Urine RBC (units (unkn own) date) (0-5/HPF) unknown) (unknown) (no (unknown) (unknown) Urine RBC (units (unkn own) date) 1-5/hpf (0-5/HPF) unknown) (unknown) (no (unknown) (unknown) Urine (units (unkno wn) date) Urobilinogen unknown) (0.2) E.U./dL (unknown) (no (unknown) (unknown) Urine (units (unkno wn) date) Urobilinogen 0.2 unknown) (0.2) E.U./dL (unknown) (no (unknown) (unknown) Urine WBC (units (unkn own) date) (0-5/HPF) unknown) (unknown) (no (unknown) (unknown) Urine WBC (units (unkn own) date) 10-30/hpf H unknown) (0-5/HPF) (unknown) (no (unknown) (unknown) Urine pH (units (unkno wn) date) (4.5-8.0) unknown) (unknown) (no (unknown) (unknown) Urine pH 7.0 (units (u nknown) date) (4.5-8.0) unknown) (unknown) (no (unknown) (unknown) Vital Signs (units (un known) date) unknown) (unknown) (no (unknown) (unknown) Vital signs: (units (u nknown) date) unknown) (unknown) (no (unknown) (unknown) Wound of sacral (units (unknown) date) region, unknown) subsequent encounter (08/29/15) (unknown) (no (unknown) (unknown) XR foot LT min (units (unknown) date) 3V Stat unknown) (unknown) (no (unknown) (unknown) [Embedded Image (units (unknown) date) Not Available] unknown) (unknown) (no (unknown) (unknown) alcohol intake (units (unknown) date) frequency: unknown) holidays/special occasions only (unknown) (no (unknown) (unknown) alcohol intake: (units (unknown) date) never unknown) (unknown) (no (unknown) (unknown) cefpodoxime 200 (units (unknown) date) mg tablet 200 mg unknown) PO Q12H #14 tabs 11/28/21 (unknown) (no (unknown) (unknown) chlorhexidine (units ( unknown) date) Allergy Mild unknown) ITCHING Verified 11/28/21 07:23 (unknown) (no (unknown) (unknown) ertapenem (units (unkn own) date) Allergy Severe unknown) SEIZURES Verified 11/28/21 07:23 (unknown) (no (unknown) (unknown) household (units (unkn own) date) members: none unknown) (unknown) (no (unknown) (unknown) hydrocodone 5 (units ( unknown) date) mg-acetaminophen unknown) 325 1 tab PO Q6H PRN pain #10 tabs 11/28/21 (unknown) (no (unknown) (unknown) lactose AdvReac (units (unknown) date) Unknown Verified unknown) 11/28/21 07:23 (unknown) (no (unknown) (unknown) levothyroxine 50 (units (unknown) date) mcg tablet 50 mcg unknown) PO DAILY #30 tabs 10/12/19 (unknown) (no (unknown) (unknown) linezolid (units (unkn own) date) [LINEZOLID] unknown) Allergy Mild Verified 11/28/21 07:23 (unknown) (no (unknown) (unknown) metronidazole (units ( unknown) date) 500 mg tablet 500 unknown) mg .Route .COMPLEX 03/17/20 (unknown) (no (unknown) (unknown) mg tablet (units (unkn own) date) unknown) (unknown) (no (unknown) (unknown) oxybutynin (units (unk nown) date) chloride 5 mg unknown) tablet 10 mg PO TID 03/17/20 (unknown) (no (unknown) (unknown) sennosides 8.6 (units (unknown) date) mg tablet (senna) unknown) 17.2 mg PO BEDTIME #60 tabs 03/17/20 Result panel 48 (unknown) (no (unknown) (unknown) (no value) (units (unk nown) date) unknown) (unknown) (no (unknown) (unknown) Radiologist's (units ( unknown) date) Impression: unknown) (unknown) (no (unknown) (unknown) *Please continue (units (unknown) date) to take your unknown) regular medications as directed. (unknown) (no (unknown) (unknown) Date of Service: (units (unknown) date) 12/07/21 unknown) (unknown) (no (unknown) (unknown) (no value) (units (unk nown) date) unknown) (unknown) (no (unknown) (unknown) <Electronically (units (unknown) date) signed by Matthew unknownKailash Mccormick D.O.> (unknown) (no (unknown) (unknown) 12/07/21 17:26 (units (unknown) date) unknown) (unknown) (no (unknown) (unknown) 12/08/21 0406 (units ( unknown) date) unknown) (unknown) (no (unknown) (unknown) 1 tab PO Q6H PRN (units (unknown) date) (Reason: pain) Qty: unknown) 10 0RF (unknown) (no (unknown) (unknown) 10 mg PO TID (units (u nknown) date) unknown) (unknown) (no (unknown) (unknown) [address] [place] [address] (units (unknown) date) unknown) (unknown) (no (unknown) (unknown) 17.2 mg PO BEDTIME (units (unknown) date) Qty: 60 5RF unknown) (unknown) (no (unknown) (unknown) 200 mg PO Q12H (units (unknown) date) Qty: 14 0RF unknown) (unknown) (no (unknown) (unknown) 50 mcg PO DAILY (units (unknown) date) Qty: 30 5RF unknown) (unknown) (no (unknown) (unknown) 500 mg .ROUTE (units ( unknown) date) .COMPLEX unknown) (unknown) (no (unknown) (unknown) 500 mg PO BID Qty: (units (unknown) date) 20 0RF unknown) (unknown) (no (unknown) (unknown) 500 mg crush and (units (unknown) date) apply topically to unknown) wound twice weekly; (unknown) (no (unknown) (unknown) Allergies (units (unkn own) date) unknown) (unknown) (no (unknown) (unknown) [place], [place] (units ( unknown) date) [address] unknown) (unknown) (no (unknown) (unknown) Close (units (unkno wn) date) unknown) (unknown) (no (unknown) (unknown) Diabetes mellitus (units (unknown) date) unknown) (unknown) (no (unknown) (unknown) Documented By: DKB (units (unknown) date) unknown) (unknown) (no (unknown) (unknown) ED Orders (units (unkn own) date) unknown) (unknown) (no (unknown) (unknown) Emergency Report (units (unknown) date) unknown) (unknown) (no (unknown) (unknown) Home Medications (units (unknown) date) unknown) (unknown) (no (unknown) (unknown) [facility] (units (unknown) date) unknown) (unknown) (no (unknown) (unknown) [facility] (units (unknown) date) [address] unknown) [place] [address] (unknown) (no (unknown) (unknown) Lab Results (units (un known) date) unknown) (unknown) (no (unknown) (unknown) Last Admin: (units (un known) date) 12/07/21 21:42 unknown) Dose: 1 tab (unknown) (no (unknown) (unknown) Last Admin: (units (un known) date) 12/07/21 21:42 unknown) Dose: 500 mg (unknown) (no (unknown) (unknown) Launch?Image (units (u nknown) date) unknown) (unknown) (no (unknown) (unknown) Previous Rx's (units ( unknown) date) unknown) (unknown) (no (unknown) (unknown) Rx Instructions: (units (unknown) date) unknown) (unknown) (no (unknown) (unknown) Signed (units (unkno wn) date) unknown) (unknown) (no (unknown) (unknown) Stop: 12/07/21 (units (unknown) date) 21:26 unknown) (unknown) (no (unknown) (unknown) Vital Signs - 8 hr (units (unknown) date) unknown) (unknown) (no (unknown) (unknown) XRay Report (units (un known) date) unknown) (unknown) (no (unknown) (unknown) [ ] New medication (units (unknown) date) written as a paper unknown) prescription (unknown) (no (unknown) (unknown) [ ] No new (units (unk nown) date) medications given unknown) (unknown) (no (unknown) (unknown) [x ] New (units (unkno wn) date) medication unknown) prescriptions sent to your pharmacy: [[facility] ] (unknown) (no (unknown) (unknown) must administer (units (unknown) date) with a meal/food unknown) (unknown) (no (unknown) (unknown) (no value) (units (unk nown) date) unknown) (unknown) (no (unknown) (unknown) 12/07/21 12/07/21 (units (unknown) date) 12/07/21 unknown) Range/Units (unknown) (no (unknown) (unknown) 12/07/21 12/07/21 (units (unknown) date) Range/Units unknown) (unknown) (no (unknown) (unknown) 17:07 17:26 17:26 (units (unknown) date) unknown) (unknown) (no (unknown) (unknown) 17:26 19:40 (units (un known) date) unknown) (unknown) (no (unknown) (unknown) cefpodoxime 200 mg (units (unknown) date) tablet unknown) (unknown) (no (unknown) (unknown) ciprofloxacin HCl (units (unknown) date) [Cipro] 500 mg unknown) tablet (unknown) (no (unknown) (unknown) hydrocodone-acetam (units (unknown) date) inophen 5-325 mg unknown) tablet (unknown) (no (unknown) (unknown) levothyroxine (units ( unknown) date) [Synthroid] 50 mcg unknown) tablet (unknown) (no (unknown) (unknown) metronidazole 500 (units (unknown) date) mg tablet unknown) (unknown) (no (unknown) (unknown) oxybutynin (units (unk nown) date) chloride 5 mg unknown) tablet (unknown) (no (unknown) (unknown) sennosides [senna] (units (unknown) date) 8.6 mg tablet unknown) (unknown) (no (unknown) (unknown) 12/07/21 (units (unkno wn) date) unknown) (unknown) (no (unknown) (unknown) Acute UTI, Chronic (units (unknown) date) wound of extremity unknown) (unknown) (no (unknown) (unknown) Medication (units (unk nown) date) Instructions unknown) Recorded (unknown) (no (unknown) (unknown) Medication (units (unk nown) date) Instructions unknown) Recorded Confirmed (unknown) (no (unknown) (unknown) (Cipro) (units (unkno wn) date) unknown) (unknown) (no (unknown) (unknown) (Synthroid) (units (un known) date) unknown) (unknown) (no (unknown) (unknown) *As we discussed, (units (unknown) date) I sent a wound care unknown) referral on your behalf to help manage (unknown) (no (unknown) (unknown) *If you do not (units (unknown) date) have a primary care unknown) provider please contact the [facility] (unknown) (no (unknown) (unknown) *Please follow up (units (unknown) date) with your primary unknown) care provider in 2-3 days, call for an (unknown) (no (unknown) (unknown) *Return to (units (unk nown) date) Emergency unknown) Department if you should have any new, worsening or (unknown) (no (unknown) (unknown) *What to do: (units (u nknown) date) unknown) (unknown) (no (unknown) (unknown) *You have been (units (unknown) date) diagnosed with [UTI unknown) and multiple chronic wounds, on buttocks and (unknown) (no (unknown) (unknown) - (units (unkno wn) date) unknown) (unknown) (no (unknown) (unknown) 05/27/19 (units (unkno wn) date) unknown) (unknown) (no (unknown) (unknown) 07/11/18 (units (unkno wn) date) unknown) (unknown) (no (unknown) (unknown) 08/28/18 (units (unkno wn) date) unknown) (unknown) (no (unknown) (unknown) 09/26/17 (units (unkno wn) date) unknown) (unknown) (no (unknown) (unknown) 09/27/18 (units (unkno wn) date) unknown) (unknown) (no (unknown) (unknown) 09/28/18 (units (unkno wn) date) unknown) (unknown) (no (unknown) (unknown) 10/11/19 (units (unkno wn) date) unknown) (unknown) (no (unknown) (unknown) 10/23/18 (units (unkno wn) date) unknown) (unknown) (no (unknown) (unknown) 10/24/18 (units (unkno wn) date) unknown) (unknown) (no (unknown) (unknown) 10/31/17 (units (unkno wn) date) unknown) (unknown) (no (unknown) (unknown) 11/01/17 (units (unkno wn) date) unknown) (unknown) (no (unknown) (unknown) 11/04/17 (units (unkno wn) date) unknown) (unknown) (no (unknown) (unknown) 11/07/17 (units (unkno wn) date) unknown) (unknown) (no (unknown) (unknown) 11/08/17 (units (unkno wn) date) unknown) (unknown) (no (unknown) (unknown) 11/09/17 (units (unkno wn) date) unknown) (unknown) (no (unknown) (unknown) 11/11/19 (units (unkno wn) date) unknown) (unknown) (no (unknown) (unknown) 11/28/21 (units (unkno wn) date) unknown) (unknown) (no (unknown) (unknown) 12/04/18 (units (unkno wn) date) unknown) (unknown) (no (unknown) (unknown) 12/07/21 (units (unkno wn) date) unknown) (unknown) (no (unknown) (unknown) 12/07/21 19:40 (units (unknown) date) unknown) (unknown) (no (unknown) (unknown) 12/07/21 21:22 (units (unknown) date) unknown) (unknown) (no (unknown) (unknown) 12/07/21 21:43 (units (unknown) date) unknown) (unknown) (no (unknown) (unknown) 12/25/18 (units (unkno wn) date) unknown) (unknown) (no (unknown) (unknown) 0807 (units (unkno wn) date) unknown) (unknown) (no (unknown) (unknown) 01/15/19 (units (unkno wn) date) unknown) (unknown) (no (unknown) (unknown) 01/16/19 (units (unkno wn) date) unknown) (unknown) (no (unknown) (unknown) 1. No definite (units (unknown) date) radiographic unknown) evidence of osteomyelitis but evaluation is limited (unknown) (no (unknown) (unknown) 02/18/19 (units (unkno wn) date) unknown) (unknown) (no (unknown) (unknown) 02/21/19 (units (unkno wn) date) unknown) (unknown) (no (unknown) (unknown) 02/23/19 (units (unkno wn) date) unknown) (unknown) (no (unknown) (unknown) 03/07/18 (units (unkno wn) date) unknown) (unknown) (no (unknown) (unknown) 03/22/18 (units (unkno wn) date) unknown) (unknown) (no (unknown) (unknown) 12 point review of (units (unknown) date) systems is negative unknown) except for those stated above (unknown) (no (unknown) (unknown) 04/19/20 (units (unkno wn) date) unknown) (unknown) (no (unknown) (unknown) 04/21/18 (units (unkno wn) date) unknown) (unknown) (no (unknown) (unknown) 04/22/20 (units (unkno wn) date) unknown) (unknown) (no (unknown) (unknown) 04/24/20 (units (unkno wn) date) unknown) (unknown) (no (unknown) (unknown) 20:48 (units (unkno wn) date) unknown) (unknown) (no (unknown) (unknown) 66-year-old female (units (unknown) date) smoker with history unknown) of quadriplegia and chronic Stephens (unknown) (no (unknown) (unknown) ? (units (unkno wn) date) unknown) (unknown) (no (unknown) (unknown) AF (paroxysmal (units (unknown) date) atrial unknown) fibrillation) (unknown) (no (unknown) (unknown) ALT (<35) IU/L (units (unknown) date) unknown) (unknown) (no (unknown) (unknown) ALT 68 H (<35) (units (unknown) date) IU/L unknown) (unknown) (no (unknown) (unknown) AST (14-36) IU/L (units (unknown) date) unknown) (unknown) (no (unknown) (unknown) AST 44 H (14-36) (units (unknown) date) IU/L unknown) (unknown) (no (unknown) (unknown) Abdomen/Pelvis CT (units (unknown) date) (Signed) unknown) (unknown) (no (unknown) (unknown) Abrasion, left (units (unknown) date) lower leg, initial unknown) encounter (unknown) (no (unknown) (unknown) Abscess and (units (un known) date) cellulitis of unknown) gluteal region (unknown) (no (unknown) (unknown) Accession Number: (units (unknown) date) [id number] ?? unknown) (unknown) (no (unknown) (unknown) Acct:[id number] (units (unknown) date) unknown) (unknown) (no (unknown) (unknown) Activity (units (unkno wn) date) Restrictions/Additi unknown) onal Instructions: (unknown) (no (unknown) (unknown) Acute UTI (units (unkn own) date) unknown) (unknown) (no (unknown) (unknown) Acute hypokalemia (units (unknown) date) unknown) (unknown) (no (unknown) (unknown) Acute narcotic (units (unknown) date) withdrawal without unknown) complication (unknown) (no (unknown) (unknown) Age/Sex: 66 / F (units (unknown) date) unknown) (unknown) (no (unknown) (unknown) Age/Sex: 66 / F (units (unknown) date) unknown) (unknown) (no (unknown) (unknown) Albumin (3.5-5.0) (units (unknown) date) g/dL unknown) (unknown) (no (unknown) (unknown) Albumin 4.4 (units (un known) date) (3.5-5.0) g/dL unknown) (unknown) (no (unknown) (unknown) Albumin/Globulin (units (unknown) date) Ratio (1.0-2.8) unknown) (unknown) (no (unknown) (unknown) Albumin/Globulin (units (unknown) date) Ratio 1.0 (1.0-2.8) unknown) (unknown) (no (unknown) (unknown) Alkaline (units (unkno wn) date) Phosphatase unknown) (38-126) U/L (unknown) (no (unknown) (unknown) Alkaline (units (unkno wn) date) Phosphatase 108 unknown) (38-126) U/L (unknown) (no (unknown) (unknown) Allergy/AdvReac (units (unknown) date) Type Severity unknown) Reaction Status Date / Time (unknown) (no (unknown) (unknown) Anemia (units (unkno wn) date) unknown) (unknown) (no (unknown) (unknown) Approved by: (units (u nknown) date) Silviano Hathaway, unknown) Ani on 12/07/2021 at 22:11 ? (unknown) (no (unknown) (unknown) BACK: Nontender (units (unknown) date) without deformity unknown) or crepitance. No flank tenderness. (unknown) (no (unknown) (unknown) BUN (7-17) mg/dL (units (unknown) date) unknown) (unknown) (no (unknown) (unknown) BUN 12 (7-17) (units ( unknown) date) mg/dL unknown) (unknown) (no (unknown) (unknown) BUN/Creatinine (units (unknown) date) Ratio (6-22) unknown) (unknown) (no (unknown) (unknown) BUN/Creatinine (units (unknown) date) Ratio 25.5 H (6-22) unknown) (unknown) (no (unknown) (unknown) Baso # (Auto) (units ( unknown) date) (0-100) /uL unknown) (unknown) (no (unknown) (unknown) Baso # (Auto) 0 (units (unknown) date) (0-100) /uL unknown) (unknown) (no (unknown) (unknown) Baso % (Auto) (units ( unknown) date) (0-2) % unknown) (unknown) (no (unknown) (unknown) Baso % (Auto) 0.2 (units (unknown) date) (0-2) % unknown) (unknown) (no (unknown) (unknown) Bilateral lower (units (unknown) date) leg cellulitis unknown) (unknown) (no (unknown) (unknown) Bleeding from PICC (units (unknown) date) line unknown) (unknown) (no (unknown) (unknown) Blood Pressure (units (unknown) date) 164/72 H 12/07/21 unknown) 16:32 (unknown) (no (unknown) (unknown) Blood Pressure (units (unknown) date) 191/103 H unknown) (unknown) (no (unknown) (unknown) Bone Scan Nuclear (units (unknown) date) Medicine (Signed) unknown) (unknown) (no (unknown) (unknown) Bones:? There is (units (unknown) date) marked unknown) demineralization limiting evaluation.? Postsurgical (unknown) (no (unknown) (unknown) Brother Mental (units (unknown) date) health problem unknown) (unknown) (no (unknown) (unknown) CARDIOVASCULAR: (units (unknown) date) Denies chest pain, unknown) palpitations, orthopnea, edema, (unknown) (no (unknown) (unknown) CARDIOVASCULAR: (units (unknown) date) Regular rate and unknown) rhythm without murmurs, gallops, or rubs. (unknown) (no (unknown) (unknown) COMPARISON:? (units (u nknown) date) [facility], unknown) CR, XR FOOT LT MIN 3V, 11/11/2019, 8:16. (unknown) (no (unknown) (unknown) CT Scanning (units (un known) date) Biopsy/Drainage unknown) (Signed) (unknown) (no (unknown) (unknown) Calcaneus X-Ray (units (unknown) date) (Signed) unknown) (unknown) (no (unknown) (unknown) Calcium (8.4-10.2) (units (unknown) date) mg/dL unknown) (unknown) (no (unknown) (unknown) Calcium 9.1 (units (un known) date) (8.4-10.2) mg/dL unknown) (unknown) (no (unknown) (unknown) Calcium Oxalate (units (unknown) date) Crystal unknown) (unknown) (no (unknown) (unknown) Calcium Oxalate (units (unknown) date) Crystal Few H unknown) (unknown) (no (unknown) (unknown) Collin,Donna (units (unknown) date) unknown) (unknown) (no (unknown) (unknown) Carbon Dioxide (units (unknown) date) (22-32) mmol/L unknown) (unknown) (no (unknown) (unknown) Carbon Dioxide 32 (units (unknown) date) (22-32) mmol/L unknown) (unknown) (no (unknown) (unknown) Cat scratch of (units (unknown) date) face unknown) (unknown) (no (unknown) (unknown) Cellulitis (units (unk nown) date) unknown) (unknown) (no (unknown) (unknown) Chest X-Ray (units (un known) date) (Signed) unknown) (unknown) (no (unknown) (unknown) Chief Complaint: (units (unknown) date) Recheck/Abnormal unknown) Lab/Rx (unknown) (no (unknown) (unknown) Chloride (98-107) (units (unknown) date) mmol/L unknown) (unknown) (no (unknown) (unknown) Chloride 105 (units (u nknown) date) (98-107) mmol/L unknown) (unknown) (no (unknown) (unknown) 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 (unknown) (no (unknown) (unknown) Chronic (units (unkno wn) date) osteomyelitis unknown) involving multiple sites (unknown) (no (unknown) (unknown) Chronic skin ulcer (units (unknown) date) unknown) (unknown) (no (unknown) (unknown) Annelise Sargent (units (u nknown) date) unknown) (unknown) (no (unknown) (unknown) Clinical (units (unkno wn) date) Impression: unknown) (unknown) (no (unknown) (unknown) Consult to Wound (units (unknown) date) Care Stat unknown) (unknown) (no (unknown) (unknown) Contusion of left (units (unknown) date) lower leg, initial unknown) encounter (unknown) (no (unknown) (unknown) Course (units (unkno wn) date) unknown) (unknown) (no (unknown) (unknown) Creatinine (units (unk nown) date) (0.52-1.04) mg/dL unknown) (unknown) (no (unknown) (unknown) Creatinine 0.47 L (units (unknown) date) (0.52-1.04) mg/dL unknown) (unknown) (no (unknown) (unknown) Cutaneous abscess (units (unknown) date) of buttock unknown) (unknown) (no (unknown) (unknown) DI Result CC (units (u nknown) date) unknown) (unknown) (no (unknown) (unknown) : 1955 (units (unknown) date) Acct:[id number] unknown) (unknown) (no (unknown) (unknown) : 1955 (units (unknown) date) unknown) (unknown) (no (unknown) (unknown) Date of Service: (units (unknown) date) 12/07/21 unknown) (unknown) (no (unknown) (unknown) Deep vein (units (unkn own) date) thrombosis unknown) (unknown) (no (unknown) (unknown) Departure (units (unkn own) date) unknown) (unknown) (no (unknown) (unknown) Simona Khan (units (u nknown) date) unknown) (unknown) (no (unknown) (unknown) Dictated by: (units (u nknown) date) Silviano Hathaway, unknownKailash Law on 12/07/2021 at 22:10 ? ? (unknown) (no (unknown) (unknown) Discharge Plan (units (unknown) date) unknown) (unknown) (no (unknown) (unknown) Discontinued (units (u nknown) date) Medications unknown) (unknown) (no (unknown) (unknown) Dizziness (units (unkn own) date) unknown) (unknown) (no (unknown) (unknown) ENT: Nose without (units (unknown) date) bleeding, purulent unknown) drainage. Throat without erythema, (unknown) (no (unknown) (unknown) ER Physician: (units ( unknown) date) Matthew Mccormick D.O. unknown) (unknown) (no (unknown) (unknown) EXTREMITIES: No (units (unknown) date) edema or joint unknown) tenderness. Pressure sores on heels of both (unknown) (no (unknown) (unknown) EYES: Pupils equal (units (unknown) date) round and reactive. unknown) Extraocular motions intact. No scleral (unknown) (no (unknown) (unknown) Echocardiogram (units (unknown) date) Ultrasound (Signed) unknown) (unknown) (no (unknown) (unknown) Eos # (Auto) (units (u nknown) date) (0-450) /uL unknown) (unknown) (no (unknown) (unknown) Eos # (Auto) 0 (units (unknown) date) (0-450) /uL unknown) (unknown) (no (unknown) (unknown) Eos % (Auto) (2-4) (units (unknown) date) % unknown) (unknown) (no (unknown) (unknown) Eos % (Auto) 0.1 L (units (unknown) date) (2-4) % unknown) (unknown) (no (unknown) (unknown) Estimated GFR > 60 (units (unknown) date) (>60) mL/min unknown) (unknown) (no (unknown) (unknown) Estimated GFR (units ( unknown) date) (>60) mL/min unknown) (unknown) (no (unknown) (unknown) Exam (units (unkno wn) date) unknown) (unknown) (no (unknown) (unknown) Exam Narrative: (units (unknown) date) unknown) (unknown) (no (unknown) (unknown) Extremity x-ray (units (unknown) date) #1: unknown) (unknown) (no (unknown) (unknown) FINDINGS:? (units (unk nown) date) unknown) (unknown) (no (unknown) (unknown) Fall (units (unkno wn) date) unknown) (unknown) (no (unknown) (unknown) Family History (units (unknown) date) (Reviewed 12/08/21 unknown) @ 04:03 by Matthew Mccormick DO) (unknown) (no (unknown) (unknown) Femur X-Ray (units (un known) date) (Signed) unknown) (unknown) (no (unknown) (unknown) Foot MRI (units (unkno wn) date) (Addendum) unknown) (unknown) (no (unknown) (unknown) Foot X-Ray (units (unk nown) date) (Signed) unknown) (unknown) (no (unknown) (unknown) GASTROINTESTINAL: (units (unknown) date) Abdomen soft, unknown) non-tender, nondistended. (unknown) (no (unknown) (unknown) GASTROINTESTINAL: (units (unknown) date) Denies nausea, unknown) vomiting, abdominal pain, diarrhea, (unknown) (no (unknown) (unknown) GENERAL: See HPI (units (unknown) date) unknown) (unknown) (no (unknown) (unknown) GENERAL: 66] year (units (unknown) date) old patient appears unknown) stated age. Chronically ill, no obvious (unknown) (no (unknown) (unknown) : Denies (units (unk nown) date) dysuria, frequency, unknown) incontinence, hematuria, urinary retention. (unknown) (no (unknown) (unknown) General (units (unkno wn) date) unknown) (unknown) (no (unknown) (unknown) GenericComposite[P (units (unknown) date) lt Count (150-400) unknown) X10^3/uL ] (unknown) (no (unknown) (unknown) GenericComposite[P (units (unknown) date) lt Count 214 unknown) (150-400) X10^3/uL ] (unknown) (no (unknown) (unknown) GenericComposite[R (units (unknown) date) BC (4.0-5.2) unknown) X10^6/uL ] (unknown) (no (unknown) (unknown) GenericComposite[R (units (unknown) date) BC 4.01 (4.0-5.2) unknown) X10^6/uL ] (unknown) (no (unknown) (unknown) GenericComposite[W (units (unknown) date) BC (4.5-11.0) unknown) X10^3/uL ] (unknown) (no (unknown) (unknown) GenericComposite[W (units (unknown) date) BC 8.1 (4.5-11.0) unknown) X10^3/uL ] (unknown) (no (unknown) (unknown) Ghazanfari,Sherman (units (unknown) date) unknown) (unknown) (no (unknown) (unknown) Globulin (1.7-4.1) (units (unknown) date) g/dL unknown) (unknown) (no (unknown) (unknown) Globulin 4.2 H (units (unknown) date) (1.7-4.1) g/dL unknown) (unknown) (no (unknown) (unknown) Glucose (80-110) (units (unknown) date) mg/dL unknown) (unknown) (no (unknown) (unknown) Glucose 90 (units (un known) date) (80-110) mg/dL unknown) (unknown) (no (unknown) (unknown) Grandfather Cancer (units (unknown) date) unknown) (unknown) (no (unknown) (unknown) Liset Iraheta (units ( unknown) date) unknown) (unknown) (no (unknown) (unknown) HEAD: Atraumatic. (units (unknown) date) Normocephalic. unknown) (unknown) (no (unknown) (unknown) HEENT: Denies (units ( unknown) date) sinus pain, ear unknown) pain, sore throat, difficulty swallowing, (unknown) (no (unknown) (unknown) HPI - (units (unkno wn) date) Recheck/Abnormal unknown) Lab/Rx (unknown) (no (unknown) (unknown) HPI narrative: (units (unknown) date) unknown) (unknown) (no (unknown) (unknown) Oliver Colunga (units (unknown) date) unknown) (unknown) (no (unknown) (unknown) Hct (36-46) % (units ( unknown) date) unknown) (unknown) (no (unknown) (unknown) Hct 36.9 (36-46) % (units (unknown) date) unknown) (unknown) (no (unknown) (unknown) Hematoma of left (units (unknown) date) lower extremity unknown) (unknown) (no (unknown) (unknown) Hemiparesis (units (un known) date) unknown) (unknown) (no (unknown) (unknown) Hepatitis C (units (un known) date) () unknown) (unknown) (no (unknown) (unknown) Hgb (12.0-16.0) (units (unknown) date) g/dL unknown) (unknown) (no (unknown) (unknown) Hgb 12.5 (units (unkno wn) date) (12.0-16.0) g/dL unknown) (unknown) (no (unknown) (unknown) Hip X-Ray (Signed) (units (unknown) date) unknown) (unknown) (no (unknown) (unknown) History of Present (units (unknown) date) Illness unknown) (unknown) (no (unknown) (unknown) Neo Pritchard MD (units (unknown) date) [Primary Care unknown) Provider] - (unknown) (no (unknown) (unknown) Hydrocodone (units (un known) date) Bitart/Acetaminophe unknown) n (Hydrocodone/Acet 5/325 Tablet) 1 tab PO NOW (unknown) (no (unknown) (unknown) IMPRESSION:? (units (u nknown) date) unknown) (unknown) (no (unknown) (unknown) INDICATIONS:? (units ( unknown) date) wound overlying unknown) heel (unknown) (no (unknown) (unknown) Imaging Data (units (u nknown) date) unknown) (unknown) (no (unknown) (unknown) Initial Vital (units ( unknown) date) Signs unknown) (unknown) (no (unknown) (unknown) Initial Vital (units ( unknown) date) Signs: unknown) (unknown) (no (unknown) (unknown) Instructions: DI (units (unknown) date) for Urinary Tract unknown) Infection (UTI) (unknown) (no (unknown) (unknown) [place]oo,Rob (units ( unknown) date) unknown) (unknown) (no (unknown) (unknown) Lab Data (units (unkno wn) date) unknown) (unknown) (no (unknown) (unknown) Labs: (units (unkno wn) date) unknown) (unknown) (no (unknown) (unknown) Lactate (0.7-2.1) (units (unknown) date) mmol/L unknown) (unknown) (no (unknown) (unknown) Lactate 1.1 (units (un known) date) (0.7-2.1) mmol/L unknown) (unknown) (no (unknown) (unknown) Left leg (units (unkno wn) date) cellulitis unknown) (unknown) (no (unknown) (unknown) Levofloxacin (units (u nknown) date) (Levofloxacin 250 unknown) Mg Tablet) 500 mg PO NOW ONE (unknown) (no (unknown) (unknown) Steff Singhng (units (unkno wn) date) unknown) (unknown) (no (unknown) (unknown) Loc: ED (units (unkno wn) date) unknown) (unknown) (no (unknown) (unknown) Lower Extremity CT (units (unknown) date) (Signed) unknown) (unknown) (no (unknown) (unknown) Lymph # (Auto) (units (unknown) date) (3537-7506) /uL unknown) (unknown) (no (unknown) (unknown) Lymph # (Auto) (units (unknown) date) 1400 (1563-5635) unknown) /uL (unknown) (no (unknown) (unknown) Lymph % (Auto) (units (unknown) date) (25-40) % unknown) (unknown) (no (unknown) (unknown) Lymph % (Auto) (units (unknown) date) 17.4 L (25-40) % unknown) (unknown) (no (unknown) (unknown) MCH (26-34) PG (units (unknown) date) unknown) (unknown) (no (unknown) (unknown) MCH 31.1 (26-34) (units (unknown) date) PG unknown) (unknown) (no (unknown) (unknown) MCHC (30-36) % (units (unknown) date) unknown) (unknown) (no (unknown) (unknown) MCHC 33.8 (30-36) (units (unknown) date) % unknown) (unknown) (no (unknown) (unknown) MCV (80-100) fL (units (unknown) date) unknown) (unknown) (no (unknown) (unknown) MCV 91.9 (80-100) (units (unknown) date) fL unknown) (unknown) (no (unknown) (unknown) MDM - (units (unkno wn) date) Recheck/Abnormal unknown) Lab/Rx (unknown) (no (unknown) (unknown) MDM Narrative (units ( unknown) date) unknown) (unknown) (no (unknown) (unknown) MR#: [id number] (units (unknown) date) unknown) (unknown) (no (unknown) (unknown) MUSCULOSKELETAL: (units (unknown) date) denies weakness, unknown) joint pain, or bony pain (unknown) (no (unknown) (unknown) Jt Jimenez (units (unknown) date) unknown) (unknown) (no (unknown) (unknown) Measles (units (unkno wn) date) unknown) (unknown) (no (unknown) (unknown) Medical History (units (unknown) date) (Reviewed 12/08/21 unknown) @ 04:03 by Matthew Mccormick DO) (unknown) (no (unknown) (unknown) Medical decision (units (unknown) date) making narrative: unknown) (unknown) (no (unknown) (unknown) Manjit Minor MD (units (unknown) date) [Physician] - unknown) (unknown) (no (unknown) (unknown) Mode of arrival: (units (unknown) date) EMS unknown) (unknown) (no (unknown) (unknown) Jerome # (Auto) (units ( unknown) date) (0-900) /uL unknown) (unknown) (no (unknown) (unknown) Jerome # (Auto) 600 (units (unknown) date) (0-900) /uL unknown) (unknown) (no (unknown) (unknown) Jerome % (Auto) (units ( unknown) date) (3-14) % unknown) (unknown) (no (unknown) (unknown) Jerome % (Auto) 6.9 (units (unknown) date) (3-14) % unknown) (unknown) (no (unknown) (unknown) 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 Non tender unknown) (unknown) (no (unknown) (unknown) NEURO: AOx3. (units (u nknown) date) unknown) (unknown) (no (unknown) (unknown) NEUROLOGIC: Denies (units (unknown) date) weakness, headache, unknown) numbness, change in speech, confusion, (unknown) (no (unknown) (unknown) Narrative (units (unkn own) date) unknown) (unknown) (no (unknown) (unknown) Narrative: (units (unk nown) date) unknown) (unknown) (no (unknown) (unknown) Neut # (Auto) (units ( unknown) date) (7404-3101) /uL unknown) (unknown) (no (unknown) (unknown) Neut # (Auto) (units ( unknown) date) 6100 ([id number]) unknown) /uL (unknown) (no (unknown) (unknown) Neut % (Auto) (units ( unknown) date) (50-75) % unknown) (unknown) (no (unknown) (unknown) Neut % (Auto) 75.4 (units (unknown) date) H (50-75) % unknown) (unknown) (no (unknown) (unknown) New (units (unkno wn) date) unknown) (unknown) (no (unknown) (unknown) No Action (units (unkn own) date) unknown) (unknown) (no (unknown) (unknown) ONE (units (unkno wn) date) unknown) (unknown) (no (unknown) (unknown) Ordered: (units (unkno wn) date) unknown) (unknown) (no (unknown) (unknown) Ordering Provider: (units (unknown) date) Matthew Mccormick D.O. unknown) (unknown) (no (unknown) (unknown) Orders (units (unkno wn) date) unknown) (unknown) (no (unknown) (unknown) Outside DI (units (unk nown) date) unknown) (unknown) (no (unknown) (unknown) Oxygen Delivery (units (unknown) date) Method 12/07/21 unknown) 16:32 (unknown) (no (unknown) (unknown) Oxygen Delivery (units (unknown) date) Method Room Air unknown) (unknown) (no (unknown) (unknown) PICC (peripherally (units (unknown) date) inserted central unknown) catheter) in place (unknown) (no (unknown) (unknown) PROCEDURE:? XR (units (unknown) date) FOOT LT MIN 3V unknown) (unknown) (no (unknown) (unknown) PSYCHIATRIC: No (units (unknown) date) concerning unknown) psychosocial issues. (unknown) (no (unknown) (unknown) Paraplegia (units (unk nown) date) (02/14/16) unknown) (unknown) (no (unknown) (unknown) Paraplegic spinal (units (unknown) date) paralysis unknown) (unknown) (no (unknown) (unknown) Patient (units (unkno wn) date) Disposition: Home unknown) (unknown) (no (unknown) (unknown) Patient History (units (unknown) date) unknown) (unknown) (no (unknown) (unknown) Patient with (units (u nknown) date) nondescript mild unknown) symptoms, stable vital signs, no respiratory (unknown) (no (unknown) (unknown) Patient: (units (unkno wn) date) Karina Diallo MR#: unknown) [id number] (unknown) (no (unknown) (unknown) Patient: (units (unkno wn) date) Karina Diallo unknown) (unknown) (no (unknown) (unknown) [facility] (Signed) (units (unknown) date) unknown) (unknown) (no (unknown) (unknown) [facility] MRI (units (unk nown) date) (Signed) unknown) (unknown) (no (unknown) (unknown) Penicillins (units (un known) date) Allergy Unknown unknown) Verified 11/28/21 07:23 (unknown) (no (unknown) (unknown) Peripheral (units (unk nown) date) Vascular Ultrasound unknown) (Signed) (unknown) (no (unknown) (unknown) Silviano Hathaway (units (un known) date) unknown) (unknown) (no (unknown) (unknown) Post-op bleeding (units (unknown) date) unknown) (unknown) (no (unknown) (unknown) Potassium (units (unkn own) date) (3.4-5.1) mmol/L unknown) (unknown) (no (unknown) (unknown) Potassium 3.9 (units ( unknown) date) (3.4-5.1) mmol/L unknown) (unknown) (no (unknown) (unknown) Prescriptions: (units (unknown) date) unknown) (unknown) (no (unknown) (unknown) Pressure ulcer of (units (unknown) date) contiguous site of unknown) back, buttock and hip, stage 2 (unknown) (no (unknown) (unknown) Pressure ulcer of (units (unknown) date) left thigh unknown) (unknown) (no (unknown) (unknown) Procedure: XR foot (units (unknown) date) LT min 3V unknown) (unknown) (no (unknown) (unknown) Pulse Oximetry 96 (units (unknown) date) unknown) (unknown) (no (unknown) (unknown) Pulse Rate 102 H (units (unknown) date) 12/07/21 16:32 unknown) (unknown) (no (unknown) (unknown) Pulse Rate 61 (units ( unknown) date) unknown) (unknown) (no (unknown) (unknown) RDW (11.6-14.8) % (units (unknown) date) unknown) (unknown) (no (unknown) (unknown) RDW 13.6 (units (unkno wn) date) (11.6-14.8) % unknown) (unknown) (no (unknown) (unknown) RESPIRATORY: Clear (units (unknown) date) to auscultation. unknown) Breath sounds equal bilaterally. No wheezes, (unknown) (no (unknown) (unknown) RESPIRATORY: (units (u nknown) date) Denies dyspnea, unknown) cough, wheezing, hemoptysis, sputum. (unknown) (no (unknown) (unknown) Referrals: (units (unk nown) date) unknown) (unknown) (no (unknown) (unknown) Related Data (units (u nknown) date) unknown) (unknown) (no (unknown) (unknown) Resource line at (units (unknown) date) [phone]. They unknown) will ask some questions about your medical (unknown) (no (unknown) (unknown) Respiratory Rate (units (unknown) date) 20 12/07/21 16:32 unknown) (unknown) (no (unknown) (unknown) Respiratory Rate (units (unknown) date) 14 unknown) (unknown) (no (unknown) (unknown) Result diagrams: (units (unknown) date) unknown) (unknown) (no (unknown) (unknown) Retention of (units (u nknown) date) urine, unspecified unknown) (unknown) (no (unknown) (unknown) Review of Systems (units (unknown) date) unknown) (unknown) (no (unknown) (unknown) SARS-CoV-2 (PCR) (units (unknown) date) (Negative) unknown) (unknown) (no (unknown) (unknown) SARS-CoV-2 (PCR) (units (unknown) date) Negative (Negative) unknown) (unknown) (no (unknown) (unknown) SKIN: Multiple (units (unknown) date) known, chronic and unknown) relatively deep pressure sores on her (unknown) (no (unknown) (unknown) SKIN: See HPI (units ( unknown) date) unknown) (unknown) (no (unknown) (unknown) Seasonal allergies (units (unknown) date) unknown) (unknown) (no (unknown) (unknown) Signed By: (units (unk nown) date) unknown) (unknown) (no (unknown) (unknown) Sister Mental (units ( unknown) date) health problem unknown) (unknown) (no (unknown) (unknown) Skin ulcer of (units ( unknown) date) ankle unknown) (unknown) (no (unknown) (unknown) Smoking Status: (units (unknown) date) Former smoker unknown) (unknown) (no (unknown) (unknown) Smoking Status: (units (unknown) date) Former smoker unknown) (unknown) (no (unknown) (unknown) Social History (units (unknown) date) (Reviewed 12/08/21 unknown) @ 04:03 by Matthew Mccormick DO) (unknown) (no (unknown) (unknown) Sodium (137-145) (units (unknown) date) mmol/L unknown) (unknown) (no (unknown) (unknown) Sodium 141 (units (unk nown) date) (137-145) mmol/L unknown) (unknown) (no (unknown) (unknown) Soft tissues:? No (units (unknown) date) suspicious soft unknown) tissue calcifications or soft tissue gas. (unknown) (no (unknown) (unknown) Source: EMS (units (un known) date) unknown) (unknown) (no (unknown) (unknown) Stated Complaint: (units (unknown) date) Body Aches unknown) (unknown) (no (unknown) (unknown) Substance Use (units ( unknown) date) Type: marijuana unknown) (unknown) (no (unknown) (unknown) TECHNIQUE:? 3 (units ( unknown) date) views of the foot unknown) were acquired.? (unknown) (no (unknown) (unknown) Telemetry Strips (units (unknown) date) unknown) (unknown) (no (unknown) (unknown) Temperature 98.7 F (units (unknown) date) 12/07/21 16:32 unknown) (unknown) (no (unknown) (unknown) Temperature 97.9 F (units (unknown) date) unknown) (unknown) (no (unknown) (unknown) Time Seen by (units (u nknown) date) Provider: 12/07/21 unknown) 19:51 (unknown) (no (unknown) (unknown) Toe laceration (units (unknown) date) unknown) (unknown) (no (unknown) (unknown) Total Bilirubin (units (unknown) date) (0.2-1.3) mg/dL unknown) (unknown) (no (unknown) (unknown) Total Bilirubin (units (unknown) date) 0.4 (0.2-1.3) mg/dL unknown) (unknown) (no (unknown) (unknown) Total Protein (units ( unknown) date) (6.3-8.2) g/dL unknown) (unknown) (no (unknown) (unknown) Total Protein 8.6 (units (unknown) date) H (6.3-8.2) g/dL unknown) (unknown) (no (unknown) (unknown) UA Complete (units (un known) date) [Urinalysis and unknown) Microscopic] Stat (unknown) (no (unknown) (unknown) UTI (urinary tract (units (unknown) date) infection) unknown) (unknown) (no (unknown) (unknown) UTI (urinary tract (units (unknown) date) infection) due to unknown) Enterococcus (unknown) (no (unknown) (unknown) Ur Culture (units (unk nown) date) Indicated? unknown) (unknown) (no (unknown) (unknown) Ur Culture (units (unk nown) date) Indicated? Specimen unknown) cultured (unknown) (no (unknown) (unknown) Ur Leukocyte (units (u nknown) date) Esterase (NEGATIVE) unknown) (unknown) (no (unknown) (unknown) Ur Leukocyte (units (u nknown) date) Esterase 3+ H unknown) (NEGATIVE) (unknown) (no (unknown) (unknown) Ur Renal (units (unkno wn) date) Epithelial Cell unknown) (0-1/HPF) (unknown) (no (unknown) (unknown) Ur Renal (units (unkno wn) date) Epithelial Cell unknown) 0-1/hpf (0-1/HPF) (unknown) (no (unknown) (unknown) Ur Specific (units (un known) date) Duarte unknown) (1.000-1.035) (unknown) (no (unknown) (unknown) Ur Specific (units (un known) date) Duarte 1.015 unknown) (1.000-1.035) (unknown) (no (unknown) (unknown) Ur Squamous Epith (units (unknown) date) Cells (0-5/HPF) unknown) (unknown) (no (unknown) (unknown) Ur Squamous Epith (units (unknown) date) Cells 1-5 /hpf unknown) (0-5/HPF) (unknown) (no (unknown) (unknown) Ur Transition (units ( unknown) date) Epith Cell unknown) (0-5/HPF) (unknown) (no (unknown) (unknown) Ur Transition (units ( unknown) date) Epith Cell 1-5/hpf unknown) (0-5/HPF) (unknown) (no (unknown) (unknown) Urine Appearance (units (unknown) date) unknown) (unknown) (no (unknown) (unknown) Urine Appearance (units (unknown) date) Clear unknown) (unknown) (no (unknown) (unknown) Urine Bacteria (units (unknown) date) (None) unknown) (unknown) (no (unknown) (unknown) Urine Bacteria (units (unknown) date) Many (>30) H (None) unknown) (unknown) (no (unknown) (unknown) Urine Bilirubin (units (unknown) date) (NEGATIVE) unknown) (unknown) (no (unknown) (unknown) Urine Bilirubin (units (unknown) date) Negative (NEGATIVE) unknown) (unknown) (no (unknown) (unknown) Urine Color (units (un known) date) unknown) (unknown) (no (unknown) (unknown) Urine Color Yellow (units (unknown) date) unknown) (unknown) (no (unknown) (unknown) Urine Culture Stat (units (unknown) date) unknown) (unknown) (no (unknown) (unknown) Urine Glucose (UA) (units (unknown) date) (Negative) g/dL unknown) (unknown) (no (unknown) (unknown) Urine Glucose (UA) (units (unknown) date) Negative (Negative) unknown) g/dL (unknown) (no (unknown) (unknown) Urine Ketones (units ( unknown) date) (NEGATIVE) unknown) (unknown) (no (unknown) (unknown) Urine Ketones (units ( unknown) date) Trace H (NEGATIVE) unknown) (unknown) (no (unknown) (unknown) Urine Nitrate (units ( unknown) date) (Negative) unknown) (unknown) (no (unknown) (unknown) Urine Nitrate (units ( unknown) date) Negative (Negative) unknown) (unknown) (no (unknown) (unknown) Urine Occult Blood (units (unknown) date) (Negative) unknown) (unknown) (no (unknown) (unknown) Urine Occult Blood (units (unknown) date) Trace-lysed unknown) (Negative) (unknown) (no (unknown) (unknown) Urine Protein (units ( unknown) date) (Negative) unknown) (unknown) (no (unknown) (unknown) Urine Protein (units ( unknown) date) Negative (Negative) unknown) (unknown) (no (unknown) (unknown) Urine RBC (units (unkn own) date) (0-5/HPF) unknown) (unknown) (no (unknown) (unknown) Urine RBC 1-5/hpf (units (unknown) date) (0-5/HPF) unknown) (unknown) (no (unknown) (unknown) Urine Urobilinogen (units (unknown) date) (0.2) E.U./dL unknown) (unknown) (no (unknown) (unknown) Urine Urobilinogen (units (unknown) date) 0.2 (0.2) E.U./dL unknown) (unknown) (no (unknown) (unknown) Urine WBC (units (unkn own) date) (0-5/HPF) unknown) (unknown) (no (unknown) (unknown) Urine WBC (units (unkn own) date) 10-30/hpf H unknown) (0-5/HPF) (unknown) (no (unknown) (unknown) Urine pH (4.5-8.0) (units (unknown) date) unknown) (unknown) (no (unknown) (unknown) Urine pH 7.0 (units (u nknown) date) (4.5-8.0) unknown) (unknown) (no (unknown) (unknown) Vascular (units (unkno wn) date) Ultrasound (Signed) unknown) (unknown) (no (unknown) (unknown) Visit Report (units (u nknown) date) Forms: Patient unknown) Portal/API (unknown) (no (unknown) (unknown) Vital Signs (units (un known) date) unknown) (unknown) (no (unknown) (unknown) Vital signs: (units (u nknown) date) unknown) (unknown) (no (unknown) (unknown) Javier Pichardo (units (unk nown) date) unknown) (unknown) (no (unknown) (unknown) Wound of sacral (units (unknown) date) region, subsequent unknown) encounter (08/29/15) (unknown) (no (unknown) (unknown) Negrito Moctzeuma (units (unkn own) date) unknown) (unknown) (no (unknown) (unknown) XR foot LT min 3V (units (unknown) date) Stat unknown) (unknown) (no (unknown) (unknown) Karon Cisneros (units (unkn own) date) unknown) (unknown) (no (unknown) (unknown) Elia Grant (units (unkno wn) date) unknown) (unknown) (no (unknown) (unknown) [Embedded Image (units (unknown) date) Not Available] unknown) (unknown) (no (unknown) (unknown) alcohol intake (units (unknown) date) frequency: unknown) holidays/special occasions only (unknown) (no (unknown) (unknown) alcohol intake: (units (unknown) date) never unknown) (unknown) (no (unknown) (unknown) amputation.? No (units (unknown) date) unknown) (unknown) (no (unknown) (unknown) appointment. Let (units (unknown) date) them know you were unknown) seen in the Emergency Department and that we (unknown) (no (unknown) (unknown) ask that you be (units (unknown) date) seen in follow up. unknown) We will electronically transmit a record of (unknown) (no (unknown) (unknown) be (units (unkno wn) date) unknown) (unknown) (no (unknown) (unknown) but states she (units (unknown) date) feels achy, very unknown) little other than this (unknown) (no (unknown) (unknown) buttocks (units (unkno wn) date) unknown) (unknown) (no (unknown) (unknown) catheter as well (units (unknown) date) as chronic buttock unknown) wounds and lower extremity wounds presents (unknown) (no (unknown) (unknown) cefpodoxime 200 mg (units (unknown) date) tablet 200 mg PO unknown) Q12H #14 tabs 11/28/21 (unknown) (no (unknown) (unknown) changes are (units (un known) date) unknown) (unknown) (no (unknown) (unknown) chlorhexidine (units ( unknown) date) Allergy Mild unknown) ITCHING Verified 11/28/21 07:23 (unknown) (no (unknown) (unknown) ciprofloxacin HCl (units (unknown) date) 500 mg tablet 500 unknown) mg PO BID #20 tabs 12/07/21 (unknown) (no (unknown) (unknown) concerning (units (unk nown) date) symptoms, such as unknown) [fever greater than 101 F, shaking chills, (unknown) (no (unknown) (unknown) constipation, (units ( unknown) date) melena. unknown) (unknown) (no (unknown) (unknown) cultures obtained (units (unknown) date) and sent to the unknown) lab, x-ray of heel demonstrates no sign of (unknown) (no (unknown) (unknown) demonstrated in (units (unknown) date) the posterior unknown) calcaneus consistent with prior partial (unknown) (no (unknown) (unknown) discrete bony (units ( unknown) date) erosions or unknown) definite periosteal reaction. (unknown) (no (unknown) (unknown) distress (units (unkno wn) date) unknown) (unknown) (no (unknown) (unknown) distress, (units (unkn own) date) well-hydrated, no unknown) vomiting with evidence of urinary tract infection. (unknown) (no (unknown) (unknown) dizziness. (units (unk nown) date) unknown) (unknown) (no (unknown) (unknown) due to (units (unkno wn) date) unknown) (unknown) (no (unknown) (unknown) ertapenem Allergy (units (unknown) date) Severe SEIZURES unknown) Verified 11/28/21 07:23 (unknown) (no (unknown) (unknown) feeling a bit (units ( unknown) date) achy. She is very unknown) nondescript about her complaints and a poor (unknown) (no (unknown) (unknown) feet, no (units (unkno wn) date) significant unknown) drainage or redness (unknown) (no (unknown) (unknown) historian. She (units (unknown) date) denies any headache unknown) or blurred vision. She denies runny nose, (unknown) (no (unknown) (unknown) history and help (units (unknown) date) get you set up with unknown) a doctor in the community. (unknown) (no (unknown) (unknown) household members: (units (unknown) date) none unknown) (unknown) (no (unknown) (unknown) hydrocodone 5 (units ( unknown) date) mg-acetaminophen unknown) 325 1 tab PO Q6H PRN pain #10 tabs 11/28/21 (unknown) (no (unknown) (unknown) icterus. No (units (un known) date) injection or unknown) drainage. (unknown) (no (unknown) (unknown) lactose AdvReac (units (unknown) date) Unknown Verified unknown) 11/28/21 07:23 (unknown) (no (unknown) (unknown) levothyroxine 50 (units (unknown) date) mcg tablet 50 mcg unknown) PO DAILY #30 tabs 10/12/19 (unknown) (no (unknown) (unknown) linezolid (units (unkn own) date) [LINEZOLID] Allergy unknown) Mild Verified 11/28/21 07:23 (unknown) (no (unknown) (unknown) lower extremities] (units (unknown) date) unknown) (unknown) (no (unknown) (unknown) marked (units (unkno wn) date) demineralization.? unknown) If clinical concern persists, further evaluation may (unknown) (no (unknown) (unknown) metronidazole 500 (units (unknown) date) mg tablet 500 mg unknown) .Route .COMPLEX 03/17/20 (unknown) (no (unknown) (unknown) mg tablet (units (unkn own) date) unknown) (unknown) (no (unknown) (unknown) obtained with MRI. (units (unknown) date) unknown) (unknown) (no (unknown) (unknown) osteomyelitis. (units (unknown) date) Referral sent to unknown) wound care. Return precautions given and (unknown) (no (unknown) (unknown) oxybutynin (units (unk nown) date) chloride 5 mg unknown) tablet 10 mg PO TID 03/17/20 (unknown) (no (unknown) (unknown) questions answered (units (unknown) date) to her apparent unknown) satisfaction (unknown) (no (unknown) (unknown) rales, or rhonchi. (units (unknown) date) unknown) (unknown) (no (unknown) (unknown) seizures, (units (unkn own) date) incoordination. unknown) (unknown) (no (unknown) (unknown) sennosides 8.6 mg (units (unknown) date) tablet (senna) 17.2 unknown) mg PO BEDTIME #60 tabs 03/17/20 (unknown) (no (unknown) (unknown) sore throat or (units (unknown) date) cough. She denies unknown) chest pain or shortness of breath nor nausea, (unknown) (no (unknown) (unknown) surrounding (units (un known) date) erythema. No unknown) sepsis, will treat with oral antibiotics, wound (unknown) (no (unknown) (unknown) today's note if (units (unknown) date) your PCP is in our unknown) system (unknown) (no (unknown) (unknown) tonsillar (units (unkn own) date) hypertrophy or unknown) exudate. Airway patent. (unknown) (no (unknown) (unknown) vomiting or (units (un known) date) diarrhea. She unknown) denies any significant change in her overall feeling (unknown) (no (unknown) (unknown) worsening pain, (units (unknown) date) persistent vomiting unknown) or other bothersome symptoms] (unknown) (no (unknown) (unknown) your wounds (units (un known) date) unknown) Result panel 49 (unknown) (no (unknown) (unknown) >100,000 CFU/ml (unkno wn) date) (unknown) (no (unknown) (unknown) GenericComposite[ (units (unknown) date) GNB^Gram negative unknown) bacilli] (unknown) (no (unknown) (unknown) Identification (units (unknown) date) and Sensitivity to unknown) Follow Result panel 50 (unknown) (no date) (unknown) (unknown) (no value) (units (un known) unknown) (unknown) (no date) (unknown) (unknown) NO GROWTH (units (unk nown) AFTER 24 unknown) HOURS Result panel 51 (unknown) (no date) (unknown) (unknown) (no value) (units (un known) unknown) (unknown) (no date) (unknown) (unknown) NO GROWTH (units (unk nown) AFTER 24 unknown) HOURS Result panel 52 (unknown) (no (unknown) (unknown) >100,000 CFU/ml (unkno wn) date) (unknown) (no (unknown) (unknown) GenericComposite[ (units (unknown) date) GNB^Gram negative unknown) bacilli] (unknown) (no (unknown) (unknown) Identification (units (unknown) date) and Sensitivity to unknown) Follow Result panel 53 (unknown) (no date) (unknown) (unknown) NO GROWTH (units (unk nown) AFTER 48 unknown) HOURS (unknown) (no date) (unknown) (unknown) (no value) (units (un known) unknown) Result panel 54 (unknown) (no date) (unknown) (unknown) NO GROWTH (units (unk nown) AFTER 48 unknown) HOURS (unknown) (no date) (unknown) (unknown) (no value) (units (un known) unknown) Result panel 55 (unknown) (no date) (unknown) (unknown) >100,000 CFU/ml (unkn own) (unknown) (no date) (unknown) (unknown) <=0.25 (units (unkn own) unknown) (unknown) (no date) (unknown) (unknown) <=1 (units (unkn own) unknown) (unknown) (no date) (unknown) (unknown) 2 (units (unkn own) unknown) (unknown) (no date) (unknown) (unknown) 4 (units (unkn own) unknown) (unknown) (no date) (unknown) (unknown) 8 (units (unkn own) unknown) (unknown) (no date) (unknown) (unknown) GenericCompos (units (unknown) ite[PSEAER^Pse unknown) udomonas aeruginosa] (unknown) (no date) (unknown) (unknown) No Further (units (un known) Workup unknown) Result panel 56 (unknown) (no date) (unknown) (unknown) (no value) (units (un known) unknown) (unknown) (no date) (unknown) (unknown) NO GROWTH (units (unk nown) AFTER 72 unknown) HOURS Result panel 57 (unknown) (no date) (unknown) (unknown) (no value) (units (un known) unknown) (unknown) (no date) (unknown) (unknown) NO GROWTH (units (unk nown) AFTER 72 unknown) HOURS Result panel 58 (unknown) (no date) (unknown) (unknown) (no value) (units (un known) unknown) (unknown) (no date) (unknown) (unknown) NO GROWTH (units (unk nown) AFTER 4 DAYS unknown) Result panel 59 (unknown) (no date) (unknown) (unknown) (no value) (units (un known) unknown) (unknown) (no date) (unknown) (unknown) NO GROWTH (units (unk nown) AFTER 4 DAYS unknown) Result panel 60 (unknown) (no date) (unknown) (unknown) (no value) (units (un known) unknown) (unknown) (no date) (unknown) (unknown) NO GROWTH (units (unk nown) AFTER 5 DAYS unknown) Result panel 61 (unknown) (no date) (unknown) (unknown) (no value) (units (un known) unknown) (unknown) (no date) (unknown) (unknown) NO GROWTH (units (unk nown) AFTER 5 DAYS unknown) Result panel 62 (unknown) (no (unknown) (unknown) (no value) (units (unk nown) date) unknown) (unknown) (no (unknown) (unknown) (no value) (units (unk nown) date) unknown) (unknown) (no (unknown) (unknown) [address] [place] [address] (units (unknown) date) unknown) (unknown) (no (unknown) (unknown) [place], [place] (units ( unknown) date) [id number] unknown) (unknown) (no (unknown) (unknown) CT Scan Report (units (unknown) date) unknown) (unknown) (no (unknown) (unknown) [facility] (units (unknown) date) unknown) (unknown) (no (unknown) (unknown) Signed (units (unkno wn) date) unknown) (unknown) (no (unknown) (unknown) (no value) (units (unk nown) date) unknown) (unknown) (no (unknown) (unknown) 12/25/21 (units (unkno wn) date) unknown) (unknown) (no (unknown) (unknown) 1. Proximal (units (un known) date) colonic obstipation unknown) may account for right lower quadrant palpable (unknown) (no (unknown) (unknown) 2. Marked rectal (units (unknown) date) obstipation, worse unknown) compared to the prior study. (unknown) (no (unknown) (unknown) 3. Chronic sacral (units (unknown) date) decubitus ulcer, unknown) posterior subluxation of both hip joints, (unknown) (no (unknown) (unknown) 4. Mild (units (unkno wn) date) hepatomegaly and unknown) hepatic steatosis. (unknown) (no (unknown) (unknown) 5. Cholelithiasis. (units (unknown) date) unknown) (unknown) (no (unknown) (unknown) ABDOMEN: (units (unkno wn) date) unknown) (unknown) (no (unknown) (unknown) Abdominal Nodes: (units (unknown) date) No retroperitoneal unknown) or mesenteric adenopathy by size criteria. (unknown) (no (unknown) (unknown) Adrenal Glands: No (units (unknown) date) adrenal masses. unknown) (unknown) (no (unknown) (unknown) After the (units (unkn own) date) administration of unknown) intravenous contrast, axial sections acquired from (unknown) (no (unknown) (unknown) Approved by: (units (u nknown) date) Liset Iraheta M.D. unknown) on 12/25/2021 at 23:39 (unknown) (no (unknown) (unknown) Biliary ducts: No (units (unknown) date) visible biliary unknown) dilatation. (unknown) (no (unknown) (unknown) Bladder: Diffusely (units (unknown) date) decompressed. unknown) (unknown) (no (unknown) (unknown) Bones: Spinal (units ( unknown) date) fusion hardware unknown) throughout the lower thoracic and lumbar spine. (unknown) (no (unknown) (unknown) COMPARISON: [place] (units (unknown) date) [facility], CT, CT unknown) ABDOMEN PELVIS W CON, 09/27/2018, 8:59. (unknown) (no (unknown) (unknown) Dictated by: (units (u nknown) date) Liset Iraheta M.D. unknown) on 12/25/2021 at 23:30 (unknown) (no (unknown) (unknown) FINDINGS: (units (unkn own) date) unknown) (unknown) (no (unknown) (unknown) Gallbladder: Small (units (unknown) date) dependently unknown) layering calcified stones near the gallbladder (unknown) (no (unknown) (unknown) Heart: Mild (units (un known) date) cardiomegaly. unknown) (unknown) (no (unknown) (unknown) IMPRESSION: (units (un known) date) unknown) (unknown) (no (unknown) (unknown) INDICATIONS: R (units (unknown) date) lower abdominal unknown) mass (unknown) (no (unknown) (unknown) Image quality: (units (unknown) date) Excellent. unknown) (unknown) (no (unknown) (unknown) Kidneys and (units (un known) date) Ureters: Symmetric unknown) uptake of IV contrast. No suspicious mass. (unknown) (no (unknown) (unknown) Liver: Mild (units (un known) date) hepatomegaly and unknown) hepatic steatosis. No focal lesions. (unknown) (no (unknown) (unknown) Lung bases: No (units (unknown) date) effusions or unknown) consolidations. (unknown) (no (unknown) (unknown) Miscellaneous: (units (unknown) date) Prominent, chronic unknown) left sacral decubitus ulcer extending to the (unknown) (no (unknown) (unknown) No gallbladder (units (unknown) date) wall thickening. unknown) (unknown) (no (unknown) (unknown) PELVIS: (units (unkno wn) date) unknown) (unknown) (no (unknown) (unknown) Pancreas: (units (unkn own) date) Diminutive. No unknown) acute inflammation. (unknown) (no (unknown) (unknown) Pelvic Nodes: No (units (unknown) date) enlarged lymph unknown) nodes. (unknown) (no (unknown) (unknown) Pelvic Organs: (units (unknown) date) Anteverted uterus. unknown) Stephens catheter decompressing the urinary (unknown) (no (unknown) (unknown) Peritoneum: No (units (unknown) date) abnormal unknown) intraperitoneal fluid. No free air. (unknown) (no (unknown) (unknown) Spleen: Mildly (units (unknown) date) enlarged, stable. unknown) (unknown) (no (unknown) (unknown) Stomach and Bowel: (units (unknown) date) Large amount of unknown) rectal stool. The colon is redundant and (unknown) (no (unknown) (unknown) TECHNIQUE: (units (unk nown) date) unknown) (unknown) (no (unknown) (unknown) Ventral Wall: No (units (unknown) date) hernias. unknown) (unknown) (no (unknown) (unknown) Vessels: Aorta and (units (unknown) date) inferior vena cava unknown) are normal in size. Moderate abdominal (unknown) (no (unknown) (unknown) and acetabulum. (units (unknown) date) unknown) (unknown) (no (unknown) (unknown) atherosclerotic (units (unknown) date) calcification. unknown) (unknown) (no (unknown) (unknown) bases to the pubic (units (unknown) date) symphysis. Coronal unknown) and sagittal reformats were performed. (unknown) (no (unknown) (unknown) femoroacetabular (units (unknown) date) joint effusions. unknown) Cortical regularity involving the left (unknown) (no (unknown) (unknown) for any palpable (units (unknown) date) mass. Stomach and unknown) small bowel loops are within normal limits. (unknown) (no (unknown) (unknown) left hydroureter. (units (unknown) date) No urinary unknown) calcifications. (unknown) (no (unknown) (unknown) moderate stool. (units (unknown) date) This is unknown) particularly seen in the right lower quadrant, likely (unknown) (no (unknown) (unknown) of mA and/or kV (units (unknown) date) according to unknown) patient size. (unknown) (no (unknown) (unknown) posterior (units (unkn own) date) subluxation of both unknown) femoroacetabular joints and prominent left and (unknown) (no (unknown) (unknown) radiation dose (units (unknown) date) reduction, the unknown) following was used: automated exposure control, (unknown) (no (unknown) (unknown) than right, and (units (unknown) date) chronic moderate unknown) size left hip joint effusion. Cortical (unknown) (no (unknown) (unknown) the left femoral (units (unknown) date) head has unknown) progressed. (unknown) (no (unknown) (unknown) tuberosity. There (units (unknown) date) is diffuse truncal unknown) and lower extremity muscular atrophy. (unknown) (no (unknown) (unknown) (units (unkno wn) date) unknown) (unknown) (no (unknown) (unknown) Accession Number: (units (unknown) date) [id number] unknown) (unknown) (no (unknown) (unknown) Age/Sex: 66 / F (units (unknown) date) Date of Service: unknown) (unknown) (no (unknown) (unknown) : 1955 (units (unknown) date) Acct:[id number] unknown) (unknown) (no (unknown) (unknown) For (units (unkno wn) date) unknown) (unknown) (no (unknown) (unknown) Loc: ED (units (unkno wn) date) unknown) (unknown) (no (unknown) (unknown) Moderate (units (unkno wn) date) unknown) (unknown) (no (unknown) (unknown) Ordering Provider: (units (unknown) date) Mone Baum MD unknown) (unknown) (no (unknown) (unknown) PROCEDURE: CT (units ( unknown) date) ABDOMEN PELVIS W unknown) CON (unknown) (no (unknown) (unknown) Patient: (units (unkno wn) date) Karina Diallo MR#: unknown) [id number] (unknown) (no (unknown) (unknown) Procedure: CT (units ( unknown) date) abdomen pelvis w unknown) con (unknown) (no (unknown) (unknown) There is (units (unkno wn) date) unknown) (unknown) (no (unknown) (unknown) accounting (units (unk nown) date) unknown) (unknown) (no (unknown) (unknown) adjustment (units (unk nown) date) unknown) (unknown) (no (unknown) (unknown) aortic (units (unkno wn) date) unknown) (unknown) (no (unknown) (unknown) bladder. (units (unkno wn) date) unknown) (unknown) (no (unknown) (unknown) contains (units (unkno wn) date) unknown) (unknown) (no (unknown) (unknown) femoral head (units (u nknown) date) unknown) (unknown) (no (unknown) (unknown) fundus. (units (unkno wn) date) unknown) (unknown) (no (unknown) (unknown) irregularity of (units (unknown) date) unknown) (unknown) (no (unknown) (unknown) ischial (units (unkno wn) date) unknown) (unknown) (no (unknown) (unknown) left worse (units (unk nown) date) unknown) (unknown) (no (unknown) (unknown) mass. (units (unkno wn) date) unknown) (unknown) (no (unknown) (unknown) mild right (units (unk nown) date) unknown) (unknown) (no (unknown) (unknown) the lung (units (unkno wn) date) unknown) Result panel 63 (unknown) (no date) (unknown) (unknown) 0 /uL (unkn own) (unknown) (no date) (unknown) (unknown) 0.2 E.U./dL (unkn own) (unknown) (no date) (unknown) (unknown) 0.3 % (unkn own) (unknown) (no date) (unknown) (unknown) 1.010 (units (unkn own) unknown) (unknown) (no date) (unknown) (unknown) 1.3 % (unkn own) (unknown) (no date) (unknown) (unknown) 100 /uL (unkn own) (unknown) (no date) (unknown) (unknown) 12.1 g/dL (unkn own) (unknown) (no date) (unknown) (unknown) 14.2 % (unkn own) (unknown) (no date) (unknown) (unknown) 2+ (units (unkn own) unknown) (unknown) (no date) (unknown) (unknown) 2000 /uL (unkn own) (unknown) (no date) (unknown) (unknown) 237 X10 3/uL (unkn own) (unknown) (no date) (unknown) (unknown) 29.8 PG (unkn own) (unknown) (no date) (unknown) (unknown) 3+ (units (unkn own) unknown) (unknown) (no date) (unknown) (unknown) 30.4 % (unkn own) (unknown) (no date) (unknown) (unknown) 32.7 % (unkn own) (unknown) (no date) (unknown) (unknown) 37.1 % (unkn own) (unknown) (no date) (unknown) (unknown) 4.08 X10 6/uL (unkn own) (unknown) (no date) (unknown) (unknown) 400 /uL (unkn own) (unknown) (no date) (unknown) (unknown) 4100 /uL (unkn own) (unknown) (no date) (unknown) (unknown) 5.4 % (unkn own) (unknown) (no date) (unknown) (unknown) 6.6 X10 3/uL (unkn own) (unknown) (no date) (unknown) (unknown) 62.6 % (unkn own) (unknown) (no date) (unknown) (unknown) 7.0 (units (unkn own) unknown) (unknown) (no date) (unknown) (unknown) 91.0 fL (unkn own) (unknown) (no date) (unknown) (unknown) CLOUDY (units (unkn own) unknown) (unknown) (no date) (unknown) (unknown) NEGATIVE (units (unkn own) unknown) (unknown) (no date) (unknown) (unknown) NEGATIVE g/dL (unkn own) (unknown) (no date) (unknown) (unknown) POSITIVE (units (unkn own) unknown) (unknown) (no date) (unknown) (unknown) YELLOW (units (unkn own) unknown) Result panel 64 (unknown) (no date) (unknown) (unknown) >100/HPF (units (unkn own) unknown) (unknown) (no date) (unknown) (unknown) 0-1 /HPF (units (unkn own) unknown) (unknown) (no date) (unknown) (unknown) 0.2 E.U./dL (unkn own) (unknown) (no date) (unknown) (unknown) 1.010 (units (unkn own) unknown) (unknown) (no date) (unknown) (unknown) 2+ (units (unkn own) unknown) (unknown) (no date) (unknown) (unknown) 3+ (units (unkn own) unknown) (unknown) (no date) (unknown) (unknown) 5-10/HPF (units (unkn own) unknown) (unknown) (no date) (unknown) (unknown) 7.0 (units (unkn own) unknown) (unknown) (no date) (unknown) (unknown) CLOUDY (units (unkn own) unknown) (unknown) (no date) (unknown) (unknown) Few (units (unkn own) unknown) (unknown) (no date) (unknown) (unknown) Many (>30) (units (un known) unknown) (unknown) (no date) (unknown) (unknown) NEGATIVE (units (unkn own) unknown) (unknown) (no date) (unknown) (unknown) NEGATIVE g/dL (unkn own) (unknown) (no date) (unknown) (unknown) POSITIVE (units (unkn own) unknown) (unknown) (no date) (unknown) (unknown) Specimen (units (unkn own) Cultured unknown) (unknown) (no date) (unknown) (unknown) YELLOW (units (unkn own) unknown) Result panel 65 (unknown) (no date) (unknown) (unknown) Negative (units (unkn own) unknown) Result panel 66 (unknown) (no date) (unknown) (unknown) > 60 mL/min (unkn own) (unknown) (no date) (unknown) (unknown) < 0.012 ng/mL (unkn own) (unknown) (no date) (unknown) (unknown) 0.4 mg/dL (unkn own) (unknown) (no date) (unknown) (unknown) 0.48 mg/dL (unkn own) (unknown) (no date) (unknown) (unknown) 0.6 mmol/L (unkn own) (unknown) (no date) (unknown) (unknown) 1.0 (units (unkn own) unknown) (unknown) (no date) (unknown) (unknown) 100 mg/dL (unkn own) (unknown) (no date) (unknown) (unknown) 100 mmol/L (unkn own) (unknown) (no date) (unknown) (unknown) 104 U/L (unkn own) (unknown) (no date) (unknown) (unknown) 14 mg/dL (unkn own) (unknown) (no date) (unknown) (unknown) 140 mmol/L (unkn own) (unknown) (no date) (unknown) (unknown) 2.3 mg/dL (unkn own) (unknown) (no date) (unknown) (unknown) 29.2 (units (unkn own) unknown) (unknown) (no date) (unknown) (unknown) 3.6 mmol/L (unkn own) (unknown) (no date) (unknown) (unknown) 31 mmol/L (unkn own) (unknown) (no date) (unknown) (unknown) 4.2 g/dL (unkn own) (unknown) (no date) (unknown) (unknown) 4.4 g/dL (unkn own) (unknown) (no date) (unknown) (unknown) 47 IU/L (unkn own) (unknown) (no date) (unknown) (unknown) 53 IU/L (unkn own) (unknown) (no date) (unknown) (unknown) 8.6 g/dL (unkn own) (unknown) (no date) (unknown) (unknown) 9.3 mg/dL (unkn own) Result panel 67 (unknown) (no date) (unknown) (unknown) > 60 mL/min (unkn own) (unknown) (no date) (unknown) (unknown) < 0.012 ng/mL (unkn own) (unknown) (no date) (unknown) (unknown) 0.08 ng/mL (unkn own) (unknown) (no date) (unknown) (unknown) 0.4 mg/dL (unkn own) (unknown) (no date) (unknown) (unknown) 0.48 mg/dL (unkn own) (unknown) (no date) (unknown) (unknown) 1.0 (units (unkn own) unknown) (unknown) (no date) (unknown) (unknown) 100 mg/dL (unkn own) (unknown) (no date) (unknown) (unknown) 100 mmol/L (unkn own) (unknown) (no date) (unknown) (unknown) 104 U/L (unkn own) (unknown) (no date) (unknown) (unknown) 14 mg/dL (unkn own) (unknown) (no date) (unknown) (unknown) 140 mmol/L (unkn own) (unknown) (no date) (unknown) (unknown) 2.3 mg/dL (unkn own) (unknown) (no date) (unknown) (unknown) 29.2 (units (unkn own) unknown) (unknown) (no date) (unknown) (unknown) 3.6 mmol/L (unkn own) (unknown) (no date) (unknown) (unknown) 31 mmol/L (unkn own) (unknown) (no date) (unknown) (unknown) 4.2 g/dL (unkn own) (unknown) (no date) (unknown) (unknown) 4.4 g/dL (unkn own) (unknown) (no date) (unknown) (unknown) 47 IU/L (unkn own) (unknown) (no date) (unknown) (unknown) 53 IU/L (unkn own) (unknown) (no date) (unknown) (unknown) 8.6 g/dL (unkn own) (unknown) (no date) (unknown) (unknown) 9.3 mg/dL (unkn own) Result panel 68 (unknown) (no (unknown) (unknown) (no value) (units (unk nown) date) unknown) (unknown) (no (unknown) (unknown) Date of Service: (units (unknown) date) 12/25/21 unknown) (unknown) (no (unknown) (unknown) (no value) (units (unk nown) date) unknown) (unknown) (no (unknown) (unknown) 12/25/21 22:15 (units (unknown) date) unknown) (unknown) (no (unknown) (unknown) 1 tab PO Q6H PRN (units (unknown) date) (Reason: pain) unknown) Qty: 10 0RF (unknown) (no (unknown) (unknown) 10 mg PO TID (units (u nknown) date) unknown) (unknown) (no (unknown) (unknown) 17.2 mg PO (units (unk nown) date) BEDTIME Qty: 60 unknown) 5RF (unknown) (no (unknown) (unknown) 200 mg PO Q12H (units (unknown) date) Qty: 14 0RF unknown) (unknown) (no (unknown) (unknown) 50 mcg PO DAILY (units (unknown) date) Qty: 30 5RF unknown) (unknown) (no (unknown) (unknown) 500 mg .ROUTE (units ( unknown) date) .COMPLEX unknown) (unknown) (no (unknown) (unknown) 500 mg PO BID (units ( unknown) date) Qty: 20 0RF unknown) (unknown) (no (unknown) (unknown) 500 mg crush and (units (unknown) date) apply topically unknown) to wound twice weekly; (unknown) (no (unknown) (unknown) Allergies (units (unkn own) date) unknown) (unknown) (no (unknown) (unknown) Diabetes (units (unkno wn) date) mellitus unknown) (unknown) (no (unknown) (unknown) ED Orders (units (unkn own) date) unknown) (unknown) (no (unknown) (unknown) Emergency Report (units (unknown) date) unknown) (unknown) (no (unknown) (unknown) Home Medications (units (unknown) date) unknown) (unknown) (no (unknown) (unknown) [facility] (units (unknown) date) [address] [place] [address] unknown) [place] [address] (unknown) (no (unknown) (unknown) Lab Results (units (un known) date) unknown) (unknown) (no (unknown) (unknown) Previous Rx's (units ( unknown) date) unknown) (unknown) (no (unknown) (unknown) Rx Instructions: (units (unknown) date) unknown) (unknown) (no (unknown) (unknown) Vital Signs - 8 (units (unknown) date) hr unknown) (unknown) (no (unknown) (unknown) must administer (units (unknown) date) with a meal/food unknown) (unknown) (no (unknown) (unknown) (no value) (units (unk nown) date) unknown) (unknown) (no (unknown) (unknown) 12/25/21 (units (unkno wn) date) 12/25/21 12/25/21 unknown) Range/Units (unknown) (no (unknown) (unknown) 12/25/21 (units (unkno wn) date) 12/25/21 unknown) Range/Units (unknown) (no (unknown) (unknown) 22:15 22:15 (units (un known) date) unknown) (unknown) (no (unknown) (unknown) 22:15 22:15 (units (un known) date) 22:15 unknown) (unknown) (no (unknown) (unknown) cefpodoxime 200 (units (unknown) date) mg tablet unknown) (unknown) (no (unknown) (unknown) ciprofloxacin (units ( unknown) date) HCl [Cipro] 500 unknown) mg tablet (unknown) (no (unknown) (unknown) hydrocodone-acet (units (unknown) date) aminophen 5-325 unknown) mg tablet (unknown) (no (unknown) (unknown) levothyroxine (units ( unknown) date) [Synthroid] 50 unknown) mcg tablet (unknown) (no (unknown) (unknown) metronidazole (units ( unknown) date) 500 mg tablet unknown) (unknown) (no (unknown) (unknown) oxybutynin (units (unk nown) date) chloride 5 mg unknown) tablet (unknown) (no (unknown) (unknown) sennosides (units (unk nown) date) [senna] 8.6 mg unknown) tablet (unknown) (no (unknown) (unknown) 12/25/21 (units (unkno wn) date) unknown) (unknown) (no (unknown) (unknown) Full and (units (unkno wn) date) symmetrical air unknown) movement (unknown) (no (unknown) (unknown) Medication (units (unk nown) date) Instructions unknown) Recorded (unknown) (no (unknown) (unknown) Medication (units (unk nown) date) Instructions unknown) Recorded Confirmed (unknown) (no (unknown) (unknown) a Stephens catheter (units (unknown) date) in place. None of unknown) the areas look like they are particularly (unknown) (no (unknown) (unknown) show significant (units (unknown) date) skin breakdown. unknown) There is no cellulitis, drainage or (unknown) (no (unknown) (unknown) underlying fat (units (unknown) date) tissue unknown) appreciated without discharge or erythema. She does have (unknown) (no (unknown) (unknown) (Cipro) (units (unkno wn) date) unknown) (unknown) (no (unknown) (unknown) (Synthroid) (units (un known) date) unknown) (unknown) (no (unknown) (unknown) 12/25/21 22:15 (units (unknown) date) unknown) (unknown) (no (unknown) (unknown) 12/25/21 22:19 (units (unknown) date) unknown) (unknown) (no (unknown) (unknown) 08/22/22 22:21 (units (unknown) date) unknown) (unknown) (no (unknown) (unknown) 12/25/21 22:23 (units (unknown) date) unknown) (unknown) (no (unknown) (unknown) 0807 (units (unkno wn) date) unknown) (unknown) (no (unknown) (unknown) 1-2 weeks, she (units (unknown) date) has been feeling unknown) increasingly worse with which she feels are (unknown) (no (unknown) (unknown) 21:43 12/25/21 (units (unknown) date) unknown) (unknown) (no (unknown) (unknown) 22:00 (units (unkno wn) date) unknown) (unknown) (no (unknown) (unknown) 66-year-old T12 (units (unknown) date) paraplegic, unknown) chronic indwelling Stephens catheter, pressure over her (unknown) (no (unknown) (unknown) AF (paroxysmal (units (unknown) date) atrial unknown) fibrillation) (unknown) (no (unknown) (unknown) ALT (<35) IU/L (units (unknown) date) unknown) (unknown) (no (unknown) (unknown) ALT 47 H (<35) (units (unknown) date) IU/L unknown) (unknown) (no (unknown) (unknown) AST (14-36) IU/L (units (unknown) date) unknown) (unknown) (no (unknown) (unknown) AST 53 H (14-36) (units (unknown) date) IU/L unknown) (unknown) (no (unknown) (unknown) Abdomen: Soft, (units (unknown) date) large mass in the unknown) right lower quadrant that is not mobile but (unknown) (no (unknown) (unknown) Abrasion, left (units (unknown) date) lower leg, unknown) initial encounter (unknown) (no (unknown) (unknown) Abscess and (units (un known) date) cellulitis of unknown) gluteal region (unknown) (no (unknown) (unknown) Acute UTI (units (unkn own) date) unknown) (unknown) (no (unknown) (unknown) Acute (units (unkno wn) date) hypokalemia unknown) (unknown) (no (unknown) (unknown) Acute narcotic (units (unknown) date) withdrawal unknown) without complication (unknown) (no (unknown) (unknown) Age/Sex: 66 / F (units (unknown) date) unknown) (unknown) (no (unknown) (unknown) Albumin (units (unkno wn) date) (3.5-5.0) g/dL unknown) (unknown) (no (unknown) (unknown) Albumin 4.4 (units (un known) date) (3.5-5.0) g/dL unknown) (unknown) (no (unknown) (unknown) Albumin/Globulin (units (unknown) date) Ratio (1.0-2.8) unknown) (unknown) (no (unknown) (unknown) Albumin/Globulin (units (unknown) date) Ratio 1.0 unknown) (1.0-2.8) (unknown) (no (unknown) (unknown) Alkaline (units (unkno wn) date) Phosphatase unknown) (38-126) U/L (unknown) (no (unknown) (unknown) Alkaline (units (unkno wn) date) Phosphatase 104 unknown) (38-126) U/L (unknown) (no (unknown) (unknown) Allergy/AdvReac (units (unknown) date) Type Severity unknown) Reaction Status Date / Time (unknown) (no (unknown) (unknown) Anemia (units (unkno wn) date) unknown) (unknown) (no (unknown) (unknown) BUN (7-17) mg/dL (units (unknown) date) unknown) (unknown) (no (unknown) (unknown) BUN 14 (7-17) (units ( unknown) date) mg/dL unknown) (unknown) (no (unknown) (unknown) BUN/Creatinine (units (unknown) date) Ratio (6-22) unknown) (unknown) (no (unknown) (unknown) BUN/Creatinine (units (unknown) date) Ratio 29.2 H unknown) (6-22) (unknown) (no (unknown) (unknown) Baso # (Auto) (units ( unknown) date) (0-100) /uL unknown) (unknown) (no (unknown) (unknown) Baso # (Auto) 0 (units (unknown) date) (0-100) /uL unknown) (unknown) (no (unknown) (unknown) Baso % (Auto) (units ( unknown) date) (0-2) % unknown) (unknown) (no (unknown) (unknown) Baso % (Auto) (units ( unknown) date) 0.3 (0-2) % unknown) (unknown) (no (unknown) (unknown) Bilateral lower (units (unknown) date) leg cellulitis unknown) (unknown) (no (unknown) (unknown) Bleeding from (units ( unknown) date) PICC line unknown) (unknown) (no (unknown) (unknown) Blood Culture (units ( unknown) date) Stat unknown) (unknown) (no (unknown) (unknown) Blood Pressure (units (unknown) date) 146/80 H unknown) (unknown) (no (unknown) (unknown) Brother Mental (units (unknown) date) health problem unknown) (unknown) (no (unknown) (unknown) COVID19 -Nasal (units (unknown) date) RAPID/Pre-Proc unknown) Stat (unknown) (no (unknown) (unknown) CT abdomen (units (unk nown) date) pelvis w con Stat unknown) (unknown) (no (unknown) (unknown) Calcium (units (unkno wn) date) (8.4-10.2) mg/dL unknown) (unknown) (no (unknown) (unknown) Calcium 9.3 (units (un known) date) (8.4-10.2) mg/dL unknown) (unknown) (no (unknown) (unknown) Calcium Oxalate (units (unknown) date) Crystal unknown) (unknown) (no (unknown) (unknown) Calcium Oxalate (units (unknown) date) Crystal Few H unknown) (unknown) (no (unknown) (unknown) Carbon Dioxide (units (unknown) date) (22-32) mmol/L unknown) (unknown) (no (unknown) (unknown) Carbon Dioxide (units (unknown) date) 31 (22-32) mmol/L unknown) (unknown) (no (unknown) (unknown) Cardiac: Regular (units (unknown) date) rate and rhythm unknown) no murmurs no bruits (unknown) (no (unknown) (unknown) Cat scratch of (units (unknown) date) face unknown) (unknown) (no (unknown) (unknown) Cellulitis (units (unk nown) date) unknown) (unknown) (no (unknown) (unknown) Chief complaint: (units (unknown) date) Skin/Abscess/Fore unknown) ign Body (unknown) (no (unknown) (unknown) Chloride (units (unkno wn) date) (98-107) mmol/L unknown) (unknown) (no (unknown) (unknown) Chloride 100 (units (u nknown) date) (98-107) mmol/L unknown) (unknown) (no (unknown) (unknown) 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 (unknown) (no (unknown) (unknown) Chronic (units (unkno wn) date) osteomyelitis unknown) involving multiple sites (unknown) (no (unknown) (unknown) Chronic skin (units (u nknown) date) ulcer unknown) (unknown) (no (unknown) (unknown) Complete Blood (units (unknown) date) Count AUTO DIFF unknown) Stat (unknown) (no (unknown) (unknown) Comprehensive (units ( unknown) date) Metabolic Panel unknown) Stat (unknown) (no (unknown) (unknown) Contusion of (units (u nknown) date) left lower leg, unknown) initial encounter (unknown) (no (unknown) (unknown) Course (units (unkno wn) date) unknown) (unknown) (no (unknown) (unknown) Creatinine (units (unk nown) date) (0.52-1.04) mg/dL unknown) (unknown) (no (unknown) (unknown) Creatinine 0.48 (units (unknown) date) L (0.52-1.04) unknown) mg/dL (unknown) (no (unknown) (unknown) Cutaneous (units (unkn own) date) abscess of unknown) buttock (unknown) (no (unknown) (unknown) : 1955 (units (unknown) date) Acct:[id number] unknown) (unknown) (no (unknown) (unknown) Deep vein (units (unkn own) date) thrombosis unknown) (unknown) (no (unknown) (unknown) Departure (units (unkn own) date) unknown) (unknown) (no (unknown) (unknown) Discharge Plan (units (unknown) date) unknown) (unknown) (no (unknown) (unknown) Dizziness (units (unkn own) date) unknown) (unknown) (no (unknown) (unknown) EKG-12 Lead Stat (units (unknown) date) unknown) (unknown) (no (unknown) (unknown) ER Physician: (units ( unknown) date) Mone Baum unknown) (unknown) (no (unknown) (unknown) Eos # (Auto) (units (u nknown) date) (0-450) /uL unknown) (unknown) (no (unknown) (unknown) Eos # (Auto) 100 (units (unknown) date) (0-450) /uL unknown) (unknown) (no (unknown) (unknown) Eos % (Auto) (units (u nknown) date) (2-4) % unknown) (unknown) (no (unknown) (unknown) Eos % (Auto) 1.3 (units (unknown) date) L (2-4) % unknown) (unknown) (no (unknown) (unknown) Estimated GFR (units ( unknown) date) (>60) mL/min unknown) (unknown) (no (unknown) (unknown) Estimated GFR > (units (unknown) date) 60 (>60) mL/min unknown) (unknown) (no (unknown) (unknown) Exam (units (unkno wn) date) unknown) (unknown) (no (unknown) (unknown) Extremities: No (units (unknown) date) trauma, unknown) protective coverings are in place for her lower (unknown) (no (unknown) (unknown) Fall (units (unkno wn) date) unknown) (unknown) (no (unknown) (unknown) Family History (units (unknown) date) (Reviewed unknown) 12/25/21 @ 23:26 by Mone Baum MD) (unknown) (no (unknown) (unknown) General (units (unkno wn) date) unknown) (unknown) (no (unknown) (unknown) General: (units (unkno wn) date) Chronically unknown) ill-appearing but in no acute distress. Able to give a (unknown) (no (unknown) (unknown) GenericComposite (units (unknown) date) [Plt Count unknown) (150-400) X10^3/uL ] (unknown) (no (unknown) (unknown) GenericComposite (units (unknown) date) [Plt Count 237 unknown) (150-400) X10^3/uL ] (unknown) (no (unknown) (unknown) GenericComposite (units (unknown) date) [RBC (4.0-5.2) unknown) X10^6/uL ] (unknown) (no (unknown) (unknown) GenericComposite (units (unknown) date) [RBC 4.08 unknown) (4.0-5.2) X10^6/uL ] (unknown) (no (unknown) (unknown) GenericComposite (units (unknown) date) [WBC (4.5-11.0) unknown) X10^3/uL ] (unknown) (no (unknown) (unknown) GenericComposite (units (unknown) date) [WBC 6.6 unknown) (4.5-11.0) X10^3/uL ] (unknown) (no (unknown) (unknown) Globulin (units (unkno wn) date) (1.7-4.1) g/dL unknown) (unknown) (no (unknown) (unknown) Globulin 4.2 H (units (unknown) date) (1.7-4.1) g/dL unknown) (unknown) (no (unknown) (unknown) Glucose (80-110) (units (unknown) date) mg/dL unknown) (unknown) (no (unknown) (unknown) Glucose 100 (units (un known) date) (80-110) mg/dL unknown) (unknown) (no (unknown) (unknown) Grandfather (units (un known) date) Cancer unknown) (unknown) (no (unknown) (unknown) HEENT: Moist (units (u nknown) date) mucous membranes, unknown) normal sclera with reactive pupils, (unknown) (no (unknown) (unknown) HPI - (units (unkno wn) date) Skin/Abscess/Fore unknown) ign Bdy (unknown) (no (unknown) (unknown) HPI narrative: (units (unknown) date) unknown) (unknown) (no (unknown) (unknown) Hct (36-46) % (units ( unknown) date) unknown) (unknown) (no (unknown) (unknown) Hct 37.1 (36-46) (units (unknown) date) % unknown) (unknown) (no (unknown) (unknown) Hematoma of left (units (unknown) date) lower extremity unknown) (unknown) (no (unknown) (unknown) Hemiparesis (units (un known) date) unknown) (unknown) (no (unknown) (unknown) Hepatitis C (units (un known) date) () unknown) (unknown) (no (unknown) (unknown) Hgb (12.0-16.0) (units (unknown) date) g/dL unknown) (unknown) (no (unknown) (unknown) Hgb 12.1 (units (unkno wn) date) (12.0-16.0) g/dL unknown) (unknown) (no (unknown) (unknown) History of (units (unk nown) date) Present Illness unknown) (unknown) (no (unknown) (unknown) Neo Pritchard MD (units (unknown) date) [Primary Care unknown) Provider] - (unknown) (no (unknown) (unknown) Initial Vital (units ( unknown) date) Signs unknown) (unknown) (no (unknown) (unknown) Initial Vital (units ( unknown) date) Signs: unknown) (unknown) (no (unknown) (unknown) Lab Data (units (unkno wn) date) unknown) (unknown) (no (unknown) (unknown) Labs: (units (unkno wn) date) unknown) (unknown) (no (unknown) (unknown) Lactate (units (unkno wn) date) (0.7-2.1) mmol/L unknown) (unknown) (no (unknown) (unknown) Lactate 0.6 L (units ( unknown) date) (0.7-2.1) mmol/L unknown) (unknown) (no (unknown) (unknown) Lactate (Lactic (units (unknown) date) Acid) Stat unknown) (unknown) (no (unknown) (unknown) Left leg (units (unkno wn) date) cellulitis unknown) (unknown) (no (unknown) (unknown) Lymph # (Auto) (units (unknown) date) (9447-2315) /uL unknown) (unknown) (no (unknown) (unknown) Lymph # (Auto) (units (unknown) date) 2000 (9109-8243) unknown) /uL (unknown) (no (unknown) (unknown) Lymph % (Auto) (units (unknown) date) (25-40) % unknown) (unknown) (no (unknown) (unknown) Lymph % (Auto) (units (unknown) date) 30.4 (25-40) % unknown) (unknown) (no (unknown) (unknown) MCH (26-34) PG (units (unknown) date) unknown) (unknown) (no (unknown) (unknown) MCH 29.8 (26-34) (units (unknown) date) PG unknown) (unknown) (no (unknown) (unknown) MCHC (30-36) % (units (unknown) date) unknown) (unknown) (no (unknown) (unknown) MCHC 32.7 (units (unkn own) date) (30-36) % unknown) (unknown) (no (unknown) (unknown) MCV (80-100) fL (units (unknown) date) unknown) (unknown) (no (unknown) (unknown) MCV 91.0 (units (unkno wn) date) (80-100) fL unknown) (unknown) (no (unknown) (unknown) MDM - (units (unkno wn) date) Skin/Abscess/Fore unknown) ign Bdy (unknown) (no (unknown) (unknown) Magnesium (units (unkn own) date) (1.6-2.3) mg/dL unknown) (unknown) (no (unknown) (unknown) Magnesium 2.3 (units ( unknown) date) (1.6-2.3) mg/dL unknown) (unknown) (no (unknown) (unknown) Magnesium Stat (units (unknown) date) unknown) (unknown) (no (unknown) (unknown) Measles (units (unkno wn) date) unknown) (unknown) (no (unknown) (unknown) Medical History (units (unknown) date) (Reviewed unknown) 12/25/21 @ 23:26 by Mone Baum MD) (unknown) (no (unknown) (unknown) Mode of arrival: (units (unknown) date) Wheelchair unknown) (unknown) (no (unknown) (unknown) Jerome # (Auto) (units ( unknown) date) (0-900) /uL unknown) (unknown) (no (unknown) (unknown) Jerome # (Auto) (units ( unknown) date) 400 (0-900) /uL unknown) (unknown) (no (unknown) (unknown) Jerome % (Auto) (units ( unknown) date) (3-14) % unknown) (unknown) (no (unknown) (unknown) Jerome % (Auto) (units ( unknown) date) 5.4 (3-14) % unknown) (unknown) (no (unknown) (unknown) 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) (unknown) (no (unknown) (unknown) Multiple falls (units (unknown) date) unknown) (unknown) (no (unknown) (unknown) Narrative: (units (unk nown) date) unknown) (unknown) (no (unknown) (unknown) Neck: No JVD, (units ( unknown) date) supple unknown) (unknown) (no (unknown) (unknown) Neurologic: T12 (units (unknown) date) paraplegia, unknown) muscle atrophy in legs bilaterally (unknown) (no (unknown) (unknown) Neut # (Auto) (units ( unknown) date) (3477-8006) /uL unknown) (unknown) (no (unknown) (unknown) Neut # (Auto) (units ( unknown) date) 4100 (1980-8450) unknown) /uL (unknown) (no (unknown) (unknown) Neut % (Auto) (units ( unknown) date) (50-75) % unknown) (unknown) (no (unknown) (unknown) Neut % (Auto) (units ( unknown) date) 62.6 (50-75) % unknown) (unknown) (no (unknown) (unknown) No Action (units (unkn own) date) unknown) (unknown) (no (unknown) (unknown) No chest pain, (units (unknown) date) palpitations unknown) cough or dyspnea. (unknown) (no (unknown) (unknown) Ordered: (units (unkno wn) date) unknown) (unknown) (no (unknown) (unknown) Orders (units (unkno wn) date) unknown) (unknown) (no (unknown) (unknown) Oxygen Delivery (units (unknown) date) Method Room Air unknown) (unknown) (no (unknown) (unknown) PICC (units (o wn) date) (peripherally unknown) inserted central catheter) in place (unknown) (no (unknown) (unknown) Paraplegia (units (unk nown) date) (02/14/16) unknown) (unknown) (no (unknown) (unknown) Paraplegic (units (unk n) date) spinal paralysis unknown) (unknown) (no (unknown) (unknown) Patient History (units (unknown) date) unknown) (unknown) (no (unknown) (unknown) Patient: (units (unkno wn) date) Karina Diallo MR#: unknown) [id number] (unknown) (no (unknown) (unknown) Penicillins (units (un known) date) Allergy Unknown unknown) Verified 11/28/21 07:23 (unknown) (no (unknown) (unknown) Post-op bleeding (units (unknown) date) unknown) (unknown) (no (unknown) (unknown) Potassium (units (unkn own) date) (3.4-5.1) mmol/L unknown) (unknown) (no (unknown) (unknown) Potassium 3.6 (units ( unknown) date) (3.4-5.1) mmol/L unknown) (unknown) (no (unknown) (unknown) Prescriptions: (units (unknown) date) unknown) (unknown) (no (unknown) (unknown) Pressure ulcer (units (unknown) date) of contiguous unknown) site of back, buttock and hip, stage 2 (unknown) (no (unknown) (unknown) Pressure ulcer (units (unknown) date) of left thigh unknown) (unknown) (no (unknown) (unknown) Procalcitonin (units ( unknown) date) (<0.5) ng/mL unknown) (unknown) (no (unknown) (unknown) Procalcitonin (units ( unknown) date) 0.08 (<0.5) ng/mL unknown) (unknown) (no (unknown) (unknown) Procalcitonin (units ( unknown) date) Stat unknown) (unknown) (no (unknown) (unknown) Psych: (units (unkno wn) date) Cooperative, unknown) appropriate insight and affect (unknown) (no (unknown) (unknown) Pulse Oximetry (units (unknown) date) 99 unknown) (unknown) (no (unknown) (unknown) Pulse Rate 77 (units ( unknown) date) unknown) (unknown) (no (unknown) (unknown) RDW (11.6-14.8) (units (unknown) date) % unknown) (unknown) (no (unknown) (unknown) RDW 14.2 (units (unkno wn) date) (11.6-14.8) % unknown) (unknown) (no (unknown) (unknown) Referrals: (units (unk nown) date) unknown) (unknown) (no (unknown) (unknown) Related Data (units (u nknown) date) unknown) (unknown) (no (unknown) (unknown) Remainder of (units (u nknown) date) complete review unknown) of systems is otherwise unremarkable except for (unknown) (no (unknown) (unknown) Respiratory Rate (units (unknown) date) 18 unknown) (unknown) (no (unknown) (unknown) Respiratory: (units (u nknown) date) Lungs are clear unknown) to auscultation, no wheezing no rales no rhonchi. (unknown) (no (unknown) (unknown) Result diagrams: (units (unknown) date) unknown) (unknown) (no (unknown) (unknown) Retention of (units (u nknown) date) urine, unknown) unspecified (unknown) (no (unknown) (unknown) Review of (units (unkn own) date) Systems unknown) (unknown) (no (unknown) (unknown) SARS-CoV-2 (PCR) (units (unknown) date) (Negative) unknown) (unknown) (no (unknown) (unknown) SARS-CoV-2 (PCR) (units (unknown) date) Negative unknown) (Negative) (unknown) (no (unknown) (unknown) Seasonal (units (unkno wn) date) allergies unknown) (unknown) (no (unknown) (unknown) Signed By: (units (unk nown) date) unknown) (unknown) (no (unknown) (unknown) Sister Mental (units ( unknown) date) health problem unknown) (unknown) (no (unknown) (unknown) Skin ulcer of (units ( unknown) date) ankle unknown) (unknown) (no (unknown) (unknown) Skin: Thin, warm (units (unknown) date) and dry. Sacral unknown) area is closely examined. She has a (unknown) (no (unknown) (unknown) Smoking Status: (units (unknown) date) Former smoker unknown) (unknown) (no (unknown) (unknown) Smoking Status: (units (unknown) date) Former smoker unknown) (unknown) (no (unknown) (unknown) Social History (units (unknown) date) (Reviewed unknown) 12/25/21 @ 23:26 by Mone Baum MD) (unknown) (no (unknown) (unknown) Sodium (units (unkno wn) date) (137-145) mmol/L unknown) (unknown) (no (unknown) (unknown) Sodium 140 (units (unk nown) date) (137-145) mmol/L unknown) (unknown) (no (unknown) (unknown) Source: patient (units (unknown) date) and family unknown) (unknown) (no (unknown) (unknown) Stated (units (unkno wn) date) complaint: Wound unknown) on feet and bum smell (unknown) (no (unknown) (unknown) Substance Use (units ( unknown) date) Type: marijuana unknown) (unknown) (no (unknown) (unknown) Temperature 97.4 (units (unknown) date) F L 12/25/21 unknown) 21:43 (unknown) (no (unknown) (unknown) Temperature 97.4 (units (unknown) date) F L 98.3 F unknown) (unknown) (no (unknown) (unknown) Time Seen by (units (u nknown) date) Provider: unknown) 12/25/21 21:46 (unknown) (no (unknown) (unknown) Toe laceration (units (unknown) date) unknown) (unknown) (no (unknown) (unknown) Total Bilirubin (units (unknown) date) (0.2-1.3) mg/dL unknown) (unknown) (no (unknown) (unknown) Total Bilirubin (units (unknown) date) 0.4 (0.2-1.3) unknown) mg/dL (unknown) (no (unknown) (unknown) Total Protein (units ( unknown) date) (6.3-8.2) g/dL unknown) (unknown) (no (unknown) (unknown) Total Protein (units ( unknown) date) 8.6 H (6.3-8.2) unknown) g/dL (unknown) (no (unknown) (unknown) Troponin I (units (unk nown) date) (0.01-0.034) unknown) ng/mL (unknown) (no (unknown) (unknown) Troponin I < (units (u nknown) date) 0.012 unknown) (0.01-0.034) ng/mL (unknown) (no (unknown) (unknown) Troponin I Stat (units (unknown) date) unknown) (unknown) (no (unknown) (unknown) UTI (urinary (units (u nknown) date) tract infection) unknown) (unknown) (no (unknown) (unknown) UTI (urinary (units (u nknown) date) tract infection) unknown) due to Enterococcus (unknown) (no (unknown) (unknown) Ur Culture (units (unk nown) date) Indicated? unknown) (unknown) (no (unknown) (unknown) Ur Culture (units (unk nown) date) Indicated? unknown) Specimen cultured (unknown) (no (unknown) (unknown) Ur Leukocyte (units (u nknown) date) Esterase unknown) (NEGATIVE) (unknown) (no (unknown) (unknown) Ur Leukocyte (units (u nknown) date) Esterase 3+ H unknown) (NEGATIVE) (unknown) (no (unknown) (unknown) Ur Specific (units (un known) date) Duarte unknown) (1.000-1.035) (unknown) (no (unknown) (unknown) Ur Specific (units (un known) date) Duarte 1.010 unknown) (1.000-1.035) (unknown) (no (unknown) (unknown) Ur Squamous (units (un known) date) Epith Cells unknown) (0-5/HPF) (unknown) (no (unknown) (unknown) Ur Squamous (units (un known) date) Epith Cells 0-1 unknown) /hpf (0-5/HPF) (unknown) (no (unknown) (unknown) Urinalysis and (units (unknown) date) Microscopic Stat unknown) (unknown) (no (unknown) (unknown) Urine Appearance (units (unknown) date) unknown) (unknown) (no (unknown) (unknown) Urine Appearance (units (unknown) date) Cloudy unknown) (unknown) (no (unknown) (unknown) Urine Bacteria (units (unknown) date) (None) unknown) (unknown) (no (unknown) (unknown) Urine Bacteria (units (unknown) date) Many (>30) H unknown) (None) (unknown) (no (unknown) (unknown) Urine Bilirubin (units (unknown) date) (NEGATIVE) unknown) (unknown) (no (unknown) (unknown) Urine Bilirubin (units (unknown) date) Negative unknown) (NEGATIVE) (unknown) (no (unknown) (unknown) Urine Color (units (un known) date) unknown) (unknown) (no (unknown) (unknown) Urine Color (units (un known) date) Yellow unknown) (unknown) (no (unknown) (unknown) Urine Culture (units ( unknown) date) Stat unknown) (unknown) (no (unknown) (unknown) Urine Glucose (units ( unknown) date) (UA) (Negative) unknown) g/dL (unknown) (no (unknown) (unknown) Urine Glucose (units ( unknown) date) (UA) Negative unknown) (Negative) g/dL (unknown) (no (unknown) (unknown) Urine Ketones (units ( unknown) date) (NEGATIVE) unknown) (unknown) (no (unknown) (unknown) Urine Ketones (units ( unknown) date) Negative unknown) (NEGATIVE) (unknown) (no (unknown) (unknown) Urine Nitrate (units ( unknown) date) (Negative) unknown) (unknown) (no (unknown) (unknown) Urine Nitrate (units ( unknown) date) Positive H unknown) (Negative) (unknown) (no (unknown) (unknown) Urine Occult (units (u nknown) date) Blood (Negative) unknown) (unknown) (no (unknown) (unknown) Urine Occult (units (u nknown) date) Blood 3+ H unknown) (Negative) (unknown) (no (unknown) (unknown) Urine Protein (units ( unknown) date) (Negative) unknown) (unknown) (no (unknown) (unknown) Urine Protein 2+ (units (unknown) date) H (Negative) unknown) (unknown) (no (unknown) (unknown) Urine RBC (units (unkn own) date) (0-5/HPF) unknown) (unknown) (no (unknown) (unknown) Urine RBC (units (unkn own) date) 5-10/hpf H unknown) (0-5/HPF) (unknown) (no (unknown) (unknown) Urine (units (unkno wn) date) Urobilinogen unknown) (0.2) E.U./dL (unknown) (no (unknown) (unknown) Urine (units (unkno wn) date) Urobilinogen 0.2 unknown) (0.2) E.U./dL (unknown) (no (unknown) (unknown) Urine WBC (units (unkn own) date) (0-5/HPF) unknown) (unknown) (no (unknown) (unknown) Urine WBC (units (unkn own) date) >100/hpf H unknown) (0-5/HPF) (unknown) (no (unknown) (unknown) Urine pH (units (unkno wn) date) (4.5-8.0) unknown) (unknown) (no (unknown) (unknown) Urine pH 7.0 (units (u nknown) date) (4.5-8.0) unknown) (unknown) (no (unknown) (unknown) Vital Signs (units (un known) date) unknown) (unknown) (no (unknown) (unknown) Vital signs: (units (u nknown) date) unknown) (unknown) (no (unknown) (unknown) Wound of sacral (units (unknown) date) region, unknown) subsequent encounter (08/29/15) (unknown) (no (unknown) (unknown) [Embedded Image (units (unknown) date) Not Available] unknown) (unknown) (no (unknown) (unknown) alcohol intake (units (unknown) date) frequency: unknown) holidays/special occasions only (unknown) (no (unknown) (unknown) alcohol intake: (units (unknown) date) never unknown) (unknown) (no (unknown) (unknown) also does not (units ( unknown) date) seem to cause unknown) pain, good bowel tones, no flank pain (unknown) (no (unknown) (unknown) and buttock. (units (un known) date) There is a 2 x 2 unknown) cm area of slightly increased skin breakdown with (unknown) (no (unknown) (unknown) buttocks, feet (units ( unknown) date) and heels. She unknown) does a well-padded wheelchair and is doing a good (unknown) (no (unknown) (unknown) cefpodoxime 200 (units (unknown) date) mg tablet 200 mg unknown) PO Q12H #14 tabs 11/28/21 (unknown) (no (unknown) (unknown) chills and (units (unk nown) date) fevers, she is unknown) concerned that her wounds are infected. With her T12 (unknown) (no (unknown) (unknown) chlorhexidine (units ( unknown) date) Allergy Mild unknown) ITCHING Verified 11/28/21 07:23 (unknown) (no (unknown) (unknown) ciprofloxacin (units ( unknown) date) HCl 500 mg tablet unknown) 500 mg PO BID #20 tabs 12/07/21 (unknown) (no (unknown) (unknown) complete and (units (u nknown) date) coherent history. unknown) (unknown) (no (unknown) (unknown) dressed and (units (unk nown) date) protected. Toes unknown) are dressed with barrier cream protected and do not (unknown) (no (unknown) (unknown) ertapenem (units (unkn own) date) Allergy Severe unknown) SEIZURES Verified 11/28/21 07:23 (unknown) (no (unknown) (unknown) extremities. She (units (unknown) date) has some minor unknown) breakdown on her right heel that is covered (unknown) (no (unknown) (unknown) household (units (unkn own) date) members: none unknown) (unknown) (no (unknown) (unknown) hydrocodone 5 (units ( unknown) date) mg-acetaminophen unknown) 325 1 tab PO Q6H PRN pain #10 tabs 11/28/21 (unknown) (no (unknown) (unknown) increasing areas (units (unknown) date) of erythema or unknown) worsening skin breakdown. (unknown) (no (unknown) (unknown) job of keeping (units (unknown) date) the wounds unknown) covered but has not yet been able to establish care (unknown) (no (unknown) (unknown) lactose AdvReac (units (unknown) date) Unknown Verified unknown) 11/28/21 07:23 (unknown) (no (unknown) (unknown) levothyroxine 50 (units (unknown) date) mcg tablet 50 mcg unknown) PO DAILY #30 tabs 10/12/19 (unknown) (no (unknown) (unknown) linezolid (units (unkn own) date) [LINEZOLID] unknown) Allergy Mild Verified 11/28/21 07:23 (unknown) (no (unknown) (unknown) metronidazole (units ( unknown) date) 500 mg tablet 500 unknown) mg .Route .COMPLEX 03/17/20 (unknown) (no (unknown) (unknown) mg tablet (units (unkn own) date) unknown) (unknown) (no (unknown) (unknown) not complain of (units (unknown) date) abdominal pain unknown) but feels that she has been more bloated recently (unknown) (no (unknown) (unknown) oxybutynin (units (unk nown) date) chloride 5 mg unknown) tablet 10 mg PO TID 03/17/20 (unknown) (no (unknown) (unknown) paraplegia she (units (unknown) date) has incomplete unknown) sensory loss, some sensation of her abdomen does (unknown) (no (unknown) (unknown) red and there is (units (unknown) date) definitely no unknown) draining or tunneling abscesses, there is no (unknown) (no (unknown) (unknown) sennosides 8.6 (units (unknown) date) mg tablet (senna) unknown) 17.2 mg PO BEDTIME #60 tabs 03/17/20 (unknown) (no (unknown) (unknown) she has an (units (unk nown) date) indwelling Stephens unknown) catheter and is wondering if she might have a (unknown) (no (unknown) (unknown) significant (units (un known) date) amount of a unknown) well-healed scar tissue over the majority of her sacrum (unknown) (no (unknown) (unknown) significant odor (units (unknown) date) unknown) (unknown) (no (unknown) (unknown) that included in (units (unknown) date) the HPI. unknown) (unknown) (no (unknown) (unknown) urinary tract (units ( unknown) date) infection. She unknown) does not describe headaches, nausea or vomiting. (unknown) (no (unknown) (unknown) with wound care. (units (unknown) date) She states that unknown) over the last ?bit of time? seemingly days to Result panel 69 (unknown) (no (unknown) (unknown) (no value) (units (unk nown) date) unknown) (unknown) (no (unknown) (unknown) Date of Service: (units (unknown) date) 12/25/21 unknown) (unknown) (no (unknown) (unknown) (no value) (units (unk nown) date) unknown) (unknown) (no (unknown) (unknown) 12/25/21 22:15 (units (unknown) date) unknown) (unknown) (no (unknown) (unknown) 1 tab PO Q6H PRN (units (unknown) date) (Reason: pain) unknown) Qty: 10 0RF (unknown) (no (unknown) (unknown) 10 mg PO TID (units (u nknown) date) unknown) (unknown) (no (unknown) (unknown) 17.2 mg PO (units (unk nown) date) BEDTIME Qty: 60 unknown) 5RF (unknown) (no (unknown) (unknown) 200 mg PO Q12H (units (unknown) date) Qty: 14 0RF unknown) (unknown) (no (unknown) (unknown) 50 mcg PO DAILY (units (unknown) date) Qty: 30 5RF unknown) (unknown) (no (unknown) (unknown) 500 mg .ROUTE (units ( unknown) date) .COMPLEX unknown) (unknown) (no (unknown) (unknown) 500 mg PO BID (units ( unknown) date) Qty: 20 0RF unknown) (unknown) (no (unknown) (unknown) 500 mg crush and (units (unknown) date) apply topically unknown) to wound twice weekly; (unknown) (no (unknown) (unknown) Allergies (units (unkn own) date) unknown) (unknown) (no (unknown) (unknown) Diabetes (units (unkno wn) date) mellitus unknown) (unknown) (no (unknown) (unknown) ED Orders (units (unkn own) date) unknown) (unknown) (no (unknown) (unknown) Emergency Report (units (unknown) date) unknown) (unknown) (no (unknown) (unknown) Home Medications (units (unknown) date) unknown) (unknown) (no (unknown) (unknown) [facility] (units (unknown) date) [address] unknown) [place] [address] (unknown) (no (unknown) (unknown) Lab Results (units (un known) date) unknown) (unknown) (no (unknown) (unknown) Previous Rx's (units ( unknown) date) unknown) (unknown) (no (unknown) (unknown) Rx Instructions: (units (unknown) date) unknown) (unknown) (no (unknown) (unknown) Vital Signs - 8 (units (unknown) date) hr unknown) (unknown) (no (unknown) (unknown) must administer (units (unknown) date) with a meal/food unknown) (unknown) (no (unknown) (unknown) (no value) (units (unk nown) date) unknown) (unknown) (no (unknown) (unknown) 12/25/21 (units (unkno wn) date) 12/25/21 12/25/21 unknown) Range/Units (unknown) (no (unknown) (unknown) 12/25/21 (units (unkno wn) date) 12/25/21 unknown) Range/Units (unknown) (no (unknown) (unknown) 22:15 22:15 (units (un known) date) unknown) (unknown) (no (unknown) (unknown) 22:15 22:15 (units (un known) date) 22:15 unknown) (unknown) (no (unknown) (unknown) cefpodoxime 200 (units (unknown) date) mg tablet unknown) (unknown) (no (unknown) (unknown) ciprofloxacin (units ( unknown) date) HCl [Cipro] 500 unknown) mg tablet (unknown) (no (unknown) (unknown) hydrocodone-acet (units (unknown) date) aminophen 5-325 unknown) mg tablet (unknown) (no (unknown) (unknown) levothyroxine (units ( unknown) date) [Synthroid] 50 unknown) mcg tablet (unknown) (no (unknown) (unknown) metronidazole (units ( unknown) date) 500 mg tablet unknown) (unknown) (no (unknown) (unknown) oxybutynin (units (unk nown) date) chloride 5 mg unknown) tablet (unknown) (no (unknown) (unknown) sennosides (units (unk nown) date) [senna] 8.6 mg unknown) tablet (unknown) (no (unknown) (unknown) 12/25/21 (units (unkno wn) date) unknown) (unknown) (no (unknown) (unknown) Full and (units (unkno wn) date) symmetrical air unknown) movement (unknown) (no (unknown) (unknown) Medication (units (unk nown) date) Instructions unknown) Recorded (unknown) (no (unknown) (unknown) Medication (units (unk nown) date) Instructions unknown) Recorded Confirmed (unknown) (no (unknown) (unknown) a Stephens catheter (units (unknown) date) in place. None of unknown) the areas look like they are particularly (unknown) (no (unknown) (unknown) early (units (unkno wn) date) complaints. Urine unknown) at that time grew out Pseudomonas sensitive to (unknown) (no (unknown) (unknown) show significant (units (unknown) date) skin breakdown. unknown) There is no cellulitis, drainage or (unknown) (no (unknown) (unknown) underlying fat (units (unknown) date) tissue unknown) appreciated without discharge or erythema. She does have (unknown) (no (unknown) (unknown) (Cipro) (units (unkno wn) date) unknown) (unknown) (no (unknown) (unknown) (Synthroid) (units (un known) date) unknown) (unknown) (no (unknown) (unknown) 12/25/21 22:15 (units (unknown) date) unknown) (unknown) (no (unknown) (unknown) 12/25/21 22:19 (units (unknown) date) unknown) (unknown) (no (unknown) (unknown) 12/25/21 22:21 (units (unknown) date) unknown) (unknown) (no (unknown) (unknown) 12/25/21 22:23 (units (unknown) date) unknown) (unknown) (no (unknown) (unknown) 0807 (units (unkno wn) date) unknown) (unknown) (no (unknown) (unknown) 1-2 weeks, she (units (unknown) date) has been feeling unknown) increasingly worse with which she feels are (unknown) (no (unknown) (unknown) 21:43 12/25/21 (units (unknown) date) unknown) (unknown) (no (unknown) (unknown) 22:00 (units (unkno wn) date) unknown) (unknown) (no (unknown) (unknown) 66-year-old T12 (units (unknown) date) paraplegic, unknown) chronic indwelling Stephens catheter, pressure over her (unknown) (no (unknown) (unknown) 66-year-old (units (un known) date) woman with T12 unknown) paraplegia, chronic pressure wounds of her buttocks (unknown) (no (unknown) (unknown) AF (paroxysmal (units (unknown) date) atrial unknown) fibrillation) (unknown) (no (unknown) (unknown) ALT (<35) IU/L (units (unknown) date) unknown) (unknown) (no (unknown) (unknown) ALT 47 H (<35) (units (unknown) date) IU/L unknown) (unknown) (no (unknown) (unknown) AST (14-36) IU/L (units (unknown) date) unknown) (unknown) (no (unknown) (unknown) AST 53 H (14-36) (units (unknown) date) IU/L unknown) (unknown) (no (unknown) (unknown) Abdomen: Soft, (units (unknown) date) large mass in the unknown) right lower quadrant that is not mobile but (unknown) (no (unknown) (unknown) Abrasion, left (units (unknown) date) lower leg, unknown) initial encounter (unknown) (no (unknown) (unknown) Abscess and (units (un known) date) cellulitis of unknown) gluteal region (unknown) (no (unknown) (unknown) Acute UTI (units (unkn own) date) unknown) (unknown) (no (unknown) (unknown) Acute (units (unkno wn) date) hypokalemia unknown) (unknown) (no (unknown) (unknown) Acute narcotic (units (unknown) date) withdrawal unknown) without complication (unknown) (no (unknown) (unknown) Age/Sex: 66 / F (units (unknown) date) unknown) (unknown) (no (unknown) (unknown) Albumin (units (unkno wn) date) (3.5-5.0) g/dL unknown) (unknown) (no (unknown) (unknown) Albumin 4.4 (units (un known) date) (3.5-5.0) g/dL unknown) (unknown) (no (unknown) (unknown) Albumin/Globulin (units (unknown) date) Ratio (1.0-2.8) unknown) (unknown) (no (unknown) (unknown) Albumin/Globulin (units (unknown) date) Ratio 1.0 unknown) (1.0-2.8) (unknown) (no (unknown) (unknown) Alkaline (units (unkno wn) date) Phosphatase unknown) (38-126) U/L (unknown) (no (unknown) (unknown) Alkaline (units (unkno wn) date) Phosphatase 104 unknown) (38-126) U/L (unknown) (no (unknown) (unknown) Allergy/AdvReac (units (unknown) date) Type Severity unknown) Reaction Status Date / Time (unknown) (no (unknown) (unknown) Anemia (units (unkno wn) date) unknown) (unknown) (no (unknown) (unknown) BUN (7-17) mg/dL (units (unknown) date) unknown) (unknown) (no (unknown) (unknown) BUN 14 (7-17) (units ( unknown) date) mg/dL unknown) (unknown) (no (unknown) (unknown) BUN/Creatinine (units (unknown) date) Ratio (6-22) unknown) (unknown) (no (unknown) (unknown) BUN/Creatinine (units (unknown) date) Ratio 29.2 H unknown) (6-22) (unknown) (no (unknown) (unknown) Baso # (Auto) (units ( unknown) date) (0-100) /uL unknown) (unknown) (no (unknown) (unknown) Baso # (Auto) 0 (units (unknown) date) (0-100) /uL unknown) (unknown) (no (unknown) (unknown) Baso % (Auto) (units ( unknown) date) (0-2) % unknown) (unknown) (no (unknown) (unknown) Baso % (Auto) (units ( unknown) date) 0.3 (0-2) % unknown) (unknown) (no (unknown) (unknown) Bilateral lower (units (unknown) date) leg cellulitis unknown) (unknown) (no (unknown) (unknown) Bleeding from (units ( unknown) date) PICC line unknown) (unknown) (no (unknown) (unknown) Blood Culture (units ( unknown) date) Stat unknown) (unknown) (no (unknown) (unknown) Blood Pressure (units (unknown) date) 146/80 H unknown) (unknown) (no (unknown) (unknown) Brother Mental (units (unknown) date) health problem unknown) (unknown) (no (unknown) (unknown) COVID19 -Nasal (units (unknown) date) RAPID/Pre-Proc unknown) Stat (unknown) (no (unknown) (unknown) CT abdomen (units (unk nown) date) pelvis w con Stat unknown) (unknown) (no (unknown) (unknown) Calcium (units (unkno wn) date) (8.4-10.2) mg/dL unknown) (unknown) (no (unknown) (unknown) Calcium 9.3 (units (un known) date) (8.4-10.2) mg/dL unknown) (unknown) (no (unknown) (unknown) Calcium Oxalate (units (unknown) date) Crystal unknown) (unknown) (no (unknown) (unknown) Calcium Oxalate (units (unknown) date) Crystal Few H unknown) (unknown) (no (unknown) (unknown) Carbon Dioxide (units (unknown) date) (22-32) mmol/L unknown) (unknown) (no (unknown) (unknown) Carbon Dioxide (units (unknown) date) 31 (22-32) mmol/L unknown) (unknown) (no (unknown) (unknown) Cardiac: Regular (units (unknown) date) rate and rhythm unknown) no murmurs no bruits (unknown) (no (unknown) (unknown) Cat scratch of (units (unknown) date) face unknown) (unknown) (no (unknown) (unknown) Cellulitis (units (unk nown) date) unknown) (unknown) (no (unknown) (unknown) Chief complaint: (units (unknown) date) Skin/Abscess/Fore unknown) ign Body (unknown) (no (unknown) (unknown) Chloride (units (unkno wn) date) (98-107) mmol/L unknown) (unknown) (no (unknown) (unknown) Chloride 100 (units (u nknown) date) (98-107) mmol/L unknown) (unknown) (no (unknown) (unknown) 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 Was seen on December 07 for some (unknown) (no (unknown) (unknown) Complete Blood (units (unknown) date) Count AUTO DIFF unknown) Stat (unknown) (no (unknown) (unknown) Comprehensive (units ( unknown) date) Metabolic Panel unknown) Stat (unknown) (no (unknown) (unknown) Contusion of (units (u nknown) date) left lower leg, unknown) initial encounter (unknown) (no (unknown) (unknown) Course (units (unkno wn) date) unknown) (unknown) (no (unknown) (unknown) Creatinine (units (unk nown) date) (0.52-1.04) mg/dL unknown) (unknown) (no (unknown) (unknown) Creatinine 0.48 (units (unknown) date) L (0.52-1.04) unknown) mg/dL (unknown) (no (unknown) (unknown) Cutaneous (units (unkn own) date) abscess of unknown) buttock (unknown) (no (unknown) (unknown) : 1955 (units (unknown) date) Acct:[id number] unknown) (unknown) (no (unknown) (unknown) Deep vein (units (unkn own) date) thrombosis unknown) (unknown) (no (unknown) (unknown) Departure (units (unkn own) date) unknown) (unknown) (no (unknown) (unknown) Discharge Plan (units (unknown) date) unknown) (unknown) (no (unknown) (unknown) Dizziness (units (unkn own) date) unknown) (unknown) (no (unknown) (unknown) ECG Data (units (unkno wn) date) unknown) (unknown) (no (unknown) (unknown) EKG-12 Lead Stat (units (unknown) date) unknown) (unknown) (no (unknown) (unknown) ER Physician: (units ( unknown) date) Mone Baum unknown) (unknown) (no (unknown) (unknown) Eos # (Auto) (units (u nknown) date) (0-450) /uL unknown) (unknown) (no (unknown) (unknown) Eos # (Auto) 100 (units (unknown) date) (0-450) /uL unknown) (unknown) (no (unknown) (unknown) Eos % (Auto) (units (u nknown) date) (2-4) % unknown) (unknown) (no (unknown) (unknown) Eos % (Auto) 1.3 (units (unknown) date) L (2-4) % unknown) (unknown) (no (unknown) (unknown) Estimated GFR (units ( unknown) date) (>60) mL/min unknown) (unknown) (no (unknown) (unknown) Estimated GFR > (units (unknown) date) 60 (>60) mL/min unknown) (unknown) (no (unknown) (unknown) Exam (units (unkno wn) date) unknown) (unknown) (no (unknown) (unknown) Extremities: No (units (unknown) date) trauma, unknown) protective coverings are in place for her lower (unknown) (no (unknown) (unknown) Fall (units (unkno wn) date) unknown) (unknown) (no (unknown) (unknown) Family History (units (unknown) date) (Reviewed unknown) 12/25/21 @ 23:26 by Mone Baum MD) (unknown) (no (unknown) (unknown) General (units (unkno wn) date) unknown) (unknown) (no (unknown) (unknown) General: (units (unkno wn) date) Chronically unknown) ill-appearing but in no acute distress. Able to give a (unknown) (no (unknown) (unknown) GenericComposite (units (unknown) date) [Plt Count unknown) (150-400) X10^3/uL ] (unknown) (no (unknown) (unknown) GenericComposite (units (unknown) date) [Plt Count 237 unknown) (150-400) X10^3/uL ] (unknown) (no (unknown) (unknown) GenericComposite (units (unknown) date) [RBC (4.0-5.2) unknown) X10^6/uL ] (unknown) (no (unknown) (unknown) GenericComposite (units (unknown) date) [RBC 4.08 unknown) (4.0-5.2) X10^6/uL ] (unknown) (no (unknown) (unknown) GenericComposite (units (unknown) date) [WBC (4.5-11.0) unknown) X10^3/uL ] (unknown) (no (unknown) (unknown) GenericComposite (units (unknown) date) [WBC 6.6 unknown) (4.5-11.0) X10^3/uL ] (unknown) (no (unknown) (unknown) Globulin (units (unkno wn) date) (1.7-4.1) g/dL unknown) (unknown) (no (unknown) (unknown) Globulin 4.2 H (units (unknown) date) (1.7-4.1) g/dL unknown) (unknown) (no (unknown) (unknown) Glucose (80-110) (units (unknown) date) mg/dL unknown) (unknown) (no (unknown) (unknown) Glucose 100 (units (un known) date) (80-110) mg/dL unknown) (unknown) (no (unknown) (unknown) Grandfather (units (un known) date) Cancer unknown) (unknown) (no (unknown) (unknown) HEENT: Moist (units (u nknown) date) mucous membranes, unknown) normal sclera with reactive pupils, (unknown) (no (unknown) (unknown) HPI - (units (unkno wn) date) Skin/Abscess/Fore unknown) ign Bdy (unknown) (no (unknown) (unknown) HPI narrative: (units (unknown) date) unknown) (unknown) (no (unknown) (unknown) Hct (36-46) % (units ( unknown) date) unknown) (unknown) (no (unknown) (unknown) Hct 37.1 (36-46) (units (unknown) date) % unknown) (unknown) (no (unknown) (unknown) Hematoma of left (units (unknown) date) lower extremity unknown) (unknown) (no (unknown) (unknown) Hemiparesis (units (un known) date) unknown) (unknown) (no (unknown) (unknown) Hepatitis C (units (un known) date) () unknown) (unknown) (no (unknown) (unknown) Hgb (12.0-16.0) (units (unknown) date) g/dL unknown) (unknown) (no (unknown) (unknown) Hgb 12.1 (units (unkno wn) date) (12.0-16.0) g/dL unknown) (unknown) (no (unknown) (unknown) History of (units (unk nown) date) Present Illness unknown) (unknown) (no (unknown) (unknown) Neo Pritchard MD (units (unknown) date) [Primary Care unknown) Provider] - (unknown) (no (unknown) (unknown) Initial Vital (units ( unknown) date) Signs unknown) (unknown) (no (unknown) (unknown) Initial Vital (units ( unknown) date) Signs: unknown) (unknown) (no (unknown) (unknown) Interpretation: (units (unknown) date) unknown) (unknown) (no (unknown) (unknown) Lab Data (units (unkno wn) date) unknown) (unknown) (no (unknown) (unknown) Labs: (units (unkno wn) date) unknown) (unknown) (no (unknown) (unknown) Lactate (units (unkno wn) date) (0.7-2.1) mmol/L unknown) (unknown) (no (unknown) (unknown) Lactate 0.6 L (units ( unknown) date) (0.7-2.1) mmol/L unknown) (unknown) (no (unknown) (unknown) Lactate (Lactic (units (unknown) date) Acid) Stat unknown) (unknown) (no (unknown) (unknown) Left leg (units (unkno wn) date) cellulitis unknown) (unknown) (no (unknown) (unknown) Lymph # (Auto) (units (unknown) date) (5519-6513) /uL unknown) (unknown) (no (unknown) (unknown) Lymph # (Auto) (units (unknown) date) 2000 (7554-6413) unknown) /uL (unknown) (no (unknown) (unknown) Lymph % (Auto) (units (unknown) date) (25-40) % unknown) (unknown) (no (unknown) (unknown) Lymph % (Auto) (units (unknown) date) 30.4 (25-40) % unknown) (unknown) (no (unknown) (unknown) MCH (26-34) PG (units (unknown) date) unknown) (unknown) (no (unknown) (unknown) MCH 29.8 (26-34) (units (unknown) date) PG unknown) (unknown) (no (unknown) (unknown) MCHC (30-36) % (units (unknown) date) unknown) (unknown) (no (unknown) (unknown) MCHC 32.7 (units (unkn own) date) (30-36) % unknown) (unknown) (no (unknown) (unknown) MCV (80-100) fL (units (unknown) date) unknown) (unknown) (no (unknown) (unknown) MCV 91.0 (units (unkno wn) date) (80-100) fL unknown) (unknown) (no (unknown) (unknown) MDM - (units (unkno wn) date) Skin/Abscess/Fore unknown) ign Bdy (unknown) (no (unknown) (unknown) MDM Narrative (units ( unknown) date) unknown) (unknown) (no (unknown) (unknown) Magnesium (units (unkn own) date) (1.6-2.3) mg/dL unknown) (unknown) (no (unknown) (unknown) Magnesium 2.3 (units ( unknown) date) (1.6-2.3) mg/dL unknown) (unknown) (no (unknown) (unknown) Magnesium Stat (units (unknown) date) unknown) (unknown) (no (unknown) (unknown) Measles (units (unkno wn) date) unknown) (unknown) (no (unknown) (unknown) Medical History (units (unknown) date) (Reviewed unknown) 12/25/21 @ 23:26 by Mone Baum MD) (unknown) (no (unknown) (unknown) Medical decision (units (unknown) date) making narrative: unknown) (unknown) (no (unknown) (unknown) Mode of arrival: (units (unknown) date) Wheelchair unknown) (unknown) (no (unknown) (unknown) Jerome # (Auto) (units ( unknown) date) (0-900) /uL unknown) (unknown) (no (unknown) (unknown) Jerome # (Auto) (units ( unknown) date) 400 (0-900) /uL unknown) (unknown) (no (unknown) (unknown) Jerome % (Auto) (units ( unknown) date) (3-14) % unknown) (unknown) (no (unknown) (unknown) Jerome % (Auto) (units ( unknown) date) 5.4 (3-14) % unknown) (unknown) (no (unknown) (unknown) 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) (unknown) (no (unknown) (unknown) Multiple falls (units (unknown) date) unknown) (unknown) (no (unknown) (unknown) Narrative: (units (unk nown) date) unknown) (unknown) (no (unknown) (unknown) Neck: No JVD, (units ( unknown) date) supple unknown) (unknown) (no (unknown) (unknown) Neurologic: T12 (units (unknown) date) paraplegia, unknown) muscle atrophy in legs bilaterally (unknown) (no (unknown) (unknown) Neut # (Auto) (units ( unknown) date) (1071-8355) /uL unknown) (unknown) (no (unknown) (unknown) Neut # (Auto) (units ( unknown) date) 4100 (6767-2281) unknown) /uL (unknown) (no (unknown) (unknown) Neut % (Auto) (units ( unknown) date) (50-75) % unknown) (unknown) (no (unknown) (unknown) Neut % (Auto) (units ( unknown) date) 62.6 (50-75) % unknown) (unknown) (no (unknown) (unknown) No Action (units (unkn own) date) unknown) (unknown) (no (unknown) (unknown) No acute (units (unkno wn) date) ischemic changes unknown) (unknown) (no (unknown) (unknown) No chest pain, (units (unknown) date) palpitations unknown) cough or dyspnea. (unknown) (no (unknown) (unknown) Normal intervals (units (unknown) date) and axis unknown) (unknown) (no (unknown) (unknown) Ordered: (units (unkno wn) date) unknown) (unknown) (no (unknown) (unknown) Orders (units (unkno wn) date) unknown) (unknown) (no (unknown) (unknown) Oxygen Delivery (units (unknown) date) Method Room Air unknown) (unknown) (no (unknown) (unknown) PICC (units (unkno wn) date) (peripherally unknown) inserted central catheter) in place (unknown) (no (unknown) (unknown) Paraplegia (units (unk nown) date) (02/14/16) unknown) (unknown) (no (unknown) (unknown) Paraplegic (units (unk nown) date) spinal paralysis unknown) (unknown) (no (unknown) (unknown) Patient History (units (unknown) date) unknown) (unknown) (no (unknown) (unknown) Patient: (units (unkno wn) date) Karina Diallo MR#: unknown) [id number] (unknown) (no (unknown) (unknown) Penicillins (units (un known) date) Allergy Unknown unknown) Verified 11/28/21 07:23 (unknown) (no (unknown) (unknown) Post-op bleeding (units (unknown) date) unknown) (unknown) (no (unknown) (unknown) Potassium (units (unkn own) date) (3.4-5.1) mmol/L unknown) (unknown) (no (unknown) (unknown) Potassium 3.6 (units ( unknown) date) (3.4-5.1) mmol/L unknown) (unknown) (no (unknown) (unknown) Prescriptions: (units (unknown) date) unknown) (unknown) (no (unknown) (unknown) Pressure ulcer (units (unknown) date) of contiguous unknown) site of back, buttock and hip, stage 2 (unknown) (no (unknown) (unknown) Pressure ulcer (units (unknown) date) of left thigh unknown) (unknown) (no (unknown) (unknown) Procalcitonin (units ( unknown) date) (<0.5) ng/mL unknown) (unknown) (no (unknown) (unknown) Procalcitonin (units ( unknown) date) 0.08 (<0.5) ng/mL unknown) (unknown) (no (unknown) (unknown) Procalcitonin (units ( unknown) date) Stat unknown) (unknown) (no (unknown) (unknown) Psych: (units (unkno wn) date) Cooperative, unknown) appropriate insight and affect (unknown) (no (unknown) (unknown) Pulse Oximetry (units (unknown) date) 99 unknown) (unknown) (no (unknown) (unknown) Pulse Rate 77 (units ( unknown) date) unknown) (unknown) (no (unknown) (unknown) RDW (11.6-14.8) (units (unknown) date) % unknown) (unknown) (no (unknown) (unknown) RDW 14.2 (units (unkno wn) date) (11.6-14.8) % unknown) (unknown) (no (unknown) (unknown) Referrals: (units (unk nown) date) unknown) (unknown) (no (unknown) (unknown) Related Data (units (u nknown) date) unknown) (unknown) (no (unknown) (unknown) Remainder of (units (u nknown) date) complete review unknown) of systems is otherwise unremarkable except for (unknown) (no (unknown) (unknown) Respiratory Rate (units (unknown) date) 18 unknown) (unknown) (no (unknown) (unknown) Respiratory: (units (u nknown) date) Lungs are clear unknown) to auscultation, no wheezing no rales no rhonchi. (unknown) (no (unknown) (unknown) Result diagrams: (units (unknown) date) unknown) (unknown) (no (unknown) (unknown) Retention of (units (u nknown) date) urine, unknown) unspecified (unknown) (no (unknown) (unknown) Review of (units (unkn own) date) Systems unknown) (unknown) (no (unknown) (unknown) SARS-CoV-2 (PCR) (units (unknown) date) (Negative) unknown) (unknown) (no (unknown) (unknown) SARS-CoV-2 (PCR) (units (unknown) date) Negative unknown) (Negative) (unknown) (no (unknown) (unknown) Seasonal (units (unkno wn) date) allergies unknown) (unknown) (no (unknown) (unknown) Signed By: (units (unk nown) date) unknown) (unknown) (no (unknown) (unknown) Sinus rhythm at (units (unknown) date) a rate of 66 unknown) (unknown) (no (unknown) (unknown) Sister Mental (units ( unknown) date) health problem unknown) (unknown) (no (unknown) (unknown) Skin ulcer of (units ( unknown) date) ankle unknown) (unknown) (no (unknown) (unknown) Skin: Thin, warm (units (unknown) date) and dry. [place] unknown) area is closely examined. She has a (unknown) (no (unknown) (unknown) Smoking Status: (units (unknown) date) Former smoker unknown) (unknown) (no (unknown) (unknown) Smoking Status: (units (unknown) date) Former smoker unknown) (unknown) (no (unknown) (unknown) Social History (units (unknown) date) (Reviewed unknown) 12/25/21 @ 23:26 by Mone Baum MD) (unknown) (no (unknown) (unknown) Sodium (137-145) (units (unknown) date) mmol/L unknown) (unknown) (no (unknown) (unknown) Sodium 140 (units (unk nown) date) (137-145) mmol/L unknown) (unknown) (no (unknown) (unknown) Source: patient (units (unknown) date) and family unknown) (unknown) (no (unknown) (unknown) Stated (units (unkno wn) date) complaint: Wound unknown) on feet and bum smell (unknown) (no (unknown) (unknown) Substance Use (units ( unknown) date) Type: marijuana unknown) (unknown) (no (unknown) (unknown) Temperature 97.4 (units (unknown) date) F L 12/25/21 unknown) 21:43 (unknown) (no (unknown) (unknown) Temperature 97.4 (units (unknown) date) F L 98.3 F unknown) (unknown) (no (unknown) (unknown) Time Seen by (units (u nknown) date) Provider: unknown) 12/25/21 21:46 (unknown) (no (unknown) (unknown) Toe laceration (units (unknown) date) unknown) (unknown) (no (unknown) (unknown) Total Bilirubin (units (unknown) date) (0.2-1.3) mg/dL unknown) (unknown) (no (unknown) (unknown) Total Bilirubin (units (unknown) date) 0.4 (0.2-1.3) unknown) mg/dL (unknown) (no (unknown) (unknown) Total Protein (units ( unknown) date) (6.3-8.2) g/dL unknown) (unknown) (no (unknown) (unknown) Total Protein (units ( unknown) date) 8.6 H (6.3-8.2) unknown) g/dL (unknown) (no (unknown) (unknown) Troponin I (units (unk nown) date) (0.01-0.034) unknown) ng/mL (unknown) (no (unknown) (unknown) Troponin I < (units (u nknown) date) 0.012 unknown) (0.01-0.034) ng/mL (unknown) (no (unknown) (unknown) Troponin I Stat (units (unknown) date) unknown) (unknown) (no (unknown) (unknown) UTI (urinary (units (u nknown) date) tract infection) unknown) (unknown) (no (unknown) (unknown) UTI (urinary (units (u nknown) date) tract infection) unknown) due to Enterococcus (unknown) (no (unknown) (unknown) Ur Culture (units (unk nown) date) Indicated? unknown) (unknown) (no (unknown) (unknown) Ur Culture (units (unk nown) date) Indicated? unknown) Specimen cultured (unknown) (no (unknown) (unknown) Ur Leukocyte (units (u nknown) date) Esterase unknown) (NEGATIVE) (unknown) (no (unknown) (unknown) Ur Leukocyte (units (u nknown) date) Esterase 3+ H unknown) (NEGATIVE) (unknown) (no (unknown) (unknown) Ur Specific (units (un known) date) Duarte unknown) (1.000-1.035) (unknown) (no (unknown) (unknown) Ur Specific (units (un known) date) Duarte 1.010 unknown) (1.000-1.035) (unknown) (no (unknown) (unknown) Ur Squamous (units (un known) date) Epith Cells unknown) (0-5/HPF) (unknown) (no (unknown) (unknown) Ur Squamous (units (un known) date) Epith Cells 0-1 unknown) /hpf (0-5/HPF) (unknown) (no (unknown) (unknown) Urinalysis and (units (unknown) date) Microscopic Stat unknown) (unknown) (no (unknown) (unknown) Urine Appearance (units (unknown) date) unknown) (unknown) (no (unknown) (unknown) Urine Appearance (units (unknown) date) Cloudy unknown) (unknown) (no (unknown) (unknown) Urine Bacteria (units (unknown) date) (None) unknown) (unknown) (no (unknown) (unknown) Urine Bacteria (units (unknown) date) Many (>30) H unknown) (None) (unknown) (no (unknown) (unknown) Urine Bilirubin (units (unknown) date) (NEGATIVE) unknown) (unknown) (no (unknown) (unknown) Urine Bilirubin (units (unknown) date) Negative unknown) (NEGATIVE) (unknown) (no (unknown) (unknown) Urine Color (units (un known) date) unknown) (unknown) (no (unknown) (unknown) Urine Color (units (un known) date) Yellow unknown) (unknown) (no (unknown) (unknown) Urine Culture (units ( unknown) date) Stat unknown) (unknown) (no (unknown) (unknown) Urine Glucose (units ( unknown) date) (UA) (Negative) unknown) g/dL (unknown) (no (unknown) (unknown) Urine Glucose (units ( unknown) date) (UA) Negative unknown) (Negative) g/dL (unknown) (no (unknown) (unknown) Urine Ketones (units ( unknown) date) (NEGATIVE) unknown) (unknown) (no (unknown) (unknown) Urine Ketones (units ( unknown) date) Negative unknown) (NEGATIVE) (unknown) (no (unknown) (unknown) Urine Nitrate (units ( unknown) date) (Negative) unknown) (unknown) (no (unknown) (unknown) Urine Nitrate (units ( unknown) date) Positive H unknown) (Negative) (unknown) (no (unknown) (unknown) Urine Occult (units (u nknown) date) Blood (Negative) unknown) (unknown) (no (unknown) (unknown) Urine Occult (units (u nknown) date) Blood 3+ H unknown) (Negative) (unknown) (no (unknown) (unknown) Urine Protein (units ( unknown) date) (Negative) unknown) (unknown) (no (unknown) (unknown) Urine Protein 2+ (units (unknown) date) H (Negative) unknown) (unknown) (no (unknown) (unknown) Urine RBC (units (unkn own) date) (0-5/HPF) unknown) (unknown) (no (unknown) (unknown) Urine RBC (units (unkn own) date) 5-10/hpf H unknown) (0-5/HPF) (unknown) (no (unknown) (unknown) Urine (units (unkno wn) date) Urobilinogen unknown) (0.2) E.U./dL (unknown) (no (unknown) (unknown) Urine (units (unkno wn) date) Urobilinogen 0.2 unknown) (0.2) E.U./dL (unknown) (no (unknown) (unknown) Urine WBC (units (unkn own) date) (0-5/HPF) unknown) (unknown) (no (unknown) (unknown) Urine WBC (units (unkn own) date) >100/hpf H unknown) (0-5/HPF) (unknown) (no (unknown) (unknown) Urine pH (units (unkno wn) date) (4.5-8.0) unknown) (unknown) (no (unknown) (unknown) Urine pH 7.0 (units (u nknown) date) (4.5-8.0) unknown) (unknown) (no (unknown) (unknown) Vital Signs (units (un known) date) unknown) (unknown) (no (unknown) (unknown) Vital signs: (units (u nknown) date) unknown) (unknown) (no (unknown) (unknown) Wound of sacral (units (unknown) date) region, unknown) subsequent encounter (08/29/15) (unknown) (no (unknown) (unknown) [Embedded Image (units (unknown) date) Not Available] unknown) (unknown) (no (unknown) (unknown) alcohol intake (units (unknown) date) frequency: unknown) holidays/special occasions only (unknown) (no (unknown) (unknown) alcohol intake: (units (unknown) date) never unknown) (unknown) (no (unknown) (unknown) also does not (units ( unknown) date) seem to cause unknown) pain, good bowel tones, no flank pain (unknown) (no (unknown) (unknown) and buttock. (units (un known) date) There is a 2 x 2 unknown) cm area of slightly increased skin breakdown with (unknown) (no (unknown) (unknown) and heels that (units (unknown) date) are relatively unknown) clean and do not appear to be acutely infected (unknown) (no (unknown) (unknown) buttocks, feet (units ( unknown) date) and heels. She unknown) does a well-padded wheelchair and is doing a good (unknown) (no (unknown) (unknown) cefpodoxime 200 (units (unknown) date) mg tablet 200 mg unknown) PO Q12H #14 tabs 11/28/21 (unknown) (no (unknown) (unknown) chills and (units (unk nown) date) fevers, she is unknown) concerned that her wounds are infected. With her T12 (unknown) (no (unknown) (unknown) chlorhexidine (units ( unknown) date) Allergy Mild unknown) ITCHING Verified 11/28/21 07:23 (unknown) (no (unknown) (unknown) ciprofloxacin (units ( unknown) date) HCl 500 mg tablet unknown) 500 mg PO BID #20 tabs 12/07/21 (unknown) (no (unknown) (unknown) complete and (units (u nknown) date) coherent history. unknown) (unknown) (no (unknown) (unknown) dressed and (units (unk nown) date) protected. Toes unknown) are dressed with barrier cream protected and do not (unknown) (no (unknown) (unknown) ertapenem (units (unkn own) date) Allergy Severe unknown) SEIZURES Verified 11/28/21 07:23 (unknown) (no (unknown) (unknown) extremities. She (units (unknown) date) has some minor unknown) breakdown on her right heel that is covered (unknown) (no (unknown) (unknown) household (units (unkn own) date) members: none unknown) (unknown) (no (unknown) (unknown) hydrocodone 5 (units ( unknown) date) mg-acetaminophen unknown) 325 1 tab PO Q6H PRN pain #10 tabs 11/28/21 (unknown) (no (unknown) (unknown) increasing areas (units (unknown) date) of erythema or unknown) worsening skin breakdown. (unknown) (no (unknown) (unknown) job of keeping (units (unknown) date) the wounds unknown) covered but has not yet been able to establish care (unknown) (no (unknown) (unknown) lactose AdvReac (units (unknown) date) Unknown Verified unknown) 11/28/21 07:23 (unknown) (no (unknown) (unknown) levothyroxine 50 (units (unknown) date) mcg tablet 50 mcg unknown) PO DAILY #30 tabs 10/12/19 (unknown) (no (unknown) (unknown) linezolid (units (unkn own) date) [LINEZOLID] unknown) Allergy Mild Verified 11/28/21 07:23 (unknown) (no (unknown) (unknown) metronidazole (units ( unknown) date) 500 mg tablet 500 unknown) mg .Route .COMPLEX 03/17/20 (unknown) (no (unknown) (unknown) mg tablet (units (unkn own) date) unknown) (unknown) (no (unknown) (unknown) not complain of (units (unknown) date) abdominal pain unknown) but feels that she has been more bloated recently (unknown) (no (unknown) (unknown) oxybutynin (units (unk nown) date) chloride 5 mg unknown) tablet 10 mg PO TID 03/17/20 (unknown) (no (unknown) (unknown) paraplegia she (units (unknown) date) has incomplete unknown) sensory loss, some sensation of her abdomen does (unknown) (no (unknown) (unknown) red and there is (units (unknown) date) definitely no unknown) draining or tunneling abscesses, there is no (unknown) (no (unknown) (unknown) sennosides 8.6 (units (unknown) date) mg tablet (senna) unknown) 17.2 mg PO BEDTIME #60 tabs 03/17/20 (unknown) (no (unknown) (unknown) she has an (units (unk nown) date) indwelling Stephens unknown) catheter and is wondering if she might have a (unknown) (no (unknown) (unknown) significant (units (un known) date) amount of a unknown) well-healed scar tissue over the majority of her sacrum (unknown) (no (unknown) (unknown) significant odor (units (unknown) date) unknown) (unknown) (no (unknown) (unknown) that included in (units (unknown) date) the HPI. unknown) (unknown) (no (unknown) (unknown) today. (units (unkno wn) date) Indwelling unknown) catheter that does suggest significant abnormalities. (unknown) (no (unknown) (unknown) urinary tract (units ( unknown) date) infection. She unknown) does not describe headaches, nausea or vomiting. (unknown) (no (unknown) (unknown) with wound care. (units (unknown) date) She states that unknown) over the last ?bit of time? seemingly days to Result panel 70 (unknown) (no (unknown) (unknown) (no value) (units (unk nown) date) unknown) (unknown) (no (unknown) (unknown) Radiologist's (units ( unknown) date) Impression: unknown) (unknown) (no (unknown) (unknown) Date of Service: (units (unknown) date) 12/25/21 unknown) (unknown) (no (unknown) (unknown) (no value) (units (unk nown) date) unknown) (unknown) (no (unknown) (unknown) 12/25/21 22:15 (units (unknown) date) unknown) (unknown) (no (unknown) (unknown) 1 tab PO Q6H PRN (units (unknown) date) (Reason: pain) Qty: unknown) 10 0RF (unknown) (no (unknown) (unknown) 10 mg PO TID (units (u nknown) date) unknown) (unknown) (no (unknown) (unknown) 17.2 mg PO BEDTIME (units (unknown) date) Qty: 60 5RF unknown) (unknown) (no (unknown) (unknown) 200 mg PO Q12H (units (unknown) date) Qty: 14 0RF unknown) (unknown) (no (unknown) (unknown) 50 mcg PO DAILY (units (unknown) date) Qty: 30 5RF unknown) (unknown) (no (unknown) (unknown) 500 mg .ROUTE (units ( unknown) date) .COMPLEX unknown) (unknown) (no (unknown) (unknown) 500 mg PO BID Qty: (units (unknown) date) 20 0RF unknown) (unknown) (no (unknown) (unknown) 500 mg crush and (units (unknown) date) apply topically to unknown) wound twice weekly; (unknown) (no (unknown) (unknown) Allergies (units (unkn own) date) unknown) (unknown) (no (unknown) (unknown) Diabetes mellitus (units (unknown) date) unknown) (unknown) (no (unknown) (unknown) ED Orders (units (unkn own) date) unknown) (unknown) (no (unknown) (unknown) Emergency Report (units (unknown) date) unknown) (unknown) (no (unknown) (unknown) Home Medications (units (unknown) date) unknown) (unknown) (no (unknown) (unknown) [facility] (units (unknown) date) [address] [place] [address] unknown) [place] [address] (unknown) (no (unknown) (unknown) Lab Results (units (un known) date) unknown) (unknown) (no (unknown) (unknown) Previous Rx's (units ( unknown) date) unknown) (unknown) (no (unknown) (unknown) Rx Instructions: (units (unknown) date) unknown) (unknown) (no (unknown) (unknown) Vital Signs - 8 hr (units (unknown) date) unknown) (unknown) (no (unknown) (unknown) must administer (units (unknown) date) with a meal/food unknown) (unknown) (no (unknown) (unknown) (no value) (units (unk nown) date) unknown) (unknown) (no (unknown) (unknown) 12/25/21 12/25/21 (units (unknown) date) 12/25/21 unknown) Range/Units (unknown) (no (unknown) (unknown) 12/25/21 12/25/21 (units (unknown) date) Range/Units unknown) (unknown) (no (unknown) (unknown) 22:15 22:15 (units (un known) date) unknown) (unknown) (no (unknown) (unknown) 22:15 22:15 22:15 (units (unknown) date) unknown) (unknown) (no (unknown) (unknown) cefpodoxime 200 mg (units (unknown) date) tablet unknown) (unknown) (no (unknown) (unknown) ciprofloxacin HCl (units (unknown) date) [Cipro] 500 mg unknown) tablet (unknown) (no (unknown) (unknown) hydrocodone-acetam (units (unknown) date) inophen 5-325 mg unknown) tablet (unknown) (no (unknown) (unknown) levothyroxine (units ( unknown) date) [Synthroid] 50 mcg unknown) tablet (unknown) (no (unknown) (unknown) metronidazole 500 (units (unknown) date) mg tablet unknown) (unknown) (no (unknown) (unknown) oxybutynin (units (unk nown) date) chloride 5 mg unknown) tablet (unknown) (no (unknown) (unknown) sennosides [senna] (units (unknown) date) 8.6 mg tablet unknown) (unknown) (no (unknown) (unknown) 12/25/21 (units (unkno wn) date) unknown) (unknown) (no (unknown) (unknown) Full and (units (unkno wn) date) symmetrical air unknown) movement (unknown) (no (unknown) (unknown) Medication (units (unk nown) date) Instructions unknown) Recorded (unknown) (no (unknown) (unknown) Medication (units (unk nown) date) Instructions unknown) Recorded Confirmed (unknown) (no (unknown) (unknown) a Stephens catheter (units (unknown) date) in place. None of unknown) the areas look like they are particularly (unknown) (no (unknown) (unknown) early complaints. (units (unknown) date) Urine at that time unknown) grew out Pseudomonas sensitive to (unknown) (no (unknown) (unknown) show significant (units (unknown) date) skin breakdown. unknown) There is no cellulitis, drainage or (unknown) (no (unknown) (unknown) underlying fat (units (unknown) date) tissue appreciated unknown) without discharge or erythema. She does have (unknown) (no (unknown) (unknown) (Cipro) (units (unkno wn) date) unknown) (unknown) (no (unknown) (unknown) (Synthroid) (units (un known) date) unknown) (unknown) (no (unknown) (unknown) 12/25/21 22:15 (units (unknown) date) unknown) (unknown) (no (unknown) (unknown) 12/25/21 22:19 (units (unknown) date) unknown) (unknown) (no (unknown) (unknown) 12/25/21 22:21 (units (unknown) date) unknown) (unknown) (no (unknown) (unknown) 12/25/21 22:53 (units (unknown) date) unknown) (unknown) (no (unknown) (unknown) 0807 (units (unkno wn) date) unknown) (unknown) (no (unknown) (unknown) 1-2 weeks, she has (units (unknown) date) been feeling unknown) increasingly worse with which she feels are (unknown) (no (unknown) (unknown) 1. Proximal (units (un known) date) colonic obstipation unknown) may account for right lower quadrant palpable (unknown) (no (unknown) (unknown) 2. Marked rectal (units (unknown) date) obstipation, worse unknown) compared to the prior study. (unknown) (no (unknown) (unknown) 21:43 12/25/21 (units (unknown) date) unknown) (unknown) (no (unknown) (unknown) 22:00 (units (unkno wn) date) unknown) (unknown) (no (unknown) (unknown) 3. Chronic sacral (units (unknown) date) decubitus ulcer, unknown) posterior subluxation of both hip joints, (unknown) (no (unknown) (unknown) 4. Mild (units (unkno wn) date) hepatomegaly and unknown) hepatic steatosis. (unknown) (no (unknown) (unknown) 5. (units (unkno wn) date) Cholelithiasis.? unknown) (unknown) (no (unknown) (unknown) 66-year-old T12 (units (unknown) date) paraplegic, chronic unknown) indwelling Stephens catheter, pressure over her (unknown) (no (unknown) (unknown) 66-year-old woman (units (unknown) date) with T12 unknown) paraplegia, chronic pressure wounds of her buttocks (unknown) (no (unknown) (unknown) ? (units (unkno wn) date) unknown) (unknown) (no (unknown) (unknown) ABDOMEN: (units (unkno wn) date) unknown) (unknown) (no (unknown) (unknown) AF (paroxysmal (units (unknown) date) atrial unknown) fibrillation) (unknown) (no (unknown) (unknown) ALT (<35) IU/L (units (unknown) date) unknown) (unknown) (no (unknown) (unknown) ALT 47 H (<35) (units (unknown) date) IU/L unknown) (unknown) (no (unknown) (unknown) AST (14-36) IU/L (units (unknown) date) unknown) (unknown) (no (unknown) (unknown) AST 53 H (14-36) (units (unknown) date) IU/L unknown) (unknown) (no (unknown) (unknown) Abdomen: Soft, (units (unknown) date) large mass in the unknown) right lower quadrant that is not mobile but (unknown) (no (unknown) (unknown) Abdominal Nodes:? (units (unknown) date) No retroperitoneal unknown) or mesenteric adenopathy by size criteria.? (unknown) (no (unknown) (unknown) Abrasion, left (units (unknown) date) lower leg, initial unknown) encounter (unknown) (no (unknown) (unknown) Abscess and (units (un known) date) cellulitis of unknown) gluteal region (unknown) (no (unknown) (unknown) Acute UTI (units (unkn own) date) unknown) (unknown) (no (unknown) (unknown) Acute hypokalemia (units (unknown) date) unknown) (unknown) (no (unknown) (unknown) Acute narcotic (units (unknown) date) withdrawal without unknown) complication (unknown) (no (unknown) (unknown) Adrenal Glands:? (units (unknown) date) No adrenal masses. unknown) (unknown) (no (unknown) (unknown) Age/Sex: 66 / F (units (unknown) date) unknown) (unknown) (no (unknown) (unknown) Albumin (3.5-5.0) (units (unknown) date) g/dL unknown) (unknown) (no (unknown) (unknown) Albumin 4.4 (units (un known) date) (3.5-5.0) g/dL unknown) (unknown) (no (unknown) (unknown) Albumin/Globulin (units (unknown) date) Ratio (1.0-2.8) unknown) (unknown) (no (unknown) (unknown) Albumin/Globulin (units (unknown) date) Ratio 1.0 (1.0-2.8) unknown) (unknown) (no (unknown) (unknown) Alkaline (units (unkno wn) date) Phosphatase unknown) (38-126) U/L (unknown) (no (unknown) (unknown) Alkaline (units (unkno wn) date) Phosphatase 104 unknown) (38-126) U/L (unknown) (no (unknown) (unknown) Allergy/AdvReac (units (unknown) date) Type Severity unknown) Reaction Status Date / Time (unknown) (no (unknown) (unknown) Anemia (units (unkno wn) date) unknown) (unknown) (no (unknown) (unknown) BUN (7-17) mg/dL (units (unknown) date) unknown) (unknown) (no (unknown) (unknown) BUN 14 (7-17) (units ( unknown) date) mg/dL unknown) (unknown) (no (unknown) (unknown) BUN/Creatinine (units (unknown) date) Ratio (6-22) unknown) (unknown) (no (unknown) (unknown) BUN/Creatinine (units (unknown) date) Ratio 29.2 H (6-22) unknown) (unknown) (no (unknown) (unknown) Baso # (Auto) (units ( unknown) date) (0-100) /uL unknown) (unknown) (no (unknown) (unknown) Baso # (Auto) 0 (units (unknown) date) (0-100) /uL unknown) (unknown) (no (unknown) (unknown) Baso % (Auto) (units ( unknown) date) (0-2) % unknown) (unknown) (no (unknown) (unknown) Baso % (Auto) 0.3 (units (unknown) date) (0-2) % unknown) (unknown) (no (unknown) (unknown) Bilateral lower (units (unknown) date) leg cellulitis unknown) (unknown) (no (unknown) (unknown) Biliary ducts:? No (units (unknown) date) visible biliary unknown) dilatation. (unknown) (no (unknown) (unknown) Bladder:? (units (unkn own) date) Diffusely unknown) decompressed. (unknown) (no (unknown) (unknown) Bleeding from PICC (units (unknown) date) line unknown) (unknown) (no (unknown) (unknown) Blood Culture Stat (units (unknown) date) unknown) (unknown) (no (unknown) (unknown) Blood Pressure (units (unknown) date) 146/80 H unknown) (unknown) (no (unknown) (unknown) Bones:? Spinal (units (unknown) date) fusion hardware unknown) throughout the lower thoracic and lumbar spine.? (unknown) (no (unknown) (unknown) Brother Mental (units (unknown) date) health problem unknown) (unknown) (no (unknown) (unknown) COVID19 -Nasal (units (unknown) date) RAPID/Pre-Proc Stat unknown) (unknown) (no (unknown) (unknown) CT abdomen pelvis (units (unknown) date) w con Stat unknown) (unknown) (no (unknown) (unknown) CT scan - (units (unkn own) date) abdomen/pelvis: unknown) (unknown) (no (unknown) (unknown) Calcium (8.4-10.2) (units (unknown) date) mg/dL unknown) (unknown) (no (unknown) (unknown) Calcium 9.3 (units (un known) date) (8.4-10.2) mg/dL unknown) (unknown) (no (unknown) (unknown) Calcium Oxalate (units (unknown) date) Crystal unknown) (unknown) (no (unknown) (unknown) Calcium Oxalate (units (unknown) date) Crystal Few H unknown) (unknown) (no (unknown) (unknown) Carbon Dioxide (units (unknown) date) (22-32) mmol/L unknown) (unknown) (no (unknown) (unknown) Carbon Dioxide 31 (units (unknown) date) (22-32) mmol/L unknown) (unknown) (no (unknown) (unknown) Cardiac: Regular (units (unknown) date) rate and rhythm no unknown) murmurs no bruits (unknown) (no (unknown) (unknown) Cat scratch of (units (unknown) date) face unknown) (unknown) (no (unknown) (unknown) Cellulitis (units (unk nown) date) unknown) (unknown) (no (unknown) (unknown) Chief complaint: (units (unknown) date) Skin/Abscess/Foreig unknown) n Body (unknown) (no (unknown) (unknown) Chloride (98-107) (units (unknown) date) mmol/L unknown) (unknown) (no (unknown) (unknown) Chloride 100 (units (u nknown) date) (98-107) mmol/L unknown) (unknown) (no (unknown) (unknown) 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 Was seen on December 07 for some (unknown) (no (unknown) (unknown) Complete Blood (units (unknown) date) Count AUTO DIFF unknown) Stat (unknown) (no (unknown) (unknown) Comprehensive (units ( unknown) date) Metabolic Panel unknown) Stat (unknown) (no (unknown) (unknown) Contusion of left (units (unknown) date) lower leg, initial unknown) encounter (unknown) (no (unknown) (unknown) Course (units (unkno wn) date) unknown) (unknown) (no (unknown) (unknown) Creatinine (units (unk nown) date) (0.52-1.04) mg/dL unknown) (unknown) (no (unknown) (unknown) Creatinine 0.48 L (units (unknown) date) (0.52-1.04) mg/dL unknown) (unknown) (no (unknown) (unknown) Cutaneous abscess (units (unknown) date) of buttock unknown) (unknown) (no (unknown) (unknown) : 1955 (units (unknown) date) Acct:[id number] unknown) (unknown) (no (unknown) (unknown) Deep vein (units (unkn own) date) thrombosis unknown) (unknown) (no (unknown) (unknown) Departure (units (unkn own) date) unknown) (unknown) (no (unknown) (unknown) Dictated by: (units (u nknown) date) Liset Iraheta M.D. unknown) on 12/25/2021 at 23:30 ? ? (unknown) (no (unknown) (unknown) Discharge Plan (units (unknown) date) unknown) (unknown) (no (unknown) (unknown) Dizziness (units (unkn own) date) unknown) (unknown) (no (unknown) (unknown) ECG Data (units (unkno wn) date) unknown) (unknown) (no (unknown) (unknown) EKG-12 Lead Stat (units (unknown) date) unknown) (unknown) (no (unknown) (unknown) ER Physician: (units ( unknown) date) Mone Baum MD unknown) (unknown) (no (unknown) (unknown) Eos # (Auto) (units (u nknown) date) (0-450) /uL unknown) (unknown) (no (unknown) (unknown) Eos # (Auto) 100 (units (unknown) date) (0-450) /uL unknown) (unknown) (no (unknown) (unknown) Eos % (Auto) (2-4) (units (unknown) date) % unknown) (unknown) (no (unknown) (unknown) Eos % (Auto) 1.3 L (units (unknown) date) (2-4) % unknown) (unknown) (no (unknown) (unknown) Estimated GFR (units ( unknown) date) (>60) mL/min unknown) (unknown) (no (unknown) (unknown) Estimated GFR > 60 (units (unknown) date) (>60) mL/min unknown) (unknown) (no (unknown) (unknown) Exam (units (unkno wn) date) unknown) (unknown) (no (unknown) (unknown) Extremities: No (units (unknown) date) trauma, protective unknown) coverings are in place for her lower (unknown) (no (unknown) (unknown) FINDINGS:? (units (unk nown) date) unknown) (unknown) (no (unknown) (unknown) Fall (units (unkno wn) date) unknown) (unknown) (no (unknown) (unknown) Family History (units (unknown) date) (Reviewed 12/25/21 unknown) @ 23:26 by Mone Baum MD) (unknown) (no (unknown) (unknown) Gallbladder:? (units ( unknown) date) Small dependently unknown) layering calcified stones near the gallbladder (unknown) (no (unknown) (unknown) General (units (unkno wn) date) unknown) (unknown) (no (unknown) (unknown) General: (units (unkno wn) date) Chronically unknown) ill-appearing but in no acute distress. Able to give a (unknown) (no (unknown) (unknown) GenericComposite[P (units (unknown) date) lt Count (150-400) unknown) X10^3/uL ] (unknown) (no (unknown) (unknown) GenericComposite[P (units (unknown) date) lt Count 237 unknown) (150-400) X10^3/uL ] (unknown) (no (unknown) (unknown) GenericComposite[R (units (unknown) date) BC (4.0-5.2) unknown) X10^6/uL ] (unknown) (no (unknown) (unknown) GenericComposite[R (units (unknown) date) BC 4.08 (4.0-5.2) unknown) X10^6/uL ] (unknown) (no (unknown) (unknown) GenericComposite[W (units (unknown) date) BC (4.5-11.0) unknown) X10^3/uL ] (unknown) (no (unknown) (unknown) GenericComposite[W (units (unknown) date) BC 6.6 (4.5-11.0) unknown) X10^3/uL ] (unknown) (no (unknown) (unknown) Globulin (1.7-4.1) (units (unknown) date) g/dL unknown) (unknown) (no (unknown) (unknown) Globulin 4.2 H (units (unknown) date) (1.7-4.1) g/dL unknown) (unknown) (no (unknown) (unknown) Glucose (80-110) (units (unknown) date) mg/dL unknown) (unknown) (no (unknown) (unknown) Glucose 100 (units (un known) date) (80-110) mg/dL unknown) (unknown) (no (unknown) (unknown) Grandfather Cancer (units (unknown) date) unknown) (unknown) (no (unknown) (unknown) HEENT: Moist (units (u nknown) date) mucous membranes, unknown) normal sclera with reactive pupils, (unknown) (no (unknown) (unknown) HPI - (units (unkno wn) date) Skin/Abscess/Foreig unknown) n Bdy (unknown) (no (unknown) (unknown) HPI narrative: (units (unknown) date) unknown) (unknown) (no (unknown) (unknown) Hct (36-46) % (units ( unknown) date) unknown) (unknown) (no (unknown) (unknown) Hct 37.1 (36-46) % (units (unknown) date) unknown) (unknown) (no (unknown) (unknown) Heart:? Mild (units (u nknown) date) cardiomegaly. unknown) (unknown) (no (unknown) (unknown) Hematoma of left (units (unknown) date) lower extremity unknown) (unknown) (no (unknown) (unknown) Hemiparesis (units (un known) date) unknown) (unknown) (no (unknown) (unknown) Hepatitis C (units (un known) date) () unknown) (unknown) (no (unknown) (unknown) Hgb (12.0-16.0) (units (unknown) date) g/dL unknown) (unknown) (no (unknown) (unknown) Hgb 12.1 (units (unkno wn) date) (12.0-16.0) g/dL unknown) (unknown) (no (unknown) (unknown) History of Present (units (unknown) date) Illness unknown) (unknown) (no (unknown) (unknown) Neo Pritchard MD (units (unknown) date) [Primary Care unknown) Provider] - (unknown) (no (unknown) (unknown) IMPRESSION:? (units (u nknown) date) unknown) (unknown) (no (unknown) (unknown) Image quality:? (units (unknown) date) Excellent.? unknown) (unknown) (no (unknown) (unknown) Imaging Data (units (u nknown) date) unknown) (unknown) (no (unknown) (unknown) Initial Vital (units ( unknown) date) Signs unknown) (unknown) (no (unknown) (unknown) Initial Vital (units ( unknown) date) Signs: unknown) (unknown) (no (unknown) (unknown) Interpretation: (units (unknown) date) unknown) (unknown) (no (unknown) (unknown) Kidneys and (units (un known) date) Ureters:? Symmetric unknown) uptake of IV contrast.? No suspicious mass.? (unknown) (no (unknown) (unknown) Lab Data (units (unkno wn) date) unknown) (unknown) (no (unknown) (unknown) Labs: (units (unkno wn) date) unknown) (unknown) (no (unknown) (unknown) Lactate (0.7-2.1) (units (unknown) date) mmol/L unknown) (unknown) (no (unknown) (unknown) Lactate 0.6 L (units ( unknown) date) (0.7-2.1) mmol/L unknown) (unknown) (no (unknown) (unknown) Lactate (Lactic (units (unknown) date) Acid) Stat unknown) (unknown) (no (unknown) (unknown) Left leg (units (unkno wn) date) cellulitis unknown) (unknown) (no (unknown) (unknown) Liver:? Mild (units (u nknown) date) hepatomegaly and unknown) hepatic steatosis.? No focal lesions. (unknown) (no (unknown) (unknown) Lung bases:? No (units (unknown) date) effusions or unknown) consolidations. (unknown) (no (unknown) (unknown) Lymph # (Auto) (units (unknown) date) ([id number]) /uL unknown) (unknown) (no (unknown) (unknown) Lymph # (Auto) (units (unknown) date) 2000 ([id number]) unknown) /uL (unknown) (no (unknown) (unknown) Lymph % (Auto) (units (unknown) date) (25-40) % unknown) (unknown) (no (unknown) (unknown) Lymph % (Auto) (units (unknown) date) 30.4 (25-40) % unknown) (unknown) (no (unknown) (unknown) MCH (26-34) PG (units (unknown) date) unknown) (unknown) (no (unknown) (unknown) MCH 29.8 (26-34) (units (unknown) date) PG unknown) (unknown) (no (unknown) (unknown) MCHC (30-36) % (units (unknown) date) unknown) (unknown) (no (unknown) (unknown) MCHC 32.7 (30-36) (units (unknown) date) % unknown) (unknown) (no (unknown) (unknown) MCV (80-100) fL (units (unknown) date) unknown) (unknown) (no (unknown) (unknown) MCV 91.0 (80-100) (units (unknown) date) fL unknown) (unknown) (no (unknown) (unknown) MDM - (units (unkno wn) date) Skin/Abscess/Foreig unknown) n Bdy (unknown) (no (unknown) (unknown) MDM Narrative (units ( unknown) date) unknown) (unknown) (no (unknown) (unknown) Magnesium (units (unkn own) date) (1.6-2.3) mg/dL unknown) (unknown) (no (unknown) (unknown) Magnesium 2.3 (units ( unknown) date) (1.6-2.3) mg/dL unknown) (unknown) (no (unknown) (unknown) Magnesium Stat (units (unknown) date) unknown) (unknown) (no (unknown) (unknown) Measles (units (unkno wn) date) unknown) (unknown) (no (unknown) (unknown) Medical History (units (unknown) date) (Updated 12/26/21 @ unknown) 00:00 by ) (unknown) (no (unknown) (unknown) Medical decision (units (unknown) date) making narrative: unknown) (unknown) (no (unknown) (unknown) Miscellaneous:? (units (unknown) date) Prominent, chronic unknown) left sacral decubitus ulcer extending to the (unknown) (no (unknown) (unknown) Mode of arrival: (units (unknown) date) Wheelchair unknown) (unknown) (no (unknown) (unknown) Moderate (units (unkno wn) date) unknown) (unknown) (no (unknown) (unknown) Jerome # (Auto) (units ( unknown) date) (0-900) /uL unknown) (unknown) (no (unknown) (unknown) Jerome # (Auto) 400 (units (unknown) date) (0-900) /uL unknown) (unknown) (no (unknown) (unknown) Jerome % (Auto) (units ( unknown) date) (3-14) % unknown) (unknown) (no (unknown) (unknown) Jerome % (Auto) 5.4 (units (unknown) date) (3-14) % unknown) (unknown) (no (unknown) (unknown) 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) (unknown) (no (unknown) (unknown) Multiple falls (units (unknown) date) unknown) (unknown) (no (unknown) (unknown) Narrative: (units (unk nown) date) unknown) (unknown) (no (unknown) (unknown) Neck: No JVD, (units ( unknown) date) supple unknown) (unknown) (no (unknown) (unknown) Neurologic: T12 (units (unknown) date) paraplegia, muscle unknown) atrophy in legs bilaterally (unknown) (no (unknown) (unknown) Neut # (Auto) (units ( unknown) date) (4822-8819) /uL unknown) (unknown) (no (unknown) (unknown) Neut # (Auto) 4100 (units (unknown) date) (3468-4425) /uL unknown) (unknown) (no (unknown) (unknown) Neut % (Auto) (units ( unknown) date) (50-75) % unknown) (unknown) (no (unknown) (unknown) Neut % (Auto) 62.6 (units (unknown) date) (50-75) % unknown) (unknown) (no (unknown) (unknown) No Action (units (unkn own) date) unknown) (unknown) (no (unknown) (unknown) No acute ischemic (units (unknown) date) changes unknown) (unknown) (no (unknown) (unknown) No chest pain, (units (unknown) date) palpitations cough unknown) or dyspnea. (unknown) (no (unknown) (unknown) No gallbladder (units (unknown) date) wall thickening. unknown) (unknown) (no (unknown) (unknown) Normal intervals (units (unknown) date) and axis unknown) (unknown) (no (unknown) (unknown) Ordered: (units (unkno wn) date) unknown) (unknown) (no (unknown) (unknown) Orders (units (unkno wn) date) unknown) (unknown) (no (unknown) (unknown) Oxygen Delivery (units (unknown) date) Method Room Air unknown) (unknown) (no (unknown) (unknown) PELVIS: (units (unkno wn) date) unknown) (unknown) (no (unknown) (unknown) PICC (peripherally (units (unknown) date) inserted central unknown) catheter) in place (unknown) (no (unknown) (unknown) Pancreas:? (units (unk nown) date) Diminutive.? No unknown) acute inflammation. (unknown) (no (unknown) (unknown) Paraplegia (units (unk nown) date) (02/14/16) unknown) (unknown) (no (unknown) (unknown) Paraplegic spinal (units (unknown) date) paralysis unknown) (unknown) (no (unknown) (unknown) Patient History (units (unknown) date) unknown) (unknown) (no (unknown) (unknown) Patient: (units (unkno wn) date) Karina Diallo MR#: unknown) [id number] (unknown) (no (unknown) (unknown) Pelvic Nodes: No (units (unknown) date) enlarged lymph unknown) nodes.? (unknown) (no (unknown) (unknown) Pelvic Organs:? (units (unknown) date) Anteverted uterus.? unknown) Stephens catheter decompressing the urinary (unknown) (no (unknown) (unknown) Penicillins (units (un known) date) Allergy Unknown unknown) Verified 11/28/21 07:23 (unknown) (no (unknown) (unknown) Peritoneum:? No (units (unknown) date) abnormal unknown) intraperitoneal fluid.? No free air.? (unknown) (no (unknown) (unknown) Post-op bleeding (units (unknown) date) unknown) (unknown) (no (unknown) (unknown) Potassium (units (unkn own) date) (3.4-5.1) mmol/L unknown) (unknown) (no (unknown) (unknown) Potassium 3.6 (units ( unknown) date) (3.4-5.1) mmol/L unknown) (unknown) (no (unknown) (unknown) Prescriptions: (units (unknown) date) unknown) (unknown) (no (unknown) (unknown) Pressure ulcer of (units (unknown) date) contiguous site of unknown) back, buttock and hip, stage 2 (unknown) (no (unknown) (unknown) Pressure ulcer of (units (unknown) date) left thigh unknown) (unknown) (no (unknown) (unknown) Procalcitonin (units ( unknown) date) (<0.5) ng/mL unknown) (unknown) (no (unknown) (unknown) Procalcitonin 0.08 (units (unknown) date) (<0.5) ng/mL unknown) (unknown) (no (unknown) (unknown) Procalcitonin Stat (units (unknown) date) unknown) (unknown) (no (unknown) (unknown) Psych: (units (unkno wn) date) Cooperative, unknown) appropriate insight and affect (unknown) (no (unknown) (unknown) Pulse Oximetry 99 (units (unknown) date) unknown) (unknown) (no (unknown) (unknown) Pulse Rate 77 (units ( unknown) date) unknown) (unknown) (no (unknown) (unknown) RDW (11.6-14.8) % (units (unknown) date) unknown) (unknown) (no (unknown) (unknown) RDW 14.2 (units (unkno wn) date) (11.6-14.8) % unknown) (unknown) (no (unknown) (unknown) Referrals: (units (unk nown) date) unknown) (unknown) (no (unknown) (unknown) Related Data (units (u nknown) date) unknown) (unknown) (no (unknown) (unknown) Remainder of (units (u nknown) date) complete review of unknown) systems is otherwise unremarkable except for (unknown) (no (unknown) (unknown) Respiratory Rate (units (unknown) date) 18 unknown) (unknown) (no (unknown) (unknown) Respiratory: Lungs (units (unknown) date) are clear to unknown) auscultation, no wheezing no rales no rhonchi. (unknown) (no (unknown) (unknown) Result diagrams: (units (unknown) date) unknown) (unknown) (no (unknown) (unknown) Retention of (units (u nknown) date) urine, unspecified unknown) (unknown) (no (unknown) (unknown) Review of Systems (units (unknown) date) unknown) (unknown) (no (unknown) (unknown) SARS-CoV-2 (PCR) (units (unknown) date) (Negative) unknown) (unknown) (no (unknown) (unknown) SARS-CoV-2 (PCR) (units (unknown) date) Negative (Negative) unknown) (unknown) (no (unknown) (unknown) Seasonal allergies (units (unknown) date) unknown) (unknown) (no (unknown) (unknown) Signed By: (units (unk nown) date) unknown) (unknown) (no (unknown) (unknown) Sinus rhythm at a (units (unknown) date) rate of 66 unknown) (unknown) (no (unknown) (unknown) Sister Mental (units ( unknown) date) health problem unknown) (unknown) (no (unknown) (unknown) Skin ulcer of (units ( unknown) date) ankle unknown) (unknown) (no (unknown) (unknown) Skin: Thin, warm (units (unknown) date) and dry. Sacral unknown) area is closely examined. She has a (unknown) (no (unknown) (unknown) Smoking Status: (units (unknown) date) Former smoker unknown) (unknown) (no (unknown) (unknown) Smoking Status: (units (unknown) date) Former smoker unknown) (unknown) (no (unknown) (unknown) Social History (units (unknown) date) (Reviewed 12/25/21 unknown) @ 23:26 by Mone Baum MD) (unknown) (no (unknown) (unknown) Sodium (137-145) (units (unknown) date) mmol/L unknown) (unknown) (no (unknown) (unknown) Sodium 140 (units (unk nown) date) (137-145) mmol/L unknown) (unknown) (no (unknown) (unknown) Source: patient (units (unknown) date) and family unknown) (unknown) (no (unknown) (unknown) Spleen:? Mildly (units (unknown) date) enlarged, stable. unknown) (unknown) (no (unknown) (unknown) Stated complaint: (units (unknown) date) Wound on feet and unknown) bum smell (unknown) (no (unknown) (unknown) Stomach and (units (un known) date) Bowel:? Large unknown) amount of rectal stool.? The colon is redundant and (unknown) (no (unknown) (unknown) Substance Use (units ( unknown) date) Type: marijuana unknown) (unknown) (no (unknown) (unknown) Temperature 97.4 F (units (unknown) date) L 12/25/21 21:43 unknown) (unknown) (no (unknown) (unknown) Temperature 97.4 F (units (unknown) date) L 98.3 F unknown) (unknown) (no (unknown) (unknown) There is (units (unkno wn) date) unknown) (unknown) (no (unknown) (unknown) Time Seen by (units (u nknown) date) Provider: 12/25/21 unknown) 21:46 (unknown) (no (unknown) (unknown) Toe laceration (units (unknown) date) unknown) (unknown) (no (unknown) (unknown) Total Bilirubin (units (unknown) date) (0.2-1.3) mg/dL unknown) (unknown) (no (unknown) (unknown) Total Bilirubin (units (unknown) date) 0.4 (0.2-1.3) mg/dL unknown) (unknown) (no (unknown) (unknown) Total Protein (units ( unknown) date) (6.3-8.2) g/dL unknown) (unknown) (no (unknown) (unknown) Total Protein 8.6 (units (unknown) date) H (6.3-8.2) g/dL unknown) (unknown) (no (unknown) (unknown) Troponin I (units (unk nown) date) (0.01-0.034) ng/mL unknown) (unknown) (no (unknown) (unknown) Troponin I < 0.012 (units (unknown) date) (0.01-0.034) ng/mL unknown) (unknown) (no (unknown) (unknown) Troponin I Stat (units (unknown) date) unknown) (unknown) (no (unknown) (unknown) UTI (urinary tract (units (unknown) date) infection) unknown) (unknown) (no (unknown) (unknown) UTI (urinary tract (units (unknown) date) infection) due to unknown) Enterococcus (unknown) (no (unknown) (unknown) Ur Culture (units (unk nown) date) Indicated? unknown) (unknown) (no (unknown) (unknown) Ur Culture (units (unk nown) date) Indicated? Specimen unknown) cultured (unknown) (no (unknown) (unknown) Ur Leukocyte (units (u nknown) date) Esterase (NEGATIVE) unknown) (unknown) (no (unknown) (unknown) Ur Leukocyte (units (u nknown) date) Esterase 3+ H unknown) (NEGATIVE) (unknown) (no (unknown) (unknown) Ur Specific (units (un known) date) Duarte unknown) (1.000-1.035) (unknown) (no (unknown) (unknown) Ur Specific (units (un known) date) Duarte 1.010 unknown) (1.000-1.035) (unknown) (no (unknown) (unknown) Ur Squamous Epith (units (unknown) date) Cells (0-5/HPF) unknown) (unknown) (no (unknown) (unknown) Ur Squamous Epith (units (unknown) date) Cells 0-1 /hpf unknown) (0-5/HPF) (unknown) (no (unknown) (unknown) Urinalysis and (units (unknown) date) Microscopic Stat unknown) (unknown) (no (unknown) (unknown) Urine Appearance (units (unknown) date) unknown) (unknown) (no (unknown) (unknown) Urine Appearance (units (unknown) date) Cloudy unknown) (unknown) (no (unknown) (unknown) Urine Bacteria (units (unknown) date) (None) unknown) (unknown) (no (unknown) (unknown) Urine Bacteria (units (unknown) date) Many (>30) H (None) unknown) (unknown) (no (unknown) (unknown) Urine Bilirubin (units (unknown) date) (NEGATIVE) unknown) (unknown) (no (unknown) (unknown) Urine Bilirubin (units (unknown) date) Negative (NEGATIVE) unknown) (unknown) (no (unknown) (unknown) Urine Color (units (un known) date) unknown) (unknown) (no (unknown) (unknown) Urine Color Yellow (units (unknown) date) unknown) (unknown) (no (unknown) (unknown) Urine Culture Stat (units (unknown) date) unknown) (unknown) (no (unknown) (unknown) Urine Glucose (UA) (units (unknown) date) (Negative) g/dL unknown) (unknown) (no (unknown) (unknown) Urine Glucose (UA) (units (unknown) date) Negative (Negative) unknown) g/dL (unknown) (no (unknown) (unknown) Urine Ketones (units ( unknown) date) (NEGATIVE) unknown) (unknown) (no (unknown) (unknown) Urine Ketones (units ( unknown) date) Negative unknown) (NEGATIVE) (unknown) (no (unknown) (unknown) Urine Nitrate (units ( unknown) date) (Negative) unknown) (unknown) (no (unknown) (unknown) Urine Nitrate (units ( unknown) date) Positive H unknown) (Negative) (unknown) (no (unknown) (unknown) Urine Occult Blood (units (unknown) date) (Negative) unknown) (unknown) (no (unknown) (unknown) Urine Occult Blood (units (unknown) date) 3+ H (Negative) unknown) (unknown) (no (unknown) (unknown) Urine Protein (units ( unknown) date) (Negative) unknown) (unknown) (no (unknown) (unknown) Urine Protein 2+ H (units (unknown) date) (Negative) unknown) (unknown) (no (unknown) (unknown) Urine RBC (units (unkn own) date) (0-5/HPF) unknown) (unknown) (no (unknown) (unknown) Urine RBC 5-10/hpf (units (unknown) date) H (0-5/HPF) unknown) (unknown) (no (unknown) (unknown) Urine Urobilinogen (units (unknown) date) (0.2) E.U./dL unknown) (unknown) (no (unknown) (unknown) Urine Urobilinogen (units (unknown) date) 0.2 (0.2) E.U./dL unknown) (unknown) (no (unknown) (unknown) Urine WBC (units (unkn own) date) (0-5/HPF) unknown) (unknown) (no (unknown) (unknown) Urine WBC >100/hpf (units (unknown) date) H (0-5/HPF) unknown) (unknown) (no (unknown) (unknown) Urine pH (4.5-8.0) (units (unknown) date) unknown) (unknown) (no (unknown) (unknown) Urine pH 7.0 (units (u nknown) date) (4.5-8.0) unknown) (unknown) (no (unknown) (unknown) Ventral Wall: ? No (units (unknown) date) hernias.? unknown) (unknown) (no (unknown) (unknown) Vessels:? Aorta (units (unknown) date) and inferior vena unknown) cava are normal in size.? Moderate abdominal (unknown) (no (unknown) (unknown) Vital Signs (units (un known) date) unknown) (unknown) (no (unknown) (unknown) Vital signs: (units (u nknown) date) unknown) (unknown) (no (unknown) (unknown) Wound of sacral (units (unknown) date) region, subsequent unknown) encounter (08/29/15) (unknown) (no (unknown) (unknown) [Embedded Image (units (unknown) date) Not Available] unknown) (unknown) (no (unknown) (unknown) accounting (units (unk nown) date) unknown) (unknown) (no (unknown) (unknown) alcohol intake (units (unknown) date) frequency: unknown) holidays/special occasions only (unknown) (no (unknown) (unknown) alcohol intake: (units (unknown) date) never unknown) (unknown) (no (unknown) (unknown) also does not seem (units (unknown) date) to cause pain, good unknown) bowel tones, no flank pain (unknown) (no (unknown) (unknown) and acetabulum.? (units (unknown) date) unknown) (unknown) (no (unknown) (unknown) and buttock. There (units (unknown) date) is a 2 x 2 cm area unknown) of slightly increased skin breakdown with (unknown) (no (unknown) (unknown) and heels that are (units (unknown) date) relatively clean unknown) and do not appear to be acutely infected (unknown) (no (unknown) (unknown) aortic (units (unkno wn) date) unknown) (unknown) (no (unknown) (unknown) atherosclerotic (units (unknown) date) calcification.? unknown) (unknown) (no (unknown) (unknown) bladder. (units (unkno wn) date) unknown) (unknown) (no (unknown) (unknown) buttocks, feet and (units (unknown) date) heels. She does a unknown) well-padded wheelchair and is doing a good (unknown) (no (unknown) (unknown) cefpodoxime 200 mg (units (unknown) date) tablet 200 mg PO unknown) Q12H #14 tabs 11/28/21 (unknown) (no (unknown) (unknown) chills and fevers, (units (unknown) date) she is concerned unknown) that her wounds are infected. With her T12 (unknown) (no (unknown) (unknown) chlorhexidine (units ( unknown) date) Allergy Mild unknown) ITCHING Verified 11/28/21 07:23 (unknown) (no (unknown) (unknown) ciprofloxacin HCl (units (unknown) date) 500 mg tablet 500 unknown) mg PO BID #20 tabs 12/07/21 (unknown) (no (unknown) (unknown) complete and (units (u nknown) date) coherent history. unknown) (unknown) (no (unknown) (unknown) contains (units (unkno wn) date) unknown) (unknown) (no (unknown) (unknown) dressed and (units (unk nown) date) protected. Toes are unknown) dressed with barrier cream protected and do not (unknown) (no (unknown) (unknown) ertapenem Allergy (units (unknown) date) Severe SEIZURES unknown) Verified 11/28/21 07:23 (unknown) (no (unknown) (unknown) extremities. She (units (unknown) date) has some minor unknown) breakdown on her right heel that is covered (unknown) (no (unknown) (unknown) femoral head (units (u nknown) date) unknown) (unknown) (no (unknown) (unknown) femoroacetabular (units (unknown) date) joint effusions.? unknown) Cortical regularity involving the left (unknown) (no (unknown) (unknown) fluoroquinolones (units (unknown) date) and she was treated unknown) with ciprofloxacin. (unknown) (no (unknown) (unknown) for any palpable (units (unknown) date) mass.? Stomach and unknown) small bowel loops are within normal limits. (unknown) (no (unknown) (unknown) fundus.? (units (unkno wn) date) unknown) (unknown) (no (unknown) (unknown) household members: (units (unknown) date) none unknown) (unknown) (no (unknown) (unknown) hydrocodone 5 (units ( unknown) date) mg-acetaminophen unknown) 325 1 tab PO Q6H PRN pain #10 tabs 11/28/21 (unknown) (no (unknown) (unknown) increasing areas (units (unknown) date) of erythema or unknown) worsening skin breakdown. (unknown) (no (unknown) (unknown) irregularity of (units (unknown) date) unknown) (unknown) (no (unknown) (unknown) ischial (units (unkno wn) date) unknown) (unknown) (no (unknown) (unknown) job of keeping the (units (unknown) date) wounds covered but unknown) has not yet been able to establish care (unknown) (no (unknown) (unknown) lactose AdvReac (units (unknown) date) Unknown Verified unknown) 11/28/21 07:23 (unknown) (no (unknown) (unknown) left hydroureter.? (units (unknown) date) No urinary unknown) calcifications. (unknown) (no (unknown) (unknown) left worse (units (unk nown) date) unknown) (unknown) (no (unknown) (unknown) levothyroxine 50 (units (unknown) date) mcg tablet 50 mcg unknown) PO DAILY #30 tabs 10/12/19 (unknown) (no (unknown) (unknown) linezolid (units (unkn own) date) [LINEZOLID] Allergy unknown) Mild Verified 11/28/21 07:23 (unknown) (no (unknown) (unknown) mass. (units (unkno wn) date) unknown) (unknown) (no (unknown) (unknown) metronidazole 500 (units (unknown) date) mg tablet 500 mg unknown) .Route .COMPLEX 03/17/20 (unknown) (no (unknown) (unknown) mg tablet (units (unkn own) date) unknown) (unknown) (no (unknown) (unknown) mild right (units (unk n) date) unknown) (unknown) (no (unknown) (unknown) moderate stool.? (units (unknown) date) This is unknown) particularly seen in the right lower quadrant, likely (unknown) (no (unknown) (unknown) not complain of (units (unknown) date) abdominal pain but unknown) feels that she has been more bloated recently (unknown) (no (unknown) (unknown) oxybutynin (units (unk n) date) chloride 5 mg unknown) tablet 10 mg PO TID 03/17/20 (unknown) (no (unknown) (unknown) paraplegia she has (units (unknown) date) incomplete sensory unknown) loss, some sensation of her abdomen does (unknown) (no (unknown) (unknown) posterior (units (unkn own) date) subluxation of both unknown) femoroacetabular joints and prominent left and (unknown) (no (unknown) (unknown) red and there is (units (unknown) date) definitely no unknown) draining or tunneling abscesses, there is no (unknown) (no (unknown) (unknown) sennosides 8.6 mg (units (unknown) date) tablet (senna) 17.2 unknown) mg PO BEDTIME #60 tabs 03/17/20 (unknown) (no (unknown) (unknown) she has an (units (unk nown) date) indwelling Stephens unknown) catheter and is wondering if she might have a (unknown) (no (unknown) (unknown) significant amount (units (unknown) date) of a well-healed unknown) scar tissue over the majority of her sacrum (unknown) (no (unknown) (unknown) significant odor (units (unknown) date) unknown) (unknown) (no (unknown) (unknown) than right, and (units (unknown) date) 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 Cortical (unknown) (no (unknown) (unknown) that included in (units (unknown) date) the HPI. unknown) (unknown) (no (unknown) (unknown) the left femoral (units (unknown) date) head has unknown) progressed. (unknown) (no (unknown) (unknown) today. Indwelling (units (unknown) date) catheter that does unknown) suggest significant abnormalities. (unknown) (no (unknown) (unknown) tuberosity. There (units (unknown) date) is diffuse truncal unknown) and lower extremity muscular atrophy. (unknown) (no (unknown) (unknown) urinary tract (units ( unknown) date) infection. She does unknown) not describe headaches, nausea or vomiting. (unknown) (no (unknown) (unknown) with wound care. (units (unknown) date) She states that unknown) over the last ?bit of time? seemingly days to Result panel 71 (unknown) (no (unknown) (unknown) (no value) (units (unk nown) date) unknown) (unknown) (no (unknown) (unknown) Radiologist's (units ( unknown) date) Impression: unknown) (unknown) (no (unknown) (unknown) Date of Service: (units (unknown) date) 12/25/21 unknown) (unknown) (no (unknown) (unknown) (no value) (units (unk nown) date) unknown) (unknown) (no (unknown) (unknown) <Electronically (units (unknown) date) signed by Mone Nair unknown) MD Sarika> (unknown) (no (unknown) (unknown) 12/25/21 22:15 (units (unknown) date) unknown) (unknown) (no (unknown) (unknown) 12/26/21 0152 (units ( unknown) date) unknown) (unknown) (no (unknown) (unknown) 1 tab PO Q6H PRN (units (unknown) date) (Reason: pain) Qty: unknown) 10 0RF (unknown) (no (unknown) (unknown) 10 mg PO TID (units (u nknown) date) unknown) (unknown) (no (unknown) (unknown) 17.2 mg PO BEDTIME (units (unknown) date) Qty: 60 5RF unknown) (unknown) (no (unknown) (unknown) 200 mg PO Q12H (units (unknown) date) Qty: 14 0RF unknown) (unknown) (no (unknown) (unknown) 50 mcg PO DAILY (units (unknown) date) Qty: 30 5RF unknown) (unknown) (no (unknown) (unknown) 500 mg .ROUTE (units ( unknown) date) .COMPLEX unknown) (unknown) (no (unknown) (unknown) 500 mg PO BID Qty: (units (unknown) date) 20 0RF unknown) (unknown) (no (unknown) (unknown) 500 mg crush and (units (unknown) date) apply topically to unknown) wound twice weekly; (unknown) (no (unknown) (unknown) 750 mg PO DAILY (units (unknown) date) Qty: 10 0RF unknown) (unknown) (no (unknown) (unknown) Allergies (units (unkn own) date) unknown) (unknown) (no (unknown) (unknown) Diabetes mellitus (units (unknown) date) unknown) (unknown) (no (unknown) (unknown) ED Orders (units (unkn own) date) unknown) (unknown) (no (unknown) (unknown) Emergency Report (units (unknown) date) unknown) (unknown) (no (unknown) (unknown) Home Medications (units (unknown) date) unknown) (unknown) (no (unknown) (unknown) [facility] (units (unknown) date) [address] [place] [address] unknown) [place] [address] (unknown) (no (unknown) (unknown) Lab Results (units (un known) date) unknown) (unknown) (no (unknown) (unknown) Previous Rx's (units ( unknown) date) unknown) (unknown) (no (unknown) (unknown) Rx Instructions: (units (unknown) date) unknown) (unknown) (no (unknown) (unknown) Vital Signs - 8 hr (units (unknown) date) unknown) (unknown) (no (unknown) (unknown) must administer (units (unknown) date) with a meal/food unknown) (unknown) (no (unknown) (unknown) (no value) (units (unk nown) date) unknown) (unknown) (no (unknown) (unknown) 12/25/21 12/25/21 (units (unknown) date) 12/25/21 unknown) Range/Units (unknown) (no (unknown) (unknown) 12/25/21 12/25/21 (units (unknown) date) Range/Units unknown) (unknown) (no (unknown) (unknown) 22:15 22:15 (units (un known) date) unknown) (unknown) (no (unknown) (unknown) 22:15 22:15 22:15 (units (unknown) date) unknown) (unknown) (no (unknown) (unknown) She does not (units (u nknown) date) worsening decubitus unknown) ulcers, abdominal infection, cancers or (unknown) (no (unknown) (unknown) cefpodoxime 200 mg (units (unknown) date) tablet unknown) (unknown) (no (unknown) (unknown) ciprofloxacin HCl (units (unknown) date) [Cipro] 500 mg unknown) tablet (unknown) (no (unknown) (unknown) hydrocodone-acetam (units (unknown) date) inophen 5-325 mg unknown) tablet (unknown) (no (unknown) (unknown) levofloxacin 750 (units (unknown) date) mg tablet unknown) (unknown) (no (unknown) (unknown) levothyroxine (units ( unknown) date) [Synthroid] 50 mcg unknown) tablet (unknown) (no (unknown) (unknown) metronidazole 500 (units (unknown) date) mg tablet unknown) (unknown) (no (unknown) (unknown) oxybutynin (units (unk nown) date) chloride 5 mg unknown) tablet (unknown) (no (unknown) (unknown) sennosides [senna] (units (unknown) date) 8.6 mg tablet unknown) (unknown) (no (unknown) (unknown) 12/25/21 (units (unkno wn) date) unknown) (unknown) (no (unknown) (unknown) Full and (units (unkno wn) date) symmetrical air unknown) movement (unknown) (no (unknown) (unknown) Medication (units (unk nown) date) Instructions unknown) Recorded (unknown) (no (unknown) (unknown) Medication (units (unk nown) date) Instructions unknown) Recorded Confirmed (unknown) (no (unknown) (unknown) Pressure injury (units (unknown) date) location: unknown) contiguous region involving back, buttock, and hip (unknown) (no (unknown) (unknown) She notes that she (units (unknown) date) has recently begun unknown) taking Imodium to prevent bowel movement (unknown) (no (unknown) (unknown) Urinary tract (units ( unknown) date) infection, unknown) Obstipation (unknown) (no (unknown) (unknown) a Stephens catheter (units (unknown) date) in place. None of unknown) the areas look like they are particularly (unknown) (no (unknown) (unknown) antibiotic but I (units (unknown) date) am going to change unknown) it to one just slightly stronger and only (unknown) (no (unknown) (unknown) early complaints. (units (unknown) date) Urine at that time unknown) grew out Pseudomonas sensitive to (unknown) (no (unknown) (unknown) has an appointment (units (unknown) date) with wound care unknown) coming up on the . (unknown) (no (unknown) (unknown) regular with bowel (units (unknown) date) movements and has unknown) done so without significant manipulation (unknown) (no (unknown) (unknown) show significant (units (unknown) date) skin breakdown. unknown) There is no cellulitis, drainage or (unknown) (no (unknown) (unknown) underlying fat (units (unknown) date) tissue appreciated unknown) without discharge or erythema. She does have (unknown) (no (unknown) (unknown) (Cipro) (units (unkno wn) date) unknown) (unknown) (no (unknown) (unknown) (Synthroid) (units (un known) date) unknown) (unknown) (no (unknown) (unknown) 12/25/21 22:15 (units (unknown) date) unknown) (unknown) (no (unknown) (unknown) 12/25/21 22:19 (units (unknown) date) unknown) (unknown) (no (unknown) (unknown) 12/25/21 22:21 (units (unknown) date) unknown) (unknown) (no (unknown) (unknown) 12/25/21 22:53 (units (unknown) date) unknown) (unknown) (no (unknown) (unknown) 0807 (units (unkno wn) date) unknown) (unknown) (no (unknown) (unknown) 1-2 weeks, she has (units (unknown) date) been feeling unknown) increasingly worse with which she feels are (unknown) (no (unknown) (unknown) 1. Proximal (units (un known) date) colonic obstipation unknown) may account for right lower quadrant palpable (unknown) (no (unknown) (unknown) 2. Marked rectal (units (unknown) date) obstipation, worse unknown) compared to the prior study. (unknown) (no (unknown) (unknown) 21:43 12/25/21 (units (unknown) date) unknown) (unknown) (no (unknown) (unknown) 22:00 (units (unkno wn) date) unknown) (unknown) (no (unknown) (unknown) 3. Chronic sacral (units (unknown) date) decubitus ulcer, unknown) posterior subluxation of both hip joints, (unknown) (no (unknown) (unknown) 4. Mild (units (unkno wn) date) hepatomegaly and unknown) hepatic steatosis. (unknown) (no (unknown) (unknown) 5. (units (unkno wn) date) Cholelithiasis.? unknown) (unknown) (no (unknown) (unknown) 66-year-old T12 (units (unknown) date) paraplegic, chronic unknown) indwelling Stephens catheter, pressure over her (unknown) (no (unknown) (unknown) 66-year-old woman (units (unknown) date) with T12 unknown) paraplegia, chronic pressure wounds of her buttocks (unknown) (no (unknown) (unknown) ? 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 (unknown) (no (unknown) (unknown) ABDOMEN: (units (unkno wn) date) unknown) (unknown) (no (unknown) (unknown) AF (paroxysmal (units (unknown) date) atrial unknown) fibrillation) (unknown) (no (unknown) (unknown) ALT (<35) IU/L (units (unknown) date) unknown) (unknown) (no (unknown) (unknown) ALT 47 H (<35) (units (unknown) date) IU/L unknown) (unknown) (no (unknown) (unknown) AST (14-36) IU/L (units (unknown) date) unknown) (unknown) (no (unknown) (unknown) AST 53 H (14-36) (units (unknown) date) IU/L unknown) (unknown) (no (unknown) (unknown) Abdomen: Soft, (units (unknown) date) large mass in the unknown) right lower quadrant that is not mobile but (unknown) (no (unknown) (unknown) Abdominal Nodes:? (units (unknown) date) No retroperitoneal unknown) or mesenteric adenopathy by size criteria.? (unknown) (no (unknown) (unknown) Abrasion, left (units (unknown) date) lower leg, initial unknown) encounter (unknown) (no (unknown) (unknown) Abscess and (units (un known) date) cellulitis of unknown) gluteal region (unknown) (no (unknown) (unknown) Activity (units (unkno wn) date) Restrictions/Additi unknown) onal Instructions: (unknown) (no (unknown) (unknown) Acute UTI (units (unkn own) date) unknown) (unknown) (no (unknown) (unknown) Acute hypokalemia (units (unknown) date) unknown) (unknown) (no (unknown) (unknown) Acute narcotic (units (unknown) date) withdrawal without unknown) complication (unknown) (no (unknown) (unknown) Adrenal Glands:? (units (unknown) date) No adrenal masses. unknown) (unknown) (no (unknown) (unknown) Age/Sex: 66 / F (units (unknown) date) unknown) (unknown) (no (unknown) (unknown) Albumin (3.5-5.0) (units (unknown) date) g/dL unknown) (unknown) (no (unknown) (unknown) Albumin 4.4 (units (un known) date) (3.5-5.0) g/dL unknown) (unknown) (no (unknown) (unknown) Albumin/Globulin (units (unknown) date) Ratio (1.0-2.8) unknown) (unknown) (no (unknown) (unknown) Albumin/Globulin (units (unknown) date) Ratio 1.0 (1.0-2.8) unknown) (unknown) (no (unknown) (unknown) Alkaline (units (unkno wn) date) Phosphatase unknown) (38-126) U/L (unknown) (no (unknown) (unknown) Alkaline (units (unkno wn) date) Phosphatase 104 unknown) (38-126) U/L (unknown) (no (unknown) (unknown) Allergy/AdvReac (units (unknown) date) Type Severity unknown) Reaction Status Date / Time (unknown) (no (unknown) (unknown) Also discussed her (units (unknown) date) pain and the unknown) significant obstipation appreciated on CT scan. (unknown) (no (unknown) (unknown) Anemia (units (unkno wn) date) unknown) (unknown) (no (unknown) (unknown) BUN (7-17) mg/dL (units (unknown) date) unknown) (unknown) (no (unknown) (unknown) BUN 14 (7-17) (units ( unknown) date) mg/dL unknown) (unknown) (no (unknown) (unknown) BUN/Creatinine (units (unknown) date) Ratio (6-22) unknown) (unknown) (no (unknown) (unknown) BUN/Creatinine (units (unknown) date) Ratio 29.2 H (6-22) unknown) (unknown) (no (unknown) (unknown) Baso # (Auto) (units ( unknown) date) (0-100) /uL unknown) (unknown) (no (unknown) (unknown) Baso # (Auto) 0 (units (unknown) date) (0-100) /uL unknown) (unknown) (no (unknown) (unknown) Baso % (Auto) (units ( unknown) date) (0-2) % unknown) (unknown) (no (unknown) (unknown) Baso % (Auto) 0.3 (units (unknown) date) (0-2) % unknown) (unknown) (no (unknown) (unknown) Bilateral lower (units (unknown) date) leg cellulitis unknown) (unknown) (no (unknown) (unknown) Biliary ducts:? No (units (unknown) date) visible biliary unknown) dilatation. (unknown) (no (unknown) (unknown) Bladder:? (units (unkn own) date) Diffusely unknown) decompressed. (unknown) (no (unknown) (unknown) Bleeding from PICC (units (unknown) date) line unknown) (unknown) (no (unknown) (unknown) Blood Culture Stat (units (unknown) date) unknown) (unknown) (no (unknown) (unknown) Blood Pressure (units (unknown) date) 146/80 H unknown) (unknown) (no (unknown) (unknown) Bones:? Spinal (units (unknown) date) fusion hardware unknown) throughout the lower thoracic and lumbar spine.? (unknown) (no (unknown) (unknown) Brother Mental (units (unknown) date) health problem unknown) (unknown) (no (unknown) (unknown) COVID19 -Nasal (units (unknown) date) RAPID/Pre-Proc Stat unknown) (unknown) (no (unknown) (unknown) CT abdomen pelvis (units (unknown) date) w con Stat unknown) (unknown) (no (unknown) (unknown) CT scan - (units (unkn own) date) abdomen/pelvis: unknown) (unknown) (no (unknown) (unknown) Calcium (8.4-10.2) (units (unknown) date) mg/dL unknown) (unknown) (no (unknown) (unknown) Calcium 9.3 (units (un known) date) (8.4-10.2) mg/dL unknown) (unknown) (no (unknown) (unknown) Calcium Oxalate (units (unknown) date) Crystal unknown) (unknown) (no (unknown) (unknown) Calcium Oxalate (units (unknown) date) Crystal Few H unknown) (unknown) (no (unknown) (unknown) Carbon Dioxide (units (unknown) date) (22-32) mmol/L unknown) (unknown) (no (unknown) (unknown) Carbon Dioxide 31 (units (unknown) date) (22-32) mmol/L unknown) (unknown) (no (unknown) (unknown) Cardiac: Regular (units (unknown) date) rate and rhythm no unknown) murmurs no bruits (unknown) (no (unknown) (unknown) Cat scratch of (units (unknown) date) face unknown) (unknown) (no (unknown) (unknown) Cellulitis (units (unk nown) date) unknown) (unknown) (no (unknown) (unknown) Chief complaint: (units (unknown) date) Skin/Abscess/Foreig unknown) n Body (unknown) (no (unknown) (unknown) Chloride (98-107) (units (unknown) date) mmol/L unknown) (unknown) (no (unknown) (unknown) Chloride 100 (units (u nknown) date) (98-107) mmol/L unknown) (unknown) (no (unknown) (unknown) 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 Was seen on December 07 for some (unknown) (no (unknown) (unknown) Complete Blood (units (unknown) date) Count AUTO DIFF unknown) Stat (unknown) (no (unknown) (unknown) Comprehensive (units ( unknown) date) Metabolic Panel unknown) Stat (unknown) (no (unknown) (unknown) Contusion of left (units (unknown) date) lower leg, initial unknown) encounter (unknown) (no (unknown) (unknown) Course (units (unkno wn) date) unknown) (unknown) (no (unknown) (unknown) Creatinine (units (unk nown) date) (0.52-1.04) mg/dL unknown) (unknown) (no (unknown) (unknown) Creatinine 0.48 L (units (unknown) date) (0.52-1.04) mg/dL unknown) (unknown) (no (unknown) (unknown) Cutaneous abscess (units (unknown) date) of buttock unknown) (unknown) (no (unknown) (unknown) : 1955 (units (unknown) date) Acct:[id number] unknown) (unknown) (no (unknown) (unknown) Decubitus ulcer (units (unknown) date) unknown) (unknown) (no (unknown) (unknown) Deep vein (units (unkn own) date) thrombosis unknown) (unknown) (no (unknown) (unknown) Departure (units (unkn own) date) unknown) (unknown) (no (unknown) (unknown) Dictated by: (units (u nknown) date) Liset Iraheta M.D. unknown) on 12/25/2021 at 23:30 ? ? (unknown) (no (unknown) (unknown) Discharge Plan (units (unknown) date) unknown) (unknown) (no (unknown) (unknown) Dizziness (units (unkn own) date) unknown) (unknown) (no (unknown) (unknown) ECG Data (units (unkno wn) date) unknown) (unknown) (no (unknown) (unknown) EKG-12 Lead Stat (units (unknown) date) unknown) (unknown) (no (unknown) (unknown) ER Physician: (units ( unknown) date) Mone Baum MD unknown) (unknown) (no (unknown) (unknown) Eos # (Auto) (units (u nknown) date) (0-450) /uL unknown) (unknown) (no (unknown) (unknown) Eos # (Auto) 100 (units (unknown) date) (0-450) /uL unknown) (unknown) (no (unknown) (unknown) Eos % (Auto) (2-4) (units (unknown) date) % unknown) (unknown) (no (unknown) (unknown) Eos % (Auto) 1.3 L (units (unknown) date) (2-4) % unknown) (unknown) (no (unknown) (unknown) Estimated GFR (units ( unknown) date) (>60) mL/min unknown) (unknown) (no (unknown) (unknown) Estimated GFR > 60 (units (unknown) date) (>60) mL/min unknown) (unknown) (no (unknown) (unknown) Exam (units (unkno wn) date) unknown) (unknown) (no (unknown) (unknown) Extremities: No (units (unknown) date) trauma, protective unknown) coverings are in place for her lower (unknown) (no (unknown) (unknown) FINDINGS:? (units (unk nown) date) unknown) (unknown) (no (unknown) (unknown) Fall (units (unkno wn) date) unknown) (unknown) (no (unknown) (unknown) Family History (units (unknown) date) (Reviewed 12/25/21 unknown) @ 23:26 by Mone Baum MD) (unknown) (no (unknown) (unknown) Findings reviewed (units (unknown) date) with patient and unknown) she is safe for home discharge (unknown) (no (unknown) (unknown) Stephens catheter in (units (unknown) date) light of her unknown) chronic decubitus wounds. I recommended keeping (unknown) (no (unknown) (unknown) Gallbladder:? (units ( unknown) date) Small dependently unknown) layering calcified stones near the gallbladder (unknown) (no (unknown) (unknown) General (units (unkno wn) date) unknown) (unknown) (no (unknown) (unknown) General: (units (unkno wn) date) Chronically unknown) ill-appearing but in no acute distress. Able to give a (unknown) (no (unknown) (unknown) GenericComposite[P (units (unknown) date) lt Count (150-400) unknown) X10^3/uL ] (unknown) (no (unknown) (unknown) GenericComposite[P (units (unknown) date) lt Count 237 unknown) (150-400) X10^3/uL ] (unknown) (no (unknown) (unknown) GenericComposite[R (units (unknown) date) BC (4.0-5.2) unknown) X10^6/uL ] (unknown) (no (unknown) (unknown) GenericComposite[R (units (unknown) date) BC 4.08 (4.0-5.2) unknown) X10^6/uL ] (unknown) (no (unknown) (unknown) GenericComposite[W (units (unknown) date) BC (4.5-11.0) unknown) X10^3/uL ] (unknown) (no (unknown) (unknown) GenericComposite[W (units (unknown) date) BC 6.6 (4.5-11.0) unknown) X10^3/uL ] (unknown) (no (unknown) (unknown) Globulin (1.7-4.1) (units (unknown) date) g/dL unknown) (unknown) (no (unknown) (unknown) Globulin 4.2 H (units (unknown) date) (1.7-4.1) g/dL unknown) (unknown) (no (unknown) (unknown) Glucose (80-110) (units (unknown) date) mg/dL unknown) (unknown) (no (unknown) (unknown) Glucose 100 (units (un known) date) (80-110) mg/dL unknown) (unknown) (no (unknown) (unknown) Grandfather Cancer (units (unknown) date) unknown) (unknown) (no (unknown) (unknown) HEENT: Moist (units (u nknown) date) mucous membranes, unknown) normal sclera with reactive pupils, (unknown) (no (unknown) (unknown) HPI - (units (unkno wn) date) Skin/Abscess/Foreig unknown) n Bdy (unknown) (no (unknown) (unknown) HPI narrative: (units (unknown) date) unknown) (unknown) (no (unknown) (unknown) Hct (36-46) % (units ( unknown) date) unknown) (unknown) (no (unknown) (unknown) Hct 37.1 (36-46) (units (unknown) date) % unknown) (unknown) (no (unknown) (unknown) He does look like (units (unknown) date) you still have a unknown) bladder infection. Cipro was the appropriate (unknown) (no (unknown) (unknown) Heart:? Mild (units (u nknown) date) cardiomegaly. unknown) (unknown) (no (unknown) (unknown) Hematoma of left (units (unknown) date) lower extremity unknown) (unknown) (no (unknown) (unknown) Hemiparesis (units (un known) date) unknown) (unknown) (no (unknown) (unknown) Hepatitis C (units (un known) date) () unknown) (unknown) (no (unknown) (unknown) Hgb (12.0-16.0) (units (unknown) date) g/dL unknown) (unknown) (no (unknown) (unknown) Hgb 12.1 (units (unkno wn) date) (12.0-16.0) g/dL unknown) (unknown) (no (unknown) (unknown) History of Present (units (unknown) date) Illness unknown) (unknown) (no (unknown) (unknown) Neo Pritchard MD (units (unknown) date) [Primary Care unknown) Provider] - (unknown) (no (unknown) (unknown) IMPRESSION:? (units (u nknown) date) unknown) (unknown) (no (unknown) (unknown) If you find that (units (unknown) date) you are getting unknown) worse or develop any new symptoms, please feel (unknown) (no (unknown) (unknown) Image quality:? (units (unknown) date) Excellent.? unknown) (unknown) (no (unknown) (unknown) Imaging Data (units (u nknown) date) unknown) (unknown) (no (unknown) (unknown) Initial Vital (units ( unknown) date) Signs unknown) (unknown) (no (unknown) (unknown) Initial Vital (units ( unknown) date) Signs: unknown) (unknown) (no (unknown) (unknown) Instructions: DI (units (unknown) date) for Urinary Tract unknown) Infection (UTI) (unknown) (no (unknown) (unknown) Interpretation: (units (unknown) date) unknown) (unknown) (no (unknown) (unknown) Kidneys and (units (un known) date) Ureters:? Symmetric unknown) uptake of IV contrast.? No suspicious mass.? (unknown) (no (unknown) (unknown) Lab Data (units (unkno wn) date) unknown) (unknown) (no (unknown) (unknown) Labs: (units (unkno wn) date) unknown) (unknown) (no (unknown) (unknown) Lactate (0.7-2.1) (units (unknown) date) mmol/L unknown) (unknown) (no (unknown) (unknown) Lactate 0.6 L (units ( unknown) date) (0.7-2.1) mmol/L unknown) (unknown) (no (unknown) (unknown) Lactate (Lactic (units (unknown) date) Acid) Stat unknown) (unknown) (no (unknown) (unknown) Left leg (units (unkno wn) date) cellulitis unknown) (unknown) (no (unknown) (unknown) Liver:? Mild (units (u nknown) date) hepatomegaly and unknown) hepatic steatosis.? No focal lesions. (unknown) (no (unknown) (unknown) Lung bases:? No (units (unknown) date) effusions or unknown) consolidations. (unknown) (no (unknown) (unknown) Lymph # (Auto) (units (unknown) date) (2922-2656) /uL unknown) (unknown) (no (unknown) (unknown) Lymph # (Auto) (units (unknown) date) 2000 (0453-1562) unknown) /uL (unknown) (no (unknown) (unknown) Lymph % (Auto) (units (unknown) date) (25-40) % unknown) (unknown) (no (unknown) (unknown) Lymph % (Auto) (units (unknown) date) 30.4 (25-40) % unknown) (unknown) (no (unknown) (unknown) MCH (26-34) PG (units (unknown) date) unknown) (unknown) (no (unknown) (unknown) MCH 29.8 (26-34) (units (unknown) date) PG unknown) (unknown) (no (unknown) (unknown) MCHC (30-36) % (units (unknown) date) unknown) (unknown) (no (unknown) (unknown) MCHC 32.7 (30-36) (units (unknown) date) % unknown) (unknown) (no (unknown) (unknown) MCV (80-100) fL (units (unknown) date) unknown) (unknown) (no (unknown) (unknown) MCV 91.0 (80-100) (units (unknown) date) fL unknown) (unknown) (no (unknown) (unknown) MDM - (units (unkno wn) date) Skin/Abscess/Foreig unknown) n Bdy (unknown) (no (unknown) (unknown) MDM Narrative (units ( unknown) date) unknown) (unknown) (no (unknown) (unknown) Magnesium (units (unkn own) date) (1.6-2.3) mg/dL unknown) (unknown) (no (unknown) (unknown) Magnesium 2.3 (units ( unknown) date) (1.6-2.3) mg/dL unknown) (unknown) (no (unknown) (unknown) Magnesium Stat (units (unknown) date) unknown) (unknown) (no (unknown) (unknown) Measles (units (unkno wn) date) unknown) (unknown) (no (unknown) (unknown) Medical History (units (unknown) date) (Updated 12/26/21 @ unknown) 01:51 by Mone Baum MD) (unknown) (no (unknown) (unknown) Medical decision (units (unknown) date) making narrative: unknown) (unknown) (no (unknown) (unknown) Miscellaneous:? (units (unknown) date) Prominent, chronic unknown) left sacral decubitus ulcer extending to the (unknown) (no (unknown) (unknown) Mode of arrival: (units (unknown) date) Wheelchair unknown) (unknown) (no (unknown) (unknown) Moderate (units (unkno wn) date) unknown) (unknown) (no (unknown) (unknown) Jerome # (Auto) (units ( unknown) date) (0-900) /uL unknown) (unknown) (no (unknown) (unknown) Jerome # (Auto) 400 (units (unknown) date) (0-900) /uL unknown) (unknown) (no (unknown) (unknown) Jerome % (Auto) (units ( unknown) date) (3-14) % unknown) (unknown) (no (unknown) (unknown) Jerome % (Auto) 5.4 (units (unknown) date) (3-14) % unknown) (unknown) (no (unknown) (unknown) 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) (unknown) (no (unknown) (unknown) Multiple falls (units (unknown) date) unknown) (unknown) (no (unknown) (unknown) Narrative: (units (unk nown) date) unknown) (unknown) (no (unknown) (unknown) Neck: No JVD, (units ( unknown) date) supple unknown) (unknown) (no (unknown) (unknown) Neurologic: T12 (units (unknown) date) paraplegia, muscle unknown) atrophy in legs bilaterally (unknown) (no (unknown) (unknown) Neut # (Auto) (units ( unknown) date) (2479-6996) /uL unknown) (unknown) (no (unknown) (unknown) Neut # (Auto) 4100 (units (unknown) date) (0628-7355) /uL unknown) (unknown) (no (unknown) (unknown) Neut % (Auto) (units ( unknown) date) (50-75) % unknown) (unknown) (no (unknown) (unknown) Neut % (Auto) 62.6 (units (unknown) date) (50-75) % unknown) (unknown) (no (unknown) (unknown) New (units (unkno wn) date) unknown) (unknown) (no (unknown) (unknown) No Action (units (unkn own) date) unknown) (unknown) (no (unknown) (unknown) No acute ischemic (units (unknown) date) changes unknown) (unknown) (no (unknown) (unknown) No chest pain, (units (unknown) date) palpitations cough unknown) or dyspnea. (unknown) (no (unknown) (unknown) No gallbladder (units (unknown) date) wall thickening. unknown) (unknown) (no (unknown) (unknown) Normal intervals (units (unknown) date) and axis unknown) (unknown) (no (unknown) (unknown) On re-evaluation (units (unknown) date) we discussed the unknown) urinary tract infection and use fullness of (unknown) (no (unknown) (unknown) Ordered: (units (unkno wn) date) unknown) (unknown) (no (unknown) (unknown) Orders (units (unkno wn) date) unknown) (unknown) (no (unknown) (unknown) Oxygen Delivery (units (unknown) date) Method Room Air unknown) (unknown) (no (unknown) (unknown) PELVIS: (units (unkno wn) date) unknown) (unknown) (no (unknown) (unknown) PICC (peripherally (units (unknown) date) inserted central unknown) catheter) in place (unknown) (no (unknown) (unknown) Pancreas:? (units (unk nown) date) Diminutive.? No unknown) acute inflammation. (unknown) (no (unknown) (unknown) Paraplegia (units (unk nown) date) (02/14/16) unknown) (unknown) (no (unknown) (unknown) Paraplegic spinal (units (unknown) date) paralysis unknown) (unknown) (no (unknown) (unknown) Patient (units (unkno wn) date) Disposition: Home unknown) (unknown) (no (unknown) (unknown) Patient History (units (unknown) date) unknown) (unknown) (no (unknown) (unknown) Patient: (units (unkno wn) date) Karina Diallo MR#: unknown) [id number] (unknown) (no (unknown) (unknown) Pelvic Nodes: No (units (unknown) date) enlarged lymph unknown) nodes.? (unknown) (no (unknown) (unknown) Pelvic Organs:? (units (unknown) date) Anteverted uterus.? unknown) Stephens catheter decompressing the urinary (unknown) (no (unknown) (unknown) Penicillins (units (un known) date) Allergy Unknown unknown) Verified 11/28/21 07:23 (unknown) (no (unknown) (unknown) Peritoneum:? No (units (unknown) date) abnormal unknown) intraperitoneal fluid.? No free air.? (unknown) (no (unknown) (unknown) Please keep your (units (unknown) date) appointments with unknown) your primary care doctor, ask about bowel (unknown) (no (unknown) (unknown) Post-op bleeding (units (unknown) date) unknown) (unknown) (no (unknown) (unknown) Potassium (units (unkn own) date) (3.4-5.1) mmol/L unknown) (unknown) (no (unknown) (unknown) Potassium 3.6 (units ( unknown) date) (3.4-5.1) mmol/L unknown) (unknown) (no (unknown) (unknown) Prescriptions: (units (unknown) date) unknown) (unknown) (no (unknown) (unknown) Pressure injury (units (unknown) date) stage: pressure unknown) injury of deep tissue Laterality: unspecified (unknown) (no (unknown) (unknown) Pressure ulcer of (units (unknown) date) contiguous site of unknown) back, buttock and hip, stage 2 (unknown) (no (unknown) (unknown) Pressure ulcer of (units (unknown) date) left thigh unknown) (unknown) (no (unknown) (unknown) Procalcitonin (units ( unknown) date) (<0.5) ng/mL unknown) (unknown) (no (unknown) (unknown) Procalcitonin (units ( unknown) date) 0.08 (<0.5) ng/mL unknown) (unknown) (no (unknown) (unknown) Procalcitonin Stat (units (unknown) date) unknown) (unknown) (no (unknown) (unknown) Psych: (units (unkno wn) date) Cooperative, unknown) appropriate insight and affect (unknown) (no (unknown) (unknown) Pulse Oximetry 99 (units (unknown) date) unknown) (unknown) (no (unknown) (unknown) Pulse Rate 77 (units ( unknown) date) unknown) (unknown) (no (unknown) (unknown) Qualifiers: (units (un known) date) unknown) (unknown) (no (unknown) (unknown) RDW (11.6-14.8) % (units (unknown) date) unknown) (unknown) (no (unknown) (unknown) RDW 14.2 (units (unkno wn) date) (11.6-14.8) % unknown) (unknown) (no (unknown) (unknown) Referrals: (units (unk nown) date) unknown) (unknown) (no (unknown) (unknown) Regarding your (units (unknown) date) pain, I suspect unknown) that your severe constipation/obstip ation is (unknown) (no (unknown) (unknown) Related Data (units (u nknown) date) unknown) (unknown) (no (unknown) (unknown) Remainder of (units (u nknown) date) complete review of unknown) systems is otherwise unremarkable except for (unknown) (no (unknown) (unknown) Respiratory Rate (units (unknown) date) 18 unknown) (unknown) (no (unknown) (unknown) Respiratory: Lungs (units (unknown) date) are clear to unknown) auscultation, no wheezing no rales no rhonchi. (unknown) (no (unknown) (unknown) Result diagrams: (units (unknown) date) unknown) (unknown) (no (unknown) (unknown) Retention of (units (u nknown) date) urine, unspecified unknown) (unknown) (no (unknown) (unknown) Review of Systems (units (unknown) date) unknown) (unknown) (no (unknown) (unknown) SARS-CoV-2 (PCR) (units (unknown) date) (Negative) unknown) (unknown) (no (unknown) (unknown) SARS-CoV-2 (PCR) (units (unknown) date) Negative (Negative) unknown) (unknown) (no (unknown) (unknown) Seasonal allergies (units (unknown) date) unknown) (unknown) (no (unknown) (unknown) Signed By: (units (unk nown) date) unknown) (unknown) (no (unknown) (unknown) Sinus rhythm at a (units (unknown) date) rate of 66 unknown) (unknown) (no (unknown) (unknown) Sister Mental (units ( unknown) date) health problem unknown) (unknown) (no (unknown) (unknown) Skin ulcer of (units ( unknown) date) ankle unknown) (unknown) (no (unknown) (unknown) Skin: Thin, warm (units (unknown) date) and dry. Sacral unknown) area is closely examined. She has a (unknown) (no (unknown) (unknown) Smoking Status: (units (unknown) date) Former smoker unknown) (unknown) (no (unknown) (unknown) Smoking Status: (units (unknown) date) Former smoker unknown) (unknown) (no (unknown) (unknown) Social History (units (unknown) date) (Reviewed 12/25/21 unknown) @ 23:26 by Mone Baum MD) (unknown) (no (unknown) (unknown) Sodium (137-145) (units (unknown) date) mmol/L unknown) (unknown) (no (unknown) (unknown) Sodium 140 (units (unk nown) date) (137-145) mmol/L unknown) (unknown) (no (unknown) (unknown) Source: patient (units (unknown) date) and family unknown) (unknown) (no (unknown) (unknown) Spleen:? Mildly (units (unknown) date) enlarged, stable. unknown) (unknown) (no (unknown) (unknown) Stated complaint: (units (unknown) date) Wound on feet and unknown) bum smell (unknown) (no (unknown) (unknown) Stomach and (units (un known) date) Bowel:? Large unknown) amount of rectal stool.? The colon is redundant and (unknown) (no (unknown) (unknown) Substance Use (units ( unknown) date) Type: marijuana unknown) (unknown) (no (unknown) (unknown) Temperature 97.4 F (units (unknown) date) L 12/25/21 21:43 unknown) (unknown) (no (unknown) (unknown) Temperature 97.4 F (units (unknown) date) L 98.3 F unknown) (unknown) (no (unknown) (unknown) Thank you for (units ( unknown) date) coming in unknown) (unknown) (no (unknown) (unknown) There is (units (unkno wn) date) unknown) (unknown) (no (unknown) (unknown) Time Seen by (units (u nknown) date) Provider: 12/25/21 unknown) 21:46 (unknown) (no (unknown) (unknown) Toe laceration (units (unknown) date) unknown) (unknown) (no (unknown) (unknown) Total Bilirubin (units (unknown) date) (0.2-1.3) mg/dL unknown) (unknown) (no (unknown) (unknown) Total Bilirubin (units (unknown) date) 0.4 (0.2-1.3) mg/dL unknown) (unknown) (no (unknown) (unknown) Total Protein (units ( unknown) date) (6.3-8.2) g/dL unknown) (unknown) (no (unknown) (unknown) Total Protein 8.6 (units (unknown) date) H (6.3-8.2) g/dL unknown) (unknown) (no (unknown) (unknown) Troponin I (units (unk nown) date) (0.01-0.034) ng/mL unknown) (unknown) (no (unknown) (unknown) Troponin I < 0.012 (units (unknown) date) (0.01-0.034) ng/mL unknown) (unknown) (no (unknown) (unknown) Troponin I Stat (units (unknown) date) unknown) (unknown) (no (unknown) (unknown) UTI (urinary tract (units (unknown) date) infection) unknown) (unknown) (no (unknown) (unknown) UTI (urinary tract (units (unknown) date) infection) due to unknown) Enterococcus (unknown) (no (unknown) (unknown) Ur Culture (units (unk nown) date) Indicated? unknown) (unknown) (no (unknown) (unknown) Ur Culture (units (unk nown) date) Indicated? Specimen unknown) cultured (unknown) (no (unknown) (unknown) Ur Leukocyte (units (u nknown) date) Esterase (NEGATIVE) unknown) (unknown) (no (unknown) (unknown) Ur Leukocyte (units (u nknown) date) Esterase 3+ H unknown) (NEGATIVE) (unknown) (no (unknown) (unknown) Ur Specific (units (un known) date) Duarte unknown) (1.000-1.035) (unknown) (no (unknown) (unknown) Ur Specific (units (un known) date) Duarte 1.010 unknown) (1.000-1.035) (unknown) (no (unknown) (unknown) Ur Squamous Epith (units (unknown) date) Cells (0-5/HPF) unknown) (unknown) (no (unknown) (unknown) Ur Squamous Epith (units (unknown) date) Cells 0-1 /hpf unknown) (0-5/HPF) (unknown) (no (unknown) (unknown) Urinalysis and (units (unknown) date) Microscopic Stat unknown) (unknown) (no (unknown) (unknown) Urine Appearance (units (unknown) date) unknown) (unknown) (no (unknown) (unknown) Urine Appearance (units (unknown) date) Cloudy unknown) (unknown) (no (unknown) (unknown) Urine Bacteria (units (unknown) date) (None) unknown) (unknown) (no (unknown) (unknown) Urine Bacteria (units (unknown) date) Many (>30) H (None) unknown) (unknown) (no (unknown) (unknown) Urine Bilirubin (units (unknown) date) (NEGATIVE) unknown) (unknown) (no (unknown) (unknown) Urine Bilirubin (units (unknown) date) Negative (NEGATIVE) unknown) (unknown) (no (unknown) (unknown) Urine Color (units (un known) date) unknown) (unknown) (no (unknown) (unknown) Urine Color Yellow (units (unknown) date) unknown) (unknown) (no (unknown) (unknown) Urine Culture Stat (units (unknown) date) unknown) (unknown) (no (unknown) (unknown) Urine Glucose (UA) (units (unknown) date) (Negative) g/dL unknown) (unknown) (no (unknown) (unknown) Urine Glucose (UA) (units (unknown) date) Negative (Negative) unknown) g/dL (unknown) (no (unknown) (unknown) Urine Ketones (units ( unknown) date) (NEGATIVE) unknown) (unknown) (no (unknown) (unknown) Urine Ketones (units ( unknown) date) Negative (NEGATIVE) unknown) (unknown) (no (unknown) (unknown) Urine Nitrate (units ( unknown) date) (Negative) unknown) (unknown) (no (unknown) (unknown) Urine Nitrate (units ( unknown) date) Positive H unknown) (Negative) (unknown) (no (unknown) (unknown) Urine Occult Blood (units (unknown) date) (Negative) unknown) (unknown) (no (unknown) (unknown) Urine Occult Blood (units (unknown) date) 3+ H (Negative) unknown) (unknown) (no (unknown) (unknown) Urine Protein (units ( unknown) date) (Negative) unknown) (unknown) (no (unknown) (unknown) Urine Protein 2+ H (units (unknown) date) (Negative) unknown) (unknown) (no (unknown) (unknown) Urine RBC (units (unkn own) date) (0-5/HPF) unknown) (unknown) (no (unknown) (unknown) Urine RBC 5-10/hpf (units (unknown) date) H (0-5/HPF) unknown) (unknown) (no (unknown) (unknown) Urine Urobilinogen (units (unknown) date) (0.2) E.U./dL unknown) (unknown) (no (unknown) (unknown) Urine Urobilinogen (units (unknown) date) 0.2 (0.2) E.U./dL unknown) (unknown) (no (unknown) (unknown) Urine WBC (units (unkn own) date) (0-5/HPF) unknown) (unknown) (no (unknown) (unknown) Urine WBC >100/hpf (units (unknown) date) H (0-5/HPF) unknown) (unknown) (no (unknown) (unknown) Urine pH (4.5-8.0) (units (unknown) date) unknown) (unknown) (no (unknown) (unknown) Urine pH 7.0 (units (u nknown) date) (4.5-8.0) unknown) (unknown) (no (unknown) (unknown) Ventral Wall: ? No (units (unknown) date) hernias.? unknown) (unknown) (no (unknown) (unknown) Vessels:? Aorta (units (unknown) date) and inferior vena unknown) cava are normal in size.? Moderate abdominal (unknown) (no (unknown) (unknown) Vital Signs (units (un known) date) unknown) (unknown) (no (unknown) (unknown) Vital signs: (units (u nknown) date) unknown) (unknown) (no (unknown) (unknown) Wound of sacral (units (unknown) date) region, subsequent unknown) encounter (08/29/15) (unknown) (no (unknown) (unknown) [Embedded Image (units (unknown) date) Not Available] unknown) (unknown) (no (unknown) (unknown) accounting (units (unk nown) date) unknown) (unknown) (no (unknown) (unknown) alcohol intake (units (unknown) date) frequency: unknown) holidays/special occasions only (unknown) (no (unknown) (unknown) alcohol intake: (units (unknown) date) never unknown) (unknown) (no (unknown) (unknown) also does not seem (units (unknown) date) to cause pain, good unknown) bowel tones, no flank pain (unknown) (no (unknown) (unknown) alternate (units (unkn own) date) explanations for unknown) the abnormal abdominal exam. (unknown) (no (unknown) (unknown) and acetabulum.? (units (unknown) date) unknown) (unknown) (no (unknown) (unknown) and buttock. There (units (unknown) date) is a 2 x 2 cm area unknown) of slightly increased skin breakdown with (unknown) (no (unknown) (unknown) and heels that are (units (unknown) date) relatively clean unknown) and do not appear to be acutely infected (unknown) (no (unknown) (unknown) aortic (units (unkno wn) date) unknown) (unknown) (no (unknown) (unknown) appointments as (units (unknown) date) well unknown) (unknown) (no (unknown) (unknown) aside from a cup (units (unknown) date) coffee in the unknown) morning. We talked about use of a laxative (unknown) (no (unknown) (unknown) atherosclerotic (units (unknown) date) calcification.? unknown) (unknown) (no (unknown) (unknown) because she does (units (unknown) date) not like the mild unknown) fecal incontinence and mass associated with (unknown) (no (unknown) (unknown) bladder. (units (unkno wn) date) unknown) (unknown) (no (unknown) (unknown) buttocks, feet and (units (unknown) date) heels. She does a unknown) well-padded wheelchair and is doing a good (unknown) (no (unknown) (unknown) cefpodoxime 200 mg (units (unknown) date) tablet 200 mg PO unknown) Q12H #14 tabs 11/28/21 (unknown) (no (unknown) (unknown) chills and fevers, (units (unknown) date) she is concerned unknown) that her wounds are infected. With her T12 (unknown) (no (unknown) (unknown) chlorhexidine (units ( unknown) date) Allergy Mild unknown) ITCHING Verified 11/28/21 07:23 (unknown) (no (unknown) (unknown) ciprofloxacin HCl (units (unknown) date) 500 mg tablet 500 unknown) mg PO BID #20 tabs 12/07/21 (unknown) (no (unknown) (unknown) complete a 10 day (units (unknown) date) course unknown) (unknown) (no (unknown) (unknown) complete and (units (u nknown) date) coherent history. unknown) (unknown) (no (unknown) (unknown) complete emptying (units (unknown) date) of your bowels on a unknown) regular basis. (unknown) (no (unknown) (unknown) contains (units (unkno wn) date) unknown) (unknown) (no (unknown) (unknown) contiguous site of (units (unknown) date) back, buttock and unknown) hip (unknown) (no (unknown) (unknown) contributing. (units ( unknown) date) While I very much unknown) understand not wanting to have stool leaking, (unknown) (no (unknown) (unknown) does note that she (units (unknown) date) had difficulty with unknown) the b.i.d. dosing with the ciprofloxacin. (unknown) (no (unknown) (unknown) dressed and (units (unk nown) date) protected. Toes are unknown) dressed with barrier cream protected and do not (unknown) (no (unknown) (unknown) empty her bowels, (units (unknown) date) avoid persistent unknown) leaking throughout the day. She does have (unknown) (no (unknown) (unknown) ertapenem Allergy (units (unknown) date) Severe SEIZURES unknown) Verified 11/28/21 07:23 (unknown) (no (unknown) (unknown) extremities. She (units (unknown) date) has some minor unknown) breakdown on her right heel that is covered (unknown) (no (unknown) (unknown) femoral head (units (u nknown) date) unknown) (unknown) (no (unknown) (unknown) femoroacetabular (units (unknown) date) joint effusions.? unknown) Cortical regularity involving the left (unknown) (no (unknown) (unknown) fluoroquinolones (units (unknown) date) and she was treated unknown) with ciprofloxacin. (unknown) (no (unknown) (unknown) for any palpable (units (unknown) date) mass.? Stomach and unknown) small bowel loops are within normal limits. (unknown) (no (unknown) (unknown) free to return to (units (unknown) date) the emergency unknown) department for further evaluation. (unknown) (no (unknown) (unknown) fundus.? (units (unkno wn) date) unknown) (unknown) (no (unknown) (unknown) her prior bowel (units (unknown) date) habits. In the unknown) distant past she states that she has been fairly (unknown) (no (unknown) (unknown) household members: (units (unknown) date) none unknown) (unknown) (no (unknown) (unknown) hydrocodone 5 (units ( unknown) date) mg-acetaminophen unknown) 325 1 tab PO Q6H PRN pain #10 tabs 11/28/21 (unknown) (no (unknown) (unknown) importance of (units ( unknown) date) fiber water and unknown) trying to establish a routine bowel pattern to (unknown) (no (unknown) (unknown) increasing areas (units (unknown) date) of erythema or unknown) worsening skin breakdown. (unknown) (no (unknown) (unknown) irregularity of (units (unknown) date) unknown) (unknown) (no (unknown) (unknown) is establishing (units (unknown) date) care with a new unknown) doctor and will review all of these issues. She (unknown) (no (unknown) (unknown) ischial (units (unkno wn) date) unknown) (unknown) (no (unknown) (unknown) job of keeping the (units (unknown) date) wounds covered but unknown) has not yet been able to establish care (unknown) (no (unknown) (unknown) lactose AdvReac (units (unknown) date) Unknown Verified unknown) 11/28/21 07:23 (unknown) (no (unknown) (unknown) laterality (units (unk nown) date) Qualified Code(s): unknown) L89.46 - Pressure-induced deep tissue damage of (unknown) (no (unknown) (unknown) left hydroureter.? (units (unknown) date) No urinary unknown) calcifications. (unknown) (no (unknown) (unknown) left worse (units (unk nown) date) unknown) (unknown) (no (unknown) (unknown) levofloxacin 750 (units (unknown) date) mg tablet 750 mg PO unknown) DAILY #10 tabs 12/26/21 (unknown) (no (unknown) (unknown) levothyroxine 50 (units (unknown) date) mcg tablet 50 mcg unknown) PO DAILY #30 tabs 10/12/19 (unknown) (no (unknown) (unknown) linezolid (units (unkn own) date) [LINEZOLID] Allergy unknown) Mild Verified 11/28/21 07:23 (unknown) (no (unknown) (unknown) mass. (units (unkno wn) date) unknown) (unknown) (no (unknown) (unknown) metronidazole 500 (units (unknown) date) mg tablet 500 mg unknown) .Route .COMPLEX 03/17/20 (unknown) (no (unknown) (unknown) mg tablet (units (unkn own) date) unknown) (unknown) (no (unknown) (unknown) mild right (units (unk nown) date) unknown) (unknown) (no (unknown) (unknown) moderate stool.? (units (unknown) date) This is unknown) particularly seen in the right lower quadrant, likely (unknown) (no (unknown) (unknown) not complain of (units (unknown) date) abdominal pain but unknown) feels that she has been more bloated recently (unknown) (no (unknown) (unknown) once a day, (units (un known) date) Levaquin. I have unknown) given you the 1st dose today and you need to (unknown) (no (unknown) (unknown) oxybutynin (units (unk nown) date) chloride 5 mg unknown) tablet 10 mg PO TID 03/17/20 (unknown) (no (unknown) (unknown) paraplegia she has (units (unknown) date) incomplete sensory unknown) loss, some sensation of her abdomen does (unknown) (no (unknown) (unknown) poor overall (units (u nknown) date) sphincter tone and unknown) this may continue to be an issue for her. She (unknown) (no (unknown) (unknown) posterior (units (unkn own) date) subluxation of both unknown) femoroacetabular joints and prominent left and (unknown) (no (unknown) (unknown) red and there is (units (unknown) date) definitely no unknown) draining or tunneling abscesses, there is no (unknown) (no (unknown) (unknown) regimens, home (units (unknown) date) health care and unknown) make sure that you keep your wound care (unknown) (no (unknown) (unknown) sennosides 8.6 mg (units (unknown) date) tablet (senna) 17.2 unknown) mg PO BEDTIME #60 tabs 03/17/20 (unknown) (no (unknown) (unknown) she has an (units (unk nown) date) indwelling Stephens unknown) catheter and is wondering if she might have a (unknown) (no (unknown) (unknown) significant amount (units (unknown) date) of a well-healed unknown) scar tissue over the majority of her sacrum (unknown) (no (unknown) (unknown) significant odor (units (unknown) date) unknown) (unknown) (no (unknown) (unknown) than right, and (units (unknown) date) 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 Cortical (unknown) (no (unknown) (unknown) that included in (units (unknown) date) the HPI. unknown) (unknown) (no (unknown) (unknown) the Stephens catheter (units (unknown) date) in place. I also unknown) recommended 10 days of levofloxacin. She (unknown) (no (unknown) (unknown) the left femoral (units (unknown) date) head has unknown) progressed. (unknown) (no (unknown) (unknown) then working on a (units (unknown) date) daily routine to unknown) have more regular bowel movements and more (unknown) (no (unknown) (unknown) today. Indwelling (units (unknown) date) catheter that does unknown) suggest significant abnormalities. (unknown) (no (unknown) (unknown) tomorrow (units (unkno wn) date) unknown) (unknown) (no (unknown) (unknown) tomorrow to get (units (unknown) date) rid of the large unknown) stool bolus she currently has along with the (unknown) (no (unknown) (unknown) tuberosity. There (units (unknown) date) is diffuse truncal unknown) and lower extremity muscular atrophy. (unknown) (no (unknown) (unknown) urinary tract (units ( unknown) date) infection. She does unknown) not describe headaches, nausea or vomiting. (unknown) (no (unknown) (unknown) using Imodium to (units (unknown) date) prevent this is unknown) making the problems worse. I would recommend (unknown) (no (unknown) (unknown) using a laxative (units (unknown) date) tomorrow to see if unknown) you can completely empty your bowels and (unknown) (no (unknown) (unknown) with wound care. (units (unknown) date) She states that unknown) over the last ?bit of time? seemingly days to Result panel 72 (unknown) (no (unknown) (unknown) >100,000 CFU/ml (unkno wn) date) (unknown) (no (unknown) (unknown) GenericComposite[ (units (unknown) date) STAAUR^Staphylococ unknown) cus aureus] (unknown) (no (unknown) (unknown) Identification (units (unknown) date) and Sensitivity to unknown) Follow Result panel 73 (unknown) (no date) (unknown) (unknown) (no value) (units (un known) unknown) (unknown) (no date) (unknown) (unknown) NO GROWTH (units (unk nown) AFTER 24 unknown) HOURS Result panel 74 (unknown) (no date) (unknown) (unknown) (no value) (units (un known) unknown) (unknown) (no date) (unknown) (unknown) NO GROWTH (units (unk nown) AFTER 24 unknown) HOURS Result panel 75 (unknown) (no date) (unknown) (unknown) >100,000 CFU/ml (unkn own) (unknown) (no date) (unknown) (unknown) >=16 (units (unkn own) unknown) (unknown) (no date) (unknown) (unknown) >=4 (units (unkn own) unknown) (unknown) (no date) (unknown) (unknown) >=8 (units (unkn own) unknown) (unknown) (no date) (unknown) (unknown) <=16 (units (unkn own) unknown) (unknown) (no date) (unknown) (unknown) 1 (units (unkn own) unknown) (unknown) (no date) (unknown) (unknown) 160 (units (unkn own) unknown) (unknown) (no date) (unknown) (unknown) 2 (units (unkn own) unknown) (unknown) (no date) (unknown) (unknown) 4 (units (unkn own) unknown) (unknown) (no date) (unknown) (unknown) 8 (units (unkn own) unknown) (unknown) (no date) (unknown) (unknown) GenericCompos (units (unknown) ite[MRSA^Methi unknown) cillin Resis Staph Aureus] (unknown) (no date) (unknown) (unknown) NOHEMI BELL (units (unkn own) unknown) (unknown) (no date) (unknown) (unknown) No Further (units (un known) Workup unknown) (unknown) (no date) (unknown) (unknown) YES (units (unkn own) unknown) Result panel 76 (unknown) (no (unknown) (unknown) (no value) (units (unk nown) date) unknown) (unknown) (no (unknown) (unknown) Radiologist's (units ( unknown) date) Impression: unknown) (unknown) (no (unknown) (unknown) Date of Service: (units (unknown) date) 12/25/21 unknown) (unknown) (no (unknown) (unknown) (no value) (units (unk nown) date) unknown) (unknown) (no (unknown) (unknown) <Electronically (units (unknown) date) signed by Mone Nair unknown) MD Sarika> (unknown) (no (unknown) (unknown) ADDENDUM (units (u nknown) date) unknown) (unknown) (no (unknown) (unknown) 12/25/21 22:15 (units (unknown) date) unknown) (unknown) (no (unknown) (unknown) 12/26/21 0152 (units ( unknown) date) unknown) (unknown) (no (unknown) (unknown) 12/27/21 0838 (units ( unknown) date) unknown) (unknown) (no (unknown) (unknown) 1 tab PO Q6H PRN (units (unknown) date) (Reason: pain) Qty: unknown) 10 0RF (unknown) (no (unknown) (unknown) 10 mg PO TID (units (u nknown) date) unknown) (unknown) (no (unknown) (unknown) 17.2 mg PO BEDTIME (units (unknown) date) Qty: 60 5RF unknown) (unknown) (no (unknown) (unknown) 200 mg PO Q12H (units (unknown) date) Qty: 14 0RF unknown) (unknown) (no (unknown) (unknown) 50 mcg PO DAILY (units (unknown) date) Qty: 30 5RF unknown) (unknown) (no (unknown) (unknown) 500 mg .ROUTE (units ( unknown) date) .COMPLEX unknown) (unknown) (no (unknown) (unknown) 500 mg PO BID Qty: (units (unknown) date) 20 0RF unknown) (unknown) (no (unknown) (unknown) 500 mg crush and (units (unknown) date) apply topically to unknown) wound twice weekly; (unknown) (no (unknown) (unknown) 750 mg PO DAILY (units (unknown) date) Qty: 10 0RF unknown) (unknown) (no (unknown) (unknown) Allergies (units (unkn own) date) unknown) (unknown) (no (unknown) (unknown) Diabetes mellitus (units (unknown) date) unknown) (unknown) (no (unknown) (unknown) ED Orders (units (unkn own) date) unknown) (unknown) (no (unknown) (unknown) Emergency Report (units (unknown) date) unknown) (unknown) (no (unknown) (unknown) Home Medications (units (unknown) date) unknown) (unknown) (no (unknown) (unknown) [facility] (units (unknown) date) [address] unknown) [place] [address] (unknown) (no (unknown) (unknown) Lab Results (units (un known) date) unknown) (unknown) (no (unknown) (unknown) Previous Rx's (units ( unknown) date) unknown) (unknown) (no (unknown) (unknown) Rx Instructions: (units (unknown) date) unknown) (unknown) (no (unknown) (unknown) Vital Signs - 8 hr (units (unknown) date) unknown) (unknown) (no (unknown) (unknown) must administer (units (unknown) date) with a meal/food unknown) (unknown) (no (unknown) (unknown) (no value) (units (unk nown) date) unknown) (unknown) (no (unknown) (unknown) 12/25/21 12/25/21 (units (unknown) date) 12/25/21 unknown) Range/Units (unknown) (no (unknown) (unknown) 12/25/21 12/25/21 (units (unknown) date) Range/Units unknown) (unknown) (no (unknown) (unknown) 22:15 22:15 (units (un known) date) unknown) (unknown) (no (unknown) (unknown) 22:15 22:15 22:15 (units (unknown) date) unknown) (unknown) (no (unknown) (unknown) She does not (units (u nknown) date) worsening decubitus unknown) ulcers, abdominal infection, cancers or (unknown) (no (unknown) (unknown) cefpodoxime 200 mg (units (unknown) date) tablet unknown) (unknown) (no (unknown) (unknown) ciprofloxacin HCl (units (unknown) date) [Cipro] 500 mg unknown) tablet (unknown) (no (unknown) (unknown) hydrocodone-acetam (units (unknown) date) inophen 5-325 mg unknown) tablet (unknown) (no (unknown) (unknown) levofloxacin 750 (units (unknown) date) mg tablet unknown) (unknown) (no (unknown) (unknown) levothyroxine (units ( unknown) date) [Synthroid] 50 mcg unknown) tablet (unknown) (no (unknown) (unknown) metronidazole 500 (units (unknown) date) mg tablet unknown) (unknown) (no (unknown) (unknown) oxybutynin (units (unk nown) date) chloride 5 mg unknown) tablet (unknown) (no (unknown) (unknown) sennosides [senna] (units (unknown) date) 8.6 mg tablet unknown) (unknown) (no (unknown) (unknown) 12/25/21 (units (unkno wn) date) unknown) (unknown) (no (unknown) (unknown) Full and (units (unkno wn) date) symmetrical air unknown) movement (unknown) (no (unknown) (unknown) Medication (units (unk nown) date) Instructions unknown) Recorded (unknown) (no (unknown) (unknown) Medication (units (unk nown) date) Instructions unknown) Recorded Confirmed (unknown) (no (unknown) (unknown) Pressure injury (units (unknown) date) location: unknown) contiguous region involving back, buttock, and hip (unknown) (no (unknown) (unknown) She notes that she (units (unknown) date) has recently begun unknown) taking Imodium to prevent bowel movement (unknown) (no (unknown) (unknown) Urinary tract (units ( unknown) date) infection, unknown) Obstipation (unknown) (no (unknown) (unknown) a Stephens catheter (units (unknown) date) in place. None of unknown) the areas look like they are particularly (unknown) (no (unknown) (unknown) antibiotic but I (units (unknown) date) am going to change unknown) it to one just slightly stronger and only (unknown) (no (unknown) (unknown) early complaints. (units (unknown) date) Urine at that time unknown) grew out Pseudomonas sensitive to (unknown) (no (unknown) (unknown) has an appointment (units (unknown) date) with wound care unknown) coming up on the . (unknown) (no (unknown) (unknown) regular with bowel (units (unknown) date) movements and has unknown) done so without significant manipulation (unknown) (no (unknown) (unknown) show significant (units (unknown) date) skin breakdown. unknown) There is no cellulitis, drainage or (unknown) (no (unknown) (unknown) underlying fat (units (unknown) date) tissue appreciated unknown) without discharge or erythema. She does have (unknown) (no (unknown) (unknown) (Cipro) (units (unkno wn) date) unknown) (unknown) (no (unknown) (unknown) (Synthroid) (units (un known) date) unknown) (unknown) (no (unknown) (unknown) .O.> 12/27/21 0838 (units (unknown) date) unknown) (unknown) (no (unknown) (unknown) 12/25/21 22:15 (units (unknown) date) unknown) (unknown) (no (unknown) (unknown) 12/25/21 22:19 (units (unknown) date) unknown) (unknown) (no (unknown) (unknown) 12/25/21 22:21 (units (unknown) date) unknown) (unknown) (no (unknown) (unknown) 12/25/21 22:53 (units (unknown) date) unknown) (unknown) (no (unknown) (unknown) 0807 (units (unkno wn) date) unknown) (unknown) (no (unknown) (unknown) 1-2 weeks, she has (units (unknown) date) been feeling unknown) increasingly worse with which she feels are (unknown) (no (unknown) (unknown) 1. Proximal (units (un known) date) colonic obstipation unknown) may account for right lower quadrant palpable (unknown) (no (unknown) (unknown) 2. Marked rectal (units (unknown) date) obstipation, worse unknown) compared to the prior study. (unknown) (no (unknown) (unknown) 21:43 12/25/21 (units (unknown) date) unknown) (unknown) (no (unknown) (unknown) 22:00 (units (unkno wn) date) unknown) (unknown) (no (unknown) (unknown) 3. Chronic sacral (units (unknown) date) decubitus ulcer, unknown) posterior subluxation of both hip joints, (unknown) (no (unknown) (unknown) 4. Mild (units (unkno wn) date) hepatomegaly and unknown) hepatic steatosis. (unknown) (no (unknown) (unknown) 5. (units (unkno wn) date) Cholelithiasis.? unknown) (unknown) (no (unknown) (unknown) 66-year-old T12 (units (unknown) date) paraplegic, chronic unknown) indwelling Stephens catheter, pressure over her (unknown) (no (unknown) (unknown) 66-year-old woman (units (unknown) date) with T12 unknown) paraplegia, chronic pressure wounds of her buttocks (unknown) (no (unknown) (unknown) ? 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 (unknown) (no (unknown) (unknown) ABDOMEN: (units (unkno wn) date) unknown) (unknown) (no (unknown) (unknown) AF (paroxysmal (units (unknown) date) atrial unknown) fibrillation) (unknown) (no (unknown) (unknown) ALT (<35) IU/L (units (unknown) date) unknown) (unknown) (no (unknown) (unknown) ALT 47 H (<35) (units (unknown) date) IU/L unknown) (unknown) (no (unknown) (unknown) AST (14-36) IU/L (units (unknown) date) unknown) (unknown) (no (unknown) (unknown) AST 53 H (14-36) (units (unknown) date) IU/L unknown) (unknown) (no (unknown) (unknown) Abdomen: Soft, (units (unknown) date) large mass in the unknown) right lower quadrant that is not mobile but (unknown) (no (unknown) (unknown) Abdominal Nodes:? (units (unknown) date) No retroperitoneal unknown) or mesenteric adenopathy by size criteria.? (unknown) (no (unknown) (unknown) Abrasion, left (units (unknown) date) lower leg, initial unknown) encounter (unknown) (no (unknown) (unknown) Abscess and (units (un known) date) cellulitis of unknown) gluteal region (unknown) (no (unknown) (unknown) Activity (units (unkno wn) date) Restrictions/Additi unknown) onal Instructions: (unknown) (no (unknown) (unknown) Acute UTI (units (unkn own) date) unknown) (unknown) (no (unknown) (unknown) Acute hypokalemia (units (unknown) date) unknown) (unknown) (no (unknown) (unknown) Acute narcotic (units (unknown) date) withdrawal without unknown) complication (unknown) (no (unknown) (unknown) Addendum (units (unkno wn) date) Documented By: unknown) Anisa Burton D.O. (unknown) (no (unknown) (unknown) Addendum Signed (units (unknown) date) By: <Electronically unknown) signed by Fuentes Hoskins (unknown) (no (unknown) (unknown) Adrenal Glands:? (units (unknown) date) No adrenal masses. unknown) (unknown) (no (unknown) (unknown) Age/Sex: 66 / F (units (unknown) date) unknown) (unknown) (no (unknown) (unknown) Albumin (3.5-5.0) (units (unknown) date) g/dL unknown) (unknown) (no (unknown) (unknown) Albumin 4.4 (units (un known) date) (3.5-5.0) g/dL unknown) (unknown) (no (unknown) (unknown) Albumin/Globulin (units (unknown) date) Ratio (1.0-2.8) unknown) (unknown) (no (unknown) (unknown) Albumin/Globulin (units (unknown) date) Ratio 1.0 (1.0-2.8) unknown) (unknown) (no (unknown) (unknown) Alkaline (units (unkno wn) date) Phosphatase unknown) (38-126) U/L (unknown) (no (unknown) (unknown) Alkaline (units (unkno wn) date) Phosphatase 104 unknown) (38-126) U/L (unknown) (no (unknown) (unknown) Allergy/AdvReac (units (unknown) date) Type Severity unknown) Reaction Status Date / Time (unknown) (no (unknown) (unknown) Also discussed her (units (unknown) date) pain and the unknown) significant obstipation appreciated on CT scan. (unknown) (no (unknown) (unknown) Anemia (units (unkno wn) date) unknown) (unknown) (no (unknown) (unknown) BUN (7-17) mg/dL (units (unknown) date) unknown) (unknown) (no (unknown) (unknown) BUN 14 (7-17) (units ( unknown) date) mg/dL unknown) (unknown) (no (unknown) (unknown) BUN/Creatinine (units (unknown) date) Ratio (6-22) unknown) (unknown) (no (unknown) (unknown) BUN/Creatinine (units (unknown) date) Ratio 29.2 H (6-22) unknown) (unknown) (no (unknown) (unknown) Baso # (Auto) (units ( unknown) date) (0-100) /uL unknown) (unknown) (no (unknown) (unknown) Baso # (Auto) 0 (units (unknown) date) (0-100) /uL unknown) (unknown) (no (unknown) (unknown) Baso % (Auto) (units ( unknown) date) (0-2) % unknown) (unknown) (no (unknown) (unknown) Baso % (Auto) 0.3 (units (unknown) date) (0-2) % unknown) (unknown) (no (unknown) (unknown) Bilateral lower (units (unknown) date) leg cellulitis unknown) (unknown) (no (unknown) (unknown) Biliary ducts:? No (units (unknown) date) visible biliary unknown) dilatation. (unknown) (no (unknown) (unknown) Bladder:? (units (unkn own) date) Diffusely unknown) decompressed. (unknown) (no (unknown) (unknown) Bleeding from PICC (units (unknown) date) line unknown) (unknown) (no (unknown) (unknown) Blood Culture Stat (units (unknown) date) unknown) (unknown) (no (unknown) (unknown) Blood Pressure (units (unknown) date) 146/80 H unknown) (unknown) (no (unknown) (unknown) Bones:? Spinal (units (unknown) date) fusion hardware unknown) throughout the lower thoracic and lumbar spine.? (unknown) (no (unknown) (unknown) Brother Mental (units (unknown) date) health problem unknown) (unknown) (no (unknown) (unknown) COVID19 -Nasal (units (unknown) date) RAPID/Pre-Proc Stat unknown) (unknown) (no (unknown) (unknown) CT abdomen pelvis (units (unknown) date) w con Stat unknown) (unknown) (no (unknown) (unknown) CT scan - (units (unkn own) date) abdomen/pelvis: unknown) (unknown) (no (unknown) (unknown) Calcium (8.4-10.2) (units (unknown) date) mg/dL unknown) (unknown) (no (unknown) (unknown) Calcium 9.3 (units (un known) date) (8.4-10.2) mg/dL unknown) (unknown) (no (unknown) (unknown) Calcium Oxalate (units (unknown) date) Crystal unknown) (unknown) (no (unknown) (unknown) Calcium Oxalate (units (unknown) date) Crystal Few H unknown) (unknown) (no (unknown) (unknown) Carbon Dioxide (units (unknown) date) (22-32) mmol/L unknown) (unknown) (no (unknown) (unknown) Carbon Dioxide 31 (units (unknown) date) (22-32) mmol/L unknown) (unknown) (no (unknown) (unknown) Cardiac: Regular (units (unknown) date) rate and rhythm no unknown) murmurs no bruits (unknown) (no (unknown) (unknown) Cat scratch of (units (unknown) date) face unknown) (unknown) (no (unknown) (unknown) Cellulitis (units (unk nown) date) unknown) (unknown) (no (unknown) (unknown) Chief complaint: (units (unknown) date) Skin/Abscess/Foreig unknown) n Body (unknown) (no (unknown) (unknown) Chloride (98-107) (units (unknown) date) mmol/L unknown) (unknown) (no (unknown) (unknown) Chloride 100 (units (u nknown) date) (98-107) mmol/L unknown) (unknown) (no (unknown) (unknown) 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 Was seen on December 07 for some (unknown) (no (unknown) (unknown) Complete Blood (units (unknown) date) Count AUTO DIFF unknown) Stat (unknown) (no (unknown) (unknown) Comprehensive (units ( unknown) date) Metabolic Panel unknown) Stat (unknown) (no (unknown) (unknown) Contusion of left (units (unknown) date) lower leg, initial unknown) encounter (unknown) (no (unknown) (unknown) Course (units (unkno wn) date) unknown) (unknown) (no (unknown) (unknown) Creatinine (units (unk nown) date) (0.52-1.04) mg/dL unknown) (unknown) (no (unknown) (unknown) Creatinine 0.48 L (units (unknown) date) (0.52-1.04) mg/dL unknown) (unknown) (no (unknown) (unknown) Cutaneous abscess (units (unknown) date) of buttock unknown) (unknown) (no (unknown) (unknown) : 1955 (units (unknown) date) Acct:[id number] unknown) (unknown) (no (unknown) (unknown) Decubitus ulcer (units (unknown) date) unknown) (unknown) (no (unknown) (unknown) Deep vein (units (unkn own) date) thrombosis unknown) (unknown) (no (unknown) (unknown) Departure (units (unkn own) date) unknown) (unknown) (no (unknown) (unknown) Dictated by: (units (u nknown) date) Liset Iraheta M.D. unknown) on 12/25/2021 at 23:30 ? ? (unknown) (no (unknown) (unknown) Discharge Plan (units (unknown) date) unknown) (unknown) (no (unknown) (unknown) Dizziness (units (unkn own) date) unknown) (unknown) (no (unknown) (unknown) ECG Data (units (unkno wn) date) unknown) (unknown) (no (unknown) (unknown) EKG-12 Lead Stat (units (unknown) date) unknown) (unknown) (no (unknown) (unknown) ER Physician: (units ( unknown) date) Mone Baum MD unknown) (unknown) (no (unknown) (unknown) Eos # (Auto) (units (u nknown) date) (0-450) /uL unknown) (unknown) (no (unknown) (unknown) Eos # (Auto) 100 (units (unknown) date) (0-450) /uL unknown) (unknown) (no (unknown) (unknown) Eos % (Auto) (2-4) (units (unknown) date) % unknown) (unknown) (no (unknown) (unknown) Eos % (Auto) 1.3 L (units (unknown) date) (2-4) % unknown) (unknown) (no (unknown) (unknown) Estimated GFR (units ( unknown) date) (>60) mL/min unknown) (unknown) (no (unknown) (unknown) Estimated GFR > 60 (units (unknown) date) (>60) mL/min unknown) (unknown) (no (unknown) (unknown) Exam (units (unkno wn) date) unknown) (unknown) (no (unknown) (unknown) Extremities: No (units (unknown) date) trauma, protective unknown) coverings are in place for her lower (unknown) (no (unknown) (unknown) FINDINGS:? (units (unk nown) date) unknown) (unknown) (no (unknown) (unknown) Fall (units (unkno wn) date) unknown) (unknown) (no (unknown) (unknown) Family History (units (unknown) date) (Reviewed 12/25/21 unknown) @ 23:26 by Mone Baum MD) (unknown) (no (unknown) (unknown) Findings reviewed (units (unknown) date) with patient and unknown) she is safe for home discharge (unknown) (no (unknown) (unknown) Stephens catheter in (units (unknown) date) light of her unknown) chronic decubitus wounds. I recommended keeping (unknown) (no (unknown) (unknown) Gallbladder:? (units ( unknown) date) Small dependently unknown) layering calcified stones near the gallbladder (unknown) (no (unknown) (unknown) General (units (unkno wn) date) unknown) (unknown) (no (unknown) (unknown) General: (units (unkno wn) date) Chronically unknown) ill-appearing but in no acute distress. Able to give a (unknown) (no (unknown) (unknown) GenericComposite[P (units (unknown) date) lt Count (150-400) unknown) X10^3/uL ] (unknown) (no (unknown) (unknown) GenericComposite[P (units (unknown) date) lt Count 237 unknown) (150-400) X10^3/uL ] (unknown) (no (unknown) (unknown) GenericComposite[R (units (unknown) date) BC (4.0-5.2) unknown) X10^6/uL ] (unknown) (no (unknown) (unknown) GenericComposite[R (units (unknown) date) BC 4.08 (4.0-5.2) unknown) X10^6/uL ] (unknown) (no (unknown) (unknown) GenericComposite[W (units (unknown) date) BC (4.5-11.0) unknown) X10^3/uL ] (unknown) (no (unknown) (unknown) GenericComposite[W (units (unknown) date) BC 6.6 (4.5-11.0) unknown) X10^3/uL ] (unknown) (no (unknown) (unknown) Globulin (1.7-4.1) (units (unknown) date) g/dL unknown) (unknown) (no (unknown) (unknown) Globulin 4.2 H (units (unknown) date) (1.7-4.1) g/dL unknown) (unknown) (no (unknown) (unknown) Glucose (80-110) (units (unknown) date) mg/dL unknown) (unknown) (no (unknown) (unknown) Glucose 100 (units (un known) date) (80-110) mg/dL unknown) (unknown) (no (unknown) (unknown) Grandfather Cancer (units (unknown) date) unknown) (unknown) (no (unknown) (unknown) HEENT: Moist (units (u nknown) date) mucous membranes, unknown) normal sclera with reactive pupils, (unknown) (no (unknown) (unknown) HPI - (units (unkno wn) date) Skin/Abscess/Foreig unknown) n Bdy (unknown) (no (unknown) (unknown) HPI narrative: (units (unknown) date) unknown) (unknown) (no (unknown) (unknown) Hct (36-46) % (units ( unknown) date) unknown) (unknown) (no (unknown) (unknown) Hct 37.1 (36-46) % (units (unknown) date) unknown) (unknown) (no (unknown) (unknown) He does look like (units (unknown) date) you still have a unknown) bladder infection. Cipro was the appropriate (unknown) (no (unknown) (unknown) Heart:? Mild (units (u nknown) date) cardiomegaly. unknown) (unknown) (no (unknown) (unknown) Hematoma of left (units (unknown) date) lower extremity unknown) (unknown) (no (unknown) (unknown) Hemiparesis (units (un known) date) unknown) (unknown) (no (unknown) (unknown) Hepatitis C (units (un known) date) () unknown) (unknown) (no (unknown) (unknown) Hgb (12.0-16.0) (units (unknown) date) g/dL unknown) (unknown) (no (unknown) (unknown) Hgb 12.1 (units (unkno wn) date) (12.0-16.0) g/dL unknown) (unknown) (no (unknown) (unknown) History of Present (units (unknown) date) Illness unknown) (unknown) (no (unknown) (unknown) Neo Pritchard MD (units (unknown) date) [Primary Care unknown) Provider] - (unknown) (no (unknown) (unknown) IMPRESSION:? (units (u nknown) date) unknown) (unknown) (no (unknown) (unknown) If you find that (units (unknown) date) you are getting unknown) worse or develop any new symptoms, please feel (unknown) (no (unknown) (unknown) Image quality:? (units (unknown) date) Excellent.? unknown) (unknown) (no (unknown) (unknown) Imaging Data (units (u nknown) date) unknown) (unknown) (no (unknown) (unknown) Initial Vital (units ( unknown) date) Signs unknown) (unknown) (no (unknown) (unknown) Initial Vital (units ( unknown) date) Signs: unknown) (unknown) (no (unknown) (unknown) Instructions: DI (units (unknown) date) for Urinary Tract unknown) Infection (UTI) (unknown) (no (unknown) (unknown) Interpretation: (units (unknown) date) unknown) (unknown) (no (unknown) (unknown) Kidneys and (units (un known) date) Ureters:? Symmetric unknown) uptake of IV contrast.? No suspicious mass.? (unknown) (no (unknown) (unknown) Lab Data (units (unkno wn) date) unknown) (unknown) (no (unknown) (unknown) Labs: (units (unkno wn) date) unknown) (unknown) (no (unknown) (unknown) Lactate (0.7-2.1) (units (unknown) date) mmol/L unknown) (unknown) (no (unknown) (unknown) Lactate 0.6 L (units ( unknown) date) (0.7-2.1) mmol/L unknown) (unknown) (no (unknown) (unknown) Lactate (Lactic (units (unknown) date) Acid) Stat unknown) (unknown) (no (unknown) (unknown) Left leg (units (unkno wn) date) cellulitis unknown) (unknown) (no (unknown) (unknown) Liver:? Mild (units (u nknown) date) hepatomegaly and unknown) hepatic steatosis.? No focal lesions. (unknown) (no (unknown) (unknown) Lung bases:? No (units (unknown) date) effusions or unknown) consolidations. (unknown) (no (unknown) (unknown) Lymph # (Auto) (units (unknown) date) (5132-5078) /uL unknown) (unknown) (no (unknown) (unknown) Lymph # (Auto) (units (unknown) date) 2000 (0576-1727) unknown) /uL (unknown) (no (unknown) (unknown) Lymph % (Auto) (units (unknown) date) (25-40) % unknown) (unknown) (no (unknown) (unknown) Lymph % (Auto) (units (unknown) date) 30.4 (25-40) % unknown) (unknown) (no (unknown) (unknown) MCH (26-34) PG (units (unknown) date) unknown) (unknown) (no (unknown) (unknown) MCH 29.8 (26-34) (units (unknown) date) PG unknown) (unknown) (no (unknown) (unknown) MCHC (30-36) % (units (unknown) date) unknown) (unknown) (no (unknown) (unknown) MCHC 32.7 (30-36) (units (unknown) date) % unknown) (unknown) (no (unknown) (unknown) MCV (80-100) fL (units (unknown) date) unknown) (unknown) (no (unknown) (unknown) MCV 91.0 (80-100) (units (unknown) date) fL unknown) (unknown) (no (unknown) (unknown) MDM - (units (unkno wn) date) Skin/Abscess/Foreig unknown) n Bdy (unknown) (no (unknown) (unknown) MDM Narrative (units ( unknown) date) unknown) (unknown) (no (unknown) (unknown) MRSA urine (units (unk nown) date) multiple unknown) resistances including to Levaquin which she was prescribed. (unknown) (no (unknown) (unknown) Macrobid 100 mg (units (unknown) date) twice a day for 7 unknown) days was sent to [facility] in [place]. (unknown) (no (unknown) (unknown) Magnesium (units (unkn own) date) (1.6-2.3) mg/dL unknown) (unknown) (no (unknown) (unknown) Magnesium 2.3 (units ( unknown) date) (1.6-2.3) mg/dL unknown) (unknown) (no (unknown) (unknown) Magnesium Stat (units (unknown) date) unknown) (unknown) (no (unknown) (unknown) Measles (units (unkno wn) date) unknown) (unknown) (no (unknown) (unknown) Medical History (units (unknown) date) (Updated 12/26/21 @ unknown) 01:51 by Mone Baum MD) (unknown) (no (unknown) (unknown) Medical decision (units (unknown) date) making narrative: unknown) (unknown) (no (unknown) (unknown) Miscellaneous:? (units (unknown) date) Prominent, chronic unknown) left sacral decubitus ulcer extending to the (unknown) (no (unknown) (unknown) Mode of arrival: (units (unknown) date) Wheelchair unknown) (unknown) (no (unknown) (unknown) Moderate (units (unkno wn) date) unknown) (unknown) (no (unknown) (unknown) Jerome # (Auto) (units ( unknown) date) (0-900) /uL unknown) (unknown) (no (unknown) (unknown) Jerome # (Auto) 400 (units (unknown) date) (0-900) /uL unknown) (unknown) (no (unknown) (unknown) Jerome % (Auto) (units ( unknown) date) (3-14) % unknown) (unknown) (no (unknown) (unknown) Jerome % (Auto) 5.4 (units (unknown) date) (3-14) % unknown) (unknown) (no (unknown) (unknown) 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) (unknown) (no (unknown) (unknown) Multiple falls (units (unknown) date) unknown) (unknown) (no (unknown) (unknown) Narrative: (units (unk nown) date) unknown) (unknown) (no (unknown) (unknown) Neck: No JVD, (units ( unknown) date) supple unknown) (unknown) (no (unknown) (unknown) Neurologic: T12 (units (unknown) date) paraplegia, muscle unknown) atrophy in legs bilaterally (unknown) (no (unknown) (unknown) Neut # (Auto) (units ( unknown) date) (6505-2578) /uL unknown) (unknown) (no (unknown) (unknown) Neut # (Auto) 4100 (units (unknown) date) (4152-6555) /uL unknown) (unknown) (no (unknown) (unknown) Neut % (Auto) (units ( unknown) date) (50-75) % unknown) (unknown) (no (unknown) (unknown) Neut % (Auto) 62.6 (units (unknown) date) (50-75) % unknown) (unknown) (no (unknown) (unknown) New (units (unkno wn) date) unknown) (unknown) (no (unknown) (unknown) No Action (units (unkn own) date) unknown) (unknown) (no (unknown) (unknown) No acute ischemic (units (unknown) date) changes unknown) (unknown) (no (unknown) (unknown) No chest pain, (units (unknown) date) palpitations cough unknown) or dyspnea. (unknown) (no (unknown) (unknown) No gallbladder (units (unknown) date) wall thickening. unknown) (unknown) (no (unknown) (unknown) Normal intervals (units (unknown) date) and axis unknown) (unknown) (no (unknown) (unknown) Nursing staff to (units (unknown) date) call patient unknown) (unknown) (no (unknown) (unknown) On re-evaluation (units (unknown) date) we discussed the unknown) urinary tract infection and use fullness of (unknown) (no (unknown) (unknown) Ordered: (units (unkno wn) date) unknown) (unknown) (no (unknown) (unknown) Orders (units (unkno wn) date) unknown) (unknown) (no (unknown) (unknown) Oxygen Delivery (units (unknown) date) Method Room Air unknown) (unknown) (no (unknown) (unknown) PELVIS: (units (unkno wn) date) unknown) (unknown) (no (unknown) (unknown) PICC (peripherally (units (unknown) date) inserted central unknown) catheter) in place (unknown) (no (unknown) (unknown) Pancreas:? (units (unk nown) date) Diminutive.? No unknown) acute inflammation. (unknown) (no (unknown) (unknown) Paraplegia (units (unk nown) date) (02/14/16) unknown) (unknown) (no (unknown) (unknown) Paraplegic spinal (units (unknown) date) paralysis unknown) (unknown) (no (unknown) (unknown) Patient (units (unkno wn) date) Disposition: Home unknown) (unknown) (no (unknown) (unknown) Patient History (units (unknown) date) unknown) (unknown) (no (unknown) (unknown) Patient: (units (unkno wn) date) Karina Diallo MR#: unknown) [id number] (unknown) (no (unknown) (unknown) Pelvic Nodes: No (units (unknown) date) enlarged lymph unknown) nodes.? (unknown) (no (unknown) (unknown) Pelvic Organs:? (units (unknown) date) Anteverted uterus.? unknown) Stephens catheter decompressing the urinary (unknown) (no (unknown) (unknown) Penicillins (units (un known) date) Allergy Unknown unknown) Verified 11/28/21 07:23 (unknown) (no (unknown) (unknown) Peritoneum:? No (units (unknown) date) abnormal unknown) intraperitoneal fluid.? No free air.? (unknown) (no (unknown) (unknown) Please keep your (units (unknown) date) appointments with unknown) your primary care doctor, ask about bowel (unknown) (no (unknown) (unknown) Post-op bleeding (units (unknown) date) unknown) (unknown) (no (unknown) (unknown) Potassium (units (unkn own) date) (3.4-5.1) mmol/L unknown) (unknown) (no (unknown) (unknown) Potassium 3.6 (units ( unknown) date) (3.4-5.1) mmol/L unknown) (unknown) (no (unknown) (unknown) Prescriptions: (units (unknown) date) unknown) (unknown) (no (unknown) (unknown) Pressure injury (units (unknown) date) stage: pressure unknown) injury of deep tissue Laterality: unspecified (unknown) (no (unknown) (unknown) Pressure ulcer of (units (unknown) date) contiguous site of unknown) back, buttock and hip, stage 2 (unknown) (no (unknown) (unknown) Pressure ulcer of (units (unknown) date) left thigh unknown) (unknown) (no (unknown) (unknown) Procalcitonin (units ( unknown) date) (<0.5) ng/mL unknown) (unknown) (no (unknown) (unknown) Procalcitonin 0.08 (units (unknown) date) (<0.5) ng/mL unknown) (unknown) (no (unknown) (unknown) Procalcitonin Stat (units (unknown) date) unknown) (unknown) (no (unknown) (unknown) Psych: (units (unkno wn) date) Cooperative, unknown) appropriate insight and affect (unknown) (no (unknown) (unknown) Pulse Oximetry 99 (units (unknown) date) unknown) (unknown) (no (unknown) (unknown) Pulse Rate 77 (units ( unknown) date) unknown) (unknown) (no (unknown) (unknown) Qualifiers: (units (un known) date) unknown) (unknown) (no (unknown) (unknown) RDW (11.6-14.8) % (units (unknown) date) unknown) (unknown) (no (unknown) (unknown) RDW 14.2 (units (unkno wn) date) (11.6-14.8) % unknown) (unknown) (no (unknown) (unknown) Referrals: (units (unk nown) date) unknown) (unknown) (no (unknown) (unknown) Regarding your (units (unknown) date) pain, I suspect unknown) that your severe constipation/obstip ation is (unknown) (no (unknown) (unknown) Related Data (units (u nknown) date) unknown) (unknown) (no (unknown) (unknown) Remainder of (units (u nknown) date) complete review of unknown) systems is otherwise unremarkable except for (unknown) (no (unknown) (unknown) Respiratory Rate (units (unknown) date) 18 unknown) (unknown) (no (unknown) (unknown) Respiratory: Lungs (units (unknown) date) are clear to unknown) auscultation, no wheezing no rales no rhonchi. (unknown) (no (unknown) (unknown) Result diagrams: (units (unknown) date) unknown) (unknown) (no (unknown) (unknown) Retention of (units (u nknown) date) urine, unspecified unknown) (unknown) (no (unknown) (unknown) Review of Systems (units (unknown) date) unknown) (unknown) (no (unknown) (unknown) SARS-CoV-2 (PCR) (units (unknown) date) (Negative) unknown) (unknown) (no (unknown) (unknown) SARS-CoV-2 (PCR) (units (unknown) date) Negative (Negative) unknown) (unknown) (no (unknown) (unknown) Seasonal allergies (units (unknown) date) unknown) (unknown) (no (unknown) (unknown) Signed By: (units (unk nown) date) unknown) (unknown) (no (unknown) (unknown) Sinus rhythm at a (units (unknown) date) rate of 66 unknown) (unknown) (no (unknown) (unknown) Sister Mental (units ( unknown) date) health problem unknown) (unknown) (no (unknown) (unknown) Skin ulcer of (units ( unknown) date) ankle unknown) (unknown) (no (unknown) (unknown) Skin: Thin, warm (units (unknown) date) and dry. Sacral unknown) area is closely examined. She has a (unknown) (no (unknown) (unknown) Smoking Status: (units (unknown) date) Former smoker unknown) (unknown) (no (unknown) (unknown) Smoking Status: (units (unknown) date) Former smoker unknown) (unknown) (no (unknown) (unknown) Social History (units (unknown) date) (Reviewed 12/25/21 unknown) @ 23:26 by Mone Baum MD) (unknown) (no (unknown) (unknown) Sodium (137-145) (units (unknown) date) mmol/L unknown) (unknown) (no (unknown) (unknown) Sodium 140 (units (unk nown) date) (137-145) mmol/L unknown) (unknown) (no (unknown) (unknown) Source: patient (units (unknown) date) and family unknown) (unknown) (no (unknown) (unknown) Spleen:? Mildly (units (unknown) date) enlarged, stable. unknown) (unknown) (no (unknown) (unknown) Stated complaint: (units (unknown) date) Wound on feet and unknown) bum smell (unknown) (no (unknown) (unknown) Stomach and (units (un known) date) Bowel:? Large unknown) amount of rectal stool.? The colon is redundant and (unknown) (no (unknown) (unknown) Substance Use (units ( unknown) date) Type: marijuana unknown) (unknown) (no (unknown) (unknown) Temperature 97.4 F (units (unknown) date) L 12/25/21 21:43 unknown) (unknown) (no (unknown) (unknown) Temperature 97.4 F (units (unknown) date) L 98.3 F unknown) (unknown) (no (unknown) (unknown) Thank you for (units ( unknown) date) coming in unknown) (unknown) (no (unknown) (unknown) There is (units (unkno wn) date) unknown) (unknown) (no (unknown) (unknown) Time Seen by (units (u nknown) date) Provider: 12/25/21 unknown) 21:46 (unknown) (no (unknown) (unknown) Toe laceration (units (unknown) date) unknown) (unknown) (no (unknown) (unknown) Total Bilirubin (units (unknown) date) (0.2-1.3) mg/dL unknown) (unknown) (no (unknown) (unknown) Total Bilirubin (units (unknown) date) 0.4 (0.2-1.3) mg/dL unknown) (unknown) (no (unknown) (unknown) Total Protein (units ( unknown) date) (6.3-8.2) g/dL unknown) (unknown) (no (unknown) (unknown) Total Protein 8.6 (units (unknown) date) H (6.3-8.2) g/dL unknown) (unknown) (no (unknown) (unknown) Troponin I (units (unk nown) date) (0.01-0.034) ng/mL unknown) (unknown) (no (unknown) (unknown) Troponin I < 0.012 (units (unknown) date) (0.01-0.034) ng/mL unknown) (unknown) (no (unknown) (unknown) Troponin I Stat (units (unknown) date) unknown) (unknown) (no (unknown) (unknown) UTI (urinary tract (units (unknown) date) infection) unknown) (unknown) (no (unknown) (unknown) UTI (urinary tract (units (unknown) date) infection) due to unknown) Enterococcus (unknown) (no (unknown) (unknown) Ur Culture (units (unk nown) date) Indicated? unknown) (unknown) (no (unknown) (unknown) Ur Culture (units (unk nown) date) Indicated? Specimen unknown) cultured (unknown) (no (unknown) (unknown) Ur Leukocyte (units (u nknown) date) Esterase (NEGATIVE) unknown) (unknown) (no (unknown) (unknown) Ur Leukocyte (units (u nknown) date) Esterase 3+ H unknown) (NEGATIVE) (unknown) (no (unknown) (unknown) Ur Specific (units (un known) date) Duarte unknown) (1.000-1.035) (unknown) (no (unknown) (unknown) Ur Specific (units (un known) date) Duarte 1.010 unknown) (1.000-1.035) (unknown) (no (unknown) (unknown) Ur Squamous Epith (units (unknown) date) Cells (0-5/HPF) unknown) (unknown) (no (unknown) (unknown) Ur Squamous Epith (units (unknown) date) Cells 0-1 /hpf unknown) (0-5/HPF) (unknown) (no (unknown) (unknown) Urinalysis and (units (unknown) date) Microscopic Stat unknown) (unknown) (no (unknown) (unknown) Urine Appearance (units (unknown) date) unknown) (unknown) (no (unknown) (unknown) Urine Appearance (units (unknown) date) Cloudy unknown) (unknown) (no (unknown) (unknown) Urine Bacteria (units (unknown) date) (None) unknown) (unknown) (no (unknown) (unknown) Urine Bacteria (units (unknown) date) Many (>30) H (None) unknown) (unknown) (no (unknown) (unknown) Urine Bilirubin (units (unknown) date) (NEGATIVE) unknown) (unknown) (no (unknown) (unknown) Urine Bilirubin (units (unknown) date) Negative (NEGATIVE) unknown) (unknown) (no (unknown) (unknown) Urine Color (units (un known) date) unknown) (unknown) (no (unknown) (unknown) Urine Color Yellow (units (unknown) date) unknown) (unknown) (no (unknown) (unknown) Urine Culture Stat (units (unknown) date) unknown) (unknown) (no (unknown) (unknown) Urine Glucose (UA) (units (unknown) date) (Negative) g/dL unknown) (unknown) (no (unknown) (unknown) Urine Glucose (UA) (units (unknown) date) Negative (Negative) unknown) g/dL (unknown) (no (unknown) (unknown) Urine Ketones (units ( unknown) date) (NEGATIVE) unknown) (unknown) (no (unknown) (unknown) Urine Ketones (units ( unknown) date) Negative (NEGATIVE) unknown) (unknown) (no (unknown) (unknown) Urine Nitrate (units ( unknown) date) (Negative) unknown) (unknown) (no (unknown) (unknown) Urine Nitrate (units ( unknown) date) Positive H unknown) (Negative) (unknown) (no (unknown) (unknown) Urine Occult Blood (units (unknown) date) (Negative) unknown) (unknown) (no (unknown) (unknown) Urine Occult Blood (units (unknown) date) 3+ H (Negative) unknown) (unknown) (no (unknown) (unknown) Urine Protein (units ( unknown) date) (Negative) unknown) (unknown) (no (unknown) (unknown) Urine Protein 2+ H (units (unknown) date) (Negative) unknown) (unknown) (no (unknown) (unknown) Urine RBC (units (unkn own) date) (0-5/HPF) unknown) (unknown) (no (unknown) (unknown) Urine RBC 5-10/hpf (units (unknown) date) H (0-5/HPF) unknown) (unknown) (no (unknown) (unknown) Urine Urobilinogen (units (unknown) date) (0.2) E.U./dL unknown) (unknown) (no (unknown) (unknown) Urine Urobilinogen (units (unknown) date) 0.2 (0.2) E.U./dL unknown) (unknown) (no (unknown) (unknown) Urine WBC (units (unkn own) date) (0-5/HPF) unknown) (unknown) (no (unknown) (unknown) Urine WBC >100/hpf (units (unknown) date) H (0-5/HPF) unknown) (unknown) (no (unknown) (unknown) Urine pH (4.5-8.0) (units (unknown) date) unknown) (unknown) (no (unknown) (unknown) Urine pH 7.0 (units (u nknown) date) (4.5-8.0) unknown) (unknown) (no (unknown) (unknown) Ventral Wall: ? No (units (unknown) date) hernias.? unknown) (unknown) (no (unknown) (unknown) Vessels:? Aorta (units (unknown) date) and inferior vena unknown) cava are normal in size.? Moderate abdominal (unknown) (no (unknown) (unknown) Vital Signs (units (un known) date) unknown) (unknown) (no (unknown) (unknown) Vital signs: (units (u nknown) date) unknown) (unknown) (no (unknown) (unknown) Wound of sacral (units (unknown) date) region, subsequent unknown) encounter (08/29/15) (unknown) (no (unknown) (unknown) [Embedded Image (units (unknown) date) Not Available] unknown) (unknown) (no (unknown) (unknown) accounting (units (unk nown) date) unknown) (unknown) (no (unknown) (unknown) alcohol intake (units (unknown) date) frequency: unknown) holidays/special occasions only (unknown) (no (unknown) (unknown) alcohol intake: (units (unknown) date) never unknown) (unknown) (no (unknown) (unknown) also does not seem (units (unknown) date) to cause pain, good unknown) bowel tones, no flank pain (unknown) (no (unknown) (unknown) alternate (units (unkn own) date) explanations for unknown) the abnormal abdominal exam. (unknown) (no (unknown) (unknown) and acetabulum.? (units (unknown) date) unknown) (unknown) (no (unknown) (unknown) and buttock. There (units (unknown) date) is a 2 x 2 cm area unknown) of slightly increased skin breakdown with (unknown) (no (unknown) (unknown) and heels that are (units (unknown) date) relatively clean unknown) and do not appear to be acutely infected (unknown) (no (unknown) (unknown) aortic (units (unkno wn) date) unknown) (unknown) (no (unknown) (unknown) appointments as (units (unknown) date) well unknown) (unknown) (no (unknown) (unknown) aside from a cup (units (unknown) date) coffee in the unknown) morning. We talked about use of a laxative (unknown) (no (unknown) (unknown) atherosclerotic (units (unknown) date) calcification.? unknown) (unknown) (no (unknown) (unknown) because she does (units (unknown) date) not like the mild unknown) fecal incontinence and mass associated with (unknown) (no (unknown) (unknown) bladder. (units (unkno wn) date) unknown) (unknown) (no (unknown) (unknown) buttocks, feet and (units (unknown) date) heels. She does a unknown) well-padded wheelchair and is doing a good (unknown) (no (unknown) (unknown) cefpodoxime 200 mg (units (unknown) date) tablet 200 mg PO unknown) Q12H #14 tabs 11/28/21 (unknown) (no (unknown) (unknown) chills and fevers, (units (unknown) date) she is concerned unknown) that her wounds are infected. With her T12 (unknown) (no (unknown) (unknown) chlorhexidine (units ( unknown) date) Allergy Mild unknown) ITCHING Verified 11/28/21 07:23 (unknown) (no (unknown) (unknown) ciprofloxacin HCl (units (unknown) date) 500 mg tablet 500 unknown) mg PO BID #20 tabs 12/07/21 (unknown) (no (unknown) (unknown) complete a 10 day (units (unknown) date) course unknown) (unknown) (no (unknown) (unknown) complete and (units (u nknown) date) coherent history. unknown) (unknown) (no (unknown) (unknown) complete emptying (units (unknown) date) of your bowels on a unknown) regular basis. (unknown) (no (unknown) (unknown) contains (units (unkno wn) date) unknown) (unknown) (no (unknown) (unknown) contiguous site of (units (unknown) date) back, buttock and unknown) hip (unknown) (no (unknown) (unknown) contributing. (units ( unknown) date) While I very much unknown) understand not wanting to have stool leaking, (unknown) (no (unknown) (unknown) does note that she (units (unknown) date) had difficulty with unknown) the b.i.d. dosing with the ciprofloxacin. (unknown) (no (unknown) (unknown) dressed and (units (unk nown) date) protected. Toes are unknown) dressed with barrier cream protected and do not (unknown) (no (unknown) (unknown) empty her bowels, (units (unknown) date) avoid persistent unknown) leaking throughout the day. She does have (unknown) (no (unknown) (unknown) ertapenem Allergy (units (unknown) date) Severe SEIZURES unknown) Verified 11/28/21 07:23 (unknown) (no (unknown) (unknown) extremities. She (units (unknown) date) has some minor unknown) breakdown on her right heel that is covered (unknown) (no (unknown) (unknown) femoral head (units (u nknown) date) unknown) (unknown) (no (unknown) (unknown) femoroacetabular (units (unknown) date) joint effusions.? unknown) Cortical regularity involving the left (unknown) (no (unknown) (unknown) fluoroquinolones (units (unknown) date) and she was treated unknown) with ciprofloxacin. (unknown) (no (unknown) (unknown) for any palpable (units (unknown) date) mass.? Stomach and unknown) small bowel loops are within normal limits. (unknown) (no (unknown) (unknown) free to return to (units (unknown) date) the emergency unknown) department for further evaluation. (unknown) (no (unknown) (unknown) fundus.? (units (unkno wn) date) unknown) (unknown) (no (unknown) (unknown) her prior bowel (units (unknown) date) habits. In the unknown) distant past she states that she has been fairly (unknown) (no (unknown) (unknown) household members: (units (unknown) date) none unknown) (unknown) (no (unknown) (unknown) hydrocodone 5 (units ( unknown) date) mg-acetaminophen unknown) 325 1 tab PO Q6H PRN pain #10 tabs 11/28/21 (unknown) (no (unknown) (unknown) importance of (units ( unknown) date) fiber water and unknown) trying to establish a routine bowel pattern to (unknown) (no (unknown) (unknown) increasing areas (units (unknown) date) of erythema or unknown) worsening skin breakdown. (unknown) (no (unknown) (unknown) irregularity of (units (unknown) date) unknown) (unknown) (no (unknown) (unknown) is establishing (units (unknown) date) care with a new unknown) doctor and will review all of these issues. She (unknown) (no (unknown) (unknown) ischial (units (unkno wn) date) unknown) (unknown) (no (unknown) (unknown) job of keeping the (units (unknown) date) wounds covered but unknown) has not yet been able to establish care (unknown) (no (unknown) (unknown) lactose AdvReac (units (unknown) date) Unknown Verified unknown) 11/28/21 07:23 (unknown) (no (unknown) (unknown) laterality (units (unk nown) date) Qualified Code(s): unknown) L89.46 - Pressure-induced deep tissue damage of (unknown) (no (unknown) (unknown) left hydroureter.? (units (unknown) date) No urinary unknown) calcifications. (unknown) (no (unknown) (unknown) left worse (units (unk nown) date) unknown) (unknown) (no (unknown) (unknown) levofloxacin 750 (units (unknown) date) mg tablet 750 mg PO unknown) DAILY #10 tabs 12/26/21 (unknown) (no (unknown) (unknown) levothyroxine 50 (units (unknown) date) mcg tablet 50 mcg unknown) PO DAILY #30 tabs 10/12/19 (unknown) (no (unknown) (unknown) linezolid (units (unkn own) date) [LINEZOLID] Allergy unknown) Mild Verified 11/28/21 07:23 (unknown) (no (unknown) (unknown) mass. (units (unkno wn) date) unknown) (unknown) (no (unknown) (unknown) metronidazole 500 (units (unknown) date) mg tablet 500 mg unknown) .Route .COMPLEX 03/17/20 (unknown) (no (unknown) (unknown) mg tablet (units (unkn own) date) unknown) (unknown) (no (unknown) (unknown) mild right (units (unk nown) date) unknown) (unknown) (no (unknown) (unknown) moderate stool.? (units (unknown) date) This is unknown) particularly seen in the right lower quadrant, likely (unknown) (no (unknown) (unknown) not complain of (units (unknown) date) abdominal pain but unknown) feels that she has been more bloated recently (unknown) (no (unknown) (unknown) once a day, (units (un known) date) Levaquin. I have unknown) given you the 1st dose today and you need to (unknown) (no (unknown) (unknown) oxybutynin (units (unk nown) date) chloride 5 mg unknown) tablet 10 mg PO TID 03/17/20 (unknown) (no (unknown) (unknown) paraplegia she has (units (unknown) date) incomplete sensory unknown) loss, some sensation of her abdomen does (unknown) (no (unknown) (unknown) poor overall (units (u nknown) date) sphincter tone and unknown) this may continue to be an issue for her. She (unknown) (no (unknown) (unknown) posterior (units (unkn own) date) subluxation of both unknown) femoroacetabular joints and prominent left and (unknown) (no (unknown) (unknown) red and there is (units (unknown) date) definitely no unknown) draining or tunneling abscesses, there is no (unknown) (no (unknown) (unknown) regimens, home (units (unknown) date) health care and unknown) make sure that you keep your wound care (unknown) (no (unknown) (unknown) sennosides 8.6 mg (units (unknown) date) tablet (senna) 17.2 unknown) mg PO BEDTIME #60 tabs 03/17/20 (unknown) (no (unknown) (unknown) she has an (units (unk nown) date) indwelling Stephens unknown) catheter and is wondering if she might have a (unknown) (no (unknown) (unknown) significant amount (units (unknown) date) of a well-healed unknown) scar tissue over the majority of her sacrum (unknown) (no (unknown) (unknown) significant odor (units (unknown) date) unknown) (unknown) (no (unknown) (unknown) than right, and (units (unknown) date) 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 Cortical (unknown) (no (unknown) (unknown) that included in (units (unknown) date) the HPI. unknown) (unknown) (no (unknown) (unknown) the Stephens catheter (units (unknown) date) in place. I also unknown) recommended 10 days of levofloxacin. She (unknown) (no (unknown) (unknown) the left femoral (units (unknown) date) head has unknown) progressed. (unknown) (no (unknown) (unknown) then working on a (units (unknown) date) daily routine to unknown) have more regular bowel movements and more (unknown) (no (unknown) (unknown) today. Indwelling (units (unknown) date) catheter that does unknown) suggest significant abnormalities. (unknown) (no (unknown) (unknown) tomorrow (units (unkno wn) date) unknown) (unknown) (no (unknown) (unknown) tomorrow to get (units (unknown) date) rid of the large unknown) stool bolus she currently has along with the (unknown) (no (unknown) (unknown) tuberosity. There (units (unknown) date) is diffuse truncal unknown) and lower extremity muscular atrophy. (unknown) (no (unknown) (unknown) urinary tract (units ( unknown) date) infection. She does unknown) not describe headaches, nausea or vomiting. (unknown) (no (unknown) (unknown) using Imodium to (units (unknown) date) prevent this is unknown) making the problems worse. I would recommend (unknown) (no (unknown) (unknown) using a laxative (units (unknown) date) tomorrow to see if unknown) you can completely empty your bowels and (unknown) (no (unknown) (unknown) with wound care. (units (unknown) date) She states that unknown) over the last ?bit of time? seemingly days to Result panel 77 (unknown) (no date) (unknown) (unknown) NO GROWTH (units (unk nown) AFTER 48 unknown) HOURS (unknown) (no date) (unknown) (unknown) (no value) (units (un known) unknown) Result panel 78 (unknown) (no date) (unknown) (unknown) NO GROWTH (units (unk nown) AFTER 48 unknown) HOURS (unknown) (no date) (unknown) (unknown) (no value) (units (un known) unknown) Result panel 79 (unknown) (no date) (unknown) (unknown) (no value) (units (un known) unknown) (unknown) (no date) (unknown) (unknown) NO GROWTH (units (unk nown) AFTER 72 unknown) HOURS Result panel 80 (unknown) (no date) (unknown) (unknown) (no value) (units (un known) unknown) (unknown) (no date) (unknown) (unknown) NO GROWTH (units (unk nown) AFTER 72 unknown) HOURS Result panel 81 (unknown) (no date) (unknown) (unknown) (no value) (units (un known) unknown) (unknown) (no date) (unknown) (unknown) NO GROWTH (units (unk nown) AFTER 4 DAYS unknown) Result panel 82 (unknown) (no date) (unknown) (unknown) (no value) (units (un known) unknown) (unknown) (no date) (unknown) (unknown) NO GROWTH (units (unk nown) AFTER 4 DAYS unknown) Result panel 83 (unknown) (no date) (unknown) (unknown) (no value) (units (un known) unknown) (unknown) (no date) (unknown) (unknown) NO GROWTH (units (unk nown) AFTER 5 DAYS unknown) Result panel 84 (unknown) (no date) (unknown) (unknown) (no value) (units (un known) unknown) (unknown) (no date) (unknown) (unknown) NO GROWTH (units (unk nown) AFTER 5 DAYS unknown) Result panel 85 (unknown) (no date) (unknown) (unknown) (no value) (units (un known) unknown) (unknown) (no date) (unknown) (unknown) No organisms (units ( unknown) seen unknown) (unknown) (no date) (unknown) (unknown) No organisms (units ( unknown) seen unknown) (unknown) (no date) (unknown) (unknown) Occasional WBC (units (unknown) seen unknown) Result panel 86 (unknown) (no date) (unknown) (unknown) (no value) (units (un known) unknown) (unknown) (no date) (unknown) (unknown) No organisms (units ( unknown) seen unknown) (unknown) (no date) (unknown) (unknown) No organisms (units ( unknown) seen unknown) (unknown) (no date) (unknown) (unknown) Occasional WBC (units (unknown) seen unknown) (unknown) (no date) (unknown) (unknown) Test not (units (unkn own) performed unknown) Result panel 87 (unknown) (no date) (unknown) (unknown) (no value) (units (un known) unknown) (unknown) (no date) (unknown) (unknown) No organisms (units ( unknown) seen unknown) (unknown) (no date) (unknown) (unknown) No organisms (units ( unknown) seen unknown) (unknown) (no date) (unknown) (unknown) Occasional WBC (units (unknown) seen unknown) (unknown) (no date) (unknown) (unknown) Test not (units (unkn own) performed unknown) (unknown) (no date) (unknown) (unknown) Very Early (units (un known) Growth: Culture unknown) too young for work-up reincubated Result panel 88 (unknown) (no (unknown) (unknown) (no value) (units (unk nown) date) unknown) (unknown) (no (unknown) (unknown) GPBGram positive (units (unknown) date) bacilli unknown) (unknown) (no (unknown) (unknown) GPCGram positive (units (unknown) date) cocci unknown) (unknown) (no (unknown) (unknown) Identification (units (unknown) date) and Sensitivity unknown) to Follow (unknown) (no (unknown) (unknown) Identification (units (unknown) date) to follow unknown) (unknown) (no (unknown) (unknown) LIGHT (units (unkno wn) date) unknown) (unknown) (no (unknown) (unknown) No organisms (units (u nknown) date) seen unknown) (unknown) (no (unknown) (unknown) No organisms (units (u nknown) date) seen unknown) (unknown) (no (unknown) (unknown) Occasional WBC (units (unknown) date) seen unknown) (unknown) (no (unknown) (unknown) SCANT (units (unkno wn) date) unknown) (unknown) (no (unknown) (unknown) Test not (units (unkno wn) date) performed unknown) Result panel 89 (unknown) (no (unknown) (unknown) (no value) (units (unk nown) date) unknown) (unknown) (no (unknown) (unknown) GPBGram positive (units (unknown) date) bacilli unknown) (unknown) (no (unknown) (unknown) GPCGram positive (units (unknown) date) cocci unknown) (unknown) (no (unknown) (unknown) Identification (units (unknown) date) and Sensitivity unknown) to Follow (unknown) (no (unknown) (unknown) Identification (units (unknown) date) to follow unknown) (unknown) (no (unknown) (unknown) LIGHT (units (unkno wn) date) unknown) (unknown) (no (unknown) (unknown) No organisms (units (u nknown) date) seen unknown) (unknown) (no (unknown) (unknown) No organisms (units (u nknown) date) seen unknown) (unknown) (no (unknown) (unknown) Occasional WBC (units (unknown) date) seen unknown) (unknown) (no (unknown) (unknown) SCANT (units (unkno wn) date) unknown) (unknown) (no (unknown) (unknown) Test not (units (unkno wn) date) performed unknown) Result panel 90 (unknown) (no (unknown) (unknown) (no value) (units (unk nown) date) unknown) (unknown) (no (unknown) (unknown) >=16 (units (unkno wn) date) unknown) (unknown) (no (unknown) (unknown) >=4 (units (unkno wn) date) unknown) (unknown) (no (unknown) (unknown) >=8 (units (unkno wn) date) unknown) (unknown) (no (unknown) (unknown) <=0.25 (units (unkno wn) date) unknown) (unknown) (no (unknown) (unknown) <=0.5 (units (unkno wn) date) unknown) (unknown) (no (unknown) (unknown) <=1 (units (unkno wn) date) unknown) (unknown) (no (unknown) (unknown) <=10 (units (unkno wn) date) unknown) (unknown) (no (unknown) (unknown) 0.25 (units (unkno wn) date) unknown) (unknown) (no (unknown) (unknown) 0.5 (units (unkno wn) date) unknown) (unknown) (no (unknown) (unknown) 1 (units (unkno wn) date) unknown) (unknown) (no (unknown) (unknown) 160 (units (unkno wn) date) unknown) (unknown) (no (unknown) (unknown) 2 (units (unkno wn) date) unknown) (unknown) (no (unknown) (unknown) 4 (units (unkno wn) date) unknown) (unknown) (no (unknown) (unknown) CORSTRCorynebacterium (un its (unknown) date) striatum unknown) (unknown) (no (unknown) (unknown) Further Workup Upon (unit s (unknown) date) Request unknown) (unknown) (no (unknown) (unknown) LUZ WC (units (unkno wn) date) unknown) (unknown) (no (unknown) (unknown) LIGHT (units (unkno wn) date) unknown) (unknown) (no (unknown) (unknown) MRSAMethicillin Resis (un its (unknown) date) Staph Aureus unknown) (unknown) (no (unknown) (unknown) No Further Workup (units (unknown) date) unknown) (unknown) (no (unknown) (unknown) No organisms seen (units (unknown) date) unknown) (unknown) (no (unknown) (unknown) No organisms seen (units (unknown) date) unknown) (unknown) (no (unknown) (unknown) Occasional WBC seen (unit s (unknown) date) unknown) (unknown) (no (unknown) (unknown) SCANT (units (unkno wn) date) unknown) (unknown) (no (unknown) (unknown) STAEPIStaphylococcus (uni ts (unknown) date) epidermidis unknown) (unknown) (no (unknown) (unknown) Test not performed (units (unknown) date) unknown) (unknown) (no (unknown) (unknown) YES (units (unkno wn) date) unknown) Social History date description facility (no date) Current some day smoker [facility] l Vital Signs date measurement value units [id number]+0000 BMI BMI 20.8 kg/m2 85850041043157+0000 height_metric height_metric 170.18 cm 16527077137952+0000 height_standard height_standard 67 in 12900399995923+0000 temperature_metric temperature_metric 36.56 C 59243811495581+0000 temperature_standard temperature_standard 9 7.8 F 54125184175291+0000 weight_metric weight_metric 60.32 kg 13642668094600+0000 weight_standard weight_standard 132.98 lb 32758621525921+0000 BP_diastolic BP_diastolic 82 mm[H g] 28985248771269+0000 BP_systolic BP_systolic 176 mm[Hg] 93757719700771+0000 heart_rate heart_rate 71 /min 02746758795714+0000 respiration_rate respiration_rate 16 /min 16807637355414+0000 BMI BMI 21.1 kg/m2 09649391025802+0000 BP_diastolic BP_diastolic 81 mm[H g] 41226265613914+0000 BP_systolic BP_systolic 167 mm[Hg] 11433062710461+0000 heart_rate heart_rate 80 /min 81017560881331+0000 height_metric height_metric 170.18 cm 19404283588229+0000 height_standard height_standard 67 in 55769696998419+0000 respiration_rate respiration_rate 18 /min 64534179131876+0000 temperature_metric temperature_metric 36.94 C 96492005423523+0000 temperature_standard temperature_standard 9 8.5 F 96934155481921+0000 weight_metric weight_metric 27.78 kg 49606444235550+0000 weight_standard weight_standard 61.23 lb 09793330626555+0000 BMI BMI 20.7 kg/m2 06868242340761+0000 BP_diastolic BP_diastolic 70 mm[H g] 84624006188109+0000 BP_systolic BP_systolic 141 mm[Hg] 62902526587736+0000 heart_rate heart_rate 89 /min 73413077385707+0000 height_metric height_metric 170.18 cm 79488070096919+0000 height_standard height_standard 67 in 80606673860211+0000 respiration_rate respiration_rate 18 /min 60254605567866+0000 temperature_metric temperature_metric 36.61 C 85502517722803+0000 temperature_standard temperature_standard 9 7.9 F 71834747901802+0000 weight_metric weight_metric 27.22 kg 08060655017370+0000 weight_standard weight_standard 60 lb
--- NOTE | 2022-01-27 11:08 | CT Report ---
PROCEDURE: Abdomen/Pelvis WO INDICATIONS: lower abd pain, vomiting, diarrhea 2 days TECHNIQUE: Noncontrast 5 mm thick sections acquired from the diaphragms to the symphysis. 5 mm coronal and sagi ttal reformats were then performed. For radiation dose reduction, the following was used: automated exposure control, adjustment of mA and/or kV according to patient size. COMPARISON: 01/19/2022 FINDINGS: Image quality: There is artifact associated with the metallic hardware. ABDOMEN: Lung bases: Lung bases are clear. Heart size is normal. Solid organs: Liver and spleen are normal in size. Gallbladder demonstrates gallstones within its l umen Pancreas is normal in contours. No adrenal nodules. Kidneys are normal in size, without hydro nephrosis or nephrolithiasis. Peritoneum and bowel: Unenhanced bowel loops demonstrate normal wall thickness and caliber. No free fluid or air. Nodes and vessels: No retroperitoneal or mesenteric adenopathy by size criteria. Aorta and inferior vena cava are normal in caliber. Miscellaneous: No ventral hernias. PELVIS: Genitourinary: A posteriorly inserted bladder catheter seen, which decompresses the bladder, as befor e. Calcified uterine fibroids are seen. Miscellaneous: No inguinal hernias or adenopathy. Extensive inflammatory change and soft tissue irr egularity can be seen involving the posterior perineum. Bones: Bilateral hip joint effusions can be seen. No suspicious bony lesions. No vertebral body com pression fractures. Extensive spinal fixation hardware is seen. A lower lumbar spine bone graft can b e seen IMPRESSION: No imaging explanation is found for the patient's presenting symptoms. Extensive posterior peroneal inflammatory change and soft tissue irregularity, which is attributed to chronic decubitus ulcers. Bilateral hip joint effusions can be seen, which may reflect involvement of the inflammatory change f rom the decubitus ulcers. This is similar to the prior examination. Incidental note is made of: Gallstones Extensive spinal fixation hardware, with a bone graft Calcified uterine fibroids Bladder catheter Reviewed by: Rob Rosales MD on 01/27/2022 10:07 AM JANELLE Approved by: Rob Rosales MD on 01/27/2022 10:07 AM JANELLE Station ID: [id number]
[2022-01-27] MEDS ORDERED: SACCHAROMYCES BOULARDII 250 MG CAPSULE PO STA (11:10)
[2022-01-27 11:12] LABS: BASOPHILS % (AUTO) 0.3 %; EOSINOPHILS # (AUTO) 0.2 10^3/uL (0.0-0.7); EOSINOPHILS % (AUTO) 2.6 %; HCT - HEMATOCRIT 36.1 % (37.0-47.0); HGB - HEMOGLOBIN 11.3 g/dL (12.0-16.0); LYMPHOCYTES # (AUTO) 1.3 10^3/uL (1.5-3.5); LYMPHOCYTES % (AUTO) 20.7 %; MEAN CORPUSCULAR HEMOGLOBIN 28.3 pg (27.0-31.0); MEAN CORPUSCULAR HGB CONC 31.3 g/dL (32.0-36.0); MEAN CORPUSCULAR VOLUME 90.5 fL (81.0-99.0); MEAN PLATELET VOLUME 11.2 fL (7.9-10.8); MONOCYTES # (AUTO) 0.5 10^3/uL (0.0-1.0); NEUTROPHILS # (AUTO) 4.5 10^3/uL (1.5-6.6); NEUTROPHILS % (AUTO) 69.2 %; PLT - PLATELET COUNT 165 10^3/uL (130-450); RED BLOOD COUNT 3.99 10^6/uL (4.20-5.40); RED CELL DISTRIBUTION WIDTH 13.7 % (12.0-15.0); WHITE BLOOD COUNT 6.4 x10^3/uL (4.8-10.8)
[2022-01-27 11:26] LABS: ALBUMIN 3.7 g/dL (3.2-5.5); BILIRUBIN,TOTAL 0.8 mg/dL (0.2-1.0); CALCIUM 9.1 mg/dL (8.5-10.3); CREATININE 0.4 mg/dL (0.4-1.0); POTASSIUM 2.9 mmol/L (3.5-5.0); TOTAL PROTEIN 7.3 g/dL (6.7-8.2)
[2022-01-27] MEDS ORDERED: POTASSIUM CHLOR 10 MEQ/100 ML 10 MEQ/100 ML BAG IV STA (11:40)
[2022-01-27] MEDS ORDERED: POTASSIUM CHLORIDE 10 MEQ CAPSULE PO STA (11:40)
[2022-01-27] MEDS ORDERED: KETOROLAC 15 MG/ML VIAL IVP STA (11:40)
[2022-01-27] MEDS ORDERED: DIPHENOX/ATROPINE 2.5/0.025 MG TABLET PO STA (11:50)
[2022-01-27] MEDS ORDERED: HYDROmorphone 0.5 MG/0.5 ML SYRINGE IVP STA (11:50)
[2022-01-27 14:20] VITALS: BP 146/66
== END 2022-01-27 15:40 | disposition home or self-care (01) ==
LOC: EDUNIT# → ED 10:14
DX: K52.1 Toxic gastroenteritis and colitis (principal); T36.95XA Adverse effect of unspecified systemic antibiotic, initial encounter; R10.9 Unspecified abdominal pain; R11.0 Nausea; R53.1 Weakness; E87.6 Hypokalemia; Z66 Do not resuscitate
CPT/HCPCS: 36415; 74176; 80053; 83605; 83690; 83735; 85025; 96361; 96365; 96366; 96375; 99284; 99285; A9270; J1170

== ENCOUNTER 2022-08-24 17:10 | Outpatient (CLI) | payer MEDICARE, MEDICAID | END 2022-08-24 23:59 | disposition critical access hospital (66) | LOC: EMS 17:10 | DX: R11.2 Nausea with vomiting, unspecified (principal); R19.7 Diarrhea, unspecified; R10.84 Generalized abdominal pain; Z74.09 Other reduced mobility | CPT/HCPCS: A0425; A0429 ==

== ENCOUNTER 2022-08-24 17:37 | Inpatient (IN) | payer MEDICARE, MEDICAID ==
[2022-08-24] MEDS ORDERED: ONDANSETRON 4 MG/2 ML VIAL IVP STA ×2 (17:49→20:05)
[2022-08-24] MEDS ORDERED: SODIUM CHLORIDE 0.9% 1,000 ML IV STA (17:49)
[2022-08-24] MEDS ORDERED: HYDROmorphone 1 MG/ML CARPUJECT IVP STA (17:49)
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
[2022-08-24 18:27] LABS: BASOPHILS % (AUTO) 0.2 %; EOSINOPHILS % (AUTO) 0.1 %; HCT - HEMATOCRIT 40.5 % (37.0-47.0); HGB - HEMOGLOBIN 12.4 g/dL (12.0-16.0); LYMPHOCYTES # (AUTO) 0.5 10^3/uL (1.5-3.5); LYMPHOCYTES % (AUTO) 4.1 %; MEAN CORPUSCULAR HEMOGLOBIN 27.4 pg (27.0-31.0); MEAN CORPUSCULAR HGB CONC 30.6 g/dL (32.0-36.0); MEAN CORPUSCULAR VOLUME 89.4 fL (81.0-99.0); MEAN PLATELET VOLUME 10.5 fL (7.9-10.8); MONOCYTES # (AUTO) 0.8 10^3/uL (0.0-1.0); MONOCYTES % (AUTO) 6.1 %; NEUTROPHILS % (AUTO) 89.1 %; PLT - PLATELET COUNT 187 10^3/uL (130-450); RED BLOOD COUNT 4.53 10^6/uL (4.20-5.40); RED CELL DISTRIBUTION WIDTH 14.8 % (12.0-15.0); WHITE BLOOD COUNT 12.4 x10^3/uL (4.8-10.8)
[2022-08-24 18:32] LABS: ALBUMIN 3.6 g/dL (3.2-5.5); ALBUMIN/GLOBULIN RATIO 0.9 (1.0-2.2); BILIRUBIN,TOTAL 0.5 mg/dL (0.2-1.0); CALCIUM 8.8 mg/dL (8.5-10.3); CREATININE 0.4 mg/dL (0.4-1.0); MAGNESIUM 2.1 mg/dL (1.7-2.8); POTASSIUM 3.9 mmol/L (3.5-5.0); TOTAL PROTEIN 7.7 g/dL (6.7-8.2)
[2022-08-24] MEDS ORDERED: iohexoL-300 100 ML VIAL ONE (18:39)
[2022-08-24] MEDS ORDERED: iohexoL-300 100 ML VIAL IVP ONE (19:09)
[2022-08-24 19:36] LABS: BILIRUBIN,URINE NEGATIVE (NEGATIVE); GLUCOSE, URINE (UA) NEGATIVE (NEGATIVE); KETONES,URINE (UA) 15 mg/dL (NEGATIVE); LEUKOCYTE ESTERASE, URINE MODERATE (NEGATIVE); NITRITE,URINE POSITIVE (NEGATIVE); OCCULT BLOOD,URINE LARGE (NEGATIVE); PH,URINE 6.5 PH (5.0-7.5); PROTEIN,URINE 30 mg/dL (NEGATIVE); UROBILINOGEN,URINE 0.2 (NORMAL) E.U./dL (NORMAL)
[2022-08-24 19:38] LABS: CLARITY,URINE CLOUDY (CLEAR)
[2022-08-24 19:47] LABS: AMORPHOUS SEDIMENT,UR Few /LPF; BACTERIA,URINE Many /HPF (None Seen); SQUAMOUS EPITHELIAL CELL,UR FEW Squamous (<= Few); WBC,URINE >25 /HPF (0-5)
--- NOTE | 2022-08-24 19:56 | CT Report ---
PROCEDURE: ABDOMEN/PELVIS W INDICATIONS: abd pain CONTRAST: 100ML OMNI 300 TECHNIQUE: 5 mm thick sections acquired from the diaphragms to the symphysis. 5 mm thick coronal and sagittal r eformats were acquired. For radiation dose reduction, the following was used: automated exposure co ntrol, adjustment of mA and/or kV according to patient size. COMPARISON: 01/27/2022 FINDINGS: Image quality: Diagnostic. Lung bases and heart: Bibasilar atelectasis. Heart size is normal. Coronary artery atherosclerosis. Liver: Unremarkable. Gallbladder and biliary tree: Cholelithiasis. No CT evidence for acute cholecystitis. Spleen: Unremarkable. Pancreas: Unremarkable. Adrenals: Unremarkable. Kidneys and ureters: No hydronephrosis. No perinephric stranding. No evidence for renal stones. Bowel and peritoneum: No bowel distension. No pathologic free fluid. Visualized appendix appears with in normal limits. Lymph nodes: No central or retroperitoneal adenopathy. Vessels: Moderate atherosclerotic calcifications without aneurysmal dilatation.. PELVIS Genitourinary: Stephens catheter decompresses the urinary bladder. Small amount of air likely from place ment of Stephens catheter. Minimal thickening of the urinary bladder wall, likely chronic. Coarse calcif ications in the lower pelvis likely representing calcified uterine fibroids. Lymph nodes: Unremarkable. Bones: No suspicious osseous lesions. Persistent posteriorly dislocated left femoral head with associ ated joint effusion. This is not changed. Degenerative changes of the right hip with small amount of right hip joint effusion. This is also not significantly changed. Stable postsurgical changes of exte nsive thoracolumbar spinal fusion. No acute fracture or gross hardware abnormalities identified. Other: Redemonstration of extensive subcutaneous soft tissue inflammatory changes involving the poste rior perineum and buttocks region, again felt to be secondary to chronic decubitus ulcers. Findings a re similar to prior examination. IMPRESSION: 1. Stable CT evaluation of the abdomen and pelvis without abnormalities to explain patient's abdomina l pain. 2. Extensive posterior perineal and soft tissue changes which is again thought to represent chronic d ecubitus ulcers. No significant interval change. 3. Stephens catheter decompresses the urinary bladder with likely chronic urinary bladder wall thickenin g. Recommend correlation with laboratory evaluation. 4. Persistent degenerative changes of the bilateral hips with persistent posteriorly dislocated left femoral head and the surrounding joint effusion. Other chronic findings as above. Reviewed by: Elia Grant MD on 08/24/2022 7:55 PM PDT Approved by: Elia Grant MD on 08/24/2022 7:55 PM PDT Station ID: [id number]
[2022-08-24] MEDS ORDERED: cefTRIAXone 1 GM VIAL IVP STA (19:59)
[2022-08-24] MEDS ORDERED: METOCLOPRAMIDE 10 MG/2 ML VIAL IVP STA (20:30)
[2022-08-24] MEDS ORDERED: DEXTROSE 5%-LACTATED RINGERS 1,000 ML IV SCH (21:00)
[2022-08-24] MEDS ORDERED: HYDROmorphone 2 MG/ML VIAL IVP STA (21:09)
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
[2022-08-24] MEDS: levETIRAcetam 250 MG TABLET PO SCH (21:45)
[2022-08-24] MEDS: SODIUM CHLORIDE 0.9% 1,000 ML IV SCH (22:53)
[2022-08-24] MEDS: metroNIDAZOLE 500 MG/100 ML 500 MG/100 ML BAG IV SCH (23:06)
[2022-08-24] MEDS: ONDANSETRON 4 MG/2 ML VIAL IVP PRN (23:07)
[2022-08-24] MEDS: MORPHINE 2 MG/ML CARPUJECT IVP PRN (23:07)
[2022-08-25] MEDS: MORPHINE 2 MG/ML CARPUJECT IVP PRN ×3 (00:27→05:12)
[2022-08-25] MEDS: SODIUM CHLORIDE FLUSH 0.9% 10 ML SYRINGE IVP SCH ×3 (00:27→20:01)
[2022-08-25] MEDS ORDERED: diphenhydrAMINE INJ 50 MG/ML VIAL IVP STA (02:43)
[2022-08-25] MEDS ORDERED: FAMOTIDINE 20 MG/2 ML VIAL IVP STA (02:44)
--- NOTE | 2022-08-25 02:45 | PROVIDER PROGRESS NOTE ---
Pillow Agent Note - Pillow Agent Note Pillow Agent Note: Consult Information Member Facility: [facility] Facility Requesting Clinician: Ariana Farfan Patient Name: Karina Diallo Date of : 1955 Gender: Female Reason for Consult Reason for Consult: Other non-Emergent Clinical Note Clinical Note: per rn - "Patient C/O itching. Reddened cheeks observed. Patient is receiving morphine IV, states remembering having itching with morphine in the past. May I have an order for IV benadryl, please." benadryl 25 mg iv x 1 pepcid 20 mg iv x 1
[2022-08-25 05:10] LABS: BASOPHILS % (AUTO) 0.3 %; EOSINOPHILS % (AUTO) 0.4 %; HCT - HEMATOCRIT 31.6 % (37.0-47.0); HGB - HEMOGLOBIN 9.6 g/dL (12.0-16.0); LYMPHOCYTES # (AUTO) 1.8 10^3/uL (1.5-3.5); LYMPHOCYTES % (AUTO) 22.1 %; MEAN CORPUSCULAR HEMOGLOBIN 27.6 pg (27.0-31.0); MEAN CORPUSCULAR HGB CONC 30.4 g/dL (32.0-36.0); MEAN CORPUSCULAR VOLUME 90.8 fL (81.0-99.0); MEAN PLATELET VOLUME 10.7 fL (7.9-10.8); MONOCYTES # (AUTO) 0.5 10^3/uL (0.0-1.0); MONOCYTES % (AUTO) 6.6 %; NEUTROPHILS # (AUTO) 5.6 10^3/uL (1.5-6.6); NEUTROPHILS % (AUTO) 70.2 %; PLT - PLATELET COUNT 151 10^3/uL (130-450); RED BLOOD COUNT 3.48 10^6/uL (4.20-5.40); RED CELL DISTRIBUTION WIDTH 14.8 % (12.0-15.0); WHITE BLOOD COUNT 7.9 x10^3/uL (4.8-10.8)
[2022-08-25] MEDS: metroNIDAZOLE 500 MG/100 ML 500 MG/100 ML BAG IV SCH ×3 (05:13→21:42)
[2022-08-25 05:33] LABS: CREATININE 0.4 mg/dL (0.4-1.0); POTASSIUM 3.3 mmol/L (3.5-5.0)
[2022-08-25] MEDS: cefTRIAXone 1 GM in SODIUM CHLORIDE 0.9% MINIBAG 100 ML IV SCH (08:47)
[2022-08-25] MEDS: HYDROcod/ACETAM 5/325 MG TABLET PO PRN ×3 (10:52→20:00)
[2022-08-25] MEDS: levETIRAcetam 250 MG TABLET PO SCH ×2 (10:52→21:42)
--- NOTE | 2022-08-25 11:19 | PHARMACY PROGRESS NOTE ---
- Best Possible Medication History Admit Date and Time: 08/24/222110 Processed by: Pharmacy Medication History completed: Yes Patient Interview: Completed Secondary Source(s): Prescription bottles, Pharmacy records, Insurance records As the person ultimately responsible for medication therapy, providers are able to order a medication from an existing home medication list in [facility] via the "Reconcile Routine" prior to Confirmation of that medication by marketing support coordinator. Such practice is discouraged except when the physician, in their clinical judgment, deems that a medical need exists for a medication without regard to previous use.
[2022-08-25] MEDS: SODIUM CHLORIDE 0.9% 1,000 ML IV SCH (13:45)
[2022-08-25] MEDS ORDERED: ASPIRIN 325 MG TABLET PO PRN (15:41)
[2022-08-25] MEDS ORDERED: SOLIFENACIN SUCCINATE 5 MG TABLET PO PRN (15:46)
--- NOTE | 2022-08-25 16:19 | PROVIDER PROGRESS NOTE ---
Assessment/Plan - Problem List (1) Gastroenteritis Assessment/Plan: She presented with abd pain, nausea, vomiting, diarrhea. She has been started on iv fluids, clear liquid diet, iv antiemetics, and iv pain meds. This morning she was not nauseated, was hungry and requested to try to advance her diet. She still continues to have abdominal pain.She does not have peritoneal signs on exam however. I suspect this is still abdominal discomfort related to the diarrhea and recent vomiting. Plan: Continue with IV fluids, IV antiemetics as needed, IV pain meds Continue at the present diet order which is pured diet with thin liquids She is not yet ready for discharge until she is able to take in better oral nutrition, hopefully by tomorrow (2) Dehydration The patient still has a dry oral mucosa, still has evidence of clinical dehydration. Plan: Continue with IV fluids for hydration as we slowly advance her diet (3) Hypokalemia This is likely related to potassium losses in her vomiting and her diarrhea Plan: We will replace with IV riders and put oral potassium if she can tolerate that (4) UTI She has had prior UTIs because of the chronic indwelling Ramirez. She was started on empiric IV ceftriaxone Blood culture and urine culture results are still pending Labs were all reviewed. Her WBC has decreased from 12.4 to 7.9 today. Plan: Continue with IV antibiotics Await culture results to tailor antibiotic (5) Chronic indewelling ramirez catheter As per Hx (6) Decubitus ulcer As per history. Present at admission, on her sacrum. Images were taken Plan: Topical care by nursing Rolling and offloading will be ordered (6) Paraplegia As per history. Plan: We will order any medications for spastic pain if she is on them at home, when her medication list is reconciled by pharmacy. When she is ready for discharge we will order resumption of her home health care company's caregiving at her house (7) Seizure disorder She was on Keppra at home. The pharmacist today, Ramon, spoke to me and said that it appears that the patient has not refilled her Keppra prescription for many months Plan: In order to prevent a seizure we will continue with the current Keppra dose (which was listed as one of her old medications), since possibly she is getting antiseizure medications from somewhere else which our pharmacy is not aware of. - Current Meds Current Meds: Current Medications Generic Name Dose Route Start Last Admin Trade Name Aida PRN Reason Stop Dose Admin Hydrocodone Bitart/Acetaminophen 1 tab 08/25/22 10:41 08/25/22 16:03 Hydrocod/Acetam 5/325 Mg Tablet PO 1 tab Q4HR PRN Administration Pain 8-10 Sodium Chloride 1,000 mls @ 100 mls/hr 08/24/22 22:00 08/25/22 14:51 Normal Saline 0.9% IV 100 mls/hr .Q10H VANE Infusion Ceftriaxone Sodium 1 gm/ 100 mls @ 200 mls/hr 08/25/22 09:00 08/25/22 10:08 Sodium Chloride IV Infused DAILY VANE Infusion Metronidazole 500 mg in 100 mls @ 100 mls/hr 08/24/22 22:00 08/25/22 14:51 Flagyl 500 Mg/100 Ml IV Infused Q8H VANE Infusion Levetiracetam 500 mg 08/24/22 22:00 08/25/22 10:52 Levetiracetam 250 Mg Tablet PO 500 mg Q12H VANE Administration Ondansetron HCl 4 mg 08/24/22 21:10 08/24/22 23:07 Ondansetron 4 Mg/2 Ml Vial IVP 4 mg Q6HR PRN Administration Nausea / Vomiting Sodium Chloride 10 ml 08/25/22 01:00 08/25/22 08:46 Sodium Chloride Flush 0.9% 10 Ml Syringe IVP 10 ml 0100,0900,1700 VANE Administration - Lab Result Fish Bone Diagrams: 08/28/22 08:25 08/28/22 08:25 - Additional Planning My Orders: My Active Orders 08/25/22 10:41 HYDROcod/ACETAM 5/325 [[place] 5/325] 1 tab PO Q4HR PRN 08/25/22 Lunch DIET [Dysphagia - Puree] [DIET] 08/25/22 15:41 Aspirin [Alonzo] 325 mg PO Q4H PRN traMADol [Ultram] 50 mg PO QID PRN 08/25/22 15:46 Solifenacin Succinate [Vesicare] 5 mg PO DAILY PRN Subjective - Subjective Patient Reports: Feeling Better (Still has "jabs" of abdominal pain and is tender to touch but is no longer nauseated. She tolerated clear liquids and is hungry and asking for advancing her diet) Objective Vital Signs: Vital Signs - 24 hr 08/24/22 08/24/22 08/24/22 17:44 19:55 22:05 Temperature 37.1 C 37.1 C 36.8 C Heart Rate 80 69 Heart Rate [ 75 Brachial] Respiratory 16 18 18 Rate Blood Pressure 142/79 H 145/77 H Blood Pressure 155/76 H [Right Brachial artery] O2 Saturation 95 100 98 08/25/22 08/25/22 08/25/22 04:57 08:00 16:00 Temperature 36.6 C 36.5 C 36.7 C Heart Rate Heart Rate [ 61 60 66 Brachial] Respiratory 18 18 16 Rate Blood Pressure Blood Pressure 121/60 114/55 L 122/54 L [Right Brachial artery] O2 Saturation 99 100 98 Oxygen O2 Source Room air I&O (Last 24 Hrs): Intake and Output Totals x24h 08/23/22 08/24/22 08/25/22 23:59 23:59 23:59 Intake Total 5699.553 5795.667 Output Total 325 1250 Balance 1099.667 531.667 General: Alert, Oriented x3 HEENT: EOMI, Other (Dry mucosa) Neck: Supple, No JVD Neuro: Alert, Other (Paraplegia from approximately the waist down) Cardiovascular: Regular rate, No murmurs Respiratory: No respiratory distress, Breath sounds nml Abdomen: Normal bowel sounds, Soft, Other (Mildly tender to moderate palpation, no guarding or rebound) - Results Results: Laboratory Results WBC 7.9 x10^3/uL (4.8-10.8) 08/25/22 04:53 RBC 3.48 10^6/uL (4.20-5.40) L 08/25/22 04:53 Hgb 9.6 g/dL (12.0-16.0) L 08/25/22 04:53 Hct 31.6 % (37.0-47.0) L 08/25/22 04:53 MCV 90.8 fL (81.0-99.0) 08/25/22 04:53 MCH 27.6 pg (27.0-31.0) 08/25/22 04:53 MCHC 30.4 g/dL (32.0-36.0) L 08/25/22 04:53 RDW 14.8 % (12.0-15.0) 08/25/22 04:53 Plt Count 151 10^3/uL (130-450) 08/25/22 04:53 MPV 10.7 fL (7.9-10.8) 08/25/22 04:53 Neut # (Auto) 5.6 10^3/uL (1.5-6.6) 08/25/22 04:53 Lymph # (Auto) 1.8 10^3/uL (1.5-3.5) 08/25/22 04:53 [place] # (Auto) 0.5 10^3/uL (0.0-1.0) 08/25/22 04:53 Eos # (Auto) 0.0 10^3/uL (0.0-0.7) 08/25/22 04:53 Baso # (Auto) 0.0 10^3/uL (0.0-0.1) 08/25/22 04:53 Absolute Nucleated RBC 0.00 x10^3/uL 08/25/22 04:53 Nucleated RBC % 0.0 /100WBC 08/25/22 04:53 Sodium 139 mmol/L (135-145) 08/25/22 04:53 Potassium 3.3 mmol/L (3.5-5.0) L 08/25/22 04:53 Chloride 105 mmol/L (101-111) 08/25/22 04:53 Carbon Dioxide 30 mmol/L (21-32) 08/25/22 04:53 Anion Gap 4.0 (6-13) L 08/25/22 04:53 BUN 10 mg/dL (6-20) 08/25/22 04:53 Creatinine 0.4 mg/dL (0.4-1.0) 08/25/22 04:53 Estimated GFR (MDRD) 160 (>89) 08/25/22 04:53 Glucose 79 mg/dL (70-100) 08/25/22 04:53 Calcium 8.0 mg/dL (8.5-10.3) L 08/25/22 04:53 Magnesium 1.9 mg/dL (1.7-2.8) 08/25/22 04:53 Total Bilirubin 0.5 mg/dL (0.2-1.0) 08/24/22 18:03 AST 40 IU/L (10-42) 08/24/22 18:03 ALT 34 IU/L (10-60) 08/24/22 18:03 Alkaline Phosphatase 110 IU/L (42-121) 08/24/22 18:03 Total Protein 7.7 g/dL (6.7-8.2) 08/24/22 18:03 Albumin 3.6 g/dL (3.2-5.5) 08/24/22 18:03 Globulin 4.1 g/dL (2.1-4.2) 08/24/22 18:03 Albumin/Globulin Ratio 0.9 (1.0-2.2) L 08/24/22 18:03 Lipase 41 U/L (22-51) 08/24/22 18:03 Urine Color DARK YELLOW 08/24/22 19:20 Urine Clarity CLOUDY (CLEAR) 08/24/22 19:20 Urine pH 6.5 PH (5.0-7.5) 08/24/22 19:20 Ur Specific [place] 1.015 (1.002-1.030) 08/24/22 19:20 Urine Protein 30 mg/dL (NEGATIVE) H 08/24/22 19:20 Urine Glucose (UA) NEGATIVE mg/dL (NEGATIVE) 08/24/22 19:20 Urine Ketones 15 mg/dL (NEGATIVE) H 08/24/22 19:20 Urine Occult Blood LARGE (NEGATIVE) H 08/24/22 19:20 Urine Nitrite POSITIVE (NEGATIVE) H 08/24/22 19:20 Urine Bilirubin NEGATIVE (NEGATIVE) 08/24/22 19:20 Urine Urobilinogen 0.2 (NORMAL) E.U./dL (NORMAL) 08/24/22 19:20 Ur Leukocyte Esterase MODERATE (NEGATIVE) H 08/24/22 19:20 Urine RBC 11-25 /HPF (0-5) H 08/24/22 19:20 Urine WBC >25 /HPF (0-5) H 08/24/22 19:20 Ur Squamous Epith Cells FEW Squamous (<= Few) 08/24/22 19:20 Amorphous Sediment Few /LPF 08/24/22 19:20 Urine Bacteria Many /HPF (None Seen) H 04/21/23 19:20 Ur Microscopic Review INDICATED 08/24/22 19:20 Urine Culture Comments INDICATED 08/24/22 19:20 - Procedures Procedures: Procedures DRAINAGE OF VAGINA WITH DRAINAGE DEVICE, VIA OPENING (04/19/20) EXCISION OF LEFT FOOT MUSCLE, OPEN APPROACH (04/19/20) EXCISION OF PERINEUM SUBCU/FASCIA, OPEN APPROACH (04/19/20) EXCISION OF RIGHT TARSAL, OPEN APPROACH (04/19/20) EXCISION OF VAGINA, VIA NATURAL OR ARTIFICIAL OPENING, DIAGN (04/19/20) EXTRACTION OF BUTTOCK SKIN, EXTERNAL APPROACH (02/18/19) EXTRACTION OF L UP LEG SUBCU/FASCIA, PERC APPROACH (02/18/19) EXTRACTION OF LEFT FOOT SKIN, EXTERNAL APPROACH (02/18/19) EXTRACTION OF RIGHT FOOT SKIN, EXTERNAL APPROACH (02/18/19) INSERTION OF INFUSION DEV INTO SUP VENA CAVA, PERC APPROACH (02/18/19) INSERTION OF INFUSION DEVICE INTO UPPER VEIN, PERC APPROACH (04/19/20) INSPECTION OF LOWER INTESTINAL TRACT, ENDO (04/19/20) TRANSFUSE NONAUT RED BLOOD CELLS IN PERIPH VEIN, PERC (04/19/20)
[2022-08-25] MEDS: traMADol 50 MG TABLET PO PRN (21:04)
[2022-08-26] MEDS: ONDANSETRON 4 MG/2 ML VIAL IVP PRN ×3 (00:09→18:30)
[2022-08-26] MEDS: HYDROcod/ACETAM 5/325 MG TABLET PO PRN (00:09)
[2022-08-26] MEDS: SODIUM CHLORIDE FLUSH 0.9% 10 ML SYRINGE IVP SCH ×3 (00:15→15:35)
[2022-08-26] MEDS: SODIUM CHLORIDE 0.9% 1,000 ML IV SCH ×3 (01:33→22:54)
[2022-08-26] MEDS: metroNIDAZOLE 500 MG/100 ML 500 MG/100 ML BAG IV SCH (05:15)
[2022-08-26] MEDS: traMADol 50 MG TABLET PO PRN (05:26)
[2022-08-26] MEDS: PROCHLORPERAZINE 10 MG/2 ML VIAL IVP PRN (08:28)
[2022-08-26] MEDS: FAMOTIDINE 20 MG/2 ML VIAL IVP SCH ×2 (08:28→21:04)
[2022-08-26] MEDS: cefTRIAXone 1 GM in SODIUM CHLORIDE 0.9% MINIBAG 100 ML IV SCH (08:30)
[2022-08-26 09:11] LABS: BASOPHILS % (AUTO) 0.3 %; EOSINOPHILS # (AUTO) 0.1 10^3/uL (0.0-0.7); EOSINOPHILS % (AUTO) 1.2 %; HCT - HEMATOCRIT 36.9 % (37.0-47.0); HGB - HEMOGLOBIN 11.3 g/dL (12.0-16.0); LYMPHOCYTES # (AUTO) 0.9 10^3/uL (1.5-3.5); LYMPHOCYTES % (AUTO) 14.7 %; MEAN CORPUSCULAR HEMOGLOBIN 27.7 pg (27.0-31.0); MEAN CORPUSCULAR HGB CONC 30.6 g/dL (32.0-36.0); MEAN CORPUSCULAR VOLUME 90.4 fL (81.0-99.0); MEAN PLATELET VOLUME 11.2 fL (7.9-10.8); MONOCYTES # (AUTO) 0.3 10^3/uL (0.0-1.0); MONOCYTES % (AUTO) 5.5 %; NEUTROPHILS # (AUTO) 4.7 10^3/uL (1.5-6.6); NEUTROPHILS % (AUTO) 78.1 %; PLT - PLATELET COUNT 158 10^3/uL (130-450); RED BLOOD COUNT 4.08 10^6/uL (4.20-5.40); RED CELL DISTRIBUTION WIDTH 14.5 % (12.0-15.0)
[2022-08-26 09:20] LABS: CALCIUM 8.1 mg/dL (8.5-10.3); CREATININE 0.4 mg/dL (0.4-1.0); MAGNESIUM 1.7 mg/dL (1.7-2.8); POTASSIUM 3.2 mmol/L (3.5-5.0)
[2022-08-26] MEDS: levETIRAcetam 250 MG TABLET PO SCH ×2 (10:37→21:04)
[2022-08-26] MEDS ORDERED: CALCIUM GLUC 1,000MG/50ML-NACL 1,000 MG/50 ML BAG IV ONE (12:00)
[2022-08-26] MEDS: HYDROmorphone 0.5 MG/0.5 ML SYRINGE IVP PRN ×4 (13:27→21:15)
[2022-08-26] MEDS: POTASSIUM CHLOR 10 MEQ/100 ML 10 MEQ/100 ML BAG IV SCH ×4 (13:28→16:51)
--- NOTE | 2022-08-26 20:25 | PROVIDER PROGRESS NOTE ---
Assessment/Plan - Problem List (1) Gastroenteritis Assessment/Plan: She presented with abd pain, nausea, vomiting, diarrhea. She was started on iv fluids, clear liquid diet, iv antiemetics, and iv pain meds. This morning she is again nauseated, not hungry but has less abd pain Plan: Due to persistent GI symptoms, inability to take in adequate hydration or nutrition, will admit this patient from observation status to inpatient Continue with IV fluids, IV antiemetics as needed, IV pain meds Continue at the present diet order which is pured diet with thin liquids, do not advance yet We will stop the empiric IV Flagyl, started by the admitting telemedicine doctor, presumably that was ordered for possible colitis, but her CT abd showed no colitis. (2) Dehydration The patient still has a dry oral mucosa, still has evidence of clinical dehydration. Plan: Continue with IV fluids for hydration until she can take adequate po fluids (3) Hypokalemia This is likely related to potassium losses in her vomiting and her diarrhea Plan: We will replace with IV riders and not try oral potassium today, given the nausea. (4) UTI She has had prior UTIs because of the chronic indwelling Ramirez. She was started on empiric IV ceftriaxone Blood culture and urine culture results are still pending Labs were all reviewed. Her WBC had decreased from 12.4 to 7.9 Plan: Continue with IV Ceftriaxone Await culture results to tailor antibiotic (5) Chronic indewelling ramirez catheter As per Hx (6) Decubitus ulcer As per history. Present at admission, on her sacrum. Images were taken Plan: Topical care by nursing Rolling and offloading ordered (7) Paraplegia As per history. Plan: We will order any medications for spastic pain if she is on them at home, when her medication list is reconciled by pharmacy. When she is ready for discharge, and we will order resumption of her home health care company's caregiving at her house (8) Seizure disorder She was on Keppra at home. The pharmacist said that it appears that the patient has not refilled her Keppra prescription for many months Plan: In order to prevent a seizure, we will continue with the Keppra dose (which was listed as one of her old medications), since possibly she is getting antiseizure medications from somewhere else which our pharmacy is not aware of. - Current Meds Current Meds: Current Medications Generic Name Dose Route Start Last Admin Trade Name Juanq PRN Reason Stop Dose Admin Famotidine 20 mg 08/26/22 09:00 08/26/22 08:28 Famotidine 20 Mg/2 Ml Vial IVP 20 mg BID VANE Administration Hydromorphone HCl 0.5 mg 08/26/22 08:14 08/26/22 18:24 Hydromorphone 0.5 Mg/0.5 Ml Syringe IVP 0.5 mg Q2H PRN Administration Severe Pain (Level 7-10) Sodium Chloride 1,000 mls @ 100 mls/hr 08/24/22 22:00 08/26/22 13:48 Normal Saline 0.9% IV 100 mls/hr .Q10H VANE Administration Ceftriaxone Sodium 1 gm/ 100 mls @ 200 mls/hr 08/25/22 09:00 08/26/22 09:06 Sodium Chloride IV Infused DAILY VANE Infusion Levetiracetam 500 mg 08/24/22 22:00 08/26/22 10:37 Levetiracetam 250 Mg Tablet PO Not Given Q12H VANE Ondansetron HCl 4 mg 08/24/22 21:10 08/26/22 18:30 Ondansetron 4 Mg/2 Ml Vial IVP 4 mg Q6HR PRN Administration Nausea / Vomiting Prochlorperazine Edisylate 10 mg 08/26/22 08:10 08/26/22 08:28 Prochlorperazine 10 Mg/2 Ml Vial IVP 10 mg Q6HR PRN Administration Nausea / Vomiting Sodium Chloride 10 ml 08/25/22 01:00 08/26/22 15:35 Sodium Chloride Flush 0.9% 10 Ml Syringe IVP 10 ml 0100,0900,1700 VANE Administration Solifenacin 5 mg 08/25/22 15:46 08/25/22 21:04 Solifenacin Succinate 5 Mg Tablet PO 5 mg DAILY PRN Administration Bladder Spasms Tramadol HCl 50 mg 08/25/22 15:41 08/26/22 05:26 Tramadol 50 Mg Tablet PO 50 mg QID PRN Administration PAIN 5-7 - Lab Result Fish Bone Diagrams: 08/28/22 08:25 08/28/22 08:25 - Additional Planning My Orders: My Active Orders 08/26/22 08:10 Prochlorperazine Inj [Compazine Inj] 10 mg IVP Q6HR PRN 08/26/22 08:14 HYDROmorphone 0.5MG SYRINGE [Dilaudid 0.5MG Syringe] 0.5 mg IVP Q2H PRN 08/26/22 09:00 Famotidine [Pepcid] 20 mg IVP BID 08/27/22 05:00 BMP - BASIC METABOLIC PANEL [CHEM] DAILYLAB CBC - COMP BLD CT W/AUTO DIFF [HEME] DAILYLAB MAGNESIUM [CHEM] DAILYLAB Subjective - Subjective Patient Reports: Nausea (Still gets on and off nausea, is not hungry, has less abd pain, she said) Objective Vital Signs: Vital Signs - 24 hr 08/25/22 08/25/22 08/26/22 20:27 23:55 05:21 Temperature 36.5 C 36.4 C L 36.4 C L Heart Rate [ 69 60 60 Brachial] Respiratory 16 18 18 Rate Blood Pressure 129/70 138/69 H 134/71 H [Right Brachial artery] O2 Saturation 98 98 97 08/26/22 08/26/22 08:00 16:00 Temperature 36.3 C L 36.4 C L Heart Rate [ 65 72 Brachial] Respiratory 18 18 Rate Blood Pressure 126/87 H 142/62 H [Right Brachial artery] O2 Saturation 100 98 Oxygen O2 Source Room air I&O (Last 24 Hrs): Intake and Output Totals x24h 08/24/22 08/25/22 08/26/22 23:59 23:59 23:59 Intake Total 5667.489 5436.667 2176.667 Output Total 325 2350 4675 Balance 1099.667 806.667 -2498.333 General: Alert, Oriented x3 HEENT: EOMI, Other (Dry oral mucosa) Neck: Supple, No JVD Neuro: Alert, Other (Paraplegic) Cardiovascular: Regular rate Respiratory: No respiratory distress Abdomen: Soft, Other (mid-abdomen, no guarding or rebound) Extremities: No clubbing, No edema - Results Results: Laboratory Results WBC 6.0 x10^3/uL (4.8-10.8) 08/26/22 09:04 RBC 4.08 10^6/uL (4.20-5.40) L 08/26/22 09:04 Hgb 11.3 g/dL (12.0-16.0) L 08/26/22 09:04 Hct 36.9 % (37.0-47.0) L 08/26/22 09:04 MCV 90.4 fL (81.0-99.0) 08/26/22 09:04 MCH 27.7 pg (27.0-31.0) 08/26/22 09:04 MCHC 30.6 g/dL (32.0-36.0) L 08/26/22 09:04 RDW 14.5 % (12.0-15.0) 08/26/22 09:04 Plt Count 158 10^3/uL (130-450) 08/26/22 09:04 MPV 11.2 fL (7.9-10.8) H 08/26/22 09:04 Neut # (Auto) 4.7 10^3/uL (1.5-6.6) 08/26/22 09:04 Lymph # (Auto) 0.9 10^3/uL (1.5-3.5) L 08/26/22 09:04 [place] # (Auto) 0.3 10^3/uL (0.0-1.0) 08/26/22 09:04 Eos # (Auto) 0.1 10^3/uL (0.0-0.7) 08/26/22 09:04 Baso # (Auto) 0.0 10^3/uL (0.0-0.1) 08/26/22 09:04 Absolute Nucleated RBC 0.00 x10^3/uL 08/26/22 09:04 Nucleated RBC % 0.0 /100WBC 08/26/22 09:04 Sodium 138 mmol/L (135-145) 08/26/22 09:04 Potassium 3.2 mmol/L (3.5-5.0) L 08/26/22 09:04 Chloride 103 mmol/L (101-111) 08/26/22 09:04 Carbon Dioxide 25 mmol/L (21-32) 08/26/22 09:04 Anion Gap 10.0 (6-13) 08/26/22 09:04 BUN 7 mg/dL (6-20) 08/26/22 09:04 Creatinine 0.4 mg/dL (0.4-1.0) 08/26/22 09:04 Estimated GFR (MDRD) 160 (>89) 08/26/22 09:04 Glucose 107 mg/dL (70-100) H 08/26/22 09:04 Calcium 8.1 mg/dL (8.5-10.3) L 08/26/22 09:04 Magnesium 1.7 mg/dL (1.7-2.8) 08/26/22 09:04 Total Bilirubin 0.5 mg/dL (0.2-1.0) 08/24/22 18:03 AST 40 IU/L (10-42) 08/24/22 18:03 ALT 34 IU/L (10-60) 08/24/22 18:03 Alkaline Phosphatase 110 IU/L (42-121) 08/24/22 18:03 Total Protein 7.7 g/dL (6.7-8.2) 08/24/22 18:03 Albumin 3.6 g/dL (3.2-5.5) 08/24/22 18:03 Globulin 4.1 g/dL (2.1-4.2) 08/24/22 18:03 Albumin/Globulin Ratio 0.9 (1.0-2.2) L 08/24/22 18:03 Lipase 41 U/L (22-51) 08/24/22 18:03 Urine Color DARK YELLOW 08/24/22 19:20 Urine Clarity CLOUDY (CLEAR) 08/24/22 19:20 Urine pH 6.5 PH (5.0-7.5) 08/24/22 19:20 Ur Specific [place] 1.015 (1.002-1.030) 08/24/22 19:20 Urine Protein 30 mg/dL (NEGATIVE) H 08/24/22 19:20 Urine Glucose (UA) NEGATIVE mg/dL (NEGATIVE) 08/24/22 19:20 Urine Ketones 15 mg/dL (NEGATIVE) H 08/24/22 19:20 Urine Occult Blood LARGE (NEGATIVE) H 08/24/22 19:20 Urine Nitrite POSITIVE (NEGATIVE) H 08/24/22 19:20 Urine Bilirubin NEGATIVE (NEGATIVE) 08/24/22 19:20 Urine Urobilinogen 0.2 (NORMAL) E.U./dL (NORMAL) 08/24/22 19:20 Ur Leukocyte Esterase MODERATE (NEGATIVE) H 08/24/22 19:20 Urine RBC 11-25 /HPF (0-5) H 08/24/22 19:20 Urine WBC >25 /HPF (0-5) H 08/24/22 19:20 Ur Squamous Epith Cells FEW Squamous (<= Few) 08/24/22 19:20 Amorphous Sediment Few /LPF 08/24/22 19:20 Urine Bacteria Many /HPF (None Seen) H 08/24/22 19:20 Ur Microscopic Review INDICATED 08/24/22 19:20 Urine Culture Comments INDICATED 08/24/22 19:20 - Procedures Procedures: Procedures DRAINAGE OF VAGINA WITH DRAINAGE DEVICE, VIA OPENING (04/19/20) EXCISION OF LEFT FOOT MUSCLE, OPEN APPROACH (04/19/20) EXCISION OF PERINEUM SUBCU/FASCIA, OPEN APPROACH (04/19/20) EXCISION OF RIGHT TARSAL, OPEN APPROACH (04/19/20) EXCISION OF VAGINA, VIA NATURAL OR ARTIFICIAL OPENING, DIAGN (04/19/20) EXTRACTION OF BUTTOCK SKIN, EXTERNAL APPROACH (02/18/19) EXTRACTION OF L UP LEG SUBCU/FASCIA, PERC APPROACH (02/18/19) EXTRACTION OF LEFT FOOT SKIN, EXTERNAL APPROACH (02/18/19) EXTRACTION OF RIGHT FOOT SKIN, EXTERNAL APPROACH (02/18/19) INSERTION OF INFUSION DEV INTO SUP VENA CAVA, PERC APPROACH (02/18/19) INSERTION OF INFUSION DEVICE INTO UPPER VEIN, PERC APPROACH (04/19/20) INSPECTION OF LOWER INTESTINAL TRACT, ENDO (04/19/20) TRANSFUSE NONAUT RED BLOOD CELLS IN PERIPH VEIN, PERC (04/19/20)
[2022-08-27] MEDS: SODIUM CHLORIDE FLUSH 0.9% 10 ML SYRINGE IVP SCH ×3 (02:32→16:49)
[2022-08-27] MEDS: HYDROmorphone 0.5 MG/0.5 ML SYRINGE IVP PRN ×5 (03:30→21:17)
[2022-08-27 05:25] LABS: BASOPHILS % (AUTO) 0.4 %; EOSINOPHILS # (AUTO) 0.2 10^3/uL (0.0-0.7); EOSINOPHILS % (AUTO) 4.7 %; HCT - HEMATOCRIT 34.5 % (37.0-47.0); HGB - HEMOGLOBIN 10.3 g/dL (12.0-16.0); LYMPHOCYTES # (AUTO) 1.4 10^3/uL (1.5-3.5); LYMPHOCYTES % (AUTO) 31.3 %; MEAN CORPUSCULAR HEMOGLOBIN 27.3 pg (27.0-31.0); MEAN CORPUSCULAR HGB CONC 29.9 g/dL (32.0-36.0); MEAN CORPUSCULAR VOLUME 91.5 fL (81.0-99.0); MEAN PLATELET VOLUME 11.6 fL (7.9-10.8); MONOCYTES # (AUTO) 0.3 10^3/uL (0.0-1.0); MONOCYTES % (AUTO) 7.1 %; NEUTROPHILS # (AUTO) 2.5 10^3/uL (1.5-6.6); NEUTROPHILS % (AUTO) 56.3 %; PLT - PLATELET COUNT 160 10^3/uL (130-450); RED BLOOD COUNT 3.77 10^6/uL (4.20-5.40); RED CELL DISTRIBUTION WIDTH 14.2 % (12.0-15.0); WHITE BLOOD COUNT 4.5 x10^3/uL (4.8-10.8)
[2022-08-27 05:36] LABS: CALCIUM 8.4 mg/dL (8.5-10.3); CREATININE 0.4 mg/dL (0.4-1.0); MAGNESIUM 1.7 mg/dL (1.7-2.8)
[2022-08-27] MEDS: cefTRIAXone 1 GM in SODIUM CHLORIDE 0.9% MINIBAG 100 ML IV SCH (08:15)
[2022-08-27] MEDS: SODIUM CHLORIDE 0.9% 1,000 ML IV SCH ×3 (08:15→17:02)
[2022-08-27] MEDS: ONDANSETRON 4 MG/2 ML VIAL IVP PRN ×2 (08:23→14:27)
[2022-08-27] MEDS: traMADol 50 MG TABLET PO PRN (08:23)
[2022-08-27] MEDS: FAMOTIDINE 20 MG/2 ML VIAL IVP SCH ×2 (08:23→21:16)
[2022-08-27] MEDS: levETIRAcetam 250 MG TABLET PO SCH ×2 (09:58→21:16)
[2022-08-27] MEDS: PROCHLORPERAZINE 10 MG/2 ML VIAL IVP PRN ×2 (10:20→16:48)
--- NOTE | 2022-08-27 17:57 | PROVIDER PROGRESS NOTE ---
Assessment/Plan - Problem List (1) Gastroenteritis Assessment/Plan: She presented with abd pain, nausea, vomiting, diarrhea. CT abd was unremarkable. She was started on iv fluids, clear liquid diet, iv antiemetics, and iv pain meds. The diet was advanced to puree after clears were tolerated. She has had alternating N/V and abd pain and diet not advanced any further. Due to persistent GI symptoms, inability to take in adequate hydration or nutrition, she was admitted from observation status to inpatient This morning she is again nauseated, not hungry and her abd pain continues to come and go. Plan: Continue with IV fluids, IV antiemetics prn, IV pain meds prn Continue at the present diet order which is pured diet with thin liquids, do not advance yet I have stopped the empiric IV Flagyl, started by the admitting telemedicine doctor, which was presumably ordered for possible colitis, but her CT abd showed no colitis. (2) Dehydration The patient still has a dry oral mucosa and skin tenting, still has evidence of clinical dehydration. Plan: Continue with IV fluids for hydration until she can take adequate po fluids (3) Hypokalemia This is likely related to potassium losses in her vomiting and her diarrhea Plan: We will replace with IV riders and not try oral potassium yet, given the nausea. Follow the BMP daily. (4) UTI She has had prior UTIs because of the chronic indwelling Ramirez. She was started on empiric IV ceftriaxone Blood culture and urine culture results are still pending Labs were all reviewed. Her WBC had decreased from 12.4 to 7.9 Plan: Continue with IV Ceftriaxone Await culture results to tailor antibiotic (5) Chronic indewelling ramirez catheter As per Hx (6) Decubitus ulcer As per history. Present at admission, on her sacrum. Images were taken Plan: Topical care by nursing Rolling and offloading ordered (7) Paraplegia As per history. Plan: We will order any medications for spastic pain if she is on them at home, when her medication list is reconciled by pharmacy. When she is ready for discharge, and we will order resumption of her home health care company's caregiving at her house (8) Seizure disorder She was on Keppra at home. The pharmacist said that it appears that the patient has not refilled her Keppra prescription for many months Plan: In order to prevent a seizure, we will continue with the Keppra dose (which was listed as one of her old medications), since possibly she is getting antiseizure medications from somewhere else which our pharmacy is not aware of. - Current Meds Current Meds: Current Medications Generic Name Dose Route Start Last Admin Trade Name Freq PRN Reason Stop Dose Admin Famotidine 20 mg 08/26/22 09:00 08/27/22 08:23 Famotidine 20 Mg/2 Ml Vial IVP 20 mg BID VANE Administration Hydromorphone HCl 0.5 mg 08/26/22 08:14 08/27/22 17:56 Hydromorphone 0.5 Mg/0.5 Ml Syringe IVP 0.5 mg Q2H PRN Administration Severe Pain (Level 7-10) Sodium Chloride 1,000 mls @ 100 mls/hr 08/24/22 22:00 08/27/22 17:02 Normal Saline 0.9% IV 100 mls/hr .Q10H VANE Administration Ceftriaxone Sodium 1 gm/ 100 mls @ 200 mls/hr 08/25/22 09:00 08/27/22 09:38 Sodium Chloride IV Infused DAILY VANE Infusion Levetiracetam 500 mg 08/24/22 22:00 08/27/22 09:58 Levetiracetam 250 Mg Tablet PO 500 mg Q12H VANE Administration Ondansetron HCl 4 mg 08/24/22 21:10 08/27/22 14:27 Ondansetron 4 Mg/2 Ml Vial IVP 4 mg Q6HR PRN Administration Nausea / Vomiting Prochlorperazine Edisylate 10 mg 08/26/22 08:10 08/27/22 16:48 Prochlorperazine 10 Mg/2 Ml Vial IVP 10 mg Q6HR PRN Administration Nausea / Vomiting Sodium Chloride 10 ml 08/25/22 01:00 08/27/22 16:49 Sodium Chloride Flush 0.9% 10 Ml Syringe IVP 10 ml 0100,0900,1700 VANE Administration Solifenacin 5 mg 08/25/22 15:46 08/25/22 21:04 Solifenacin Succinate 5 Mg Tablet PO 5 mg DAILY PRN Administration Bladder Spasms Tramadol HCl 50 mg 08/25/22 15:41 08/27/22 08:23 Tramadol 50 Mg Tablet PO 50 mg QID PRN Administration PAIN 5-7 - Lab Result Fish Bone Diagrams: 08/27/22 05:07 08/27/22 05:07 - Additional Planning My Orders: My Active Orders 08/28/22 05:00 IRON TIBC PANEL [CHEM] DAILYLAB Subjective - Subjective Patient Reports: Abdominal Pain, Other (Less nauseated) Objective Vital Signs: Vital Signs - 24 hr 08/26/22 08/26/22 08/27/22 20:34 23:49 03:46 Temperature 36.3 C L 36.6 C 36.4 C L Heart Rate [ 71 90 64 Brachial] Respiratory 18 20 18 Rate Blood Pressure 155/65 H 149/71 H 145/72 H [Right Brachial artery] O2 Saturation 98 100 96 08/27/22 08/27/22 08:00 16:00 Temperature 36.6 C 36.6 C Heart Rate [ 66 60 Brachial] Respiratory 18 17 Rate Blood Pressure 145/68 H 156/71 H [Right Brachial artery] O2 Saturation 97 98 Oxygen O2 Source Room air I&O (Last 24 Hrs): Intake and Output Totals x24h 08/25/22 08/26/22 08/27/22 23:59 23:59 23:59 Intake Total 3156.667 3086.667 2743.333 Output Total 2350 5375 4625 Balance 806.667 -2288.333 -1881.667 General: Alert, Other (Thin, ashen female) HEENT: Other (Dry mucosa) Neuro: Alert, Other (Paraplegic) Cardiovascular: Regular rate Respiratory: No respiratory distress Abdomen: Normal bowel sounds, Soft, Other (Tender to moderate palp in mid abd) Extremities: No clubbing, No edema - Results Results: Laboratory Results WBC 4.5 x10^3/uL (4.8-10.8) L 08/27/22 05:07 RBC 3.77 10^6/uL (4.20-5.40) L 08/27/22 05:07 Hgb 10.3 g/dL (12.0-16.0) L 08/27/22 05:07 Hct 34.5 % (37.0-47.0) L 08/27/22 05:07 MCV 91.5 fL (81.0-99.0) 08/27/22 05:07 MCH 27.3 pg (27.0-31.0) 08/27/22 05:07 MCHC 29.9 g/dL (32.0-36.0) L 08/27/22 05:07 RDW 14.2 % (12.0-15.0) 08/27/22 05:07 Plt Count 160 10^3/uL (130-450) 08/27/22 05:07 MPV 11.6 fL (7.9-10.8) H 08/27/22 05:07 Neut # (Auto) 2.5 10^3/uL (1.5-6.6) 08/27/22 05:07 Lymph # (Auto) 1.4 10^3/uL (1.5-3.5) L 08/27/22 05:07 [place] # (Auto) 0.3 10^3/uL (0.0-1.0) 08/27/22 05:07 Eos # (Auto) 0.2 10^3/uL (0.0-0.7) 08/27/22 05:07 Baso # (Auto) 0.0 10^3/uL (0.0-0.1) 08/27/22 05:07 Absolute Nucleated RBC 0.00 x10^3/uL 08/27/22 05:07 Nucleated RBC % 0.0 /100WBC 08/27/22 05:07 Sodium 143 mmol/L (135-145) 08/27/22 05:07 Potassium 4.0 mmol/L (3.5-5.0) 08/27/22 05:07 Chloride 108 mmol/L (101-111) 08/27/22 05:07 Carbon Dioxide 26 mmol/L (21-32) 08/27/22 05:07 Anion Gap 9.0 (6-13) 08/27/22 05:07 BUN 7 mg/dL (6-20) 08/27/22 05:07 Creatinine 0.4 mg/dL (0.4-1.0) 08/27/22 05:07 Estimated GFR (MDRD) 160 (>89) 08/27/22 05:07 Glucose 67 mg/dL (70-100) L 08/27/22 05:07 Calcium 8.4 mg/dL (8.5-10.3) L 08/27/22 05:07 Magnesium 1.7 mg/dL (1.7-2.8) 08/27/22 05:07 Total Bilirubin 0.5 mg/dL (0.2-1.0) 08/24/22 18:03 AST 40 IU/L (10-42) 08/24/22 18:03 ALT 34 IU/L (10-60) 08/24/22 18:03 Alkaline Phosphatase 110 IU/L (42-121) 08/24/22 18:03 Total Protein 7.7 g/dL (6.7-8.2) 08/24/22 18:03 Albumin 3.6 g/dL (3.2-5.5) 08/24/22 18:03 Globulin 4.1 g/dL (2.1-4.2) 08/24/22 18:03 Albumin/Globulin Ratio 0.9 (1.0-2.2) L 08/24/22 18:03 Lipase 41 U/L (22-51) 08/24/22 18:03 Urine Color DARK YELLOW 08/24/22 19:20 Urine Clarity CLOUDY (CLEAR) 08/24/22 19:20 Urine pH 6.5 PH (5.0-7.5) 08/24/22 19:20 Ur Specific [place] 1.015 (1.002-1.030) 08/24/22 19:20 Urine Protein 30 mg/dL (NEGATIVE) H 08/24/22 19:20 Urine Glucose (UA) NEGATIVE mg/dL (NEGATIVE) 08/24/22 19:20 Urine Ketones 15 mg/dL (NEGATIVE) H 08/24/22 19:20 Urine Occult Blood LARGE (NEGATIVE) H 08/24/22 19:20 Urine Nitrite POSITIVE (NEGATIVE) H 08/24/22 19:20 Urine Bilirubin NEGATIVE (NEGATIVE) 08/24/22 19:20 Urine Urobilinogen 0.2 (NORMAL) E.U./dL (NORMAL) 08/24/22 19:20 Ur Leukocyte Esterase MODERATE (NEGATIVE) H 08/24/22 19:20 Urine RBC 11-25 /HPF (0-5) H 08/24/22 19:20 Urine WBC >25 /HPF (0-5) H 08/24/22 19:20 Ur Squamous Epith Cells FEW Squamous (<= Few) 08/24/22 19:20 Amorphous Sediment Few /LPF 08/24/22 19:20 Urine Bacteria Many /HPF (None Seen) H 08/24/22 19:20 Ur Microscopic Review INDICATED 08/24/22 19:20 Urine Culture Comments INDICATED 08/24/22 19:20 - Procedures Procedures: Procedures DRAINAGE OF VAGINA WITH DRAINAGE DEVICE, VIA OPENING (04/19/20) EXCISION OF LEFT FOOT MUSCLE, OPEN APPROACH (04/19/20) EXCISION OF PERINEUM SUBCU/FASCIA, OPEN APPROACH (04/19/20) EXCISION OF RIGHT TARSAL, OPEN APPROACH (04/19/20) EXCISION OF VAGINA, VIA NATURAL OR ARTIFICIAL OPENING, DIAGN (04/19/20) EXTRACTION OF BUTTOCK SKIN, EXTERNAL APPROACH (02/18/19) EXTRACTION OF L UP LEG SUBCU/FASCIA, PERC APPROACH (02/18/19) EXTRACTION OF LEFT FOOT SKIN, EXTERNAL APPROACH (02/18/19) EXTRACTION OF RIGHT FOOT SKIN, EXTERNAL APPROACH (02/18/19) INSERTION OF INFUSION DEV INTO SUP VENA CAVA, PERC APPROACH (02/18/19) INSERTION OF INFUSION DEVICE INTO UPPER VEIN, PERC APPROACH (04/19/20) INSPECTION OF LOWER INTESTINAL TRACT, ENDO (04/19/20) TRANSFUSE NONAUT RED BLOOD CELLS IN PERIPH VEIN, PERC (04/19/20)
[2022-08-28] MEDS: HYDROmorphone 0.5 MG/0.5 ML SYRINGE IVP PRN ×7 (00:02→21:37)
[2022-08-28] MEDS: PROCHLORPERAZINE 10 MG/2 ML VIAL IVP PRN (00:03)
[2022-08-28] MEDS: SODIUM CHLORIDE FLUSH 0.9% 10 ML SYRINGE IVP SCH ×4 (00:03→21:38)
[2022-08-28] MEDS: SODIUM CHLORIDE 0.9% 1,000 ML IV SCH ×3 (02:42→16:15)
[2022-08-28 05:51] LABS: % IRON SATURATION 16 % (20-50); IRON 45 ug/dL (28-170); TOTAL IRON BINDING CAPACITY 279 ug/dL (250-450); TRANSFERRIN 199 mg/dL (192-382)
[2022-08-28 08:34] LABS: BASOPHILS % (AUTO) 0.5 %; EOSINOPHILS # (AUTO) 0.2 10^3/uL (0.0-0.7); HGB - HEMOGLOBIN 11.5 g/dL (12.0-16.0); LYMPHOCYTES # (AUTO) 1.2 10^3/uL (1.5-3.5); LYMPHOCYTES % (AUTO) 32.3 %; MEAN CORPUSCULAR HEMOGLOBIN 27.4 pg (27.0-31.0); MEAN CORPUSCULAR HGB CONC 31.1 g/dL (32.0-36.0); MEAN CORPUSCULAR VOLUME 88.3 fL (81.0-99.0); MEAN PLATELET VOLUME 10.6 fL (7.9-10.8); MONOCYTES # (AUTO) 0.3 10^3/uL (0.0-1.0); MONOCYTES % (AUTO) 8.5 %; NEUTROPHILS # (AUTO) 1.9 10^3/uL (1.5-6.6); NEUTROPHILS % (AUTO) 52.4 %; PLT - PLATELET COUNT 169 10^3/uL (130-450); RED BLOOD COUNT 4.19 10^6/uL (4.20-5.40); RED CELL DISTRIBUTION WIDTH 13.9 % (12.0-15.0); WHITE BLOOD COUNT 3.7 x10^3/uL (4.8-10.8)
[2022-08-28 08:42] LABS: CALCIUM 8.2 mg/dL (8.5-10.3); CREATININE 0.3 mg/dL (0.4-1.0); POTASSIUM 3.7 mmol/L (3.5-5.0)
[2022-08-28] MEDS: FAMOTIDINE 20 MG/2 ML VIAL IVP SCH ×2 (09:10→21:37)
[2022-08-28] MEDS: cefTRIAXone 1 GM in SODIUM CHLORIDE 0.9% MINIBAG 100 ML IV SCH ×2 (09:10→12:30)
[2022-08-28] MEDS: levETIRAcetam 250 MG TABLET PO SCH ×3 (10:37→22:34)
[2022-08-28] MEDS: ONDANSETRON 4 MG/2 ML VIAL IVP PRN ×2 (10:37→21:37)
[2022-08-28] MEDS: MULTIVITAMIN W/MINERALS TABLET PO SCH (12:19)
[2022-08-28] MEDS: SODIUM CHLORIDE FLUSH 0.9% 10 ML SYRINGE IVP PRN (18:25)
--- NOTE | 2022-08-28 18:26 | PROVIDER PROGRESS NOTE ---
Subjective - Prog Note Date Prog Note Date: 08/28/22 Prog Note Time: 18:18 - Subjective Subjective: Still has mild nausea, intermittent abdominal pain. She really does not like the pured diet. She wonders if that contributes to her nausea. She has not had any diarrhea since she has been admitted. But she really does not have an appetite. Current Medications - Current Medications Current Medications: Active Medications Famotidine (Famotidine 20 Mg/2 Ml Vial) 20 mg IVP BID [facility] Last Admin: 08/28/22 09:10 Dose: 20 mg Hydromorphone HCl (Hydromorphone 0.5 Mg/0.5 Ml Syringe) 0.5 mg IVP Q2H PRN PRN Reason: Severe Pain (Level 7-10) Last Admin: 08/28/22 18:25 Dose: 0.5 mg Ceftriaxone Sodium 1 gm/ (Sodium Chloride) 100 mls @ 200 mls/hr IV DAILY [facility] Last Infusion: 08/28/22 13:00 Dose: Infused Sodium Chloride (Normal Saline 0.9%) 1,000 mls @ 80 mls/hr IV .[id number] [facility] Last Admin: 08/28/22 16:15 Dose: 80 mls/hr Levetiracetam (Levetiracetam 250 Mg Tablet) 500 mg PO Q12H [facility] Last Admin: 08/28/22 10:37 Dose: 500 mg Multivitamins/Minerals (Multivitamin W/Minerals Tablet) 1 tab PO DAILYWM [facility] Last Admin: 08/28/22 12:19 Dose: 1 tab Ondansetron HCl (Ondansetron 4 Mg/2 Ml Vial) 4 mg IVP Q6HR PRN PRN Reason: Nausea / Vomiting Last Admin: 08/28/22 10:37 Dose: 4 mg Prochlorperazine Edisylate (Prochlorperazine 10 Mg/2 Ml Vial) 10 mg IVP Q6HR PRN PRN Reason: Nausea / Vomiting Last Admin: 08/28/22 00:03 Dose: 10 mg Sodium Chloride (Sodium Chloride Flush 0.9% 10 Ml Syringe) 10 ml IVP PRN PRN PRN Reason: NEEDED PER PROVIDER ORDERS Last Admin: 08/28/22 18:25 Dose: 10 ml Sodium Chloride (Sodium Chloride Flush 0.9% 10 Ml Syringe) 10 ml IVP 0100,0900,1700 VANE Last Admin: 08/28/22 17:43 Dose: Not Given Solifenacin (Solifenacin Succinate 5 Mg Tablet) 5 mg PO DAILY PRN PRN Reason: Bladder Spasms Last Admin: 08/25/22 21:04 Dose: 5 mg Tramadol HCl (Tramadol 50 Mg Tablet) 50 mg PO QID PRN PRN Reason: PAIN 5-7 Last Admin: 08/27/22 08:23 Dose: 50 mg Oxybutynin Chloride 5 mg PO TID PRN 02/19/19 Aspirin [Alnozo] 325 mg PO Q4H PRN 08/25/22 Ginkgo Biloba [place] Extract [Ginkgo Biloba Extract] 1 cap PO BID 08/25/22 Glucosamine HCl/Chondroitin [place] [Glucosamine-Chondroitin Cap] 1 cap PO BID 08/05 06/28 traMADol [Ultram] 50 mg PO QID PRN 08/25/22 Objective - Vital Signs/Intake & Output Reviewed Vital Signs: Yes Vital Signs: Vital Signs x48h Temp Pulse Resp BP Pulse Ox 08/28/22 17:29 166/79 H 08/28/22 16:59 171/70 H 08/28/22 16:51 36.5 C 72 18 98 Intake & Output: Intake & Output 08/25/22 08/26/22 08/27/22 08/28/22 23:59 23:59 23:59 23:59 Intake Total 3156.667 3086.667 2743.333 3411.667 Output Total 2350 5375 8520 4700 Balance 806.667 -2288.333 -5776.667 -1288.333 - Objective General Appearance: positive: Alert, Other (paraplegic, weak, low voice, fatigued appearing.) Eyes Bilateral: positive: PERRL ENT: positive: Dry mucous membranes (trying to moisten her lips with lick of tongue and is unsucessful, she laments dry mouth) Neck: positive: No JVD. negative: Stiff neck Respiratory: positive: No respiratory distress, Other (shallow, unlabored, quiet breath sounds). negative: Wheezes, Rales, Rhonchi Cardiovascular: positive: Regular rate & rhythm Abdomen: positive: Non-tender, No organomegaly, Nml bowel sounds, No distention Skin: positive: Warm, Dry Extremities: positive: No pedal edema Neurologic/Psychiatric: positive: Oriented x3, CN's nml (2-12). negative: Motor nml (paraplegic) - Lab Results Fish Bones: 08/28/22 08:25 08/28/22 08:25 Other Labs: Lab Results x24hrs 08/28/22 08/28/22 08/28/22 Range/Units 08:25 08:25 05:17 WBC 3.7 L (4.8-10.8) x10^3/uL RBC 4.19 L (4.20-5.40) 10^6/uL Hgb 11.5 L (12.0-16.0) g/dL Hct 37.0 (37.0-47.0) % MCV 88.3 (81.0-99.0) fL MCH 27.4 (27.0-31.0) pg MCHC 31.1 L (32.0-36.0) g/dL RDW 13.9 (12.0-15.0) % Plt Count 169 (130-450) 10^3/uL MPV 10.6 (7.9-10.8) fL Neut # (Auto) 1.9 (1.5-6.6) 10^3/uL Lymph # (Auto) 1.2 L (1.5-3.5) 10^3/uL [place] # (Auto) 0.3 (0.0-1.0) 10^3/uL Eos # (Auto) 0.2 (0.0-0.7) 10^3/uL Baso # (Auto) 0.0 (0.0-0.1) 10^3/uL Absolute Nucleated RBC 0.00 x10^3/uL Nucleated RBC % 0.0 /100WBC Sodium 139 (135-145) mmol/L Potassium 3.7 (3.5-5.0) mmol/L Chloride 102 (101-111) mmol/L Carbon Dioxide 28 (21-32) mmol/L Anion Gap 9.0 (6-13) BUN 5 L (6-20) mg/dL Creatinine 0.3 L (0.4-1.0) mg/dL Estimated GFR (MDRD) 223 (>89) Glucose 122 H (70-100) mg/dL Calcium 8.2 L (8.5-10.3) mg/dL Iron 45 (28-170) ug/dL TIBC 279 (250-450) ug/dL % Saturation 16 L (20-50) % Transferrin 199 (192-382) mg/dL ABX Reporting Has patient been on IV antibiotics over the past 48 hours?: Yes Assessment/Plan - Problem List (1) Gastroenteritis Impression: She presented with abd pain, nausea, vomiting, diarrhea. CT abd was unremarkable. She was started on iv fluids, clear liquid diet, iv antiemetics, and iv pain meds. The diet was advanced to puree after clears were tolerated. She has had alternating N/V and abd pain and diet not advanced any further. But today she tells me she really dislikes pureed. Flagyl was discontinued 08/27 since no indication for it Due to persistent GI symptoms, inability to take in adequate hydration or nutrition, she was admitted from observation status to inpatient Yesterday and today, she is again nauseated, not hungry and her abd pain continues to come and go but is less intense than yesterday Plan: Continue with IV fluids, IV antiemetics prn, IV pain meds prn Advance to low fat soft diet and see if appetite is better. (2) Dehydration She is still with dry oral mucosa but skin tenting better. Plan: Continue with IV fluids for hydration until she can take adequate po fluids (3) Hypokalemia resolved. This is likely related to potassium losses in her vomiting and her diarrhea. Has been supplemented in the last few days and is 3.7 today. Plan: follow daily BMP (4) UTI She has had prior UTIs because of the chronic indwelling Ramirez. She was started on empiric IV ceftriaxone. There were no blood cultures done. Microbiology 08/24/22 19:20 Urine,Catheterized Urine Culture - Final Citrobacter Freundii Providencia Stuartii Myroides Spp. Labs were all reviewed. Her WBC had decreased from 12.4 to 3.7 today. The Citrobacter and the providencia are sensitive to ceftriaxone. The third bug is sensitive to Cipro. Unfortunately the Graham is not sensitive to Cipro. As such she appears to have responded. But I wonder if this truly is a UTI and just colonization with multiple bacteria in a patient who has a chronic indwelling Ramirez catheter. Plan: Continue with IV Ceftriaxone and stop after tomorrow. Today is day #5. (5) Chronic indewelling ramirez catheter As per Hx (6) Decubitus ulcer As per history. Present at admission, on her sacrum. Images were taken Plan: Topical care by nursing Rolling and offloading ordered (7) Paraplegia As per history. Plan: We will order any medications for spastic pain if she is on them at home, when her medication list is reconciled by pharmacy. When she is ready for discharge, and we will order resumption of her home health care company's caregiving at her house (8) Seizure disorder She was on Keppra at home. The pharmacist said that it appears that the patient has not refilled her Keppra prescription for many months. But she is very anxious about this today. She feels like she is going to go home and have a seizure. As such I have resumed her Keppra at 500 mg po bid.
[2022-08-28] MEDS: traMADol 50 MG TABLET PO PRN (19:57)
[2022-08-28] MEDS ORDERED: hydrALAZINE INJ 20 MG/ML VIAL IVP ONE (22:06)
[2022-08-28] MEDS ORDERED: SODIUM CHLORIDE 0.9% 100ML 100 ML IV ONE (22:42)
[2022-08-28] MEDS ORDERED: levETIRAcetam INJ 500 MG in SODIUM CHLORIDE 0.9% 100ML 100 ML IV ONE (23:00)
[2022-08-29] MEDS: HYDROmorphone 0.5 MG/0.5 ML SYRINGE IVP PRN ×2 (04:58→08:24)
[2022-08-29] MEDS: SODIUM CHLORIDE FLUSH 0.9% 10 ML SYRINGE IVP PRN (04:58)
[2022-08-29] MEDS: SODIUM CHLORIDE 0.9% 1,000 ML IV SCH (04:59)
[2022-08-29 05:20] LABS: BASOPHILS % (AUTO) 0.2 %; EOSINOPHILS # (AUTO) 0.1 10^3/uL (0.0-0.7); EOSINOPHILS % (AUTO) 1.5 %; HCT - HEMATOCRIT 37.1 % (37.0-47.0); HGB - HEMOGLOBIN 11.5 g/dL (12.0-16.0); LYMPHOCYTES % (AUTO) 16.9 %; MEAN CORPUSCULAR HEMOGLOBIN 27.4 pg (27.0-31.0); MEAN CORPUSCULAR VOLUME 88.5 fL (81.0-99.0); MONOCYTES # (AUTO) 0.3 10^3/uL (0.0-1.0); MONOCYTES % (AUTO) 5.5 %; NEUTROPHILS # (AUTO) 4.6 10^3/uL (1.5-6.6); NEUTROPHILS % (AUTO) 75.6 %; PLT - PLATELET COUNT 200 10^3/uL (130-450); RED BLOOD COUNT 4.19 10^6/uL (4.20-5.40)
[2022-08-29 05:35] LABS: CALCIUM 8.5 mg/dL (8.5-10.3); CREATININE 0.4 mg/dL (0.4-1.0); POTASSIUM 4.3 mmol/L (3.5-5.0)
[2022-08-29] MEDS ORDERED: hydrALAZINE INJ 20 MG/ML VIAL IVP PRN (08:14)
[2022-08-29 08:21] VITALS: BP 156/78
[2022-08-29] MEDS: MULTIVITAMIN W/MINERALS TABLET PO SCH (08:23)
[2022-08-29] MEDS: FAMOTIDINE 20 MG/2 ML VIAL IVP SCH (08:23)
[2022-08-29] MEDS: ONDANSETRON 4 MG/2 ML VIAL IVP PRN (08:23)
[2022-08-29] MEDS: SODIUM CHLORIDE FLUSH 0.9% 10 ML SYRINGE IVP SCH (08:24)
[2022-08-29] MEDS ORDERED: METOPROLOL SUCCINATE 50 MG TABLET PO SCH (09:00)
[2022-08-29] MEDS: levETIRAcetam 250 MG TABLET PO SCH (10:21)
--- NOTE | 2022-08-29 11:38 | Discharge Plan ---
Discharge Plan Problem Reviewed?: Yes Disposition: Home Health Service Condition: Stable Prescriptions: Metoprolol Succinate [Toprol Xl] 50 mg PO DAILY #30 tab Mvn-Min75/Iron/Iron Ps/Om3/Dha [Wescap-C Dha Softgel] 1 each PO DAILY #100 cap Diet: Regular Activity Restrictions: Activity as Tolerated Shower Restrictions: No Driving Restrictions: Yes (no driving) Assistance Devices: Wheelchair, Walker Health Concerns: You have paraplegia and spend a lot of time in your wheelchair, and have all the medical problems associated with that. Unfortunately you then developed sudden vomiting and diarrhea. It was associated with a lot of generalized abdominal pain. You have a chronic decubitus pressure ulcer that is taken care of by home health nurse and wound care. In the emergency room you had a low-grade temperature, but normal blood pressure and pulse. Your urine appeared infected. And you had an elevated white cell count indicating possible infection. We treated you with pain medicines, nausea medicines, intravenous fluids to hydrate you. We also gave you antibiotics for a UTI. Your abdominal pain is almost all gone. You are able to tolerate food without any vomiting. You no longer have any diarrhea. We feel you are stable to return to home. During your stay you did have a problem with blood pressure. It was quite elevated and was giving you a headache. So we have started you on a new blood pressure medicine. You were also concerned about the use of Keppra for seizures. You used to have a seizure problem related to an antidepressant. Once you stop the antidepressant you no longer had the seizure problem. Somehow that medicine still is on your list and resume that while you were here. You do not need to go home on the Keppra Plan of Treatment: 1. Please see your primary care provider in follow-up. You see Physician Child Care Worker. Tonio Beckwith ([place]) in [place]. He is part of [facility]. [phone]. We would like him to see you in the next 2 to 3 weeks for a follow-up visit. You not only need to follow- up with him about the question about your seizures, but we also started you on a new blood pressure drug while here. Your blood pressure was elevated . It was 188/74 and gave you a headache. We started you on metoprolol tablet 50 mg, once a day. That has been called into your pharmacy. 2. You have already completed your therapy for a UTI. You do not need any more antibiotics. 3. After discussing the fact that you have not been on Keppra for over a year and a half, you will not be sent home on Keppra. Please verify with your physician administrative office assistant that is correct to not be on it. 4. We will resume your home health nurse for your wound care. Care Goals: To have your blood pressure under control, and to have your pressure ulcer eventually heal Assessment: Patient is alert, oriented, promises to follow through with appointments Follow-Up Care: Home Health - RN (for wound care, resuming service) No Smoking: If you smoke, Please STOP! Call for help.
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
== END 2022-08-29 12:41 | disposition home health service (06) | DRG 392 ==
LOC: EDUNIT# → ED 17:37 → MS2 21:11 → OBSVTOIN 08-26 08:20
PROVIDERS: ADMIT Internal Medicine; ATTEND Specialist
DX: K52.9 Noninfective gastroenteritis and colitis, unspecified (principal); T83.511A Infection and inflammatory reaction due to indwelling urethral catheter, initial encounter; Z96.0 Presence of urogenital implants; Z86.718 Personal history of other venous thrombosis and embolism; N39.0 Urinary tract infection, site not specified; F32.A Depression, unspecified; F41.9 Anxiety disorder, unspecified; G82.20 Paraplegia, unspecified; E86.0 Dehydration; E87.6 Hypokalemia; T14.8XXS Other injury of unspecified body region, sequela; I10 Essential (primary) hypertension; G43.909 Migraine, unspecified, not intractable, without status migrainosus; E03.9 Hypothyroidism, unspecified; G40.909 Epilepsy, unspecified, not intractable, without status epilepticus; R15.9 Full incontinence of feces; L89.219 Pressure ulcer of right hip, unspecified stage; M16.0 Bilateral primary osteoarthritis of hip; B96.89 Other specified bacterial agents as the cause of diseases classified elsewhere; L89.159 Pressure ulcer of sacral region, unspecified stage; L89.899 Pressure ulcer of other site, unspecified stage; Z99.3 Dependence on wheelchair; S90.421A Blister (nonthermal), right great toe, initial encounter; S90.821A Blister (nonthermal), right foot, initial encounter; Z87.891 Personal history of nicotine dependence; Z66 Do not resuscitate; Z86.69 Personal history of other diseases of the nervous system and sense organs
CPT/HCPCS: 36415; 74177; 80048; 80053; 81001; 83540; 83690; 83735; 84466; 85025; 87077; 87086; 87181; 96365; 96366; 96375; 96376; 99285; A9270; G0378; J1170; J1200; J2765; Q9967; 81003

== ENCOUNTER 2023-01-11 14:50 | Outpatient (CLI) | payer MEDICARE, MEDICAID | END 2023-01-11 14:51 | disposition critical access hospital (66) | LOC: EMS 14:50 | DX: M79.89 Other specified soft tissue disorders (principal); M79.662 Pain in left lower leg; M79.661 Pain in right lower leg; Z99.3 Dependence on wheelchair | CPT/HCPCS: A0425; A0429 ==

== ENCOUNTER 2023-01-11 15:10 | Emergency (ER) | payer MEDICARE, MEDICAID ==
--- NOTE | 2023-01-11 15:34 | ED Physician Documentation ---
History of Present Illness - Stated complaint Stated Complaint: WOUND/LEG INFECTION - Chief complaint Chief Complaint: General - History obtained from History obtained from: Patient, EMS - Additonal information Additional information: The patient comes to the emergency department chief complaint of swelling in lower extremities and wants wound check. The patient is a longstanding paraplegic and states that she has recently been turned out of her duplex. She states she was not able to find any further housing. As such, she ended up in a motel where she will be staying for 2 weeks. The patient states that she cannot get in the motel bed because it is too high for her to reach from her wheelchair. She has been having to sleep in her wheelchair and her legs have been hanging down around the clock. They have been getting increasingly swollen and now her left leg is weeping. She denies fevers or chills. She does have established pressure ulcers of her gluteal area. She does have a health care legal assistant/wound care nurse who comes every few days to do dressing changes and was just there today. The patient states that she is concerned about her ability to care for herself in this setting. She also notes some runny, but not watery, diarrhea recently. No other complaints at this time. PD PAST MEDICAL HISTORY - Past Medical History Cardiovascular: Deep vein thrombosis Respiratory: None Neuro: Head injury, Migraines, Seizure disorder Endocrine/Autoimmune: HyPOthyroidism GI: Hepatitis, Cholelithiasis AGENT CONTRACT CLERK: Other : Retention, Kidney stones, Other HEENT: Chronic vision loss Psych: Depression, Anxiety Musculoskeletal: Osteoarthritis, Paraplegia, Fatigue, Chronic back pain, Other Derm: Other - Past Surgical History Past Surgical History: Yes Ortho: Spine surgery /AGENT CONTRACT CLERK: Tubal ligation HEENT: Tonsil/Adenoidectomy Derm: Skin grafts - Present Medications Home Medications: Ambulatory Orders Medication Instructions Recorded Confirmed Oxybutynin Chloride 5 mg PO TID PRN 02/19/19 08/25/22 Aspirin [Alonzo] 325 mg PO Q4H PRN 08/25/22 08/25/22 Ginkgo Biloba [place] Extract [Ginkgo 1 cap PO BID 08/25/22 08/25/22 Biloba Extract] Glucosamine HCl/Chondroitin Spivey 1 cap PO BID 08/25/22 08/25/22 [Glucosamine-Chondroitin Cap] traMADol [Ultram] 50 mg PO QID PRN 08/25/22 08/25/22 Metoprolol Succinate [Toprol Xl] 50 mg PO DAILY #30 tab 08/29/22 Mvn-Min75/Iron/Iron Ps/Om3/Dha 1 each PO DAILY #100 cap 08/29/22 [Wescap-C Dha Softgel] - Allergies Allergies/Adverse Reactions: Allergies Allergy/AdvReac Type Severity Reaction Status Date / Time ertapenem Allergy Severe Unknown Verified 01/11/23 16:20 Penicillins Allergy Mild Rash Verified 01/11/23 16:20 chlorhexidine Allergy Unknown Itching Verified 01/11/23 16:20 morphine Allergy Unknown Itching Verified 01/11/23 16:20 gabapentin Allergy Unknown Verified 01/11/23 16:20 linezolid Allergy Nausea Verified 01/11/23 16:20 - Social History Does the pt smoke?: No Smoking Status: Never smoker Does the pt drink ETOH?: No Does the pt have substance abuse?: No - Immunizations Immunizations are current?: Yes - POLST Patient has POLST: Yes POLST Status: DNR (No intubation or CPR.) PD ED PE NORMAL - Vitals Vital signs reviewed: Yes - General General: Alert and oriented X 3, No acute distress, Well developed/nourished - HEENT HEENT: Atraumatic, PERRL, EOMI, Moist mucous membranes - Neck Neck: Supple, no meningeal sign - Respiratory Respiratory: No respiratory distress - Derm Derm: Warm and dry, Other (Multiple stage I and II pressure ulcers over gluteal region, very hygienic and appearing very well cared for. Posterior heel pressure ulcers noted, both stage I-II, clean and dry. Marked edema bilateral lower extremities With weeping of clear fluid from left pretibial area. No erythema.) - Extremities Extremities: No deformity, Other (Marked edema symmetrically, bilateral lower extremities.) - Neuro Neuro: Alert and oriented X 3 - Psych Psych: Normal mood, Normal affect Results - Vitals Vitals: Vital Signs - 24 hr 01/11/23 15:16 Temperature 36.4 C L Heart Rate 63 Respiratory 18 Rate Blood Pressure 155/78 H O2 Saturation 97 Oxygen O2 Source Room air PD Medical Decision Making - ED course Complexity details: considered differential, d/w patient ED course: The patient's wounds were actually very clean and well cared for and although she did have marked edema in her bilateral lower bilateral lower extremities, there is no evidence of cellulitis. Patient was concerned about her status in the motel room, so I did consult the social services counselor. However, the patient stated she did not want the social workers help and that she would rather just go back to the motel. As such I have discharged her. I have given her a prescription for prescription grade compression hose and advised her that she should wear these / to help with the edema in her lower extremities. Departure - Departure Disposition: 01 Home, Self Care Clinical Impression: Lower extremity edema, Decubitus ulcer of both heels Sacral decubitus ulcer Qualifiers: Pressure injury stage: unspecified pressure injury stage Qualified Code(s): L89.159 - Pressure ulcer of sacral region, unspecified stage Condition: Stable Instructions: ED Edema Legs Bilateral Comments: We have offered you social work resources, but you have declined these. As far as your ulcers, they actually look very good. You should continue your current regimen of wound care with your home health nurse/aide. As far as the swelling, you may use prescription grade pressure stockings. These are the only things that are likely to be helpful if you do not feel you are able to prop your feet up. Forms: PCP List
[2023-01-11 17:24] VITALS: BP 148/74; O2SAT 96
== END 2023-01-11 17:17 | disposition home or self-care (01) ==
LOC: EDUNIT# → ED 15:10
DX: R60.0 Localized edema (principal); L89.622 Pressure ulcer of left heel, stage 2; L89.612 Pressure ulcer of right heel, stage 2; L89.302 Pressure ulcer of unspecified buttock, stage 2; E03.9 Hypothyroidism, unspecified; Z79.82 Long term (current) use of aspirin; Z79.899 Other long term (current) drug therapy
CPT/HCPCS: 99283

== ENCOUNTER 2023-05-10 15:02 | Outpatient (CLI) | payer MEDICARE, MEDICAID | END 2023-05-10 23:59 | disposition EMS.NT | LOC: EMS 15:02 | DX: Z03.89 Encounter for observation for other suspected diseases and conditions ruled out (principal) ==

== ENCOUNTER 2023-05-28 19:40 | Outpatient (CLI) | payer MEDICARE, MEDICAID | END 2023-05-28 23:59 | disposition EMS.NT | LOC: EMS 19:40 | DX: Z03.89 Encounter for observation for other suspected diseases and conditions ruled out (principal) ==

== ENCOUNTER 2023-07-01 20:50 | Outpatient (CLI) | payer MEDICARE, MEDICAID | END 2023-07-01 23:59 | disposition EMS.NT | LOC: EMS 20:50 | DX: Z03.89 Encounter for observation for other suspected diseases and conditions ruled out (principal) ==

== ENCOUNTER 2023-07-08 10:36 | Outpatient (CLI) | payer MEDICARE, MEDICAID | END 2023-07-08 23:59 | disposition EMS.NT | LOC: EMS 10:36 | DX: Z03.89 Encounter for observation for other suspected diseases and conditions ruled out (principal) ==

== ENCOUNTER 2023-07-19 09:20 | Outpatient (CLI) | payer MEDICARE, MEDICAID | END 2023-07-19 23:59 | disposition EMS.NT | LOC: EMS 09:20 | DX: Z03.89 Encounter for observation for other suspected diseases and conditions ruled out (principal) ==

== ENCOUNTER 2023-09-02 07:21 | Outpatient (CLI) | payer MEDICARE, MEDICAID | END 2023-09-02 07:22 | disposition EMS.NT | LOC: EMS 07:21 | DX: Z03.89 Encounter for observation for other suspected diseases and conditions ruled out (principal) ==

== ENCOUNTER 2023-09-03 13:31 | Outpatient (CLI) | payer MEDICARE, MEDICAID | END 2023-09-03 23:17 | disposition critical access hospital (66) | LOC: EMS 13:31 | DX: N39.0 Urinary tract infection, site not specified (principal); R10.30 Lower abdominal pain, unspecified; R26.81 Unsteadiness on feet; R41.0 Disorientation, unspecified | CPT/HCPCS: A0425; A0429 ==

== ENCOUNTER 2023-09-03 13:56 | Emergency (ER) | payer MEDICARE, MEDICAID ==
--- NOTE | 2023-09-03 13:57 | ED Physician Documentation ---
PD HPI FEMALE - Stated complaint Stated Complaint: - History obtained from History obtained from: Patient - History of Present Illness Timing - onset: How many weeks ago (The patient has had couple of weeks of suprapubic and lower abdominal pain. She does see [facility] urology and they had had a recent urine culture showing an ESBL. Her caregiver states the culture was from about a week ago. The patient concurrently was treated with fosfomycin every other day x3.) Timing - duration: Weeks Timing - details: Gradual onset, Waxing and waning (Suprapubic pain intermittently. Still continues with this after antibiotic treatment of fosfomycin. She called [facility] urology and was told to come to the ER.) Contributing factors: Other (paraplegic and has chronic indwelling ramirez. Frequent ITUs.) Review of Systems Constitutional: denies: Fever, Chills GI: reports: Abdominal Pain (suprapubic area), Nausea. 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: Other : Retention, Kidney stones, Other HEENT: Chronic vision loss Psych: Depression, Anxiety Musculoskeletal: Osteoarthritis, Paraplegia, Fatigue, Chronic back pain, Other Derm: Other - Past Surgical History Past Surgical History: Yes Ortho: Spine surgery /JOURNALISM PROFESSOR: Tubal ligation HEENT: Tonsil/Adenoidectomy Derm: Skin grafts - Present Medications Home Medications: Ambulatory Orders Medication Instructions Recorded Confirmed Oxybutynin Chloride 5 mg PO TID PRN 02/19/19 01/28/23 Ginkgo Biloba [place] Extract [Ginkgo 1 cap PO BID 08/25/22 01/28/23 Biloba Extract] Glucosamine HCl/Chondroitin Spivey 1 cap PO BID 08/25/22 01/28/23 [Glucosamine-Chondroitin Cap] traMADol [Ultram] 50 mg PO QID PRN 08/25/22 08/25/22 Metoprolol Succinate [Toprol Xl] 50 mg PO DAILY #30 tab 08/29/22 Mvn-Min75/Iron/Iron Ps/Om3/Dha 1 each PO DAILY #100 cap 08/29/22 01/28/23 [Wescap-C Dha Softgel] Apixaban [Eliquis] 01/28/23 Doxycycline [Vibramycin] 01/28/23 traMADol [Ultram] 50 mg PO BID PRN #10 tablet 01/28/23 Fosfomycin Tromethamine 3 gm PO ONCE #1 packet 09/03/23 Nitrofurantoin [Macrobid] 100 mg PO BID #20 cap 09/03/23 - Allergies Allergies/Adverse Reactions: Allergies Allergy/AdvReac Type Severity Reaction Status Date / Time ertapenem Allergy Severe Unknown Verified 09/03/23 13:58 Penicillins Allergy Mild Rash Verified 09/03/23 13:58 chlorhexidine Allergy Unknown Itching Verified 09/03/23 13:58 morphine Allergy Unknown Itching Verified 09/03/23 13:58 gabapentin Allergy Unknown Verified 09/03/23 13:58 linezolid Allergy Nausea Verified 09/03/23 13:58 - Social History Does the pt smoke?: No Smoking Status: Never smoker Does the pt drink ETOH?: No Does the pt have substance abuse?: No - Immunizations Immunizations are current?: Yes - POLST Patient has POLST: Yes POLST Status: DNR (No intubation or CPR.) Results - Vitals Vitals: Vital Signs - 24 hr 09/03/23 09/03/23 09/03/23 13:58 15:30 17:28 Temperature 36.5 C Heart Rate 52 L 48 L 51 L Respiratory 16 14 14 Rate Blood Pressure 165/67 H 153/107 H 149/67 H O2 Saturation 98 100 100 09/03/23 17:59 Temperature Heart Rate 50 L Respiratory 16 Rate Blood Pressure O2 Saturation Oxygen O2 Source Room air - Labs Labs: Laboratory Tests 09/03/23 09/03/23 09/03/23 14:49 14:49 14:55 WBC 4.4 L RBC 4.39 Hgb 12.9 Hct 40.9 MCV 93.2 MCH 29.4 MCHC 31.5 L RDW 14.6 Plt Count 133 MPV 10.7 Neut # (Auto) 2.0 Lymph # (Auto) 2.0 [place] # (Auto) 0.3 Eos # (Auto) 0.1 Baso # (Auto) 0.0 Absolute Nucleated RBC 0.00 Nucleated RBC % 0.0 Sodium 141 Potassium 3.8 Chloride 108 Carbon Dioxide 30 Anion Gap 3.0 L BUN 14 Creatinine 0.4 L Estimated GFR (MDRD) 159 Glucose 82 Calcium 9.6 Total Bilirubin 0.3 AST 30 ALT 24 Alkaline Phosphatase 59 Total Protein 7.3 Albumin 3.9 Globulin 3.4 Albumin/Globulin Ratio 1.1 Lipase 26 Urine Color YELLOW Urine Clarity CLEAR Urine pH 5.5 Ur Specific [place] 1.025 Urine Protein NEGATIVE Urine Glucose (UA) NEGATIVE Urine Ketones NEGATIVE Urine Occult Blood NEGATIVE Urine Nitrite POSITIVE H Urine Bilirubin NEGATIVE Urine Urobilinogen 0.2 (NORMAL) Ur Leukocyte Esterase MODERATE H Urine RBC 0-5 Urine WBC 6-10 H Ur Squamous Epith Cells RARE Squamous Urine Bacteria Few Ur Microscopic Review INDICATED Urine Culture Comments INDICATED PD Medical Decision Making - ED course Complexity details: d/w ada accommodation consultant (the nurse for [facility] had initially called to alert of pt coming to ED and culture results. Stated culture ESBL sensitive to Inipenems, Macrobid, and did not specify others. ) Reviewed Lab Results: It unfortunately took 2-3 hours for our PHARMACY PICKING TECHNICIAN to get [facility] office to fax over the full results of this culture. Finally able to see the full sensitivity/resistande. Unfortunately, it is still holding that inipenems and macrobid, along with Piperacilllin. The patient is allergic to Inipenems and Penicillin (she is not sure of the reaction to PCN but was from their teenage years so not sure if it currently. The patient's UA is not too bad looking here after the 3 doses of fosfomyccin over 5 days. I am tempted to dose again the fosfomycin, along with macrobidl, pending culture from today to see if still actual infection, as hard to tell by just the UA results alone. Departure - Departure Disposition: 01 Home, Self Care Clinical Impression: Lower abdominal pain, UTI (urinary tract infection) Condition: Stable Record reviewed to determine appropriate education?: Yes Follow-Up: MARCIA MARIN PA-C [Physician No Access] - Prescriptions: Fosfomycin Tromethamine 3 gm PO ONCE #1 packet Nitrofurantoin [Macrobid] 100 mg PO BID #20 cap Comments: The urine culture result we finally got from [facility] urology showed sensitivity to just a couple of antibiotics. The main ones were imipenem's to which you are allergic. The other was a type of penicillin called piperacillin though it was resistant to regular penicillin so not clear that would be fully effective anyway. The main 1 otherwise was Macrobid/nitrofurantoin that it was sensitive to. Also typically these are not tested in the lab against the fosfomycin which she just took. At this point I would think redosing the fosfomycin in combination with nitrofurantoin and we will see what the current urine culture is showing. It may be that the antibiotic he just took is active against it and the infection has been clearing/cleared already. I sent the script to [facility]. Tylenol 500 to 650 mg 4 times a day for pains. Continue your other usual medicines. Stay well-hydrated. Follow-up with [facility]. Forms: PCP List Discharge Date/Time: 09/03/23 17:59
[2023-09-03] MEDS: HYDROmorphone 1 MG/ML CARPUJECT IM STA ×2 (14:47→17:17)
[2023-09-03] MEDS: ONDANSETRON 4 MG/2 ML VIAL IM STA (14:47)
[2023-09-03 14:55] LABS: BASOPHILS % (AUTO) 0.2 %; EOSINOPHILS # (AUTO) 0.1 10^3/uL (0.0-0.7); EOSINOPHILS % (AUTO) 2.3 %; HCT - HEMATOCRIT 40.9 % (37.0-47.0); HGB - HEMOGLOBIN 12.9 g/dL (12.0-16.0); LYMPHOCYTES % (AUTO) 45.2 %; MEAN CORPUSCULAR HEMOGLOBIN 29.4 pg (27.0-31.0); MEAN CORPUSCULAR HGB CONC 31.5 g/dL (32.0-36.0); MEAN CORPUSCULAR VOLUME 93.2 fL (81.0-99.0); MEAN PLATELET VOLUME 10.7 fL (7.9-10.8); MONOCYTES # (AUTO) 0.3 10^3/uL (0.0-1.0); NEUTROPHILS % (AUTO) 45.1 %; PLT - PLATELET COUNT 133 10^3/uL (130-450); RED BLOOD COUNT 4.39 10^6/uL (4.20-5.40); RED CELL DISTRIBUTION WIDTH 14.6 % (12.0-15.0); WHITE BLOOD COUNT 4.4 x10^3/uL (4.8-10.8)
[2023-09-03 15:07] LABS: ALBUMIN 3.9 g/dL (3.2-5.5); ALBUMIN/GLOBULIN RATIO 1.1 (1.0-2.2); BILIRUBIN,TOTAL 0.3 mg/dL (0.2-1.0); CALCIUM 9.6 mg/dL (8.5-10.3); CREATININE 0.4 mg/dL (0.6-1.3); POTASSIUM 3.8 mmol/L (3.5-4.5); TOTAL PROTEIN 7.3 g/dL (6.4-8.9)
[2023-09-03 15:10] LABS: BILIRUBIN,URINE NEGATIVE (NEGATIVE); GLUCOSE, URINE (UA) NEGATIVE (NEGATIVE); KETONES,URINE (UA) NEGATIVE (NEGATIVE); LEUKOCYTE ESTERASE, URINE MODERATE (NEGATIVE); NITRITE,URINE POSITIVE (NEGATIVE); OCCULT BLOOD,URINE NEGATIVE (NEGATIVE); PH,URINE 5.5 PH (5.0-7.5); PROTEIN,URINE NEGATIVE (NEGATIVE); UROBILINOGEN,URINE 0.2 (NORMAL) E.U./dL (NORMAL)
[2023-09-03 15:20] LABS: CLARITY,URINE CLEAR (CLEAR)
[2023-09-03 15:39] VITALS: O2SAT 100
[2023-09-03 15:51] LABS: BACTERIA,URINE Few /HPF (None Seen); RBC,URINE 0-5 /HPF (0-5); SQUAMOUS EPITHELIAL CELL,UR RARE Squamous (<= Few)
[2023-09-03] MEDS: NITROFURANTOIN MACRO 100 MG CAPSULE PO STA (17:16)
[2023-09-03] MEDS: FOSFOMYCIN TROMETHAMINE 3 GM PACKET PO STA (17:17)
[2023-09-03 17:37] VITALS: BP 149/67
== END 2023-09-03 17:59 | disposition home or self-care (01) ==
LOC: EDUNIT# → ED 13:56
DX: N39.0 Urinary tract infection, site not specified (principal); R10.30 Lower abdominal pain, unspecified; G82.20 Paraplegia, unspecified; E03.9 Hypothyroidism, unspecified; Z79.899 Other long term (current) drug therapy; Z79.01 Long term (current) use of anticoagulants
CPT/HCPCS: 36415; 80053; 81001; 83690; 85025; 87086; 96372; 99283; 99284; A9270; J1170; J8499; 81003

== ENCOUNTER 2024-01-15 18:45 | Outpatient (CLI) | payer MEDICARE, MEDICAID | END 2024-01-15 18:46 | disposition critical access hospital (66) | LOC: EMS 18:45 | DX: R11.2 Nausea with vomiting, unspecified (principal); R52 Pain, unspecified; Z99.3 Dependence on wheelchair | CPT/HCPCS: A0425; A0429 ==

== ENCOUNTER 2024-01-15 19:04 | Emergency (ER) | payer MEDICARE, MEDICAID ==
[2024-01-15 19:31] LABS: BASOPHILS % (AUTO) 0.2 %; HCT - HEMATOCRIT 41.8 % (37.0-47.0); HGB - HEMOGLOBIN 13.8 g/dL (12.0-16.0); LYMPHOCYTES # (AUTO) 0.5 10^3/uL (1.5-3.5); LYMPHOCYTES % (AUTO) 12.4 %; MEAN CORPUSCULAR HEMOGLOBIN 31.4 pg (27.0-31.0); MEAN PLATELET VOLUME 10.8 fL (7.9-10.8); MONOCYTES # (AUTO) 0.1 10^3/uL (0.0-1.0); MONOCYTES % (AUTO) 1.2 %; NEUTROPHILS # (AUTO) 3.6 10^3/uL (1.5-6.6); NEUTROPHILS % (AUTO) 85.7 %; PLT - PLATELET COUNT 152 10^3/uL (130-450); RED CELL DISTRIBUTION WIDTH 14.3 % (12.0-15.0); WHITE BLOOD COUNT 4.2 x10^3/uL (4.8-10.8)
[2024-01-15 19:45] LABS: ALBUMIN 4.5 g/dL (3.2-5.5); ALBUMIN/GLOBULIN RATIO 1.4 (1.0-2.2); ALKALINE PHOSPHATASE 50 IU/L (42-121); ALT ALANINE AMINOTRANSFERASE 19 IU/L (10-60); AST ASPARTATE AMINOTRANSFERASE 28 IU/L (10-42); BILIRUBIN,TOTAL 0.3 mg/dL (0.2-1.0); BUN - BLOOD UREA NITROGEN 14 mg/dL (6-20); CALCIUM 9.1 mg/dL (8.5-10.3); CARBON DIOXIDE - CO2 22 mmol/L (21-32); CHLORIDE 103 mmol/L (101-111); CREATININE 0.4 mg/dL (0.6-1.3); GFR - MDRD 159 (>89); GLUCOSE 118 mg/dL (74-104); LIPASE < 10 U/L (11-82); POTASSIUM 3.2 mmol/L (3.5-4.5); SODIUM 140 mmol/L (135-145); TOTAL PROTEIN 7.8 g/dL (6.4-8.9)
[2024-01-15] MEDS: ACETAMINOPHEN 500 MG TABLET PO STA (19:45)
[2024-01-15] MEDS: SODIUM CHLORIDE 0.9% 1,000 ML IV ONE ×2 (19:51→22:53)
[2024-01-15] MEDS: ONDANSETRON 4 MG/2 ML VIAL IVP STA ×2 (19:51→22:56)
[2024-01-15] MEDS ORDERED: iohexoL-300 100 ML VIAL ONE ×2 (20:39→21:18)
[2024-01-15] MEDS: iohexoL-300 100 ML VIAL IVP ONE (21:05)
--- NOTE | 2024-01-15 21:36 | CT Report ---
PROCEDURE: Abdomen/Pelvis W INDICATIONS: generalized abdominal pain CONTRAST: OMNI 300, 100mls TECHNIQUE: After the administration of intravenous contrast, a CT scan of the abdomen and pelvis was performed. Images were recorded and evaluated at appropriate window settings. Reformats: coronal and sagittal. F or radiation dose reduction, the following was used: automated exposure control, adjustment of mA and /or kV according to patient size. COMPARISON: CT abdomen and pelvis 08/24/2022, 01/27/2022. FINDINGS: Image quality: Diagnostic. Lower chest: Unremarkable. Liver: No solid mass. Gallbladder: Cholelithiasis without wall thickening. Biliary tree: No intrahepatic or extrahepatic dilation, accounting for age. Spleen: No splenomegaly. Pancreas: No pancreatic ductal dilation. Adrenals: No adrenal nodule. Kidneys and ureters: No hydronephrosis. No renal cystic lesion which requires follow up. No solid mas s. Stomach, bowel and peritoneum: Stomach is within normal limits. No small bowel obstruction. Normal ap pendix. There is a large amount of stool in the distal colon and rectum. No pathologic free fluid. Lymph nodes: No central or retroperitoneal adenopathy. Vessels: No infrarenal aortic aneurysm. Circumferential calcified plaque. Patent portal vein. PELVIS Reproductive organs: Anteverted uterus. Bladder: Decompressed a Stephens catheter. There is excreted contrast in the urinary bladder. The Stephens catheter transverses the posterior perineum. Pelvic lymph nodes: No pelvic adenopathy by size criteria. Bones: Lumbar spine bone graft. Fixation hardware spanning the thoracic-sacral spine. No hardware fra cture. Resection of the distal sacrum/coccyx. Dislocation of the left hip. Pelvic bones have a hetero geneous appearance with sclerosis at the pubic bone. Overall similar appearance. Other: Right adrenal hernia containing bowel. Possible fat-containing left femoral hernia. There is e xtensive soft tissue thickening with subcutaneous gas at the posterior peritoneum. This extends to th e pubic bone. The thickening posterior to the femurs. Asymmetric soft tissue thickening adjacent to t he left hip. Overall these findings are similar. IMPRESSION: 1. Fecal impaction. 2. No small bowel obstruction. Right inguinal hernia contains small bowel is similar. 3. Similar decubitus ulcers. Chronic dislocation at the left hip with similar soft tissue thickening. Similar heterogeneous appearance of the pelvic bones. Findings could be due to chronic osteomyelitis . Reviewed by: Aleks Plummer MD on 01/15/2024 9:34 PM PDT Approved by: Aleks Plummer MD on 01/15/2024 9:34 PM PDT Station ID: [id number]
[2024-01-15] MEDS: KETOROLAC 30 MG/ML VIAL IVP STA (21:41)
[2024-01-15 21:42] LABS: BILIRUBIN,URINE NEGATIVE (NEGATIVE); GLUCOSE, URINE (UA) NEGATIVE (NEGATIVE); KETONES,URINE (UA) >=80 mg/dL (NEGATIVE); LEUKOCYTE ESTERASE, URINE SMALL (NEGATIVE); NITRITE,URINE POSITIVE (NEGATIVE); OCCULT BLOOD,URINE TRACE-INTA (NEGATIVE); PROTEIN,URINE NEGATIVE (NEGATIVE); UROBILINOGEN,URINE 0.2 (NORMAL) E.U./dL (NORMAL)
[2024-01-15 21:48] LABS: CLARITY,URINE HAZY (CLEAR)
[2024-01-15 21:49] LABS: BACTERIA,URINE Few /HPF (None Seen); RBC,URINE 0-5 /HPF (0-5); SQUAMOUS EPITHELIAL CELL,UR RARE Squamous (<= Few)
[2024-01-15 21:54] LABS: AMPHETAMINE SCREEN,URINE NEGATIVE (NEGATIVE); BARBITURATE SCREEN,UR NEGATIVE (NEGATIVE); BENZODIAZEPINES SCREEN, URINE NEGATIVE (NEGATIVE); BUPRENORPHINE SCREEN, URINE NEGATIVE (NEGATIVE); COCAINE SCREEN URINE NEGATIVE (NEGATIVE); METHADONE SCREEN, URINE NEGATIVE (NEGATIVE); METHAMPHETAMINES SCREEN, URINE NEGATIVE (NEGATIVE); OPIATE SCREEN, URINE NEGATIVE (NEGATIVE); OXYCODONE SCREEN, URINE NEGATIVE (NEGATIVE); THC CANNABINOID SCREEN, URINE POSITIVE (NEGATIVE); TRICYCLIC ANTIDEPRESSANT,URINE NEGATIVE (NEGATIVE)
--- NOTE | 2024-01-15 22:42 | ED Physician Documentation ---
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 She says that she has been having vomiting all day today and all of her body pain. She is unsure if 70 fevers or chills she lives at home alone and feels like she has not been able to drink any fluids or food in. PD PAST MEDICAL HISTORY - Past Medical History Cardiovascular: Deep vein thrombosis Respiratory: None Neuro: Head injury, Migraines, Seizure disorder Endocrine/Autoimmune: HyPOthyroidism GI: Hepatitis, Cholelithiasis OUTPATIENT COORDINATOR: Other : Retention, Kidney stones, Other HEENT: Chronic vision loss Psych: Depression, Anxiety Musculoskeletal: Osteoarthritis, Paraplegia, Fatigue, Chronic back pain, Other Derm: Other - Past Surgical History Past Surgical History: Yes Ortho: Spine surgery /OUTPATIENT COORDINATOR: Tubal ligation HEENT: Tonsil/Adenoidectomy Derm: Skin grafts - Present Medications Home Medications: Ambulatory Orders Medication Instructions Recorded Confirmed Oxybutynin Chloride 5 mg PO TID PRN 02/19/19 01/28/23 Ginkgo Biloba [place] Extract [Ginkgo 1 cap PO BID 08/25/22 01/28/23 Biloba Extract] Glucosamine HCl/Chondroitin Sp[place]y 1 cap PO BID 08/25/22 01/28/23 [Glucosamine-Chondroitin Cap] traMADol [Ultram] 50 mg PO QID PRN 08/25/22 08/25/22 Metoprolol Succinate [Toprol Xl] 50 mg PO DAILY #30 tab 08/29/22 Mvn-Min75/Iron/Iron Ps/Om3/Dha 1 each PO DAILY #100 cap 08/29/22 01/28/23 [Wescap-C Dha Softgel] Apixaban [Eliquis] 01/28/23 Doxycycline [Vibramycin] 01/28/23 traMADol [Ultram] 50 mg PO BID PRN #10 tablet 01/28/23 Fosfomycin Tromethamine 3 gm PO ONCE #1 packet 09/03/23 Nitrofurantoin [Macrobid] 100 mg PO BID #20 cap 09/03/23 - Allergies Allergies/Adverse Reactions: Allergies Allergy/AdvReac Type Severity Reaction Status Date / Time ertapenem Allergy Severe Unknown Verified 09/03/23 13:58 Penicillins Allergy Mild Rash Verified 09/03/23 13:58 chlorhexidine Allergy Unknown Itching Verified 09/03/23 13:58 morphine Allergy Unknown Itching Verified 09/03/23 13:58 gabapentin Allergy Unknown Verified 09/03/23 13:58 linezolid Allergy Nausea Verified 09/03/23 13:58 - Social History Does the pt smoke?: No Smoking Status: Never smoker Does the pt drink ETOH?: No Does the pt have substance abuse?: No - Immunizations Immunizations are current?: Yes - POLST Patient has POLST: Yes POLST Status: DNR (No intubation or CPR.) PD ED PE NORMAL - Vitals Vital signs reviewed: Yes - General General: Alert and oriented X 3, Other (Cachectic) - HEENT HEENT: Atraumatic, PERRL - Abdomen Abdomen: Normal bowel sounds, Soft, Non tender, No organomegaly - Back Back: No CVA TTP - Derm Derm: Other (Stage I pressure ulcers to buttocks) PD ED PE EXPANDED - Rectal Rectal: Drywall Hanger Framer present (Jitendra Ugalde at bedside, Large stool [place]. Extracted with digital stimulation) Results - Vitals Vitals: Vital Signs - 24 hr 01/15/24 01/15/24 01/15/24 19:12 20:15 21:15 Temperature 36.5 C 36.6 C Heart Rate 81 69 Respiratory 18 14 Rate Blood Pressure 161/90 H 143/69 H O2 Saturation 100 100 01/15/24 21:44 Temperature Heart Rate 95 Respiratory 16 Rate Blood Pressure 139/67 H O2 Saturation 98 Oxygen O2 Source Room air - Labs Labs: Laboratory Tests 01/15/24 01/15/24 01/15/24 19:20 19:20 19:20 WBC 4.2 L RBC 4.40 Hgb 13.8 Hct 41.8 MCV 95.0 MCH 31.4 H MCHC 33.0 RDW 14.3 Plt Count 152 MPV 10.8 Neut # (Auto) 3.6 Lymph # (Auto) 0.5 L Hill # (Auto) 0.1 Eos # (Auto) 0.0 Baso # (Auto) 0.0 Absolute Nucleated RBC 0.00 Nucleated RBC % 0.0 Sodium 140 Potassium 3.2 L Chloride 103 Carbon Dioxide 22 Anion Gap 15.0 H BUN 14 Creatinine 0.4 L Estimated GFR (MDRD) 159 Glucose 118 H Calcium 9.1 Magnesium 1.6 L Total Bilirubin 0.3 AST 28 ALT 19 Alkaline Phosphatase 50 Total Protein 7.8 Albumin 4.5 Globulin 3.3 Albumin/Globulin Ratio 1.4 Lipase < 10 L Urine Color Urine Clarity Urine pH Ur Specific [place] Urine Protein Urine Glucose (UA) Urine Ketones Urine Occult Blood Urine Nitrite Urine Bilirubin Urine Urobilinogen Ur Leukocyte Esterase Urine RBC Urine WBC Ur Squamous Epith Cells Urine Bacteria Ur Microscopic Review Urine Culture Comments Nasal Adenovirus (PCR) Nasal B. parapertussis DNA (PCR) Nasal Coronavir 229E PCR Nasal Coronavir HKU1 PCR Nasal Coronavir NL63 PCR Nasal Coronavir OC43 PCR Nasal Enterovir/Rhinovir PCR Nasal Influenza B PCR Nasal Influenza A PCR Nasal Parainfluen 1 PCR Nasal Parainfluen 2 PCR Nasal Parainfluen 3 PCR Nasal Parainfluen 4 PCR Nasal RSV (PCR) Nasal B.pertussis DNA PCR Nasal C.pneumoniae (PCR) [place] Human Metapneumo PCR Nasal M.pneumoniae (PCR) Nasal SARS-CoV-2 (PCR) Urine Opiates Screen Ur Buprenorphine Scrn Ur Oxycodone Screen Urine Methadone Screen Ur Barbiturates Screen Ur Tricyclics Screen Ur Phencyclidine Scrn Ur Amphetamine Screen U Methamphetamines Scrn U Benzodiazepines Scrn Urine Cocaine Screen U Cannabinoids Screen Ur Drug Screen Comment 01/15/24 01/15/24 01/15/24 19:47 21:33 21:33 WBC RBC Hgb Hct MCV MCH MCHC RDW Plt Count MPV Neut # (Auto) Lymph # (Auto) Hill # (Auto) Eos # (Auto) Baso # (Auto) Absolute Nucleated RBC Nucleated RBC % Sodium Potassium Chloride Carbon Dioxide Anion Gap BUN Creatinine Estimated GFR (MDRD) Glucose Calcium Magnesium Total Bilirubin AST ALT Alkaline Phosphatase Total Protein Albumin Globulin Albumin/Globulin Ratio Lipase Urine Color YELLOW Urine Clarity HAZY Urine pH 6.0 Ur Specific [place] 1.020 Urine Protein NEGATIVE Urine Glucose (UA) NEGATIVE Urine Ketones >=80 H Urine Occult Blood TRACE-INTA Urine Nitrite POSITIVE H Urine Bilirubin NEGATIVE Urine Urobilinogen 0.2 (NORMAL) Ur Leukocyte Esterase SMALL H Urine RBC 0-5 Urine WBC 11-25 H Ur Squamous Epith Cells RARE Squamous Urine Bacteria Few Ur Microscopic Review INDICATED Urine Culture Comments INDICATED Nasal Adenovirus (PCR) NOT DETECTED Nasal B. parapertussis DNA (PCR) NOT DETECTED Nasal Coronavir 229E PCR NOT DETECTED Nasal Coronavir HKU1 PCR NOT DETECTED Nasal Coronavir NL63 PCR NOT DETECTED Nasal Coronavir OC43 PCR NOT DETECTED Nasal Enterovir/Rhinovir PCR NOT DETECTED Nasal Influenza B PCR NOT DETECTED Nasal Influenza A PCR NOT DETECTED Nasal Parainfluen 1 PCR NOT DETECTED Nasal Parainfluen 2 PCR NOT DETECTED Nasal Parainfluen 3 PCR NOT DETECTED Nasal Parainfluen 4 PCR NOT DETECTED Nasal RSV (PCR) NOT DETECTED Nasal B.pertussis DNA PCR NOT DETECTED Nasal C.pneumoniae (PCR) NOT DETECTED [place] Human Metapneumo PCR NOT DETECTED Nasal M.pneumoniae (PCR) NOT DETECTED Nasal SARS-CoV-2 (PCR) NOT DETECTED Urine Opiates Screen NEGATIVE Ur Buprenorphine Scrn NEGATIVE Ur Oxycodone Screen NEGATIVE Urine Methadone Screen NEGATIVE Ur Barbiturates Screen NEGATIVE Ur Tricyclics Screen NEGATIVE Ur Phencyclidine Scrn NEGATIVE Ur Amphetamine Screen NEGATIVE U Methamphetamines Scrn NEGATIVE U Benzodiazepines Scrn NEGATIVE Urine Cocaine Screen NEGATIVE U Cannabinoids Screen POSITIVE H Ur Drug Screen Comment CUTOFF CONC BELOW: - Rads (name of study) CT abdomen pelvis with contrast Relevant Findings:: Final report received, EMP independent interpretation of test, Other (Fecal impaction no small bowel obstruction right inguinal hernia contains small bowel and is similar small decubitus ulcers chronic dislocation of the left hip with similar soft tissue thickening similar heterogenous appearance of the pelvic bones.) PD Medical Decision Making - ED course ED course: 68-year-old female presents emergency department for generalized malaise and unwell feeling with nausea and vomiting. CT abdomen pelvis was complete for further evaluation and patient appears to have a large fecal impaction with no small bowel obstruction. Upon further evaluation patient says that she normally does this about once a week, digital disimpaction but has not been able able to do so over the last couple days because she has been feeling unwell. I was able to successfully disimpact the patient with a large amount of stool she was also given a dose of MiraLAX here in the emergency department to help with keeping things moving. Labs are complete for further evaluation and she does have very mild leukopenia, 4.2 patient appears to chronically have history of leukopenia in the past. Mild hypokalemia, 3.2 and mild hypomagnesemia 1.6 these were both replaced orally with supplements. Urinalysis is positive for nitrites and leukocytes urine was sent for cultures for further evaluation she was started on ciprofloxacin as this is one of the antibiotics she was still sensitive to from her last microbiology urine cultures. Prescription sent to her preferred pharmacy she does smoke cannabinoids she was told that this could be leading to her hyperemesis and her nausea vomiting and symptoms are well-controlled here in the emergency department with Zofran and 2 L of IV fluid. I do not have any indication to admit the patient she says that she would like to be admitted but unfortunately I do not have any criteria to admit the patient overnight. Return precautions given all questions answered patient safe for discharge. Departure - Departure Disposition: 01 Home, Self Care Clinical Impression: Fecal impaction in rectum, Hypokalemia Forms: PCP List
[2024-01-15 22:46] LABS: B. PARAPERTUSSIS- RESP PCR PAN NOT DETECTED; B. PERTUSSIS- RESP PCR PANEL NOT DETECTED; C. PNEUMONIAE- RESP PCR PANEL NOT DETECTED; CORONAVIRUS 229E-RESP PCR NOT DETECTED; CORONAVIRUS HKU1-RESP PCR NOT DETECTED; CORONAVIRUS NL63-RESP PCR NOT DETECTED; CORONAVIRUS OC43-RESP PCR NOT DETECTED; HUMAN METAPNEUMOVIRUS NOT DETECTED; INFLUENZA A- RESP PCR PANEL NOT DETECTED; INFLUENZA B - RESP PCR PANEL NOT DETECTED; M. PNEUMONIAE- RESP PCR PANEL NOT DETECTED; PARAINFLUENZA VIRUS 1 NOT DETECTED; PARAINFLUENZA VIRUS 2 NOT DETECTED; PARAINFLUENZA VIRUS 3 NOT DETECTED; PARAINFLUENZA VIRUS 4 NOT DETECTED; RHINOVIRUS/ENTEROVIRUS NOT DETECTED; RSV- RESP PCR PANEL NOT DETECTED; SARS-CoV-2 -RESP PCR PANEL NOT DETECTED
[2024-01-15] MEDS: POTASSIUM CHLORIDE 20 MEQ TABLET PO STA (22:57)
[2024-01-15] MEDS: CIPROFLOXACIN 250 MG TABLET PO STA (22:58)
[2024-01-15] MEDS: polyethylene glycoL 3350 17 GM PACKET PO STA (23:01)
[2024-01-15 23:09] VITALS: O2SAT 100
[2024-01-16 00:16] VITALS: BP 138/70
== END 2024-01-16 00:09 | disposition home or self-care (01) ==
LOC: EDUNIT# → ED 19:04
DX: K56.41 Fecal impaction (principal); E87.6 Hypokalemia; E83.42 Hypomagnesemia; G40.802 Other epilepsy, not intractable, without status epilepticus; E03.9 Hypothyroidism, unspecified; Z86.718 Personal history of other venous thrombosis and embolism; Z87.442 Personal history of urinary calculi; G82.20 Paraplegia, unspecified; Z79.01 Long term (current) use of anticoagulants; Z79.899 Other long term (current) drug therapy
CPT/HCPCS: 36415; 74177; 80053; 80306; 81001; 83690; 83735; 85025; 87086; 87633; 96361; 96374; 96375; 96376; 99284; A9270; Q9967; 81003

== ENCOUNTER 2024-01-16 00:13 | Outpatient (CLI) | payer MEDICARE, MEDICAID | END 2024-01-16 00:14 | disposition home or self-care (01) | LOC: EMS 00:13 | PROVIDERS: ATTEND Nurse Practitioner | DX: N39.0 Urinary tract infection, site not specified (principal); G82.20 Paraplegia, unspecified; Z74.01 Bed confinement status | CPT/HCPCS: A0425; A0428 ==

== ENCOUNTER 2024-01-29 11:30 | Outpatient (CLI) | payer MEDICARE, MEDICAID ==
[2024-01-29 23:26] LABS: BACTERIAL VAGINOSIS DNA NEGATIVE (NEGATIVE); CANDIDA GLABRATA DNA NEGATIVE (NEGATIVE); CANDIDA GROUP DNA NEGATIVE (NEGATIVE); CANDIDA KRUSEI DNA NEGATIVE (NEGATIVE); TRICHOMONAS VAGINALIS DNA NEGATIVE (NEGATIVE)
== END 2024-01-29 11:45 | disposition home or self-care (01) ==
LOC: LAB.N 11:30
PROVIDERS: ATTEND Nurse Practitioner
DX: N39.0 Urinary tract infection, site not specified (principal); N94.89 Other specified conditions associated with female genital organs and menstrual cycle
CPT/HCPCS: 81514; 87086; 87101